=== PATIENT | female | born 1930 | race Caucasian/White ===

== ENCOUNTER → 2017-08-11 13:22 | Inpatient (IN) | payer MEDICAID, MEDICARE ==
[2015-05-14] MEDS: CALCIUM CARBONATE PO SCH (21:10)
[2015-05-14] MEDS: DABIGATRAN 150 MG PO SCH (21:10)
[2015-05-14] MEDS: ZINC GLUCONATE PO SCH (21:10)
[2015-05-14] MEDS: MAGNESIUM OXIDE PO SCH (21:10)
[2015-05-14] MEDS: UBIDECARENONE 100 MG PO SCH (21:10)
[2015-05-14] MEDS: CALCIUM PO SCH (21:11)
[2015-05-14] MEDS: OMEGA FISH OIL PO SCH (21:11)
[2015-05-14] MEDS: [UNRECOGNIZED DRUG - OTHER] PO SCH (21:11)
[2015-05-14] MEDS: MULTIVITAMINS WITH IRON PO SCH (21:11)
[2015-05-14] MEDS: FOLIC ACID PO SCH (21:11)
--- NOTE | 2015-05-14 23:37 | HP ---
CHIEF COMPLAINT: Increasing leg weakness. HISTORY OF PRESENT ILLNESS: This is an 85-year-old female, who previously lived independently at her home in [place], however, she is having increasing weakness of her legs and difficulty getting around her home over the last several years, but definitely increasing in the last 6 months. The patient does have a history of atrial fibrillation. She denies any fast heart rates, unless she drinks caffeine. She has never had a heart attack or stroke. She does have hypothyroidism, treated with Synthroid. Otherwise also does take metoprolol, but no other prescription medications. She relies on a bath aide to come in her home and help her once a week. She is having difficulty with getting dressed due to shoulder pain. ALLERGIES: Include none. MEDICATIONS: Include, metoprolol 12.5 mg daily, Coenzyme Q10 100 b.i.d., calcium, magnesium and zinc daily, vitamin D 5000 units daily, Shedd-3 1200 daily, multivitamin daily, levothyroxine 75 mcg daily and Pradaxa 150 b.i.d. PAST MEDICAL HISTORY: Includes, 1. Atrial fibrillation with possible TIA with vision changes back in 2010, admitted to [facility] for that. 2. Hypothyroidism. 3. Leg weakness. 4. Hypertension. 5. Osteoarthritis. PAST SURGICAL HISTORY: She has had cataracts and a partial hysterectomy. FAMILY HISTORY: Her mom had an MD at 62, . Dad had breast cancer at age 80, but lived to [facility]08/11. He had heart disease and a pacer as well. SOCIAL HISTORY: She is . Her had Alzheimer's, about 4 years ago. She has 4 children. She has a daughter who lives in [place], also who works at the hospital. A son in [place]. Another son in [place] and one in [place], [place]. She is a nonsmoker, nondrinker. REVIEW OF SYSTEMS: General: No weight changes. Neurologic: No numbness, no tingling. Musculoskeletal: She has knee pain especially on the left knee. Cardiac: No chest pain. No cough. No shortness of breath. Respiratory: No coughing. Abdomen: No abdominal pain, diarrhea or constipation. Otherwise all systems reviewed and found to be negative unless otherwise stated. PHYSICAL EXAMINATION: Vital Signs: Include a temperature of 98, pulse 52, blood pressure 143/70, respiratory rate 16, O2 96% on room air. General: She is in no acute distress. Heart: Irregularly irregular without murmur. Lungs: Sounds are clear to auscultation bilaterally without crackles or wheezes. Abdomen: Positive bowel sounds. Soft and nontender. Extremities: Warm and dry, no edema. Dorsalis pedis pulses 2+. Mental Status: She is alert and orientated x3. Gait was not observed. ASSESSMENT AND PLAN: Leg weakness and pain, probably related to arthritis. We will continue to monitor her thyroid. Her last TSH was suppressed. We will also check a CK, ESR, B12 level to rule out other causes of weakness and we will do that right now. She did have lab work back in March as well, and her glucose was 125 at that point, so we will check an A1c also. Otherwise, CBC again for weakness. We will continue to monitor her on Swing Bed with PT and OT involved, Senior Wealth Advisor as well. The patient does not feel she can return home and needs assistance for dressing and bathing and toileting. MKA: 05/14/2015 17:41:04 MODL: 05/14/2015 23:30:43 /[id number]
[2015-05-15] MEDS: Levothyroxine 75 MCG Tab PO SCH (06:24)
[2015-05-15] MEDS: CHOLECALCIFEROL 5000 UNIT PO SCH (08:58)
[2015-05-15] MEDS: METOPROLOL TARTRATE 12.5 MG PO SCH (08:59)
[2015-05-15] MEDS: DABIGATRAN 150 MG PO SCH ×2 (09:00→20:19)
[2015-05-15] MEDS: UBIDECARENONE 100 MG PO SCH ×2 (09:01→20:18)
[2015-05-15] MEDS: CALCIUM CARBONATE PO SCH (20:14)
[2015-05-15] MEDS: ZINC GLUCONATE PO SCH (20:14)
[2015-05-15] MEDS: MAGNESIUM OXIDE PO SCH (20:14)
[2015-05-15] MEDS: OMEGA FISH OIL PO SCH (20:15)
[2015-05-15] MEDS: CALCIUM PO SCH (20:18)
[2015-05-15] MEDS: [UNRECOGNIZED DRUG - OTHER] PO SCH (20:18)
[2015-05-15] MEDS: MULTIVITAMINS WITH IRON PO SCH (20:18)
[2015-05-15] MEDS: FOLIC ACID PO SCH (20:18)
[2015-05-16] MEDS: Levothyroxine 75 MCG Tab PO SCH (06:09)
[2015-05-16] MEDS: CHOLECALCIFEROL 5000 UNIT PO SCH (09:04)
[2015-05-16] MEDS: METOPROLOL TARTRATE 12.5 MG PO SCH (09:05)
[2015-05-16] MEDS: UBIDECARENONE 100 MG PO SCH ×2 (09:06→20:33)
[2015-05-16] MEDS: DABIGATRAN 150 MG PO SCH ×2 (09:06→20:31)
[2015-05-16] MEDS: FOLIC ACID PO SCH (20:32)
[2015-05-16] MEDS: MAGNESIUM OXIDE PO SCH (20:32)
[2015-05-16] MEDS: MULTIVITAMINS WITH IRON PO SCH (20:32)
[2015-05-16] MEDS: CALCIUM CARBONATE PO SCH (20:32)
[2015-05-16] MEDS: CALCIUM PO SCH (20:32)
[2015-05-16] MEDS: ZINC GLUCONATE PO SCH (20:32)
[2015-05-16] MEDS: [UNRECOGNIZED DRUG - OTHER] PO SCH (20:32)
[2015-05-16] MEDS: OMEGA FISH OIL PO SCH (20:33)
[2015-05-17] MEDS: Levothyroxine 75 MCG Tab PO SCH (06:05)
[2015-05-17] MEDS: UBIDECARENONE 100 MG PO SCH ×2 (08:41→20:04)
[2015-05-17] MEDS: METOPROLOL TARTRATE 12.5 MG PO SCH (08:42)
[2015-05-17] MEDS: CHOLECALCIFEROL 5000 UNIT PO SCH (08:42)
[2015-05-17] MEDS: DABIGATRAN 150 MG PO SCH ×2 (08:43→20:03)
[2015-05-17] MEDS: CALCIUM CARBONATE PO SCH (20:03)
[2015-05-17] MEDS: FOLIC ACID PO SCH (20:03)
[2015-05-17] MEDS: MAGNESIUM OXIDE PO SCH (20:03)
[2015-05-17] MEDS: [UNRECOGNIZED DRUG - OTHER] PO SCH (20:03)
[2015-05-17] MEDS: ZINC GLUCONATE PO SCH (20:03)
[2015-05-17] MEDS: CALCIUM PO SCH (20:03)
[2015-05-17] MEDS: MULTIVITAMINS WITH IRON PO SCH (20:03)
[2015-05-17] MEDS: OMEGA FISH OIL PO SCH (20:03)
[2015-05-18] MEDS: Levothyroxine 75 MCG Tab PO SCH (06:00)
[2015-05-18] MEDS: CHOLECALCIFEROL 5000 UNIT PO SCH (09:41)
[2015-05-18] MEDS: DABIGATRAN 150 MG PO SCH ×2 (09:42→19:47)
[2015-05-18] MEDS: METOPROLOL TARTRATE 12.5 MG PO SCH (09:42)
[2015-05-18] MEDS: UBIDECARENONE 100 MG PO SCH ×2 (09:43→19:49)
[2015-05-18] MEDS: ZINC GLUCONATE PO SCH (19:47)
[2015-05-18] MEDS: OMEGA FISH OIL PO SCH (19:47)
[2015-05-18] MEDS: MAGNESIUM OXIDE PO SCH (19:47)
[2015-05-18] MEDS: CALCIUM CARBONATE PO SCH (19:47)
[2015-05-18] MEDS: [UNRECOGNIZED DRUG - OTHER] PO SCH (19:48)
[2015-05-18] MEDS: CALCIUM PO SCH (19:48)
[2015-05-18] MEDS: FOLIC ACID PO SCH (19:48)
[2015-05-18] MEDS: MULTIVITAMINS WITH IRON PO SCH (19:48)
[2015-05-19] MEDS: Levothyroxine 75 MCG Tab PO SCH (06:10)
[2015-05-19] MEDS: METOPROLOL TARTRATE 12.5 MG PO SCH (10:02)
[2015-05-19] MEDS: CHOLECALCIFEROL 5000 UNIT PO SCH (10:03)
[2015-05-19] MEDS: UBIDECARENONE 100 MG PO SCH ×2 (10:04→20:50)
[2015-05-19] MEDS: DABIGATRAN 150 MG PO SCH ×2 (10:04→20:50)
[2015-05-19] MEDS: MAGNESIUM OXIDE PO SCH (20:49)
[2015-05-19] MEDS: CALCIUM CARBONATE PO SCH (20:49)
[2015-05-19] MEDS: ZINC GLUCONATE PO SCH (20:49)
[2015-05-19] MEDS: [UNRECOGNIZED DRUG - OTHER] PO SCH (20:50)
[2015-05-19] MEDS: MULTIVITAMINS WITH IRON PO SCH (20:50)
[2015-05-19] MEDS: CALCIUM PO SCH (20:50)
[2015-05-19] MEDS: FOLIC ACID PO SCH (20:50)
[2015-05-19] MEDS: OMEGA FISH OIL PO SCH (20:50)
[2015-05-20] MEDS: Levothyroxine 75 MCG Tab PO SCH (06:51)
[2015-05-20] MEDS: DABIGATRAN 150 MG PO SCH ×2 (08:19→20:21)
[2015-05-20] MEDS: CHOLECALCIFEROL 5000 UNIT PO SCH (08:20)
[2015-05-20] MEDS: UBIDECARENONE 100 MG PO SCH ×2 (08:20→20:22)
[2015-05-20] MEDS: METOPROLOL TARTRATE 12.5 MG PO SCH (08:20)
[2015-05-20] MEDS: OMEGA FISH OIL PO SCH (20:21)
[2015-05-20] MEDS: MAGNESIUM OXIDE PO SCH (20:21)
[2015-05-20] MEDS: CALCIUM CARBONATE PO SCH (20:21)
[2015-05-20] MEDS: ZINC GLUCONATE PO SCH (20:21)
[2015-05-20] MEDS: FOLIC ACID PO SCH (20:22)
[2015-05-20] MEDS: MULTIVITAMINS WITH IRON PO SCH (20:22)
[2015-05-20] MEDS: CALCIUM PO SCH (20:22)
[2015-05-20] MEDS: [UNRECOGNIZED DRUG - OTHER] PO SCH (20:22)
[2015-05-21] MEDS: Levothyroxine 75 MCG Tab PO SCH (06:29)
[2015-05-21] MEDS: CHOLECALCIFEROL 5000 UNIT PO SCH (08:51)
[2015-05-21] MEDS: METOPROLOL TARTRATE 12.5 MG PO SCH (08:51)
[2015-05-21] MEDS: UBIDECARENONE 100 MG PO SCH ×2 (08:52→20:02)
[2015-05-21] MEDS: DABIGATRAN 150 MG PO SCH ×2 (08:52→20:01)
[2015-05-21] MEDS: Acetaminophen 500 MG Tab PO PRN (14:39)
[2015-05-21] MEDS: CALCIUM PO SCH (20:01)
[2015-05-21] MEDS: [UNRECOGNIZED DRUG - OTHER] PO SCH (20:01)
[2015-05-21] MEDS: MULTIVITAMINS WITH IRON PO SCH (20:01)
[2015-05-21] MEDS: FOLIC ACID PO SCH (20:01)
[2015-05-21] MEDS: OMEGA FISH OIL PO SCH (20:01)
[2015-05-21] MEDS: MAGNESIUM OXIDE PO SCH (20:02)
[2015-05-21] MEDS: CALCIUM CARBONATE PO SCH (20:02)
[2015-05-21] MEDS: ZINC GLUCONATE PO SCH (20:02)
[2015-05-22] MEDS: Levothyroxine 75 MCG Tab PO SCH (06:12)
[2015-05-22] MEDS: UBIDECARENONE 100 MG PO SCH ×2 (07:53→19:38)
[2015-05-22] MEDS: CHOLECALCIFEROL 5000 UNIT PO SCH (07:54)
[2015-05-22] MEDS: METOPROLOL TARTRATE 12.5 MG PO SCH ×2 (07:54→08:00)
[2015-05-22] MEDS: DABIGATRAN 150 MG PO SCH ×2 (07:55→19:37)
[2015-05-22] MEDS: ZINC GLUCONATE PO SCH (19:37)
[2015-05-22] MEDS: MAGNESIUM OXIDE PO SCH (19:37)
[2015-05-22] MEDS: CALCIUM CARBONATE PO SCH (19:37)
[2015-05-22] MEDS: FOLIC ACID PO SCH (19:38)
[2015-05-22] MEDS: CALCIUM PO SCH (19:38)
[2015-05-22] MEDS: MULTIVITAMINS WITH IRON PO SCH (19:38)
[2015-05-22] MEDS: [UNRECOGNIZED DRUG - OTHER] PO SCH (19:38)
[2015-05-22] MEDS: OMEGA FISH OIL PO SCH (19:38)
[2015-05-23] MEDS: Levothyroxine 75 MCG Tab PO SCH (06:12)
[2015-05-23] MEDS: DABIGATRAN 150 MG PO SCH ×2 (07:56→20:39)
[2015-05-23] MEDS: UBIDECARENONE 100 MG PO SCH ×2 (07:57→20:39)
[2015-05-23] MEDS: CHOLECALCIFEROL 5000 UNIT PO SCH (07:57)
[2015-05-23] MEDS: METOPROLOL TARTRATE 12.5 MG PO SCH (07:57)
[2015-05-23] MEDS: CALCIUM CARBONATE PO SCH (20:38)
[2015-05-23] MEDS: MAGNESIUM OXIDE PO SCH (20:38)
[2015-05-23] MEDS: ZINC GLUCONATE PO SCH (20:38)
[2015-05-23] MEDS: [UNRECOGNIZED DRUG - OTHER] PO SCH (20:39)
[2015-05-23] MEDS: FOLIC ACID PO SCH (20:39)
[2015-05-23] MEDS: OMEGA FISH OIL PO SCH (20:39)
[2015-05-23] MEDS: CALCIUM PO SCH (20:39)
[2015-05-23] MEDS: MULTIVITAMINS WITH IRON PO SCH (20:39)
[2015-05-24] MEDS: Levothyroxine 75 MCG Tab PO SCH (05:57)
[2015-05-24] MEDS: CHOLECALCIFEROL 5000 UNIT PO SCH (08:18)
[2015-05-24] MEDS: DABIGATRAN 150 MG PO SCH ×2 (08:23→20:20)
[2015-05-24] MEDS: UBIDECARENONE 100 MG PO SCH ×2 (08:23→20:21)
[2015-05-24] MEDS: METOPROLOL TARTRATE 12.5 MG PO SCH (08:25)
[2015-05-24] MEDS: ZINC GLUCONATE PO SCH (20:20)
[2015-05-24] MEDS: OMEGA FISH OIL PO SCH (20:20)
[2015-05-24] MEDS: MAGNESIUM OXIDE PO SCH (20:20)
[2015-05-24] MEDS: CALCIUM CARBONATE PO SCH (20:20)
[2015-05-24] MEDS: CALCIUM PO SCH (20:21)
[2015-05-24] MEDS: MULTIVITAMINS WITH IRON PO SCH (20:21)
[2015-05-24] MEDS: FOLIC ACID PO SCH (20:21)
[2015-05-24] MEDS: [UNRECOGNIZED DRUG - OTHER] PO SCH (20:21)
[2015-05-25] MEDS: Levothyroxine 75 MCG Tab PO SCH (06:22)
[2015-05-25] MEDS: METOPROLOL TARTRATE 12.5 MG PO SCH (08:54)
[2015-05-25] MEDS: CHOLECALCIFEROL 5000 UNIT PO SCH (08:54)
[2015-05-25] MEDS: DABIGATRAN 150 MG PO SCH ×2 (08:55→20:48)
[2015-05-25] MEDS: UBIDECARENONE 100 MG PO SCH ×2 (08:55→20:48)
[2015-05-25] MEDS: CALCIUM PO SCH (20:47)
[2015-05-25] MEDS: CALCIUM CARBONATE PO SCH (20:47)
[2015-05-25] MEDS: OMEGA FISH OIL PO SCH (20:47)
[2015-05-25] MEDS: MULTIVITAMINS WITH IRON PO SCH (20:47)
[2015-05-25] MEDS: [UNRECOGNIZED DRUG - OTHER] PO SCH (20:47)
[2015-05-25] MEDS: ZINC GLUCONATE PO SCH (20:47)
[2015-05-25] MEDS: FOLIC ACID PO SCH (20:47)
[2015-05-25] MEDS: MAGNESIUM OXIDE PO SCH (20:47)
[2015-05-26] MEDS: Levothyroxine 75 MCG Tab PO SCH (06:39)
[2015-05-26] MEDS: CHOLECALCIFEROL 5000 UNIT PO SCH (08:59)
[2015-05-26] MEDS: METOPROLOL TARTRATE 12.5 MG PO SCH (08:59)
[2015-05-26] MEDS: DABIGATRAN 150 MG PO SCH ×2 (08:59→20:16)
[2015-05-26] MEDS: UBIDECARENONE 100 MG PO SCH ×2 (08:59→20:17)
[2015-05-26] MEDS: MULTIVITAMINS WITH IRON PO SCH (20:16)
[2015-05-26] MEDS: CALCIUM PO SCH (20:16)
[2015-05-26] MEDS: FOLIC ACID PO SCH (20:16)
[2015-05-26] MEDS: [UNRECOGNIZED DRUG - OTHER] PO SCH (20:16)
[2015-05-26] MEDS: CALCIUM CARBONATE PO SCH (20:17)
[2015-05-26] MEDS: MAGNESIUM OXIDE PO SCH (20:17)
[2015-05-26] MEDS: ZINC GLUCONATE PO SCH (20:17)
[2015-05-26] MEDS: OMEGA FISH OIL PO SCH (20:17)
[2015-05-27] MEDS: Levothyroxine 75 MCG Tab PO SCH (06:47)
[2015-05-27] MEDS: CHOLECALCIFEROL 5000 UNIT PO SCH (07:32)
[2015-05-27] MEDS: METOPROLOL TARTRATE 12.5 MG PO SCH (07:33)
[2015-05-27] MEDS: DABIGATRAN 150 MG PO SCH ×2 (07:34→19:56)
[2015-05-27] MEDS: UBIDECARENONE 100 MG PO SCH ×2 (07:34→19:56)
[2015-05-27] MEDS: MAGNESIUM OXIDE PO SCH (19:56)
[2015-05-27] MEDS: [UNRECOGNIZED DRUG - OTHER] PO SCH (19:56)
[2015-05-27] MEDS: CALCIUM PO SCH (19:56)
[2015-05-27] MEDS: CALCIUM CARBONATE PO SCH (19:56)
[2015-05-27] MEDS: MULTIVITAMINS WITH IRON PO SCH (19:56)
[2015-05-27] MEDS: FOLIC ACID PO SCH (19:56)
[2015-05-27] MEDS: OMEGA FISH OIL PO SCH (19:56)
[2015-05-27] MEDS: ZINC GLUCONATE PO SCH (19:56)
[2015-05-28] MEDS: Levothyroxine 75 MCG Tab PO SCH (05:50)
[2015-05-28] MEDS: CHOLECALCIFEROL 5000 UNIT PO SCH (08:07)
[2015-05-28] MEDS: DABIGATRAN 150 MG PO SCH ×2 (08:07→20:34)
[2015-05-28] MEDS: UBIDECARENONE 100 MG PO SCH ×2 (08:08→20:35)
[2015-05-28] MEDS: METOPROLOL TARTRATE 12.5 MG PO SCH (08:08)
[2015-05-28] MEDS: ZINC GLUCONATE PO SCH (20:33)
[2015-05-28] MEDS: CALCIUM CARBONATE PO SCH (20:33)
[2015-05-28] MEDS: MAGNESIUM OXIDE PO SCH (20:33)
[2015-05-28] MEDS: MULTIVITAMINS WITH IRON PO SCH (20:34)
[2015-05-28] MEDS: [UNRECOGNIZED DRUG - OTHER] PO SCH (20:34)
[2015-05-28] MEDS: CALCIUM PO SCH (20:34)
[2015-05-28] MEDS: FOLIC ACID PO SCH (20:34)
[2015-05-28] MEDS: OMEGA FISH OIL PO SCH (20:34)
[2015-05-29] MEDS: Levothyroxine 75 MCG Tab PO SCH (06:53)
[2015-05-29] MEDS: CHOLECALCIFEROL 5000 UNIT PO SCH (08:10)
[2015-05-29] MEDS: DABIGATRAN 150 MG PO SCH ×2 (08:10→20:08)
[2015-05-29] MEDS: UBIDECARENONE 100 MG PO SCH ×2 (08:11→20:09)
[2015-05-29] MEDS: METOPROLOL TARTRATE 12.5 MG PO SCH (08:11)
[2015-05-29] MEDS: Acetaminophen 500 MG Tab PO PRN (12:44)
[2015-05-29] MEDS: OMEGA FISH OIL PO SCH (20:08)
[2015-05-29] MEDS: MAGNESIUM OXIDE PO SCH (20:08)
[2015-05-29] MEDS: MULTIVITAMINS WITH IRON PO SCH (20:08)
[2015-05-29] MEDS: CALCIUM PO SCH (20:08)
[2015-05-29] MEDS: FOLIC ACID PO SCH (20:08)
[2015-05-29] MEDS: [UNRECOGNIZED DRUG - OTHER] PO SCH (20:08)
[2015-05-29] MEDS: ZINC GLUCONATE PO SCH (20:08)
[2015-05-29] MEDS: CALCIUM CARBONATE PO SCH (20:08)
[2015-05-30] MEDS: Levothyroxine 75 MCG Tab PO SCH (06:27)
[2015-05-30] MEDS: CHOLECALCIFEROL 5000 UNIT PO SCH (08:32)
[2015-05-30] MEDS: UBIDECARENONE 100 MG PO SCH ×2 (08:32→20:51)
[2015-05-30] MEDS: METOPROLOL TARTRATE 12.5 MG PO SCH (08:32)
[2015-05-30] MEDS: DABIGATRAN 150 MG PO SCH ×2 (08:33→20:50)
[2015-05-30] MEDS: CALCIUM CARBONATE PO SCH (20:51)
[2015-05-30] MEDS: OMEGA FISH OIL PO SCH (20:51)
[2015-05-30] MEDS: MULTIVITAMINS WITH IRON PO SCH (20:51)
[2015-05-30] MEDS: MAGNESIUM OXIDE PO SCH (20:51)
[2015-05-30] MEDS: ZINC GLUCONATE PO SCH (20:51)
[2015-05-30] MEDS: CALCIUM PO SCH (20:51)
[2015-05-30] MEDS: [UNRECOGNIZED DRUG - OTHER] PO SCH (20:51)
[2015-05-30] MEDS: FOLIC ACID PO SCH (20:51)
[2015-05-31] MEDS: Levothyroxine 75 MCG Tab PO SCH (06:13)
[2015-05-31] MEDS: CHOLECALCIFEROL 5000 UNIT PO SCH (08:27)
[2015-05-31] MEDS: UBIDECARENONE 100 MG PO SCH ×2 (08:27→20:06)
[2015-05-31] MEDS: METOPROLOL TARTRATE 12.5 MG PO SCH (08:27)
[2015-05-31] MEDS: DABIGATRAN 150 MG PO SCH ×2 (08:27→20:05)
[2015-05-31] MEDS: MAGNESIUM OXIDE PO SCH (20:05)
[2015-05-31] MEDS: ZINC GLUCONATE PO SCH (20:05)
[2015-05-31] MEDS: CALCIUM CARBONATE PO SCH (20:05)
[2015-05-31] MEDS: OMEGA FISH OIL PO SCH (20:06)
[2015-05-31] MEDS: MULTIVITAMINS WITH IRON PO SCH (20:06)
[2015-05-31] MEDS: CALCIUM PO SCH (20:06)
[2015-05-31] MEDS: FOLIC ACID PO SCH (20:06)
[2015-05-31] MEDS: [UNRECOGNIZED DRUG - OTHER] PO SCH (20:06)
[2015-06-01] MEDS: Levothyroxine 75 MCG Tab PO SCH (06:28)
[2015-06-01] MEDS: UBIDECARENONE 100 MG PO SCH ×2 (07:49→19:40)
[2015-06-01] MEDS: METOPROLOL TARTRATE 12.5 MG PO SCH (07:49)
[2015-06-01] MEDS: CHOLECALCIFEROL 5000 UNIT PO SCH (07:49)
[2015-06-01] MEDS: DABIGATRAN 150 MG PO SCH ×2 (07:50→19:39)
[2015-06-01] MEDS: MULTIVITAMINS WITH IRON PO SCH (19:39)
[2015-06-01] MEDS: [UNRECOGNIZED DRUG - OTHER] PO SCH (19:39)
[2015-06-01] MEDS: CALCIUM PO SCH (19:39)
[2015-06-01] MEDS: FOLIC ACID PO SCH (19:39)
[2015-06-01] MEDS: OMEGA FISH OIL PO SCH (19:39)
[2015-06-01] MEDS: ZINC GLUCONATE PO SCH (19:40)
[2015-06-01] MEDS: CALCIUM CARBONATE PO SCH (19:40)
[2015-06-01] MEDS: MAGNESIUM OXIDE PO SCH (19:40)
[2015-06-02] MEDS: Levothyroxine 75 MCG Tab PO SCH (06:44)
[2015-06-02] MEDS: METOPROLOL TARTRATE 12.5 MG PO SCH (08:36)
[2015-06-02] MEDS: CHOLECALCIFEROL 5000 UNIT PO SCH (08:36)
[2015-06-02] MEDS: DABIGATRAN 150 MG PO SCH ×2 (08:37→19:41)
[2015-06-02] MEDS: UBIDECARENONE 100 MG PO SCH ×2 (08:37→19:43)
[2015-06-02] MEDS: OMEGA FISH OIL PO SCH (19:41)
[2015-06-02] MEDS: [UNRECOGNIZED DRUG - OTHER] PO SCH (19:42)
[2015-06-02] MEDS: FOLIC ACID PO SCH (19:42)
[2015-06-02] MEDS: MULTIVITAMINS WITH IRON PO SCH (19:42)
[2015-06-02] MEDS: CALCIUM CARBONATE PO SCH (19:42)
[2015-06-02] MEDS: CALCIUM PO SCH (19:42)
[2015-06-02] MEDS: ZINC GLUCONATE PO SCH (19:42)
[2015-06-02] MEDS: MAGNESIUM OXIDE PO SCH (19:42)
[2015-06-03] MEDS: Levothyroxine 75 MCG Tab PO SCH (06:39)
[2015-06-03] MEDS: UBIDECARENONE 100 MG PO SCH ×2 (08:56→20:12)
[2015-06-03] MEDS: METOPROLOL TARTRATE 12.5 MG PO SCH (08:56)
[2015-06-03] MEDS: CHOLECALCIFEROL 5000 UNIT PO SCH (08:58)
[2015-06-03] MEDS: DABIGATRAN 150 MG PO SCH ×2 (08:59→20:10)
[2015-06-03] MEDS: OMEGA FISH OIL PO SCH (20:11)
[2015-06-03] MEDS: FOLIC ACID PO SCH (20:11)
[2015-06-03] MEDS: ZINC GLUCONATE PO SCH (20:11)
[2015-06-03] MEDS: MAGNESIUM OXIDE PO SCH (20:11)
[2015-06-03] MEDS: MULTIVITAMINS WITH IRON PO SCH (20:11)
[2015-06-03] MEDS: CALCIUM CARBONATE PO SCH (20:11)
[2015-06-03] MEDS: [UNRECOGNIZED DRUG - OTHER] PO SCH (20:11)
[2015-06-03] MEDS: CALCIUM PO SCH (20:11)
[2015-06-04] MEDS: Levothyroxine 75 MCG Tab PO SCH (06:37)
[2015-06-04] MEDS: CHOLECALCIFEROL 5000 UNIT PO SCH (09:34)
[2015-06-04] MEDS: METOPROLOL TARTRATE 12.5 MG PO SCH (09:34)
[2015-06-04] MEDS: DABIGATRAN 150 MG PO SCH ×2 (09:34→20:55)
[2015-06-04] MEDS: UBIDECARENONE 100 MG PO SCH ×2 (09:35→20:57)
[2015-06-04] MEDS: FOLIC ACID PO SCH (20:56)
[2015-06-04] MEDS: MAGNESIUM OXIDE PO SCH (20:56)
[2015-06-04] MEDS: ZINC GLUCONATE PO SCH (20:56)
[2015-06-04] MEDS: MULTIVITAMINS WITH IRON PO SCH (20:56)
[2015-06-04] MEDS: [UNRECOGNIZED DRUG - OTHER] PO SCH (20:56)
[2015-06-04] MEDS: OMEGA FISH OIL PO SCH (20:56)
[2015-06-04] MEDS: CALCIUM PO SCH (20:56)
[2015-06-04] MEDS: CALCIUM CARBONATE PO SCH (20:56)
[2015-06-05] MEDS: Levothyroxine 75 MCG Tab PO SCH (06:10)
[2015-06-05] MEDS: UBIDECARENONE 100 MG PO SCH ×2 (08:46→20:21)
[2015-06-05] MEDS: CHOLECALCIFEROL 5000 UNIT PO SCH (08:46)
[2015-06-05] MEDS: METOPROLOL TARTRATE 12.5 MG PO SCH (08:47)
[2015-06-05] MEDS: DABIGATRAN 150 MG PO SCH ×2 (08:49→20:20)
[2015-06-05] MEDS: FOLIC ACID PO SCH (20:20)
[2015-06-05] MEDS: [UNRECOGNIZED DRUG - OTHER] PO SCH (20:20)
[2015-06-05] MEDS: MULTIVITAMINS WITH IRON PO SCH (20:20)
[2015-06-05] MEDS: OMEGA FISH OIL PO SCH (20:20)
[2015-06-05] MEDS: CALCIUM PO SCH (20:20)
[2015-06-05] MEDS: ZINC GLUCONATE PO SCH (20:20)
[2015-06-05] MEDS: CALCIUM CARBONATE PO SCH (20:20)
[2015-06-05] MEDS: MAGNESIUM OXIDE PO SCH (20:20)
[2015-06-06] MEDS: Levothyroxine 75 MCG Tab PO SCH (06:29)
[2015-06-06] MEDS: DABIGATRAN 150 MG PO SCH ×2 (09:07→19:53)
[2015-06-06] MEDS: METOPROLOL TARTRATE 12.5 MG PO SCH (09:07)
[2015-06-06] MEDS: CHOLECALCIFEROL 5000 UNIT PO SCH (09:07)
[2015-06-06] MEDS: UBIDECARENONE 100 MG PO SCH ×2 (09:07→19:54)
[2015-06-06] MEDS: CALCIUM CARBONATE PO SCH (19:53)
[2015-06-06] MEDS: ZINC GLUCONATE PO SCH (19:53)
[2015-06-06] MEDS: MAGNESIUM OXIDE PO SCH (19:53)
[2015-06-06] MEDS: CALCIUM PO SCH (19:54)
[2015-06-06] MEDS: FOLIC ACID PO SCH (19:54)
[2015-06-06] MEDS: OMEGA FISH OIL PO SCH (19:54)
[2015-06-06] MEDS: MULTIVITAMINS WITH IRON PO SCH (19:54)
[2015-06-06] MEDS: [UNRECOGNIZED DRUG - OTHER] PO SCH (19:54)
[2015-06-07] MEDS: Levothyroxine 75 MCG Tab PO SCH (06:22)
[2015-06-07] MEDS: DABIGATRAN 150 MG PO SCH ×2 (08:49→19:41)
[2015-06-07] MEDS: CHOLECALCIFEROL 5000 UNIT PO SCH (08:50)
[2015-06-07] MEDS: METOPROLOL TARTRATE 12.5 MG PO SCH (08:50)
[2015-06-07] MEDS: UBIDECARENONE 100 MG PO SCH ×2 (08:50→19:42)
[2015-06-07] MEDS: Acetaminophen 500 MG Tab PO PRN (12:28)
[2015-06-07] MEDS: MAGNESIUM OXIDE PO SCH (19:41)
[2015-06-07] MEDS: CALCIUM CARBONATE PO SCH (19:41)
[2015-06-07] MEDS: FOLIC ACID PO SCH (19:41)
[2015-06-07] MEDS: MULTIVITAMINS WITH IRON PO SCH (19:41)
[2015-06-07] MEDS: OMEGA FISH OIL PO SCH (19:41)
[2015-06-07] MEDS: ZINC GLUCONATE PO SCH (19:41)
[2015-06-07] MEDS: [UNRECOGNIZED DRUG - OTHER] PO SCH (19:41)
[2015-06-07] MEDS: CALCIUM PO SCH (19:41)
[2015-06-08] MEDS: Levothyroxine 75 MCG Tab PO SCH (06:51)
[2015-06-08] MEDS: DABIGATRAN 150 MG PO SCH ×2 (09:23→20:04)
[2015-06-08] MEDS: METOPROLOL TARTRATE 12.5 MG PO SCH (09:23)
[2015-06-08] MEDS: UBIDECARENONE 100 MG PO SCH ×2 (09:23→20:05)
[2015-06-08] MEDS: CHOLECALCIFEROL 5000 UNIT PO SCH (09:24)
[2015-06-08] MEDS: [UNRECOGNIZED DRUG - OTHER] PO SCH (20:04)
[2015-06-08] MEDS: MULTIVITAMINS WITH IRON PO SCH (20:04)
[2015-06-08] MEDS: CALCIUM PO SCH (20:04)
[2015-06-08] MEDS: MAGNESIUM OXIDE PO SCH (20:04)
[2015-06-08] MEDS: FOLIC ACID PO SCH (20:04)
[2015-06-08] MEDS: CALCIUM CARBONATE PO SCH (20:04)
[2015-06-08] MEDS: ZINC GLUCONATE PO SCH (20:04)
[2015-06-08] MEDS: OMEGA FISH OIL PO SCH (20:05)
[2015-06-09] MEDS: Levothyroxine 75 MCG Tab PO SCH (06:48)
[2015-06-09] MEDS: DABIGATRAN 150 MG PO SCH ×2 (08:26→20:03)
[2015-06-09] MEDS: UBIDECARENONE 100 MG PO SCH ×2 (08:27→20:04)
[2015-06-09] MEDS: CHOLECALCIFEROL 5000 UNIT PO SCH (08:27)
[2015-06-09] MEDS: METOPROLOL TARTRATE 12.5 MG PO SCH (08:28)
[2015-06-09] MEDS: ZINC GLUCONATE PO SCH (20:03)
[2015-06-09] MEDS: OMEGA FISH OIL PO SCH (20:03)
[2015-06-09] MEDS: CALCIUM CARBONATE PO SCH (20:03)
[2015-06-09] MEDS: MAGNESIUM OXIDE PO SCH (20:03)
[2015-06-09] MEDS: CALCIUM PO SCH (20:04)
[2015-06-09] MEDS: [UNRECOGNIZED DRUG - OTHER] PO SCH (20:04)
[2015-06-09] MEDS: FOLIC ACID PO SCH (20:04)
[2015-06-09] MEDS: MULTIVITAMINS WITH IRON PO SCH (20:04)
[2015-06-10] MEDS: Levothyroxine 75 MCG Tab PO SCH (06:11)
[2015-06-10] MEDS: CHOLECALCIFEROL 5000 UNIT PO SCH (07:44)
[2015-06-10] MEDS: METOPROLOL TARTRATE 12.5 MG PO SCH (07:45)
[2015-06-10] MEDS: UBIDECARENONE 100 MG PO SCH ×2 (07:46→20:23)
[2015-06-10] MEDS: DABIGATRAN 150 MG PO SCH ×2 (07:46→20:22)
[2015-06-10] MEDS: MAGNESIUM OXIDE PO SCH (20:22)
[2015-06-10] MEDS: CALCIUM CARBONATE PO SCH (20:22)
[2015-06-10] MEDS: OMEGA FISH OIL PO SCH (20:22)
[2015-06-10] MEDS: ZINC GLUCONATE PO SCH (20:22)
[2015-06-10] MEDS: FOLIC ACID PO SCH (20:23)
[2015-06-10] MEDS: CALCIUM PO SCH (20:23)
[2015-06-10] MEDS: [UNRECOGNIZED DRUG - OTHER] PO SCH (20:23)
[2015-06-10] MEDS: MULTIVITAMINS WITH IRON PO SCH (20:23)
[2015-06-11] MEDS: Levothyroxine 75 MCG Tab PO SCH (06:13)
[2015-06-11] MEDS: DABIGATRAN 150 MG PO SCH ×2 (08:44→20:00)
[2015-06-11] MEDS: UBIDECARENONE 100 MG PO SCH ×2 (08:45→20:01)
[2015-06-11] MEDS: METOPROLOL TARTRATE 12.5 MG PO SCH (08:45)
[2015-06-11] MEDS: CHOLECALCIFEROL 5000 UNIT PO SCH (08:45)
--- NOTE | 2015-06-11 09:37 | PN ---
Progress Note for EMILY SNEED Date: 06/11/2015 Room #: VM.207 SUBJECTIVE: This is an 85-year-old, on swing bed due to impaired mobility. She is using assistance to help her get dressed. I reviewed her lab work with her and all looked okay. She is still having a lot of weakness in her legs and her arms, but it has been coming on for years and her sedimentation rate was normal. She has no pain, no cough, no shortness of breath. OBJECTIVE: Vital Signs: Objectively, her temperature is 98.2, pulse 91, blood pressure 151/85, respiratory rate 20, O2 is 96 on room air. General: She is in no acute distress. Heart: Irregularly irregular. Lungs: Clear to auscultation bilaterally without crackles or wheezes. Extremities: Warm and dry. No edema. Mental Status: Alert and orientated x3. ASSESSMENT: 1. Hypothyroidism, slightly overtreated. I am going to try skipping just 1 day a week on the levothyroxine. We will repeat a level at the end of July. 2. Atrial fibrillation with probable transient ischemic attack back in 2010. 3. Chronic leg weakness. 4. Hypertension. 5. Osteoarthritis. PLAN: The patient will continue swing bed cares. Will continue to assist her with her ADL's. Will continue to encourage ambulation. She has not had any falls. MKA: 06/11/2015 09:09:14 MODL: 06/11/2015 09:19:11 /[id number]
[2015-06-11] MEDS: ZINC GLUCONATE PO SCH (20:00)
[2015-06-11] MEDS: OMEGA FISH OIL PO SCH (20:00)
[2015-06-11] MEDS: CALCIUM CARBONATE PO SCH (20:00)
[2015-06-11] MEDS: MAGNESIUM OXIDE PO SCH (20:00)
[2015-06-11] MEDS: FOLIC ACID PO SCH (20:01)
[2015-06-11] MEDS: [UNRECOGNIZED DRUG - OTHER] PO SCH (20:01)
[2015-06-11] MEDS: CALCIUM PO SCH (20:01)
[2015-06-11] MEDS: MULTIVITAMINS WITH IRON PO SCH (20:01)
[2015-06-12] MEDS: Levothyroxine 75 MCG Tab PO SCH (06:30)
[2015-06-12] MEDS: CHOLECALCIFEROL 5000 UNIT PO SCH (08:41)
[2015-06-12] MEDS: METOPROLOL TARTRATE 12.5 MG PO SCH (08:42)
[2015-06-12] MEDS: UBIDECARENONE 100 MG PO SCH ×2 (08:42→21:25)
[2015-06-12] MEDS: DABIGATRAN 150 MG PO SCH ×2 (08:43→21:24)
[2015-06-12] MEDS: MAGNESIUM OXIDE PO SCH (21:25)
[2015-06-12] MEDS: CALCIUM PO SCH (21:25)
[2015-06-12] MEDS: ZINC GLUCONATE PO SCH (21:25)
[2015-06-12] MEDS: FOLIC ACID PO SCH (21:25)
[2015-06-12] MEDS: OMEGA FISH OIL PO SCH (21:25)
[2015-06-12] MEDS: MULTIVITAMINS WITH IRON PO SCH (21:25)
[2015-06-12] MEDS: CALCIUM CARBONATE PO SCH (21:25)
[2015-06-12] MEDS: [UNRECOGNIZED DRUG - OTHER] PO SCH (21:25)
[2015-06-13] MEDS: Levothyroxine 75 MCG Tab PO SCH (06:41)
[2015-06-13] MEDS: CHOLECALCIFEROL 5000 UNIT PO SCH (08:20)
[2015-06-13] MEDS: METOPROLOL TARTRATE 12.5 MG PO SCH (08:20)
[2015-06-13] MEDS: UBIDECARENONE 100 MG PO SCH ×2 (08:20→20:11)
[2015-06-13] MEDS: DABIGATRAN 150 MG PO SCH ×2 (08:22→20:11)
[2015-06-13] MEDS: CALCIUM CARBONATE PO SCH (20:11)
[2015-06-13] MEDS: MAGNESIUM OXIDE PO SCH (20:11)
[2015-06-13] MEDS: ZINC GLUCONATE PO SCH (20:11)
[2015-06-13] MEDS: OMEGA FISH OIL PO SCH (20:11)
[2015-06-13] MEDS: CALCIUM PO SCH (20:14)
[2015-06-13] MEDS: [UNRECOGNIZED DRUG - OTHER] PO SCH (20:14)
[2015-06-13] MEDS: FOLIC ACID PO SCH (20:14)
[2015-06-13] MEDS: MULTIVITAMINS WITH IRON PO SCH (20:14)
[2015-06-14] MEDS: Levothyroxine 75 MCG Tab PO SCH (06:40)
[2015-06-14] MEDS: CHOLECALCIFEROL 5000 UNIT PO SCH (09:08)
[2015-06-14] MEDS: UBIDECARENONE 100 MG PO SCH ×2 (09:09→20:54)
[2015-06-14] MEDS: METOPROLOL TARTRATE 12.5 MG PO SCH (09:09)
[2015-06-14] MEDS: DABIGATRAN 150 MG PO SCH ×2 (09:10→20:54)
[2015-06-14] MEDS: CALCIUM CARBONATE PO SCH (20:53)
[2015-06-14] MEDS: ZINC GLUCONATE PO SCH (20:53)
[2015-06-14] MEDS: MAGNESIUM OXIDE PO SCH (20:53)
[2015-06-14] MEDS: FOLIC ACID PO SCH (20:54)
[2015-06-14] MEDS: [UNRECOGNIZED DRUG - OTHER] PO SCH (20:54)
[2015-06-14] MEDS: CALCIUM PO SCH (20:54)
[2015-06-14] MEDS: MULTIVITAMINS WITH IRON PO SCH (20:54)
[2015-06-14] MEDS: OMEGA FISH OIL PO SCH (20:54)
[2015-06-15] MEDS: Levothyroxine 75 MCG Tab PO SCH (06:19)
[2015-06-15] MEDS: DABIGATRAN 150 MG PO SCH ×2 (08:46→19:55)
[2015-06-15] MEDS: CHOLECALCIFEROL 5000 UNIT PO SCH (08:46)
[2015-06-15] MEDS: METOPROLOL TARTRATE 12.5 MG PO SCH (08:46)
[2015-06-15] MEDS: UBIDECARENONE 100 MG PO SCH ×2 (08:47→19:54)
[2015-06-15] MEDS: [UNRECOGNIZED DRUG - OTHER] PO SCH (19:54)
[2015-06-15] MEDS: FOLIC ACID PO SCH (19:54)
[2015-06-15] MEDS: OMEGA FISH OIL PO SCH (19:54)
[2015-06-15] MEDS: MAGNESIUM OXIDE PO SCH (19:54)
[2015-06-15] MEDS: CALCIUM CARBONATE PO SCH (19:54)
[2015-06-15] MEDS: CALCIUM PO SCH (19:54)
[2015-06-15] MEDS: ZINC GLUCONATE PO SCH (19:54)
[2015-06-15] MEDS: MULTIVITAMINS WITH IRON PO SCH (19:54)
[2015-06-16] MEDS: Levothyroxine 75 MCG Tab PO SCH (06:40)
[2015-06-16] MEDS: DABIGATRAN 150 MG PO SCH ×2 (08:45→19:40)
[2015-06-16] MEDS: UBIDECARENONE 100 MG PO SCH ×2 (08:45→19:41)
[2015-06-16] MEDS: METOPROLOL TARTRATE 12.5 MG PO SCH (08:46)
[2015-06-16] MEDS: CHOLECALCIFEROL 5000 UNIT PO SCH (08:46)
[2015-06-16] MEDS: [UNRECOGNIZED DRUG - OTHER] PO SCH (19:40)
[2015-06-16] MEDS: CALCIUM PO SCH (19:40)
[2015-06-16] MEDS: OMEGA FISH OIL PO SCH (19:40)
[2015-06-16] MEDS: FOLIC ACID PO SCH (19:40)
[2015-06-16] MEDS: MULTIVITAMINS WITH IRON PO SCH (19:40)
[2015-06-16] MEDS: ZINC GLUCONATE PO SCH (19:41)
[2015-06-16] MEDS: MAGNESIUM OXIDE PO SCH (19:41)
[2015-06-16] MEDS: CALCIUM CARBONATE PO SCH (19:41)
[2015-06-17] MEDS: CHOLECALCIFEROL 5000 UNIT PO SCH (09:10)
[2015-06-17] MEDS: UBIDECARENONE 100 MG PO SCH ×2 (09:10→19:56)
[2015-06-17] MEDS: DABIGATRAN 150 MG PO SCH ×2 (09:10→19:56)
[2015-06-17] MEDS: METOPROLOL TARTRATE 12.5 MG PO SCH (09:10)
[2015-06-17] MEDS: ZINC GLUCONATE PO SCH (19:55)
[2015-06-17] MEDS: MAGNESIUM OXIDE PO SCH (19:55)
[2015-06-17] MEDS: CALCIUM CARBONATE PO SCH (19:55)
[2015-06-17] MEDS: OMEGA FISH OIL PO SCH (19:56)
[2015-06-17] MEDS: CALCIUM PO SCH (19:56)
[2015-06-17] MEDS: MULTIVITAMINS WITH IRON PO SCH (19:56)
[2015-06-17] MEDS: FOLIC ACID PO SCH (19:56)
[2015-06-17] MEDS: [UNRECOGNIZED DRUG - OTHER] PO SCH (19:56)
[2015-06-18] MEDS: Levothyroxine 75 MCG Tab PO SCH (06:42)
[2015-06-18] MEDS: UBIDECARENONE 100 MG PO SCH ×2 (09:13→20:40)
[2015-06-18] MEDS: CHOLECALCIFEROL 5000 UNIT PO SCH (09:14)
[2015-06-18] MEDS: DABIGATRAN 150 MG PO SCH ×2 (09:14→20:39)
[2015-06-18] MEDS: METOPROLOL TARTRATE 12.5 MG PO SCH (09:15)
[2015-06-18] MEDS: CALCIUM CARBONATE PO SCH (20:40)
[2015-06-18] MEDS: MAGNESIUM OXIDE PO SCH (20:40)
[2015-06-18] MEDS: CALCIUM PO SCH (20:40)
[2015-06-18] MEDS: [UNRECOGNIZED DRUG - OTHER] PO SCH (20:40)
[2015-06-18] MEDS: ZINC GLUCONATE PO SCH (20:40)
[2015-06-18] MEDS: MULTIVITAMINS WITH IRON PO SCH (20:40)
[2015-06-18] MEDS: OMEGA FISH OIL PO SCH (20:40)
[2015-06-18] MEDS: FOLIC ACID PO SCH (20:40)
[2015-06-19] MEDS: Levothyroxine 75 MCG Tab PO SCH (06:15)
[2015-06-19] MEDS: UBIDECARENONE 100 MG PO SCH ×2 (08:46→20:16)
[2015-06-19] MEDS: METOPROLOL TARTRATE 12.5 MG PO SCH (08:47)
[2015-06-19] MEDS: CHOLECALCIFEROL 5000 UNIT PO SCH (08:47)
[2015-06-19] MEDS: DABIGATRAN 150 MG PO SCH ×2 (08:48→20:16)
[2015-06-19] MEDS: ZINC GLUCONATE PO SCH (20:16)
[2015-06-19] MEDS: OMEGA FISH OIL PO SCH (20:16)
[2015-06-19] MEDS: CALCIUM PO SCH (20:16)
[2015-06-19] MEDS: CALCIUM CARBONATE PO SCH (20:16)
[2015-06-19] MEDS: MAGNESIUM OXIDE PO SCH (20:16)
[2015-06-19] MEDS: FOLIC ACID PO SCH (20:16)
[2015-06-19] MEDS: [UNRECOGNIZED DRUG - OTHER] PO SCH (20:16)
[2015-06-19] MEDS: MULTIVITAMINS WITH IRON PO SCH (20:16)
[2015-06-20] MEDS: Levothyroxine 75 MCG Tab PO SCH (06:06)
[2015-06-20] MEDS: CHOLECALCIFEROL 5000 UNIT PO SCH (08:33)
[2015-06-20] MEDS: DABIGATRAN 150 MG PO SCH ×2 (08:33→19:59)
[2015-06-20] MEDS: METOPROLOL TARTRATE 12.5 MG PO SCH (08:33)
[2015-06-20] MEDS: UBIDECARENONE 100 MG PO SCH ×2 (08:34→19:59)
[2015-06-20] MEDS: MULTIVITAMINS WITH IRON PO SCH (19:59)
[2015-06-20] MEDS: FOLIC ACID PO SCH (19:59)
[2015-06-20] MEDS: CALCIUM CARBONATE PO SCH (19:59)
[2015-06-20] MEDS: CALCIUM PO SCH (19:59)
[2015-06-20] MEDS: ZINC GLUCONATE PO SCH (19:59)
[2015-06-20] MEDS: OMEGA FISH OIL PO SCH (19:59)
[2015-06-20] MEDS: [UNRECOGNIZED DRUG - OTHER] PO SCH (19:59)
[2015-06-20] MEDS: MAGNESIUM OXIDE PO SCH (19:59)
[2015-06-21] MEDS: Levothyroxine 75 MCG Tab PO SCH (06:23)
[2015-06-21] MEDS: DABIGATRAN 150 MG PO SCH ×2 (09:35→19:31)
[2015-06-21] MEDS: CHOLECALCIFEROL 5000 UNIT PO SCH (09:35)
[2015-06-21] MEDS: UBIDECARENONE 100 MG PO SCH ×2 (09:36→19:32)
[2015-06-21] MEDS: METOPROLOL TARTRATE 12.5 MG PO SCH (09:36)
[2015-06-21] MEDS: CALCIUM CARBONATE PO SCH (19:31)
[2015-06-21] MEDS: ZINC GLUCONATE PO SCH (19:31)
[2015-06-21] MEDS: MAGNESIUM OXIDE PO SCH (19:31)
[2015-06-21] MEDS: FOLIC ACID PO SCH (19:32)
[2015-06-21] MEDS: MULTIVITAMINS WITH IRON PO SCH (19:32)
[2015-06-21] MEDS: CALCIUM PO SCH (19:32)
[2015-06-21] MEDS: OMEGA FISH OIL PO SCH (19:32)
[2015-06-21] MEDS: [UNRECOGNIZED DRUG - OTHER] PO SCH (19:32)
[2015-06-22] MEDS: Levothyroxine 75 MCG Tab PO SCH (06:40)
[2015-06-22] MEDS: UBIDECARENONE 100 MG PO SCH ×2 (08:48→19:40)
[2015-06-22] MEDS: METOPROLOL TARTRATE 12.5 MG PO SCH (08:49)
[2015-06-22] MEDS: CHOLECALCIFEROL 5000 UNIT PO SCH (08:49)
[2015-06-22] MEDS: DABIGATRAN 150 MG PO SCH ×2 (08:52→19:39)
[2015-06-22] MEDS: MAGNESIUM OXIDE PO SCH (19:39)
[2015-06-22] MEDS: ZINC GLUCONATE PO SCH (19:39)
[2015-06-22] MEDS: CALCIUM CARBONATE PO SCH (19:39)
[2015-06-22] MEDS: OMEGA FISH OIL PO SCH (19:39)
[2015-06-22] MEDS: FOLIC ACID PO SCH (19:40)
[2015-06-22] MEDS: CALCIUM PO SCH (19:40)
[2015-06-22] MEDS: MULTIVITAMINS WITH IRON PO SCH (19:40)
[2015-06-22] MEDS: [UNRECOGNIZED DRUG - OTHER] PO SCH (19:40)
[2015-06-23] MEDS: Levothyroxine 75 MCG Tab PO SCH (06:47)
[2015-06-23] MEDS: UBIDECARENONE 100 MG PO SCH ×2 (08:08→19:31)
[2015-06-23] MEDS: CHOLECALCIFEROL 5000 UNIT PO SCH (08:08)
[2015-06-23] MEDS: METOPROLOL TARTRATE 12.5 MG PO SCH (08:09)
[2015-06-23] MEDS: DABIGATRAN 150 MG PO SCH ×2 (08:09→19:30)
[2015-06-23] MEDS: CALCIUM CARBONATE PO SCH (19:29)
[2015-06-23] MEDS: MAGNESIUM OXIDE PO SCH (19:29)
[2015-06-23] MEDS: ZINC GLUCONATE PO SCH (19:29)
[2015-06-23] MEDS: MULTIVITAMINS WITH IRON PO SCH (19:31)
[2015-06-23] MEDS: [UNRECOGNIZED DRUG - OTHER] PO SCH (19:31)
[2015-06-23] MEDS: CALCIUM PO SCH (19:31)
[2015-06-23] MEDS: FOLIC ACID PO SCH (19:31)
[2015-06-23] MEDS: OMEGA FISH OIL PO SCH (19:31)
[2015-06-24] MEDS: METOPROLOL TARTRATE 12.5 MG PO SCH (08:20)
[2015-06-24] MEDS: CHOLECALCIFEROL 5000 UNIT PO SCH (08:21)
[2015-06-24] MEDS: UBIDECARENONE 100 MG PO SCH ×2 (08:22→21:09)
[2015-06-24] MEDS: DABIGATRAN 150 MG PO SCH ×2 (08:22→21:08)
[2015-06-24] MEDS: CALCIUM PO SCH (21:07)
[2015-06-24] MEDS: FOLIC ACID PO SCH (21:07)
[2015-06-24] MEDS: MULTIVITAMINS WITH IRON PO SCH (21:07)
[2015-06-24] MEDS: [UNRECOGNIZED DRUG - OTHER] PO SCH (21:07)
[2015-06-24] MEDS: MAGNESIUM OXIDE PO SCH (21:08)
[2015-06-24] MEDS: CALCIUM CARBONATE PO SCH (21:08)
[2015-06-24] MEDS: ZINC GLUCONATE PO SCH (21:08)
[2015-06-24] MEDS: OMEGA FISH OIL PO SCH (21:09)
[2015-06-25] MEDS: LEVOTHYROXINE 75 MCG PO SCH (06:06)
[2015-06-25] MEDS: CHOLECALCIFEROL 5000 UNIT PO SCH (09:06)
[2015-06-25] MEDS: DABIGATRAN 150 MG PO SCH ×2 (09:07→20:23)
[2015-06-25] MEDS: UBIDECARENONE 100 MG PO SCH ×2 (09:07→20:23)
[2015-06-25] MEDS: MULTIVITAMINS WITH IRON PO SCH (20:23)
[2015-06-25] MEDS: FOLIC ACID PO SCH (20:23)
[2015-06-25] MEDS: [UNRECOGNIZED DRUG - OTHER] PO SCH (20:23)
[2015-06-25] MEDS: OMEGA FISH OIL PO SCH (20:23)
[2015-06-25] MEDS: ZINC GLUCONATE PO SCH (20:23)
[2015-06-25] MEDS: CALCIUM PO SCH (20:23)
[2015-06-25] MEDS: CALCIUM CARBONATE PO SCH (20:23)
[2015-06-25] MEDS: MAGNESIUM OXIDE PO SCH (20:23)
[2015-06-26] MEDS: LEVOTHYROXINE 75 MCG PO SCH (06:25)
[2015-06-26] MEDS: UBIDECARENONE 100 MG PO SCH ×2 (07:33→20:07)
[2015-06-26] MEDS: CHOLECALCIFEROL 5000 UNIT PO SCH (07:34)
[2015-06-26] MEDS: DABIGATRAN 150 MG PO SCH ×2 (07:34→20:06)
[2015-06-26] MEDS: Acetaminophen 500 MG Tab PO PRN (11:23)
[2015-06-26] MEDS: CALCIUM CARBONATE PO SCH (20:06)
[2015-06-26] MEDS: MAGNESIUM OXIDE PO SCH (20:06)
[2015-06-26] MEDS: ZINC GLUCONATE PO SCH (20:06)
[2015-06-26] MEDS: FOLIC ACID PO SCH (20:07)
[2015-06-26] MEDS: CALCIUM PO SCH (20:07)
[2015-06-26] MEDS: [UNRECOGNIZED DRUG - OTHER] PO SCH (20:07)
[2015-06-26] MEDS: OMEGA FISH OIL PO SCH (20:07)
[2015-06-26] MEDS: MULTIVITAMINS WITH IRON PO SCH (20:07)
[2015-06-27] MEDS: LEVOTHYROXINE 75 MCG PO SCH (06:36)
[2015-06-27] MEDS: UBIDECARENONE 100 MG PO SCH ×2 (09:24→19:45)
[2015-06-27] MEDS: CHOLECALCIFEROL 5000 UNIT PO SCH (09:24)
[2015-06-27] MEDS: DABIGATRAN 150 MG PO SCH ×2 (09:24→19:43)
[2015-06-27] MEDS: CALCIUM CARBONATE PO SCH (19:43)
[2015-06-27] MEDS: ZINC GLUCONATE PO SCH (19:43)
[2015-06-27] MEDS: MAGNESIUM OXIDE PO SCH (19:43)
[2015-06-27] MEDS: OMEGA FISH OIL PO SCH (19:44)
[2015-06-27] MEDS: CALCIUM PO SCH (19:44)
[2015-06-27] MEDS: [UNRECOGNIZED DRUG - OTHER] PO SCH (19:44)
[2015-06-27] MEDS: FOLIC ACID PO SCH (19:44)
[2015-06-27] MEDS: MULTIVITAMINS WITH IRON PO SCH (19:44)
[2015-06-28] MEDS: LEVOTHYROXINE 75 MCG PO SCH (06:32)
[2015-06-28] MEDS: DABIGATRAN 150 MG PO SCH ×2 (09:32→20:35)
[2015-06-28] MEDS: CHOLECALCIFEROL 5000 UNIT PO SCH (09:32)
[2015-06-28] MEDS: UBIDECARENONE 100 MG PO SCH ×2 (09:32→20:34)
[2015-06-28] MEDS: Acetaminophen 500 MG Tab PO PRN (12:39)
[2015-06-28] MEDS: MAGNESIUM OXIDE PO SCH (20:35)
[2015-06-28] MEDS: CALCIUM PO SCH (20:35)
[2015-06-28] MEDS: OMEGA FISH OIL PO SCH (20:35)
[2015-06-28] MEDS: ZINC GLUCONATE PO SCH (20:35)
[2015-06-28] MEDS: FOLIC ACID PO SCH (20:35)
[2015-06-28] MEDS: MULTIVITAMINS WITH IRON PO SCH (20:35)
[2015-06-28] MEDS: [UNRECOGNIZED DRUG - OTHER] PO SCH (20:35)
[2015-06-28] MEDS: CALCIUM CARBONATE PO SCH (20:35)
[2015-06-29] MEDS: LEVOTHYROXINE 75 MCG PO SCH (06:37)
[2015-06-29] MEDS: DABIGATRAN 150 MG PO SCH ×2 (08:43→21:20)
[2015-06-29] MEDS: CHOLECALCIFEROL 5000 UNIT PO SCH (08:43)
[2015-06-29] MEDS: UBIDECARENONE 100 MG PO SCH ×2 (08:43→21:20)
[2015-06-29] MEDS: MULTIVITAMINS WITH IRON PO SCH (21:19)
[2015-06-29] MEDS: [UNRECOGNIZED DRUG - OTHER] PO SCH (21:19)
[2015-06-29] MEDS: FOLIC ACID PO SCH (21:19)
[2015-06-29] MEDS: CALCIUM PO SCH (21:19)
[2015-06-29] MEDS: CALCIUM CARBONATE PO SCH (21:20)
[2015-06-29] MEDS: MAGNESIUM OXIDE PO SCH (21:20)
[2015-06-29] MEDS: OMEGA FISH OIL PO SCH (21:20)
[2015-06-29] MEDS: ZINC GLUCONATE PO SCH (21:20)
[2015-06-30] MEDS: DABIGATRAN 150 MG PO SCH ×2 (09:25→19:51)
[2015-06-30] MEDS: CHOLECALCIFEROL 5000 UNIT PO SCH (09:25)
[2015-06-30] MEDS: UBIDECARENONE 100 MG PO SCH ×2 (09:26→19:51)
[2015-06-30] MEDS: MULTIVITAMINS WITH IRON PO SCH (19:51)
[2015-06-30] MEDS: ZINC GLUCONATE PO SCH (19:51)
[2015-06-30] MEDS: CALCIUM PO SCH (19:51)
[2015-06-30] MEDS: [UNRECOGNIZED DRUG - OTHER] PO SCH (19:51)
[2015-06-30] MEDS: CALCIUM CARBONATE PO SCH (19:51)
[2015-06-30] MEDS: FOLIC ACID PO SCH (19:51)
[2015-06-30] MEDS: MAGNESIUM OXIDE PO SCH (19:51)
[2015-06-30] MEDS: OMEGA FISH OIL PO SCH (19:52)
[2015-07-01] MEDS: LEVOTHYROXINE 75 MCG PO SCH (06:31)
[2015-07-01] MEDS: DABIGATRAN 150 MG PO SCH ×2 (08:51→18:29)
[2015-07-01] MEDS: UBIDECARENONE 100 MG PO SCH ×2 (08:52→18:30)
[2015-07-01] MEDS: CHOLECALCIFEROL 5000 UNIT PO SCH (08:52)
[2015-07-01] MEDS: FOLIC ACID PO SCH (18:30)
[2015-07-01] MEDS: CALCIUM CARBONATE PO SCH (18:30)
[2015-07-01] MEDS: CALCIUM PO SCH (18:30)
[2015-07-01] MEDS: MAGNESIUM OXIDE PO SCH (18:30)
[2015-07-01] MEDS: MULTIVITAMINS WITH IRON PO SCH (18:30)
[2015-07-01] MEDS: ZINC GLUCONATE PO SCH (18:30)
[2015-07-01] MEDS: [UNRECOGNIZED DRUG - OTHER] PO SCH (18:30)
[2015-07-01] MEDS: OMEGA FISH OIL PO SCH (18:30)
[2015-07-02] MEDS: LEVOTHYROXINE 75 MCG PO SCH (06:33)
[2015-07-02] MEDS: CHOLECALCIFEROL 5000 UNIT PO SCH (08:50)
[2015-07-02] MEDS: DABIGATRAN 150 MG PO SCH ×2 (08:51→21:32)
[2015-07-02] MEDS: UBIDECARENONE 100 MG PO SCH ×2 (08:51→21:33)
[2015-07-02] MEDS: [UNRECOGNIZED DRUG - OTHER] PO SCH (21:33)
[2015-07-02] MEDS: MULTIVITAMINS WITH IRON PO SCH (21:33)
[2015-07-02] MEDS: FOLIC ACID PO SCH (21:33)
[2015-07-02] MEDS: OMEGA FISH OIL PO SCH (21:33)
[2015-07-02] MEDS: CALCIUM PO SCH (21:33)
[2015-07-02] MEDS: MAGNESIUM OXIDE PO SCH (21:34)
[2015-07-02] MEDS: CALCIUM CARBONATE PO SCH (21:34)
[2015-07-02] MEDS: ZINC GLUCONATE PO SCH (21:34)
[2015-07-03] MEDS: LEVOTHYROXINE 75 MCG PO SCH (06:26)
[2015-07-03] MEDS: DABIGATRAN 150 MG PO SCH ×2 (09:17→21:52)
[2015-07-03] MEDS: UBIDECARENONE 100 MG PO SCH ×2 (09:17→21:53)
[2015-07-03] MEDS: CHOLECALCIFEROL 5000 UNIT PO SCH (09:17)
[2015-07-03] MEDS: Acetaminophen 500 MG Tab PO PRN (10:10)
[2015-07-03] MEDS: CALCIUM PO SCH (21:52)
[2015-07-03] MEDS: MULTIVITAMINS WITH IRON PO SCH (21:52)
[2015-07-03] MEDS: [UNRECOGNIZED DRUG - OTHER] PO SCH (21:52)
[2015-07-03] MEDS: FOLIC ACID PO SCH (21:52)
[2015-07-03] MEDS: OMEGA FISH OIL PO SCH (21:52)
[2015-07-03] MEDS: MAGNESIUM OXIDE PO SCH (21:53)
[2015-07-03] MEDS: CALCIUM CARBONATE PO SCH (21:53)
[2015-07-03] MEDS: ZINC GLUCONATE PO SCH (21:53)
[2015-07-04] MEDS: LEVOTHYROXINE 75 MCG PO SCH (06:38)
[2015-07-04] MEDS: DABIGATRAN 150 MG PO SCH ×2 (09:50→21:04)
[2015-07-04] MEDS: CHOLECALCIFEROL 5000 UNIT PO SCH (09:50)
[2015-07-04] MEDS: UBIDECARENONE 100 MG PO SCH ×2 (09:51→21:04)
[2015-07-04] MEDS: Acetaminophen 500 MG Tab PO PRN (17:34)
[2015-07-04] MEDS: CALCIUM CARBONATE PO SCH (21:04)
[2015-07-04] MEDS: MAGNESIUM OXIDE PO SCH (21:04)
[2015-07-04] MEDS: OMEGA FISH OIL PO SCH (21:04)
[2015-07-04] MEDS: [UNRECOGNIZED DRUG - OTHER] PO SCH (21:04)
[2015-07-04] MEDS: CALCIUM PO SCH (21:04)
[2015-07-04] MEDS: MULTIVITAMINS WITH IRON PO SCH (21:04)
[2015-07-04] MEDS: ZINC GLUCONATE PO SCH (21:04)
[2015-07-04] MEDS: FOLIC ACID PO SCH (21:04)
[2015-07-05] MEDS: LEVOTHYROXINE 75 MCG PO SCH (06:03)
[2015-07-05] MEDS: UBIDECARENONE 100 MG PO SCH ×2 (08:49→21:52)
[2015-07-05] MEDS: CHOLECALCIFEROL 5000 UNIT PO SCH (08:49)
[2015-07-05] MEDS: DABIGATRAN 150 MG PO SCH ×2 (08:49→21:51)
[2015-07-05] MEDS: Acetaminophen 500 MG Tab PO PRN (10:15)
[2015-07-05] MEDS: MAGNESIUM OXIDE PO SCH (21:51)
[2015-07-05] MEDS: ZINC GLUCONATE PO SCH (21:51)
[2015-07-05] MEDS: OMEGA FISH OIL PO SCH (21:51)
[2015-07-05] MEDS: CALCIUM CARBONATE PO SCH (21:51)
[2015-07-05] MEDS: FOLIC ACID PO SCH (21:52)
[2015-07-05] MEDS: MULTIVITAMINS WITH IRON PO SCH (21:52)
[2015-07-05] MEDS: [UNRECOGNIZED DRUG - OTHER] PO SCH (21:52)
[2015-07-05] MEDS: CALCIUM PO SCH (21:52)
[2015-07-06] MEDS: LEVOTHYROXINE 75 MCG PO SCH (05:56)
[2015-07-06] MEDS: UBIDECARENONE 100 MG PO SCH ×2 (08:32→20:18)
[2015-07-06] MEDS: DABIGATRAN 150 MG PO SCH ×2 (08:32→20:18)
[2015-07-06] MEDS: CHOLECALCIFEROL 5000 UNIT PO SCH (08:32)
[2015-07-06] MEDS: [UNRECOGNIZED DRUG - OTHER] PO SCH (20:18)
[2015-07-06] MEDS: OMEGA FISH OIL PO SCH (20:18)
[2015-07-06] MEDS: CALCIUM CARBONATE PO SCH (20:18)
[2015-07-06] MEDS: ZINC GLUCONATE PO SCH (20:18)
[2015-07-06] MEDS: MULTIVITAMINS WITH IRON PO SCH (20:18)
[2015-07-06] MEDS: CALCIUM PO SCH (20:18)
[2015-07-06] MEDS: MAGNESIUM OXIDE PO SCH (20:18)
[2015-07-06] MEDS: FOLIC ACID PO SCH (20:18)
[2015-07-07] MEDS: DABIGATRAN 150 MG PO SCH ×2 (10:13→20:27)
[2015-07-07] MEDS: UBIDECARENONE 100 MG PO SCH ×2 (10:13→20:28)
[2015-07-07] MEDS: CHOLECALCIFEROL 5000 UNIT PO SCH (10:13)
[2015-07-07] MEDS: CALCIUM CARBONATE PO SCH (20:26)
[2015-07-07] MEDS: MAGNESIUM OXIDE PO SCH (20:26)
[2015-07-07] MEDS: ZINC GLUCONATE PO SCH (20:26)
[2015-07-07] MEDS: OMEGA FISH OIL PO SCH (20:27)
[2015-07-07] MEDS: [UNRECOGNIZED DRUG - OTHER] PO SCH (20:28)
[2015-07-07] MEDS: MULTIVITAMINS WITH IRON PO SCH (20:28)
[2015-07-07] MEDS: FOLIC ACID PO SCH (20:28)
[2015-07-07] MEDS: CALCIUM PO SCH (20:28)
[2015-07-08] MEDS: LEVOTHYROXINE 75 MCG PO SCH (06:19)
[2015-07-08] MEDS: CHOLECALCIFEROL 5000 UNIT PO SCH (08:29)
[2015-07-08] MEDS: UBIDECARENONE 100 MG PO SCH ×2 (08:29→22:12)
[2015-07-08] MEDS: DABIGATRAN 150 MG PO SCH ×2 (08:29→22:12)
[2015-07-08] MEDS: MAGNESIUM OXIDE PO SCH (22:11)
[2015-07-08] MEDS: ZINC GLUCONATE PO SCH (22:11)
[2015-07-08] MEDS: CALCIUM CARBONATE PO SCH (22:11)
[2015-07-08] MEDS: OMEGA FISH OIL PO SCH (22:12)
[2015-07-08] MEDS: CALCIUM PO SCH (22:12)
[2015-07-08] MEDS: [UNRECOGNIZED DRUG - OTHER] PO SCH (22:12)
[2015-07-08] MEDS: FOLIC ACID PO SCH (22:12)
[2015-07-08] MEDS: MULTIVITAMINS WITH IRON PO SCH (22:12)
[2015-07-09] MEDS: LEVOTHYROXINE 75 MCG PO SCH (06:10)
[2015-07-09] MEDS: CHOLECALCIFEROL 5000 UNIT PO SCH (09:05)
[2015-07-09] MEDS: DABIGATRAN 150 MG PO SCH ×2 (09:05→20:07)
[2015-07-09] MEDS: UBIDECARENONE 100 MG PO SCH ×2 (09:05→20:07)
[2015-07-09] MEDS: Acetaminophen 500 MG Tab PO PRN (10:34)
[2015-07-09] MEDS: [UNRECOGNIZED DRUG - OTHER] PO SCH (20:07)
[2015-07-09] MEDS: MAGNESIUM OXIDE PO SCH (20:07)
[2015-07-09] MEDS: CALCIUM PO SCH (20:07)
[2015-07-09] MEDS: ZINC GLUCONATE PO SCH (20:07)
[2015-07-09] MEDS: FOLIC ACID PO SCH (20:07)
[2015-07-09] MEDS: MULTIVITAMINS WITH IRON PO SCH (20:07)
[2015-07-09] MEDS: CALCIUM CARBONATE PO SCH (20:07)
[2015-07-09] MEDS: OMEGA FISH OIL PO SCH (20:08)
[2015-07-10] MEDS: LEVOTHYROXINE 75 MCG PO SCH (06:05)
[2015-07-10] MEDS: UBIDECARENONE 100 MG PO SCH ×2 (08:45→21:14)
[2015-07-10] MEDS: CHOLECALCIFEROL 5000 UNIT PO SCH (08:46)
[2015-07-10] MEDS: DABIGATRAN 150 MG PO SCH ×2 (08:46→21:14)
--- NOTE | 2015-07-10 11:54 | PN ---
Progress Note for EMILY SHEETS Date: 07/10/2015 Room #: VM.207 SUBJECTIVE: An 85-year-old seen today for 30-day reassessment. The patient is on swing bed due to impaired mobility. She states yesterday she was having more problems with her knees. She does use a walker to get around. She does use assistance to get her dress on and for bathing. She has decided she will probably stay in [place] on swing bed instead of going to a [facility] in [place]. Otherwise, she is not having any chest pain or trouble breathing. OBJECTIVE: Vital Signs: Objectively, her temperature has been 97.5, pulse 72, blood pressure 129/78, respiratory rate 16, O2 is 96 on room air. General: She is in no acute distress. Heart: Irregularly irregular. Lungs: Lung sounds are clear to auscultation bilaterally without crackles or wheezes. Abdomen: Not examined. Extremities: Warm and dry. No edema. Mental Status: Alert and orientated x3. ASSESSMENT: 1. Hypothyroidism, slightly overtreated. We are going to check her TSH this month. 2. Atrial fibrillation with history of transient ischemic attack, on anticoagulation. 3. Chronic leg weakness. 4. Hypertension. 5. Osteoarthritis. PLAN: The patient will continue swing bed cares for assistance in ADLs. I will check a thyroid level this month. MKA: 07/10/2015 11:30:29 MODL: 07/10/2015 11:45:22 /[id number]
[2015-07-10] MEDS: Acetaminophen 500 MG Tab PO PRN (12:49)
[2015-07-10] MEDS: OMEGA FISH OIL PO SCH (21:14)
[2015-07-10] MEDS: [UNRECOGNIZED DRUG - OTHER] PO SCH (21:14)
[2015-07-10] MEDS: MAGNESIUM OXIDE PO SCH (21:14)
[2015-07-10] MEDS: CALCIUM PO SCH (21:14)
[2015-07-10] MEDS: FOLIC ACID PO SCH (21:14)
[2015-07-10] MEDS: CALCIUM CARBONATE PO SCH (21:14)
[2015-07-10] MEDS: MULTIVITAMINS WITH IRON PO SCH (21:14)
[2015-07-10] MEDS: ZINC GLUCONATE PO SCH (21:14)
[2015-07-11] MEDS: LEVOTHYROXINE 75 MCG PO SCH (06:06)
[2015-07-11] MEDS: CHOLECALCIFEROL 5000 UNIT PO SCH (09:26)
[2015-07-11] MEDS: DABIGATRAN 150 MG PO SCH ×2 (09:26→20:44)
[2015-07-11] MEDS: UBIDECARENONE 100 MG PO SCH ×2 (09:26→20:44)
[2015-07-11] MEDS: FOLIC ACID PO SCH (20:44)
[2015-07-11] MEDS: ZINC GLUCONATE PO SCH (20:44)
[2015-07-11] MEDS: [UNRECOGNIZED DRUG - OTHER] PO SCH (20:44)
[2015-07-11] MEDS: OMEGA FISH OIL PO SCH (20:44)
[2015-07-11] MEDS: CALCIUM PO SCH (20:44)
[2015-07-11] MEDS: MULTIVITAMINS WITH IRON PO SCH (20:44)
[2015-07-11] MEDS: MAGNESIUM OXIDE PO SCH (20:44)
[2015-07-11] MEDS: CALCIUM CARBONATE PO SCH (20:44)
[2015-07-12] MEDS: LEVOTHYROXINE 75 MCG PO SCH (06:23)
[2015-07-12] MEDS: DABIGATRAN 150 MG PO SCH ×2 (09:43→19:39)
[2015-07-12] MEDS: UBIDECARENONE 100 MG PO SCH ×2 (09:43→19:40)
[2015-07-12] MEDS: CHOLECALCIFEROL 5000 UNIT PO SCH (09:43)
[2015-07-12] MEDS: ZINC GLUCONATE PO SCH (19:39)
[2015-07-12] MEDS: MAGNESIUM OXIDE PO SCH (19:39)
[2015-07-12] MEDS: CALCIUM CARBONATE PO SCH (19:39)
[2015-07-12] MEDS: OMEGA FISH OIL PO SCH (19:39)
[2015-07-12] MEDS: MULTIVITAMINS WITH IRON PO SCH (19:40)
[2015-07-12] MEDS: [UNRECOGNIZED DRUG - OTHER] PO SCH (19:40)
[2015-07-12] MEDS: FOLIC ACID PO SCH (19:40)
[2015-07-12] MEDS: CALCIUM PO SCH (19:40)
[2015-07-13] MEDS: LEVOTHYROXINE 75 MCG PO SCH (06:40)
[2015-07-13] MEDS: UBIDECARENONE 100 MG PO SCH ×2 (08:57→20:28)
[2015-07-13] MEDS: DABIGATRAN 150 MG PO SCH ×2 (08:58→20:27)
[2015-07-13] MEDS: CHOLECALCIFEROL 5000 UNIT PO SCH (08:58)
[2015-07-13] MEDS: Acetaminophen 500 MG Tab PO PRN ×2 (09:11→13:48)
[2015-07-13] MEDS: ZINC GLUCONATE PO SCH (20:27)
[2015-07-13] MEDS: CALCIUM CARBONATE PO SCH (20:27)
[2015-07-13] MEDS: MAGNESIUM OXIDE PO SCH (20:27)
[2015-07-13] MEDS: [UNRECOGNIZED DRUG - OTHER] PO SCH (20:28)
[2015-07-13] MEDS: OMEGA FISH OIL PO SCH (20:28)
[2015-07-13] MEDS: FOLIC ACID PO SCH (20:28)
[2015-07-13] MEDS: CALCIUM PO SCH (20:28)
[2015-07-13] MEDS: MULTIVITAMINS WITH IRON PO SCH (20:28)
[2015-07-14] MEDS: UBIDECARENONE 100 MG PO SCH ×2 (08:32→19:27)
[2015-07-14] MEDS: CHOLECALCIFEROL 5000 UNIT PO SCH (08:33)
[2015-07-14] MEDS: DABIGATRAN 150 MG PO SCH ×2 (08:34→19:26)
[2015-07-14] MEDS: MAGNESIUM OXIDE PO SCH (19:26)
[2015-07-14] MEDS: ZINC GLUCONATE PO SCH (19:26)
[2015-07-14] MEDS: CALCIUM CARBONATE PO SCH (19:26)
[2015-07-14] MEDS: FOLIC ACID PO SCH (19:27)
[2015-07-14] MEDS: MULTIVITAMINS WITH IRON PO SCH (19:27)
[2015-07-14] MEDS: OMEGA FISH OIL PO SCH (19:27)
[2015-07-14] MEDS: CALCIUM PO SCH (19:27)
[2015-07-14] MEDS: [UNRECOGNIZED DRUG - OTHER] PO SCH (19:27)
[2015-07-15] MEDS: LEVOTHYROXINE 75 MCG PO SCH (06:01)
[2015-07-15] MEDS: UBIDECARENONE 100 MG PO SCH ×2 (08:52→19:56)
[2015-07-15] MEDS: CHOLECALCIFEROL 5000 UNIT PO SCH (08:52)
[2015-07-15] MEDS: DABIGATRAN 150 MG PO SCH ×2 (08:52→19:56)
[2015-07-15] MEDS: Acetaminophen 500 MG Tab PO PRN (08:53)
[2015-07-15] MEDS: CALCIUM CARBONATE PO SCH (19:55)
[2015-07-15] MEDS: ZINC GLUCONATE PO SCH (19:55)
[2015-07-15] MEDS: MAGNESIUM OXIDE PO SCH (19:55)
[2015-07-15] MEDS: MULTIVITAMINS WITH IRON PO SCH (19:56)
[2015-07-15] MEDS: [UNRECOGNIZED DRUG - OTHER] PO SCH (19:56)
[2015-07-15] MEDS: OMEGA FISH OIL PO SCH (19:56)
[2015-07-15] MEDS: FOLIC ACID PO SCH (19:56)
[2015-07-15] MEDS: CALCIUM PO SCH (19:56)
[2015-07-16] MEDS: LEVOTHYROXINE 75 MCG PO SCH (05:42)
[2015-07-16] MEDS: CHOLECALCIFEROL 5000 UNIT PO SCH (08:59)
[2015-07-16] MEDS: UBIDECARENONE 100 MG PO SCH ×2 (08:59→19:38)
[2015-07-16] MEDS: DABIGATRAN 150 MG PO SCH ×2 (09:00→19:36)
[2015-07-16] MEDS: MULTIVITAMINS WITH IRON PO SCH (19:36)
[2015-07-16] MEDS: FOLIC ACID PO SCH (19:36)
[2015-07-16] MEDS: CALCIUM PO SCH (19:36)
[2015-07-16] MEDS: [UNRECOGNIZED DRUG - OTHER] PO SCH (19:36)
[2015-07-16] MEDS: MAGNESIUM OXIDE PO SCH (19:37)
[2015-07-16] MEDS: CALCIUM CARBONATE PO SCH (19:37)
[2015-07-16] MEDS: ZINC GLUCONATE PO SCH (19:37)
[2015-07-16] MEDS: OMEGA FISH OIL PO SCH (19:37)
[2015-07-17] MEDS: LEVOTHYROXINE 75 MCG PO SCH (05:47)
[2015-07-17] MEDS: CHOLECALCIFEROL 5000 UNIT PO SCH (10:51)
[2015-07-17] MEDS: UBIDECARENONE 100 MG PO SCH ×2 (10:52→21:08)
[2015-07-17] MEDS: DABIGATRAN 150 MG PO SCH ×2 (10:52→21:07)
[2015-07-17] MEDS: Acetaminophen 500 MG Tab PO PRN (11:04)
[2015-07-17] MEDS: MULTIVITAMINS WITH IRON PO SCH (21:08)
[2015-07-17] MEDS: ZINC GLUCONATE PO SCH (21:08)
[2015-07-17] MEDS: CALCIUM CARBONATE PO SCH (21:08)
[2015-07-17] MEDS: MAGNESIUM OXIDE PO SCH (21:08)
[2015-07-17] MEDS: FOLIC ACID PO SCH (21:08)
[2015-07-17] MEDS: OMEGA FISH OIL PO SCH (21:08)
[2015-07-17] MEDS: CALCIUM PO SCH (21:08)
[2015-07-17] MEDS: [UNRECOGNIZED DRUG - OTHER] PO SCH (21:08)
[2015-07-18] MEDS: LEVOTHYROXINE 75 MCG PO SCH (06:06)
[2015-07-18] MEDS: UBIDECARENONE 100 MG PO SCH ×2 (09:23→19:18)
[2015-07-18] MEDS: DABIGATRAN 150 MG PO SCH ×2 (09:23→19:17)
[2015-07-18] MEDS: CHOLECALCIFEROL 5000 UNIT PO SCH (09:23)
[2015-07-18] MEDS: MAGNESIUM OXIDE PO SCH (19:17)
[2015-07-18] MEDS: OMEGA FISH OIL PO SCH (19:17)
[2015-07-18] MEDS: ZINC GLUCONATE PO SCH (19:17)
[2015-07-18] MEDS: CALCIUM CARBONATE PO SCH (19:17)
[2015-07-18] MEDS: CALCIUM PO SCH (19:18)
[2015-07-18] MEDS: [UNRECOGNIZED DRUG - OTHER] PO SCH (19:18)
[2015-07-18] MEDS: FOLIC ACID PO SCH (19:18)
[2015-07-18] MEDS: MULTIVITAMINS WITH IRON PO SCH (19:18)
[2015-07-19] MEDS: LEVOTHYROXINE 75 MCG PO SCH (06:27)
[2015-07-19] MEDS: DABIGATRAN 150 MG PO SCH ×2 (10:04→19:56)
[2015-07-19] MEDS: UBIDECARENONE 100 MG PO SCH ×2 (10:04→19:57)
[2015-07-19] MEDS: CHOLECALCIFEROL 5000 UNIT PO SCH (10:04)
[2015-07-19] MEDS: Acetaminophen 500 MG Tab PO PRN (12:21)
[2015-07-19] MEDS: ZINC GLUCONATE PO SCH (19:56)
[2015-07-19] MEDS: CALCIUM CARBONATE PO SCH (19:56)
[2015-07-19] MEDS: MAGNESIUM OXIDE PO SCH (19:56)
[2015-07-19] MEDS: FOLIC ACID PO SCH (19:57)
[2015-07-19] MEDS: [UNRECOGNIZED DRUG - OTHER] PO SCH (19:57)
[2015-07-19] MEDS: OMEGA FISH OIL PO SCH (19:57)
[2015-07-19] MEDS: MULTIVITAMINS WITH IRON PO SCH (19:57)
[2015-07-19] MEDS: CALCIUM PO SCH (19:57)
[2015-07-20] MEDS: LEVOTHYROXINE 75 MCG PO SCH (06:07)
[2015-07-20] MEDS: DABIGATRAN 150 MG PO SCH ×2 (10:04→20:56)
[2015-07-20] MEDS: UBIDECARENONE 100 MG PO SCH ×2 (10:05→20:57)
[2015-07-20] MEDS: CHOLECALCIFEROL 5000 UNIT PO SCH (10:05)
[2015-07-20] MEDS: MAGNESIUM OXIDE PO SCH (20:57)
[2015-07-20] MEDS: OMEGA FISH OIL PO SCH (20:57)
[2015-07-20] MEDS: [UNRECOGNIZED DRUG - OTHER] PO SCH (20:57)
[2015-07-20] MEDS: MULTIVITAMINS WITH IRON PO SCH (20:57)
[2015-07-20] MEDS: FOLIC ACID PO SCH (20:57)
[2015-07-20] MEDS: CALCIUM PO SCH (20:57)
[2015-07-20] MEDS: ZINC GLUCONATE PO SCH (20:57)
[2015-07-20] MEDS: CALCIUM CARBONATE PO SCH (20:57)
[2015-07-21] MEDS: DABIGATRAN 150 MG PO SCH ×2 (09:20→20:46)
[2015-07-21] MEDS: UBIDECARENONE 100 MG PO SCH ×2 (09:20→20:46)
[2015-07-21] MEDS: CHOLECALCIFEROL 5000 UNIT PO SCH (09:21)
[2015-07-21] MEDS: CALCIUM CARBONATE PO SCH (20:46)
[2015-07-21] MEDS: MAGNESIUM OXIDE PO SCH (20:46)
[2015-07-21] MEDS: FOLIC ACID PO SCH (20:46)
[2015-07-21] MEDS: MULTIVITAMINS WITH IRON PO SCH (20:46)
[2015-07-21] MEDS: [UNRECOGNIZED DRUG - OTHER] PO SCH (20:46)
[2015-07-21] MEDS: ZINC GLUCONATE PO SCH (20:46)
[2015-07-21] MEDS: OMEGA FISH OIL PO SCH (20:46)
[2015-07-21] MEDS: CALCIUM PO SCH (20:46)
[2015-07-22] MEDS: LEVOTHYROXINE 75 MCG PO SCH (06:00)
[2015-07-22] MEDS: CHOLECALCIFEROL 5000 UNIT PO SCH (10:30)
[2015-07-22] MEDS: UBIDECARENONE 100 MG PO SCH ×2 (10:31→21:08)
[2015-07-22] MEDS: DABIGATRAN 150 MG PO SCH ×2 (10:31→21:08)
[2015-07-22] MEDS: [UNRECOGNIZED DRUG - OTHER] PO SCH (21:08)
[2015-07-22] MEDS: ZINC GLUCONATE PO SCH (21:08)
[2015-07-22] MEDS: OMEGA FISH OIL PO SCH (21:08)
[2015-07-22] MEDS: MULTIVITAMINS WITH IRON PO SCH (21:08)
[2015-07-22] MEDS: CALCIUM PO SCH (21:08)
[2015-07-22] MEDS: FOLIC ACID PO SCH (21:08)
[2015-07-22] MEDS: MAGNESIUM OXIDE PO SCH (21:08)
[2015-07-22] MEDS: CALCIUM CARBONATE PO SCH (21:08)
[2015-07-23] MEDS: LEVOTHYROXINE 75 MCG PO SCH (05:52)
[2015-07-23] MEDS: UBIDECARENONE 100 MG PO SCH ×2 (09:17→20:21)
[2015-07-23] MEDS: DABIGATRAN 150 MG PO SCH ×2 (09:17→20:21)
[2015-07-23] MEDS: CHOLECALCIFEROL 5000 UNIT PO SCH (09:17)
[2015-07-23] MEDS: CALCIUM CARBONATE PO SCH (20:21)
[2015-07-23] MEDS: MULTIVITAMINS WITH IRON PO SCH (20:21)
[2015-07-23] MEDS: CALCIUM PO SCH (20:21)
[2015-07-23] MEDS: ZINC GLUCONATE PO SCH (20:21)
[2015-07-23] MEDS: [UNRECOGNIZED DRUG - OTHER] PO SCH (20:21)
[2015-07-23] MEDS: OMEGA FISH OIL PO SCH (20:21)
[2015-07-23] MEDS: MAGNESIUM OXIDE PO SCH (20:21)
[2015-07-23] MEDS: FOLIC ACID PO SCH (20:21)
[2015-07-24] MEDS: LEVOTHYROXINE 75 MCG PO SCH (05:43)
[2015-07-24] MEDS: CHOLECALCIFEROL 5000 UNIT PO SCH (10:32)
[2015-07-24] MEDS: UBIDECARENONE 100 MG PO SCH ×2 (10:33→20:24)
[2015-07-24] MEDS: DABIGATRAN 150 MG PO SCH ×2 (10:34→20:24)
[2015-07-24] MEDS: Acetaminophen 500 MG Tab PO PRN (13:21)
[2015-07-24] MEDS: MAGNESIUM OXIDE PO SCH (20:23)
[2015-07-24] MEDS: CALCIUM CARBONATE PO SCH (20:23)
[2015-07-24] MEDS: ZINC GLUCONATE PO SCH (20:23)
[2015-07-24] MEDS: [UNRECOGNIZED DRUG - OTHER] PO SCH (20:24)
[2015-07-24] MEDS: CALCIUM PO SCH (20:24)
[2015-07-24] MEDS: OMEGA FISH OIL PO SCH (20:24)
[2015-07-24] MEDS: FOLIC ACID PO SCH (20:24)
[2015-07-24] MEDS: MULTIVITAMINS WITH IRON PO SCH (20:24)
[2015-07-25] MEDS: LEVOTHYROXINE 75 MCG PO SCH (06:17)
[2015-07-25] MEDS: UBIDECARENONE 100 MG PO SCH ×2 (08:43→20:11)
[2015-07-25] MEDS: CHOLECALCIFEROL 5000 UNIT PO SCH (08:44)
[2015-07-25] MEDS: DABIGATRAN 150 MG PO SCH ×2 (08:44→20:10)
[2015-07-25] MEDS: MULTIVITAMINS WITH IRON PO SCH (20:10)
[2015-07-25] MEDS: [UNRECOGNIZED DRUG - OTHER] PO SCH (20:10)
[2015-07-25] MEDS: MAGNESIUM OXIDE PO SCH (20:10)
[2015-07-25] MEDS: OMEGA FISH OIL PO SCH (20:10)
[2015-07-25] MEDS: CALCIUM PO SCH (20:10)
[2015-07-25] MEDS: ZINC GLUCONATE PO SCH (20:10)
[2015-07-25] MEDS: FOLIC ACID PO SCH (20:10)
[2015-07-25] MEDS: CALCIUM CARBONATE PO SCH (20:10)
[2015-07-26] MEDS: LEVOTHYROXINE 75 MCG PO SCH (06:13)
[2015-07-26] MEDS: CHOLECALCIFEROL 5000 UNIT PO SCH (09:09)
[2015-07-26] MEDS: DABIGATRAN 150 MG PO SCH ×2 (09:10→19:59)
[2015-07-26] MEDS: UBIDECARENONE 100 MG PO SCH ×2 (09:10→20:00)
[2015-07-26] MEDS: Acetaminophen 500 MG Tab PO PRN (10:35)
[2015-07-26] MEDS: CALCIUM PO SCH (20:00)
[2015-07-26] MEDS: OMEGA FISH OIL PO SCH (20:00)
[2015-07-26] MEDS: ZINC GLUCONATE PO SCH (20:00)
[2015-07-26] MEDS: MULTIVITAMINS WITH IRON PO SCH (20:00)
[2015-07-26] MEDS: [UNRECOGNIZED DRUG - OTHER] PO SCH (20:00)
[2015-07-26] MEDS: CALCIUM CARBONATE PO SCH (20:00)
[2015-07-26] MEDS: FOLIC ACID PO SCH (20:00)
[2015-07-26] MEDS: MAGNESIUM OXIDE PO SCH (20:00)
[2015-07-27] MEDS: LEVOTHYROXINE 75 MCG PO SCH (06:00)
[2015-07-27] MEDS: UBIDECARENONE 100 MG PO SCH ×2 (11:12→22:32)
[2015-07-27] MEDS: CHOLECALCIFEROL 5000 UNIT PO SCH (11:13)
[2015-07-27] MEDS: DABIGATRAN 150 MG PO SCH ×2 (11:13→20:34)
[2015-07-27] MEDS: OMEGA FISH OIL PO SCH (20:34)
[2015-07-27] MEDS: CALCIUM CARBONATE PO SCH (20:34)
[2015-07-27] MEDS: CALCIUM PO SCH (20:34)
[2015-07-27] MEDS: MULTIVITAMINS WITH IRON PO SCH (20:34)
[2015-07-27] MEDS: MAGNESIUM OXIDE PO SCH (20:34)
[2015-07-27] MEDS: FOLIC ACID PO SCH (20:34)
[2015-07-27] MEDS: ZINC GLUCONATE PO SCH (20:34)
[2015-07-27] MEDS: [UNRECOGNIZED DRUG - OTHER] PO SCH (20:34)
[2015-07-28] MEDS: CHOLECALCIFEROL 5000 UNIT PO SCH (09:39)
[2015-07-28] MEDS: DABIGATRAN 150 MG PO SCH ×2 (09:40→21:25)
[2015-07-28] MEDS: UBIDECARENONE 100 MG PO SCH ×2 (09:41→21:28)
[2015-07-28] MEDS: MULTIVITAMINS WITH IRON PO SCH (21:26)
[2015-07-28] MEDS: FOLIC ACID PO SCH (21:26)
[2015-07-28] MEDS: [UNRECOGNIZED DRUG - OTHER] PO SCH (21:26)
[2015-07-28] MEDS: CALCIUM PO SCH (21:26)
[2015-07-28] MEDS: OMEGA FISH OIL PO SCH (21:26)
[2015-07-28] MEDS: MAGNESIUM OXIDE PO SCH (21:27)
[2015-07-28] MEDS: CALCIUM CARBONATE PO SCH (21:27)
[2015-07-28] MEDS: ZINC GLUCONATE PO SCH (21:27)
[2015-07-29] MEDS: LEVOTHYROXINE 75 MCG PO SCH (06:32)
[2015-07-29] MEDS: UBIDECARENONE 100 MG PO SCH ×2 (10:58→21:15)
[2015-07-29] MEDS: CHOLECALCIFEROL 5000 UNIT PO SCH (10:58)
[2015-07-29] MEDS: DABIGATRAN 150 MG PO SCH ×2 (10:58→21:13)
[2015-07-29] MEDS: OMEGA FISH OIL PO SCH (21:13)
[2015-07-29] MEDS: MAGNESIUM OXIDE PO SCH (21:14)
[2015-07-29] MEDS: CALCIUM CARBONATE PO SCH (21:14)
[2015-07-29] MEDS: ZINC GLUCONATE PO SCH (21:14)
[2015-07-29] MEDS: FOLIC ACID PO SCH (21:15)
[2015-07-29] MEDS: MULTIVITAMINS WITH IRON PO SCH (21:15)
[2015-07-29] MEDS: CALCIUM PO SCH (21:15)
[2015-07-29] MEDS: [UNRECOGNIZED DRUG - OTHER] PO SCH (21:15)
[2015-07-30] MEDS: LEVOTHYROXINE 75 MCG PO SCH (06:25)
[2015-07-30] MEDS: DABIGATRAN 150 MG PO SCH ×2 (09:22→21:26)
[2015-07-30] MEDS: CHOLECALCIFEROL 5000 UNIT PO SCH (09:22)
[2015-07-30] MEDS: UBIDECARENONE 100 MG PO SCH ×2 (09:23→21:24)
[2015-07-30] MEDS: MAGNESIUM OXIDE PO SCH (21:25)
[2015-07-30] MEDS: [UNRECOGNIZED DRUG - OTHER] PO SCH (21:25)
[2015-07-30] MEDS: CALCIUM CARBONATE PO SCH (21:25)
[2015-07-30] MEDS: FOLIC ACID PO SCH (21:25)
[2015-07-30] MEDS: CALCIUM PO SCH (21:25)
[2015-07-30] MEDS: MULTIVITAMINS WITH IRON PO SCH (21:25)
[2015-07-30] MEDS: OMEGA FISH OIL PO SCH (21:25)
[2015-07-30] MEDS: ZINC GLUCONATE PO SCH (21:25)
[2015-07-31] MEDS: LEVOTHYROXINE 75 MCG PO SCH (06:37)
[2015-07-31] MEDS: CHOLECALCIFEROL 5000 UNIT PO SCH (08:40)
[2015-07-31] MEDS: DABIGATRAN 150 MG PO SCH ×2 (08:41→20:22)
[2015-07-31] MEDS: UBIDECARENONE 100 MG PO SCH ×2 (08:41→20:21)
[2015-07-31] MEDS: MULTIVITAMINS WITH IRON PO SCH (20:21)
[2015-07-31] MEDS: CALCIUM PO SCH (20:21)
[2015-07-31] MEDS: FOLIC ACID PO SCH (20:21)
[2015-07-31] MEDS: [UNRECOGNIZED DRUG - OTHER] PO SCH (20:21)
[2015-07-31] MEDS: CALCIUM CARBONATE PO SCH (20:22)
[2015-07-31] MEDS: MAGNESIUM OXIDE PO SCH (20:22)
[2015-07-31] MEDS: ZINC GLUCONATE PO SCH (20:22)
[2015-07-31] MEDS: OMEGA FISH OIL PO SCH (20:22)
[2015-08-01] MEDS: LEVOTHYROXINE 75 MCG PO SCH (06:26)
[2015-08-01] MEDS: DABIGATRAN 150 MG PO SCH ×2 (08:37→22:45)
[2015-08-01] MEDS: CHOLECALCIFEROL 5000 UNIT PO SCH (08:38)
[2015-08-01] MEDS: UBIDECARENONE 100 MG PO SCH ×2 (08:38→22:46)
[2015-08-01] MEDS: OMEGA FISH OIL PO SCH (22:45)
[2015-08-01] MEDS: ZINC GLUCONATE PO SCH (22:46)
[2015-08-01] MEDS: MAGNESIUM OXIDE PO SCH (22:46)
[2015-08-01] MEDS: CALCIUM CARBONATE PO SCH (22:46)
[2015-08-01] MEDS: CALCIUM PO SCH (22:47)
[2015-08-01] MEDS: FOLIC ACID PO SCH (22:47)
[2015-08-01] MEDS: MULTIVITAMINS WITH IRON PO SCH (22:47)
[2015-08-01] MEDS: [UNRECOGNIZED DRUG - OTHER] PO SCH (22:47)
[2015-08-02] MEDS: LEVOTHYROXINE 75 MCG PO SCH (09:09)
[2015-08-02] MEDS: CHOLECALCIFEROL 5000 UNIT PO SCH (09:09)
[2015-08-02] MEDS: UBIDECARENONE 100 MG PO SCH ×2 (09:09→20:05)
[2015-08-02] MEDS: DABIGATRAN 150 MG PO SCH ×2 (09:10→20:05)
[2015-08-02] MEDS: CALCIUM PO SCH (20:06)
[2015-08-02] MEDS: [UNRECOGNIZED DRUG - OTHER] PO SCH (20:06)
[2015-08-02] MEDS: FOLIC ACID PO SCH (20:06)
[2015-08-02] MEDS: MULTIVITAMINS WITH IRON PO SCH (20:06)
[2015-08-02] MEDS: ZINC GLUCONATE PO SCH (20:07)
[2015-08-02] MEDS: CALCIUM CARBONATE PO SCH (20:07)
[2015-08-02] MEDS: OMEGA FISH OIL PO SCH (20:07)
[2015-08-02] MEDS: MAGNESIUM OXIDE PO SCH (20:07)
[2015-08-03] MEDS: LEVOTHYROXINE 75 MCG PO SCH (06:25)
[2015-08-03] MEDS: UBIDECARENONE 100 MG PO SCH ×2 (09:58→19:44)
[2015-08-03] MEDS: DABIGATRAN 150 MG PO SCH ×2 (09:58→19:44)
[2015-08-03] MEDS: CHOLECALCIFEROL 5000 UNIT PO SCH (09:58)
[2015-08-03] MEDS: Acetaminophen 500 MG Tab PO PRN (15:51)
[2015-08-03] MEDS: OMEGA FISH OIL PO SCH (19:44)
[2015-08-03] MEDS: ZINC GLUCONATE PO SCH (19:44)
[2015-08-03] MEDS: MULTIVITAMINS WITH IRON PO SCH (19:44)
[2015-08-03] MEDS: CALCIUM CARBONATE PO SCH (19:44)
[2015-08-03] MEDS: FOLIC ACID PO SCH (19:44)
[2015-08-03] MEDS: CALCIUM PO SCH (19:44)
[2015-08-03] MEDS: [UNRECOGNIZED DRUG - OTHER] PO SCH (19:44)
[2015-08-03] MEDS: MAGNESIUM OXIDE PO SCH (19:44)
[2015-08-04] MEDS: DABIGATRAN 150 MG PO SCH ×2 (08:58→20:04)
[2015-08-04] MEDS: UBIDECARENONE 100 MG PO SCH ×2 (08:59→20:05)
[2015-08-04] MEDS: CHOLECALCIFEROL 5000 UNIT PO SCH (08:59)
[2015-08-04] MEDS: FOLIC ACID PO SCH (20:05)
[2015-08-04] MEDS: MULTIVITAMINS WITH IRON PO SCH (20:05)
[2015-08-04] MEDS: [UNRECOGNIZED DRUG - OTHER] PO SCH (20:05)
[2015-08-04] MEDS: CALCIUM PO SCH (20:05)
[2015-08-04] MEDS: OMEGA FISH OIL PO SCH (20:06)
[2015-08-04] MEDS: CALCIUM CARBONATE PO SCH (20:06)
[2015-08-04] MEDS: ZINC GLUCONATE PO SCH (20:06)
[2015-08-04] MEDS: MAGNESIUM OXIDE PO SCH (20:06)
[2015-08-05] MEDS: LEVOTHYROXINE 75 MCG PO SCH (06:12)
[2015-08-05] MEDS: DABIGATRAN 150 MG PO SCH ×2 (08:31→19:24)
[2015-08-05] MEDS: UBIDECARENONE 100 MG PO SCH ×2 (08:31→19:24)
[2015-08-05] MEDS: CHOLECALCIFEROL 5000 UNIT PO SCH (08:31)
[2015-08-05] MEDS: Acetaminophen 500 MG Tab PO PRN (11:14)
[2015-08-05] MEDS: OMEGA FISH OIL PO SCH (19:24)
[2015-08-05] MEDS: MAGNESIUM OXIDE PO SCH (19:25)
[2015-08-05] MEDS: MULTIVITAMINS WITH IRON PO SCH (19:25)
[2015-08-05] MEDS: [UNRECOGNIZED DRUG - OTHER] PO SCH (19:25)
[2015-08-05] MEDS: FOLIC ACID PO SCH (19:25)
[2015-08-05] MEDS: CALCIUM PO SCH (19:25)
[2015-08-05] MEDS: ZINC GLUCONATE PO SCH (19:25)
[2015-08-05] MEDS: CALCIUM CARBONATE PO SCH (19:25)
[2015-08-06] MEDS: LEVOTHYROXINE 75 MCG PO SCH (06:25)
[2015-08-06] MEDS: DABIGATRAN 150 MG PO SCH ×2 (08:49→20:06)
[2015-08-06] MEDS: CHOLECALCIFEROL 5000 UNIT PO SCH (08:49)
[2015-08-06] MEDS: UBIDECARENONE 100 MG PO SCH ×2 (08:49→20:08)
[2015-08-06] MEDS: CALCIUM CARBONATE PO SCH (20:06)
[2015-08-06] MEDS: ZINC GLUCONATE PO SCH (20:06)
[2015-08-06] MEDS: MAGNESIUM OXIDE PO SCH (20:06)
[2015-08-06] MEDS: CALCIUM PO SCH (20:07)
[2015-08-06] MEDS: MULTIVITAMINS WITH IRON PO SCH (20:07)
[2015-08-06] MEDS: [UNRECOGNIZED DRUG - OTHER] PO SCH (20:07)
[2015-08-06] MEDS: FOLIC ACID PO SCH (20:07)
[2015-08-06] MEDS: OMEGA FISH OIL PO SCH (20:07)
[2015-08-07] MEDS: LEVOTHYROXINE 75 MCG PO SCH (05:45)
[2015-08-07] MEDS: CHOLECALCIFEROL 5000 UNIT PO SCH (09:50)
[2015-08-07] MEDS: UBIDECARENONE 100 MG PO SCH ×2 (09:50→20:04)
[2015-08-07] MEDS: DABIGATRAN 150 MG PO SCH ×2 (09:51→20:03)
[2015-08-07] MEDS: MAGNESIUM OXIDE PO SCH (20:03)
[2015-08-07] MEDS: CALCIUM CARBONATE PO SCH (20:03)
[2015-08-07] MEDS: ZINC GLUCONATE PO SCH (20:03)
[2015-08-07] MEDS: [UNRECOGNIZED DRUG - OTHER] PO SCH (20:04)
[2015-08-07] MEDS: MULTIVITAMINS WITH IRON PO SCH (20:04)
[2015-08-07] MEDS: FOLIC ACID PO SCH (20:04)
[2015-08-07] MEDS: OMEGA FISH OIL PO SCH (20:04)
[2015-08-07] MEDS: CALCIUM PO SCH (20:04)
[2015-08-08] MEDS: LEVOTHYROXINE 75 MCG PO SCH (05:43)
[2015-08-08] MEDS: UBIDECARENONE 100 MG PO SCH ×2 (09:16→19:48)
[2015-08-08] MEDS: CHOLECALCIFEROL 5000 UNIT PO SCH (09:16)
[2015-08-08] MEDS: DABIGATRAN 150 MG PO SCH ×2 (09:17→19:47)
[2015-08-08] MEDS: ZINC GLUCONATE PO SCH (19:46)
[2015-08-08] MEDS: CALCIUM CARBONATE PO SCH (19:46)
[2015-08-08] MEDS: MAGNESIUM OXIDE PO SCH (19:46)
[2015-08-08] MEDS: OMEGA FISH OIL PO SCH (19:47)
[2015-08-08] MEDS: MULTIVITAMINS WITH IRON PO SCH (19:48)
[2015-08-08] MEDS: FOLIC ACID PO SCH (19:48)
[2015-08-08] MEDS: [UNRECOGNIZED DRUG - OTHER] PO SCH (19:48)
[2015-08-08] MEDS: CALCIUM PO SCH (19:48)
[2015-08-09] MEDS: LEVOTHYROXINE 75 MCG PO SCH (06:14)
[2015-08-09] MEDS: UBIDECARENONE 100 MG PO SCH ×2 (10:00→18:52)
[2015-08-09] MEDS: CHOLECALCIFEROL 5000 UNIT PO SCH (10:01)
[2015-08-09] MEDS: DABIGATRAN 150 MG PO SCH ×2 (10:03→18:52)
[2015-08-09] MEDS: CALCIUM CARBONATE PO SCH (18:53)
[2015-08-09] MEDS: MULTIVITAMINS WITH IRON PO SCH (18:53)
[2015-08-09] MEDS: ZINC GLUCONATE PO SCH (18:53)
[2015-08-09] MEDS: [UNRECOGNIZED DRUG - OTHER] PO SCH (18:53)
[2015-08-09] MEDS: OMEGA FISH OIL PO SCH (18:53)
[2015-08-09] MEDS: MAGNESIUM OXIDE PO SCH (18:53)
[2015-08-09] MEDS: FOLIC ACID PO SCH (18:53)
[2015-08-09] MEDS: CALCIUM PO SCH (18:53)
[2015-08-10] MEDS: LEVOTHYROXINE 75 MCG PO SCH (06:59)
[2015-08-10] MEDS: DABIGATRAN 150 MG PO SCH ×2 (09:12→21:29)
[2015-08-10] MEDS: CHOLECALCIFEROL 5000 UNIT PO SCH (09:12)
[2015-08-10] MEDS: UBIDECARENONE 100 MG PO SCH ×2 (09:12→21:29)
[2015-08-10] MEDS: CALCIUM CARBONATE PO SCH (21:29)
[2015-08-10] MEDS: ZINC GLUCONATE PO SCH (21:29)
[2015-08-10] MEDS: MAGNESIUM OXIDE PO SCH (21:29)
[2015-08-10] MEDS: [UNRECOGNIZED DRUG - OTHER] PO SCH (21:30)
[2015-08-10] MEDS: MULTIVITAMINS WITH IRON PO SCH (21:30)
[2015-08-10] MEDS: FOLIC ACID PO SCH (21:30)
[2015-08-10] MEDS: CALCIUM PO SCH (21:30)
[2015-08-10] MEDS: OMEGA FISH OIL PO SCH (21:30)
[2015-08-11] MEDS: CHOLECALCIFEROL 5000 UNIT PO SCH (10:15)
[2015-08-11] MEDS: DABIGATRAN 150 MG PO SCH ×2 (10:15→21:12)
[2015-08-11] MEDS: UBIDECARENONE 100 MG PO SCH ×2 (10:16→21:11)
[2015-08-11] MEDS: Acetaminophen 500 MG Tab PO PRN (11:06)
[2015-08-11] MEDS: CALCIUM CARBONATE PO SCH (21:10)
[2015-08-11] MEDS: ZINC GLUCONATE PO SCH (21:10)
[2015-08-11] MEDS: MAGNESIUM OXIDE PO SCH (21:10)
[2015-08-11] MEDS: OMEGA FISH OIL PO SCH (21:10)
[2015-08-11] MEDS: CALCIUM PO SCH (21:11)
[2015-08-11] MEDS: [UNRECOGNIZED DRUG - OTHER] PO SCH (21:11)
[2015-08-11] MEDS: FOLIC ACID PO SCH (21:11)
[2015-08-11] MEDS: MULTIVITAMINS WITH IRON PO SCH (21:11)
[2015-08-12] MEDS: UBIDECARENONE 100 MG PO SCH ×2 (09:32→20:36)
[2015-08-12] MEDS: LEVOTHYROXINE 75 MCG PO SCH (09:32)
[2015-08-12] MEDS: DABIGATRAN 150 MG PO SCH ×2 (09:32→20:36)
[2015-08-12] MEDS: CHOLECALCIFEROL 5000 UNIT PO SCH (09:32)
[2015-08-12] MEDS: FOLIC ACID PO SCH (20:37)
[2015-08-12] MEDS: OMEGA FISH OIL PO SCH (20:37)
[2015-08-12] MEDS: CALCIUM PO SCH (20:37)
[2015-08-12] MEDS: MAGNESIUM OXIDE PO SCH (20:37)
[2015-08-12] MEDS: ZINC GLUCONATE PO SCH (20:37)
[2015-08-12] MEDS: CALCIUM CARBONATE PO SCH (20:37)
[2015-08-12] MEDS: MULTIVITAMINS WITH IRON PO SCH (20:37)
[2015-08-12] MEDS: [UNRECOGNIZED DRUG - OTHER] PO SCH (20:37)
[2015-08-13] MEDS: LEVOTHYROXINE 75 MCG PO SCH (05:50)
[2015-08-13] MEDS: DABIGATRAN 150 MG PO SCH ×2 (09:26→19:32)
[2015-08-13] MEDS: CHOLECALCIFEROL 5000 UNIT PO SCH (09:26)
[2015-08-13] MEDS: UBIDECARENONE 100 MG PO SCH ×2 (09:27→19:32)
--- NOTE | 2015-08-13 13:31 | PN ---
Progress Note for EMILY SHEETS Date: 08/13/2015 Room #: VM.207 SUBJECTIVE: This is an 85-year-old seen for followup on swing bed. She has been at our hospital since May. She is doing fine with no concerns other than some itchy spots on her hands. She has been using Neosporin. She has never had skin cancer. It looks like actinic keratosis. She has had some for years and just got a few more recently. She is having some more trouble with arthritis in her legs, getting up and walking today. OBJECTIVE: Vital Signs: Otherwise, her temperature is 97.3, pulse 60, blood pressure 114/60, respiratory rate 16, O2 97% on room air. General: She is in no acute distress. Heart: Irregularly irregular. Lungs: Sounds are clear to auscultation bilaterally without crackles or wheezes. Extremities: Warm and dry. No edema. Mental Status: She is alert and orientated x3. Skin: Shows some fine, scaly patches to both hands and consistent with actinic keratoses. LABORATORY DATA: Showed a TSH normal at 2.36 last month. ASSESSMENT: 1. Hypothyroidism, adequately treated. 2. Atrial fibrillation with previous transient ischemic attack, on anticoagulation. 3. Chronic leg weakness. 4. Hypertension. 5. Generalized osteoarthritis. 6. Actinic keratosis. PLAN: The patient will continue swing bed cares for assistance with ADLs. No lab work is due. If the actinic keratoses continue, we will bring her over to the clinic for liquid nitrogen treatment. MKA: 08/13/2015 13:07:24 MODL: 08/13/2015 13:22:30 /[id number]
[2015-08-13] MEDS: MAGNESIUM OXIDE PO SCH (19:31)
[2015-08-13] MEDS: ZINC GLUCONATE PO SCH (19:31)
[2015-08-13] MEDS: CALCIUM CARBONATE PO SCH (19:31)
[2015-08-13] MEDS: OMEGA FISH OIL PO SCH (19:32)
[2015-08-13] MEDS: CALCIUM PO SCH (19:32)
[2015-08-13] MEDS: FOLIC ACID PO SCH (19:32)
[2015-08-13] MEDS: MULTIVITAMINS WITH IRON PO SCH (19:32)
[2015-08-13] MEDS: [UNRECOGNIZED DRUG - OTHER] PO SCH (19:32)
[2015-08-14] MEDS: LEVOTHYROXINE 75 MCG PO SCH (05:56)
[2015-08-14] MEDS: CHOLECALCIFEROL 5000 UNIT PO SCH (08:41)
[2015-08-14] MEDS: UBIDECARENONE 100 MG PO SCH ×2 (08:42→19:32)
[2015-08-14] MEDS: DABIGATRAN 150 MG PO SCH ×2 (08:43→19:31)
[2015-08-14] MEDS: Acetaminophen 500 MG Tab PO PRN (10:18)
[2015-08-14] MEDS: CALCIUM CARBONATE PO SCH (19:31)
[2015-08-14] MEDS: MAGNESIUM OXIDE PO SCH (19:31)
[2015-08-14] MEDS: ZINC GLUCONATE PO SCH (19:31)
[2015-08-14] MEDS: [UNRECOGNIZED DRUG - OTHER] PO SCH (19:32)
[2015-08-14] MEDS: CALCIUM PO SCH (19:32)
[2015-08-14] MEDS: OMEGA FISH OIL PO SCH (19:32)
[2015-08-14] MEDS: FOLIC ACID PO SCH (19:32)
[2015-08-14] MEDS: MULTIVITAMINS WITH IRON PO SCH (19:32)
[2015-08-15] MEDS: LEVOTHYROXINE 75 MCG PO SCH (06:20)
[2015-08-15] MEDS: DABIGATRAN 150 MG PO SCH ×2 (09:09→21:03)
[2015-08-15] MEDS: CHOLECALCIFEROL 5000 UNIT PO SCH (09:09)
[2015-08-15] MEDS: UBIDECARENONE 100 MG PO SCH ×2 (09:09→21:03)
[2015-08-15] MEDS: CALCIUM PO SCH (21:04)
[2015-08-15] MEDS: ZINC GLUCONATE PO SCH (21:04)
[2015-08-15] MEDS: CALCIUM CARBONATE PO SCH (21:04)
[2015-08-15] MEDS: MAGNESIUM OXIDE PO SCH (21:04)
[2015-08-15] MEDS: [UNRECOGNIZED DRUG - OTHER] PO SCH (21:04)
[2015-08-15] MEDS: OMEGA FISH OIL PO SCH (21:04)
[2015-08-15] MEDS: FOLIC ACID PO SCH (21:04)
[2015-08-15] MEDS: MULTIVITAMINS WITH IRON PO SCH (21:04)
[2015-08-16] MEDS: LEVOTHYROXINE 75 MCG PO SCH (06:48)
[2015-08-16] MEDS: DABIGATRAN 150 MG PO SCH ×2 (09:10→20:33)
[2015-08-16] MEDS: UBIDECARENONE 100 MG PO SCH ×2 (09:11→20:32)
[2015-08-16] MEDS: CHOLECALCIFEROL 5000 UNIT PO SCH (09:11)
[2015-08-16] MEDS: OMEGA FISH OIL PO SCH (20:32)
[2015-08-16] MEDS: CALCIUM PO SCH (20:32)
[2015-08-16] MEDS: FOLIC ACID PO SCH (20:32)
[2015-08-16] MEDS: MULTIVITAMINS WITH IRON PO SCH (20:32)
[2015-08-16] MEDS: [UNRECOGNIZED DRUG - OTHER] PO SCH (20:32)
[2015-08-16] MEDS: MAGNESIUM OXIDE PO SCH (20:33)
[2015-08-16] MEDS: CALCIUM CARBONATE PO SCH (20:33)
[2015-08-16] MEDS: ZINC GLUCONATE PO SCH (20:33)
[2015-08-17] MEDS: LEVOTHYROXINE 75 MCG PO SCH (07:55)
[2015-08-17] MEDS: Acetaminophen 500 MG Tab PO PRN (10:12)
[2015-08-17] MEDS: CHOLECALCIFEROL 5000 UNIT PO SCH (10:13)
[2015-08-17] MEDS: UBIDECARENONE 100 MG PO SCH ×2 (10:13→19:54)
[2015-08-17] MEDS: DABIGATRAN 150 MG PO SCH ×2 (10:15→19:53)
[2015-08-17] MEDS: CALCIUM PO SCH (19:54)
[2015-08-17] MEDS: MULTIVITAMINS WITH IRON PO SCH (19:54)
[2015-08-17] MEDS: MAGNESIUM OXIDE PO SCH (19:54)
[2015-08-17] MEDS: CALCIUM CARBONATE PO SCH (19:54)
[2015-08-17] MEDS: OMEGA FISH OIL PO SCH (19:54)
[2015-08-17] MEDS: ZINC GLUCONATE PO SCH (19:54)
[2015-08-17] MEDS: FOLIC ACID PO SCH (19:54)
[2015-08-17] MEDS: [UNRECOGNIZED DRUG - OTHER] PO SCH (19:54)
[2015-08-18] MEDS: DABIGATRAN 150 MG PO SCH ×2 (09:19→19:57)
[2015-08-18] MEDS: CHOLECALCIFEROL 5000 UNIT PO SCH (09:19)
[2015-08-18] MEDS: UBIDECARENONE 100 MG PO SCH ×2 (09:19→19:58)
[2015-08-18] MEDS: CALCIUM CARBONATE PO SCH (19:57)
[2015-08-18] MEDS: MAGNESIUM OXIDE PO SCH (19:57)
[2015-08-18] MEDS: ZINC GLUCONATE PO SCH (19:57)
[2015-08-18] MEDS: MULTIVITAMINS WITH IRON PO SCH (19:58)
[2015-08-18] MEDS: FOLIC ACID PO SCH (19:58)
[2015-08-18] MEDS: [UNRECOGNIZED DRUG - OTHER] PO SCH (19:58)
[2015-08-18] MEDS: CALCIUM PO SCH (19:58)
[2015-08-18] MEDS: OMEGA FISH OIL PO SCH (19:58)
[2015-08-19] MEDS: LEVOTHYROXINE 75 MCG PO SCH (06:03)
[2015-08-19] MEDS: DABIGATRAN 150 MG PO SCH ×2 (09:07→20:13)
[2015-08-19] MEDS: UBIDECARENONE 100 MG PO SCH ×2 (09:08→20:13)
[2015-08-19] MEDS: CHOLECALCIFEROL 5000 UNIT PO SCH (09:10)
[2015-08-19] MEDS: MAGNESIUM OXIDE PO SCH (20:13)
[2015-08-19] MEDS: [UNRECOGNIZED DRUG - OTHER] PO SCH (20:13)
[2015-08-19] MEDS: CALCIUM PO SCH (20:13)
[2015-08-19] MEDS: ZINC GLUCONATE PO SCH (20:13)
[2015-08-19] MEDS: CALCIUM CARBONATE PO SCH (20:13)
[2015-08-19] MEDS: MULTIVITAMINS WITH IRON PO SCH (20:13)
[2015-08-19] MEDS: FOLIC ACID PO SCH (20:13)
[2015-08-19] MEDS: OMEGA FISH OIL PO SCH (20:14)
[2015-08-20] MEDS: LEVOTHYROXINE 75 MCG PO SCH (05:52)
[2015-08-20] MEDS: DABIGATRAN 150 MG PO SCH ×2 (08:42→21:08)
[2015-08-20] MEDS: UBIDECARENONE 100 MG PO SCH ×2 (08:43→21:07)
[2015-08-20] MEDS: CHOLECALCIFEROL 5000 UNIT PO SCH (08:43)
[2015-08-20] MEDS: [UNRECOGNIZED DRUG - OTHER] PO SCH (21:03)
[2015-08-20] MEDS: CALCIUM PO SCH (21:03)
[2015-08-20] MEDS: MULTIVITAMINS WITH IRON PO SCH (21:03)
[2015-08-20] MEDS: FOLIC ACID PO SCH (21:03)
[2015-08-20] MEDS: OMEGA FISH OIL PO SCH (21:04)
[2015-08-20] MEDS: CALCIUM CARBONATE PO SCH (21:06)
[2015-08-20] MEDS: ZINC GLUCONATE PO SCH (21:06)
[2015-08-20] MEDS: MAGNESIUM OXIDE PO SCH (21:06)
[2015-08-21] MEDS: UBIDECARENONE 100 MG PO SCH ×2 (07:24→20:36)
[2015-08-21] MEDS: LEVOTHYROXINE 75 MCG PO SCH (07:24)
[2015-08-21] MEDS: CHOLECALCIFEROL 5000 UNIT PO SCH (07:25)
[2015-08-21] MEDS: DABIGATRAN 150 MG PO SCH ×2 (07:26→20:36)
[2015-08-21] MEDS: OMEGA FISH OIL PO SCH (20:36)
[2015-08-21] MEDS: MAGNESIUM OXIDE PO SCH (20:36)
[2015-08-21] MEDS: CALCIUM CARBONATE PO SCH (20:36)
[2015-08-21] MEDS: FOLIC ACID PO SCH (20:36)
[2015-08-21] MEDS: MULTIVITAMINS WITH IRON PO SCH (20:36)
[2015-08-21] MEDS: ZINC GLUCONATE PO SCH (20:36)
[2015-08-21] MEDS: [UNRECOGNIZED DRUG - OTHER] PO SCH (20:36)
[2015-08-21] MEDS: CALCIUM PO SCH (20:36)
[2015-08-22] MEDS: LEVOTHYROXINE 75 MCG PO SCH (07:27)
[2015-08-22] MEDS: CHOLECALCIFEROL 5000 UNIT PO SCH (08:45)
[2015-08-22] MEDS: UBIDECARENONE 100 MG PO SCH ×2 (08:45→20:47)
[2015-08-22] MEDS: DABIGATRAN 150 MG PO SCH ×2 (08:45→20:48)
[2015-08-22] MEDS: MAGNESIUM OXIDE PO SCH (20:47)
[2015-08-22] MEDS: CALCIUM CARBONATE PO SCH (20:47)
[2015-08-22] MEDS: ZINC GLUCONATE PO SCH (20:47)
[2015-08-22] MEDS: OMEGA FISH OIL PO SCH (20:47)
[2015-08-22] MEDS: FOLIC ACID PO SCH (20:48)
[2015-08-22] MEDS: MULTIVITAMINS WITH IRON PO SCH (20:48)
[2015-08-22] MEDS: [UNRECOGNIZED DRUG - OTHER] PO SCH (20:48)
[2015-08-22] MEDS: CALCIUM PO SCH (20:48)
[2015-08-23] MEDS: LEVOTHYROXINE 75 MCG PO SCH (06:36)
[2015-08-23] MEDS: CHOLECALCIFEROL 5000 UNIT PO SCH (09:25)
[2015-08-23] MEDS: UBIDECARENONE 100 MG PO SCH ×2 (09:25→20:59)
[2015-08-23] MEDS: DABIGATRAN 150 MG PO SCH ×2 (09:26→20:58)
[2015-08-23] MEDS: Acetaminophen 500 MG Tab PO PRN (11:10)
[2015-08-23] MEDS: FOLIC ACID PO SCH (20:59)
[2015-08-23] MEDS: CALCIUM PO SCH (20:59)
[2015-08-23] MEDS: OMEGA FISH OIL PO SCH (20:59)
[2015-08-23] MEDS: MAGNESIUM OXIDE PO SCH (20:59)
[2015-08-23] MEDS: ZINC GLUCONATE PO SCH (20:59)
[2015-08-23] MEDS: CALCIUM CARBONATE PO SCH (20:59)
[2015-08-23] MEDS: MULTIVITAMINS WITH IRON PO SCH (20:59)
[2015-08-23] MEDS: [UNRECOGNIZED DRUG - OTHER] PO SCH (20:59)
[2015-08-24] MEDS: LEVOTHYROXINE 75 MCG PO SCH (06:26)
[2015-08-24] MEDS: CHOLECALCIFEROL 5000 UNIT PO SCH (09:01)
[2015-08-24] MEDS: DABIGATRAN 150 MG PO SCH ×2 (09:01→20:13)
[2015-08-24] MEDS: UBIDECARENONE 100 MG PO SCH ×2 (09:01→20:11)
[2015-08-24] MEDS: Acetaminophen 500 MG Tab PO PRN (11:09)
[2015-08-24] MEDS: FOLIC ACID PO SCH (20:11)
[2015-08-24] MEDS: CALCIUM PO SCH (20:11)
[2015-08-24] MEDS: [UNRECOGNIZED DRUG - OTHER] PO SCH (20:11)
[2015-08-24] MEDS: MULTIVITAMINS WITH IRON PO SCH (20:11)
[2015-08-24] MEDS: ZINC GLUCONATE PO SCH (20:11)
[2015-08-24] MEDS: OMEGA FISH OIL PO SCH (20:11)
[2015-08-24] MEDS: MAGNESIUM OXIDE PO SCH (20:11)
[2015-08-24] MEDS: CALCIUM CARBONATE PO SCH (20:11)
[2015-08-25] MEDS: DABIGATRAN 150 MG PO SCH ×2 (09:22→20:32)
[2015-08-25] MEDS: CHOLECALCIFEROL 5000 UNIT PO SCH (09:23)
[2015-08-25] MEDS: UBIDECARENONE 100 MG PO SCH ×2 (09:24→20:32)
[2015-08-25] MEDS: Acetaminophen 500 MG Tab PO PRN (09:36)
[2015-08-25] MEDS: ZINC GLUCONATE PO SCH (20:31)
[2015-08-25] MEDS: CALCIUM PO SCH (20:31)
[2015-08-25] MEDS: [UNRECOGNIZED DRUG - OTHER] PO SCH (20:31)
[2015-08-25] MEDS: FOLIC ACID PO SCH (20:31)
[2015-08-25] MEDS: CALCIUM CARBONATE PO SCH (20:31)
[2015-08-25] MEDS: OMEGA FISH OIL PO SCH (20:31)
[2015-08-25] MEDS: MAGNESIUM OXIDE PO SCH (20:31)
[2015-08-25] MEDS: MULTIVITAMINS WITH IRON PO SCH (20:31)
[2015-08-26] MEDS: LEVOTHYROXINE 75 MCG PO SCH ×2 (05:21)
[2015-08-26] MEDS: DABIGATRAN 150 MG PO SCH ×2 (07:45→21:00)
[2015-08-26] MEDS: CHOLECALCIFEROL 5000 UNIT PO SCH (07:46)
[2015-08-26] MEDS: UBIDECARENONE 100 MG PO SCH ×2 (07:46→21:00)
[2015-08-26] MEDS: Acetaminophen 500 MG Tab PO PRN (07:47)
[2015-08-26] MEDS: CALCIUM CARBONATE PO SCH (21:00)
[2015-08-26] MEDS: FOLIC ACID PO SCH (21:00)
[2015-08-26] MEDS: CALCIUM PO SCH (21:00)
[2015-08-26] MEDS: MAGNESIUM OXIDE PO SCH (21:00)
[2015-08-26] MEDS: MULTIVITAMINS WITH IRON PO SCH (21:00)
[2015-08-26] MEDS: OMEGA FISH OIL PO SCH (21:00)
[2015-08-26] MEDS: [UNRECOGNIZED DRUG - OTHER] PO SCH (21:00)
[2015-08-26] MEDS: ZINC GLUCONATE PO SCH (21:00)
[2015-08-27] MEDS: LEVOTHYROXINE 75 MCG PO SCH (06:50)
[2015-08-27] MEDS: DABIGATRAN 150 MG PO SCH ×2 (09:29→21:42)
[2015-08-27] MEDS: UBIDECARENONE 100 MG PO SCH ×2 (09:29→21:43)
[2015-08-27] MEDS: CHOLECALCIFEROL 5000 UNIT PO SCH (09:30)
[2015-08-27] MEDS: MAGNESIUM OXIDE PO SCH (21:43)
[2015-08-27] MEDS: CALCIUM CARBONATE PO SCH (21:43)
[2015-08-27] MEDS: OMEGA FISH OIL PO SCH (21:43)
[2015-08-27] MEDS: ZINC GLUCONATE PO SCH (21:43)
[2015-08-27] MEDS: CALCIUM PO SCH (21:44)
[2015-08-27] MEDS: FOLIC ACID PO SCH (21:44)
[2015-08-27] MEDS: [UNRECOGNIZED DRUG - OTHER] PO SCH (21:44)
[2015-08-27] MEDS: MULTIVITAMINS WITH IRON PO SCH (21:44)
[2015-08-28] MEDS: LEVOTHYROXINE 75 MCG PO SCH (08:47)
[2015-08-28] MEDS: CHOLECALCIFEROL 5000 UNIT PO SCH (09:36)
[2015-08-28] MEDS: UBIDECARENONE 100 MG PO SCH ×2 (09:37→21:44)
[2015-08-28] MEDS: DABIGATRAN 150 MG PO SCH ×2 (09:37→21:43)
[2015-08-28] MEDS: Acetaminophen 500 MG Tab PO PRN (09:38)
[2015-08-28] MEDS: CALCIUM PO SCH (21:44)
[2015-08-28] MEDS: [UNRECOGNIZED DRUG - OTHER] PO SCH (21:44)
[2015-08-28] MEDS: FOLIC ACID PO SCH (21:44)
[2015-08-28] MEDS: MULTIVITAMINS WITH IRON PO SCH (21:44)
[2015-08-28] MEDS: ZINC GLUCONATE PO SCH (21:45)
[2015-08-28] MEDS: MAGNESIUM OXIDE PO SCH (21:45)
[2015-08-28] MEDS: CALCIUM CARBONATE PO SCH (21:45)
[2015-08-28] MEDS: OMEGA FISH OIL PO SCH (21:45)
[2015-08-29] MEDS: UBIDECARENONE 100 MG PO SCH ×2 (09:16→21:09)
[2015-08-29] MEDS: DABIGATRAN 150 MG PO SCH ×2 (09:16→21:08)
[2015-08-29] MEDS: LEVOTHYROXINE 75 MCG PO SCH (09:16)
[2015-08-29] MEDS: CHOLECALCIFEROL 5000 UNIT PO SCH (09:16)
[2015-08-29] MEDS: MULTIVITAMINS WITH IRON PO SCH (21:08)
[2015-08-29] MEDS: CALCIUM CARBONATE PO SCH (21:08)
[2015-08-29] MEDS: FOLIC ACID PO SCH (21:08)
[2015-08-29] MEDS: MAGNESIUM OXIDE PO SCH (21:08)
[2015-08-29] MEDS: [UNRECOGNIZED DRUG - OTHER] PO SCH (21:08)
[2015-08-29] MEDS: CALCIUM PO SCH (21:08)
[2015-08-29] MEDS: ZINC GLUCONATE PO SCH (21:08)
[2015-08-29] MEDS: OMEGA FISH OIL PO SCH (21:09)
[2015-08-30] MEDS: LEVOTHYROXINE 75 MCG PO SCH ×2 (05:40→07:30)
[2015-08-30] MEDS: DABIGATRAN 150 MG PO SCH ×2 (09:56→19:30)
[2015-08-30] MEDS: CHOLECALCIFEROL 5000 UNIT PO SCH (09:57)
[2015-08-30] MEDS: UBIDECARENONE 100 MG PO SCH ×2 (09:57→19:32)
[2015-08-30] MEDS: Acetaminophen 500 MG Tab PO PRN (10:00)
[2015-08-30] MEDS: MAGNESIUM OXIDE PO SCH (19:30)
[2015-08-30] MEDS: CALCIUM CARBONATE PO SCH (19:30)
[2015-08-30] MEDS: ZINC GLUCONATE PO SCH (19:30)
[2015-08-30] MEDS: OMEGA FISH OIL PO SCH (19:31)
[2015-08-30] MEDS: CALCIUM PO SCH (19:32)
[2015-08-30] MEDS: MULTIVITAMINS WITH IRON PO SCH (19:32)
[2015-08-30] MEDS: FOLIC ACID PO SCH (19:32)
[2015-08-30] MEDS: [UNRECOGNIZED DRUG - OTHER] PO SCH (19:32)
[2015-08-31] MEDS: LEVOTHYROXINE 75 MCG PO SCH (06:04)
[2015-08-31] MEDS: CHOLECALCIFEROL 5000 UNIT PO SCH (08:11)
[2015-08-31] MEDS: UBIDECARENONE 100 MG PO SCH ×2 (08:11→20:02)
[2015-08-31] MEDS: DABIGATRAN 150 MG PO SCH ×2 (08:11→20:03)
[2015-08-31] MEDS: CALCIUM PO SCH (20:02)
[2015-08-31] MEDS: OMEGA FISH OIL PO SCH (20:02)
[2015-08-31] MEDS: ZINC GLUCONATE PO SCH (20:02)
[2015-08-31] MEDS: MAGNESIUM OXIDE PO SCH (20:02)
[2015-08-31] MEDS: CALCIUM CARBONATE PO SCH (20:02)
[2015-08-31] MEDS: FOLIC ACID PO SCH (20:02)
[2015-08-31] MEDS: [UNRECOGNIZED DRUG - OTHER] PO SCH (20:02)
[2015-08-31] MEDS: MULTIVITAMINS WITH IRON PO SCH (20:02)
[2015-09-01] MEDS: DABIGATRAN 150 MG PO SCH ×2 (09:25→20:39)
[2015-09-01] MEDS: UBIDECARENONE 100 MG PO SCH ×2 (09:25→20:38)
[2015-09-01] MEDS: CHOLECALCIFEROL 5000 UNIT PO SCH (09:26)
[2015-09-01] MEDS: Acetaminophen 500 MG Tab PO PRN (12:15)
[2015-09-01] MEDS: OMEGA FISH OIL PO SCH (20:39)
[2015-09-01] MEDS: ZINC GLUCONATE PO SCH (20:39)
[2015-09-01] MEDS: CALCIUM PO SCH (20:39)
[2015-09-01] MEDS: CALCIUM CARBONATE PO SCH (20:39)
[2015-09-01] MEDS: MAGNESIUM OXIDE PO SCH (20:39)
[2015-09-01] MEDS: MULTIVITAMINS WITH IRON PO SCH (20:39)
[2015-09-01] MEDS: FOLIC ACID PO SCH (20:39)
[2015-09-01] MEDS: [UNRECOGNIZED DRUG - OTHER] PO SCH (20:39)
[2015-09-02] MEDS: LEVOTHYROXINE 75 MCG PO SCH (07:21)
[2015-09-02] MEDS: DABIGATRAN 150 MG PO SCH ×2 (09:41→20:32)
[2015-09-02] MEDS: CHOLECALCIFEROL 5000 UNIT PO SCH (09:41)
[2015-09-02] MEDS: UBIDECARENONE 100 MG PO SCH ×2 (09:42→20:31)
[2015-09-02] MEDS: OMEGA FISH OIL PO SCH (20:30)
[2015-09-02] MEDS: MAGNESIUM OXIDE PO SCH (20:30)
[2015-09-02] MEDS: ZINC GLUCONATE PO SCH (20:30)
[2015-09-02] MEDS: CALCIUM CARBONATE PO SCH (20:30)
[2015-09-02] MEDS: CALCIUM PO SCH (20:31)
[2015-09-02] MEDS: [UNRECOGNIZED DRUG - OTHER] PO SCH (20:31)
[2015-09-02] MEDS: MULTIVITAMINS WITH IRON PO SCH (20:31)
[2015-09-02] MEDS: FOLIC ACID PO SCH (20:31)
[2015-09-03] MEDS: LEVOTHYROXINE 75 MCG PO SCH (07:03)
[2015-09-03] MEDS: CHOLECALCIFEROL 5000 UNIT PO SCH (10:20)
[2015-09-03] MEDS: DABIGATRAN 150 MG PO SCH ×2 (10:20→21:31)
[2015-09-03] MEDS: UBIDECARENONE 100 MG PO SCH ×2 (10:20→21:33)
[2015-09-03] MEDS: Acetaminophen 500 MG Tab PO PRN (12:04)
[2015-09-03] MEDS: CALCIUM PO SCH (21:32)
[2015-09-03] MEDS: MULTIVITAMINS WITH IRON PO SCH (21:32)
[2015-09-03] MEDS: ZINC GLUCONATE PO SCH (21:32)
[2015-09-03] MEDS: MAGNESIUM OXIDE PO SCH (21:32)
[2015-09-03] MEDS: CALCIUM CARBONATE PO SCH (21:32)
[2015-09-03] MEDS: FOLIC ACID PO SCH (21:32)
[2015-09-03] MEDS: OMEGA FISH OIL PO SCH (21:32)
[2015-09-03] MEDS: [UNRECOGNIZED DRUG - OTHER] PO SCH (21:32)
[2015-09-04] MEDS: LEVOTHYROXINE 75 MCG PO SCH (06:39)
[2015-09-04] MEDS: CHOLECALCIFEROL 5000 UNIT PO SCH (09:33)
[2015-09-04] MEDS: DABIGATRAN 150 MG PO SCH ×2 (09:34→20:46)
[2015-09-04] MEDS: UBIDECARENONE 100 MG PO SCH ×3 (09:36→20:47)
[2015-09-04] MEDS: Acetaminophen 500 MG Tab PO PRN (09:40)
[2015-09-04] MEDS: CALCIUM CARBONATE PO SCH (20:47)
[2015-09-04] MEDS: CALCIUM PO SCH (20:47)
[2015-09-04] MEDS: [UNRECOGNIZED DRUG - OTHER] PO SCH (20:47)
[2015-09-04] MEDS: MAGNESIUM OXIDE PO SCH (20:47)
[2015-09-04] MEDS: MULTIVITAMINS WITH IRON PO SCH (20:47)
[2015-09-04] MEDS: FOLIC ACID PO SCH (20:47)
[2015-09-04] MEDS: ZINC GLUCONATE PO SCH (20:47)
[2015-09-04] MEDS: OMEGA FISH OIL PO SCH (20:47)
[2015-09-05] MEDS: LEVOTHYROXINE 75 MCG PO SCH (06:44)
[2015-09-05] MEDS: UBIDECARENONE 100 MG PO SCH ×2 (09:45→20:48)
[2015-09-05] MEDS: DABIGATRAN 150 MG PO SCH ×2 (09:45→20:46)
[2015-09-05] MEDS: CHOLECALCIFEROL 5000 UNIT PO SCH (09:45)
[2015-09-05] MEDS: MULTIVITAMINS WITH IRON PO SCH (20:47)
[2015-09-05] MEDS: CALCIUM CARBONATE PO SCH (20:47)
[2015-09-05] MEDS: MAGNESIUM OXIDE PO SCH (20:47)
[2015-09-05] MEDS: FOLIC ACID PO SCH (20:47)
[2015-09-05] MEDS: [UNRECOGNIZED DRUG - OTHER] PO SCH (20:47)
[2015-09-05] MEDS: OMEGA FISH OIL PO SCH (20:47)
[2015-09-05] MEDS: CALCIUM PO SCH (20:47)
[2015-09-05] MEDS: ZINC GLUCONATE PO SCH (20:47)
[2015-09-06] MEDS: LEVOTHYROXINE 75 MCG PO SCH (06:59)
[2015-09-06] MEDS: Acetaminophen 500 MG Tab PO PRN (08:58)
[2015-09-06] MEDS: DABIGATRAN 150 MG PO SCH ×2 (08:58→19:54)
[2015-09-06] MEDS: UBIDECARENONE 100 MG PO SCH ×2 (09:00→19:54)
[2015-09-06] MEDS: CHOLECALCIFEROL 5000 UNIT PO SCH (09:01)
[2015-09-06] MEDS: FOLIC ACID PO SCH (19:54)
[2015-09-06] MEDS: [UNRECOGNIZED DRUG - OTHER] PO SCH (19:54)
[2015-09-06] MEDS: OMEGA FISH OIL PO SCH (19:54)
[2015-09-06] MEDS: CALCIUM PO SCH (19:54)
[2015-09-06] MEDS: MULTIVITAMINS WITH IRON PO SCH (19:54)
[2015-09-06] MEDS: MAGNESIUM OXIDE PO SCH (19:54)
[2015-09-06] MEDS: ZINC GLUCONATE PO SCH (19:54)
[2015-09-06] MEDS: CALCIUM CARBONATE PO SCH (19:54)
[2015-09-07] MEDS: LEVOTHYROXINE 75 MCG PO SCH (06:12)
[2015-09-07] MEDS: UBIDECARENONE 100 MG PO SCH ×2 (09:48→20:33)
[2015-09-07] MEDS: DABIGATRAN 150 MG PO SCH ×2 (09:48→20:33)
[2015-09-07] MEDS: CHOLECALCIFEROL 5000 UNIT PO SCH (09:49)
[2015-09-07] MEDS: OMEGA FISH OIL PO SCH (20:32)
[2015-09-07] MEDS: [UNRECOGNIZED DRUG - OTHER] PO SCH (20:32)
[2015-09-07] MEDS: FOLIC ACID PO SCH (20:32)
[2015-09-07] MEDS: MULTIVITAMINS WITH IRON PO SCH (20:32)
[2015-09-07] MEDS: CALCIUM PO SCH (20:32)
[2015-09-07] MEDS: MAGNESIUM OXIDE PO SCH (20:33)
[2015-09-07] MEDS: CALCIUM CARBONATE PO SCH (20:33)
[2015-09-07] MEDS: ZINC GLUCONATE PO SCH (20:33)
[2015-09-08] MEDS: UBIDECARENONE 100 MG PO SCH ×2 (09:22→20:23)
[2015-09-08] MEDS: CHOLECALCIFEROL 5000 UNIT PO SCH (09:22)
[2015-09-08] MEDS: DABIGATRAN 150 MG PO SCH ×2 (09:22→20:23)
[2015-09-08] MEDS: Acetaminophen 500 MG Tab PO PRN (11:35)
[2015-09-08] MEDS: MAGNESIUM OXIDE PO SCH (20:22)
[2015-09-08] MEDS: OMEGA FISH OIL PO SCH (20:22)
[2015-09-08] MEDS: CALCIUM CARBONATE PO SCH (20:22)
[2015-09-08] MEDS: ZINC GLUCONATE PO SCH (20:22)
[2015-09-08] MEDS: CALCIUM PO SCH (20:23)
[2015-09-08] MEDS: FOLIC ACID PO SCH (20:23)
[2015-09-08] MEDS: MULTIVITAMINS WITH IRON PO SCH (20:23)
[2015-09-08] MEDS: [UNRECOGNIZED DRUG - OTHER] PO SCH (20:23)
[2015-09-09] MEDS: LEVOTHYROXINE 75 MCG PO SCH (06:24)
[2015-09-09] MEDS: UBIDECARENONE 100 MG PO SCH ×2 (08:31→19:39)
[2015-09-09] MEDS: CHOLECALCIFEROL 5000 UNIT PO SCH (08:31)
[2015-09-09] MEDS: DABIGATRAN 150 MG PO SCH ×2 (08:31→19:38)
[2015-09-09] MEDS: OMEGA FISH OIL PO SCH (19:38)
[2015-09-09] MEDS: MAGNESIUM OXIDE PO SCH (19:39)
[2015-09-09] MEDS: ZINC GLUCONATE PO SCH (19:39)
[2015-09-09] MEDS: CALCIUM CARBONATE PO SCH (19:39)
[2015-09-09] MEDS: FOLIC ACID PO SCH (19:39)
[2015-09-09] MEDS: [UNRECOGNIZED DRUG - OTHER] PO SCH (19:39)
[2015-09-09] MEDS: CALCIUM PO SCH (19:39)
[2015-09-09] MEDS: MULTIVITAMINS WITH IRON PO SCH (19:39)
[2015-09-10] MEDS: LEVOTHYROXINE 75 MCG PO SCH (07:25)
[2015-09-10] MEDS: DABIGATRAN 150 MG PO SCH ×2 (09:21→19:49)
[2015-09-10] MEDS: CHOLECALCIFEROL 5000 UNIT PO SCH (09:21)
[2015-09-10] MEDS: UBIDECARENONE 100 MG PO SCH ×2 (09:21→19:50)
--- NOTE | 2015-09-10 09:30 | PN ---
Progress Note for EMILY SHEETS Date: 09/10/2015 Room #: VM.207 SUBJECTIVE: This is an 85-year-old on swing bed, non-skilled. She has been doing good. Her only concern is some vaginal irritation, more so on the outside, not when she urinates. She has been using some Barrier cream and it is helping. Otherwise, she denies any shortness of breath. No leg swelling. She continues to have arthritis in her legs and arms, which affects her mobility. Her moods are pleasant. OBJECTIVE: Vital Signs: Her temperature is 97.5, pulse 75, blood pressure 135/62, respiratory rate 16, O2 93% on room air. General: She is in no acute distress. Heart: Irregularly irregular. Lungs: Sounds clear to auscultation bilaterally without crackles or wheezes. Extremities: Warm and dry. No edema. Mental Status: Alert and oriented x3. ASSESSMENT: 1. Atrial fibrillation with previous transient ischemic attack, on Pradaxa. 2. Hypothyroidism. 3. Chronic leg weakness. 4. Osteoarthritis, controlled. 5. Essential hypertension. 6. Vaginal irritation, possibly atrophic vaginitis. PLAN: At this point, the patient will continue swing bed cares. She will continue using Barrier cream. If her skin irritation continues, we will do a vaginal exam. She may need some Premarin cream or clobetasol. Recertify again in 30 days. MKA: 09/10/2015 09:04:25 MODL: 09/10/2015 09:21:54 /[id number]
[2015-09-10] MEDS: CALCIUM CARBONATE PO SCH (19:48)
[2015-09-10] MEDS: MAGNESIUM OXIDE PO SCH (19:48)
[2015-09-10] MEDS: ZINC GLUCONATE PO SCH (19:48)
[2015-09-10] MEDS: OMEGA FISH OIL PO SCH (19:49)
[2015-09-10] MEDS: FOLIC ACID PO SCH (19:50)
[2015-09-10] MEDS: CALCIUM PO SCH (19:50)
[2015-09-10] MEDS: [UNRECOGNIZED DRUG - OTHER] PO SCH (19:50)
[2015-09-10] MEDS: MULTIVITAMINS WITH IRON PO SCH (19:50)
[2015-09-11] MEDS: CHOLECALCIFEROL 5000 UNIT PO SCH (07:59)
[2015-09-11] MEDS: LEVOTHYROXINE 75 MCG PO SCH (07:59)
[2015-09-11] MEDS: UBIDECARENONE 100 MG PO SCH ×2 (08:00→21:31)
[2015-09-11] MEDS: DABIGATRAN 150 MG PO SCH ×2 (08:00→21:31)
[2015-09-11] MEDS: Acetaminophen 500 MG Tab PO PRN (08:03)
[2015-09-11] MEDS: CALCIUM CARBONATE PO SCH (21:30)
[2015-09-11] MEDS: MAGNESIUM OXIDE PO SCH (21:30)
[2015-09-11] MEDS: ZINC GLUCONATE PO SCH (21:30)
[2015-09-11] MEDS: CALCIUM PO SCH (21:31)
[2015-09-11] MEDS: MULTIVITAMINS WITH IRON PO SCH (21:31)
[2015-09-11] MEDS: FOLIC ACID PO SCH (21:31)
[2015-09-11] MEDS: [UNRECOGNIZED DRUG - OTHER] PO SCH (21:31)
[2015-09-11] MEDS: OMEGA FISH OIL PO SCH (21:31)
[2015-09-12] MEDS: LEVOTHYROXINE 75 MCG PO SCH (07:04)
[2015-09-12] MEDS: DABIGATRAN 150 MG PO SCH ×2 (09:39→21:22)
[2015-09-12] MEDS: CHOLECALCIFEROL 5000 UNIT PO SCH (09:39)
[2015-09-12] MEDS: UBIDECARENONE 100 MG PO SCH ×2 (09:39→21:23)
[2015-09-12] MEDS: FOLIC ACID PO SCH (21:23)
[2015-09-12] MEDS: CALCIUM CARBONATE PO SCH (21:23)
[2015-09-12] MEDS: MAGNESIUM OXIDE PO SCH (21:23)
[2015-09-12] MEDS: [UNRECOGNIZED DRUG - OTHER] PO SCH (21:23)
[2015-09-12] MEDS: OMEGA FISH OIL PO SCH (21:23)
[2015-09-12] MEDS: CALCIUM PO SCH (21:23)
[2015-09-12] MEDS: MULTIVITAMINS WITH IRON PO SCH (21:23)
[2015-09-12] MEDS: ZINC GLUCONATE PO SCH (21:23)
[2015-09-13] MEDS: LEVOTHYROXINE 75 MCG PO SCH (07:06)
[2015-09-13] MEDS: CHOLECALCIFEROL 5000 UNIT PO SCH (09:19)
[2015-09-13] MEDS: UBIDECARENONE 100 MG PO SCH ×2 (09:19→20:45)
[2015-09-13] MEDS: DABIGATRAN 150 MG PO SCH ×2 (09:19→20:44)
[2015-09-13] MEDS: Acetaminophen 500 MG Tab PO PRN (12:08)
[2015-09-13] MEDS: MAGNESIUM OXIDE PO SCH (20:44)
[2015-09-13] MEDS: CALCIUM CARBONATE PO SCH (20:44)
[2015-09-13] MEDS: ZINC GLUCONATE PO SCH (20:44)
[2015-09-13] MEDS: OMEGA FISH OIL PO SCH (20:44)
[2015-09-13] MEDS: MULTIVITAMINS WITH IRON PO SCH (20:45)
[2015-09-13] MEDS: [UNRECOGNIZED DRUG - OTHER] PO SCH (20:45)
[2015-09-13] MEDS: FOLIC ACID PO SCH (20:45)
[2015-09-13] MEDS: CALCIUM PO SCH (20:45)
[2015-09-14] MEDS: LEVOTHYROXINE 75 MCG PO SCH (05:59)
[2015-09-14] MEDS: DABIGATRAN 150 MG PO SCH ×2 (09:19→20:55)
[2015-09-14] MEDS: UBIDECARENONE 100 MG PO SCH ×2 (09:20→20:56)
[2015-09-14] MEDS: CHOLECALCIFEROL 5000 UNIT PO SCH (09:21)
[2015-09-14] MEDS: CALCIUM CARBONATE PO SCH (20:55)
[2015-09-14] MEDS: MAGNESIUM OXIDE PO SCH (20:55)
[2015-09-14] MEDS: ZINC GLUCONATE PO SCH (20:55)
[2015-09-14] MEDS: [UNRECOGNIZED DRUG - OTHER] PO SCH (20:56)
[2015-09-14] MEDS: OMEGA FISH OIL PO SCH (20:56)
[2015-09-14] MEDS: FOLIC ACID PO SCH (20:56)
[2015-09-14] MEDS: CALCIUM PO SCH (20:56)
[2015-09-14] MEDS: MULTIVITAMINS WITH IRON PO SCH (20:56)
[2015-09-15] MEDS: CHOLECALCIFEROL 5000 UNIT PO SCH (09:16)
[2015-09-15] MEDS: UBIDECARENONE 100 MG PO SCH ×2 (09:17→21:46)
[2015-09-15] MEDS: DABIGATRAN 150 MG PO SCH ×2 (09:17→21:45)
[2015-09-15] MEDS: ZINC GLUCONATE PO SCH (21:45)
[2015-09-15] MEDS: MAGNESIUM OXIDE PO SCH (21:45)
[2015-09-15] MEDS: CALCIUM CARBONATE PO SCH (21:45)
[2015-09-15] MEDS: OMEGA FISH OIL PO SCH (21:46)
[2015-09-15] MEDS: FOLIC ACID PO SCH (21:46)
[2015-09-15] MEDS: [UNRECOGNIZED DRUG - OTHER] PO SCH (21:46)
[2015-09-15] MEDS: MULTIVITAMINS WITH IRON PO SCH (21:46)
[2015-09-15] MEDS: CALCIUM PO SCH (21:46)
[2015-09-16] MEDS: LEVOTHYROXINE 75 MCG PO SCH (07:09)
[2015-09-16] MEDS: CHOLECALCIFEROL 5000 UNIT PO SCH (09:29)
[2015-09-16] MEDS: DABIGATRAN 150 MG PO SCH ×2 (09:29→20:02)
[2015-09-16] MEDS: UBIDECARENONE 100 MG PO SCH ×2 (09:29→20:03)
[2015-09-16] MEDS: Acetaminophen 500 MG Tab PO PRN (11:14)
[2015-09-16] MEDS: MAGNESIUM OXIDE PO SCH (20:02)
[2015-09-16] MEDS: CALCIUM CARBONATE PO SCH (20:02)
[2015-09-16] MEDS: CALCIUM PO SCH (20:02)
[2015-09-16] MEDS: MULTIVITAMINS WITH IRON PO SCH (20:02)
[2015-09-16] MEDS: FOLIC ACID PO SCH (20:02)
[2015-09-16] MEDS: OMEGA FISH OIL PO SCH (20:02)
[2015-09-16] MEDS: [UNRECOGNIZED DRUG - OTHER] PO SCH (20:02)
[2015-09-16] MEDS: ZINC GLUCONATE PO SCH (20:02)
[2015-09-17] MEDS: LEVOTHYROXINE 75 MCG PO SCH (06:06)
[2015-09-17] MEDS: DABIGATRAN 150 MG PO SCH ×2 (09:23→21:14)
[2015-09-17] MEDS: CHOLECALCIFEROL 5000 UNIT PO SCH (09:24)
[2015-09-17] MEDS: UBIDECARENONE 100 MG PO SCH ×2 (09:24→21:16)
[2015-09-17] MEDS: MAGNESIUM OXIDE PO SCH (21:03)
[2015-09-17] MEDS: ZINC GLUCONATE PO SCH (21:03)
[2015-09-17] MEDS: CALCIUM CARBONATE PO SCH (21:03)
[2015-09-17] MEDS: OMEGA FISH OIL PO SCH (21:15)
[2015-09-17] MEDS: MULTIVITAMINS WITH IRON PO SCH (21:16)
[2015-09-17] MEDS: FOLIC ACID PO SCH (21:16)
[2015-09-17] MEDS: [UNRECOGNIZED DRUG - OTHER] PO SCH (21:16)
[2015-09-17] MEDS: CALCIUM PO SCH (21:16)
[2015-09-18] MEDS: CHOLECALCIFEROL 5000 UNIT PO SCH (10:26)
[2015-09-18] MEDS: LEVOTHYROXINE 75 MCG PO SCH (10:26)
[2015-09-18] MEDS: UBIDECARENONE 100 MG PO SCH ×2 (10:27→19:47)
[2015-09-18] MEDS: DABIGATRAN 150 MG PO SCH ×2 (10:27→19:46)
[2015-09-18] MEDS: Acetaminophen 500 MG Tab PO PRN (10:30)
[2015-09-18] MEDS: CALCIUM PO SCH (19:46)
[2015-09-18] MEDS: CALCIUM CARBONATE PO SCH (19:46)
[2015-09-18] MEDS: MAGNESIUM OXIDE PO SCH (19:46)
[2015-09-18] MEDS: MULTIVITAMINS WITH IRON PO SCH (19:46)
[2015-09-18] MEDS: FOLIC ACID PO SCH (19:46)
[2015-09-18] MEDS: ZINC GLUCONATE PO SCH (19:46)
[2015-09-18] MEDS: OMEGA FISH OIL PO SCH (19:46)
[2015-09-18] MEDS: [UNRECOGNIZED DRUG - OTHER] PO SCH (19:46)
[2015-09-19] MEDS: LEVOTHYROXINE 75 MCG PO SCH (06:24)
[2015-09-19] MEDS: UBIDECARENONE 100 MG PO SCH ×2 (09:19→20:52)
[2015-09-19] MEDS: DABIGATRAN 150 MG PO SCH ×2 (09:19→20:52)
[2015-09-19] MEDS: CHOLECALCIFEROL 5000 UNIT PO SCH (09:19)
[2015-09-19] MEDS: Acetaminophen 500 MG Tab PO PRN (09:23)
[2015-09-19] MEDS: OMEGA FISH OIL PO SCH (20:52)
[2015-09-19] MEDS: CALCIUM PO SCH (20:52)
[2015-09-19] MEDS: CALCIUM CARBONATE PO SCH (20:52)
[2015-09-19] MEDS: ZINC GLUCONATE PO SCH (20:52)
[2015-09-19] MEDS: [UNRECOGNIZED DRUG - OTHER] PO SCH (20:52)
[2015-09-19] MEDS: MAGNESIUM OXIDE PO SCH (20:52)
[2015-09-19] MEDS: MULTIVITAMINS WITH IRON PO SCH (20:52)
[2015-09-19] MEDS: FOLIC ACID PO SCH (20:52)
[2015-09-20] MEDS: LEVOTHYROXINE 75 MCG PO SCH (06:12)
[2015-09-20] MEDS: DABIGATRAN 150 MG PO SCH ×2 (10:09→20:20)
[2015-09-20] MEDS: UBIDECARENONE 100 MG PO SCH ×2 (10:09→20:21)
[2015-09-20] MEDS: Acetaminophen 500 MG Tab PO PRN (10:09)
[2015-09-20] MEDS: CHOLECALCIFEROL 5000 UNIT PO SCH (10:10)
[2015-09-20] MEDS: ZINC GLUCONATE PO SCH (20:20)
[2015-09-20] MEDS: CALCIUM CARBONATE PO SCH (20:20)
[2015-09-20] MEDS: MAGNESIUM OXIDE PO SCH (20:20)
[2015-09-20] MEDS: OMEGA FISH OIL PO SCH (20:20)
[2015-09-20] MEDS: FOLIC ACID PO SCH (20:21)
[2015-09-20] MEDS: CALCIUM PO SCH (20:21)
[2015-09-20] MEDS: [UNRECOGNIZED DRUG - OTHER] PO SCH (20:21)
[2015-09-20] MEDS: MULTIVITAMINS WITH IRON PO SCH (20:21)
[2015-09-21] MEDS: LEVOTHYROXINE 75 MCG PO SCH (06:00)
[2015-09-21] MEDS: UBIDECARENONE 100 MG PO SCH ×2 (10:13→20:48)
[2015-09-21] MEDS: CHOLECALCIFEROL 5000 UNIT PO SCH (10:14)
[2015-09-21] MEDS: DABIGATRAN 150 MG PO SCH ×2 (10:14→20:48)
[2015-09-21] MEDS: FOLIC ACID PO SCH (20:48)
[2015-09-21] MEDS: ZINC GLUCONATE PO SCH (20:48)
[2015-09-21] MEDS: CALCIUM CARBONATE PO SCH (20:48)
[2015-09-21] MEDS: CALCIUM PO SCH (20:48)
[2015-09-21] MEDS: [UNRECOGNIZED DRUG - OTHER] PO SCH (20:48)
[2015-09-21] MEDS: MULTIVITAMINS WITH IRON PO SCH (20:48)
[2015-09-21] MEDS: MAGNESIUM OXIDE PO SCH (20:48)
[2015-09-21] MEDS: OMEGA FISH OIL PO SCH (20:49)
[2015-09-22] MEDS: DABIGATRAN 150 MG PO SCH ×2 (08:59→20:26)
[2015-09-22] MEDS: CHOLECALCIFEROL 5000 UNIT PO SCH (08:59)
[2015-09-22] MEDS: UBIDECARENONE 100 MG PO SCH ×2 (08:59→20:27)
[2015-09-22] MEDS: ZINC GLUCONATE PO SCH (20:26)
[2015-09-22] MEDS: CALCIUM CARBONATE PO SCH (20:26)
[2015-09-22] MEDS: MAGNESIUM OXIDE PO SCH (20:26)
[2015-09-22] MEDS: OMEGA FISH OIL PO SCH (20:26)
[2015-09-22] MEDS: FOLIC ACID PO SCH (20:27)
[2015-09-22] MEDS: MULTIVITAMINS WITH IRON PO SCH (20:27)
[2015-09-22] MEDS: CALCIUM PO SCH (20:27)
[2015-09-22] MEDS: [UNRECOGNIZED DRUG - OTHER] PO SCH (20:27)
[2015-09-23] MEDS: LEVOTHYROXINE 75 MCG PO SCH (06:22)
[2015-09-23] MEDS: CHOLECALCIFEROL 5000 UNIT PO SCH (09:15)
[2015-09-23] MEDS: DABIGATRAN 150 MG PO SCH ×2 (09:15→21:05)
[2015-09-23] MEDS: UBIDECARENONE 100 MG PO SCH ×2 (09:15→21:04)
[2015-09-23] MEDS: MAGNESIUM OXIDE PO SCH (21:05)
[2015-09-23] MEDS: OMEGA FISH OIL PO SCH (21:05)
[2015-09-23] MEDS: CALCIUM CARBONATE PO SCH (21:05)
[2015-09-23] MEDS: ZINC GLUCONATE PO SCH (21:05)
[2015-09-23] MEDS: [UNRECOGNIZED DRUG - OTHER] PO SCH (21:06)
[2015-09-23] MEDS: FOLIC ACID PO SCH (21:06)
[2015-09-23] MEDS: MULTIVITAMINS WITH IRON PO SCH (21:06)
[2015-09-23] MEDS: CALCIUM PO SCH (21:06)
[2015-09-24] MEDS: LEVOTHYROXINE 75 MCG PO SCH (06:47)
[2015-09-24] MEDS: CHOLECALCIFEROL 5000 UNIT PO SCH (09:37)
[2015-09-24] MEDS: DABIGATRAN 150 MG PO SCH ×2 (09:37→22:02)
[2015-09-24] MEDS: UBIDECARENONE 100 MG PO SCH ×2 (09:37→22:03)
[2015-09-24] MEDS: Acetaminophen 500 MG Tab PO PRN (09:40)
[2015-09-24] MEDS: CALCIUM CARBONATE PO SCH (22:02)
[2015-09-24] MEDS: OMEGA FISH OIL PO SCH (22:02)
[2015-09-24] MEDS: MAGNESIUM OXIDE PO SCH (22:02)
[2015-09-24] MEDS: ZINC GLUCONATE PO SCH (22:02)
[2015-09-24] MEDS: FOLIC ACID PO SCH (22:03)
[2015-09-24] MEDS: [UNRECOGNIZED DRUG - OTHER] PO SCH (22:03)
[2015-09-24] MEDS: CALCIUM PO SCH (22:03)
[2015-09-24] MEDS: MULTIVITAMINS WITH IRON PO SCH (22:03)
[2015-09-25] MEDS: CHOLECALCIFEROL 5000 UNIT PO SCH (08:27)
[2015-09-25] MEDS: UBIDECARENONE 100 MG PO SCH ×2 (08:27→20:42)
[2015-09-25] MEDS: LEVOTHYROXINE 75 MCG PO SCH (08:28)
[2015-09-25] MEDS: DABIGATRAN 150 MG PO SCH ×2 (08:28→20:42)
[2015-09-25] MEDS: CALCIUM PO SCH (20:42)
[2015-09-25] MEDS: [UNRECOGNIZED DRUG - OTHER] PO SCH (20:42)
[2015-09-25] MEDS: MULTIVITAMINS WITH IRON PO SCH (20:42)
[2015-09-25] MEDS: OMEGA FISH OIL PO SCH (20:42)
[2015-09-25] MEDS: ZINC GLUCONATE PO SCH (20:42)
[2015-09-25] MEDS: FOLIC ACID PO SCH (20:42)
[2015-09-25] MEDS: MAGNESIUM OXIDE PO SCH (20:42)
[2015-09-25] MEDS: CALCIUM CARBONATE PO SCH (20:42)
[2015-09-26] MEDS: LEVOTHYROXINE 75 MCG PO SCH ×2 (05:39→06:11)
[2015-09-26] MEDS: DABIGATRAN 150 MG PO SCH ×2 (08:59→22:03)
[2015-09-26] MEDS: UBIDECARENONE 100 MG PO SCH ×2 (09:00→22:04)
[2015-09-26] MEDS: CHOLECALCIFEROL 5000 UNIT PO SCH (09:00)
[2015-09-26] MEDS: Acetaminophen 500 MG Tab PO PRN (10:15)
[2015-09-26] MEDS: MAGNESIUM OXIDE PO SCH (22:04)
[2015-09-26] MEDS: CALCIUM CARBONATE PO SCH (22:04)
[2015-09-26] MEDS: ZINC GLUCONATE PO SCH (22:04)
[2015-09-26] MEDS: OMEGA FISH OIL PO SCH (22:04)
[2015-09-26] MEDS: [UNRECOGNIZED DRUG - OTHER] PO SCH (22:04)
[2015-09-26] MEDS: FOLIC ACID PO SCH (22:04)
[2015-09-26] MEDS: CALCIUM PO SCH (22:04)
[2015-09-26] MEDS: MULTIVITAMINS WITH IRON PO SCH (22:04)
[2015-09-27] MEDS: LEVOTHYROXINE 75 MCG PO SCH ×2 (05:38→06:28)
[2015-09-27] MEDS: UBIDECARENONE 100 MG PO SCH ×2 (09:27→20:42)
[2015-09-27] MEDS: CHOLECALCIFEROL 5000 UNIT PO SCH (09:27)
[2015-09-27] MEDS: DABIGATRAN 150 MG PO SCH ×2 (09:28→20:41)
[2015-09-27] MEDS: OMEGA FISH OIL PO SCH (20:41)
[2015-09-27] MEDS: ZINC GLUCONATE PO SCH (20:41)
[2015-09-27] MEDS: MAGNESIUM OXIDE PO SCH (20:41)
[2015-09-27] MEDS: CALCIUM CARBONATE PO SCH (20:41)
[2015-09-27] MEDS: [UNRECOGNIZED DRUG - OTHER] PO SCH (20:42)
[2015-09-27] MEDS: MULTIVITAMINS WITH IRON PO SCH (20:42)
[2015-09-27] MEDS: CALCIUM PO SCH (20:42)
[2015-09-27] MEDS: FOLIC ACID PO SCH (20:42)
[2015-09-28] MEDS: LEVOTHYROXINE 75 MCG PO SCH (06:21)
[2015-09-28] MEDS: UBIDECARENONE 100 MG PO SCH ×2 (10:04→20:09)
[2015-09-28] MEDS: DABIGATRAN 150 MG PO SCH ×2 (10:04→20:09)
[2015-09-28] MEDS: CHOLECALCIFEROL 5000 UNIT PO SCH (10:05)
[2015-09-28] MEDS: ZINC GLUCONATE PO SCH (20:09)
[2015-09-28] MEDS: MAGNESIUM OXIDE PO SCH (20:09)
[2015-09-28] MEDS: CALCIUM PO SCH (20:09)
[2015-09-28] MEDS: CALCIUM CARBONATE PO SCH (20:09)
[2015-09-28] MEDS: MULTIVITAMINS WITH IRON PO SCH (20:09)
[2015-09-28] MEDS: OMEGA FISH OIL PO SCH (20:09)
[2015-09-28] MEDS: [UNRECOGNIZED DRUG - OTHER] PO SCH (20:09)
[2015-09-28] MEDS: FOLIC ACID PO SCH (20:09)
[2015-09-29] MEDS: DABIGATRAN 150 MG PO SCH ×2 (09:41→19:45)
[2015-09-29] MEDS: CHOLECALCIFEROL 5000 UNIT PO SCH (09:42)
[2015-09-29] MEDS: UBIDECARENONE 100 MG PO SCH ×2 (09:42→19:45)
[2015-09-29] MEDS: FOLIC ACID PO SCH (19:46)
[2015-09-29] MEDS: [UNRECOGNIZED DRUG - OTHER] PO SCH (19:46)
[2015-09-29] MEDS: CALCIUM PO SCH (19:46)
[2015-09-29] MEDS: OMEGA FISH OIL PO SCH (19:46)
[2015-09-29] MEDS: MAGNESIUM OXIDE PO SCH (19:46)
[2015-09-29] MEDS: CALCIUM CARBONATE PO SCH (19:46)
[2015-09-29] MEDS: ZINC GLUCONATE PO SCH (19:46)
[2015-09-29] MEDS: MULTIVITAMINS WITH IRON PO SCH (19:46)
[2015-09-30] MEDS: LEVOTHYROXINE 75 MCG PO SCH (06:15)
[2015-09-30] MEDS: DABIGATRAN 150 MG PO SCH ×2 (08:23→19:55)
[2015-09-30] MEDS: CHOLECALCIFEROL 5000 UNIT PO SCH (08:24)
[2015-09-30] MEDS: UBIDECARENONE 100 MG PO SCH ×2 (08:24→19:54)
[2015-09-30] MEDS: Acetaminophen 500 MG Tab PO PRN (08:27)
[2015-09-30] MEDS: FOLIC ACID PO SCH (19:54)
[2015-09-30] MEDS: MULTIVITAMINS WITH IRON PO SCH (19:54)
[2015-09-30] MEDS: CALCIUM CARBONATE PO SCH (19:54)
[2015-09-30] MEDS: MAGNESIUM OXIDE PO SCH (19:54)
[2015-09-30] MEDS: ZINC GLUCONATE PO SCH (19:54)
[2015-09-30] MEDS: [UNRECOGNIZED DRUG - OTHER] PO SCH (19:54)
[2015-09-30] MEDS: CALCIUM PO SCH (19:54)
[2015-09-30] MEDS: OMEGA FISH OIL PO SCH (19:55)
[2015-10-01] MEDS: LEVOTHYROXINE 75 MCG PO SCH (06:18)
[2015-10-01] MEDS: UBIDECARENONE 100 MG PO SCH ×2 (09:54→20:46)
[2015-10-01] MEDS: DABIGATRAN 150 MG PO SCH ×2 (09:55→20:45)
[2015-10-01] MEDS: CHOLECALCIFEROL 5000 UNIT PO SCH (09:55)
[2015-10-01] MEDS: Acetaminophen 500 MG Tab PO PRN (10:02)
[2015-10-01] MEDS: ZINC GLUCONATE PO SCH (20:45)
[2015-10-01] MEDS: MAGNESIUM OXIDE PO SCH (20:45)
[2015-10-01] MEDS: CALCIUM CARBONATE PO SCH (20:45)
[2015-10-01] MEDS: FOLIC ACID PO SCH (20:46)
[2015-10-01] MEDS: OMEGA FISH OIL PO SCH (20:46)
[2015-10-01] MEDS: CALCIUM PO SCH (20:46)
[2015-10-01] MEDS: MULTIVITAMINS WITH IRON PO SCH (20:46)
[2015-10-01] MEDS: [UNRECOGNIZED DRUG - OTHER] PO SCH (20:46)
[2015-10-02] MEDS: LEVOTHYROXINE 75 MCG PO SCH (06:37)
[2015-10-02] MEDS: DABIGATRAN 150 MG PO SCH ×2 (09:31→20:04)
[2015-10-02] MEDS: UBIDECARENONE 100 MG PO SCH ×2 (09:32→20:04)
[2015-10-02] MEDS: CHOLECALCIFEROL 5000 UNIT PO SCH (09:32)
[2015-10-02] MEDS: Acetaminophen 500 MG Tab PO PRN (11:00)
[2015-10-02] MEDS: CALCIUM CARBONATE PO SCH (20:03)
[2015-10-02] MEDS: MAGNESIUM OXIDE PO SCH (20:03)
[2015-10-02] MEDS: ZINC GLUCONATE PO SCH (20:03)
[2015-10-02] MEDS: OMEGA FISH OIL PO SCH (20:04)
[2015-10-02] MEDS: CALCIUM PO SCH (20:04)
[2015-10-02] MEDS: FOLIC ACID PO SCH (20:04)
[2015-10-02] MEDS: [UNRECOGNIZED DRUG - OTHER] PO SCH (20:04)
[2015-10-02] MEDS: MULTIVITAMINS WITH IRON PO SCH (20:04)
[2015-10-03] MEDS: LEVOTHYROXINE 75 MCG PO SCH (06:07)
[2015-10-03] MEDS: DABIGATRAN 150 MG PO SCH ×2 (09:05→20:24)
[2015-10-03] MEDS: CHOLECALCIFEROL 5000 UNIT PO SCH (09:05)
[2015-10-03] MEDS: UBIDECARENONE 100 MG PO SCH ×2 (09:05→20:25)
[2015-10-03] MEDS: Acetaminophen 500 MG Tab PO PRN (09:09)
[2015-10-03] MEDS: ZINC GLUCONATE PO SCH (20:24)
[2015-10-03] MEDS: CALCIUM CARBONATE PO SCH (20:24)
[2015-10-03] MEDS: MAGNESIUM OXIDE PO SCH (20:24)
[2015-10-03] MEDS: OMEGA FISH OIL PO SCH (20:24)
[2015-10-03] MEDS: MULTIVITAMINS WITH IRON PO SCH (20:25)
[2015-10-03] MEDS: CALCIUM PO SCH (20:25)
[2015-10-03] MEDS: [UNRECOGNIZED DRUG - OTHER] PO SCH (20:25)
[2015-10-03] MEDS: FOLIC ACID PO SCH (20:25)
[2015-10-04] MEDS: LEVOTHYROXINE 75 MCG PO SCH ×2 (05:42→06:28)
[2015-10-04] MEDS: Acetaminophen 500 MG Tab PO PRN (09:06)
[2015-10-04] MEDS: DABIGATRAN 150 MG PO SCH ×2 (09:07→19:27)
[2015-10-04] MEDS: UBIDECARENONE 100 MG PO SCH ×2 (09:07→19:28)
[2015-10-04] MEDS: CHOLECALCIFEROL 5000 UNIT PO SCH (09:07)
[2015-10-04] MEDS: ZINC GLUCONATE PO SCH (19:27)
[2015-10-04] MEDS: CALCIUM CARBONATE PO SCH (19:27)
[2015-10-04] MEDS: MAGNESIUM OXIDE PO SCH (19:27)
[2015-10-04] MEDS: OMEGA FISH OIL PO SCH (19:28)
[2015-10-04] MEDS: [UNRECOGNIZED DRUG - OTHER] PO SCH (19:28)
[2015-10-04] MEDS: FOLIC ACID PO SCH (19:28)
[2015-10-04] MEDS: MULTIVITAMINS WITH IRON PO SCH (19:28)
[2015-10-04] MEDS: CALCIUM PO SCH (19:28)
[2015-10-05] MEDS: LEVOTHYROXINE 75 MCG PO SCH ×2 (05:34→06:30)
[2015-10-05] MEDS: Acetaminophen 500 MG Tab PO PRN (10:16)
[2015-10-05] MEDS: DABIGATRAN 150 MG PO SCH ×2 (10:16→21:38)
[2015-10-05] MEDS: UBIDECARENONE 100 MG PO SCH ×2 (10:18→21:38)
[2015-10-05] MEDS: CHOLECALCIFEROL 5000 UNIT PO SCH (10:19)
[2015-10-05] MEDS: OMEGA FISH OIL PO SCH (21:36)
[2015-10-05] MEDS: MAGNESIUM OXIDE PO SCH (21:37)
[2015-10-05] MEDS: MULTIVITAMINS WITH IRON PO SCH (21:37)
[2015-10-05] MEDS: CALCIUM PO SCH (21:37)
[2015-10-05] MEDS: FOLIC ACID PO SCH (21:37)
[2015-10-05] MEDS: ZINC GLUCONATE PO SCH (21:37)
[2015-10-05] MEDS: CALCIUM CARBONATE PO SCH (21:37)
[2015-10-05] MEDS: [UNRECOGNIZED DRUG - OTHER] PO SCH (21:37)
[2015-10-06] MEDS: DABIGATRAN 150 MG PO SCH ×2 (10:00→20:52)
[2015-10-06] MEDS: Acetaminophen 500 MG Tab PO PRN (10:01)
[2015-10-06] MEDS: UBIDECARENONE 100 MG PO SCH ×2 (10:03→20:51)
[2015-10-06] MEDS: CHOLECALCIFEROL 5000 UNIT PO SCH (10:04)
[2015-10-06] MEDS: ZINC GLUCONATE PO SCH (20:51)
[2015-10-06] MEDS: OMEGA FISH OIL PO SCH (20:51)
[2015-10-06] MEDS: CALCIUM CARBONATE PO SCH (20:51)
[2015-10-06] MEDS: FOLIC ACID PO SCH (20:51)
[2015-10-06] MEDS: CALCIUM PO SCH (20:51)
[2015-10-06] MEDS: MAGNESIUM OXIDE PO SCH (20:51)
[2015-10-06] MEDS: MULTIVITAMINS WITH IRON PO SCH (20:51)
[2015-10-06] MEDS: [UNRECOGNIZED DRUG - OTHER] PO SCH (20:51)
[2015-10-07] MEDS: LEVOTHYROXINE 75 MCG PO SCH (07:43)
[2015-10-07] MEDS: CHOLECALCIFEROL 5000 UNIT PO SCH (07:43)
[2015-10-07] MEDS: DABIGATRAN 150 MG PO SCH ×2 (07:44→23:12)
[2015-10-07] MEDS: Acetaminophen 500 MG Tab PO PRN (07:45)
[2015-10-07] MEDS: UBIDECARENONE 100 MG PO SCH ×2 (07:45→23:12)
[2015-10-07] MEDS: [UNRECOGNIZED DRUG - OTHER] PO SCH (23:12)
[2015-10-07] MEDS: MAGNESIUM OXIDE PO SCH (23:12)
[2015-10-07] MEDS: FOLIC ACID PO SCH (23:12)
[2015-10-07] MEDS: CALCIUM CARBONATE PO SCH (23:12)
[2015-10-07] MEDS: CALCIUM PO SCH (23:12)
[2015-10-07] MEDS: OMEGA FISH OIL PO SCH (23:12)
[2015-10-07] MEDS: MULTIVITAMINS WITH IRON PO SCH (23:12)
[2015-10-07] MEDS: ZINC GLUCONATE PO SCH (23:12)
[2015-10-08] MEDS: LEVOTHYROXINE 75 MCG PO SCH (06:17)
[2015-10-08] MEDS: UBIDECARENONE 100 MG PO SCH ×3 (10:34→18:42)
[2015-10-08] MEDS: DABIGATRAN 150 MG PO SCH ×3 (10:34→18:43)
[2015-10-08] MEDS: CHOLECALCIFEROL 5000 UNIT PO SCH (10:35)
[2015-10-08] MEDS: CALCIUM CARBONATE PO SCH ×2 (18:04→18:41)
[2015-10-08] MEDS: ZINC GLUCONATE PO SCH ×2 (18:04→18:41)
[2015-10-08] MEDS: MAGNESIUM OXIDE PO SCH ×2 (18:04→18:41)
[2015-10-08] MEDS: OMEGA FISH OIL PO SCH ×2 (18:04→18:41)
[2015-10-08] MEDS: CALCIUM PO SCH (18:05)
[2015-10-08] MEDS: MULTIVITAMINS WITH IRON PO SCH (18:05)
[2015-10-08] MEDS: FOLIC ACID PO SCH (18:05)
[2015-10-08] MEDS: [UNRECOGNIZED DRUG - OTHER] PO SCH (18:05)
[2015-10-08] MEDS: [UNRECOGNIZED DRUG - OTHER] PO SCH (18:41)
[2015-10-09] MEDS: LEVOTHYROXINE 75 MCG PO SCH (06:35)
[2015-10-09] MEDS: CHOLECALCIFEROL 5000 UNIT PO SCH (08:29)
[2015-10-09] MEDS: DABIGATRAN 150 MG PO SCH ×2 (08:30→18:24)
[2015-10-09] MEDS: UBIDECARENONE 100 MG PO SCH ×2 (08:31→18:23)
[2015-10-09] MEDS: Acetaminophen 500 MG Tab PO PRN (08:31)
[2015-10-09] MEDS: MAGNESIUM OXIDE PO SCH (18:23)
[2015-10-09] MEDS: ZINC GLUCONATE PO SCH (18:23)
[2015-10-09] MEDS: [UNRECOGNIZED DRUG - OTHER] PO SCH (18:23)
[2015-10-09] MEDS: OMEGA FISH OIL PO SCH (18:23)
[2015-10-09] MEDS: CALCIUM CARBONATE PO SCH (18:23)
[2015-10-10] MEDS: LEVOTHYROXINE 75 MCG PO SCH (05:59)
[2015-10-10] MEDS: DABIGATRAN 150 MG PO SCH ×2 (09:07→18:11)
[2015-10-10] MEDS: UBIDECARENONE 100 MG PO SCH ×2 (09:08→18:11)
[2015-10-10] MEDS: CHOLECALCIFEROL 5000 UNIT PO SCH (09:08)
[2015-10-10] MEDS: Acetaminophen 500 MG Tab PO PRN (09:45)
[2015-10-10] MEDS: OMEGA FISH OIL PO SCH (18:11)
[2015-10-10] MEDS: [UNRECOGNIZED DRUG - OTHER] PO SCH (18:11)
[2015-10-10] MEDS: MAGNESIUM OXIDE PO SCH (18:12)
[2015-10-10] MEDS: CALCIUM CARBONATE PO SCH (18:12)
[2015-10-10] MEDS: ZINC GLUCONATE PO SCH (18:12)
[2015-10-11] MEDS: LEVOTHYROXINE 75 MCG PO SCH (06:20)
[2015-10-11] MEDS: UBIDECARENONE 100 MG PO SCH ×2 (09:20→18:48)
[2015-10-11] MEDS: CHOLECALCIFEROL 5000 UNIT PO SCH (09:20)
[2015-10-11] MEDS: DABIGATRAN 150 MG PO SCH ×2 (09:20→18:47)
[2015-10-11] MEDS: Acetaminophen 500 MG Tab PO PRN (09:22)
[2015-10-11] MEDS: CALCIUM CARBONATE PO SCH (18:46)
[2015-10-11] MEDS: MAGNESIUM OXIDE PO SCH (18:46)
[2015-10-11] MEDS: ZINC GLUCONATE PO SCH (18:46)
[2015-10-11] MEDS: [UNRECOGNIZED DRUG - OTHER] PO SCH (18:47)
[2015-10-11] MEDS: OMEGA FISH OIL PO SCH (18:47)
[2015-10-12] MEDS: LEVOTHYROXINE 75 MCG PO SCH (06:07)
[2015-10-12] MEDS: Acetaminophen 500 MG Tab PO PRN (09:43)
[2015-10-12] MEDS: CHOLECALCIFEROL 5000 UNIT PO SCH (09:43)
[2015-10-12] MEDS: DABIGATRAN 150 MG PO SCH ×2 (09:43→18:36)
[2015-10-12] MEDS: UBIDECARENONE 100 MG PO SCH ×2 (09:43→18:35)
[2015-10-12] MEDS: [UNRECOGNIZED DRUG - OTHER] PO SCH (18:35)
[2015-10-12] MEDS: OMEGA FISH OIL PO SCH (18:35)
[2015-10-12] MEDS: CALCIUM CARBONATE PO SCH (18:36)
[2015-10-12] MEDS: ZINC GLUCONATE PO SCH (18:36)
[2015-10-12] MEDS: MAGNESIUM OXIDE PO SCH (18:36)
--- NOTE | 2015-10-12 21:37 | PN ---
Progress Note for EMILY SHEETS Date: 10/12/2015 Room #: VM.207 SUBJECTIVE: This is an 85-year-old on swing bed, non-skilled due to arthritis in her arms and legs limiting her mobility. The patient's mood continue to be pleasant. Her only concern is some vaginal irritation that has been going on for a month. She has been using some barrier cream, which helps. She denies any urgency or burning with urination. OBJECTIVE: Vital Signs: Temperature 97.6, pulse 66, blood pressure 134/77, respiratory rate 20, O2 is 94% on room air. General: She is in no acute distress. Heart: Irregularly irregular. Lungs: Sounds are clear to auscultation bilaterally without crackles or wheezes. Abdomen: Positive bowel sounds. Soft and nontender. Extremities: Warm and dry. No edema. Mental Status: Alert and oriented x3. Vaginal: Vulvar exam does show her to have some swollen vulva with no redness or discharge. ASSESSMENT: 1. Vaginitis, probably atrophic. At this point, we are going to try some clobetasol cream twice daily for 2 weeks. 2. Atrial fibrillation with previous transient ischemic attack on Pradaxa. 3. Mild thrombocytopenia. We will repeat lab work in the next 2-3 months. 4. Chronic leg weakness. 5. Osteoarthritis, pain is controlled. 6. Essential hypertension, controlled. PLAN: At this point, the patient will continue on swing bed cares. I did okay her to have 1 beer with pizza. She is only planning to do this intermittently. Re-certify again in 30 days. MKA: 10/12/2015 21:17:10 MODL: 10/12/2015 21:31:23 /[id number]
[2015-10-13] MEDS: DABIGATRAN 150 MG PO SCH ×2 (09:27→18:15)
[2015-10-13] MEDS: CHOLECALCIFEROL 5000 UNIT PO SCH (09:27)
[2015-10-13] MEDS: UBIDECARENONE 100 MG PO SCH ×2 (09:27→18:16)
[2015-10-13] MEDS: Acetaminophen 500 MG Tab PO PRN (09:28)
[2015-10-13] MEDS: Clobetasol 0.05% Crm 30 GM Tube TOP SCH (18:15)
[2015-10-13] MEDS: MAGNESIUM OXIDE PO SCH (18:16)
[2015-10-13] MEDS: OMEGA FISH OIL PO SCH (18:16)
[2015-10-13] MEDS: ZINC GLUCONATE PO SCH (18:16)
[2015-10-13] MEDS: CALCIUM CARBONATE PO SCH (18:16)
[2015-10-13] MEDS: [UNRECOGNIZED DRUG - OTHER] PO SCH (18:16)
[2015-10-14] MEDS: LEVOTHYROXINE 75 MCG PO SCH ×2 (05:35→07:11)
[2015-10-14] MEDS: DABIGATRAN 150 MG PO SCH ×2 (09:21→18:10)
[2015-10-14] MEDS: UBIDECARENONE 100 MG PO SCH ×2 (09:22→18:11)
[2015-10-14] MEDS: CHOLECALCIFEROL 5000 UNIT PO SCH (09:22)
[2015-10-14] MEDS: Clobetasol 0.05% Crm 30 GM Tube TOP SCH ×2 (09:23→18:12)
[2015-10-14] MEDS: Acetaminophen 500 MG Tab PO PRN (09:24)
[2015-10-14] MEDS: OMEGA FISH OIL PO SCH (18:11)
[2015-10-14] MEDS: [UNRECOGNIZED DRUG - OTHER] PO SCH (18:11)
[2015-10-14] MEDS: CALCIUM CARBONATE PO SCH (18:11)
[2015-10-14] MEDS: ZINC GLUCONATE PO SCH (18:11)
[2015-10-14] MEDS: MAGNESIUM OXIDE PO SCH (18:11)
[2015-10-15] MEDS: LEVOTHYROXINE 75 MCG PO SCH (06:34)
[2015-10-15] MEDS: CHOLECALCIFEROL 5000 UNIT PO SCH (09:21)
[2015-10-15] MEDS: DABIGATRAN 150 MG PO SCH ×2 (09:21→18:06)
[2015-10-15] MEDS: UBIDECARENONE 100 MG PO SCH ×2 (09:22→18:06)
[2015-10-15] MEDS: Clobetasol 0.05% Crm 30 GM Tube TOP SCH ×2 (09:22→18:05)
[2015-10-15] MEDS: Acetaminophen 500 MG Tab PO PRN (09:25)
[2015-10-15] MEDS: MAGNESIUM OXIDE PO SCH (18:06)
[2015-10-15] MEDS: [UNRECOGNIZED DRUG - OTHER] PO SCH (18:06)
[2015-10-15] MEDS: CALCIUM CARBONATE PO SCH (18:06)
[2015-10-15] MEDS: ZINC GLUCONATE PO SCH (18:06)
[2015-10-15] MEDS: OMEGA FISH OIL PO SCH (18:06)
[2015-10-16] MEDS: LEVOTHYROXINE 75 MCG PO SCH (06:10)
[2015-10-16] MEDS: DABIGATRAN 150 MG PO SCH ×2 (09:30→18:15)
[2015-10-16] MEDS: CHOLECALCIFEROL 5000 UNIT PO SCH (09:31)
[2015-10-16] MEDS: Clobetasol 0.05% Crm 30 GM Tube TOP SCH ×2 (09:31→18:17)
[2015-10-16] MEDS: UBIDECARENONE 100 MG PO SCH ×2 (09:31→18:16)
[2015-10-16] MEDS: Acetaminophen 500 MG Tab PO PRN (09:42)
[2015-10-16] MEDS: MAGNESIUM OXIDE PO SCH (18:16)
[2015-10-16] MEDS: [UNRECOGNIZED DRUG - OTHER] PO SCH (18:16)
[2015-10-16] MEDS: ZINC GLUCONATE PO SCH (18:16)
[2015-10-16] MEDS: CALCIUM CARBONATE PO SCH (18:16)
[2015-10-16] MEDS: OMEGA FISH OIL PO SCH (18:16)
[2015-10-17] MEDS: LEVOTHYROXINE 75 MCG PO SCH (06:16)
[2015-10-17] MEDS: CHOLECALCIFEROL 5000 UNIT PO SCH (08:57)
[2015-10-17] MEDS: Acetaminophen 500 MG Tab PO PRN (08:57)
[2015-10-17] MEDS: UBIDECARENONE 100 MG PO SCH ×2 (08:57→18:10)
[2015-10-17] MEDS: Clobetasol 0.05% Crm 30 GM Tube TOP SCH ×2 (08:57→18:11)
[2015-10-17] MEDS: DABIGATRAN 150 MG PO SCH ×2 (08:57→18:10)
[2015-10-17] MEDS: [UNRECOGNIZED DRUG - OTHER] PO SCH (18:09)
[2015-10-17] MEDS: CALCIUM CARBONATE PO SCH (18:10)
[2015-10-17] MEDS: OMEGA FISH OIL PO SCH (18:10)
[2015-10-17] MEDS: ZINC GLUCONATE PO SCH (18:10)
[2015-10-17] MEDS: MAGNESIUM OXIDE PO SCH (18:10)
[2015-10-18] MEDS: LEVOTHYROXINE 75 MCG PO SCH ×2 (05:40→06:18)
[2015-10-18] MEDS: UBIDECARENONE 100 MG PO SCH ×2 (09:16→19:28)
[2015-10-18] MEDS: DABIGATRAN 150 MG PO SCH ×2 (09:16→19:27)
[2015-10-18] MEDS: CHOLECALCIFEROL 5000 UNIT PO SCH (09:17)
[2015-10-18] MEDS: Clobetasol 0.05% Crm 30 GM Tube TOP SCH ×2 (09:18→19:23)
[2015-10-18] MEDS: CALCIUM CARBONATE PO SCH (19:23)
[2015-10-18] MEDS: MAGNESIUM OXIDE PO SCH (19:23)
[2015-10-18] MEDS: ZINC GLUCONATE PO SCH (19:23)
[2015-10-18] MEDS: OMEGA FISH OIL PO SCH (19:27)
[2015-10-18] MEDS: [UNRECOGNIZED DRUG - OTHER] PO SCH (19:28)
[2015-10-19] MEDS: LEVOTHYROXINE 75 MCG PO SCH ×2 (05:56→06:15)
[2015-10-19] MEDS: CHOLECALCIFEROL 5000 UNIT PO SCH (09:20)
[2015-10-19] MEDS: DABIGATRAN 150 MG PO SCH ×2 (09:20→18:01)
[2015-10-19] MEDS: UBIDECARENONE 100 MG PO SCH ×2 (09:21→18:02)
[2015-10-19] MEDS: Clobetasol 0.05% Crm 30 GM Tube TOP SCH ×2 (09:21→22:57)
[2015-10-19] MEDS: Acetaminophen 500 MG Tab PO PRN (09:24)
[2015-10-19] MEDS: OMEGA FISH OIL PO SCH (18:02)
[2015-10-19] MEDS: [UNRECOGNIZED DRUG - OTHER] PO SCH (18:02)
[2015-10-19] MEDS: MAGNESIUM OXIDE PO SCH (18:03)
[2015-10-19] MEDS: CALCIUM CARBONATE PO SCH (18:03)
[2015-10-19] MEDS: ZINC GLUCONATE PO SCH (18:03)
[2015-10-20] MEDS: CHOLECALCIFEROL 5000 UNIT PO SCH (11:07)
[2015-10-20] MEDS: Clobetasol 0.05% Crm 30 GM Tube TOP SCH ×2 (11:08→18:47)
[2015-10-20] MEDS: DABIGATRAN 150 MG PO SCH ×2 (11:09→18:47)
[2015-10-20] MEDS: UBIDECARENONE 100 MG PO SCH ×2 (11:09→18:46)
[2015-10-20] MEDS: Acetaminophen 500 MG Tab PO PRN (11:10)
[2015-10-20] MEDS: CALCIUM CARBONATE PO SCH (18:46)
[2015-10-20] MEDS: MAGNESIUM OXIDE PO SCH (18:46)
[2015-10-20] MEDS: [UNRECOGNIZED DRUG - OTHER] PO SCH (18:46)
[2015-10-20] MEDS: ZINC GLUCONATE PO SCH (18:46)
[2015-10-20] MEDS: OMEGA FISH OIL PO SCH (18:48)
[2015-10-21] MEDS: LEVOTHYROXINE 75 MCG PO SCH (06:23)
[2015-10-21] MEDS: DABIGATRAN 150 MG PO SCH ×2 (09:21→18:01)
[2015-10-21] MEDS: Acetaminophen 500 MG Tab PO PRN (09:21)
[2015-10-21] MEDS: UBIDECARENONE 100 MG PO SCH ×2 (09:22→18:01)
[2015-10-21] MEDS: CHOLECALCIFEROL 5000 UNIT PO SCH (09:22)
[2015-10-21] MEDS: Clobetasol 0.05% Crm 30 GM Tube TOP SCH ×2 (09:22→18:01)
[2015-10-21] MEDS: CALCIUM CARBONATE PO SCH (18:01)
[2015-10-21] MEDS: OMEGA FISH OIL PO SCH (18:01)
[2015-10-21] MEDS: MAGNESIUM OXIDE PO SCH (18:01)
[2015-10-21] MEDS: ZINC GLUCONATE PO SCH (18:01)
[2015-10-21] MEDS: [UNRECOGNIZED DRUG - OTHER] PO SCH (18:01)
[2015-10-22] MEDS: LEVOTHYROXINE 75 MCG PO SCH (06:08)
[2015-10-22] MEDS: CHOLECALCIFEROL 5000 UNIT PO SCH (09:29)
[2015-10-22] MEDS: UBIDECARENONE 100 MG PO SCH ×2 (09:29→18:44)
[2015-10-22] MEDS: DABIGATRAN 150 MG PO SCH ×2 (09:29→18:43)
[2015-10-22] MEDS: Clobetasol 0.05% Crm 30 GM Tube TOP SCH ×2 (09:30→18:46)
[2015-10-22] MEDS: OMEGA FISH OIL PO SCH (18:44)
[2015-10-22] MEDS: ZINC GLUCONATE PO SCH (18:44)
[2015-10-22] MEDS: CALCIUM CARBONATE PO SCH (18:44)
[2015-10-22] MEDS: [UNRECOGNIZED DRUG - OTHER] PO SCH (18:44)
[2015-10-22] MEDS: MAGNESIUM OXIDE PO SCH (18:44)
[2015-10-23] MEDS: LEVOTHYROXINE 75 MCG PO SCH ×2 (05:53→06:26)
[2015-10-23] MEDS: UBIDECARENONE 100 MG PO SCH ×2 (09:20→19:17)
[2015-10-23] MEDS: CHOLECALCIFEROL 5000 UNIT PO SCH (09:20)
[2015-10-23] MEDS: DABIGATRAN 150 MG PO SCH ×2 (09:20→19:18)
[2015-10-23] MEDS: Clobetasol 0.05% Crm 30 GM Tube TOP SCH ×2 (09:21→22:37)
[2015-10-23] MEDS: Acetaminophen 500 MG Tab PO PRN (09:22)
[2015-10-23] MEDS: CALCIUM CARBONATE PO SCH (19:15)
[2015-10-23] MEDS: MAGNESIUM OXIDE PO SCH (19:15)
[2015-10-23] MEDS: ZINC GLUCONATE PO SCH (19:15)
[2015-10-23] MEDS: [UNRECOGNIZED DRUG - OTHER] PO SCH (19:16)
[2015-10-23] MEDS: OMEGA FISH OIL PO SCH (19:16)
[2015-10-24] MEDS: LEVOTHYROXINE 75 MCG PO SCH (06:21)
[2015-10-24] MEDS: CHOLECALCIFEROL 5000 UNIT PO SCH (10:02)
[2015-10-24] MEDS: Acetaminophen 500 MG Tab PO PRN (10:02)
[2015-10-24] MEDS: DABIGATRAN 150 MG PO SCH ×2 (10:03→18:53)
[2015-10-24] MEDS: Clobetasol 0.05% Crm 30 GM Tube TOP SCH ×2 (10:03→18:53)
[2015-10-24] MEDS: UBIDECARENONE 100 MG PO SCH ×2 (10:03→18:52)
[2015-10-24] MEDS: [UNRECOGNIZED DRUG - OTHER] PO SCH (18:53)
[2015-10-24] MEDS: OMEGA FISH OIL PO SCH (18:53)
[2015-10-24] MEDS: CALCIUM CARBONATE PO SCH (18:53)
[2015-10-24] MEDS: MAGNESIUM OXIDE PO SCH (18:53)
[2015-10-24] MEDS: ZINC GLUCONATE PO SCH (18:53)
[2015-10-25] MEDS: UBIDECARENONE 100 MG PO SCH ×2 (09:47→18:35)
[2015-10-25] MEDS: Acetaminophen 500 MG Tab PO PRN (09:47)
[2015-10-25] MEDS: CHOLECALCIFEROL 5000 UNIT PO SCH (09:48)
[2015-10-25] MEDS: LEVOTHYROXINE 75 MCG PO SCH (09:48)
[2015-10-25] MEDS: DABIGATRAN 150 MG PO SCH ×2 (09:49→18:35)
[2015-10-25] MEDS: Clobetasol 0.05% Crm 30 GM Tube TOP SCH ×2 (09:50→18:36)
[2015-10-25] MEDS: MAGNESIUM OXIDE PO SCH (18:35)
[2015-10-25] MEDS: CALCIUM CARBONATE PO SCH (18:35)
[2015-10-25] MEDS: [UNRECOGNIZED DRUG - OTHER] PO SCH (18:35)
[2015-10-25] MEDS: OMEGA FISH OIL PO SCH (18:35)
[2015-10-25] MEDS: ZINC GLUCONATE PO SCH (18:35)
[2015-10-26] MEDS: LEVOTHYROXINE 75 MCG PO SCH (06:23)
[2015-10-26] MEDS: DABIGATRAN 150 MG PO SCH ×2 (09:37→18:52)
[2015-10-26] MEDS: UBIDECARENONE 100 MG PO SCH ×2 (09:38→18:53)
[2015-10-26] MEDS: CHOLECALCIFEROL 5000 UNIT PO SCH (09:38)
[2015-10-26] MEDS: Acetaminophen 500 MG Tab PO PRN (09:39)
[2015-10-26] MEDS: Clobetasol 0.05% Crm 30 GM Tube TOP SCH ×2 (09:39→18:54)
[2015-10-26] MEDS: [UNRECOGNIZED DRUG - OTHER] PO SCH (18:52)
[2015-10-26] MEDS: CALCIUM CARBONATE PO SCH (18:53)
[2015-10-26] MEDS: ZINC GLUCONATE PO SCH (18:53)
[2015-10-26] MEDS: MAGNESIUM OXIDE PO SCH (18:53)
[2015-10-26] MEDS: OMEGA FISH OIL PO SCH (18:53)
[2015-10-27] MEDS: DABIGATRAN 150 MG PO SCH ×2 (09:22→18:43)
[2015-10-27] MEDS: CHOLECALCIFEROL 5000 UNIT PO SCH (09:22)
[2015-10-27] MEDS: UBIDECARENONE 100 MG PO SCH ×2 (09:22→18:43)
[2015-10-27] MEDS: Clobetasol 0.05% Crm 30 GM Tube TOP SCH ×2 (09:23→18:45)
[2015-10-27] MEDS: [UNRECOGNIZED DRUG - OTHER] PO SCH (18:44)
[2015-10-27] MEDS: ZINC GLUCONATE PO SCH (18:44)
[2015-10-27] MEDS: MAGNESIUM OXIDE PO SCH (18:44)
[2015-10-27] MEDS: CALCIUM CARBONATE PO SCH (18:44)
[2015-10-27] MEDS: OMEGA FISH OIL PO SCH (18:44)
[2015-10-28] MEDS: LEVOTHYROXINE 75 MCG PO SCH ×2 (05:45→06:58)
[2015-10-28] MEDS: UBIDECARENONE 100 MG PO SCH ×2 (08:45→18:32)
[2015-10-28] MEDS: DABIGATRAN 150 MG PO SCH ×2 (08:45→18:31)
[2015-10-28] MEDS: CHOLECALCIFEROL 5000 UNIT PO SCH (08:46)
[2015-10-28] MEDS: Clobetasol 0.05% Crm 30 GM Tube TOP SCH ×2 (08:47→18:33)
[2015-10-28] MEDS: OMEGA FISH OIL PO SCH (18:32)
[2015-10-28] MEDS: MAGNESIUM OXIDE PO SCH (18:32)
[2015-10-28] MEDS: ZINC GLUCONATE PO SCH (18:32)
[2015-10-28] MEDS: [UNRECOGNIZED DRUG - OTHER] PO SCH (18:32)
[2015-10-28] MEDS: CALCIUM CARBONATE PO SCH (18:32)
[2015-10-29] MEDS: LEVOTHYROXINE 75 MCG PO SCH (06:44)
[2015-10-29] MEDS: Acetaminophen 500 MG Tab PO PRN (09:22)
[2015-10-29] MEDS: UBIDECARENONE 100 MG PO SCH ×2 (09:23→18:04)
[2015-10-29] MEDS: DABIGATRAN 150 MG PO SCH ×2 (09:23→18:03)
[2015-10-29] MEDS: CHOLECALCIFEROL 5000 UNIT PO SCH (09:23)
[2015-10-29] MEDS: Clobetasol 0.05% Crm 30 GM Tube TOP SCH (09:23)
--- NOTE | 2015-10-29 11:25 | PN ---
Progress Note for EMILY SHEETS Date: 10/29/2015 Room #: VM.207 SUBJECTIVE: This is an 85-year-old seen today for followup on vaginal irritation. She has been on clobetasol salves vaginally twice daily since the last 2 weeks. She was having more irritation last week. The nurse contacted me, but I was out of town. The patient says it is getting better since they have been putting the cream in the right place. Otherwise, she has no concerns. OBJECTIVE: Vital Signs: Her temperature is 97.2, pulse 60, blood pressure 130/72, respiratory rate 20, and O2 is 98% on room air. General: She is in no acute distress. Heart: Irregularly irregular without murmur. Lungs: Sounds are clear to auscultation bilaterally without crackles or wheezes. Abdomen: Positive bowel sounds. Soft and nontender. Extremities: Warm and dry. No edema. Mental Status: Alert and orientated x3. Genitalia: Her vaginal and vulvar exam show her to have some swollen vulva with minimal redness, but no drainage. Atrophic changes noted. Vaginal exam not performed. There is no speculum. Discussed with the patient if this does not improve, she will have to come over to the clinic for a proper pelvic exam. ASSESSMENT: 1. Atrophic vaginitis: She has completed 2 weeks of clobetasol. We will change that to p.r.n. for irritation and get her started on Premarin cream twice weekly. 2. Atrial fibrillation with previous transient ischemic attack, on Pradaxa. 3. Mild thrombocytopenia. We will repeat a CBC in the next 1 to 2 months. 4. Chronic leg weakness. 5. Osteoarthritis. Her pain is controlled. 6. Essential hypertension, controlled. PLAN: At this point, we will continue swing bed cares. I will see her for recertification in 30 days or sooner for a vaginal exam in the clinic, if indicated. We will change her clobetasol to p.r.n. and start her on Premarin cream. MKA: 10/29/2015 10:32:37 MODL: 10/29/2015 11:03:43 /[id number]
[2015-10-29] MEDS: MAGNESIUM OXIDE PO SCH (18:04)
[2015-10-29] MEDS: ZINC GLUCONATE PO SCH (18:04)
[2015-10-29] MEDS: OMEGA FISH OIL PO SCH (18:04)
[2015-10-29] MEDS: CALCIUM CARBONATE PO SCH (18:04)
[2015-10-29] MEDS: [UNRECOGNIZED DRUG - OTHER] PO SCH (18:04)
[2015-10-30] MEDS: LEVOTHYROXINE 75 MCG PO SCH (06:35)
[2015-10-30] MEDS: DABIGATRAN 150 MG PO SCH ×2 (09:57→18:10)
[2015-10-30] MEDS: CHOLECALCIFEROL 5000 UNIT PO SCH (09:57)
[2015-10-30] MEDS: UBIDECARENONE 100 MG PO SCH ×2 (09:57→18:10)
[2015-10-30] MEDS: Acetaminophen 500 MG Tab PO PRN (09:58)
[2015-10-30] MEDS: CONJUGATED ESTROGENS TOP SCH (09:58)
[2015-10-30] MEDS: [UNRECOGNIZED DRUG - OTHER] PO SCH (18:10)
[2015-10-30] MEDS: OMEGA FISH OIL PO SCH (18:10)
[2015-10-30] MEDS: ZINC GLUCONATE PO SCH (18:10)
[2015-10-30] MEDS: MAGNESIUM OXIDE PO SCH (18:10)
[2015-10-30] MEDS: CALCIUM CARBONATE PO SCH (18:10)
[2015-10-31] MEDS: LEVOTHYROXINE 75 MCG PO SCH (06:15)
[2015-10-31] MEDS: DABIGATRAN 150 MG PO SCH ×2 (08:59→18:52)
[2015-10-31] MEDS: UBIDECARENONE 100 MG PO SCH ×2 (08:59→18:52)
[2015-10-31] MEDS: Acetaminophen 500 MG Tab PO PRN (08:59)
[2015-10-31] MEDS: CHOLECALCIFEROL 5000 UNIT PO SCH (08:59)
[2015-10-31] MEDS: CALCIUM CARBONATE PO SCH (18:52)
[2015-10-31] MEDS: MAGNESIUM OXIDE PO SCH (18:52)
[2015-10-31] MEDS: [UNRECOGNIZED DRUG - OTHER] PO SCH (18:52)
[2015-10-31] MEDS: OMEGA FISH OIL PO SCH (18:52)
[2015-10-31] MEDS: ZINC GLUCONATE PO SCH (18:52)
[2015-11-01] MEDS: LEVOTHYROXINE 75 MCG PO SCH (06:07)
[2015-11-01] MEDS: UBIDECARENONE 100 MG PO SCH ×2 (09:01→18:01)
[2015-11-01] MEDS: DABIGATRAN 150 MG PO SCH ×2 (09:01→18:01)
[2015-11-01] MEDS: Acetaminophen 500 MG Tab PO PRN (09:01)
[2015-11-01] MEDS: CHOLECALCIFEROL 5000 UNIT PO SCH (09:01)
[2015-11-01] MEDS: OMEGA FISH OIL PO SCH (18:01)
[2015-11-01] MEDS: [UNRECOGNIZED DRUG - OTHER] PO SCH (18:01)
[2015-11-01] MEDS: CALCIUM CARBONATE PO SCH (18:02)
[2015-11-01] MEDS: MAGNESIUM OXIDE PO SCH (18:02)
[2015-11-01] MEDS: ZINC GLUCONATE PO SCH (18:02)
[2015-11-02] MEDS: UBIDECARENONE 100 MG PO SCH ×2 (08:53→21:42)
[2015-11-02] MEDS: CHOLECALCIFEROL 5000 UNIT PO SCH (08:53)
[2015-11-02] MEDS: LEVOTHYROXINE 75 MCG PO SCH (08:53)
[2015-11-02] MEDS: DABIGATRAN 150 MG PO SCH ×2 (08:54→21:40)
[2015-11-02] MEDS: Acetaminophen 500 MG Tab PO PRN (08:54)
[2015-11-02] MEDS: CONJUGATED ESTROGENS TOP SCH (08:54)
[2015-11-02] MEDS: ZINC GLUCONATE PO SCH (21:41)
[2015-11-02] MEDS: MAGNESIUM OXIDE PO SCH (21:41)
[2015-11-02] MEDS: CALCIUM CARBONATE PO SCH (21:41)
[2015-11-02] MEDS: OMEGA FISH OIL PO SCH (21:41)
[2015-11-02] MEDS: [UNRECOGNIZED DRUG - OTHER] PO SCH (21:42)
[2015-11-03] MEDS: DABIGATRAN 150 MG PO SCH ×2 (09:10→18:06)
[2015-11-03] MEDS: CHOLECALCIFEROL 5000 UNIT PO SCH (09:10)
[2015-11-03] MEDS: UBIDECARENONE 100 MG PO SCH ×2 (09:10→18:06)
[2015-11-03] MEDS: Acetaminophen 500 MG Tab PO PRN (09:11)
[2015-11-03] MEDS: ZINC GLUCONATE PO SCH (18:06)
[2015-11-03] MEDS: CALCIUM CARBONATE PO SCH (18:06)
[2015-11-03] MEDS: MAGNESIUM OXIDE PO SCH (18:06)
[2015-11-03] MEDS: OMEGA FISH OIL PO SCH (18:06)
[2015-11-03] MEDS: [UNRECOGNIZED DRUG - OTHER] PO SCH (18:06)
[2015-11-04] MEDS: LEVOTHYROXINE 75 MCG PO SCH (05:59)
[2015-11-04] MEDS: DABIGATRAN 150 MG PO SCH ×2 (08:55→21:03)
[2015-11-04] MEDS: CHOLECALCIFEROL 5000 UNIT PO SCH (08:56)
[2015-11-04] MEDS: UBIDECARENONE 100 MG PO SCH ×2 (08:56→21:04)
[2015-11-04] MEDS: Acetaminophen 500 MG Tab PO PRN (08:57)
[2015-11-04] MEDS: OMEGA FISH OIL PO SCH (21:03)
[2015-11-04] MEDS: MAGNESIUM OXIDE PO SCH (21:03)
[2015-11-04] MEDS: CALCIUM CARBONATE PO SCH (21:03)
[2015-11-04] MEDS: ZINC GLUCONATE PO SCH (21:03)
[2015-11-04] MEDS: [UNRECOGNIZED DRUG - OTHER] PO SCH (21:04)
[2015-11-05] MEDS: LEVOTHYROXINE 75 MCG PO SCH ×2 (05:49→06:02)
[2015-11-05] MEDS: CHOLECALCIFEROL 5000 UNIT PO SCH (09:09)
[2015-11-05] MEDS: UBIDECARENONE 100 MG PO SCH ×2 (09:09→18:03)
[2015-11-05] MEDS: DABIGATRAN 150 MG PO SCH ×2 (09:09→18:03)
[2015-11-05] MEDS: Acetaminophen 500 MG Tab PO PRN (09:10)
[2015-11-05] MEDS: CONJUGATED ESTROGENS TOP SCH (09:10)
[2015-11-05] MEDS: OMEGA FISH OIL PO SCH (18:04)
[2015-11-05] MEDS: [UNRECOGNIZED DRUG - OTHER] PO SCH (18:04)
[2015-11-05] MEDS: CALCIUM CARBONATE PO SCH (18:04)
[2015-11-05] MEDS: ZINC GLUCONATE PO SCH (18:04)
[2015-11-05] MEDS: MAGNESIUM OXIDE PO SCH (18:04)
[2015-11-06] MEDS: LEVOTHYROXINE 75 MCG PO SCH (06:54)
[2015-11-06] MEDS: UBIDECARENONE 100 MG PO SCH ×2 (10:56→19:28)
[2015-11-06] MEDS: DABIGATRAN 150 MG PO SCH ×2 (10:57→19:29)
[2015-11-06] MEDS: Acetaminophen 500 MG Tab PO PRN (11:00)
[2015-11-06] MEDS: CHOLECALCIFEROL 5000 UNIT PO SCH (11:00)
[2015-11-06] MEDS: [UNRECOGNIZED DRUG - OTHER] PO SCH (19:28)
[2015-11-06] MEDS: OMEGA FISH OIL PO SCH (19:28)
[2015-11-06] MEDS: ZINC GLUCONATE PO SCH (19:28)
[2015-11-06] MEDS: MAGNESIUM OXIDE PO SCH (19:28)
[2015-11-06] MEDS: CALCIUM CARBONATE PO SCH (19:28)
[2015-11-07] MEDS: LEVOTHYROXINE 75 MCG PO SCH ×2 (05:45→06:35)
[2015-11-07] MEDS: DABIGATRAN 150 MG PO SCH ×2 (09:44→18:02)
[2015-11-07] MEDS: CHOLECALCIFEROL 5000 UNIT PO SCH (09:44)
[2015-11-07] MEDS: Acetaminophen 500 MG Tab PO PRN (09:44)
[2015-11-07] MEDS: UBIDECARENONE 100 MG PO SCH ×2 (09:44→18:02)
[2015-11-07] MEDS: MAGNESIUM OXIDE PO SCH (18:02)
[2015-11-07] MEDS: ZINC GLUCONATE PO SCH (18:02)
[2015-11-07] MEDS: CALCIUM CARBONATE PO SCH (18:02)
[2015-11-07] MEDS: [UNRECOGNIZED DRUG - OTHER] PO SCH (18:03)
[2015-11-07] MEDS: OMEGA FISH OIL PO SCH (18:03)
[2015-11-08] MEDS: LEVOTHYROXINE 75 MCG PO SCH (06:15)
[2015-11-08] MEDS: DABIGATRAN 150 MG PO SCH ×2 (08:56→18:24)
[2015-11-08] MEDS: UBIDECARENONE 100 MG PO SCH ×2 (08:56→18:25)
[2015-11-08] MEDS: CHOLECALCIFEROL 5000 UNIT PO SCH (08:56)
[2015-11-08] MEDS: CONJUGATED ESTROGENS TOP SCH (08:57)
[2015-11-08] MEDS: Acetaminophen 500 MG Tab PO PRN (08:57)
[2015-11-08] MEDS: OMEGA FISH OIL PO SCH (18:25)
[2015-11-08] MEDS: MAGNESIUM OXIDE PO SCH (18:26)
[2015-11-08] MEDS: CALCIUM CARBONATE PO SCH (18:26)
[2015-11-08] MEDS: ZINC GLUCONATE PO SCH (18:26)
[2015-11-08] MEDS: [UNRECOGNIZED DRUG - OTHER] PO SCH (18:26)
[2015-11-09] MEDS: LEVOTHYROXINE 75 MCG PO SCH ×2 (05:40→06:27)
[2015-11-09] MEDS: UBIDECARENONE 100 MG PO SCH ×2 (09:51→18:53)
[2015-11-09] MEDS: DABIGATRAN 150 MG PO SCH ×2 (09:51→18:50)
[2015-11-09] MEDS: Acetaminophen 500 MG Tab PO PRN (09:52)
[2015-11-09] MEDS: CHOLECALCIFEROL 5000 UNIT PO SCH (09:52)
[2015-11-09] MEDS: OMEGA FISH OIL PO SCH (18:51)
[2015-11-09] MEDS: ZINC GLUCONATE PO SCH (18:51)
[2015-11-09] MEDS: CALCIUM CARBONATE PO SCH (18:51)
[2015-11-09] MEDS: MAGNESIUM OXIDE PO SCH (18:51)
[2015-11-09] MEDS: [UNRECOGNIZED DRUG - OTHER] PO SCH (18:51)
[2015-11-10] MEDS: CHOLECALCIFEROL 5000 UNIT PO SCH (09:17)
[2015-11-10] MEDS: UBIDECARENONE 100 MG PO SCH ×2 (09:17→18:17)
[2015-11-10] MEDS: DABIGATRAN 150 MG PO SCH ×2 (09:18→18:16)
[2015-11-10] MEDS: Acetaminophen 500 MG Tab PO PRN (09:19)
[2015-11-10] MEDS: OMEGA FISH OIL PO SCH (18:16)
[2015-11-10] MEDS: CALCIUM CARBONATE PO SCH (18:16)
[2015-11-10] MEDS: MAGNESIUM OXIDE PO SCH (18:16)
[2015-11-10] MEDS: ZINC GLUCONATE PO SCH (18:16)
[2015-11-10] MEDS: [UNRECOGNIZED DRUG - OTHER] PO SCH (18:17)
[2015-11-11] MEDS: LEVOTHYROXINE 75 MCG PO SCH (06:33)
[2015-11-11] MEDS: DABIGATRAN 150 MG PO SCH ×2 (09:06→18:03)
[2015-11-11] MEDS: UBIDECARENONE 100 MG PO SCH ×2 (09:07→18:04)
[2015-11-11] MEDS: CHOLECALCIFEROL 5000 UNIT PO SCH (09:08)
[2015-11-11] MEDS: Acetaminophen 500 MG Tab PO PRN (09:08)
[2015-11-11] MEDS: CONJUGATED ESTROGENS TOP SCH (18:03)
[2015-11-11] MEDS: ZINC GLUCONATE PO SCH (18:04)
[2015-11-11] MEDS: OMEGA FISH OIL PO SCH (18:04)
[2015-11-11] MEDS: [UNRECOGNIZED DRUG - OTHER] PO SCH (18:04)
[2015-11-11] MEDS: CALCIUM CARBONATE PO SCH (18:04)
[2015-11-11] MEDS: MAGNESIUM OXIDE PO SCH (18:04)
[2015-11-12] MEDS: LEVOTHYROXINE 75 MCG PO SCH (06:40)
[2015-11-12] MEDS: CHOLECALCIFEROL 5000 UNIT PO SCH (09:31)
[2015-11-12] MEDS: Acetaminophen 500 MG Tab PO PRN (09:32)
[2015-11-12] MEDS: DABIGATRAN 150 MG PO SCH ×2 (09:32→18:26)
[2015-11-12] MEDS: UBIDECARENONE 100 MG PO SCH ×2 (09:32→18:26)
[2015-11-12] MEDS: [UNRECOGNIZED DRUG - OTHER] PO SCH (18:26)
[2015-11-12] MEDS: OMEGA FISH OIL PO SCH (18:26)
[2015-11-12] MEDS: ZINC GLUCONATE PO SCH (18:26)
[2015-11-12] MEDS: CALCIUM CARBONATE PO SCH (18:26)
[2015-11-12] MEDS: MAGNESIUM OXIDE PO SCH (18:26)
[2015-11-13] MEDS: LEVOTHYROXINE 75 MCG PO SCH ×2 (05:29→06:20)
[2015-11-13] MEDS: CHOLECALCIFEROL 5000 UNIT PO SCH (09:26)
[2015-11-13] MEDS: DABIGATRAN 150 MG PO SCH ×2 (09:27→18:02)
[2015-11-13] MEDS: UBIDECARENONE 100 MG PO SCH ×2 (09:27→18:01)
[2015-11-13] MEDS: Acetaminophen 500 MG Tab PO PRN (09:28)
[2015-11-13] MEDS: ZINC GLUCONATE PO SCH (18:01)
[2015-11-13] MEDS: MAGNESIUM OXIDE PO SCH (18:01)
[2015-11-13] MEDS: OMEGA FISH OIL PO SCH (18:01)
[2015-11-13] MEDS: CALCIUM CARBONATE PO SCH (18:01)
[2015-11-13] MEDS: [UNRECOGNIZED DRUG - OTHER] PO SCH (18:02)
[2015-11-14] MEDS: LEVOTHYROXINE 75 MCG PO SCH (06:16)
[2015-11-14] MEDS: CONJUGATED ESTROGENS TOP SCH (09:29)
[2015-11-14] MEDS: DABIGATRAN 150 MG PO SCH ×2 (09:29→18:13)
[2015-11-14] MEDS: CHOLECALCIFEROL 5000 UNIT PO SCH (09:29)
[2015-11-14] MEDS: UBIDECARENONE 100 MG PO SCH ×2 (09:29→18:13)
[2015-11-14] MEDS: Acetaminophen 500 MG Tab PO PRN (09:30)
[2015-11-14] MEDS: CALCIUM CARBONATE PO SCH (18:13)
[2015-11-14] MEDS: ZINC GLUCONATE PO SCH (18:13)
[2015-11-14] MEDS: [UNRECOGNIZED DRUG - OTHER] PO SCH (18:13)
[2015-11-14] MEDS: MAGNESIUM OXIDE PO SCH (18:13)
[2015-11-14] MEDS: OMEGA FISH OIL PO SCH (18:13)
[2015-11-15] MEDS: LEVOTHYROXINE 75 MCG PO SCH (06:57)
[2015-11-15] MEDS: UBIDECARENONE 100 MG PO SCH ×2 (09:21→18:32)
[2015-11-15] MEDS: Acetaminophen 500 MG Tab PO PRN (09:21)
[2015-11-15] MEDS: CHOLECALCIFEROL 5000 UNIT PO SCH (09:21)
[2015-11-15] MEDS: DABIGATRAN 150 MG PO SCH ×2 (09:21→18:33)
[2015-11-15] MEDS: ZINC GLUCONATE PO SCH (18:33)
[2015-11-15] MEDS: [UNRECOGNIZED DRUG - OTHER] PO SCH (18:33)
[2015-11-15] MEDS: MAGNESIUM OXIDE PO SCH (18:33)
[2015-11-15] MEDS: OMEGA FISH OIL PO SCH (18:33)
[2015-11-15] MEDS: CALCIUM CARBONATE PO SCH (18:33)
[2015-11-16] MEDS: LEVOTHYROXINE 75 MCG PO SCH (06:22)
[2015-11-16] MEDS: Acetaminophen 500 MG Tab PO PRN (09:24)
[2015-11-16] MEDS: UBIDECARENONE 100 MG PO SCH ×2 (09:25→18:33)
[2015-11-16] MEDS: CHOLECALCIFEROL 5000 UNIT PO SCH (09:25)
[2015-11-16] MEDS: DABIGATRAN 150 MG PO SCH ×2 (09:25→18:33)
[2015-11-16] MEDS: ZINC GLUCONATE PO SCH (18:33)
[2015-11-16] MEDS: MAGNESIUM OXIDE PO SCH (18:33)
[2015-11-16] MEDS: [UNRECOGNIZED DRUG - OTHER] PO SCH (18:33)
[2015-11-16] MEDS: CALCIUM CARBONATE PO SCH (18:33)
[2015-11-16] MEDS: OMEGA FISH OIL PO SCH (18:33)
[2015-11-17] MEDS: DABIGATRAN 150 MG PO SCH ×2 (09:12→18:23)
[2015-11-17] MEDS: UBIDECARENONE 100 MG PO SCH ×2 (09:13→18:23)
[2015-11-17] MEDS: CHOLECALCIFEROL 5000 UNIT PO SCH (09:13)
[2015-11-17] MEDS: Acetaminophen 500 MG Tab PO PRN ×2 (09:13→17:14)
[2015-11-17] MEDS: CONJUGATED ESTROGENS TOP SCH (09:14)
[2015-11-17] MEDS: CLOBETASOL 0.05% TOP PRN (09:27)
[2015-11-17] MEDS: OMEGA FISH OIL PO SCH (18:23)
[2015-11-17] MEDS: ZINC GLUCONATE PO SCH (18:24)
[2015-11-17] MEDS: CALCIUM CARBONATE PO SCH (18:24)
[2015-11-17] MEDS: [UNRECOGNIZED DRUG - OTHER] PO SCH (18:24)
[2015-11-17] MEDS: MAGNESIUM OXIDE PO SCH (18:24)
[2015-11-18] MEDS: LEVOTHYROXINE 75 MCG PO SCH ×2 (05:56→08:54)
[2015-11-18] MEDS: CHOLECALCIFEROL 5000 UNIT PO SCH (08:54)
[2015-11-18] MEDS: Acetaminophen 500 MG Tab PO PRN (08:54)
[2015-11-18] MEDS: UBIDECARENONE 100 MG PO SCH ×2 (08:54→18:19)
[2015-11-18] MEDS: DABIGATRAN 150 MG PO SCH ×2 (08:54→18:18)
[2015-11-18] MEDS: CLOBETASOL 0.05% TOP PRN (08:55)
[2015-11-18] MEDS: MAGNESIUM OXIDE PO SCH (18:19)
[2015-11-18] MEDS: ZINC GLUCONATE PO SCH (18:19)
[2015-11-18] MEDS: CALCIUM CARBONATE PO SCH (18:19)
[2015-11-18] MEDS: OMEGA FISH OIL PO SCH (18:19)
[2015-11-18] MEDS: [UNRECOGNIZED DRUG - OTHER] PO SCH (18:19)
[2015-11-19] MEDS: LEVOTHYROXINE 75 MCG PO SCH (06:05)
[2015-11-19] MEDS: CHOLECALCIFEROL 5000 UNIT PO SCH (10:13)
[2015-11-19] MEDS: DABIGATRAN 150 MG PO SCH ×2 (10:13→19:24)
[2015-11-19] MEDS: UBIDECARENONE 100 MG PO SCH ×2 (10:14→19:23)
[2015-11-19] MEDS: Acetaminophen 500 MG Tab PO PRN (10:16)
[2015-11-19] MEDS: CLOBETASOL 0.05% TOP PRN (15:31)
--- NOTE | 2015-11-19 15:59 | PN ---
Progress Note for EMILY SHEETS Date: 11/16/2015 Room #: VM.207 SUBJECTIVE: This is an 85-year-old seen today for recertification. The patient does have some left toe pain, sort of comes and goes, feels kind of stiff. It has been going on about a month and has not been red or swollen. She has not had any history of gout. Otherwise, she denies any injury. She has no other concerns. Her vaginal irritation was much better. No longer burning, but she sort of feeling some irritation come back. OBJECTIVE: Vital Signs: Temperature is 97.8, pulse 86, blood pressure 110/69, respiratory rate 18, and O2 of 95% on room air. General: She is in no acute distress. Heart: Irregularly irregular. Lungs: Sounds are clear to auscultation bilaterally without crackles or wheezes. Extremities: Warm and dry. No edema. Left foot and toe was examined, 2+ dorsal pedis pulses. No swelling. She has a small ganglion feeling lump over the 5th MTP joint. There is no redness or warmth to suggest infection. Mental Status: She is alert and orientated x3.. ASSESSMENT: 1. Toe pain possibly related to a ganglion cyst. At this point, it is not bothering her that much. Tylenol is available p.r.n. I think we will just continue to watch things. 2. Atrophic vaginitis on Premarin cream twice weekly. I will go ahead and start using the p.r.n. clobetasol again for irritation. 3. Atrial fibrillation with previous transient ischemic attack, on Pradaxa. 4. Mild thrombocytopenia. 5. Chronic leg weakness. 6. Osteoarthritis. 7. Hypothyroidism. 8. Essential hypertension, controlled. PLAN: At this point, the patient will continue swing bed cares. We will check lab work. We will check a uric acid as well, just to ensure that there is not any potential for gout given her toe pain, recertify in 30 days. MKA: 11/16/2015 12:58:56 MODL: 11/16/2015 13:15:42 /[id number]
[2015-11-19] MEDS: ZINC GLUCONATE PO SCH (19:23)
[2015-11-19] MEDS: MAGNESIUM OXIDE PO SCH (19:23)
[2015-11-19] MEDS: CALCIUM CARBONATE PO SCH (19:23)
[2015-11-19] MEDS: [UNRECOGNIZED DRUG - OTHER] PO SCH (19:23)
[2015-11-19] MEDS: OMEGA FISH OIL PO SCH (19:24)
[2015-11-20] MEDS: LEVOTHYROXINE 75 MCG PO SCH (06:48)
[2015-11-20] MEDS: CHOLECALCIFEROL 5000 UNIT PO SCH (09:07)
[2015-11-20] MEDS: DABIGATRAN 150 MG PO SCH ×2 (09:07→18:16)
[2015-11-20] MEDS: UBIDECARENONE 100 MG PO SCH ×2 (09:07→18:16)
[2015-11-20] MEDS: Acetaminophen 500 MG Tab PO PRN (09:08)
[2015-11-20] MEDS: CONJUGATED ESTROGENS TOP SCH (09:10)
[2015-11-20] MEDS: MAGNESIUM OXIDE PO SCH (18:15)
[2015-11-20] MEDS: ZINC GLUCONATE PO SCH (18:15)
[2015-11-20] MEDS: CALCIUM CARBONATE PO SCH (18:15)
[2015-11-20] MEDS: OMEGA FISH OIL PO SCH (18:15)
[2015-11-20] MEDS: [UNRECOGNIZED DRUG - OTHER] PO SCH (18:16)
[2015-11-21] MEDS: DABIGATRAN 150 MG PO SCH ×2 (09:28→20:05)
[2015-11-21] MEDS: LEVOTHYROXINE 75 MCG PO SCH (09:28)
[2015-11-21] MEDS: UBIDECARENONE 100 MG PO SCH ×2 (09:28→20:06)
[2015-11-21] MEDS: CHOLECALCIFEROL 5000 UNIT PO SCH (09:29)
[2015-11-21] MEDS: Acetaminophen 500 MG Tab PO PRN (09:29)
[2015-11-21] MEDS: CLOBETASOL 0.05% TOP PRN (09:32)
[2015-11-21] MEDS: ZINC GLUCONATE PO SCH (20:04)
[2015-11-21] MEDS: MAGNESIUM OXIDE PO SCH (20:04)
[2015-11-21] MEDS: CALCIUM CARBONATE PO SCH (20:04)
[2015-11-21] MEDS: OMEGA FISH OIL PO SCH (20:05)
[2015-11-21] MEDS: [UNRECOGNIZED DRUG - OTHER] PO SCH (20:06)
[2015-11-22] MEDS: LEVOTHYROXINE 75 MCG PO SCH (06:36)
[2015-11-22] MEDS: CHOLECALCIFEROL 5000 UNIT PO SCH (09:42)
[2015-11-22] MEDS: DABIGATRAN 150 MG PO SCH ×2 (09:43→18:18)
[2015-11-22] MEDS: Acetaminophen 500 MG Tab PO PRN (09:44)
[2015-11-22] MEDS: UBIDECARENONE 100 MG PO SCH ×2 (09:44→18:21)
[2015-11-22] MEDS: MAGNESIUM OXIDE PO SCH (18:19)
[2015-11-22] MEDS: OMEGA FISH OIL PO SCH (18:19)
[2015-11-22] MEDS: ZINC GLUCONATE PO SCH (18:19)
[2015-11-22] MEDS: [UNRECOGNIZED DRUG - OTHER] PO SCH (18:19)
[2015-11-22] MEDS: CALCIUM CARBONATE PO SCH (18:19)
[2015-11-23] MEDS: LEVOTHYROXINE 75 MCG PO SCH (06:21)
[2015-11-23] MEDS: CHOLECALCIFEROL 5000 UNIT PO SCH (08:54)
[2015-11-23] MEDS: DABIGATRAN 150 MG PO SCH ×2 (08:54→18:07)
[2015-11-23] MEDS: CONJUGATED ESTROGENS TOP SCH (08:54)
[2015-11-23] MEDS: UBIDECARENONE 100 MG PO SCH ×2 (08:54→18:06)
[2015-11-23] MEDS: Acetaminophen 500 MG Tab PO PRN (08:55)
[2015-11-23] MEDS: OMEGA FISH OIL PO SCH (18:06)
[2015-11-23] MEDS: CALCIUM CARBONATE PO SCH (18:07)
[2015-11-23] MEDS: ZINC GLUCONATE PO SCH (18:07)
[2015-11-23] MEDS: MAGNESIUM OXIDE PO SCH (18:07)
[2015-11-23] MEDS: [UNRECOGNIZED DRUG - OTHER] PO SCH (18:07)
[2015-11-23] MEDS: CLOBETASOL 0.05% TOP PRN (18:10)
[2015-11-24] MEDS: CHOLECALCIFEROL 5000 UNIT PO SCH (09:40)
[2015-11-24] MEDS: DABIGATRAN 150 MG PO SCH ×2 (09:40→18:41)
[2015-11-24] MEDS: UBIDECARENONE 100 MG PO SCH ×2 (09:41→18:40)
[2015-11-24] MEDS: Acetaminophen 500 MG Tab PO PRN (09:41)
[2015-11-24] MEDS: OMEGA FISH OIL PO SCH (18:40)
[2015-11-24] MEDS: CALCIUM CARBONATE PO SCH (18:40)
[2015-11-24] MEDS: [UNRECOGNIZED DRUG - OTHER] PO SCH (18:40)
[2015-11-24] MEDS: MAGNESIUM OXIDE PO SCH (18:40)
[2015-11-24] MEDS: ZINC GLUCONATE PO SCH (18:40)
[2015-11-25] MEDS: LEVOTHYROXINE 75 MCG PO SCH (06:11)
[2015-11-25] MEDS: DABIGATRAN 150 MG PO SCH ×2 (09:48→18:18)
[2015-11-25] MEDS: CHOLECALCIFEROL 5000 UNIT PO SCH (09:49)
[2015-11-25] MEDS: UBIDECARENONE 100 MG PO SCH ×2 (09:49→18:18)
[2015-11-25] MEDS: Acetaminophen 500 MG Tab PO PRN (09:50)
[2015-11-25] MEDS: [UNRECOGNIZED DRUG - OTHER] PO SCH (18:18)
[2015-11-25] MEDS: MAGNESIUM OXIDE PO SCH (18:18)
[2015-11-25] MEDS: CALCIUM CARBONATE PO SCH (18:18)
[2015-11-25] MEDS: ZINC GLUCONATE PO SCH (18:18)
[2015-11-25] MEDS: OMEGA FISH OIL PO SCH (18:18)
[2015-11-26] MEDS: LEVOTHYROXINE 75 MCG PO SCH (06:53)
[2015-11-26] MEDS: CHOLECALCIFEROL 5000 UNIT PO SCH (09:21)
[2015-11-26] MEDS: DABIGATRAN 150 MG PO SCH ×2 (09:21→18:32)
[2015-11-26] MEDS: Acetaminophen 500 MG Tab PO PRN (09:22)
[2015-11-26] MEDS: UBIDECARENONE 100 MG PO SCH ×2 (09:22→18:34)
[2015-11-26] MEDS: CONJUGATED ESTROGENS TOP SCH (09:24)
[2015-11-26] MEDS: ZINC GLUCONATE PO SCH (18:33)
[2015-11-26] MEDS: OMEGA FISH OIL PO SCH (18:33)
[2015-11-26] MEDS: CALCIUM CARBONATE PO SCH (18:33)
[2015-11-26] MEDS: MAGNESIUM OXIDE PO SCH (18:33)
[2015-11-26] MEDS: [UNRECOGNIZED DRUG - OTHER] PO SCH (18:33)
[2015-11-27] MEDS: LEVOTHYROXINE 75 MCG PO SCH (06:28)
[2015-11-27] MEDS: Acetaminophen 500 MG Tab PO PRN (09:10)
[2015-11-27] MEDS: DABIGATRAN 150 MG PO SCH ×2 (09:10→18:21)
[2015-11-27] MEDS: CHOLECALCIFEROL 5000 UNIT PO SCH (09:11)
[2015-11-27] MEDS: UBIDECARENONE 100 MG PO SCH ×2 (09:12→18:19)
[2015-11-27] MEDS: CALCIUM CARBONATE PO SCH (18:18)
[2015-11-27] MEDS: ZINC GLUCONATE PO SCH (18:18)
[2015-11-27] MEDS: MAGNESIUM OXIDE PO SCH (18:18)
[2015-11-27] MEDS: OMEGA FISH OIL PO SCH (18:19)
[2015-11-27] MEDS: [UNRECOGNIZED DRUG - OTHER] PO SCH (18:19)
[2015-11-28] MEDS: LEVOTHYROXINE 75 MCG PO SCH (06:44)
[2015-11-28] MEDS: DABIGATRAN 150 MG PO SCH ×2 (08:43→18:07)
[2015-11-28] MEDS: CHOLECALCIFEROL 5000 UNIT PO SCH (08:43)
[2015-11-28] MEDS: UBIDECARENONE 100 MG PO SCH ×2 (08:44→18:06)
[2015-11-28] MEDS: CLOBETASOL 0.05% TOP PRN (08:44)
[2015-11-28] MEDS: Acetaminophen 500 MG Tab PO PRN (08:48)
[2015-11-28] MEDS: CALCIUM CARBONATE PO SCH (18:05)
[2015-11-28] MEDS: MAGNESIUM OXIDE PO SCH (18:05)
[2015-11-28] MEDS: ZINC GLUCONATE PO SCH (18:05)
[2015-11-28] MEDS: OMEGA FISH OIL PO SCH (18:06)
[2015-11-28] MEDS: [UNRECOGNIZED DRUG - OTHER] PO SCH (18:06)
[2015-11-29] MEDS: LEVOTHYROXINE 75 MCG PO SCH (06:04)
[2015-11-29] MEDS: CHOLECALCIFEROL 5000 UNIT PO SCH (09:20)
[2015-11-29] MEDS: DABIGATRAN 150 MG PO SCH ×2 (09:21→18:35)
[2015-11-29] MEDS: Acetaminophen 500 MG Tab PO PRN (09:22)
[2015-11-29] MEDS: UBIDECARENONE 100 MG PO SCH ×2 (09:26→18:34)
[2015-11-29] MEDS: CONJUGATED ESTROGENS TOP SCH (09:27)
[2015-11-29] MEDS: OMEGA FISH OIL PO SCH (18:32)
[2015-11-29] MEDS: [UNRECOGNIZED DRUG - OTHER] PO SCH (18:32)
[2015-11-29] MEDS: CALCIUM CARBONATE PO SCH (18:32)
[2015-11-29] MEDS: MAGNESIUM OXIDE PO SCH (18:32)
[2015-11-29] MEDS: ZINC GLUCONATE PO SCH (18:32)
[2015-11-30] MEDS: LEVOTHYROXINE 75 MCG PO SCH ×2 (05:55→06:01)
[2015-11-30] MEDS: CHOLECALCIFEROL 5000 UNIT PO SCH (09:19)
[2015-11-30] MEDS: DABIGATRAN 150 MG PO SCH ×2 (09:19→18:06)
[2015-11-30] MEDS: Acetaminophen 500 MG Tab PO PRN (09:20)
[2015-11-30] MEDS: UBIDECARENONE 100 MG PO SCH ×2 (09:20→18:07)
[2015-11-30] MEDS: CLOBETASOL 0.05% TOP PRN (09:22)
[2015-11-30] MEDS: MAGNESIUM OXIDE PO SCH (18:07)
[2015-11-30] MEDS: CALCIUM CARBONATE PO SCH (18:07)
[2015-11-30] MEDS: ZINC GLUCONATE PO SCH (18:07)
[2015-11-30] MEDS: [UNRECOGNIZED DRUG - OTHER] PO SCH (18:08)
[2015-11-30] MEDS: OMEGA FISH OIL PO SCH (18:08)
[2015-12-01] MEDS: DABIGATRAN 150 MG PO SCH ×2 (09:39→18:32)
[2015-12-01] MEDS: CHOLECALCIFEROL 5000 UNIT PO SCH (09:40)
[2015-12-01] MEDS: UBIDECARENONE 100 MG PO SCH ×2 (09:40→18:35)
[2015-12-01] MEDS: Acetaminophen 500 MG Tab PO PRN (09:41)
[2015-12-01] MEDS: CLOBETASOL 0.05% TOP PRN (14:30)
[2015-12-01] MEDS: CALCIUM CARBONATE PO SCH (18:32)
[2015-12-01] MEDS: OMEGA FISH OIL PO SCH (18:32)
[2015-12-01] MEDS: MAGNESIUM OXIDE PO SCH (18:32)
[2015-12-01] MEDS: [UNRECOGNIZED DRUG - OTHER] PO SCH (18:32)
[2015-12-01] MEDS: ZINC GLUCONATE PO SCH (18:32)
[2015-12-02] MEDS: LEVOTHYROXINE 75 MCG PO SCH (06:05)
[2015-12-02] MEDS: Acetaminophen 500 MG Tab PO PRN (08:49)
[2015-12-02] MEDS: CHOLECALCIFEROL 5000 UNIT PO SCH (08:50)
[2015-12-02] MEDS: CLOBETASOL 0.05% TOP PRN (08:50)
[2015-12-02] MEDS: DABIGATRAN 150 MG PO SCH ×2 (08:50→18:49)
[2015-12-02] MEDS: UBIDECARENONE 100 MG PO SCH ×2 (08:50→18:49)
[2015-12-02] MEDS: CONJUGATED ESTROGENS TOP SCH (09:43)
[2015-12-02] MEDS: CALCIUM CARBONATE PO SCH (18:49)
[2015-12-02] MEDS: OMEGA FISH OIL PO SCH (18:49)
[2015-12-02] MEDS: [UNRECOGNIZED DRUG - OTHER] PO SCH (18:49)
[2015-12-02] MEDS: ZINC GLUCONATE PO SCH (18:49)
[2015-12-02] MEDS: MAGNESIUM OXIDE PO SCH (18:49)
[2015-12-03] MEDS: LEVOTHYROXINE 75 MCG PO SCH (06:09)
[2015-12-03] MEDS: DABIGATRAN 150 MG PO SCH ×2 (10:36→19:02)
[2015-12-03] MEDS: CHOLECALCIFEROL 5000 UNIT PO SCH (10:37)
[2015-12-03] MEDS: Acetaminophen 500 MG Tab PO PRN (10:37)
[2015-12-03] MEDS: UBIDECARENONE 100 MG PO SCH ×2 (10:37→19:02)
[2015-12-03] MEDS: CLOBETASOL 0.05% TOP PRN (10:40)
[2015-12-03] MEDS: ZINC GLUCONATE PO SCH (19:02)
[2015-12-03] MEDS: CALCIUM CARBONATE PO SCH (19:02)
[2015-12-03] MEDS: MAGNESIUM OXIDE PO SCH (19:02)
[2015-12-03] MEDS: [UNRECOGNIZED DRUG - OTHER] PO SCH (19:02)
[2015-12-03] MEDS: OMEGA FISH OIL PO SCH (19:02)
[2015-12-05] MEDS: LEVOTHYROXINE 75 MCG PO SCH ×2 (02:21→06:00)
[2015-12-05] MEDS: DABIGATRAN 150 MG PO SCH ×3 (02:21→18:50)
[2015-12-05] MEDS: CHOLECALCIFEROL 5000 UNIT PO SCH ×2 (02:21→09:43)
[2015-12-05] MEDS: [UNRECOGNIZED DRUG - OTHER] PO SCH ×2 (02:22→18:50)
[2015-12-05] MEDS: OMEGA FISH OIL PO SCH ×2 (02:22→18:49)
[2015-12-05] MEDS: MAGNESIUM OXIDE PO SCH ×2 (02:22→18:50)
[2015-12-05] MEDS: CALCIUM CARBONATE PO SCH ×2 (02:22→18:50)
[2015-12-05] MEDS: UBIDECARENONE 100 MG PO SCH ×3 (02:22→18:50)
[2015-12-05] MEDS: ZINC GLUCONATE PO SCH ×2 (02:22→18:50)
[2015-12-05] MEDS: CONJUGATED ESTROGENS TOP SCH (09:44)
[2015-12-05] MEDS: Acetaminophen 500 MG Tab PO PRN (09:45)
[2015-12-06] MEDS: LEVOTHYROXINE 75 MCG PO SCH (06:30)
[2015-12-06] MEDS: CHOLECALCIFEROL 5000 UNIT PO SCH (10:01)
[2015-12-06] MEDS: UBIDECARENONE 100 MG PO SCH ×2 (10:01→18:23)
[2015-12-06] MEDS: Acetaminophen 500 MG Tab PO PRN (10:02)
[2015-12-06] MEDS: DABIGATRAN 150 MG PO SCH ×2 (10:02→18:24)
[2015-12-06] MEDS: CLOBETASOL 0.05% TOP PRN (10:05)
[2015-12-06] MEDS: MAGNESIUM OXIDE PO SCH (18:23)
[2015-12-06] MEDS: CALCIUM CARBONATE PO SCH (18:23)
[2015-12-06] MEDS: ZINC GLUCONATE PO SCH (18:23)
[2015-12-06] MEDS: [UNRECOGNIZED DRUG - OTHER] PO SCH (18:24)
[2015-12-06] MEDS: OMEGA FISH OIL PO SCH (18:24)
[2015-12-07] MEDS: LEVOTHYROXINE 75 MCG PO SCH (06:56)
[2015-12-07] MEDS: DABIGATRAN 150 MG PO SCH ×2 (08:59→18:22)
[2015-12-07] MEDS: UBIDECARENONE 100 MG PO SCH ×2 (09:00→18:22)
[2015-12-07] MEDS: CHOLECALCIFEROL 5000 UNIT PO SCH (09:00)
[2015-12-07] MEDS: Acetaminophen 500 MG Tab PO PRN (09:01)
[2015-12-07] MEDS: OMEGA FISH OIL PO SCH (18:23)
[2015-12-07] MEDS: ZINC GLUCONATE PO SCH (18:23)
[2015-12-07] MEDS: MAGNESIUM OXIDE PO SCH (18:23)
[2015-12-07] MEDS: CALCIUM CARBONATE PO SCH (18:23)
[2015-12-07] MEDS: [UNRECOGNIZED DRUG - OTHER] PO SCH (18:23)
[2015-12-08] MEDS: DABIGATRAN 150 MG PO SCH ×2 (09:30→18:20)
[2015-12-08] MEDS: UBIDECARENONE 100 MG PO SCH ×2 (09:31→18:20)
[2015-12-08] MEDS: CHOLECALCIFEROL 5000 UNIT PO SCH (09:31)
[2015-12-08] MEDS: Acetaminophen 500 MG Tab PO PRN (09:32)
[2015-12-08] MEDS: CONJUGATED ESTROGENS TOP SCH (09:33)
[2015-12-08] MEDS: ZINC GLUCONATE PO SCH (18:21)
[2015-12-08] MEDS: OMEGA FISH OIL PO SCH (18:21)
[2015-12-08] MEDS: MAGNESIUM OXIDE PO SCH (18:21)
[2015-12-08] MEDS: [UNRECOGNIZED DRUG - OTHER] PO SCH (18:21)
[2015-12-08] MEDS: CALCIUM CARBONATE PO SCH (18:21)
[2015-12-09] MEDS: LEVOTHYROXINE 75 MCG PO SCH (06:15)
[2015-12-09] MEDS: UBIDECARENONE 100 MG PO SCH ×2 (08:47→18:22)
[2015-12-09] MEDS: DABIGATRAN 150 MG PO SCH ×2 (08:47→18:20)
[2015-12-09] MEDS: Acetaminophen 500 MG Tab PO PRN (08:48)
[2015-12-09] MEDS: CHOLECALCIFEROL 5000 UNIT PO SCH (08:48)
[2015-12-09] MEDS: OMEGA FISH OIL PO SCH (18:21)
[2015-12-09] MEDS: MAGNESIUM OXIDE PO SCH (18:21)
[2015-12-09] MEDS: [UNRECOGNIZED DRUG - OTHER] PO SCH (18:21)
[2015-12-09] MEDS: CALCIUM CARBONATE PO SCH (18:21)
[2015-12-09] MEDS: ZINC GLUCONATE PO SCH (18:21)
[2015-12-10] MEDS: LEVOTHYROXINE 75 MCG PO SCH (06:20)
[2015-12-10] MEDS: CHOLECALCIFEROL 5000 UNIT PO SCH (08:41)
[2015-12-10] MEDS: DABIGATRAN 150 MG PO SCH ×2 (08:41→18:32)
[2015-12-10] MEDS: UBIDECARENONE 100 MG PO SCH ×2 (08:42→18:31)
[2015-12-10] MEDS: Acetaminophen 500 MG Tab PO PRN ×2 (08:43→21:23)
[2015-12-10] MEDS: ZINC GLUCONATE PO SCH (18:29)
[2015-12-10] MEDS: MAGNESIUM OXIDE PO SCH (18:29)
[2015-12-10] MEDS: CALCIUM CARBONATE PO SCH (18:29)
[2015-12-10] MEDS: OMEGA FISH OIL PO SCH (18:30)
[2015-12-10] MEDS: [UNRECOGNIZED DRUG - OTHER] PO SCH (18:31)
[2015-12-10] MEDS: CLOBETASOL 0.05% TOP PRN (21:24)
[2015-12-11] MEDS: LEVOTHYROXINE 75 MCG PO SCH (06:42)
[2015-12-11] MEDS: CHOLECALCIFEROL 5000 UNIT PO SCH (09:24)
[2015-12-11] MEDS: DABIGATRAN 150 MG PO SCH ×2 (09:24→18:21)
[2015-12-11] MEDS: UBIDECARENONE 100 MG PO SCH ×2 (09:24→18:21)
[2015-12-11] MEDS: CONJUGATED ESTROGENS TOP SCH (09:24)
[2015-12-11] MEDS: Acetaminophen 500 MG Tab PO PRN (09:25)
[2015-12-11] MEDS: [UNRECOGNIZED DRUG - OTHER] PO SCH (18:21)
[2015-12-11] MEDS: MAGNESIUM OXIDE PO SCH (18:22)
[2015-12-11] MEDS: OMEGA FISH OIL PO SCH (18:22)
[2015-12-11] MEDS: ZINC GLUCONATE PO SCH (18:22)
[2015-12-11] MEDS: CALCIUM CARBONATE PO SCH (18:22)
[2015-12-12] MEDS: LEVOTHYROXINE 75 MCG PO SCH (06:41)
[2015-12-12] MEDS: DABIGATRAN 150 MG PO SCH ×2 (09:44→18:03)
[2015-12-12] MEDS: CHOLECALCIFEROL 5000 UNIT PO SCH (09:44)
[2015-12-12] MEDS: UBIDECARENONE 100 MG PO SCH ×2 (09:45→18:04)
[2015-12-12] MEDS: Acetaminophen 500 MG Tab PO PRN ×2 (09:45→21:26)
[2015-12-12] MEDS: [UNRECOGNIZED DRUG - OTHER] PO SCH (18:03)
[2015-12-12] MEDS: OMEGA FISH OIL PO SCH (18:04)
[2015-12-12] MEDS: ZINC GLUCONATE PO SCH (18:06)
[2015-12-12] MEDS: CALCIUM CARBONATE PO SCH (18:06)
[2015-12-12] MEDS: MAGNESIUM OXIDE PO SCH (18:06)
[2015-12-13] MEDS: LEVOTHYROXINE 75 MCG PO SCH (06:46)
[2015-12-13] MEDS: DABIGATRAN 150 MG PO SCH ×2 (09:45→19:17)
[2015-12-13] MEDS: CHOLECALCIFEROL 5000 UNIT PO SCH (09:45)
[2015-12-13] MEDS: UBIDECARENONE 100 MG PO SCH ×2 (09:46→19:16)
[2015-12-13] MEDS: Acetaminophen 500 MG Tab PO PRN (09:47)
[2015-12-13] MEDS: MAGNESIUM OXIDE PO SCH (19:15)
[2015-12-13] MEDS: [UNRECOGNIZED DRUG - OTHER] PO SCH (19:15)
[2015-12-13] MEDS: ZINC GLUCONATE PO SCH (19:15)
[2015-12-13] MEDS: CALCIUM CARBONATE PO SCH (19:15)
[2015-12-13] MEDS: OMEGA FISH OIL PO SCH (19:16)
[2015-12-14] MEDS: LEVOTHYROXINE 75 MCG PO SCH (06:14)
[2015-12-14] MEDS: CHOLECALCIFEROL 5000 UNIT PO SCH (09:18)
[2015-12-14] MEDS: UBIDECARENONE 100 MG PO SCH ×2 (09:19→18:00)
[2015-12-14] MEDS: DABIGATRAN 150 MG PO SCH ×2 (09:19→18:00)
[2015-12-14] MEDS: CONJUGATED ESTROGENS TOP SCH (09:20)
[2015-12-14] MEDS: Acetaminophen 500 MG Tab PO PRN (09:20)
[2015-12-14] MEDS: CALCIUM CARBONATE PO SCH (18:01)
[2015-12-14] MEDS: [UNRECOGNIZED DRUG - OTHER] PO SCH (18:01)
[2015-12-14] MEDS: ZINC GLUCONATE PO SCH (18:01)
[2015-12-14] MEDS: OMEGA FISH OIL PO SCH (18:01)
[2015-12-14] MEDS: MAGNESIUM OXIDE PO SCH (18:01)
[2015-12-15] MEDS: UBIDECARENONE 100 MG PO SCH ×2 (08:56→22:14)
[2015-12-15] MEDS: CHOLECALCIFEROL 5000 UNIT PO SCH (08:56)
[2015-12-15] MEDS: DABIGATRAN 150 MG PO SCH ×2 (08:56→22:13)
[2015-12-15] MEDS: Acetaminophen 500 MG Tab PO PRN (08:57)
[2015-12-15] MEDS: CLOBETASOL 0.05% TOP PRN (09:04)
[2015-12-15] MEDS: ZINC GLUCONATE PO SCH (22:12)
[2015-12-15] MEDS: CALCIUM CARBONATE PO SCH (22:12)
[2015-12-15] MEDS: MAGNESIUM OXIDE PO SCH (22:12)
[2015-12-15] MEDS: OMEGA FISH OIL PO SCH (22:13)
[2015-12-15] MEDS: [UNRECOGNIZED DRUG - OTHER] PO SCH (22:14)
[2015-12-16] MEDS: LEVOTHYROXINE 75 MCG PO SCH (06:12)
[2015-12-16] MEDS: DABIGATRAN 150 MG PO SCH ×2 (10:22→18:52)
[2015-12-16] MEDS: CHOLECALCIFEROL 5000 UNIT PO SCH (10:24)
[2015-12-16] MEDS: UBIDECARENONE 100 MG PO SCH ×2 (10:25→18:51)
[2015-12-16] MEDS: Acetaminophen 500 MG Tab PO PRN (10:26)
[2015-12-16] MEDS: CALCIUM CARBONATE PO SCH (18:52)
[2015-12-16] MEDS: MAGNESIUM OXIDE PO SCH (18:52)
[2015-12-16] MEDS: OMEGA FISH OIL PO SCH (18:52)
[2015-12-16] MEDS: [UNRECOGNIZED DRUG - OTHER] PO SCH (18:52)
[2015-12-16] MEDS: ZINC GLUCONATE PO SCH (18:52)
[2015-12-17] MEDS: LEVOTHYROXINE 75 MCG PO SCH (06:10)
[2015-12-17] MEDS: CHOLECALCIFEROL 5000 UNIT PO SCH (08:51)
[2015-12-17] MEDS: DABIGATRAN 150 MG PO SCH ×2 (08:51→18:17)
[2015-12-17] MEDS: Acetaminophen 500 MG Tab PO PRN (08:52)
[2015-12-17] MEDS: UBIDECARENONE 100 MG PO SCH ×2 (08:52→18:17)
[2015-12-17] MEDS: CONJUGATED ESTROGENS TOP SCH (08:55)
[2015-12-17] MEDS: [UNRECOGNIZED DRUG - OTHER] TOP SCH (08:55)
[2015-12-17] MEDS: MAGNESIUM OXIDE PO SCH (18:17)
[2015-12-17] MEDS: ZINC GLUCONATE PO SCH (18:17)
[2015-12-17] MEDS: CALCIUM CARBONATE PO SCH (18:17)
[2015-12-17] MEDS: OMEGA FISH OIL PO SCH (18:18)
[2015-12-17] MEDS: [UNRECOGNIZED DRUG - OTHER] PO SCH (18:18)
[2015-12-18] MEDS: LEVOTHYROXINE 75 MCG PO SCH (06:20)
[2015-12-18] MEDS: DABIGATRAN 150 MG PO SCH ×2 (08:59→18:17)
[2015-12-18] MEDS: Acetaminophen 500 MG Tab PO PRN (08:59)
[2015-12-18] MEDS: CHOLECALCIFEROL 5000 UNIT PO SCH (09:00)
[2015-12-18] MEDS: UBIDECARENONE 100 MG PO SCH ×2 (09:00→18:18)
[2015-12-18] MEDS: [UNRECOGNIZED DRUG - OTHER] PO SCH (18:17)
[2015-12-18] MEDS: OMEGA FISH OIL PO SCH (18:18)
[2015-12-18] MEDS: CALCIUM CARBONATE PO SCH (18:18)
[2015-12-18] MEDS: ZINC GLUCONATE PO SCH (18:18)
[2015-12-18] MEDS: MAGNESIUM OXIDE PO SCH (18:18)
[2015-12-19] MEDS: LEVOTHYROXINE 75 MCG PO SCH (06:17)
[2015-12-19] MEDS: DABIGATRAN 150 MG PO SCH ×2 (09:17→18:16)
[2015-12-19] MEDS: UBIDECARENONE 100 MG PO SCH ×2 (09:17→18:18)
[2015-12-19] MEDS: CHOLECALCIFEROL 5000 UNIT PO SCH (09:18)
[2015-12-19] MEDS: Acetaminophen 500 MG Tab PO PRN (09:19)
[2015-12-19] MEDS: OMEGA FISH OIL PO SCH (18:17)
[2015-12-19] MEDS: CALCIUM CARBONATE PO SCH (18:17)
[2015-12-19] MEDS: ZINC GLUCONATE PO SCH (18:17)
[2015-12-19] MEDS: MAGNESIUM OXIDE PO SCH (18:17)
[2015-12-19] MEDS: [UNRECOGNIZED DRUG - OTHER] PO SCH (18:17)
[2015-12-20] MEDS: LEVOTHYROXINE 75 MCG PO SCH (06:39)
[2015-12-20] MEDS: CHOLECALCIFEROL 5000 UNIT PO SCH (09:02)
[2015-12-20] MEDS: DABIGATRAN 150 MG PO SCH ×2 (09:02→18:47)
[2015-12-20] MEDS: UBIDECARENONE 100 MG PO SCH ×2 (09:02→18:48)
[2015-12-20] MEDS: Acetaminophen 500 MG Tab PO PRN (09:03)
[2015-12-20] MEDS: CONJUGATED ESTROGENS TOP SCH (09:06)
[2015-12-20] MEDS: [UNRECOGNIZED DRUG - OTHER] TOP SCH (09:06)
--- NOTE | 2015-12-20 09:57 | PN ---
Progress Note for EMILY SHEETS Date: 12/20/2015 Room #: VM.207 This is an 85-year-old on swing bed for non-skilled care. She has been here since last May. She has done well but she has had some vaginal irritation since August. At first, she used some barrier cream and then tried some clobetasol which initially helped and now has been on maintenance Premarin twice weekly. The burning is getting worse again. She has now been using clobetasol again. She gets some relief from it but then it comes back. Otherwise, she has no other concerns other than it is getting harder to walk with her arthritis. She is breathing well with no cough or chest pain. OBJECTIVE: Vital Signs: Her temperature is 97.7, pulse 59, blood pressure 131/59, respiratory rate 18, and O2 of 95% on room air. General: She is in no acute distress. Heart: Regular rate and rhythm today. Respiratory: Lung sounds are clear to auscultation without crackles or wheezes. Abdomen: Positive bowel sounds. Soft and nontender. Extremities: Warm and dry. No edema. Mental Status: She is alert and orientated x3. DEVOPS CONSULTANT: Externally does show her to have some new ulcers noted to both vulva. There is redness in the area. There is no discharge. She also reports some irritation spreading back towards her buttocks. I did not see any ulcers in that area. ASSESSMENT: 1. Atrophic vaginitis, failing Premarin cream and clobetasol. At this point, I am concerned that she might be actually having something different like a lichen sclerosus. I am going to refer her to Gynecology for further evaluation. 2. Atrial fibrillation with previous transient ischemic attack, doing well on Pradaxa. 3. History of mild thrombocytopenia; chronic leg weakness; osteoarthritis; hypothyroidism; and essential hypertension, controlled. PLAN: At this point, the patient will continue with swing bed cares. She had lab work last month in November that was all acceptable. No lab work due. She will see Gynecology for the vaginal and vulvar concerns; until then, she is going to continue on with the Premarin cream and clobetasol. MKA: 12/20/2015 08:37:25 MODL: 12/20/2015 08:51:55 /[id number]
[2015-12-20] MEDS: OMEGA FISH OIL PO SCH (18:42)
[2015-12-20] MEDS: [UNRECOGNIZED DRUG - OTHER] PO SCH (18:43)
[2015-12-20] MEDS: ZINC GLUCONATE PO SCH (18:46)
[2015-12-20] MEDS: CALCIUM CARBONATE PO SCH (18:46)
[2015-12-20] MEDS: MAGNESIUM OXIDE PO SCH (18:46)
[2015-12-21] MEDS: LEVOTHYROXINE 75 MCG PO SCH (06:04)
[2015-12-21] MEDS: UBIDECARENONE 100 MG PO SCH ×2 (09:31→18:46)
[2015-12-21] MEDS: CHOLECALCIFEROL 5000 UNIT PO SCH (09:31)
[2015-12-21] MEDS: Acetaminophen 500 MG Tab PO PRN (09:32)
[2015-12-21] MEDS: DABIGATRAN 150 MG PO SCH ×2 (09:32→18:46)
[2015-12-21] MEDS: CALCIUM CARBONATE PO SCH (18:45)
[2015-12-21] MEDS: MAGNESIUM OXIDE PO SCH (18:45)
[2015-12-21] MEDS: ZINC GLUCONATE PO SCH (18:45)
[2015-12-21] MEDS: [UNRECOGNIZED DRUG - OTHER] PO SCH (18:45)
[2015-12-21] MEDS: OMEGA FISH OIL PO SCH (18:46)
[2015-12-22] MEDS: CHOLECALCIFEROL 5000 UNIT PO SCH (09:53)
[2015-12-22] MEDS: UBIDECARENONE 100 MG PO SCH ×2 (09:54→18:31)
[2015-12-22] MEDS: DABIGATRAN 150 MG PO SCH ×2 (09:55→18:31)
[2015-12-22] MEDS: Acetaminophen 500 MG Tab PO PRN (09:57)
[2015-12-22] MEDS: CALCIUM CARBONATE PO SCH (18:31)
[2015-12-22] MEDS: ZINC GLUCONATE PO SCH (18:31)
[2015-12-22] MEDS: MAGNESIUM OXIDE PO SCH (18:31)
[2015-12-22] MEDS: [UNRECOGNIZED DRUG - OTHER] PO SCH (18:31)
[2015-12-22] MEDS: OMEGA FISH OIL PO SCH (18:31)
[2015-12-23] MEDS: LEVOTHYROXINE 75 MCG PO SCH (06:33)
[2015-12-23] MEDS: CHOLECALCIFEROL 5000 UNIT PO SCH (09:20)
[2015-12-23] MEDS: UBIDECARENONE 100 MG PO SCH ×2 (09:21→18:32)
[2015-12-23] MEDS: DABIGATRAN 150 MG PO SCH ×2 (09:21→18:31)
[2015-12-23] MEDS: Acetaminophen 500 MG Tab PO PRN (09:23)
[2015-12-23] MEDS: [UNRECOGNIZED DRUG - OTHER] TOP SCH (09:23)
[2015-12-23] MEDS: CONJUGATED ESTROGENS TOP SCH (09:23)
[2015-12-23] MEDS: CALCIUM CARBONATE PO SCH (18:31)
[2015-12-23] MEDS: ZINC GLUCONATE PO SCH (18:31)
[2015-12-23] MEDS: MAGNESIUM OXIDE PO SCH (18:31)
[2015-12-23] MEDS: [UNRECOGNIZED DRUG - OTHER] PO SCH (18:32)
[2015-12-23] MEDS: OMEGA FISH OIL PO SCH (18:32)
[2015-12-24] MEDS: LEVOTHYROXINE 75 MCG PO SCH (06:04)
[2015-12-24] MEDS: UBIDECARENONE 100 MG PO SCH ×2 (09:23→18:20)
[2015-12-24] MEDS: CHOLECALCIFEROL 5000 UNIT PO SCH (09:23)
[2015-12-24] MEDS: DABIGATRAN 150 MG PO SCH ×2 (09:23→18:20)
[2015-12-24] MEDS: Acetaminophen 500 MG Tab PO PRN (09:24)
[2015-12-24] MEDS: CALCIUM CARBONATE PO SCH (18:21)
[2015-12-24] MEDS: ZINC GLUCONATE PO SCH (18:21)
[2015-12-24] MEDS: OMEGA FISH OIL PO SCH (18:21)
[2015-12-24] MEDS: [UNRECOGNIZED DRUG - OTHER] PO SCH (18:21)
[2015-12-24] MEDS: MAGNESIUM OXIDE PO SCH (18:21)
[2015-12-25] MEDS: LEVOTHYROXINE 75 MCG PO SCH (06:21)
[2015-12-25] MEDS: Acetaminophen 500 MG Tab PO PRN (09:10)
[2015-12-25] MEDS: DABIGATRAN 150 MG PO SCH ×2 (09:10→19:22)
[2015-12-25] MEDS: CHOLECALCIFEROL 5000 UNIT PO SCH (09:11)
[2015-12-25] MEDS: UBIDECARENONE 100 MG PO SCH ×2 (09:11→19:23)
[2015-12-25] MEDS: OMEGA FISH OIL PO SCH (19:22)
[2015-12-25] MEDS: CALCIUM CARBONATE PO SCH (19:23)
[2015-12-25] MEDS: ZINC GLUCONATE PO SCH (19:23)
[2015-12-25] MEDS: [UNRECOGNIZED DRUG - OTHER] PO SCH (19:23)
[2015-12-25] MEDS: MAGNESIUM OXIDE PO SCH (19:23)
[2015-12-26] MEDS: LEVOTHYROXINE 75 MCG PO SCH (06:08)
[2015-12-26] MEDS: UBIDECARENONE 100 MG PO SCH ×2 (09:56→19:22)
[2015-12-26] MEDS: DABIGATRAN 150 MG PO SCH ×2 (09:57→19:23)
[2015-12-26] MEDS: [UNRECOGNIZED DRUG - OTHER] TOP SCH (09:57)
[2015-12-26] MEDS: CONJUGATED ESTROGENS TOP SCH (09:57)
[2015-12-26] MEDS: CHOLECALCIFEROL 5000 UNIT PO SCH (09:57)
[2015-12-26] MEDS: Acetaminophen 500 MG Tab PO PRN (09:59)
[2015-12-26] MEDS: OMEGA FISH OIL PO SCH (19:22)
[2015-12-26] MEDS: ZINC GLUCONATE PO SCH (19:23)
[2015-12-26] MEDS: MAGNESIUM OXIDE PO SCH (19:23)
[2015-12-26] MEDS: [UNRECOGNIZED DRUG - OTHER] PO SCH (19:23)
[2015-12-26] MEDS: CALCIUM CARBONATE PO SCH (19:23)
[2015-12-27] MEDS: LEVOTHYROXINE 75 MCG PO SCH (06:01)
[2015-12-27] MEDS: DABIGATRAN 150 MG PO SCH ×2 (10:07→18:46)
[2015-12-27] MEDS: Acetaminophen 500 MG Tab PO PRN (10:08)
[2015-12-27] MEDS: UBIDECARENONE 100 MG PO SCH ×2 (10:08→18:47)
[2015-12-27] MEDS: CHOLECALCIFEROL 5000 UNIT PO SCH (10:08)
[2015-12-27] MEDS: CLOBETASOL 0.05% TOP PRN (10:10)
[2015-12-27] MEDS: MAGNESIUM OXIDE PO SCH (18:47)
[2015-12-27] MEDS: OMEGA FISH OIL PO SCH (18:47)
[2015-12-27] MEDS: ZINC GLUCONATE PO SCH (18:47)
[2015-12-27] MEDS: [UNRECOGNIZED DRUG - OTHER] PO SCH (18:47)
[2015-12-27] MEDS: CALCIUM CARBONATE PO SCH (18:47)
[2015-12-28] MEDS: LEVOTHYROXINE 75 MCG PO SCH (06:05)
[2015-12-28] MEDS: Acetaminophen 500 MG Tab PO PRN (09:24)
[2015-12-28] MEDS: DABIGATRAN 150 MG PO SCH ×2 (09:25→18:50)
[2015-12-28] MEDS: CHOLECALCIFEROL 5000 UNIT PO SCH (09:25)
[2015-12-28] MEDS: UBIDECARENONE 100 MG PO SCH ×2 (09:25→18:50)
[2015-12-28] MEDS: [UNRECOGNIZED DRUG - OTHER] PO SCH (18:48)
[2015-12-28] MEDS: MAGNESIUM OXIDE PO SCH (18:49)
[2015-12-28] MEDS: OMEGA FISH OIL PO SCH (18:49)
[2015-12-28] MEDS: ZINC GLUCONATE PO SCH (18:49)
[2015-12-28] MEDS: CALCIUM CARBONATE PO SCH (18:49)
[2015-12-29] MEDS: UBIDECARENONE 100 MG PO SCH ×2 (09:37→18:06)
[2015-12-29] MEDS: Acetaminophen 500 MG Tab PO PRN ×2 (09:38→18:04)
[2015-12-29] MEDS: DABIGATRAN 150 MG PO SCH ×2 (09:39→18:08)
[2015-12-29] MEDS: [UNRECOGNIZED DRUG - OTHER] TOP SCH (09:40)
[2015-12-29] MEDS: CONJUGATED ESTROGENS TOP SCH (09:40)
[2015-12-29] MEDS: CHOLECALCIFEROL 5000 UNIT PO SCH (09:40)
[2015-12-29] MEDS: CLOBETASOL 0.05% TOP PRN (09:42)
[2015-12-29] MEDS: CALCIUM CARBONATE PO SCH (18:07)
[2015-12-29] MEDS: [UNRECOGNIZED DRUG - OTHER] PO SCH (18:07)
[2015-12-29] MEDS: OMEGA FISH OIL PO SCH (18:07)
[2015-12-29] MEDS: ZINC GLUCONATE PO SCH (18:07)
[2015-12-29] MEDS: MAGNESIUM OXIDE PO SCH (18:07)
[2015-12-30] MEDS: LEVOTHYROXINE 75 MCG PO SCH (06:16)
[2015-12-30] MEDS: Acetaminophen 500 MG Tab PO PRN (09:05)
[2015-12-30] MEDS: UBIDECARENONE 100 MG PO SCH ×2 (09:07→18:22)
[2015-12-30] MEDS: DABIGATRAN 150 MG PO SCH ×2 (09:07→18:27)
[2015-12-30] MEDS: CHOLECALCIFEROL 5000 UNIT PO SCH (09:07)
[2015-12-30] MEDS: CLOBETASOL 0.05% TOP PRN (09:09)
[2015-12-30] MEDS: CALCIUM CARBONATE PO SCH (18:22)
[2015-12-30] MEDS: MAGNESIUM OXIDE PO SCH (18:22)
[2015-12-30] MEDS: [UNRECOGNIZED DRUG - OTHER] PO SCH (18:22)
[2015-12-30] MEDS: ZINC GLUCONATE PO SCH (18:22)
[2015-12-30] MEDS: OMEGA FISH OIL PO SCH (18:23)
[2015-12-31] MEDS: LEVOTHYROXINE 75 MCG PO SCH (06:39)
[2015-12-31] MEDS: Acetaminophen 500 MG Tab PO PRN (09:58)
[2015-12-31] MEDS: CHOLECALCIFEROL 5000 UNIT PO SCH (09:58)
[2015-12-31] MEDS: DABIGATRAN 150 MG PO SCH ×2 (09:58→18:26)
[2015-12-31] MEDS: UBIDECARENONE 100 MG PO SCH ×2 (09:58→18:26)
[2015-12-31] MEDS: CALCIUM CARBONATE PO SCH (18:26)
[2015-12-31] MEDS: MAGNESIUM OXIDE PO SCH (18:26)
[2015-12-31] MEDS: ZINC GLUCONATE PO SCH (18:26)
[2015-12-31] MEDS: [UNRECOGNIZED DRUG - OTHER] PO SCH (18:26)
[2015-12-31] MEDS: OMEGA FISH OIL PO SCH (18:26)
[2016-01-01] MEDS: LEVOTHYROXINE 75 MCG PO SCH (06:31)
[2016-01-01] MEDS: CHOLECALCIFEROL 5000 UNIT PO SCH (09:37)
[2016-01-01] MEDS: Acetaminophen 500 MG Tab PO PRN (09:37)
[2016-01-01] MEDS: DABIGATRAN 150 MG PO SCH ×2 (09:37→18:00)
[2016-01-01] MEDS: UBIDECARENONE 100 MG PO SCH ×2 (09:38→18:00)
[2016-01-01] MEDS: CONJUGATED ESTROGENS TOP SCH (09:39)
[2016-01-01] MEDS: [UNRECOGNIZED DRUG - OTHER] TOP SCH (09:39)
[2016-01-01] MEDS: [UNRECOGNIZED DRUG - OTHER] PO SCH (18:02)
[2016-01-01] MEDS: ZINC GLUCONATE PO SCH (18:02)
[2016-01-01] MEDS: MAGNESIUM OXIDE PO SCH (18:02)
[2016-01-01] MEDS: CALCIUM CARBONATE PO SCH (18:02)
[2016-01-01] MEDS: OMEGA FISH OIL PO SCH (18:03)
[2016-01-02] MEDS: LEVOTHYROXINE 75 MCG PO SCH (06:30)
[2016-01-02] MEDS: UBIDECARENONE 100 MG PO SCH ×2 (09:23→18:08)
[2016-01-02] MEDS: CHOLECALCIFEROL 5000 UNIT PO SCH (09:24)
[2016-01-02] MEDS: Acetaminophen 500 MG Tab PO PRN (09:25)
[2016-01-02] MEDS: DABIGATRAN 150 MG PO SCH ×2 (09:25→18:08)
[2016-01-02] MEDS: [UNRECOGNIZED DRUG - OTHER] PO SCH (18:08)
[2016-01-02] MEDS: MAGNESIUM OXIDE PO SCH (18:08)
[2016-01-02] MEDS: OMEGA FISH OIL PO SCH (18:08)
[2016-01-02] MEDS: ZINC GLUCONATE PO SCH (18:08)
[2016-01-02] MEDS: CALCIUM CARBONATE PO SCH (18:08)
[2016-01-03] MEDS: LEVOTHYROXINE 75 MCG PO SCH (06:02)
[2016-01-03] MEDS: CHOLECALCIFEROL 5000 UNIT PO SCH (10:36)
[2016-01-03] MEDS: DABIGATRAN 150 MG PO SCH ×2 (10:36→18:44)
[2016-01-03] MEDS: UBIDECARENONE 100 MG PO SCH ×2 (10:37→18:46)
[2016-01-03] MEDS: CLOBETASOL 0.05% TOP PRN (10:38)
[2016-01-03] MEDS: Acetaminophen 500 MG Tab PO PRN (10:40)
[2016-01-03] MEDS: ZINC GLUCONATE PO SCH (18:45)
[2016-01-03] MEDS: MAGNESIUM OXIDE PO SCH (18:45)
[2016-01-03] MEDS: OMEGA FISH OIL PO SCH (18:45)
[2016-01-03] MEDS: CALCIUM CARBONATE PO SCH (18:45)
[2016-01-03] MEDS: [UNRECOGNIZED DRUG - OTHER] PO SCH (18:45)
[2016-01-04] MEDS: LEVOTHYROXINE 75 MCG PO SCH (06:14)
[2016-01-04] MEDS: DABIGATRAN 150 MG PO SCH ×2 (09:40→18:06)
[2016-01-04] MEDS: UBIDECARENONE 100 MG PO SCH ×2 (09:40→18:08)
[2016-01-04] MEDS: CHOLECALCIFEROL 5000 UNIT PO SCH (09:40)
[2016-01-04] MEDS: Acetaminophen 500 MG Tab PO PRN (09:41)
[2016-01-04] MEDS: [UNRECOGNIZED DRUG - OTHER] TOP SCH (09:43)
[2016-01-04] MEDS: CONJUGATED ESTROGENS TOP SCH (09:43)
[2016-01-04] MEDS: ZINC GLUCONATE PO SCH (18:07)
[2016-01-04] MEDS: MAGNESIUM OXIDE PO SCH (18:07)
[2016-01-04] MEDS: [UNRECOGNIZED DRUG - OTHER] PO SCH (18:07)
[2016-01-04] MEDS: CALCIUM CARBONATE PO SCH (18:07)
[2016-01-04] MEDS: OMEGA FISH OIL PO SCH (18:08)
[2016-01-05] MEDS: Acetaminophen 500 MG Tab PO PRN (09:23)
[2016-01-05] MEDS: DABIGATRAN 150 MG PO SCH ×2 (09:26→18:02)
[2016-01-05] MEDS: CHOLECALCIFEROL 5000 UNIT PO SCH (09:26)
[2016-01-05] MEDS: UBIDECARENONE 100 MG PO SCH ×2 (09:27→18:03)
[2016-01-05] MEDS: OMEGA FISH OIL PO SCH (18:03)
[2016-01-05] MEDS: MAGNESIUM OXIDE PO SCH (18:03)
[2016-01-05] MEDS: [UNRECOGNIZED DRUG - OTHER] PO SCH (18:03)
[2016-01-05] MEDS: ZINC GLUCONATE PO SCH (18:03)
[2016-01-05] MEDS: CALCIUM CARBONATE PO SCH (18:03)
[2016-01-06] MEDS: LEVOTHYROXINE 75 MCG PO SCH (06:41)
[2016-01-06] MEDS: CHOLECALCIFEROL 5000 UNIT PO SCH (09:26)
[2016-01-06] MEDS: UBIDECARENONE 100 MG PO SCH ×2 (09:27→18:23)
[2016-01-06] MEDS: DABIGATRAN 150 MG PO SCH ×2 (09:27→18:23)
[2016-01-06] MEDS: Acetaminophen 500 MG Tab PO PRN (09:28)
[2016-01-06] MEDS: ZINC GLUCONATE PO SCH (18:22)
[2016-01-06] MEDS: CALCIUM CARBONATE PO SCH (18:22)
[2016-01-06] MEDS: [UNRECOGNIZED DRUG - OTHER] PO SCH (18:22)
[2016-01-06] MEDS: MAGNESIUM OXIDE PO SCH (18:22)
[2016-01-06] MEDS: OMEGA FISH OIL PO SCH (18:22)
[2016-01-07] MEDS: LEVOTHYROXINE 75 MCG PO SCH (06:31)
[2016-01-07] MEDS: CHOLECALCIFEROL 5000 UNIT PO SCH (09:52)
[2016-01-07] MEDS: UBIDECARENONE 100 MG PO SCH ×2 (09:52→18:19)
[2016-01-07] MEDS: DABIGATRAN 150 MG PO SCH ×2 (09:52→18:18)
[2016-01-07] MEDS: CONJUGATED ESTROGENS TOP SCH (09:53)
[2016-01-07] MEDS: [UNRECOGNIZED DRUG - OTHER] TOP SCH (09:53)
[2016-01-07] MEDS: Acetaminophen 500 MG Tab PO PRN (09:54)
[2016-01-07] MEDS: CALCIUM CARBONATE PO SCH (18:19)
[2016-01-07] MEDS: MAGNESIUM OXIDE PO SCH (18:19)
[2016-01-07] MEDS: ZINC GLUCONATE PO SCH (18:19)
[2016-01-07] MEDS: OMEGA FISH OIL PO SCH (18:19)
[2016-01-07] MEDS: [UNRECOGNIZED DRUG - OTHER] PO SCH (18:21)
[2016-01-08] MEDS: LEVOTHYROXINE 75 MCG PO SCH (06:57)
[2016-01-08] MEDS: Acetaminophen 500 MG Tab PO PRN (09:56)
[2016-01-08] MEDS: DABIGATRAN 150 MG PO SCH ×2 (09:57→17:58)
[2016-01-08] MEDS: CHOLECALCIFEROL 5000 UNIT PO SCH (09:57)
[2016-01-08] MEDS: UBIDECARENONE 100 MG PO SCH ×2 (09:57→17:59)
[2016-01-08] MEDS: MAGNESIUM OXIDE PO SCH (17:59)
[2016-01-08] MEDS: [UNRECOGNIZED DRUG - OTHER] PO SCH (17:59)
[2016-01-08] MEDS: ZINC GLUCONATE PO SCH (17:59)
[2016-01-08] MEDS: CALCIUM CARBONATE PO SCH (17:59)
[2016-01-08] MEDS: OMEGA FISH OIL PO SCH (17:59)
[2016-01-09] MEDS: LEVOTHYROXINE 75 MCG PO SCH (06:04)
[2016-01-09] MEDS: Acetaminophen 500 MG Tab PO PRN (09:52)
[2016-01-09] MEDS: DABIGATRAN 150 MG PO SCH ×2 (09:52→18:16)
[2016-01-09] MEDS: CHOLECALCIFEROL 5000 UNIT PO SCH (09:53)
[2016-01-09] MEDS: UBIDECARENONE 100 MG PO SCH ×2 (09:53→18:17)
[2016-01-09] MEDS: [UNRECOGNIZED DRUG - OTHER] PO SCH (18:18)
[2016-01-09] MEDS: CALCIUM CARBONATE PO SCH (18:18)
[2016-01-09] MEDS: ZINC GLUCONATE PO SCH (18:18)
[2016-01-09] MEDS: OMEGA FISH OIL PO SCH (18:18)
[2016-01-09] MEDS: MAGNESIUM OXIDE PO SCH (18:18)
[2016-01-10] MEDS: LEVOTHYROXINE 75 MCG PO SCH (06:17)
[2016-01-10] MEDS: DABIGATRAN 150 MG PO SCH ×2 (09:08→20:04)
[2016-01-10] MEDS: UBIDECARENONE 100 MG PO SCH ×2 (09:08→20:06)
[2016-01-10] MEDS: Acetaminophen 500 MG Tab PO PRN (09:09)
[2016-01-10] MEDS: CHOLECALCIFEROL 5000 UNIT PO SCH (09:09)
[2016-01-10] MEDS: CONJUGATED ESTROGENS TOP SCH (09:12)
[2016-01-10] MEDS: [UNRECOGNIZED DRUG - OTHER] TOP SCH (09:12)
[2016-01-10] MEDS: OMEGA FISH OIL PO SCH (20:05)
[2016-01-10] MEDS: CALCIUM CARBONATE PO SCH (20:06)
[2016-01-10] MEDS: [UNRECOGNIZED DRUG - OTHER] PO SCH (20:06)
[2016-01-10] MEDS: ZINC GLUCONATE PO SCH (20:06)
[2016-01-10] MEDS: MAGNESIUM OXIDE PO SCH (20:06)
[2016-01-11] MEDS: LEVOTHYROXINE 75 MCG PO SCH (06:45)
[2016-01-11] MEDS: CHOLECALCIFEROL 5000 UNIT PO SCH (09:25)
[2016-01-11] MEDS: DABIGATRAN 150 MG PO SCH ×2 (09:25→18:01)
[2016-01-11] MEDS: UBIDECARENONE 100 MG PO SCH ×2 (09:26→18:01)
[2016-01-11] MEDS: Acetaminophen 500 MG Tab PO PRN (09:29)
--- NOTE | 2016-01-11 09:57 | PN ---
Progress Note for EMILY SHEETS Date: 01/11/2016 Room #: VM.207 SUBJECTIVE: This is an 85-year-old on swing bed for non-skilled care since last May. Her vaginal irritation has been better, but a little bit worse again today. She has been using barrier creams, clobetasol, Premarin every 3 days. She otherwise is having some red blotchy rashes that come and go. They do not bother her that much. It has been going on for a while. It is not getting any worse. She has no chest pain, no cough, no shortness of breath. OBJECTIVE: VITAL SIGNS: Temperature is 98, pulse 95, blood pressure 123/73, respiratory rate 18, and O2 of 95% on room air. General: She is in no acute distress. Heart: Irregularly irregular. Lungs: Sounds are clear to auscultation bilaterally without any crackles or wheezes. Extremities: Warm and dry. No edema. Neurologic: Mental status, alert and orientated x3. CELL BIOLOGIST: Externally, she has no ulcers. She has some mild redness and atrophy. She has no vulvar edema. ASSESSMENT: 1. Atrophic vaginitis. She has a consult with gynecology coming up on the . She is still using barrier cream, Premarin, and clobetasol. 2. Atrial fibrillation with previous transient ischemic attack, on Pradaxa. 3. Mild thrombocytopenia; chronic leg weakness; severe osteoarthritis, especially in the knees; hypothyroidism; and essential hypertension, controlled. PLAN: At this point, the patient will continue swing bed cares. I am going to try doing baths for her in the tub twice weekly instead of once weekly. No lab work is due. Follow up with gynecology. Recertify in 1 month. MKA: 01/11/2016 09:21:18 MODL: 01/11/2016 09:53:15 /[id number]
[2016-01-11] MEDS: [UNRECOGNIZED DRUG - OTHER] PO SCH (18:02)
[2016-01-11] MEDS: OMEGA FISH OIL PO SCH (18:02)
[2016-01-11] MEDS: ZINC GLUCONATE PO SCH (18:03)
[2016-01-11] MEDS: CALCIUM CARBONATE PO SCH (18:03)
[2016-01-11] MEDS: MAGNESIUM OXIDE PO SCH (18:03)
[2016-01-12] MEDS: DABIGATRAN 150 MG PO SCH ×2 (09:29→18:19)
[2016-01-12] MEDS: UBIDECARENONE 100 MG PO SCH ×2 (09:30→18:20)
[2016-01-12] MEDS: CHOLECALCIFEROL 5000 UNIT PO SCH (09:30)
[2016-01-12] MEDS: Acetaminophen 500 MG Tab PO PRN ×2 (09:31→14:17)
[2016-01-12] MEDS: [UNRECOGNIZED DRUG - OTHER] PO SCH (18:19)
[2016-01-12] MEDS: CALCIUM CARBONATE PO SCH (18:20)
[2016-01-12] MEDS: ZINC GLUCONATE PO SCH (18:20)
[2016-01-12] MEDS: OMEGA FISH OIL PO SCH (18:20)
[2016-01-12] MEDS: MAGNESIUM OXIDE PO SCH (18:20)
[2016-01-13] MEDS: LEVOTHYROXINE 75 MCG PO SCH (06:23)
[2016-01-13] MEDS: Acetaminophen 500 MG Tab PO PRN (08:57)
[2016-01-13] MEDS: DABIGATRAN 150 MG PO SCH ×2 (08:57→18:16)
[2016-01-13] MEDS: UBIDECARENONE 100 MG PO SCH ×2 (08:58→18:16)
[2016-01-13] MEDS: CHOLECALCIFEROL 5000 UNIT PO SCH (08:58)
[2016-01-13] MEDS: CLOBETASOL 0.05% TOP PRN (08:59)
[2016-01-13] MEDS: CONJUGATED ESTROGENS TOP SCH (08:59)
[2016-01-13] MEDS: [UNRECOGNIZED DRUG - OTHER] TOP SCH (08:59)
[2016-01-13] MEDS: MAGNESIUM OXIDE PO SCH (18:16)
[2016-01-13] MEDS: ZINC GLUCONATE PO SCH (18:16)
[2016-01-13] MEDS: CALCIUM CARBONATE PO SCH (18:16)
[2016-01-13] MEDS: [UNRECOGNIZED DRUG - OTHER] PO SCH (18:17)
[2016-01-13] MEDS: OMEGA FISH OIL PO SCH (18:17)
[2016-01-14] MEDS: LEVOTHYROXINE 75 MCG PO SCH (06:17)
[2016-01-14] MEDS: DABIGATRAN 150 MG PO SCH ×2 (10:56→18:28)
[2016-01-14] MEDS: CHOLECALCIFEROL 5000 UNIT PO SCH (10:56)
[2016-01-14] MEDS: UBIDECARENONE 100 MG PO SCH ×2 (10:56→18:28)
[2016-01-14] MEDS: Acetaminophen 500 MG Tab PO PRN (10:59)
[2016-01-14] MEDS: CALCIUM CARBONATE PO SCH (18:28)
[2016-01-14] MEDS: OMEGA FISH OIL PO SCH (18:28)
[2016-01-14] MEDS: ZINC GLUCONATE PO SCH (18:28)
[2016-01-14] MEDS: MAGNESIUM OXIDE PO SCH (18:28)
[2016-01-14] MEDS: [UNRECOGNIZED DRUG - OTHER] PO SCH (18:29)
[2016-01-15] MEDS: LEVOTHYROXINE 75 MCG PO SCH (06:49)
[2016-01-15] MEDS: DABIGATRAN 150 MG PO SCH ×2 (10:15→18:59)
[2016-01-15] MEDS: UBIDECARENONE 100 MG PO SCH ×2 (10:16→18:59)
[2016-01-15] MEDS: CHOLECALCIFEROL 5000 UNIT PO SCH (10:16)
[2016-01-15] MEDS: Acetaminophen 500 MG Tab PO PRN (10:19)
[2016-01-15] MEDS: OMEGA FISH OIL PO SCH (18:59)
[2016-01-15] MEDS: ZINC GLUCONATE PO SCH (18:59)
[2016-01-15] MEDS: MAGNESIUM OXIDE PO SCH (18:59)
[2016-01-15] MEDS: [UNRECOGNIZED DRUG - OTHER] PO SCH (18:59)
[2016-01-15] MEDS: CALCIUM CARBONATE PO SCH (18:59)
[2016-01-16] MEDS: LEVOTHYROXINE 75 MCG PO SCH (06:26)
[2016-01-16] MEDS: CHOLECALCIFEROL 5000 UNIT PO SCH (10:44)
[2016-01-16] MEDS: DABIGATRAN 150 MG PO SCH ×2 (10:44→19:01)
[2016-01-16] MEDS: [UNRECOGNIZED DRUG - OTHER] TOP SCH (10:44)
[2016-01-16] MEDS: CONJUGATED ESTROGENS TOP SCH (10:44)
[2016-01-16] MEDS: UBIDECARENONE 100 MG PO SCH ×2 (10:44→19:01)
[2016-01-16] MEDS: Acetaminophen 500 MG Tab PO PRN ×2 (10:49→17:56)
[2016-01-16] MEDS: [UNRECOGNIZED DRUG - OTHER] PO SCH (19:01)
[2016-01-16] MEDS: OMEGA FISH OIL PO SCH (19:02)
[2016-01-16] MEDS: MAGNESIUM OXIDE PO SCH (19:02)
[2016-01-16] MEDS: CALCIUM CARBONATE PO SCH (19:02)
[2016-01-16] MEDS: ZINC GLUCONATE PO SCH (19:02)
[2016-01-17] MEDS: LEVOTHYROXINE 75 MCG PO SCH (06:09)
[2016-01-17] MEDS: DABIGATRAN 150 MG PO SCH ×2 (08:00→18:22)
[2016-01-17] MEDS: CHOLECALCIFEROL 5000 UNIT PO SCH (09:12)
[2016-01-17] MEDS: UBIDECARENONE 100 MG PO SCH ×2 (09:13→18:24)
[2016-01-17] MEDS: Acetaminophen 500 MG Tab PO PRN (09:15)
[2016-01-17] MEDS: MAGNESIUM OXIDE PO SCH (18:23)
[2016-01-17] MEDS: CALCIUM CARBONATE PO SCH (18:23)
[2016-01-17] MEDS: OMEGA FISH OIL PO SCH (18:23)
[2016-01-17] MEDS: ZINC GLUCONATE PO SCH (18:23)
[2016-01-17] MEDS: [UNRECOGNIZED DRUG - OTHER] PO SCH (18:23)
[2016-01-18] MEDS: LEVOTHYROXINE 75 MCG PO SCH (06:23)
[2016-01-18] MEDS: Acetaminophen 500 MG Tab PO PRN (09:35)
[2016-01-18] MEDS: DABIGATRAN 150 MG PO SCH ×3 (09:35→18:34)
[2016-01-18] MEDS: CHOLECALCIFEROL 5000 UNIT PO SCH ×2 (09:36→10:09)
[2016-01-18] MEDS: UBIDECARENONE 100 MG PO SCH ×3 (09:36→18:36)
[2016-01-18] MEDS: CONJUGATED ESTROGENS TOP SCH (10:08)
[2016-01-18] MEDS: [UNRECOGNIZED DRUG - OTHER] TOP SCH (10:08)
[2016-01-18] MEDS: ZINC GLUCONATE PO SCH (18:35)
[2016-01-18] MEDS: MAGNESIUM OXIDE PO SCH (18:35)
[2016-01-18] MEDS: [UNRECOGNIZED DRUG - OTHER] PO SCH (18:35)
[2016-01-18] MEDS: CALCIUM CARBONATE PO SCH (18:35)
[2016-01-18] MEDS: OMEGA FISH OIL PO SCH (18:35)
[2016-01-19] MEDS: Acetaminophen 500 MG Tab PO PRN (09:35)
[2016-01-19] MEDS: DABIGATRAN 150 MG PO SCH ×2 (09:36→18:05)
[2016-01-19] MEDS: CHOLECALCIFEROL 5000 UNIT PO SCH (09:36)
[2016-01-19] MEDS: UBIDECARENONE 100 MG PO SCH ×2 (09:37→18:05)
[2016-01-19] MEDS: CONJUGATED ESTROGENS TOP SCH (09:43)
[2016-01-19] MEDS: [UNRECOGNIZED DRUG - OTHER] TOP SCH (09:43)
[2016-01-19] MEDS: ZINC GLUCONATE PO SCH (18:06)
[2016-01-19] MEDS: CALCIUM CARBONATE PO SCH (18:06)
[2016-01-19] MEDS: MAGNESIUM OXIDE PO SCH (18:06)
[2016-01-19] MEDS: [UNRECOGNIZED DRUG - OTHER] PO SCH (18:06)
[2016-01-19] MEDS: OMEGA FISH OIL PO SCH (18:06)
[2016-01-20] MEDS: LEVOTHYROXINE 75 MCG PO SCH (06:19)
[2016-01-20] MEDS: Acetaminophen 500 MG Tab PO PRN ×2 (09:27→15:10)
[2016-01-20] MEDS: DABIGATRAN 150 MG PO SCH ×2 (09:28→18:22)
[2016-01-20] MEDS: CHOLECALCIFEROL 5000 UNIT PO SCH (09:28)
[2016-01-20] MEDS: UBIDECARENONE 100 MG PO SCH ×2 (09:29→18:23)
[2016-01-20] MEDS: ZINC GLUCONATE PO SCH (18:23)
[2016-01-20] MEDS: CALCIUM CARBONATE PO SCH (18:23)
[2016-01-20] MEDS: [UNRECOGNIZED DRUG - OTHER] PO SCH (18:23)
[2016-01-20] MEDS: MAGNESIUM OXIDE PO SCH (18:23)
[2016-01-20] MEDS: OMEGA FISH OIL PO SCH (18:24)
[2016-01-21] MEDS: LEVOTHYROXINE 75 MCG PO SCH (06:14)
[2016-01-21] MEDS: CHOLECALCIFEROL 5000 UNIT PO SCH (09:31)
[2016-01-21] MEDS: DABIGATRAN 150 MG PO SCH ×2 (09:31→18:28)
[2016-01-21] MEDS: UBIDECARENONE 100 MG PO SCH ×2 (09:31→18:29)
[2016-01-21] MEDS: CONJUGATED ESTROGENS TOP SCH (09:32)
[2016-01-21] MEDS: Acetaminophen 500 MG Tab PO PRN ×2 (09:32→21:00)
[2016-01-21] MEDS: [UNRECOGNIZED DRUG - OTHER] TOP SCH (09:32)
[2016-01-21] MEDS: MAGNESIUM OXIDE PO SCH (18:28)
[2016-01-21] MEDS: ZINC GLUCONATE PO SCH (18:28)
[2016-01-21] MEDS: CALCIUM CARBONATE PO SCH (18:28)
[2016-01-21] MEDS: [UNRECOGNIZED DRUG - OTHER] PO SCH (18:29)
[2016-01-21] MEDS: OMEGA FISH OIL PO SCH (18:29)
[2016-01-22] MEDS: LEVOTHYROXINE 75 MCG PO SCH (06:44)
[2016-01-22] MEDS: DABIGATRAN 150 MG PO SCH ×2 (09:43→18:05)
[2016-01-22] MEDS: CHOLECALCIFEROL 5000 UNIT PO SCH (09:44)
[2016-01-22] MEDS: UBIDECARENONE 100 MG PO SCH ×2 (09:44→18:06)
[2016-01-22] MEDS: Acetaminophen 500 MG Tab PO PRN (09:45)
[2016-01-22] MEDS: Acetaminophen 650 MG Tab.ER PO PRN (14:23)
[2016-01-22] MEDS: OMEGA FISH OIL PO SCH (18:06)
[2016-01-22] MEDS: [UNRECOGNIZED DRUG - OTHER] PO SCH (18:07)
[2016-01-22] MEDS: MAGNESIUM OXIDE PO SCH (18:07)
[2016-01-22] MEDS: CALCIUM CARBONATE PO SCH (18:07)
[2016-01-22] MEDS: ZINC GLUCONATE PO SCH (18:07)
[2016-01-23] MEDS: LEVOTHYROXINE 75 MCG PO SCH (06:01)
[2016-01-23] MEDS: DABIGATRAN 150 MG PO SCH ×2 (10:10→21:56)
[2016-01-23] MEDS: UBIDECARENONE 100 MG PO SCH ×2 (10:11→21:57)
[2016-01-23] MEDS: CHOLECALCIFEROL 5000 UNIT PO SCH (10:11)
[2016-01-23] MEDS: Acetaminophen 650 MG Tab.ER PO PRN (10:11)
[2016-01-23] MEDS: MAGNESIUM OXIDE PO SCH (21:55)
[2016-01-23] MEDS: CALCIUM CARBONATE PO SCH (21:55)
[2016-01-23] MEDS: ZINC GLUCONATE PO SCH (21:55)
[2016-01-23] MEDS: OMEGA FISH OIL PO SCH (21:56)
[2016-01-23] MEDS: [UNRECOGNIZED DRUG - OTHER] PO SCH (21:57)
[2016-01-24] MEDS: LEVOTHYROXINE 75 MCG PO SCH (06:27)
[2016-01-24] MEDS: UBIDECARENONE 100 MG PO SCH ×2 (10:08→18:12)
[2016-01-24] MEDS: CHOLECALCIFEROL 5000 UNIT PO SCH (10:08)
[2016-01-24] MEDS: DABIGATRAN 150 MG PO SCH ×2 (10:08→18:12)
[2016-01-24] MEDS: [UNRECOGNIZED DRUG - OTHER] TOP SCH (10:09)
[2016-01-24] MEDS: CLOBETASOL 0.05% TOP PRN (10:09)
[2016-01-24] MEDS: CONJUGATED ESTROGENS TOP SCH (10:09)
[2016-01-24] MEDS: Menthol/Methyl Salicylate 85 GM Tube TOP PRN (10:10)
[2016-01-24] MEDS: Acetaminophen 650 MG Tab.ER PO PRN (10:10)
[2016-01-24] MEDS: ZINC GLUCONATE PO SCH (18:12)
[2016-01-24] MEDS: CALCIUM CARBONATE PO SCH (18:12)
[2016-01-24] MEDS: MAGNESIUM OXIDE PO SCH (18:12)
[2016-01-24] MEDS: OMEGA FISH OIL PO SCH (18:13)
[2016-01-24] MEDS: [UNRECOGNIZED DRUG - OTHER] PO SCH (18:13)
[2016-01-25] MEDS: LEVOTHYROXINE 75 MCG PO SCH (06:39)
[2016-01-25] MEDS: Acetaminophen 650 MG Tab.ER PO PRN (09:24)
[2016-01-25] MEDS: UBIDECARENONE 100 MG PO SCH ×2 (09:24→18:07)
[2016-01-25] MEDS: DABIGATRAN 150 MG PO SCH ×2 (09:24→18:07)
[2016-01-25] MEDS: CHOLECALCIFEROL 5000 UNIT PO SCH (09:24)
[2016-01-25] MEDS: OMEGA FISH OIL PO SCH (18:07)
[2016-01-25] MEDS: [UNRECOGNIZED DRUG - OTHER] PO SCH (18:07)
[2016-01-25] MEDS: CALCIUM CARBONATE PO SCH (18:08)
[2016-01-25] MEDS: MAGNESIUM OXIDE PO SCH (18:08)
[2016-01-25] MEDS: ZINC GLUCONATE PO SCH (18:08)
[2016-01-26] MEDS: UBIDECARENONE 100 MG PO SCH ×2 (09:34→18:22)
[2016-01-26] MEDS: DABIGATRAN 150 MG PO SCH ×2 (09:34→18:22)
[2016-01-26] MEDS: CHOLECALCIFEROL 5000 UNIT PO SCH (09:34)
[2016-01-26] MEDS: Acetaminophen 650 MG Tab.ER PO PRN (09:35)
[2016-01-26] MEDS: MAGNESIUM OXIDE PO SCH (18:23)
[2016-01-26] MEDS: [UNRECOGNIZED DRUG - OTHER] PO SCH (18:23)
[2016-01-26] MEDS: OMEGA FISH OIL PO SCH (18:23)
[2016-01-26] MEDS: CALCIUM CARBONATE PO SCH (18:23)
[2016-01-26] MEDS: ZINC GLUCONATE PO SCH (18:23)
[2016-01-27] MEDS: LEVOTHYROXINE 75 MCG PO SCH (06:29)
[2016-01-27] MEDS: DABIGATRAN 150 MG PO SCH ×3 (08:56→18:20)
[2016-01-27] MEDS: CHOLECALCIFEROL 5000 UNIT PO SCH ×2 (08:57→09:00)
[2016-01-27] MEDS: Acetaminophen 650 MG Tab.ER PO PRN (08:57)
[2016-01-27] MEDS: UBIDECARENONE 100 MG PO SCH ×2 (08:59→18:20)
[2016-01-27] MEDS: [UNRECOGNIZED DRUG - OTHER] TOP SCH (09:00)
[2016-01-27] MEDS: CONJUGATED ESTROGENS TOP SCH (09:00)
[2016-01-27] MEDS: CALCIUM CARBONATE PO SCH (18:20)
[2016-01-27] MEDS: MAGNESIUM OXIDE PO SCH (18:20)
[2016-01-27] MEDS: OMEGA FISH OIL PO SCH (18:20)
[2016-01-27] MEDS: [UNRECOGNIZED DRUG - OTHER] PO SCH (18:20)
[2016-01-27] MEDS: ZINC GLUCONATE PO SCH (18:20)
[2016-01-28] MEDS: LEVOTHYROXINE 75 MCG PO SCH (06:33)
[2016-01-28] MEDS: UBIDECARENONE 100 MG PO SCH ×3 (09:47→18:11)
[2016-01-28] MEDS: CHOLECALCIFEROL 5000 UNIT PO SCH (09:47)
[2016-01-28] MEDS: DABIGATRAN 150 MG PO SCH ×3 (09:47→18:11)
[2016-01-28] MEDS: Acetaminophen 650 MG Tab.ER PO PRN (09:48)
[2016-01-28] MEDS: ZINC GLUCONATE PO SCH ×2 (17:54→18:11)
[2016-01-28] MEDS: MAGNESIUM OXIDE PO SCH ×2 (17:54→18:11)
[2016-01-28] MEDS: CALCIUM CARBONATE PO SCH ×2 (17:54→18:11)
[2016-01-28] MEDS: [UNRECOGNIZED DRUG - OTHER] PO SCH ×2 (17:54→18:11)
[2016-01-28] MEDS: OMEGA FISH OIL PO SCH ×2 (17:54→18:11)
[2016-01-29] MEDS: LEVOTHYROXINE 75 MCG PO SCH (06:41)
[2016-01-29] MEDS: UBIDECARENONE 100 MG PO SCH ×2 (09:49→18:08)
[2016-01-29] MEDS: DABIGATRAN 150 MG PO SCH ×2 (09:49→18:06)
[2016-01-29] MEDS: CHOLECALCIFEROL 5000 UNIT PO SCH (09:50)
[2016-01-29] MEDS: Acetaminophen 650 MG Tab.ER PO PRN (09:50)
[2016-01-29] MEDS: ZINC GLUCONATE PO SCH (18:07)
[2016-01-29] MEDS: CALCIUM CARBONATE PO SCH (18:07)
[2016-01-29] MEDS: MAGNESIUM OXIDE PO SCH (18:07)
[2016-01-29] MEDS: [UNRECOGNIZED DRUG - OTHER] PO SCH (18:08)
[2016-01-29] MEDS: OMEGA FISH OIL PO SCH (18:08)
[2016-01-29] MEDS: Betamethasone Dipropionate/Clotrimazole 0.05-1% Crm 15 GM Tube TOP SCH (22:39)
[2016-01-30] MEDS: LEVOTHYROXINE 75 MCG PO SCH ×2 (05:44→06:20)
[2016-01-30] MEDS: DABIGATRAN 150 MG PO SCH ×2 (10:03→20:51)
[2016-01-30] MEDS: UBIDECARENONE 100 MG PO SCH ×2 (10:04→20:53)
[2016-01-30] MEDS: CHOLECALCIFEROL 5000 UNIT PO SCH (10:04)
[2016-01-30] MEDS: Acetaminophen 650 MG Tab.ER PO PRN ×2 (10:05→15:11)
[2016-01-30] MEDS: CONJUGATED ESTROGENS TOP SCH (10:05)
[2016-01-30] MEDS: [UNRECOGNIZED DRUG - OTHER] TOP SCH (10:05)
[2016-01-30] MEDS: ZINC GLUCONATE PO SCH (20:49)
[2016-01-30] MEDS: MAGNESIUM OXIDE PO SCH (20:49)
[2016-01-30] MEDS: CALCIUM CARBONATE PO SCH (20:49)
[2016-01-30] MEDS: [UNRECOGNIZED DRUG - OTHER] PO SCH (20:50)
[2016-01-30] MEDS: OMEGA FISH OIL PO SCH (20:50)
[2016-01-30] MEDS: Betamethasone Dipropionate/Clotrimazole 0.05-1% Crm 15 GM Tube TOP SCH (20:54)
[2016-01-31] MEDS: LEVOTHYROXINE 75 MCG PO SCH (06:10)
[2016-01-31] MEDS: DABIGATRAN 150 MG PO SCH ×2 (09:49→18:30)
[2016-01-31] MEDS: Acetaminophen 650 MG Tab.ER PO PRN (09:49)
[2016-01-31] MEDS: CHOLECALCIFEROL 5000 UNIT PO SCH (09:50)
[2016-01-31] MEDS: UBIDECARENONE 100 MG PO SCH ×2 (09:51→18:30)
[2016-01-31] MEDS: [UNRECOGNIZED DRUG - OTHER] TOP SCH (10:00)
[2016-01-31] MEDS: CONJUGATED ESTROGENS TOP SCH (10:00)
[2016-01-31] MEDS: CLOBETASOL 0.05% TOP PRN (10:01)
[2016-01-31] MEDS: OMEGA FISH OIL PO SCH (18:30)
[2016-01-31] MEDS: ZINC GLUCONATE PO SCH (18:31)
[2016-01-31] MEDS: MAGNESIUM OXIDE PO SCH (18:31)
[2016-01-31] MEDS: CALCIUM CARBONATE PO SCH (18:31)
[2016-01-31] MEDS: [UNRECOGNIZED DRUG - OTHER] PO SCH (18:31)
[2016-01-31] MEDS: Betamethasone Dipropionate/Clotrimazole 0.05-1% Crm 15 GM Tube TOP SCH (23:18)
[2016-02-01] MEDS: LEVOTHYROXINE 75 MCG PO SCH ×2 (05:54→10:00)
[2016-02-01] MEDS: CHOLECALCIFEROL 5000 UNIT PO SCH (09:56)
[2016-02-01] MEDS: DABIGATRAN 150 MG PO SCH ×2 (09:56→18:02)
[2016-02-01] MEDS: UBIDECARENONE 100 MG PO SCH ×2 (09:56→18:03)
[2016-02-01] MEDS: Acetaminophen 650 MG Tab.ER PO PRN (09:57)
[2016-02-01] MEDS: CLOBETASOL 0.05% TOP PRN (09:58)
[2016-02-01] MEDS: OMEGA FISH OIL PO SCH (18:03)
[2016-02-01] MEDS: CALCIUM CARBONATE PO SCH (18:03)
[2016-02-01] MEDS: MAGNESIUM OXIDE PO SCH (18:03)
[2016-02-01] MEDS: [UNRECOGNIZED DRUG - OTHER] PO SCH (18:03)
[2016-02-01] MEDS: ZINC GLUCONATE PO SCH (18:03)
[2016-02-01] MEDS: Betamethasone Dipropionate/Clotrimazole 0.05-1% Crm 15 GM Tube TOP SCH ×2 (18:04→19:01)
[2016-02-02] MEDS: DABIGATRAN 150 MG PO SCH ×3 (09:20→18:02)
[2016-02-02] MEDS: Acetaminophen 650 MG Tab.ER PO PRN (09:21)
[2016-02-02] MEDS: UBIDECARENONE 100 MG PO SCH ×3 (09:22→18:02)
[2016-02-02] MEDS: CHOLECALCIFEROL 5000 UNIT PO SCH (09:22)
[2016-02-02] MEDS: CONJUGATED ESTROGENS TOP SCH (09:23)
[2016-02-02] MEDS: [UNRECOGNIZED DRUG - OTHER] TOP SCH (09:23)
[2016-02-02] MEDS: CLOBETASOL 0.05% TOP PRN (09:23)
[2016-02-02] MEDS: Menthol/Methyl Salicylate 85 GM Tube TOP PRN (09:23)
[2016-02-02] MEDS: MAGNESIUM OXIDE PO SCH ×2 (17:53→18:02)
[2016-02-02] MEDS: [UNRECOGNIZED DRUG - OTHER] PO SCH ×2 (17:53→18:02)
[2016-02-02] MEDS: ZINC GLUCONATE PO SCH ×2 (17:53→18:02)
[2016-02-02] MEDS: CALCIUM CARBONATE PO SCH ×2 (17:53→18:02)
[2016-02-02] MEDS: OMEGA FISH OIL PO SCH ×2 (17:53→18:02)
[2016-02-02] MEDS: Betamethasone Dipropionate/Clotrimazole 0.05-1% Crm 15 GM Tube TOP SCH (23:14)
[2016-02-03] MEDS: LEVOTHYROXINE 75 MCG PO SCH (06:11)
[2016-02-03] MEDS: Acetaminophen 650 MG Tab.ER PO PRN (10:22)
[2016-02-03] MEDS: UBIDECARENONE 100 MG PO SCH ×2 (10:23→18:16)
[2016-02-03] MEDS: DABIGATRAN 150 MG PO SCH ×2 (10:24→18:15)
[2016-02-03] MEDS: CHOLECALCIFEROL 5000 UNIT PO SCH (10:24)
[2016-02-03] MEDS: ZINC GLUCONATE PO SCH (18:15)
[2016-02-03] MEDS: CALCIUM CARBONATE PO SCH (18:15)
[2016-02-03] MEDS: MAGNESIUM OXIDE PO SCH (18:15)
[2016-02-03] MEDS: OMEGA FISH OIL PO SCH (18:15)
[2016-02-03] MEDS: [UNRECOGNIZED DRUG - OTHER] PO SCH (18:16)
[2016-02-03] MEDS: Betamethasone Dipropionate/Clotrimazole 0.05-1% Crm 15 GM Tube TOP SCH (22:45)
[2016-02-04] MEDS: LEVOTHYROXINE 75 MCG PO SCH (06:06)
[2016-02-04] MEDS: CHOLECALCIFEROL 5000 UNIT PO SCH (09:39)
[2016-02-04] MEDS: DABIGATRAN 150 MG PO SCH ×2 (09:40→18:11)
[2016-02-04] MEDS: UBIDECARENONE 100 MG PO SCH ×2 (09:40→18:12)
[2016-02-04] MEDS: Acetaminophen 650 MG Tab.ER PO PRN (09:40)
[2016-02-04] MEDS: OMEGA FISH OIL PO SCH (18:12)
[2016-02-04] MEDS: [UNRECOGNIZED DRUG - OTHER] PO SCH (18:12)
[2016-02-04] MEDS: MAGNESIUM OXIDE PO SCH (18:12)
[2016-02-04] MEDS: ZINC GLUCONATE PO SCH (18:12)
[2016-02-04] MEDS: CALCIUM CARBONATE PO SCH (18:12)
[2016-02-04] MEDS: Betamethasone Dipropionate/Clotrimazole 0.05-1% Crm 15 GM Tube TOP SCH (23:11)
[2016-02-05] MEDS: LEVOTHYROXINE 75 MCG PO SCH (06:33)
[2016-02-05] MEDS: UBIDECARENONE 100 MG PO SCH ×3 (08:57→18:54)
[2016-02-05] MEDS: CHOLECALCIFEROL 5000 UNIT PO SCH ×2 (08:57→08:59)
[2016-02-05] MEDS: DABIGATRAN 150 MG PO SCH ×3 (08:57→18:54)
[2016-02-05] MEDS: CONJUGATED ESTROGENS TOP SCH ×2 (08:58→08:59)
[2016-02-05] MEDS: [UNRECOGNIZED DRUG - OTHER] TOP SCH ×2 (08:58→08:59)
[2016-02-05] MEDS: Acetaminophen 650 MG Tab.ER PO PRN ×2 (08:58→17:00)
[2016-02-05] MEDS: ZINC GLUCONATE PO SCH (18:54)
[2016-02-05] MEDS: CALCIUM CARBONATE PO SCH (18:54)
[2016-02-05] MEDS: MAGNESIUM OXIDE PO SCH (18:54)
[2016-02-05] MEDS: [UNRECOGNIZED DRUG - OTHER] PO SCH (18:55)
[2016-02-05] MEDS: OMEGA FISH OIL PO SCH (18:55)
[2016-02-05] MEDS: Betamethasone Dipropionate/Clotrimazole 0.05-1% Crm 15 GM Tube TOP SCH (22:58)
[2016-02-06] MEDS: LEVOTHYROXINE 75 MCG PO SCH (06:16)
[2016-02-06] MEDS: Acetaminophen 650 MG Tab.ER PO PRN (10:26)
[2016-02-06] MEDS: UBIDECARENONE 100 MG PO SCH ×2 (10:27→21:31)
[2016-02-06] MEDS: CHOLECALCIFEROL 5000 UNIT PO SCH (10:27)
[2016-02-06] MEDS: DABIGATRAN 150 MG PO SCH ×2 (10:27→21:30)
[2016-02-06] MEDS: ZINC GLUCONATE PO SCH (21:29)
[2016-02-06] MEDS: CALCIUM CARBONATE PO SCH (21:29)
[2016-02-06] MEDS: MAGNESIUM OXIDE PO SCH (21:29)
[2016-02-06] MEDS: OMEGA FISH OIL PO SCH (21:30)
[2016-02-06] MEDS: [UNRECOGNIZED DRUG - OTHER] PO SCH (21:31)
[2016-02-06] MEDS: Betamethasone Dipropionate/Clotrimazole 0.05-1% Crm 15 GM Tube TOP SCH (23:20)
[2016-02-07] MEDS: LEVOTHYROXINE 75 MCG PO SCH (06:10)
[2016-02-07] MEDS: Acetaminophen 650 MG Tab.ER PO PRN (10:08)
[2016-02-07] MEDS: DABIGATRAN 150 MG PO SCH ×2 (10:08→20:38)
[2016-02-07] MEDS: UBIDECARENONE 100 MG PO SCH ×2 (10:09→20:39)
[2016-02-07] MEDS: CHOLECALCIFEROL 5000 UNIT PO SCH (10:09)
[2016-02-07] MEDS: CALCIUM CARBONATE PO SCH (20:38)
[2016-02-07] MEDS: MAGNESIUM OXIDE PO SCH (20:38)
[2016-02-07] MEDS: ZINC GLUCONATE PO SCH (20:38)
[2016-02-07] MEDS: [UNRECOGNIZED DRUG - OTHER] PO SCH (20:39)
[2016-02-07] MEDS: OMEGA FISH OIL PO SCH (20:39)
[2016-02-07] MEDS: Betamethasone Dipropionate/Clotrimazole 0.05-1% Crm 15 GM Tube TOP SCH (20:40)
[2016-02-08] MEDS: LEVOTHYROXINE 75 MCG PO SCH (06:29)
[2016-02-08] MEDS: DABIGATRAN 150 MG PO SCH ×2 (09:47→18:03)
[2016-02-08] MEDS: CHOLECALCIFEROL 5000 UNIT PO SCH (09:48)
[2016-02-08] MEDS: UBIDECARENONE 100 MG PO SCH ×2 (09:48→18:04)
[2016-02-08] MEDS: Acetaminophen 650 MG Tab.ER PO PRN (09:48)
[2016-02-08] MEDS: CONJUGATED ESTROGENS TOP SCH (09:51)
[2016-02-08] MEDS: [UNRECOGNIZED DRUG - OTHER] TOP SCH (09:51)
[2016-02-08] MEDS: MAGNESIUM OXIDE PO SCH (18:04)
[2016-02-08] MEDS: [UNRECOGNIZED DRUG - OTHER] PO SCH (18:04)
[2016-02-08] MEDS: CALCIUM CARBONATE PO SCH (18:04)
[2016-02-08] MEDS: ZINC GLUCONATE PO SCH (18:04)
[2016-02-08] MEDS: OMEGA FISH OIL PO SCH (18:04)
[2016-02-08] MEDS: Betamethasone Dipropionate/Clotrimazole 0.05-1% Crm 15 GM Tube TOP SCH (23:13)
[2016-02-09] MEDS: CHOLECALCIFEROL 5000 UNIT PO SCH (09:36)
[2016-02-09] MEDS: UBIDECARENONE 100 MG PO SCH ×2 (09:37→18:41)
[2016-02-09] MEDS: Acetaminophen 650 MG Tab.ER PO PRN (09:38)
[2016-02-09] MEDS: DABIGATRAN 150 MG PO SCH ×2 (09:38→18:41)
[2016-02-09] MEDS: Menthol/Methyl Salicylate 85 GM Tube TOP PRN (12:22)
[2016-02-09] MEDS: OMEGA FISH OIL PO SCH (18:39)
[2016-02-09] MEDS: MAGNESIUM OXIDE PO SCH (18:40)
[2016-02-09] MEDS: ZINC GLUCONATE PO SCH (18:40)
[2016-02-09] MEDS: CALCIUM CARBONATE PO SCH (18:40)
[2016-02-09] MEDS: [UNRECOGNIZED DRUG - OTHER] PO SCH (18:40)
[2016-02-09] MEDS: Betamethasone Dipropionate/Clotrimazole 0.05-1% Crm 15 GM Tube TOP SCH (22:57)
[2016-02-10] MEDS: LEVOTHYROXINE 75 MCG PO SCH (06:32)
[2016-02-10] MEDS: CHOLECALCIFEROL 5000 UNIT PO SCH (09:44)
[2016-02-10] MEDS: UBIDECARENONE 100 MG PO SCH ×2 (09:44→18:18)
[2016-02-10] MEDS: DABIGATRAN 150 MG PO SCH ×2 (09:47→18:22)
[2016-02-10] MEDS: Menthol/Methyl Salicylate 85 GM Tube TOP PRN (09:48)
[2016-02-10] MEDS: Acetaminophen 650 MG Tab.ER PO PRN (09:57)
[2016-02-10] MEDS: [UNRECOGNIZED DRUG - OTHER] PO SCH (18:19)
[2016-02-10] MEDS: OMEGA FISH OIL PO SCH (18:20)
[2016-02-10] MEDS: CALCIUM CARBONATE PO SCH (18:21)
[2016-02-10] MEDS: ZINC GLUCONATE PO SCH (18:21)
[2016-02-10] MEDS: MAGNESIUM OXIDE PO SCH (18:21)
[2016-02-10] MEDS: Betamethasone Dipropionate/Clotrimazole 0.05-1% Crm 15 GM Tube TOP SCH (22:50)
[2016-02-11] MEDS: LEVOTHYROXINE 75 MCG PO SCH (06:00)
[2016-02-11] MEDS: CHOLECALCIFEROL 5000 UNIT PO SCH (09:39)
[2016-02-11] MEDS: UBIDECARENONE 100 MG PO SCH ×2 (09:40→18:39)
[2016-02-11] MEDS: DABIGATRAN 150 MG PO SCH ×2 (09:41→18:41)
[2016-02-11] MEDS: Acetaminophen 650 MG Tab.ER PO PRN (09:41)
[2016-02-11] MEDS: CONJUGATED ESTROGENS TOP SCH (09:44)
[2016-02-11] MEDS: [UNRECOGNIZED DRUG - OTHER] TOP SCH (09:44)
[2016-02-11] MEDS: MAGNESIUM OXIDE PO SCH (18:40)
[2016-02-11] MEDS: ZINC GLUCONATE PO SCH (18:40)
[2016-02-11] MEDS: OMEGA FISH OIL PO SCH (18:40)
[2016-02-11] MEDS: [UNRECOGNIZED DRUG - OTHER] PO SCH (18:40)
[2016-02-11] MEDS: CALCIUM CARBONATE PO SCH (18:40)
[2016-02-11] MEDS: Betamethasone Dipropionate/Clotrimazole 0.05-1% Crm 15 GM Tube TOP SCH (23:16)
[2016-02-12] MEDS: LEVOTHYROXINE 75 MCG PO SCH (06:15)
[2016-02-12] MEDS: CHOLECALCIFEROL 5000 UNIT PO SCH (10:58)
[2016-02-12] MEDS: UBIDECARENONE 100 MG PO SCH ×2 (10:58→18:31)
[2016-02-12] MEDS: DABIGATRAN 150 MG PO SCH ×2 (10:58→18:30)
[2016-02-12] MEDS: Acetaminophen 650 MG Tab.ER PO PRN (11:00)
[2016-02-12] MEDS: [UNRECOGNIZED DRUG - OTHER] PO SCH (18:31)
[2016-02-12] MEDS: CALCIUM CARBONATE PO SCH (18:31)
[2016-02-12] MEDS: ZINC GLUCONATE PO SCH (18:31)
[2016-02-12] MEDS: OMEGA FISH OIL PO SCH (18:31)
[2016-02-12] MEDS: MAGNESIUM OXIDE PO SCH (18:31)
--- NOTE | 2016-02-12 21:47 | PN ---
Progress Note for EMILY SHEETS Date: 02/12/2016 Room #: VM.207 SUBJECTIVE: This is an 86-year-old seen for her monthly follow up. Her main concern is vaginal irritation. She states it is pretty good today, but got worse over the weekend. She was to see TRAVELIFT OPERATOR last month. Her UA and wet prep were both negative. They switched her clobetasol to Lotrisone. Their concern was that she has some stress urinary incontinence, which she admits at times especially if somebody is trying to move her. She will be incontinent. She does not always need to wear a pad and she is mostly dry, but does occasionally leak. Otherwise, she is feeling fine. No chest pain. No cough. No shortness of breath. OBJECTIVE: Vital signs: Temperature is 97.9, pulse 68, blood pressure 112/59, respiratory rate 20, O2 94% on room air. General: She is in no acute distress. Heart: Irregularly irregular. Lungs: Sounds are clear to auscultation bilaterally without crackles or wheezes. Extremities: Warm and dry. No edema. Mental status: Alert and orientated x3. ASSESSMENT AND PLAN: 1. Atrophic vaginitis and vaginal irritation with stress urinary incontinence leading to chronic dermatitis and vulvitis. At this point, the patient will continue her Premarin cream twice weekly and Lotrisone. She will be seeing PT for pelvic floor strengthening later this month. 2. Atrial fibrillation with previous transient ischemic attack, on Pradaxa. 3. Mild thrombocytopenia. 4. Chronic leg weakness. 5. Severe osteoarthritis especially in the knees. 6. Hypothyroidism. 7. Essential hypertension, controlled. PLAN: At this point, the patient will continue swing bed cares. No lab work to do. We will recertify her in 1 month. We will continue with pads and trying to keep her dry and pelvic floor PT with Lotrisone and Premarin. MKA: 02/12/2016 21:15:42 MODL: 02/12/2016 21:30:35 /[id number]
[2016-02-13] MEDS: LEVOTHYROXINE 75 MCG PO SCH (06:01)
[2016-02-13] MEDS: UBIDECARENONE 100 MG PO SCH ×2 (09:26→18:08)
[2016-02-13] MEDS: CHOLECALCIFEROL 5000 UNIT PO SCH (09:26)
[2016-02-13] MEDS: DABIGATRAN 150 MG PO SCH ×2 (09:27→18:10)
[2016-02-13] MEDS: Acetaminophen 650 MG Tab.ER PO PRN (09:28)
[2016-02-13] MEDS: [UNRECOGNIZED DRUG - OTHER] PO SCH (18:08)
[2016-02-13] MEDS: OMEGA FISH OIL PO SCH (18:09)
[2016-02-13] MEDS: ZINC GLUCONATE PO SCH (18:10)
[2016-02-13] MEDS: MAGNESIUM OXIDE PO SCH (18:10)
[2016-02-13] MEDS: CALCIUM CARBONATE PO SCH (18:10)
[2016-02-13] MEDS: Betamethasone Dipropionate/Clotrimazole 0.05-1% Crm 15 GM Tube TOP SCH (22:22)
[2016-02-14] MEDS: LEVOTHYROXINE 75 MCG PO SCH (06:43)
[2016-02-14] MEDS: DABIGATRAN 150 MG PO SCH ×2 (09:54→18:25)
[2016-02-14] MEDS: Acetaminophen 650 MG Tab.ER PO PRN (09:55)
[2016-02-14] MEDS: CHOLECALCIFEROL 5000 UNIT PO SCH (09:56)
[2016-02-14] MEDS: UBIDECARENONE 100 MG PO SCH ×2 (09:56→18:24)
[2016-02-14] MEDS: Menthol/Methyl Salicylate 85 GM Tube TOP PRN (09:57)
[2016-02-14] MEDS: [UNRECOGNIZED DRUG - OTHER] TOP SCH (09:57)
[2016-02-14] MEDS: CONJUGATED ESTROGENS TOP SCH (09:57)
[2016-02-14] MEDS: [UNRECOGNIZED DRUG - OTHER] PO SCH (18:24)
[2016-02-14] MEDS: ZINC GLUCONATE PO SCH (18:24)
[2016-02-14] MEDS: OMEGA FISH OIL PO SCH (18:24)
[2016-02-14] MEDS: CALCIUM CARBONATE PO SCH (18:24)
[2016-02-14] MEDS: MAGNESIUM OXIDE PO SCH (18:24)
[2016-02-15] MEDS: LEVOTHYROXINE 75 MCG PO SCH (09:57)
[2016-02-15] MEDS: Acetaminophen 650 MG Tab.ER PO PRN (09:57)
[2016-02-15] MEDS: UBIDECARENONE 100 MG PO SCH ×2 (09:58→18:23)
[2016-02-15] MEDS: CHOLECALCIFEROL 5000 UNIT PO SCH (09:58)
[2016-02-15] MEDS: DABIGATRAN 150 MG PO SCH ×2 (09:58→18:22)
[2016-02-15] MEDS: MAGNESIUM OXIDE PO SCH (18:23)
[2016-02-15] MEDS: [UNRECOGNIZED DRUG - OTHER] PO SCH (18:23)
[2016-02-15] MEDS: ZINC GLUCONATE PO SCH (18:23)
[2016-02-15] MEDS: CALCIUM CARBONATE PO SCH (18:23)
[2016-02-15] MEDS: OMEGA FISH OIL PO SCH (18:24)
[2016-02-15] MEDS: Betamethasone Dipropionate/Clotrimazole 0.05-1% Crm 15 GM Tube TOP SCH (23:11)
[2016-02-16] MEDS: DABIGATRAN 150 MG PO SCH ×2 (09:25→18:25)
[2016-02-16] MEDS: UBIDECARENONE 100 MG PO SCH ×2 (09:26→18:27)
[2016-02-16] MEDS: CHOLECALCIFEROL 5000 UNIT PO SCH (09:26)
[2016-02-16] MEDS: Acetaminophen 650 MG Tab.ER PO PRN (09:27)
[2016-02-16] MEDS: MAGNESIUM OXIDE PO SCH (18:27)
[2016-02-16] MEDS: [UNRECOGNIZED DRUG - OTHER] PO SCH (18:27)
[2016-02-16] MEDS: ZINC GLUCONATE PO SCH (18:27)
[2016-02-16] MEDS: CALCIUM CARBONATE PO SCH (18:27)
[2016-02-16] MEDS: OMEGA FISH OIL PO SCH (18:27)
[2016-02-17] MEDS: LEVOTHYROXINE 75 MCG PO SCH (06:42)
[2016-02-17] MEDS: CHOLECALCIFEROL 5000 UNIT PO SCH (09:22)
[2016-02-17] MEDS: UBIDECARENONE 100 MG PO SCH ×2 (09:23→18:12)
[2016-02-17] MEDS: DABIGATRAN 150 MG PO SCH ×2 (09:25→18:13)
[2016-02-17] MEDS: CONJUGATED ESTROGENS TOP SCH (09:27)
[2016-02-17] MEDS: [UNRECOGNIZED DRUG - OTHER] TOP SCH (09:27)
[2016-02-17] MEDS: Acetaminophen 650 MG Tab.ER PO PRN (09:29)
[2016-02-17] MEDS: OMEGA FISH OIL PO SCH (18:12)
[2016-02-17] MEDS: [UNRECOGNIZED DRUG - OTHER] PO SCH (18:12)
[2016-02-17] MEDS: ZINC GLUCONATE PO SCH (18:13)
[2016-02-17] MEDS: CALCIUM CARBONATE PO SCH (18:13)
[2016-02-17] MEDS: MAGNESIUM OXIDE PO SCH (18:13)
[2016-02-18] MEDS: LEVOTHYROXINE 75 MCG PO SCH (06:07)
[2016-02-18] MEDS: CHOLECALCIFEROL 5000 UNIT PO SCH (09:15)
[2016-02-18] MEDS: UBIDECARENONE 100 MG PO SCH ×2 (09:16→18:08)
[2016-02-18] MEDS: Acetaminophen 650 MG Tab.ER PO PRN (09:16)
[2016-02-18] MEDS: DABIGATRAN 150 MG PO SCH ×2 (09:16→18:06)
[2016-02-18] MEDS: ZINC GLUCONATE PO SCH (18:06)
[2016-02-18] MEDS: MAGNESIUM OXIDE PO SCH (18:06)
[2016-02-18] MEDS: CALCIUM CARBONATE PO SCH (18:06)
[2016-02-18] MEDS: [UNRECOGNIZED DRUG - OTHER] PO SCH (18:07)
[2016-02-18] MEDS: OMEGA FISH OIL PO SCH (18:07)
[2016-02-18] MEDS: Betamethasone Dipropionate/Clotrimazole 0.05-1% Crm 15 GM Tube TOP SCH (22:42)
[2016-02-19] MEDS: LEVOTHYROXINE 75 MCG PO SCH (12:17)
[2016-02-19] MEDS: CHOLECALCIFEROL 5000 UNIT PO SCH (12:17)
[2016-02-19] MEDS: DABIGATRAN 150 MG PO SCH ×2 (12:17→18:38)
[2016-02-19] MEDS: UBIDECARENONE 100 MG PO SCH ×2 (12:17→18:38)
[2016-02-19] MEDS: OMEGA FISH OIL PO SCH (18:38)
[2016-02-19] MEDS: MAGNESIUM OXIDE PO SCH (18:38)
[2016-02-19] MEDS: CALCIUM CARBONATE PO SCH (18:38)
[2016-02-19] MEDS: ZINC GLUCONATE PO SCH (18:38)
[2016-02-19] MEDS: [UNRECOGNIZED DRUG - OTHER] PO SCH (18:38)
[2016-02-20] MEDS: LEVOTHYROXINE 75 MCG PO SCH (06:13)
[2016-02-20] MEDS: Acetaminophen 650 MG Tab.ER PO PRN ×2 (09:43→14:48)
[2016-02-20] MEDS: DABIGATRAN 150 MG PO SCH ×2 (09:43→18:15)
[2016-02-20] MEDS: CHOLECALCIFEROL 5000 UNIT PO SCH (09:45)
[2016-02-20] MEDS: UBIDECARENONE 100 MG PO SCH ×2 (09:45→18:15)
[2016-02-20] MEDS: CONJUGATED ESTROGENS TOP SCH (09:46)
[2016-02-20] MEDS: [UNRECOGNIZED DRUG - OTHER] TOP SCH (09:46)
[2016-02-20] MEDS: ZINC GLUCONATE PO SCH (18:16)
[2016-02-20] MEDS: CALCIUM CARBONATE PO SCH (18:16)
[2016-02-20] MEDS: OMEGA FISH OIL PO SCH (18:16)
[2016-02-20] MEDS: [UNRECOGNIZED DRUG - OTHER] PO SCH (18:16)
[2016-02-20] MEDS: MAGNESIUM OXIDE PO SCH (18:16)
[2016-02-20] MEDS: Betamethasone Dipropionate/Clotrimazole 0.05-1% Crm 15 GM Tube TOP SCH (23:35)
[2016-02-21] MEDS: LEVOTHYROXINE 75 MCG PO SCH ×2 (05:37→06:10)
[2016-02-21] MEDS: Acetaminophen 650 MG Tab.ER PO PRN ×2 (09:25→17:19)
[2016-02-21] MEDS: DABIGATRAN 150 MG PO SCH ×3 (09:25→18:02)
[2016-02-21] MEDS: UBIDECARENONE 100 MG PO SCH ×3 (09:26→18:02)
[2016-02-21] MEDS: CHOLECALCIFEROL 5000 UNIT PO SCH (09:26)
[2016-02-21] MEDS: OMEGA FISH OIL PO SCH ×2 (17:21→18:02)
[2016-02-21] MEDS: [UNRECOGNIZED DRUG - OTHER] PO SCH ×2 (17:21→18:02)
[2016-02-21] MEDS: MAGNESIUM OXIDE PO SCH ×2 (17:22→18:02)
[2016-02-21] MEDS: ZINC GLUCONATE PO SCH ×2 (17:22→18:02)
[2016-02-21] MEDS: CALCIUM CARBONATE PO SCH ×2 (17:22→18:02)
[2016-02-22] MEDS: LEVOTHYROXINE 75 MCG PO SCH (06:20)
[2016-02-22] MEDS: DABIGATRAN 150 MG PO SCH ×2 (09:40→18:31)
[2016-02-22] MEDS: UBIDECARENONE 100 MG PO SCH ×2 (09:40→18:31)
[2016-02-22] MEDS: CHOLECALCIFEROL 5000 UNIT PO SCH (09:40)
[2016-02-22] MEDS: Acetaminophen 650 MG Tab.ER PO PRN (09:41)
[2016-02-22] MEDS: [UNRECOGNIZED DRUG - OTHER] PO SCH (18:31)
[2016-02-22] MEDS: ZINC GLUCONATE PO SCH (18:31)
[2016-02-22] MEDS: MAGNESIUM OXIDE PO SCH (18:31)
[2016-02-22] MEDS: CALCIUM CARBONATE PO SCH (18:31)
[2016-02-22] MEDS: OMEGA FISH OIL PO SCH (18:31)
[2016-02-22] MEDS: Betamethasone Dipropionate/Clotrimazole 0.05-1% Crm 15 GM Tube TOP SCH (19:53)
[2016-02-23] MEDS: Acetaminophen 650 MG Tab.ER PO PRN (08:33)
[2016-02-23] MEDS: CHOLECALCIFEROL 5000 UNIT PO SCH ×2 (08:33→09:13)
[2016-02-23] MEDS: DABIGATRAN 150 MG PO SCH ×3 (08:33→19:49)
[2016-02-23] MEDS: LEVOTHYROXINE 75 MCG PO SCH (08:34)
[2016-02-23] MEDS: [UNRECOGNIZED DRUG - OTHER] TOP SCH ×2 (08:35→09:13)
[2016-02-23] MEDS: CONJUGATED ESTROGENS TOP SCH ×2 (08:35→09:13)
[2016-02-23] MEDS: UBIDECARENONE 100 MG PO SCH ×3 (08:51→19:49)
[2016-02-23] MEDS: MAGNESIUM OXIDE PO SCH (19:48)
[2016-02-23] MEDS: ZINC GLUCONATE PO SCH (19:48)
[2016-02-23] MEDS: CALCIUM CARBONATE PO SCH (19:48)
[2016-02-23] MEDS: OMEGA FISH OIL PO SCH (19:49)
[2016-02-23] MEDS: [UNRECOGNIZED DRUG - OTHER] PO SCH (19:49)
[2016-02-24] MEDS: LEVOTHYROXINE 75 MCG PO SCH (06:27)
[2016-02-24] MEDS: UBIDECARENONE 100 MG PO SCH ×2 (10:30→18:11)
[2016-02-24] MEDS: DABIGATRAN 150 MG PO SCH ×2 (10:30→18:11)
[2016-02-24] MEDS: Acetaminophen 650 MG Tab.ER PO PRN (10:30)
[2016-02-24] MEDS: CHOLECALCIFEROL 5000 UNIT PO SCH (10:30)
[2016-02-24] MEDS: MAGNESIUM OXIDE PO SCH (18:11)
[2016-02-24] MEDS: OMEGA FISH OIL PO SCH (18:11)
[2016-02-24] MEDS: CALCIUM CARBONATE PO SCH (18:11)
[2016-02-24] MEDS: [UNRECOGNIZED DRUG - OTHER] PO SCH (18:11)
[2016-02-24] MEDS: ZINC GLUCONATE PO SCH (18:11)
[2016-02-25] MEDS: CLOBETASOL 0.05% TOP PRN (00:41)
[2016-02-25] MEDS: LEVOTHYROXINE 75 MCG PO SCH (06:02)
[2016-02-25] MEDS: CHOLECALCIFEROL 5000 UNIT PO SCH (09:32)
[2016-02-25] MEDS: DABIGATRAN 150 MG PO SCH ×2 (09:32→18:10)
[2016-02-25] MEDS: UBIDECARENONE 100 MG PO SCH ×2 (09:32→18:10)
[2016-02-25] MEDS: Acetaminophen 650 MG Tab.ER PO PRN (09:32)
[2016-02-25] MEDS: CALCIUM CARBONATE PO SCH (18:10)
[2016-02-25] MEDS: [UNRECOGNIZED DRUG - OTHER] PO SCH (18:10)
[2016-02-25] MEDS: OMEGA FISH OIL PO SCH (18:10)
[2016-02-25] MEDS: MAGNESIUM OXIDE PO SCH (18:10)
[2016-02-25] MEDS: ZINC GLUCONATE PO SCH (18:10)
[2016-02-25] MEDS: Betamethasone Dipropionate/Clotrimazole 0.05-1% Crm 15 GM Tube TOP SCH (22:44)
[2016-02-26] MEDS: LEVOTHYROXINE 75 MCG PO SCH (06:14)
[2016-02-26] MEDS: CHOLECALCIFEROL 5000 UNIT PO SCH (10:16)
[2016-02-26] MEDS: UBIDECARENONE 100 MG PO SCH ×2 (10:16→18:36)
[2016-02-26] MEDS: Acetaminophen 650 MG Tab.ER PO PRN (10:16)
[2016-02-26] MEDS: DABIGATRAN 150 MG PO SCH ×2 (10:16→18:36)
[2016-02-26] MEDS: [UNRECOGNIZED DRUG - OTHER] TOP SCH (11:07)
[2016-02-26] MEDS: CONJUGATED ESTROGENS TOP SCH (11:07)
[2016-02-26] MEDS: [UNRECOGNIZED DRUG - OTHER] PO SCH (18:36)
[2016-02-26] MEDS: MAGNESIUM OXIDE PO SCH (18:36)
[2016-02-26] MEDS: ZINC GLUCONATE PO SCH (18:36)
[2016-02-26] MEDS: CALCIUM CARBONATE PO SCH (18:36)
[2016-02-26] MEDS: OMEGA FISH OIL PO SCH (18:36)
[2016-02-27] MEDS: LEVOTHYROXINE 75 MCG PO SCH (06:05)
[2016-02-27] MEDS: DABIGATRAN 150 MG PO SCH ×2 (09:38→18:15)
[2016-02-27] MEDS: Acetaminophen 650 MG Tab.ER PO PRN (09:38)
[2016-02-27] MEDS: UBIDECARENONE 100 MG PO SCH ×2 (09:39→18:15)
[2016-02-27] MEDS: CHOLECALCIFEROL 5000 UNIT PO SCH (09:39)
[2016-02-27] MEDS: [UNRECOGNIZED DRUG - OTHER] TOP SCH (09:43)
[2016-02-27] MEDS: CONJUGATED ESTROGENS TOP SCH (09:43)
[2016-02-27] MEDS: [UNRECOGNIZED DRUG - OTHER] PO SCH (18:16)
[2016-02-27] MEDS: CALCIUM CARBONATE PO SCH (18:16)
[2016-02-27] MEDS: ZINC GLUCONATE PO SCH (18:16)
[2016-02-27] MEDS: OMEGA FISH OIL PO SCH (18:16)
[2016-02-27] MEDS: MAGNESIUM OXIDE PO SCH (18:16)
[2016-02-27] MEDS: Betamethasone Dipropionate/Clotrimazole 0.05-1% Crm 15 GM Tube TOP SCH (22:56)
[2016-02-28] MEDS: LEVOTHYROXINE 75 MCG PO SCH (06:05)
[2016-02-28] MEDS: Acetaminophen 650 MG Tab.ER PO PRN (09:53)
[2016-02-28] MEDS: DABIGATRAN 150 MG PO SCH ×2 (09:55→19:33)
[2016-02-28] MEDS: CHOLECALCIFEROL 5000 UNIT PO SCH (09:56)
[2016-02-28] MEDS: UBIDECARENONE 100 MG PO SCH ×2 (09:56→19:32)
[2016-02-28] MEDS: [UNRECOGNIZED DRUG - OTHER] PO SCH (19:32)
[2016-02-28] MEDS: MAGNESIUM OXIDE PO SCH (19:32)
[2016-02-28] MEDS: ZINC GLUCONATE PO SCH (19:32)
[2016-02-28] MEDS: OMEGA FISH OIL PO SCH (19:32)
[2016-02-28] MEDS: CALCIUM CARBONATE PO SCH (19:32)
[2016-02-29] MEDS: LEVOTHYROXINE 75 MCG PO SCH (06:49)
[2016-02-29] MEDS: DABIGATRAN 150 MG PO SCH ×2 (10:36→18:17)
[2016-02-29] MEDS: CHOLECALCIFEROL 5000 UNIT PO SCH (10:37)
[2016-02-29] MEDS: UBIDECARENONE 100 MG PO SCH ×2 (10:37→18:16)
[2016-02-29] MEDS: Acetaminophen 650 MG Tab.ER PO PRN (10:38)
[2016-02-29] MEDS: [UNRECOGNIZED DRUG - OTHER] PO SCH (18:15)
[2016-02-29] MEDS: OMEGA FISH OIL PO SCH (18:15)
[2016-02-29] MEDS: ZINC GLUCONATE PO SCH (18:17)
[2016-02-29] MEDS: MAGNESIUM OXIDE PO SCH (18:17)
[2016-02-29] MEDS: CALCIUM CARBONATE PO SCH (18:17)
[2016-02-29] MEDS: [UNRECOGNIZED DRUG - OTHER] TOP SCH (23:03)
[2016-02-29] MEDS: CONJUGATED ESTROGENS TOP SCH (23:03)
[2016-02-29] MEDS: Betamethasone Dipropionate/Clotrimazole 0.05-1% Crm 15 GM Tube TOP SCH (23:05)
[2016-03-01] MEDS: UBIDECARENONE 100 MG PO SCH ×2 (10:53→18:55)
[2016-03-01] MEDS: Acetaminophen 650 MG Tab.ER PO PRN (10:53)
[2016-03-01] MEDS: CHOLECALCIFEROL 5000 UNIT PO SCH (10:53)
[2016-03-01] MEDS: DABIGATRAN 150 MG PO SCH ×2 (10:53→18:57)
[2016-03-01] MEDS: MAGNESIUM OXIDE PO SCH (18:55)
[2016-03-01] MEDS: ZINC GLUCONATE PO SCH (18:55)
[2016-03-01] MEDS: CALCIUM CARBONATE PO SCH (18:55)
[2016-03-01] MEDS: [UNRECOGNIZED DRUG - OTHER] PO SCH (18:56)
[2016-03-01] MEDS: OMEGA FISH OIL PO SCH (18:56)
[2016-03-02] MEDS: LEVOTHYROXINE 75 MCG PO SCH (07:32)
[2016-03-02] MEDS: Acetaminophen 650 MG Tab.ER PO PRN (07:33)
[2016-03-02] MEDS: DABIGATRAN 150 MG PO SCH ×2 (09:20→18:13)
[2016-03-02] MEDS: UBIDECARENONE 100 MG PO SCH ×2 (09:21→18:11)
[2016-03-02] MEDS: CHOLECALCIFEROL 5000 UNIT PO SCH (09:21)
[2016-03-02] MEDS: [UNRECOGNIZED DRUG - OTHER] PO SCH (18:11)
[2016-03-02] MEDS: MAGNESIUM OXIDE PO SCH (18:12)
[2016-03-02] MEDS: ZINC GLUCONATE PO SCH (18:12)
[2016-03-02] MEDS: CALCIUM CARBONATE PO SCH (18:12)
[2016-03-02] MEDS: OMEGA FISH OIL PO SCH (18:12)
[2016-03-03] MEDS: LEVOTHYROXINE 75 MCG PO SCH (06:41)
[2016-03-03] MEDS: CHOLECALCIFEROL 5000 UNIT PO SCH (09:17)
[2016-03-03] MEDS: DABIGATRAN 150 MG PO SCH ×2 (09:17→18:35)
[2016-03-03] MEDS: UBIDECARENONE 100 MG PO SCH ×2 (09:18→18:35)
[2016-03-03] MEDS: Acetaminophen 650 MG Tab.ER PO PRN (09:18)
[2016-03-03] MEDS: [UNRECOGNIZED DRUG - OTHER] TOP SCH (09:19)
[2016-03-03] MEDS: CONJUGATED ESTROGENS TOP SCH (09:19)
[2016-03-03] MEDS: [UNRECOGNIZED DRUG - OTHER] PO SCH (18:35)
[2016-03-03] MEDS: CALCIUM CARBONATE PO SCH (18:35)
[2016-03-03] MEDS: MAGNESIUM OXIDE PO SCH (18:35)
[2016-03-03] MEDS: ZINC GLUCONATE PO SCH (18:35)
[2016-03-03] MEDS: OMEGA FISH OIL PO SCH (18:35)
[2016-03-03] MEDS: Betamethasone Dipropionate/Clotrimazole 0.05-1% Crm 15 GM Tube TOP SCH (22:40)
[2016-03-04] MEDS: Betamethasone Dipropionate/Clotrimazole 0.05-1% Crm 15 GM Tube TOP SCH ×2 (00:26)
[2016-03-04] MEDS: LEVOTHYROXINE 75 MCG PO SCH (06:09)
[2016-03-04] MEDS: CHOLECALCIFEROL 5000 UNIT PO SCH (10:34)
[2016-03-04] MEDS: UBIDECARENONE 100 MG PO SCH ×2 (10:35→18:50)
[2016-03-04] MEDS: Acetaminophen 650 MG Tab.ER PO PRN (10:35)
[2016-03-04] MEDS: DABIGATRAN 150 MG PO SCH ×2 (10:37→18:50)
[2016-03-04] MEDS: ZINC GLUCONATE PO SCH (18:50)
[2016-03-04] MEDS: MAGNESIUM OXIDE PO SCH (18:50)
[2016-03-04] MEDS: [UNRECOGNIZED DRUG - OTHER] PO SCH (18:50)
[2016-03-04] MEDS: OMEGA FISH OIL PO SCH (18:50)
[2016-03-04] MEDS: CALCIUM CARBONATE PO SCH (18:50)
[2016-03-05] MEDS: LEVOTHYROXINE 75 MCG PO SCH (06:33)
[2016-03-05] MEDS: CHOLECALCIFEROL 5000 UNIT PO SCH (09:29)
[2016-03-05] MEDS: UBIDECARENONE 100 MG PO SCH ×2 (09:29→18:31)
[2016-03-05] MEDS: DABIGATRAN 150 MG PO SCH ×2 (09:29→18:31)
[2016-03-05] MEDS: Acetaminophen 650 MG Tab.ER PO PRN (09:30)
[2016-03-05] MEDS: ZINC GLUCONATE PO SCH (18:31)
[2016-03-05] MEDS: [UNRECOGNIZED DRUG - OTHER] PO SCH (18:31)
[2016-03-05] MEDS: CALCIUM CARBONATE PO SCH (18:31)
[2016-03-05] MEDS: MAGNESIUM OXIDE PO SCH (18:31)
[2016-03-05] MEDS: OMEGA FISH OIL PO SCH (18:31)
[2016-03-05] MEDS: Betamethasone Dipropionate/Clotrimazole 0.05-1% Crm 15 GM Tube TOP SCH (22:00)
[2016-03-06] MEDS: LEVOTHYROXINE 75 MCG PO SCH (06:50)
[2016-03-06] MEDS: DABIGATRAN 150 MG PO SCH ×2 (10:31→18:56)
[2016-03-06] MEDS: Acetaminophen 650 MG Tab.ER PO PRN (10:31)
[2016-03-06] MEDS: [UNRECOGNIZED DRUG - OTHER] TOP SCH (10:32)
[2016-03-06] MEDS: UBIDECARENONE 100 MG PO SCH ×2 (10:32→18:56)
[2016-03-06] MEDS: CHOLECALCIFEROL 5000 UNIT PO SCH (10:32)
[2016-03-06] MEDS: CONJUGATED ESTROGENS TOP SCH (10:32)
[2016-03-06] MEDS: OMEGA FISH OIL PO SCH (18:56)
[2016-03-06] MEDS: ZINC GLUCONATE PO SCH (18:56)
[2016-03-06] MEDS: CALCIUM CARBONATE PO SCH (18:56)
[2016-03-06] MEDS: MAGNESIUM OXIDE PO SCH (18:56)
[2016-03-06] MEDS: [UNRECOGNIZED DRUG - OTHER] PO SCH (18:57)
[2016-03-07] MEDS: LEVOTHYROXINE 75 MCG PO SCH (06:31)
[2016-03-07] MEDS: DABIGATRAN 150 MG PO SCH ×2 (09:13→18:18)
[2016-03-07] MEDS: CHOLECALCIFEROL 5000 UNIT PO SCH (09:13)
[2016-03-07] MEDS: UBIDECARENONE 100 MG PO SCH ×2 (09:14→18:19)
[2016-03-07] MEDS: Acetaminophen 650 MG Tab.ER PO PRN (09:14)
[2016-03-07] MEDS: CALCIUM CARBONATE PO SCH (18:19)
[2016-03-07] MEDS: [UNRECOGNIZED DRUG - OTHER] PO SCH (18:19)
[2016-03-07] MEDS: ZINC GLUCONATE PO SCH (18:19)
[2016-03-07] MEDS: MAGNESIUM OXIDE PO SCH (18:19)
[2016-03-07] MEDS: OMEGA FISH OIL PO SCH (18:19)
[2016-03-07] MEDS: Betamethasone Dipropionate/Clotrimazole 0.05-1% Crm 15 GM Tube TOP SCH (23:31)
[2016-03-08] MEDS: CHOLECALCIFEROL 5000 UNIT PO SCH (09:43)
[2016-03-08] MEDS: UBIDECARENONE 100 MG PO SCH ×2 (09:45→18:12)
[2016-03-08] MEDS: DABIGATRAN 150 MG PO SCH ×3 (09:45→18:15)
[2016-03-08] MEDS: Acetaminophen 650 MG Tab.ER PO PRN (09:47)
[2016-03-08] MEDS: CALCIUM CARBONATE PO SCH (18:11)
[2016-03-08] MEDS: MAGNESIUM OXIDE PO SCH (18:11)
[2016-03-08] MEDS: ZINC GLUCONATE PO SCH (18:11)
[2016-03-08] MEDS: OMEGA FISH OIL PO SCH (18:12)
[2016-03-08] MEDS: [UNRECOGNIZED DRUG - OTHER] PO SCH (18:12)
[2016-03-09] MEDS: LEVOTHYROXINE 75 MCG PO SCH (06:18)
[2016-03-09] MEDS: CHOLECALCIFEROL 5000 UNIT PO SCH (09:43)
[2016-03-09] MEDS: DABIGATRAN 150 MG PO SCH ×2 (09:43→17:59)
[2016-03-09] MEDS: UBIDECARENONE 100 MG PO SCH ×2 (09:44→20:16)
[2016-03-09] MEDS: Acetaminophen 650 MG Tab.ER PO PRN (09:45)
[2016-03-09] MEDS: CALCIUM CARBONATE PO SCH (17:59)
[2016-03-09] MEDS: OMEGA FISH OIL PO SCH (17:59)
[2016-03-09] MEDS: ZINC GLUCONATE PO SCH (17:59)
[2016-03-09] MEDS: MAGNESIUM OXIDE PO SCH (17:59)
[2016-03-09] MEDS: [UNRECOGNIZED DRUG - OTHER] PO SCH (17:59)
[2016-03-10] MEDS: LEVOTHYROXINE 75 MCG PO SCH (06:06)
[2016-03-10] MEDS: DABIGATRAN 150 MG PO SCH ×2 (09:33→18:33)
[2016-03-10] MEDS: UBIDECARENONE 100 MG PO SCH ×2 (09:33→18:33)
[2016-03-10] MEDS: CHOLECALCIFEROL 5000 UNIT PO SCH (09:33)
[2016-03-10] MEDS: Acetaminophen 650 MG Tab.ER PO PRN (09:34)
[2016-03-10] MEDS: CONJUGATED ESTROGENS TOP SCH ×2 (09:35→10:40)
[2016-03-10] MEDS: [UNRECOGNIZED DRUG - OTHER] TOP SCH ×2 (09:35→10:40)
[2016-03-10] MEDS: OMEGA FISH OIL PO SCH (18:33)
[2016-03-10] MEDS: MAGNESIUM OXIDE PO SCH (18:34)
[2016-03-10] MEDS: CALCIUM CARBONATE PO SCH (18:34)
[2016-03-10] MEDS: ZINC GLUCONATE PO SCH (18:34)
[2016-03-10] MEDS: [UNRECOGNIZED DRUG - OTHER] PO SCH (18:34)
[2016-03-10] MEDS: Betamethasone Dipropionate/Clotrimazole 0.05-1% Crm 15 GM Tube TOP SCH (23:26)
[2016-03-11] MEDS: LEVOTHYROXINE 75 MCG PO SCH (06:19)
[2016-03-11] MEDS: CHOLECALCIFEROL 5000 UNIT PO SCH (09:46)
[2016-03-11] MEDS: DABIGATRAN 150 MG PO SCH ×2 (09:47→18:01)
[2016-03-11] MEDS: UBIDECARENONE 100 MG PO SCH ×2 (09:47→18:04)
[2016-03-11] MEDS: Acetaminophen 650 MG Tab.ER PO PRN (09:49)
[2016-03-11] MEDS: Carbamide Peroxide 6.5% Otic Soln 15 ML Bottle EARLF PRN (17:28)
[2016-03-11] MEDS: CALCIUM CARBONATE PO SCH (18:01)
[2016-03-11] MEDS: MAGNESIUM OXIDE PO SCH (18:01)
[2016-03-11] MEDS: ZINC GLUCONATE PO SCH (18:01)
[2016-03-11] MEDS: OMEGA FISH OIL PO SCH (18:02)
[2016-03-11] MEDS: [UNRECOGNIZED DRUG - OTHER] PO SCH (18:03)
[2016-03-12] MEDS: LEVOTHYROXINE 75 MCG PO SCH (06:19)
[2016-03-12] MEDS: CHOLECALCIFEROL 5000 UNIT PO SCH (09:12)
[2016-03-12] MEDS: UBIDECARENONE 100 MG PO SCH ×2 (09:13→18:03)
[2016-03-12] MEDS: DABIGATRAN 150 MG PO SCH ×2 (09:13→18:01)
[2016-03-12] MEDS: Acetaminophen 650 MG Tab.ER PO PRN ×2 (09:14→18:03)
[2016-03-12] MEDS: Carbamide Peroxide 6.5% Otic Soln 15 ML Bottle EARLF PRN (15:30)
[2016-03-12] MEDS: MAGNESIUM OXIDE PO SCH (18:01)
[2016-03-12] MEDS: ZINC GLUCONATE PO SCH (18:01)
[2016-03-12] MEDS: CALCIUM CARBONATE PO SCH (18:01)
[2016-03-12] MEDS: OMEGA FISH OIL PO SCH (18:02)
[2016-03-12] MEDS: [UNRECOGNIZED DRUG - OTHER] PO SCH (18:02)
[2016-03-12] MEDS: [UNRECOGNIZED DRUG - OTHER] TOP SCH (18:08)
[2016-03-12] MEDS: CONJUGATED ESTROGENS TOP SCH (18:08)
[2016-03-12] MEDS: Betamethasone Dipropionate/Clotrimazole 0.05-1% Crm 15 GM Tube TOP SCH (23:16)
[2016-03-13] MEDS: LEVOTHYROXINE 75 MCG PO SCH (06:08)
[2016-03-13] MEDS: Acetaminophen 650 MG Tab.ER PO PRN (09:49)
[2016-03-13] MEDS: DABIGATRAN 150 MG PO SCH ×2 (09:50→18:12)
[2016-03-13] MEDS: UBIDECARENONE 100 MG PO SCH ×2 (09:51→18:13)
[2016-03-13] MEDS: CHOLECALCIFEROL 5000 UNIT PO SCH (09:52)
[2016-03-13] MEDS: [UNRECOGNIZED DRUG - OTHER] PO SCH (18:13)
[2016-03-13] MEDS: CALCIUM CARBONATE PO SCH (18:13)
[2016-03-13] MEDS: ZINC GLUCONATE PO SCH (18:13)
[2016-03-13] MEDS: OMEGA FISH OIL PO SCH (18:13)
[2016-03-13] MEDS: MAGNESIUM OXIDE PO SCH (18:13)
[2016-03-13] MEDS: Carbamide Peroxide 6.5% Otic Soln 15 ML Bottle EARLF PRN (18:14)
[2016-03-14] MEDS: LEVOTHYROXINE 75 MCG PO SCH (06:48)
[2016-03-14] MEDS: Acetaminophen 650 MG Tab.ER PO PRN (09:56)
[2016-03-14] MEDS: DABIGATRAN 150 MG PO SCH ×2 (09:56→18:37)
[2016-03-14] MEDS: CHOLECALCIFEROL 5000 UNIT PO SCH (09:57)
[2016-03-14] MEDS: UBIDECARENONE 100 MG PO SCH ×2 (09:57→18:37)
[2016-03-14] MEDS: ZINC GLUCONATE PO SCH (18:37)
[2016-03-14] MEDS: CALCIUM CARBONATE PO SCH (18:37)
[2016-03-14] MEDS: MAGNESIUM OXIDE PO SCH (18:37)
[2016-03-14] MEDS: OMEGA FISH OIL PO SCH (18:37)
[2016-03-14] MEDS: [UNRECOGNIZED DRUG - OTHER] PO SCH (18:37)
[2016-03-14] MEDS: Betamethasone Dipropionate/Clotrimazole 0.05-1% Crm 15 GM Tube TOP SCH (23:11)
[2016-03-15] MEDS: DABIGATRAN 150 MG PO SCH ×2 (10:07→18:12)
[2016-03-15] MEDS: Acetaminophen 650 MG Tab.ER PO PRN (10:07)
[2016-03-15] MEDS: CONJUGATED ESTROGENS TOP SCH (10:08)
[2016-03-15] MEDS: [UNRECOGNIZED DRUG - OTHER] TOP SCH (10:08)
[2016-03-15] MEDS: UBIDECARENONE 100 MG PO SCH ×2 (10:09→18:11)
[2016-03-15] MEDS: CHOLECALCIFEROL 5000 UNIT PO SCH (10:09)
[2016-03-15] MEDS: ZINC GLUCONATE PO SCH (18:12)
[2016-03-15] MEDS: MAGNESIUM OXIDE PO SCH (18:12)
[2016-03-15] MEDS: CALCIUM CARBONATE PO SCH (18:12)
[2016-03-15] MEDS: [UNRECOGNIZED DRUG - OTHER] PO SCH (18:12)
[2016-03-15] MEDS: OMEGA FISH OIL PO SCH (18:12)
[2016-03-15] MEDS: Betamethasone Dipropionate/Clotrimazole 0.05-1% Crm 15 GM Tube TOP SCH (23:16)
[2016-03-16] MEDS: LEVOTHYROXINE 75 MCG PO SCH (06:38)
[2016-03-16] MEDS: Acetaminophen 650 MG Tab.ER PO PRN (09:07)
[2016-03-16] MEDS: DABIGATRAN 150 MG PO SCH ×2 (09:07→18:05)
[2016-03-16] MEDS: CHOLECALCIFEROL 5000 UNIT PO SCH (09:08)
[2016-03-16] MEDS: UBIDECARENONE 100 MG PO SCH ×2 (09:08→18:07)
[2016-03-16] MEDS: CALCIUM CARBONATE PO SCH (18:05)
[2016-03-16] MEDS: OMEGA FISH OIL PO SCH (18:05)
[2016-03-16] MEDS: MAGNESIUM OXIDE PO SCH (18:05)
[2016-03-16] MEDS: [UNRECOGNIZED DRUG - OTHER] PO SCH (18:05)
[2016-03-16] MEDS: ZINC GLUCONATE PO SCH (18:05)
[2016-03-17] MEDS: LEVOTHYROXINE 75 MCG PO SCH (06:53)
[2016-03-17] MEDS: CHOLECALCIFEROL 5000 UNIT PO SCH (09:21)
[2016-03-17] MEDS: DABIGATRAN 150 MG PO SCH ×2 (09:21→18:18)
[2016-03-17] MEDS: UBIDECARENONE 100 MG PO SCH ×2 (09:21→18:18)
[2016-03-17] MEDS: Acetaminophen 650 MG Tab.ER PO PRN (09:22)
[2016-03-17] MEDS: OMEGA FISH OIL PO SCH (18:18)
[2016-03-17] MEDS: [UNRECOGNIZED DRUG - OTHER] PO SCH (18:18)
[2016-03-17] MEDS: CALCIUM CARBONATE PO SCH (18:18)
[2016-03-17] MEDS: ZINC GLUCONATE PO SCH (18:18)
[2016-03-17] MEDS: MAGNESIUM OXIDE PO SCH (18:18)
[2016-03-17] MEDS: Betamethasone Dipropionate/Clotrimazole 0.05-1% Crm 15 GM Tube TOP SCH (23:27)
[2016-03-18] MEDS: LEVOTHYROXINE 75 MCG PO SCH ×2 (05:56→06:00)
--- NOTE | 2016-03-18 08:36 | PN ---
Progress Note for EMILY SHEETS Date: 03/14/2016 Room #: VM.207 SUBJECTIVE: This in an 86-year-old, on long-term swing bed. She has had some trouble hearing. She has waxed. She has been getting some ear drops. She otherwise says her bottom is better and no longer house. She has no other concerns or complaints. OBJECTIVE: Vital Signs: Temperature is 97.5, pulse 66, blood pressure 115/71, respiratory rate 16, O2 92% on room air. General: She is in no acute distress. Her heart is regular. Lungs: Sounds are clear to auscultation bilaterally without crackles or wheezes. Extremities: Warm and dry. No edema. HEENT: Shows bilateral cerumen impaction. ASSESSMENT: 1. Hearing loss due to cerumen impaction. I will try irrigation this morning, if that does not work, she can come over to the clinic at her convenience. 2. Atrophic vaginitis and vaginal irritation, doing better. She has had some PT for stress urinary incontinence. 3. Atrial fibrillation with previous transient ischemic attack on Pradaxa. 4. Mild thrombocytopenia, chronic leg weakness, severe osteoarthritis, hypothyroidism, and essential hypertension, controlled. PLAN: We will recertify in 1 month. No lab work is due. Ear irrigation to help her hearing. MKA: 03/14/2016 08:52:11 MODL: 03/14/2016 09:16:12 /[id number]
[2016-03-18] MEDS: CHOLECALCIFEROL 5000 UNIT PO SCH (09:26)
[2016-03-18] MEDS: DABIGATRAN 150 MG PO SCH ×2 (09:26→18:11)
[2016-03-18] MEDS: UBIDECARENONE 100 MG PO SCH ×2 (09:26→18:11)
[2016-03-18] MEDS: Acetaminophen 650 MG Tab.ER PO PRN (09:27)
[2016-03-18] MEDS: CONJUGATED ESTROGENS TOP SCH (09:28)
[2016-03-18] MEDS: [UNRECOGNIZED DRUG - OTHER] TOP SCH (09:28)
[2016-03-18] MEDS: ZINC GLUCONATE PO SCH (18:11)
[2016-03-18] MEDS: OMEGA FISH OIL PO SCH (18:11)
[2016-03-18] MEDS: MAGNESIUM OXIDE PO SCH (18:11)
[2016-03-18] MEDS: CALCIUM CARBONATE PO SCH (18:11)
[2016-03-18] MEDS: [UNRECOGNIZED DRUG - OTHER] PO SCH (18:11)
[2016-03-19] MEDS: LEVOTHYROXINE 75 MCG PO SCH (05:59)
[2016-03-19] MEDS: DABIGATRAN 150 MG PO SCH ×2 (09:20→18:14)
[2016-03-19] MEDS: Acetaminophen 650 MG Tab.ER PO PRN (09:21)
[2016-03-19] MEDS: CHOLECALCIFEROL 5000 UNIT PO SCH (09:21)
[2016-03-19] MEDS: UBIDECARENONE 100 MG PO SCH ×2 (09:21→18:14)
[2016-03-19] MEDS: ZINC GLUCONATE PO SCH (18:14)
[2016-03-19] MEDS: OMEGA FISH OIL PO SCH (18:14)
[2016-03-19] MEDS: CALCIUM CARBONATE PO SCH (18:14)
[2016-03-19] MEDS: MAGNESIUM OXIDE PO SCH (18:14)
[2016-03-19] MEDS: [UNRECOGNIZED DRUG - OTHER] PO SCH (18:14)
[2016-03-19] MEDS: Betamethasone Dipropionate/Clotrimazole 0.05-1% Crm 15 GM Tube TOP SCH (23:25)
[2016-03-20] MEDS: LEVOTHYROXINE 75 MCG PO SCH (06:38)
[2016-03-20] MEDS: DABIGATRAN 150 MG PO SCH ×2 (09:42→18:22)
[2016-03-20] MEDS: CHOLECALCIFEROL 5000 UNIT PO SCH (09:42)
[2016-03-20] MEDS: UBIDECARENONE 100 MG PO SCH ×2 (09:42→18:23)
[2016-03-20] MEDS: Acetaminophen 650 MG Tab.ER PO PRN (09:42)
[2016-03-20] MEDS: OMEGA FISH OIL PO SCH (18:23)
[2016-03-20] MEDS: CALCIUM CARBONATE PO SCH (18:24)
[2016-03-20] MEDS: MAGNESIUM OXIDE PO SCH (18:24)
[2016-03-20] MEDS: ZINC GLUCONATE PO SCH (18:24)
[2016-03-20] MEDS: [UNRECOGNIZED DRUG - OTHER] PO SCH (18:24)
[2016-03-21] MEDS: LEVOTHYROXINE 75 MCG PO SCH (06:08)
[2016-03-21] MEDS: DABIGATRAN 150 MG PO SCH ×2 (09:27→19:00)
[2016-03-21] MEDS: UBIDECARENONE 100 MG PO SCH ×2 (09:27→19:00)
[2016-03-21] MEDS: CHOLECALCIFEROL 5000 UNIT PO SCH (09:27)
[2016-03-21] MEDS: Acetaminophen 650 MG Tab.ER PO PRN (09:28)
[2016-03-21] MEDS: [UNRECOGNIZED DRUG - OTHER] TOP SCH (09:28)
[2016-03-21] MEDS: CONJUGATED ESTROGENS TOP SCH (09:28)
[2016-03-21] MEDS: ZINC GLUCONATE PO SCH (19:00)
[2016-03-21] MEDS: [UNRECOGNIZED DRUG - OTHER] PO SCH (19:00)
[2016-03-21] MEDS: CALCIUM CARBONATE PO SCH (19:00)
[2016-03-21] MEDS: OMEGA FISH OIL PO SCH (19:00)
[2016-03-21] MEDS: MAGNESIUM OXIDE PO SCH (19:00)
[2016-03-21] MEDS: Betamethasone Dipropionate/Clotrimazole 0.05-1% Crm 15 GM Tube TOP SCH (23:37)
[2016-03-22] MEDS: Acetaminophen 650 MG Tab.ER PO PRN (09:39)
[2016-03-22] MEDS: DABIGATRAN 150 MG PO SCH ×2 (09:39→18:24)
[2016-03-22] MEDS: CHOLECALCIFEROL 5000 UNIT PO SCH (09:40)
[2016-03-22] MEDS: UBIDECARENONE 100 MG PO SCH ×2 (09:40→18:24)
[2016-03-22] MEDS: [UNRECOGNIZED DRUG - OTHER] PO SCH (18:25)
[2016-03-22] MEDS: OMEGA FISH OIL PO SCH (18:25)
[2016-03-22] MEDS: MAGNESIUM OXIDE PO SCH (18:52)
[2016-03-22] MEDS: CALCIUM CARBONATE PO SCH (18:52)
[2016-03-22] MEDS: ZINC GLUCONATE PO SCH (18:52)
[2016-03-23] MEDS: LEVOTHYROXINE 75 MCG PO SCH (06:53)
[2016-03-23] MEDS: Acetaminophen 650 MG Tab.ER PO PRN (10:11)
[2016-03-23] MEDS: DABIGATRAN 150 MG PO SCH ×2 (10:12→18:38)
[2016-03-23] MEDS: UBIDECARENONE 100 MG PO SCH ×2 (10:13→18:10)
[2016-03-23] MEDS: CHOLECALCIFEROL 5000 UNIT PO SCH (10:13)
[2016-03-23] MEDS: CALCIUM CARBONATE PO SCH (18:10)
[2016-03-23] MEDS: MAGNESIUM OXIDE PO SCH (18:10)
[2016-03-23] MEDS: ZINC GLUCONATE PO SCH (18:10)
[2016-03-23] MEDS: OMEGA FISH OIL PO SCH (18:10)
[2016-03-23] MEDS: [UNRECOGNIZED DRUG - OTHER] PO SCH (18:10)
[2016-03-24] MEDS: LEVOTHYROXINE 75 MCG PO SCH (06:42)
[2016-03-24] MEDS: [UNRECOGNIZED DRUG - OTHER] TOP SCH (10:46)
[2016-03-24] MEDS: CONJUGATED ESTROGENS TOP SCH (10:46)
[2016-03-24] MEDS: UBIDECARENONE 100 MG PO SCH ×2 (10:51→18:48)
[2016-03-24] MEDS: Acetaminophen 650 MG Tab.ER PO PRN (10:51)
[2016-03-24] MEDS: DABIGATRAN 150 MG PO SCH ×2 (10:51→18:47)
[2016-03-24] MEDS: CHOLECALCIFEROL 5000 UNIT PO SCH (10:51)
[2016-03-24] MEDS: OMEGA FISH OIL PO SCH (18:50)
[2016-03-24] MEDS: [UNRECOGNIZED DRUG - OTHER] PO SCH (18:50)
[2016-03-24] MEDS: MAGNESIUM OXIDE PO SCH (18:51)
[2016-03-24] MEDS: ZINC GLUCONATE PO SCH (18:51)
[2016-03-24] MEDS: CALCIUM CARBONATE PO SCH (18:51)
[2016-03-25] MEDS: Betamethasone Dipropionate/Clotrimazole 0.05-1% Crm 15 GM Tube TOP SCH (05:19)
[2016-03-25] MEDS: LEVOTHYROXINE 75 MCG PO SCH (06:14)
[2016-03-25] MEDS: DABIGATRAN 150 MG PO SCH ×2 (09:48→20:49)
[2016-03-25] MEDS: UBIDECARENONE 100 MG PO SCH ×2 (09:49→20:50)
[2016-03-25] MEDS: CHOLECALCIFEROL 5000 UNIT PO SCH (09:49)
[2016-03-25] MEDS: Acetaminophen 650 MG Tab.ER PO PRN (09:49)
[2016-03-25] MEDS: ZINC GLUCONATE PO SCH (20:48)
[2016-03-25] MEDS: CALCIUM CARBONATE PO SCH (20:48)
[2016-03-25] MEDS: [UNRECOGNIZED DRUG - OTHER] PO SCH (20:48)
[2016-03-25] MEDS: OMEGA FISH OIL PO SCH (20:48)
[2016-03-25] MEDS: MAGNESIUM OXIDE PO SCH (20:48)
[2016-03-26] MEDS: LEVOTHYROXINE 75 MCG PO SCH (09:38)
[2016-03-26] MEDS: Acetaminophen 650 MG Tab.ER PO PRN (09:39)
[2016-03-26] MEDS: UBIDECARENONE 100 MG PO SCH ×2 (09:39→18:29)
[2016-03-26] MEDS: DABIGATRAN 150 MG PO SCH ×2 (09:39→18:29)
[2016-03-26] MEDS: CHOLECALCIFEROL 5000 UNIT PO SCH (09:39)
[2016-03-26] MEDS: MAGNESIUM OXIDE PO SCH (18:29)
[2016-03-26] MEDS: OMEGA FISH OIL PO SCH (18:29)
[2016-03-26] MEDS: ZINC GLUCONATE PO SCH (18:29)
[2016-03-26] MEDS: CALCIUM CARBONATE PO SCH (18:29)
[2016-03-26] MEDS: [UNRECOGNIZED DRUG - OTHER] PO SCH (18:29)
[2016-03-26] MEDS: Betamethasone Dipropionate/Clotrimazole 0.05-1% Crm 15 GM Tube TOP SCH (23:08)
[2016-03-27] MEDS: LEVOTHYROXINE 75 MCG PO SCH (06:15)
[2016-03-27] MEDS: DABIGATRAN 150 MG PO SCH ×2 (09:25→18:17)
[2016-03-27] MEDS: CHOLECALCIFEROL 5000 UNIT PO SCH (09:26)
[2016-03-27] MEDS: UBIDECARENONE 100 MG PO SCH ×2 (09:26→18:17)
[2016-03-27] MEDS: Acetaminophen 650 MG Tab.ER PO PRN (09:27)
[2016-03-27] MEDS: [UNRECOGNIZED DRUG - OTHER] TOP SCH (09:27)
[2016-03-27] MEDS: CONJUGATED ESTROGENS TOP SCH (09:27)
[2016-03-27] MEDS: ZINC GLUCONATE PO SCH (18:18)
[2016-03-27] MEDS: OMEGA FISH OIL PO SCH (18:18)
[2016-03-27] MEDS: CALCIUM CARBONATE PO SCH (18:18)
[2016-03-27] MEDS: MAGNESIUM OXIDE PO SCH (18:18)
[2016-03-27] MEDS: [UNRECOGNIZED DRUG - OTHER] PO SCH (18:18)
[2016-03-28] MEDS: LEVOTHYROXINE 75 MCG PO SCH (06:12)
[2016-03-28] MEDS: CHOLECALCIFEROL 5000 UNIT PO SCH (09:04)
[2016-03-28] MEDS: UBIDECARENONE 100 MG PO SCH ×2 (09:05→18:03)
[2016-03-28] MEDS: DABIGATRAN 150 MG PO SCH ×2 (09:05→18:03)
[2016-03-28] MEDS: Acetaminophen 650 MG Tab.ER PO PRN ×2 (09:06→18:04)
[2016-03-28] MEDS: OMEGA FISH OIL PO SCH (18:02)
[2016-03-28] MEDS: [UNRECOGNIZED DRUG - OTHER] PO SCH (18:02)
[2016-03-28] MEDS: ZINC GLUCONATE PO SCH (18:02)
[2016-03-28] MEDS: MAGNESIUM OXIDE PO SCH (18:02)
[2016-03-28] MEDS: CALCIUM CARBONATE PO SCH (18:02)
[2016-03-29] MEDS: DABIGATRAN 150 MG PO SCH ×2 (09:36→18:36)
[2016-03-29] MEDS: CHOLECALCIFEROL 5000 UNIT PO SCH (09:36)
[2016-03-29] MEDS: UBIDECARENONE 100 MG PO SCH ×2 (09:37→18:35)
[2016-03-29] MEDS: Acetaminophen 650 MG Tab.ER PO PRN (09:38)
[2016-03-29] MEDS: Betamethasone Dipropionate/Clotrimazole 0.05-1% Crm 15 GM Tube TOP SCH (09:42)
[2016-03-29] MEDS: OMEGA FISH OIL PO SCH (18:35)
[2016-03-29] MEDS: MAGNESIUM OXIDE PO SCH (18:35)
[2016-03-29] MEDS: ZINC GLUCONATE PO SCH (18:35)
[2016-03-29] MEDS: CALCIUM CARBONATE PO SCH (18:35)
[2016-03-29] MEDS: [UNRECOGNIZED DRUG - OTHER] PO SCH (18:36)
[2016-03-30] MEDS: LEVOTHYROXINE 75 MCG PO SCH (06:07)
[2016-03-30] MEDS: [UNRECOGNIZED DRUG - OTHER] TOP SCH (10:02)
[2016-03-30] MEDS: CONJUGATED ESTROGENS TOP SCH (10:02)
[2016-03-30] MEDS: CHOLECALCIFEROL 5000 UNIT PO SCH (10:12)
[2016-03-30] MEDS: DABIGATRAN 150 MG PO SCH ×2 (10:12→18:26)
[2016-03-30] MEDS: UBIDECARENONE 100 MG PO SCH ×2 (10:13→18:25)
[2016-03-30] MEDS: Acetaminophen 650 MG Tab.ER PO PRN (10:14)
[2016-03-30] MEDS: OMEGA FISH OIL PO SCH (18:25)
[2016-03-30] MEDS: ZINC GLUCONATE PO SCH (18:26)
[2016-03-30] MEDS: CALCIUM CARBONATE PO SCH (18:26)
[2016-03-30] MEDS: MAGNESIUM OXIDE PO SCH (18:26)
[2016-03-30] MEDS: [UNRECOGNIZED DRUG - OTHER] PO SCH (18:26)
[2016-03-31] MEDS: LEVOTHYROXINE 75 MCG PO SCH (06:09)
[2016-03-31] MEDS: UBIDECARENONE 100 MG PO SCH ×2 (09:06→18:32)
[2016-03-31] MEDS: DABIGATRAN 150 MG PO SCH ×2 (09:06→18:32)
[2016-03-31] MEDS: CHOLECALCIFEROL 5000 UNIT PO SCH (09:06)
[2016-03-31] MEDS: Acetaminophen 650 MG Tab.ER PO PRN (09:07)
[2016-03-31] MEDS: MAGNESIUM OXIDE PO SCH (18:33)
[2016-03-31] MEDS: CALCIUM CARBONATE PO SCH (18:33)
[2016-03-31] MEDS: OMEGA FISH OIL PO SCH (18:33)
[2016-03-31] MEDS: [UNRECOGNIZED DRUG - OTHER] PO SCH (18:33)
[2016-03-31] MEDS: ZINC GLUCONATE PO SCH (18:33)
[2016-03-31] MEDS: CLOBETASOL 0.05% TOP PRN (22:51)
[2016-04-01] MEDS: Betamethasone Dipropionate/Clotrimazole 0.05-1% Crm 15 GM Tube TOP SCH (06:43)
[2016-04-01] MEDS: LEVOTHYROXINE 75 MCG PO SCH (06:44)
[2016-04-01] MEDS: UBIDECARENONE 100 MG PO SCH ×2 (10:44→18:00)
[2016-04-01] MEDS: CHOLECALCIFEROL 5000 UNIT PO SCH (10:46)
[2016-04-01] MEDS: DABIGATRAN 150 MG PO SCH ×2 (10:47→18:00)
[2016-04-01] MEDS: Acetaminophen 650 MG Tab.ER PO PRN (10:47)
[2016-04-01] MEDS: [UNRECOGNIZED DRUG - OTHER] PO SCH (18:00)
[2016-04-01] MEDS: MAGNESIUM OXIDE PO SCH (18:00)
[2016-04-01] MEDS: ZINC GLUCONATE PO SCH (18:00)
[2016-04-01] MEDS: OMEGA FISH OIL PO SCH (18:00)
[2016-04-01] MEDS: CALCIUM CARBONATE PO SCH (18:00)
[2016-04-02] MEDS: LEVOTHYROXINE 75 MCG PO SCH (06:38)
[2016-04-02] MEDS: DABIGATRAN 150 MG PO SCH ×2 (09:11→18:11)
[2016-04-02] MEDS: Acetaminophen 650 MG Tab.ER PO PRN (09:12)
[2016-04-02] MEDS: UBIDECARENONE 100 MG PO SCH ×2 (09:12→18:11)
[2016-04-02] MEDS: CHOLECALCIFEROL 5000 UNIT PO SCH (09:12)
[2016-04-02] MEDS: CONJUGATED ESTROGENS TOP SCH (09:13)
[2016-04-02] MEDS: [UNRECOGNIZED DRUG - OTHER] TOP SCH (09:13)
[2016-04-02] MEDS: OMEGA FISH OIL PO SCH (18:11)
[2016-04-02] MEDS: MAGNESIUM OXIDE PO SCH (18:11)
[2016-04-02] MEDS: [UNRECOGNIZED DRUG - OTHER] PO SCH (18:11)
[2016-04-02] MEDS: ZINC GLUCONATE PO SCH (18:11)
[2016-04-02] MEDS: CALCIUM CARBONATE PO SCH (18:11)
[2016-04-02] MEDS: Betamethasone Dipropionate/Clotrimazole 0.05-1% Crm 15 GM Tube TOP SCH (22:46)
[2016-04-03] MEDS: LEVOTHYROXINE 75 MCG PO SCH (05:59)
[2016-04-03] MEDS: UBIDECARENONE 100 MG PO SCH ×2 (09:04→18:15)
[2016-04-03] MEDS: CHOLECALCIFEROL 5000 UNIT PO SCH (09:04)
[2016-04-03] MEDS: DABIGATRAN 150 MG PO SCH ×2 (09:04→18:15)
[2016-04-03] MEDS: Acetaminophen 650 MG Tab.ER PO PRN ×2 (09:05→16:29)
[2016-04-03] MEDS: OMEGA FISH OIL PO SCH (18:15)
[2016-04-03] MEDS: ZINC GLUCONATE PO SCH (18:16)
[2016-04-03] MEDS: MAGNESIUM OXIDE PO SCH (18:16)
[2016-04-03] MEDS: [UNRECOGNIZED DRUG - OTHER] PO SCH (18:16)
[2016-04-03] MEDS: CALCIUM CARBONATE PO SCH (18:16)
[2016-04-04] MEDS: LEVOTHYROXINE 75 MCG PO SCH (06:05)
[2016-04-04] MEDS: CHOLECALCIFEROL 5000 UNIT PO SCH (09:25)
[2016-04-04] MEDS: UBIDECARENONE 100 MG PO SCH ×2 (09:26→18:20)
[2016-04-04] MEDS: Acetaminophen 650 MG Tab.ER PO PRN (09:26)
[2016-04-04] MEDS: DABIGATRAN 150 MG PO SCH ×2 (09:26→18:20)
[2016-04-04] MEDS: ZINC GLUCONATE PO SCH (18:19)
[2016-04-04] MEDS: CALCIUM CARBONATE PO SCH (18:19)
[2016-04-04] MEDS: MAGNESIUM OXIDE PO SCH (18:19)
[2016-04-04] MEDS: OMEGA FISH OIL PO SCH (18:20)
[2016-04-04] MEDS: [UNRECOGNIZED DRUG - OTHER] PO SCH (18:20)
[2016-04-04] MEDS: Betamethasone Dipropionate/Clotrimazole 0.05-1% Crm 15 GM Tube TOP SCH (20:48)
[2016-04-05] MEDS: Betamethasone Dipropionate/Clotrimazole 0.05-1% Crm 15 GM Tube TOP SCH (00:35)
[2016-04-05] MEDS: DABIGATRAN 150 MG PO SCH ×2 (09:24→18:24)
[2016-04-05] MEDS: [UNRECOGNIZED DRUG - OTHER] TOP SCH (09:24)
[2016-04-05] MEDS: CONJUGATED ESTROGENS TOP SCH (09:24)
[2016-04-05] MEDS: UBIDECARENONE 100 MG PO SCH ×2 (09:25→18:24)
[2016-04-05] MEDS: Acetaminophen 650 MG Tab.ER PO PRN (09:25)
[2016-04-05] MEDS: CHOLECALCIFEROL 5000 UNIT PO SCH (09:25)
[2016-04-05] MEDS: ZINC GLUCONATE PO SCH (18:24)
[2016-04-05] MEDS: [UNRECOGNIZED DRUG - OTHER] PO SCH (18:24)
[2016-04-05] MEDS: CALCIUM CARBONATE PO SCH (18:24)
[2016-04-05] MEDS: OMEGA FISH OIL PO SCH (18:24)
[2016-04-05] MEDS: MAGNESIUM OXIDE PO SCH (18:24)
[2016-04-06] MEDS: LEVOTHYROXINE 75 MCG PO SCH (06:04)
[2016-04-06] MEDS: DABIGATRAN 150 MG PO SCH ×2 (10:07→19:18)
[2016-04-06] MEDS: Acetaminophen 650 MG Tab.ER PO PRN (10:08)
[2016-04-06] MEDS: UBIDECARENONE 100 MG PO SCH ×2 (10:08→19:19)
[2016-04-06] MEDS: CHOLECALCIFEROL 5000 UNIT PO SCH (10:08)
[2016-04-06] MEDS: CALCIUM CARBONATE PO SCH (19:17)
[2016-04-06] MEDS: MAGNESIUM OXIDE PO SCH (19:17)
[2016-04-06] MEDS: ZINC GLUCONATE PO SCH (19:17)
[2016-04-06] MEDS: [UNRECOGNIZED DRUG - OTHER] PO SCH (19:18)
[2016-04-06] MEDS: OMEGA FISH OIL PO SCH (19:18)
[2016-04-07] MEDS: LEVOTHYROXINE 75 MCG PO SCH (06:16)
[2016-04-07] MEDS: CHOLECALCIFEROL 5000 UNIT PO SCH (09:52)
[2016-04-07] MEDS: UBIDECARENONE 100 MG PO SCH ×2 (09:52→18:15)
[2016-04-07] MEDS: DABIGATRAN 150 MG PO SCH ×2 (09:52→18:15)
[2016-04-07] MEDS: Acetaminophen 650 MG Tab.ER PO PRN ×2 (09:53→18:17)
[2016-04-07] MEDS: OMEGA FISH OIL PO SCH (18:15)
[2016-04-07] MEDS: ZINC GLUCONATE PO SCH (18:15)
[2016-04-07] MEDS: CALCIUM CARBONATE PO SCH (18:15)
[2016-04-07] MEDS: [UNRECOGNIZED DRUG - OTHER] PO SCH (18:15)
[2016-04-07] MEDS: MAGNESIUM OXIDE PO SCH (18:15)
[2016-04-07] MEDS: Betamethasone Dipropionate/Clotrimazole 0.05-1% Crm 15 GM Tube TOP SCH (23:03)
[2016-04-08] MEDS: LEVOTHYROXINE 75 MCG PO SCH (06:14)
[2016-04-08] MEDS: UBIDECARENONE 100 MG PO SCH ×2 (09:28→18:07)
[2016-04-08] MEDS: CHOLECALCIFEROL 5000 UNIT PO SCH (09:30)
[2016-04-08] MEDS: DABIGATRAN 150 MG PO SCH ×2 (09:31→18:08)
[2016-04-08] MEDS: CONJUGATED ESTROGENS TOP SCH (09:33)
[2016-04-08] MEDS: [UNRECOGNIZED DRUG - OTHER] TOP SCH (09:33)
[2016-04-08] MEDS: Acetaminophen 650 MG Tab.ER PO PRN (11:03)
[2016-04-08] MEDS: [UNRECOGNIZED DRUG - OTHER] PO SCH (18:06)
[2016-04-08] MEDS: CALCIUM CARBONATE PO SCH (18:07)
[2016-04-08] MEDS: ZINC GLUCONATE PO SCH (18:07)
[2016-04-08] MEDS: MAGNESIUM OXIDE PO SCH (18:07)
[2016-04-08] MEDS: OMEGA FISH OIL PO SCH (18:07)
[2016-04-09] MEDS: LEVOTHYROXINE 75 MCG PO SCH ×2 (05:55→06:00)
[2016-04-09] MEDS: Acetaminophen 650 MG Tab.ER PO PRN (09:50)
[2016-04-09] MEDS: DABIGATRAN 150 MG PO SCH ×2 (09:51→20:01)
[2016-04-09] MEDS: CHOLECALCIFEROL 5000 UNIT PO SCH (09:52)
[2016-04-09] MEDS: UBIDECARENONE 100 MG PO SCH ×2 (09:53→20:00)
[2016-04-09] MEDS: ZINC GLUCONATE PO SCH (19:59)
[2016-04-09] MEDS: OMEGA FISH OIL PO SCH (19:59)
[2016-04-09] MEDS: [UNRECOGNIZED DRUG - OTHER] PO SCH (19:59)
[2016-04-09] MEDS: CALCIUM CARBONATE PO SCH (19:59)
[2016-04-09] MEDS: MAGNESIUM OXIDE PO SCH (19:59)
[2016-04-09] MEDS: Betamethasone Dipropionate/Clotrimazole 0.05-1% Crm 15 GM Tube TOP SCH (23:09)
[2016-04-10] MEDS: LEVOTHYROXINE 75 MCG PO SCH (06:39)
[2016-04-10] MEDS: CHOLECALCIFEROL 5000 UNIT PO SCH (09:39)
[2016-04-10] MEDS: UBIDECARENONE 100 MG PO SCH ×2 (09:39→18:23)
[2016-04-10] MEDS: DABIGATRAN 150 MG PO SCH ×2 (09:40→18:22)
[2016-04-10] MEDS: Acetaminophen 650 MG Tab.ER PO PRN ×2 (09:41→18:23)
[2016-04-10] MEDS: CALCIUM CARBONATE PO SCH (18:23)
[2016-04-10] MEDS: [UNRECOGNIZED DRUG - OTHER] PO SCH (18:23)
[2016-04-10] MEDS: ZINC GLUCONATE PO SCH (18:23)
[2016-04-10] MEDS: OMEGA FISH OIL PO SCH (18:23)
[2016-04-10] MEDS: MAGNESIUM OXIDE PO SCH (18:23)
[2016-04-11] MEDS: LEVOTHYROXINE 75 MCG PO SCH (08:26)
[2016-04-11] MEDS: DABIGATRAN 150 MG PO SCH ×2 (09:39→18:17)
[2016-04-11] MEDS: UBIDECARENONE 100 MG PO SCH ×2 (09:40→18:17)
[2016-04-11] MEDS: CHOLECALCIFEROL 5000 UNIT PO SCH (09:40)
[2016-04-11] MEDS: Acetaminophen 650 MG Tab.ER PO PRN (09:40)
[2016-04-11] MEDS: CONJUGATED ESTROGENS TOP SCH (09:41)
[2016-04-11] MEDS: [UNRECOGNIZED DRUG - OTHER] TOP SCH (09:41)
[2016-04-11] MEDS: OMEGA FISH OIL PO SCH (18:18)
[2016-04-11] MEDS: [UNRECOGNIZED DRUG - OTHER] PO SCH (18:18)
[2016-04-11] MEDS: ZINC GLUCONATE PO SCH (18:18)
[2016-04-11] MEDS: CALCIUM CARBONATE PO SCH (18:18)
[2016-04-11] MEDS: MAGNESIUM OXIDE PO SCH (18:18)
[2016-04-11] MEDS: Betamethasone Dipropionate/Clotrimazole 0.05-1% Crm 15 GM Tube TOP SCH (22:59)
[2016-04-12] MEDS: UBIDECARENONE 100 MG PO SCH ×2 (09:43→18:14)
[2016-04-12] MEDS: CHOLECALCIFEROL 5000 UNIT PO SCH (09:43)
[2016-04-12] MEDS: DABIGATRAN 150 MG PO SCH ×2 (09:44→18:15)
[2016-04-12] MEDS: Acetaminophen 650 MG Tab.ER PO PRN (09:46)
[2016-04-12] MEDS: OMEGA FISH OIL PO SCH (18:13)
[2016-04-12] MEDS: [UNRECOGNIZED DRUG - OTHER] PO SCH (18:13)
[2016-04-12] MEDS: ZINC GLUCONATE PO SCH (18:14)
[2016-04-12] MEDS: MAGNESIUM OXIDE PO SCH (18:14)
[2016-04-12] MEDS: CALCIUM CARBONATE PO SCH (18:14)
[2016-04-13] MEDS: LEVOTHYROXINE 75 MCG PO SCH (06:47)
[2016-04-13] MEDS: DABIGATRAN 150 MG PO SCH ×2 (09:53→18:14)
[2016-04-13] MEDS: UBIDECARENONE 100 MG PO SCH ×2 (09:53→18:14)
[2016-04-13] MEDS: CHOLECALCIFEROL 5000 UNIT PO SCH (09:53)
[2016-04-13] MEDS: Acetaminophen 650 MG Tab.ER PO PRN (09:54)
[2016-04-13] MEDS: CALCIUM CARBONATE PO SCH (18:13)
[2016-04-13] MEDS: MAGNESIUM OXIDE PO SCH (18:13)
[2016-04-13] MEDS: OMEGA FISH OIL PO SCH (18:13)
[2016-04-13] MEDS: ZINC GLUCONATE PO SCH (18:13)
[2016-04-13] MEDS: [UNRECOGNIZED DRUG - OTHER] PO SCH (18:14)
[2016-04-14] MEDS: LEVOTHYROXINE 75 MCG PO SCH (06:12)
[2016-04-14] MEDS: CHOLECALCIFEROL 5000 UNIT PO SCH (09:12)
[2016-04-14] MEDS: [UNRECOGNIZED DRUG - OTHER] TOP SCH (09:12)
[2016-04-14] MEDS: Acetaminophen 650 MG Tab.ER PO PRN (09:12)
[2016-04-14] MEDS: CONJUGATED ESTROGENS TOP SCH (09:12)
[2016-04-14] MEDS: UBIDECARENONE 100 MG PO SCH ×2 (09:12→18:05)
[2016-04-14] MEDS: DABIGATRAN 150 MG PO SCH ×2 (09:12→18:04)
[2016-04-14] MEDS: [UNRECOGNIZED DRUG - OTHER] PO SCH (18:05)
[2016-04-14] MEDS: CALCIUM CARBONATE PO SCH (18:05)
[2016-04-14] MEDS: ZINC GLUCONATE PO SCH (18:05)
[2016-04-14] MEDS: MAGNESIUM OXIDE PO SCH (18:05)
[2016-04-14] MEDS: OMEGA FISH OIL PO SCH (18:05)
[2016-04-15] MEDS: Betamethasone Dipropionate/Clotrimazole 0.05-1% Crm 15 GM Tube TOP SCH (00:08)
[2016-04-15] MEDS: LEVOTHYROXINE 75 MCG PO SCH (06:26)
[2016-04-15] MEDS: UBIDECARENONE 100 MG PO SCH ×2 (09:35→18:10)
[2016-04-15] MEDS: CHOLECALCIFEROL 5000 UNIT PO SCH (09:35)
[2016-04-15] MEDS: Acetaminophen 650 MG Tab.ER PO PRN ×2 (09:36→18:12)
[2016-04-15] MEDS: DABIGATRAN 150 MG PO SCH ×2 (09:36→18:11)
[2016-04-15] MEDS: [UNRECOGNIZED DRUG - OTHER] PO SCH (18:09)
[2016-04-15] MEDS: OMEGA FISH OIL PO SCH (18:09)
[2016-04-15] MEDS: MAGNESIUM OXIDE PO SCH (18:09)
[2016-04-15] MEDS: ZINC GLUCONATE PO SCH (18:09)
[2016-04-15] MEDS: CALCIUM CARBONATE PO SCH (18:09)
[2016-04-16] MEDS: LEVOTHYROXINE 75 MCG PO SCH (06:17)
[2016-04-16] MEDS: DABIGATRAN 150 MG PO SCH ×2 (09:01→20:00)
[2016-04-16] MEDS: Acetaminophen 650 MG Tab.ER PO PRN (09:01)
[2016-04-16] MEDS: UBIDECARENONE 100 MG PO SCH ×2 (09:01→19:58)
[2016-04-16] MEDS: CHOLECALCIFEROL 5000 UNIT PO SCH (09:01)
[2016-04-16] MEDS: [UNRECOGNIZED DRUG - OTHER] PO SCH (19:59)
[2016-04-16] MEDS: OMEGA FISH OIL PO SCH (19:59)
[2016-04-16] MEDS: ZINC GLUCONATE PO SCH (19:59)
[2016-04-16] MEDS: CALCIUM CARBONATE PO SCH (19:59)
[2016-04-16] MEDS: MAGNESIUM OXIDE PO SCH (19:59)
[2016-04-16] MEDS: Betamethasone Dipropionate/Clotrimazole 0.05-1% Crm 15 GM Tube TOP SCH (20:01)
[2016-04-17] MEDS: Betamethasone Dipropionate/Clotrimazole 0.05-1% Crm 15 GM Tube TOP SCH (00:09)
[2016-04-17] MEDS: LEVOTHYROXINE 75 MCG PO SCH (06:09)
[2016-04-17] MEDS: UBIDECARENONE 100 MG PO SCH ×2 (10:46→18:02)
[2016-04-17] MEDS: DABIGATRAN 150 MG PO SCH ×2 (10:47→18:03)
[2016-04-17] MEDS: CHOLECALCIFEROL 5000 UNIT PO SCH (10:47)
[2016-04-17] MEDS: Acetaminophen 650 MG Tab.ER PO PRN (10:48)
[2016-04-17] MEDS: [UNRECOGNIZED DRUG - OTHER] TOP SCH (10:50)
[2016-04-17] MEDS: CONJUGATED ESTROGENS TOP SCH (10:50)
[2016-04-17] MEDS: CALCIUM CARBONATE PO SCH (18:02)
[2016-04-17] MEDS: OMEGA FISH OIL PO SCH (18:02)
[2016-04-17] MEDS: MAGNESIUM OXIDE PO SCH (18:02)
[2016-04-17] MEDS: ZINC GLUCONATE PO SCH (18:02)
[2016-04-17] MEDS: [UNRECOGNIZED DRUG - OTHER] PO SCH (18:02)
[2016-04-18] MEDS: LEVOTHYROXINE 75 MCG PO SCH (05:59)
[2016-04-18] MEDS: Acetaminophen 650 MG Tab.ER PO PRN (09:22)
[2016-04-18] MEDS: UBIDECARENONE 100 MG PO SCH ×2 (09:22→18:14)
[2016-04-18] MEDS: CHOLECALCIFEROL 5000 UNIT PO SCH (09:22)
[2016-04-18] MEDS: DABIGATRAN 150 MG PO SCH ×2 (09:22→18:13)
[2016-04-18] MEDS: MAGNESIUM OXIDE PO SCH (18:14)
[2016-04-18] MEDS: ZINC GLUCONATE PO SCH (18:14)
[2016-04-18] MEDS: CALCIUM CARBONATE PO SCH (18:14)
[2016-04-18] MEDS: OMEGA FISH OIL PO SCH (18:14)
[2016-04-18] MEDS: [UNRECOGNIZED DRUG - OTHER] PO SCH (18:15)
[2016-04-18] MEDS: Betamethasone Dipropionate/Clotrimazole 0.05-1% Crm 15 GM Tube TOP SCH (23:10)
[2016-04-19] MEDS: DABIGATRAN 150 MG PO SCH ×2 (09:26→18:12)
[2016-04-19] MEDS: Acetaminophen 650 MG Tab.ER PO PRN (09:27)
[2016-04-19] MEDS: UBIDECARENONE 100 MG PO SCH ×2 (09:27→18:12)
[2016-04-19] MEDS: CHOLECALCIFEROL 5000 UNIT PO SCH (09:27)
[2016-04-19] MEDS: ZINC GLUCONATE PO SCH (18:12)
[2016-04-19] MEDS: OMEGA FISH OIL PO SCH (18:12)
[2016-04-19] MEDS: CALCIUM CARBONATE PO SCH (18:12)
[2016-04-19] MEDS: [UNRECOGNIZED DRUG - OTHER] PO SCH (18:12)
[2016-04-19] MEDS: MAGNESIUM OXIDE PO SCH (18:12)
[2016-04-19] MEDS: Betamethasone Dipropionate/Clotrimazole 0.05-1% Crm 15 GM Tube TOP SCH (22:45)
[2016-04-20] MEDS: LEVOTHYROXINE 75 MCG PO SCH (06:11)
[2016-04-20] MEDS: CONJUGATED ESTROGENS TOP SCH (10:29)
[2016-04-20] MEDS: [UNRECOGNIZED DRUG - OTHER] TOP SCH (10:29)
[2016-04-20] MEDS: Acetaminophen 650 MG Tab.ER PO PRN (10:38)
[2016-04-20] MEDS: CHOLECALCIFEROL 5000 UNIT PO SCH (10:39)
[2016-04-20] MEDS: DABIGATRAN 150 MG PO SCH ×2 (10:39→17:59)
[2016-04-20] MEDS: UBIDECARENONE 100 MG PO SCH ×2 (10:39→17:59)
[2016-04-20] MEDS: [UNRECOGNIZED DRUG - OTHER] PO SCH (17:59)
[2016-04-20] MEDS: ZINC GLUCONATE PO SCH (18:00)
[2016-04-20] MEDS: OMEGA FISH OIL PO SCH (18:00)
[2016-04-20] MEDS: CALCIUM CARBONATE PO SCH (18:00)
[2016-04-20] MEDS: MAGNESIUM OXIDE PO SCH (18:00)
[2016-04-21] MEDS: LEVOTHYROXINE 75 MCG PO SCH (06:19)
[2016-04-21] MEDS: DABIGATRAN 150 MG PO SCH ×2 (10:35→18:03)
[2016-04-21] MEDS: CHOLECALCIFEROL 5000 UNIT PO SCH (10:35)
[2016-04-21] MEDS: UBIDECARENONE 100 MG PO SCH ×2 (10:35→18:04)
[2016-04-21] MEDS: Acetaminophen 650 MG Tab.ER PO PRN (10:36)
[2016-04-21] MEDS: MAGNESIUM OXIDE PO SCH (18:03)
[2016-04-21] MEDS: [UNRECOGNIZED DRUG - OTHER] PO SCH (18:03)
[2016-04-21] MEDS: ZINC GLUCONATE PO SCH (18:03)
[2016-04-21] MEDS: CALCIUM CARBONATE PO SCH (18:03)
[2016-04-21] MEDS: OMEGA FISH OIL PO SCH (18:04)
[2016-04-21] MEDS: Betamethasone Dipropionate/Clotrimazole 0.05-1% Crm 15 GM Tube TOP SCH (23:02)
[2016-04-22] MEDS: LEVOTHYROXINE 75 MCG PO SCH (06:14)
[2016-04-22] MEDS: CHOLECALCIFEROL 5000 UNIT PO SCH (11:08)
[2016-04-22] MEDS: DABIGATRAN 150 MG PO SCH ×2 (11:09→18:24)
[2016-04-22] MEDS: UBIDECARENONE 100 MG PO SCH ×2 (11:10→18:25)
[2016-04-22] MEDS: Acetaminophen 650 MG Tab.ER PO PRN (11:11)
[2016-04-22] MEDS: OMEGA FISH OIL PO SCH (18:25)
[2016-04-22] MEDS: ZINC GLUCONATE PO SCH (18:25)
[2016-04-22] MEDS: [UNRECOGNIZED DRUG - OTHER] PO SCH (18:25)
[2016-04-22] MEDS: MAGNESIUM OXIDE PO SCH (18:25)
[2016-04-22] MEDS: CALCIUM CARBONATE PO SCH (18:25)
[2016-04-23] MEDS: LEVOTHYROXINE 75 MCG PO SCH (06:22)
[2016-04-23] MEDS: Acetaminophen 650 MG Tab.ER PO PRN (10:14)
[2016-04-23] MEDS: DABIGATRAN 150 MG PO SCH ×2 (10:14→18:39)
[2016-04-23] MEDS: CHOLECALCIFEROL 5000 UNIT PO SCH (10:14)
[2016-04-23] MEDS: UBIDECARENONE 100 MG PO SCH ×2 (10:14→18:40)
[2016-04-23] MEDS: CONJUGATED ESTROGENS TOP SCH (10:15)
[2016-04-23] MEDS: [UNRECOGNIZED DRUG - OTHER] TOP SCH (10:15)
[2016-04-23] MEDS: MAGNESIUM OXIDE PO SCH (18:39)
[2016-04-23] MEDS: OMEGA FISH OIL PO SCH (18:39)
[2016-04-23] MEDS: ZINC GLUCONATE PO SCH (18:39)
[2016-04-23] MEDS: CALCIUM CARBONATE PO SCH (18:39)
[2016-04-23] MEDS: [UNRECOGNIZED DRUG - OTHER] PO SCH (18:40)
[2016-04-23] MEDS: Betamethasone Dipropionate/Clotrimazole 0.05-1% Crm 15 GM Tube TOP SCH (21:35)
[2016-04-24] MEDS: LEVOTHYROXINE 75 MCG PO SCH (06:30)
[2016-04-24] MEDS: Acetaminophen 650 MG Tab.ER PO PRN (09:52)
[2016-04-24] MEDS: UBIDECARENONE 100 MG PO SCH ×2 (09:52→18:04)
[2016-04-24] MEDS: CHOLECALCIFEROL 5000 UNIT PO SCH (09:52)
[2016-04-24] MEDS: DABIGATRAN 150 MG PO SCH ×2 (09:52→18:03)
[2016-04-24] MEDS: MAGNESIUM OXIDE PO SCH (18:03)
[2016-04-24] MEDS: OMEGA FISH OIL PO SCH (18:03)
[2016-04-24] MEDS: [UNRECOGNIZED DRUG - OTHER] PO SCH (18:03)
[2016-04-24] MEDS: CALCIUM CARBONATE PO SCH (18:03)
[2016-04-24] MEDS: ZINC GLUCONATE PO SCH (18:03)
[2016-04-25] MEDS: LEVOTHYROXINE 75 MCG PO SCH (06:13)
[2016-04-25] MEDS: DABIGATRAN 150 MG PO SCH ×2 (09:19→18:07)
[2016-04-25] MEDS: UBIDECARENONE 100 MG PO SCH ×2 (09:19→18:07)
[2016-04-25] MEDS: CHOLECALCIFEROL 5000 UNIT PO SCH (09:19)
[2016-04-25] MEDS: Acetaminophen 650 MG Tab.ER PO PRN (09:20)
[2016-04-25] MEDS: CALCIUM CARBONATE PO SCH (18:06)
[2016-04-25] MEDS: MAGNESIUM OXIDE PO SCH (18:06)
[2016-04-25] MEDS: ZINC GLUCONATE PO SCH (18:06)
[2016-04-25] MEDS: [UNRECOGNIZED DRUG - OTHER] PO SCH (18:07)
[2016-04-25] MEDS: OMEGA FISH OIL PO SCH (18:07)
[2016-04-25] MEDS: Betamethasone Dipropionate/Clotrimazole 0.05-1% Crm 15 GM Tube TOP SCH (23:23)
[2016-04-26] MEDS: DABIGATRAN 150 MG PO SCH ×2 (10:10→18:13)
[2016-04-26] MEDS: UBIDECARENONE 100 MG PO SCH ×2 (10:10→18:13)
[2016-04-26] MEDS: CHOLECALCIFEROL 5000 UNIT PO SCH (10:10)
[2016-04-26] MEDS: Acetaminophen 650 MG Tab.ER PO PRN (10:11)
[2016-04-26] MEDS: [UNRECOGNIZED DRUG - OTHER] TOP SCH (10:13)
[2016-04-26] MEDS: CONJUGATED ESTROGENS TOP SCH (10:13)
[2016-04-26] MEDS: [UNRECOGNIZED DRUG - OTHER] PO SCH (18:12)
[2016-04-26] MEDS: MAGNESIUM OXIDE PO SCH (18:13)
[2016-04-26] MEDS: CALCIUM CARBONATE PO SCH (18:13)
[2016-04-26] MEDS: ZINC GLUCONATE PO SCH (18:13)
[2016-04-26] MEDS: OMEGA FISH OIL PO SCH (18:13)
[2016-04-27] MEDS: LEVOTHYROXINE 75 MCG PO SCH (06:49)
[2016-04-27] MEDS: UBIDECARENONE 100 MG PO SCH ×3 (08:44→18:31)
[2016-04-27] MEDS: CHOLECALCIFEROL 5000 UNIT PO SCH ×2 (08:45→10:22)
[2016-04-27] MEDS: DABIGATRAN 150 MG PO SCH ×3 (08:45→18:31)
[2016-04-27] MEDS: Acetaminophen 650 MG Tab.ER PO PRN (08:46)
[2016-04-27] MEDS: [UNRECOGNIZED DRUG - OTHER] PO SCH (18:30)
[2016-04-27] MEDS: CALCIUM CARBONATE PO SCH (18:30)
[2016-04-27] MEDS: MAGNESIUM OXIDE PO SCH (18:30)
[2016-04-27] MEDS: OMEGA FISH OIL PO SCH (18:30)
[2016-04-27] MEDS: ZINC GLUCONATE PO SCH (18:30)
[2016-04-28] MEDS: DABIGATRAN 150 MG PO SCH ×2 (09:17→20:16)
[2016-04-28] MEDS: UBIDECARENONE 100 MG PO SCH ×2 (09:17→20:18)
[2016-04-28] MEDS: CHOLECALCIFEROL 5000 UNIT PO SCH (09:17)
[2016-04-28] MEDS: LEVOTHYROXINE 75 MCG PO SCH (09:17)
[2016-04-28] MEDS: Acetaminophen 650 MG Tab.ER PO PRN (09:18)
[2016-04-28] MEDS: CALCIUM CARBONATE PO SCH (20:16)
[2016-04-28] MEDS: MAGNESIUM OXIDE PO SCH (20:16)
[2016-04-28] MEDS: ZINC GLUCONATE PO SCH (20:16)
[2016-04-28] MEDS: OMEGA FISH OIL PO SCH (20:17)
[2016-04-28] MEDS: [UNRECOGNIZED DRUG - OTHER] PO SCH (20:18)
[2016-04-28] MEDS: Betamethasone Dipropionate/Clotrimazole 0.05-1% Crm 15 GM Tube TOP SCH (23:02)
[2016-04-29] MEDS: LEVOTHYROXINE 75 MCG PO SCH (06:32)
[2016-04-29] MEDS: UBIDECARENONE 100 MG PO SCH ×2 (09:16→18:25)
[2016-04-29] MEDS: DABIGATRAN 150 MG PO SCH ×2 (09:16→18:23)
[2016-04-29] MEDS: CHOLECALCIFEROL 5000 UNIT PO SCH (09:17)
[2016-04-29] MEDS: Acetaminophen 650 MG Tab.ER PO PRN (09:18)
[2016-04-29] MEDS: [UNRECOGNIZED DRUG - OTHER] TOP SCH (09:19)
[2016-04-29] MEDS: CONJUGATED ESTROGENS TOP SCH (09:19)
[2016-04-29] MEDS: CALCIUM CARBONATE PO SCH (18:24)
[2016-04-29] MEDS: MAGNESIUM OXIDE PO SCH (18:24)
[2016-04-29] MEDS: ZINC GLUCONATE PO SCH (18:24)
[2016-04-29] MEDS: OMEGA FISH OIL PO SCH (18:24)
[2016-04-29] MEDS: [UNRECOGNIZED DRUG - OTHER] PO SCH (18:24)
[2016-04-30] MEDS: LEVOTHYROXINE 75 MCG PO SCH (06:23)
[2016-04-30] MEDS: DABIGATRAN 150 MG PO SCH ×2 (09:42→18:20)
[2016-04-30] MEDS: UBIDECARENONE 100 MG PO SCH ×2 (09:43→18:21)
[2016-04-30] MEDS: CHOLECALCIFEROL 5000 UNIT PO SCH (09:43)
[2016-04-30] MEDS: Acetaminophen 650 MG Tab.ER PO PRN (09:44)
[2016-04-30] MEDS: OMEGA FISH OIL PO SCH (18:21)
[2016-04-30] MEDS: ZINC GLUCONATE PO SCH (18:21)
[2016-04-30] MEDS: CALCIUM CARBONATE PO SCH (18:21)
[2016-04-30] MEDS: MAGNESIUM OXIDE PO SCH (18:21)
[2016-04-30] MEDS: [UNRECOGNIZED DRUG - OTHER] PO SCH (18:21)
[2016-05-01] MEDS: Betamethasone Dipropionate/Clotrimazole 0.05-1% Crm 15 GM Tube TOP SCH (01:30)
[2016-05-01] MEDS: LEVOTHYROXINE 75 MCG PO SCH (06:50)
[2016-05-01] MEDS: CHOLECALCIFEROL 5000 UNIT PO SCH (10:35)
[2016-05-01] MEDS: UBIDECARENONE 100 MG PO SCH ×2 (10:36→18:10)
[2016-05-01] MEDS: DABIGATRAN 150 MG PO SCH ×2 (10:36→18:10)
[2016-05-01] MEDS: Acetaminophen 650 MG Tab.ER PO PRN (10:37)
[2016-05-01] MEDS: ZINC GLUCONATE PO SCH (18:10)
[2016-05-01] MEDS: CALCIUM CARBONATE PO SCH (18:10)
[2016-05-01] MEDS: MAGNESIUM OXIDE PO SCH (18:10)
[2016-05-01] MEDS: OMEGA FISH OIL PO SCH (18:10)
[2016-05-01] MEDS: [UNRECOGNIZED DRUG - OTHER] PO SCH (18:10)
[2016-05-02] MEDS: LEVOTHYROXINE 75 MCG PO SCH (06:16)
[2016-05-02] MEDS: [UNRECOGNIZED DRUG - OTHER] TOP SCH (09:48)
[2016-05-02] MEDS: CONJUGATED ESTROGENS TOP SCH (09:48)
[2016-05-02] MEDS: CLOBETASOL 0.05% TOP PRN (09:49)
[2016-05-02] MEDS: Acetaminophen 650 MG Tab.ER PO PRN (09:49)
[2016-05-02] MEDS: DABIGATRAN 150 MG PO SCH ×2 (09:50→18:02)
[2016-05-02] MEDS: CHOLECALCIFEROL 5000 UNIT PO SCH (09:50)
[2016-05-02] MEDS: UBIDECARENONE 100 MG PO SCH ×2 (09:50→18:03)
[2016-05-02] MEDS: OMEGA FISH OIL PO SCH (18:02)
[2016-05-02] MEDS: ZINC GLUCONATE PO SCH (18:03)
[2016-05-02] MEDS: MAGNESIUM OXIDE PO SCH (18:03)
[2016-05-02] MEDS: CALCIUM CARBONATE PO SCH (18:03)
[2016-05-02] MEDS: [UNRECOGNIZED DRUG - OTHER] PO SCH (18:03)
[2016-05-02] MEDS: Betamethasone Dipropionate/Clotrimazole 0.05-1% Crm 15 GM Tube TOP SCH (22:26)
[2016-05-03] MEDS: CLOBETASOL 0.05% TOP PRN (08:05)
[2016-05-03] MEDS: DABIGATRAN 150 MG PO SCH ×3 (08:08→20:23)
[2016-05-03] MEDS: Acetaminophen 650 MG Tab.ER PO PRN (08:09)
[2016-05-03] MEDS: CHOLECALCIFEROL 5000 UNIT PO SCH ×2 (08:09→09:35)
[2016-05-03] MEDS: UBIDECARENONE 100 MG PO SCH ×3 (08:09→20:23)
[2016-05-03] MEDS: [UNRECOGNIZED DRUG - OTHER] PO SCH (20:23)
[2016-05-03] MEDS: MAGNESIUM OXIDE PO SCH (20:23)
[2016-05-03] MEDS: CALCIUM CARBONATE PO SCH (20:23)
[2016-05-03] MEDS: OMEGA FISH OIL PO SCH (20:23)
[2016-05-03] MEDS: ZINC GLUCONATE PO SCH (20:23)
[2016-05-04] MEDS: LEVOTHYROXINE 75 MCG PO SCH (06:24)
[2016-05-04] MEDS: DABIGATRAN 150 MG PO SCH ×2 (09:47→18:08)
[2016-05-04] MEDS: CHOLECALCIFEROL 5000 UNIT PO SCH (09:48)
[2016-05-04] MEDS: UBIDECARENONE 100 MG PO SCH ×2 (09:49→18:09)
[2016-05-04] MEDS: Acetaminophen 650 MG Tab.ER PO PRN (09:49)
[2016-05-04] MEDS: CLOBETASOL 0.05% TOP PRN (10:04)
[2016-05-04] MEDS: ZINC GLUCONATE PO SCH (18:09)
[2016-05-04] MEDS: [UNRECOGNIZED DRUG - OTHER] PO SCH (18:09)
[2016-05-04] MEDS: CALCIUM CARBONATE PO SCH (18:09)
[2016-05-04] MEDS: OMEGA FISH OIL PO SCH (18:09)
[2016-05-04] MEDS: MAGNESIUM OXIDE PO SCH (18:09)
[2016-05-05] MEDS: LEVOTHYROXINE 75 MCG PO SCH (06:10)
[2016-05-05] MEDS: DABIGATRAN 150 MG PO SCH ×2 (09:09→18:37)
[2016-05-05] MEDS: CHOLECALCIFEROL 5000 UNIT PO SCH (09:10)
[2016-05-05] MEDS: UBIDECARENONE 100 MG PO SCH ×2 (09:11→18:38)
[2016-05-05] MEDS: CONJUGATED ESTROGENS TOP SCH (09:12)
[2016-05-05] MEDS: Acetaminophen 650 MG Tab.ER PO PRN (09:12)
[2016-05-05] MEDS: [UNRECOGNIZED DRUG - OTHER] TOP SCH (09:12)
[2016-05-05] MEDS: ZINC GLUCONATE PO SCH (18:38)
[2016-05-05] MEDS: CALCIUM CARBONATE PO SCH (18:38)
[2016-05-05] MEDS: [UNRECOGNIZED DRUG - OTHER] PO SCH (18:38)
[2016-05-05] MEDS: MAGNESIUM OXIDE PO SCH (18:38)
[2016-05-05] MEDS: OMEGA FISH OIL PO SCH (18:39)
[2016-05-05] MEDS: Betamethasone Dipropionate/Clotrimazole 0.05-1% Crm 15 GM Tube TOP SCH (22:48)
[2016-05-06] MEDS: LEVOTHYROXINE 75 MCG PO SCH (06:12)
[2016-05-06] MEDS: CHOLECALCIFEROL 5000 UNIT PO SCH (09:42)
[2016-05-06] MEDS: DABIGATRAN 150 MG PO SCH ×2 (09:42→18:06)
[2016-05-06] MEDS: UBIDECARENONE 100 MG PO SCH ×2 (09:43→18:06)
[2016-05-06] MEDS: ZINC GLUCONATE PO SCH (18:07)
[2016-05-06] MEDS: MAGNESIUM OXIDE PO SCH (18:07)
[2016-05-06] MEDS: CALCIUM CARBONATE PO SCH (18:07)
[2016-05-06] MEDS: [UNRECOGNIZED DRUG - OTHER] PO SCH (18:07)
[2016-05-06] MEDS: OMEGA FISH OIL PO SCH (18:07)
[2016-05-07] MEDS: LEVOTHYROXINE 75 MCG PO SCH (06:21)
[2016-05-07] MEDS: DABIGATRAN 150 MG PO SCH ×2 (10:43→20:44)
[2016-05-07] MEDS: CHOLECALCIFEROL 5000 UNIT PO SCH (10:44)
[2016-05-07] MEDS: UBIDECARENONE 100 MG PO SCH ×2 (10:45→20:44)
[2016-05-07] MEDS: Acetaminophen 650 MG Tab.ER PO PRN (10:45)
[2016-05-07] MEDS: CALCIUM CARBONATE PO SCH (20:43)
[2016-05-07] MEDS: [UNRECOGNIZED DRUG - OTHER] PO SCH (20:43)
[2016-05-07] MEDS: MAGNESIUM OXIDE PO SCH (20:43)
[2016-05-07] MEDS: ZINC GLUCONATE PO SCH (20:43)
[2016-05-07] MEDS: OMEGA FISH OIL PO SCH (20:44)
[2016-05-08] MEDS: Betamethasone Dipropionate/Clotrimazole 0.05-1% Crm 15 GM Tube TOP SCH (03:48)
[2016-05-08] MEDS: LEVOTHYROXINE 75 MCG PO SCH (06:19)
[2016-05-08] MEDS: CHOLECALCIFEROL 5000 UNIT PO SCH (09:29)
[2016-05-08] MEDS: DABIGATRAN 150 MG PO SCH ×2 (09:29→18:06)
[2016-05-08] MEDS: UBIDECARENONE 100 MG PO SCH ×2 (09:29→18:07)
[2016-05-08] MEDS: CONJUGATED ESTROGENS TOP SCH (09:30)
[2016-05-08] MEDS: Acetaminophen 650 MG Tab.ER PO PRN (09:30)
[2016-05-08] MEDS: [UNRECOGNIZED DRUG - OTHER] TOP SCH (09:30)
[2016-05-08] MEDS: OMEGA FISH OIL PO SCH (18:04)
[2016-05-08] MEDS: CALCIUM CARBONATE PO SCH (18:05)
[2016-05-08] MEDS: ZINC GLUCONATE PO SCH (18:05)
[2016-05-08] MEDS: [UNRECOGNIZED DRUG - OTHER] PO SCH (18:05)
[2016-05-08] MEDS: MAGNESIUM OXIDE PO SCH (18:05)
[2016-05-09] MEDS: LEVOTHYROXINE 75 MCG PO SCH (06:26)
[2016-05-09] MEDS: CHOLECALCIFEROL 5000 UNIT PO SCH (09:25)
[2016-05-09] MEDS: DABIGATRAN 150 MG PO SCH ×3 (09:25→18:03)
[2016-05-09] MEDS: UBIDECARENONE 100 MG PO SCH ×3 (09:25→18:04)
[2016-05-09] MEDS: Acetaminophen 650 MG Tab.ER PO PRN (09:26)
--- NOTE | 2016-05-09 13:14 | PN ---
Progress Note for EMILY SHEETS Date: 04/13/2016 Room #: VM.207 This is a progress note for the patient, who I did see for swing bed rounds on 04/13/2016, but apparently no dictation has been typed up or done. SUBJECTIVE: The patient is an 86-year-old on long-term swing bed due to arthralgias requiring assistance with daily activities like getting dressed. She has no concerns of pain. Her bottom is feeling better. OBJECTIVELY: Vital Signs: Her vitals on that date were, temperature 97.6, pulse 62, blood pressure 119/62, respiratory rate 20, and O2 of 92% on room air. General: She was in no acute distress. Heart: Irregularly irregular. Lungs: Sounds were clear to auscultation bilaterally without crackles or wheezes. Extremities: Warm and dry with no edema. ASSESSMENT: 1. Atrial fibrillation with previous transient ischemic attack, on Pradaxa. 2. Mild thrombocytopenia. 3. Severe osteoarthritis. 4. Hypothyroidism. 5. Essential hypertension, controlled. 6. Atrophic vaginitis, doing well. PLAN: At this point, we will recertify her in 1 month to continue with swing bed cares. I have lab work ordered for [facility]. MKA: 05/09/2016 12:49:35 MODL: 05/09/2016 13:04:14 /[id number]
[2016-05-09] MEDS: ZINC GLUCONATE PO SCH ×2 (17:32→18:03)
[2016-05-09] MEDS: CALCIUM CARBONATE PO SCH ×2 (17:32→18:03)
[2016-05-09] MEDS: MAGNESIUM OXIDE PO SCH ×2 (17:32→18:03)
[2016-05-09] MEDS: [UNRECOGNIZED DRUG - OTHER] PO SCH ×2 (17:34→18:04)
[2016-05-09] MEDS: OMEGA FISH OIL PO SCH ×2 (17:34→18:04)
[2016-05-09] MEDS: Betamethasone Dipropionate/Clotrimazole 0.05-1% Crm 15 GM Tube TOP SCH (23:15)
[2016-05-10] MEDS: Acetaminophen 650 MG Tab.ER PO PRN (09:34)
[2016-05-10] MEDS: DABIGATRAN 150 MG PO SCH ×2 (09:34→18:12)
[2016-05-10] MEDS: UBIDECARENONE 100 MG PO SCH ×2 (09:35→18:13)
[2016-05-10] MEDS: CHOLECALCIFEROL 5000 UNIT PO SCH (09:35)
[2016-05-10] MEDS: [UNRECOGNIZED DRUG - OTHER] PO SCH (18:12)
[2016-05-10] MEDS: ZINC GLUCONATE PO SCH (18:13)
[2016-05-10] MEDS: OMEGA FISH OIL PO SCH (18:13)
[2016-05-10] MEDS: CALCIUM CARBONATE PO SCH (18:13)
[2016-05-10] MEDS: MAGNESIUM OXIDE PO SCH (18:13)
[2016-05-11] MEDS: LEVOTHYROXINE 75 MCG PO SCH (06:10)
[2016-05-11] MEDS: UBIDECARENONE 100 MG PO SCH ×2 (09:27→18:05)
[2016-05-11] MEDS: CHOLECALCIFEROL 5000 UNIT PO SCH (09:27)
[2016-05-11] MEDS: DABIGATRAN 150 MG PO SCH ×2 (09:28→18:04)
[2016-05-11] MEDS: Acetaminophen 650 MG Tab.ER PO PRN (09:28)
[2016-05-11] MEDS: [UNRECOGNIZED DRUG - OTHER] TOP SCH (09:29)
[2016-05-11] MEDS: CONJUGATED ESTROGENS TOP SCH (09:29)
[2016-05-11] MEDS: CALCIUM CARBONATE PO SCH (18:05)
[2016-05-11] MEDS: ZINC GLUCONATE PO SCH (18:05)
[2016-05-11] MEDS: OMEGA FISH OIL PO SCH (18:05)
[2016-05-11] MEDS: MAGNESIUM OXIDE PO SCH (18:05)
[2016-05-11] MEDS: [UNRECOGNIZED DRUG - OTHER] PO SCH (18:05)
[2016-05-12] MEDS: LEVOTHYROXINE 75 MCG PO SCH (06:06)
[2016-05-12] MEDS: DABIGATRAN 150 MG PO SCH ×2 (10:44→18:40)
[2016-05-12] MEDS: UBIDECARENONE 100 MG PO SCH ×2 (10:45→18:40)
[2016-05-12] MEDS: CHOLECALCIFEROL 5000 UNIT PO SCH (10:45)
[2016-05-12] MEDS: Acetaminophen 650 MG Tab.ER PO PRN (10:45)
--- NOTE | 2016-05-12 11:37 | PN ---
Progress Note for EMILY SHEETS Date: 05/11/2016 Room #: VM.207 SUBJECTIVE: This is a swing bed progress note on an 86-year-old on long-term swing bed due to impaired mobility due to osteoarthritis. The patient's moods have been quite good. She is watching golf today. She has no further bladder or vaginal concerns. She has not had any chest pain or trouble breathing. OBJECTIVE: Vital Signs: Her temperature is 97.9, pulse 74, blood pressure 127/53, respiratory rate 20, and O2 of 95% on room air. General: She is in no acute distress. Heart: Irregularly irregular. Respiratory: Lungs sounds are clear to auscultation bilaterally without crackles or wheezes. Extremities: Warm and dry. No edema. ASSESSMENT: 1. Atrial fibrillation with previous transient ischemic attack, on Pradaxa. 2. Mild thrombocytopenia. 3. Severe osteoarthritis. 4. Hypothyroidism. 5. Essential hypertension. 6. History of atrophic vaginitis, doing well. PLAN: At this point, the patient will continue with non-skilled swing bed cares, long-term swing bed. She is doing quite well. We have lab work plan for [facility]. MKA: 05/11/2016 16:09:14 MODL: 05/11/2016 16:30:59 /[id number]
[2016-05-12] MEDS: [UNRECOGNIZED DRUG - OTHER] PO SCH (18:40)
[2016-05-12] MEDS: ZINC GLUCONATE PO SCH (18:40)
[2016-05-12] MEDS: CALCIUM CARBONATE PO SCH (18:40)
[2016-05-12] MEDS: MAGNESIUM OXIDE PO SCH (18:40)
[2016-05-12] MEDS: OMEGA FISH OIL PO SCH (18:40)
[2016-05-12] MEDS: Betamethasone Dipropionate/Clotrimazole 0.05-1% Crm 15 GM Tube TOP SCH (23:49)
[2016-05-13] MEDS: LEVOTHYROXINE 75 MCG PO SCH (06:02)
[2016-05-13] MEDS: Acetaminophen 650 MG Tab.ER PO PRN (10:58)
[2016-05-13] MEDS: UBIDECARENONE 100 MG PO SCH ×2 (10:59→18:40)
[2016-05-13] MEDS: CHOLECALCIFEROL 5000 UNIT PO SCH (10:59)
[2016-05-13] MEDS: DABIGATRAN 150 MG PO SCH ×2 (10:59→18:39)
[2016-05-13] MEDS: [UNRECOGNIZED DRUG - OTHER] PO SCH (18:40)
[2016-05-13] MEDS: CALCIUM CARBONATE PO SCH (18:40)
[2016-05-13] MEDS: ZINC GLUCONATE PO SCH (18:40)
[2016-05-13] MEDS: MAGNESIUM OXIDE PO SCH (18:40)
[2016-05-13] MEDS: OMEGA FISH OIL PO SCH (18:40)
[2016-05-13] MEDS: CLOBETASOL 0.05% TOP PRN (22:18)
[2016-05-14] MEDS: LEVOTHYROXINE 75 MCG PO SCH (06:16)
[2016-05-14] MEDS: Acetaminophen 650 MG Tab.ER PO PRN (09:40)
[2016-05-14] MEDS: [UNRECOGNIZED DRUG - OTHER] TOP SCH (09:41)
[2016-05-14] MEDS: CONJUGATED ESTROGENS TOP SCH (09:41)
[2016-05-14] MEDS: UBIDECARENONE 100 MG PO SCH ×2 (09:41→18:25)
[2016-05-14] MEDS: DABIGATRAN 150 MG PO SCH ×2 (09:41→18:26)
[2016-05-14] MEDS: CHOLECALCIFEROL 5000 UNIT PO SCH (09:41)
[2016-05-14] MEDS: OMEGA FISH OIL PO SCH (18:25)
[2016-05-14] MEDS: [UNRECOGNIZED DRUG - OTHER] PO SCH (18:25)
[2016-05-14] MEDS: CALCIUM CARBONATE PO SCH (18:27)
[2016-05-14] MEDS: ZINC GLUCONATE PO SCH (18:27)
[2016-05-14] MEDS: MAGNESIUM OXIDE PO SCH (18:27)
[2016-05-14] MEDS: Betamethasone Dipropionate/Clotrimazole 0.05-1% Crm 15 GM Tube TOP SCH (23:20)
[2016-05-15] MEDS: LEVOTHYROXINE 75 MCG PO SCH (06:31)
[2016-05-15] MEDS: Acetaminophen 650 MG Tab.ER PO PRN (09:38)
[2016-05-15] MEDS: UBIDECARENONE 100 MG PO SCH ×2 (09:39→17:59)
[2016-05-15] MEDS: CHOLECALCIFEROL 5000 UNIT PO SCH (09:39)
[2016-05-15] MEDS: DABIGATRAN 150 MG PO SCH ×2 (09:39→17:59)
[2016-05-15] MEDS: ZINC GLUCONATE PO SCH (17:59)
[2016-05-15] MEDS: [UNRECOGNIZED DRUG - OTHER] PO SCH (17:59)
[2016-05-15] MEDS: OMEGA FISH OIL PO SCH (17:59)
[2016-05-15] MEDS: CALCIUM CARBONATE PO SCH (17:59)
[2016-05-15] MEDS: MAGNESIUM OXIDE PO SCH (17:59)
[2016-05-16] MEDS: LEVOTHYROXINE 75 MCG PO SCH (06:09)
[2016-05-16] MEDS: CHOLECALCIFEROL 5000 UNIT PO SCH (09:53)
[2016-05-16] MEDS: UBIDECARENONE 100 MG PO SCH ×2 (09:54→21:01)
[2016-05-16] MEDS: DABIGATRAN 150 MG PO SCH ×2 (09:57→21:01)
[2016-05-16] MEDS: Acetaminophen 650 MG Tab.ER PO PRN (09:58)
[2016-05-16] MEDS: Betamethasone Dipropionate/Clotrimazole 0.05-1% Crm 15 GM Tube TOP SCH (21:00)
[2016-05-16] MEDS: [UNRECOGNIZED DRUG - OTHER] PO SCH (21:01)
[2016-05-16] MEDS: ZINC GLUCONATE PO SCH (21:01)
[2016-05-16] MEDS: CALCIUM CARBONATE PO SCH (21:01)
[2016-05-16] MEDS: MAGNESIUM OXIDE PO SCH (21:01)
[2016-05-16] MEDS: OMEGA FISH OIL PO SCH (21:01)
[2016-05-17] MEDS: CONJUGATED ESTROGENS TOP SCH (10:01)
[2016-05-17] MEDS: [UNRECOGNIZED DRUG - OTHER] TOP SCH (10:01)
[2016-05-17] MEDS: CHOLECALCIFEROL 5000 UNIT PO SCH (10:06)
[2016-05-17] MEDS: DABIGATRAN 150 MG PO SCH ×2 (10:06→18:05)
[2016-05-17] MEDS: UBIDECARENONE 100 MG PO SCH ×2 (10:08→18:06)
[2016-05-17] MEDS: Acetaminophen 650 MG Tab.ER PO PRN (10:11)
[2016-05-17] MEDS: MAGNESIUM OXIDE PO SCH (18:05)
[2016-05-17] MEDS: ZINC GLUCONATE PO SCH (18:05)
[2016-05-17] MEDS: CALCIUM CARBONATE PO SCH (18:05)
[2016-05-17] MEDS: OMEGA FISH OIL PO SCH (18:06)
[2016-05-17] MEDS: [UNRECOGNIZED DRUG - OTHER] PO SCH (18:06)
[2016-05-18] MEDS: LEVOTHYROXINE 75 MCG PO SCH (06:26)
[2016-05-18] MEDS: CHOLECALCIFEROL 5000 UNIT PO SCH (10:04)
[2016-05-18] MEDS: UBIDECARENONE 100 MG PO SCH ×2 (10:05→19:32)
[2016-05-18] MEDS: Acetaminophen 650 MG Tab.ER PO PRN (10:06)
[2016-05-18] MEDS: DABIGATRAN 150 MG PO SCH ×2 (10:06→19:31)
[2016-05-18] MEDS: MAGNESIUM OXIDE PO SCH (19:31)
[2016-05-18] MEDS: CALCIUM CARBONATE PO SCH (19:31)
[2016-05-18] MEDS: ZINC GLUCONATE PO SCH (19:31)
[2016-05-18] MEDS: [UNRECOGNIZED DRUG - OTHER] PO SCH (19:32)
[2016-05-18] MEDS: OMEGA FISH OIL PO SCH (19:32)
[2016-05-19] MEDS: LEVOTHYROXINE 75 MCG PO SCH (06:24)
[2016-05-19] MEDS: UBIDECARENONE 100 MG PO SCH ×2 (09:36→18:16)
[2016-05-19] MEDS: DABIGATRAN 150 MG PO SCH ×2 (09:36→18:16)
[2016-05-19] MEDS: CHOLECALCIFEROL 5000 UNIT PO SCH (09:36)
[2016-05-19] MEDS: Acetaminophen 650 MG Tab.ER PO PRN (09:37)
[2016-05-19] MEDS: OMEGA FISH OIL PO SCH (18:16)
[2016-05-19] MEDS: CALCIUM CARBONATE PO SCH (18:16)
[2016-05-19] MEDS: ZINC GLUCONATE PO SCH (18:16)
[2016-05-19] MEDS: [UNRECOGNIZED DRUG - OTHER] PO SCH (18:16)
[2016-05-19] MEDS: MAGNESIUM OXIDE PO SCH (18:16)
[2016-05-19] MEDS: Betamethasone Dipropionate/Clotrimazole 0.05-1% Crm 15 GM Tube TOP SCH (23:10)
[2016-05-20] MEDS: LEVOTHYROXINE 75 MCG PO SCH (06:15)
[2016-05-20] MEDS: CHOLECALCIFEROL 5000 UNIT PO SCH (10:46)
[2016-05-20] MEDS: UBIDECARENONE 100 MG PO SCH ×2 (10:47→20:17)
[2016-05-20] MEDS: DABIGATRAN 150 MG PO SCH ×2 (10:48→20:15)
[2016-05-20] MEDS: Acetaminophen 650 MG Tab.ER PO PRN (10:49)
[2016-05-20] MEDS: CONJUGATED ESTROGENS TOP SCH (19:11)
[2016-05-20] MEDS: [UNRECOGNIZED DRUG - OTHER] TOP SCH (19:11)
[2016-05-20] MEDS: CALCIUM CARBONATE PO SCH (20:16)
[2016-05-20] MEDS: [UNRECOGNIZED DRUG - OTHER] PO SCH (20:16)
[2016-05-20] MEDS: OMEGA FISH OIL PO SCH (20:16)
[2016-05-20] MEDS: MAGNESIUM OXIDE PO SCH (20:16)
[2016-05-20] MEDS: ZINC GLUCONATE PO SCH (20:16)
[2016-05-21] MEDS: LEVOTHYROXINE 75 MCG PO SCH (06:21)
[2016-05-21] MEDS: DABIGATRAN 150 MG PO SCH ×2 (10:00→18:12)
[2016-05-21] MEDS: Acetaminophen 650 MG Tab.ER PO PRN (10:00)
[2016-05-21] MEDS: UBIDECARENONE 100 MG PO SCH ×2 (10:01→18:12)
[2016-05-21] MEDS: CHOLECALCIFEROL 5000 UNIT PO SCH (10:01)
[2016-05-21] MEDS: OMEGA FISH OIL PO SCH (18:12)
[2016-05-21] MEDS: MAGNESIUM OXIDE PO SCH (18:12)
[2016-05-21] MEDS: CALCIUM CARBONATE PO SCH (18:12)
[2016-05-21] MEDS: ZINC GLUCONATE PO SCH (18:12)
[2016-05-21] MEDS: [UNRECOGNIZED DRUG - OTHER] PO SCH (18:12)
[2016-05-21] MEDS: Betamethasone Dipropionate/Clotrimazole 0.05-1% Crm 15 GM Tube TOP SCH (23:08)
[2016-05-22] MEDS: LEVOTHYROXINE 75 MCG PO SCH (06:39)
[2016-05-22] MEDS: DABIGATRAN 150 MG PO SCH ×2 (09:42→18:27)
[2016-05-22] MEDS: UBIDECARENONE 100 MG PO SCH ×2 (09:43→18:27)
[2016-05-22] MEDS: Acetaminophen 650 MG Tab.ER PO PRN (09:43)
[2016-05-22] MEDS: CHOLECALCIFEROL 5000 UNIT PO SCH (09:43)
[2016-05-22] MEDS: OMEGA FISH OIL PO SCH (18:26)
[2016-05-22] MEDS: [UNRECOGNIZED DRUG - OTHER] PO SCH (18:27)
[2016-05-22] MEDS: ZINC GLUCONATE PO SCH (18:27)
[2016-05-22] MEDS: MAGNESIUM OXIDE PO SCH (18:27)
[2016-05-22] MEDS: CALCIUM CARBONATE PO SCH (18:27)
[2016-05-23] MEDS: LEVOTHYROXINE 75 MCG PO SCH (06:05)
[2016-05-23] MEDS: CONJUGATED ESTROGENS TOP SCH (09:44)
[2016-05-23] MEDS: [UNRECOGNIZED DRUG - OTHER] TOP SCH (09:44)
[2016-05-23] MEDS: CHOLECALCIFEROL 5000 UNIT PO SCH (09:45)
[2016-05-23] MEDS: UBIDECARENONE 100 MG PO SCH ×2 (09:45→21:12)
[2016-05-23] MEDS: Acetaminophen 650 MG Tab.ER PO PRN (09:46)
[2016-05-23] MEDS: DABIGATRAN 150 MG PO SCH ×2 (09:46→21:13)
[2016-05-23] MEDS: MAGNESIUM OXIDE PO SCH (21:10)
[2016-05-23] MEDS: ZINC GLUCONATE PO SCH (21:10)
[2016-05-23] MEDS: CALCIUM CARBONATE PO SCH (21:10)
[2016-05-23] MEDS: [UNRECOGNIZED DRUG - OTHER] PO SCH (21:10)
[2016-05-23] MEDS: OMEGA FISH OIL PO SCH (21:11)
[2016-05-24] MEDS: Betamethasone Dipropionate/Clotrimazole 0.05-1% Crm 15 GM Tube TOP SCH (01:05)
[2016-05-24] MEDS: DABIGATRAN 150 MG PO SCH ×2 (09:51→17:59)
[2016-05-24] MEDS: CHOLECALCIFEROL 5000 UNIT PO SCH (09:51)
[2016-05-24] MEDS: UBIDECARENONE 100 MG PO SCH ×2 (09:52→17:59)
[2016-05-24] MEDS: Acetaminophen 650 MG Tab.ER PO PRN (09:53)
[2016-05-24] MEDS: [UNRECOGNIZED DRUG - OTHER] PO SCH (17:59)
[2016-05-24] MEDS: CALCIUM CARBONATE PO SCH (17:59)
[2016-05-24] MEDS: MAGNESIUM OXIDE PO SCH (17:59)
[2016-05-24] MEDS: ZINC GLUCONATE PO SCH (17:59)
[2016-05-24] MEDS: OMEGA FISH OIL PO SCH (17:59)
[2016-05-25] MEDS: LEVOTHYROXINE 75 MCG PO SCH (06:52)
[2016-05-25] MEDS: CHOLECALCIFEROL 5000 UNIT PO SCH (09:00)
[2016-05-25] MEDS: UBIDECARENONE 100 MG PO SCH ×2 (09:00→17:59)
[2016-05-25] MEDS: DABIGATRAN 150 MG PO SCH ×2 (09:00→17:59)
[2016-05-25] MEDS: Acetaminophen 650 MG Tab.ER PO PRN (09:01)
[2016-05-25] MEDS: [UNRECOGNIZED DRUG - OTHER] PO SCH (17:59)
[2016-05-25] MEDS: OMEGA FISH OIL PO SCH (17:59)
[2016-05-25] MEDS: CALCIUM CARBONATE PO SCH (17:59)
[2016-05-25] MEDS: MAGNESIUM OXIDE PO SCH (17:59)
[2016-05-25] MEDS: ZINC GLUCONATE PO SCH (17:59)
[2016-05-26] MEDS: LEVOTHYROXINE 75 MCG PO SCH (06:01)
[2016-05-26] MEDS: CHOLECALCIFEROL 5000 UNIT PO SCH (09:48)
[2016-05-26] MEDS: DABIGATRAN 150 MG PO SCH ×2 (09:48→18:19)
[2016-05-26] MEDS: UBIDECARENONE 100 MG PO SCH ×2 (09:48→18:18)
[2016-05-26] MEDS: Acetaminophen 650 MG Tab.ER PO PRN (09:49)
[2016-05-26] MEDS: [UNRECOGNIZED DRUG - OTHER] TOP SCH (09:49)
[2016-05-26] MEDS: CONJUGATED ESTROGENS TOP SCH (09:49)
[2016-05-26] MEDS: OMEGA FISH OIL PO SCH (18:18)
[2016-05-26] MEDS: MAGNESIUM OXIDE PO SCH (18:18)
[2016-05-26] MEDS: ZINC GLUCONATE PO SCH (18:18)
[2016-05-26] MEDS: CALCIUM CARBONATE PO SCH (18:18)
[2016-05-26] MEDS: [UNRECOGNIZED DRUG - OTHER] PO SCH (18:18)
[2016-05-27] MEDS: LEVOTHYROXINE 75 MCG PO SCH (06:13)
[2016-05-27] MEDS: Betamethasone Dipropionate/Clotrimazole 0.05-1% Crm 15 GM Tube TOP SCH (06:13)
[2016-05-27] MEDS: DABIGATRAN 150 MG PO SCH ×2 (10:14→18:02)
[2016-05-27] MEDS: CHOLECALCIFEROL 5000 UNIT PO SCH (10:14)
[2016-05-27] MEDS: UBIDECARENONE 100 MG PO SCH ×2 (10:15→18:03)
[2016-05-27] MEDS: Acetaminophen 650 MG Tab.ER PO PRN (10:16)
[2016-05-27] MEDS: CALCIUM CARBONATE PO SCH (18:02)
[2016-05-27] MEDS: MAGNESIUM OXIDE PO SCH (18:02)
[2016-05-27] MEDS: ZINC GLUCONATE PO SCH (18:02)
[2016-05-27] MEDS: [UNRECOGNIZED DRUG - OTHER] PO SCH (18:03)
[2016-05-27] MEDS: OMEGA FISH OIL PO SCH (18:03)
[2016-05-28] MEDS: LEVOTHYROXINE 75 MCG PO SCH (05:59)
[2016-05-28] MEDS: UBIDECARENONE 100 MG PO SCH ×2 (09:26→18:26)
[2016-05-28] MEDS: DABIGATRAN 150 MG PO SCH ×2 (09:27→18:26)
[2016-05-28] MEDS: CHOLECALCIFEROL 5000 UNIT PO SCH (09:27)
[2016-05-28] MEDS: Acetaminophen 650 MG Tab.ER PO PRN (09:27)
[2016-05-28] MEDS: [UNRECOGNIZED DRUG - OTHER] PO SCH (18:26)
[2016-05-28] MEDS: MAGNESIUM OXIDE PO SCH (18:26)
[2016-05-28] MEDS: ZINC GLUCONATE PO SCH (18:26)
[2016-05-28] MEDS: CALCIUM CARBONATE PO SCH (18:26)
[2016-05-28] MEDS: OMEGA FISH OIL PO SCH (18:26)
[2016-05-28] MEDS: Betamethasone Dipropionate/Clotrimazole 0.05-1% Crm 15 GM Tube TOP SCH (22:48)
[2016-05-29] MEDS: LEVOTHYROXINE 75 MCG PO SCH (06:08)
[2016-05-29] MEDS: CHOLECALCIFEROL 5000 UNIT PO SCH (09:31)
[2016-05-29] MEDS: UBIDECARENONE 100 MG PO SCH ×2 (09:31→19:48)
[2016-05-29] MEDS: DABIGATRAN 150 MG PO SCH ×2 (09:32→19:49)
[2016-05-29] MEDS: CONJUGATED ESTROGENS TOP SCH (09:34)
[2016-05-29] MEDS: [UNRECOGNIZED DRUG - OTHER] TOP SCH (09:34)
[2016-05-29] MEDS: Acetaminophen 650 MG Tab.ER PO PRN (09:36)
[2016-05-29] MEDS: CALCIUM CARBONATE PO SCH (19:48)
[2016-05-29] MEDS: [UNRECOGNIZED DRUG - OTHER] PO SCH (19:48)
[2016-05-29] MEDS: ZINC GLUCONATE PO SCH (19:48)
[2016-05-29] MEDS: MAGNESIUM OXIDE PO SCH (19:48)
[2016-05-29] MEDS: OMEGA FISH OIL PO SCH (19:48)
[2016-05-30] MEDS: LEVOTHYROXINE 75 MCG PO SCH (06:06)
[2016-05-30] MEDS: CHOLECALCIFEROL 5000 UNIT PO SCH (10:33)
[2016-05-30] MEDS: UBIDECARENONE 100 MG PO SCH ×2 (10:33→18:02)
[2016-05-30] MEDS: DABIGATRAN 150 MG PO SCH ×2 (10:34→18:00)
[2016-05-30] MEDS: Acetaminophen 650 MG Tab.ER PO PRN (10:34)
[2016-05-30] MEDS: CALCIUM CARBONATE PO SCH (18:01)
[2016-05-30] MEDS: ZINC GLUCONATE PO SCH (18:01)
[2016-05-30] MEDS: OMEGA FISH OIL PO SCH (18:01)
[2016-05-30] MEDS: MAGNESIUM OXIDE PO SCH (18:01)
[2016-05-30] MEDS: [UNRECOGNIZED DRUG - OTHER] PO SCH (18:02)
[2016-05-30] MEDS: Betamethasone Dipropionate/Clotrimazole 0.05-1% Crm 15 GM Tube TOP SCH (22:17)
[2016-05-31] MEDS: DABIGATRAN 150 MG PO SCH ×2 (09:24→18:17)
[2016-05-31] MEDS: CHOLECALCIFEROL 5000 UNIT PO SCH (09:24)
[2016-05-31] MEDS: UBIDECARENONE 100 MG PO SCH ×2 (09:24→18:17)
[2016-05-31] MEDS: Acetaminophen 650 MG Tab.ER PO PRN ×2 (09:25→17:12)
[2016-05-31] MEDS: ZINC GLUCONATE PO SCH (18:17)
[2016-05-31] MEDS: OMEGA FISH OIL PO SCH (18:17)
[2016-05-31] MEDS: MAGNESIUM OXIDE PO SCH (18:17)
[2016-05-31] MEDS: [UNRECOGNIZED DRUG - OTHER] PO SCH (18:17)
[2016-05-31] MEDS: CALCIUM CARBONATE PO SCH (18:17)
[2016-06-01] MEDS: DABIGATRAN 150 MG PO SCH ×2 (09:58→18:00)
[2016-06-01] MEDS: CONJUGATED ESTROGENS TOP SCH (09:58)
[2016-06-01] MEDS: [UNRECOGNIZED DRUG - OTHER] TOP SCH (09:58)
[2016-06-01] MEDS: UBIDECARENONE 100 MG PO SCH ×2 (09:58→18:00)
[2016-06-01] MEDS: CHOLECALCIFEROL 5000 UNIT PO SCH (09:58)
[2016-06-01] MEDS: Acetaminophen 650 MG Tab.ER PO PRN ×2 (09:58→18:00)
[2016-06-01] MEDS: LEVOTHYROXINE 75 MCG PO SCH (10:30)
[2016-06-01] MEDS: OMEGA FISH OIL PO SCH (18:00)
[2016-06-01] MEDS: [UNRECOGNIZED DRUG - OTHER] PO SCH (18:00)
[2016-06-01] MEDS: ZINC GLUCONATE PO SCH (18:00)
[2016-06-01] MEDS: CALCIUM CARBONATE PO SCH (18:00)
[2016-06-01] MEDS: MAGNESIUM OXIDE PO SCH (18:00)
[2016-06-02] MEDS: LEVOTHYROXINE 75 MCG PO SCH (06:05)
[2016-06-02] MEDS: UBIDECARENONE 100 MG PO SCH ×2 (10:59→18:19)
[2016-06-02] MEDS: CHOLECALCIFEROL 5000 UNIT PO SCH (10:59)
[2016-06-02] MEDS: Acetaminophen 650 MG Tab.ER PO PRN (11:00)
[2016-06-02] MEDS: DABIGATRAN 150 MG PO SCH ×2 (11:00→18:18)
[2016-06-02] MEDS: [UNRECOGNIZED DRUG - OTHER] PO SCH (18:17)
[2016-06-02] MEDS: OMEGA FISH OIL PO SCH (18:17)
[2016-06-02] MEDS: CALCIUM CARBONATE PO SCH (18:18)
[2016-06-02] MEDS: MAGNESIUM OXIDE PO SCH (18:18)
[2016-06-02] MEDS: ZINC GLUCONATE PO SCH (18:18)
[2016-06-02] MEDS: Betamethasone Dipropionate/Clotrimazole 0.05-1% Crm 15 GM Tube TOP SCH (23:26)
[2016-06-03] MEDS: LEVOTHYROXINE 75 MCG PO SCH (06:12)
[2016-06-03] MEDS: UBIDECARENONE 100 MG PO SCH ×2 (09:56→18:21)
[2016-06-03] MEDS: CHOLECALCIFEROL 5000 UNIT PO SCH (09:56)
[2016-06-03] MEDS: Acetaminophen 650 MG Tab.ER PO PRN (09:56)
[2016-06-03] MEDS: DABIGATRAN 150 MG PO SCH ×2 (09:56→18:21)
[2016-06-03] MEDS: ZINC GLUCONATE PO SCH (18:21)
[2016-06-03] MEDS: [UNRECOGNIZED DRUG - OTHER] PO SCH (18:21)
[2016-06-03] MEDS: OMEGA FISH OIL PO SCH (18:21)
[2016-06-03] MEDS: CALCIUM CARBONATE PO SCH (18:21)
[2016-06-03] MEDS: MAGNESIUM OXIDE PO SCH (18:21)
[2016-06-04] MEDS: LEVOTHYROXINE 75 MCG PO SCH (06:10)
[2016-06-04] MEDS: UBIDECARENONE 100 MG PO SCH ×2 (09:53→18:03)
[2016-06-04] MEDS: CHOLECALCIFEROL 5000 UNIT PO SCH (09:53)
[2016-06-04] MEDS: DABIGATRAN 150 MG PO SCH ×2 (09:53→18:03)
[2016-06-04] MEDS: CONJUGATED ESTROGENS TOP SCH (09:55)
[2016-06-04] MEDS: [UNRECOGNIZED DRUG - OTHER] TOP SCH (09:55)
[2016-06-04] MEDS: CALCIUM CARBONATE PO SCH (18:02)
[2016-06-04] MEDS: OMEGA FISH OIL PO SCH (18:02)
[2016-06-04] MEDS: MAGNESIUM OXIDE PO SCH (18:02)
[2016-06-04] MEDS: ZINC GLUCONATE PO SCH (18:02)
[2016-06-04] MEDS: [UNRECOGNIZED DRUG - OTHER] PO SCH (18:02)
[2016-06-05] MEDS: Betamethasone Dipropionate/Clotrimazole 0.05-1% Crm 15 GM Tube TOP SCH (06:19)
[2016-06-05] MEDS: LEVOTHYROXINE 75 MCG PO SCH (06:38)
[2016-06-05] MEDS: CHOLECALCIFEROL 5000 UNIT PO SCH (09:15)
[2016-06-05] MEDS: DABIGATRAN 150 MG PO SCH ×2 (09:15→18:04)
[2016-06-05] MEDS: UBIDECARENONE 100 MG PO SCH ×2 (09:15→18:05)
[2016-06-05] MEDS: Acetaminophen 650 MG Tab.ER PO PRN (09:15)
[2016-06-05] MEDS: ZINC GLUCONATE PO SCH (18:04)
[2016-06-05] MEDS: MAGNESIUM OXIDE PO SCH (18:04)
[2016-06-05] MEDS: CALCIUM CARBONATE PO SCH (18:04)
[2016-06-05] MEDS: [UNRECOGNIZED DRUG - OTHER] PO SCH (18:05)
[2016-06-05] MEDS: OMEGA FISH OIL PO SCH (18:05)
[2016-06-06] MEDS: LEVOTHYROXINE 75 MCG PO SCH (06:08)
[2016-06-06] MEDS: DABIGATRAN 150 MG PO SCH ×2 (11:01→18:38)
[2016-06-06] MEDS: UBIDECARENONE 100 MG PO SCH ×2 (11:02→18:38)
[2016-06-06] MEDS: CHOLECALCIFEROL 5000 UNIT PO SCH (11:02)
[2016-06-06] MEDS: Acetaminophen 650 MG Tab.ER PO PRN (11:02)
[2016-06-06] MEDS: CALCIUM CARBONATE PO SCH (18:37)
[2016-06-06] MEDS: ZINC GLUCONATE PO SCH (18:37)
[2016-06-06] MEDS: OMEGA FISH OIL PO SCH (18:37)
[2016-06-06] MEDS: MAGNESIUM OXIDE PO SCH (18:37)
[2016-06-06] MEDS: [UNRECOGNIZED DRUG - OTHER] PO SCH (18:38)
[2016-06-07] MEDS: Betamethasone Dipropionate/Clotrimazole 0.05-1% Crm 15 GM Tube TOP SCH (05:53)
[2016-06-07] MEDS: [UNRECOGNIZED DRUG - OTHER] TOP SCH (09:33)
[2016-06-07] MEDS: Acetaminophen 650 MG Tab.ER PO PRN (09:33)
[2016-06-07] MEDS: CONJUGATED ESTROGENS TOP SCH (09:33)
[2016-06-07] MEDS: CHOLECALCIFEROL 5000 UNIT PO SCH (09:34)
[2016-06-07] MEDS: DABIGATRAN 150 MG PO SCH ×2 (09:34→18:09)
[2016-06-07] MEDS: UBIDECARENONE 100 MG PO SCH ×2 (09:35→18:09)
[2016-06-07] MEDS: ZINC GLUCONATE PO SCH (18:08)
[2016-06-07] MEDS: MAGNESIUM OXIDE PO SCH (18:08)
[2016-06-07] MEDS: [UNRECOGNIZED DRUG - OTHER] PO SCH (18:08)
[2016-06-07] MEDS: CALCIUM CARBONATE PO SCH (18:08)
[2016-06-07] MEDS: OMEGA FISH OIL PO SCH (18:09)
[2016-06-08] MEDS: LEVOTHYROXINE 75 MCG PO SCH (06:00)
[2016-06-08] MEDS: CHOLECALCIFEROL 5000 UNIT PO SCH (10:14)
[2016-06-08] MEDS: DABIGATRAN 150 MG PO SCH ×2 (10:15→18:21)
[2016-06-08] MEDS: UBIDECARENONE 100 MG PO SCH ×2 (10:15→18:22)
[2016-06-08] MEDS: Acetaminophen 650 MG Tab.ER PO PRN (10:16)
[2016-06-08] MEDS: ZINC GLUCONATE PO SCH (18:21)
[2016-06-08] MEDS: MAGNESIUM OXIDE PO SCH (18:21)
[2016-06-08] MEDS: CALCIUM CARBONATE PO SCH (18:21)
[2016-06-08] MEDS: OMEGA FISH OIL PO SCH (18:22)
[2016-06-08] MEDS: [UNRECOGNIZED DRUG - OTHER] PO SCH (18:22)
[2016-06-09] MEDS: LEVOTHYROXINE 75 MCG PO SCH (06:16)
[2016-06-09 07:05] LABS: CHLORIDE,CL 105 mmol/L (98-107); SODIUM,NA 141 mmol/L (136-145)
[2016-06-09] MEDS: CLOBETASOL 0.05% TOP PRN (10:45)
[2016-06-09] MEDS: DABIGATRAN 150 MG PO SCH ×2 (10:47→19:19)
[2016-06-09] MEDS: UBIDECARENONE 100 MG PO SCH ×2 (10:48→19:20)
[2016-06-09] MEDS: CHOLECALCIFEROL 5000 UNIT PO SCH (10:48)
[2016-06-09] MEDS: Acetaminophen 650 MG Tab.ER PO PRN (10:50)
[2016-06-09] MEDS: CALCIUM CARBONATE PO SCH (19:20)
[2016-06-09] MEDS: MAGNESIUM OXIDE PO SCH (19:20)
[2016-06-09] MEDS: [UNRECOGNIZED DRUG - OTHER] PO SCH (19:20)
[2016-06-09] MEDS: ZINC GLUCONATE PO SCH (19:20)
[2016-06-09] MEDS: OMEGA FISH OIL PO SCH (19:20)
[2016-06-09] MEDS: Betamethasone Dipropionate/Clotrimazole 0.05-1% Crm 15 GM Tube TOP SCH (23:34)
[2016-06-10] MEDS: LEVOTHYROXINE 75 MCG PO SCH (06:00)
[2016-06-10] MEDS: UBIDECARENONE 100 MG PO SCH ×2 (09:40→18:00)
[2016-06-10] MEDS: CHOLECALCIFEROL 5000 UNIT PO SCH (09:40)
[2016-06-10] MEDS: DABIGATRAN 150 MG PO SCH ×2 (09:41→18:00)
[2016-06-10] MEDS: Acetaminophen 650 MG Tab.ER PO PRN (09:41)
[2016-06-10] MEDS: [UNRECOGNIZED DRUG - OTHER] TOP SCH (09:42)
[2016-06-10] MEDS: CONJUGATED ESTROGENS TOP SCH (09:42)
[2016-06-10] MEDS: MAGNESIUM OXIDE PO SCH (17:59)
[2016-06-10] MEDS: CALCIUM CARBONATE PO SCH (17:59)
[2016-06-10] MEDS: [UNRECOGNIZED DRUG - OTHER] PO SCH (17:59)
[2016-06-10] MEDS: OMEGA FISH OIL PO SCH (17:59)
[2016-06-10] MEDS: ZINC GLUCONATE PO SCH (17:59)
[2016-06-11] MEDS: LEVOTHYROXINE 75 MCG PO SCH ×2 (04:25→06:12)
[2016-06-11] MEDS: UBIDECARENONE 100 MG PO SCH ×2 (10:22→18:17)
[2016-06-11] MEDS: CHOLECALCIFEROL 5000 UNIT PO SCH (10:22)
[2016-06-11] MEDS: Acetaminophen 650 MG Tab.ER PO PRN ×2 (10:23→20:19)
[2016-06-11] MEDS: DABIGATRAN 150 MG PO SCH ×2 (10:23→18:17)
[2016-06-11] MEDS: OMEGA FISH OIL PO SCH (18:16)
[2016-06-11] MEDS: [UNRECOGNIZED DRUG - OTHER] PO SCH (18:16)
[2016-06-11] MEDS: CALCIUM CARBONATE PO SCH (18:16)
[2016-06-11] MEDS: ZINC GLUCONATE PO SCH (18:16)
[2016-06-11] MEDS: MAGNESIUM OXIDE PO SCH (18:16)
[2016-06-11] MEDS: Betamethasone Dipropionate/Clotrimazole 0.05-1% Crm 15 GM Tube TOP SCH (22:44)
[2016-06-12] MEDS: LEVOTHYROXINE 75 MCG PO SCH (06:01)
[2016-06-12] MEDS: Acetaminophen 650 MG Tab.ER PO PRN (10:38)
[2016-06-12] MEDS: DABIGATRAN 150 MG PO SCH ×2 (10:38→20:33)
[2016-06-12] MEDS: CHOLECALCIFEROL 5000 UNIT PO SCH (10:39)
[2016-06-12] MEDS: UBIDECARENONE 100 MG PO SCH ×2 (10:39→20:29)
[2016-06-12] MEDS: [UNRECOGNIZED DRUG - OTHER] PO SCH (20:30)
[2016-06-12] MEDS: ZINC GLUCONATE PO SCH (20:32)
[2016-06-12] MEDS: MAGNESIUM OXIDE PO SCH (20:32)
[2016-06-12] MEDS: OMEGA FISH OIL PO SCH (20:32)
[2016-06-12] MEDS: CALCIUM CARBONATE PO SCH (20:32)
[2016-06-13] MEDS: LEVOTHYROXINE 75 MCG PO SCH (06:17)
[2016-06-13] MEDS: UBIDECARENONE 100 MG PO SCH ×2 (10:12→18:05)
[2016-06-13] MEDS: CHOLECALCIFEROL 5000 UNIT PO SCH (10:12)
[2016-06-13] MEDS: CONJUGATED ESTROGENS TOP SCH (10:13)
[2016-06-13] MEDS: [UNRECOGNIZED DRUG - OTHER] TOP SCH (10:13)
[2016-06-13] MEDS: DABIGATRAN 150 MG PO SCH ×2 (10:13→18:04)
[2016-06-13] MEDS: ZINC GLUCONATE PO SCH (18:06)
[2016-06-13] MEDS: OMEGA FISH OIL PO SCH (18:06)
[2016-06-13] MEDS: CALCIUM CARBONATE PO SCH (18:06)
[2016-06-13] MEDS: MAGNESIUM OXIDE PO SCH (18:06)
[2016-06-13] MEDS: [UNRECOGNIZED DRUG - OTHER] PO SCH (18:06)
[2016-06-13] MEDS: Betamethasone Dipropionate/Clotrimazole 0.05-1% Crm 15 GM Tube TOP SCH (23:12)
[2016-06-14] MEDS: UBIDECARENONE 100 MG PO SCH ×2 (09:54→18:21)
[2016-06-14] MEDS: CHOLECALCIFEROL 5000 UNIT PO SCH (09:55)
[2016-06-14] MEDS: DABIGATRAN 150 MG PO SCH ×2 (09:55→18:21)
[2016-06-14] MEDS: ZINC GLUCONATE PO SCH (18:20)
[2016-06-14] MEDS: [UNRECOGNIZED DRUG - OTHER] PO SCH (18:20)
[2016-06-14] MEDS: MAGNESIUM OXIDE PO SCH (18:20)
[2016-06-14] MEDS: CALCIUM CARBONATE PO SCH (18:20)
[2016-06-14] MEDS: OMEGA FISH OIL PO SCH (18:20)
[2016-06-15] MEDS: LEVOTHYROXINE 75 MCG PO SCH (06:12)
[2016-06-15] MEDS: DABIGATRAN 150 MG PO SCH ×2 (09:49→18:18)
[2016-06-15] MEDS: CHOLECALCIFEROL 5000 UNIT PO SCH (09:49)
[2016-06-15] MEDS: UBIDECARENONE 100 MG PO SCH ×2 (09:50→18:19)
[2016-06-15] MEDS: OMEGA FISH OIL PO SCH (18:19)
[2016-06-15] MEDS: [UNRECOGNIZED DRUG - OTHER] PO SCH (18:19)
[2016-06-15] MEDS: CALCIUM CARBONATE PO SCH (18:20)
[2016-06-15] MEDS: MAGNESIUM OXIDE PO SCH (18:20)
[2016-06-15] MEDS: ZINC GLUCONATE PO SCH (18:20)
[2016-06-16] MEDS: LEVOTHYROXINE 75 MCG PO SCH (08:30)
[2016-06-16] MEDS: UBIDECARENONE 100 MG PO SCH ×2 (10:12→18:17)
[2016-06-16] MEDS: CHOLECALCIFEROL 5000 UNIT PO SCH (10:12)
[2016-06-16] MEDS: Acetaminophen 650 MG Tab.ER PO PRN (10:13)
[2016-06-16] MEDS: CONJUGATED ESTROGENS TOP SCH (10:13)
[2016-06-16] MEDS: DABIGATRAN 150 MG PO SCH ×2 (10:13→18:17)
[2016-06-16] MEDS: [UNRECOGNIZED DRUG - OTHER] TOP SCH (10:13)
[2016-06-16] MEDS: CALCIUM CARBONATE PO SCH (18:17)
[2016-06-16] MEDS: [UNRECOGNIZED DRUG - OTHER] PO SCH (18:17)
[2016-06-16] MEDS: ZINC GLUCONATE PO SCH (18:17)
[2016-06-16] MEDS: MAGNESIUM OXIDE PO SCH (18:17)
[2016-06-16] MEDS: OMEGA FISH OIL PO SCH (18:17)
[2016-06-16] MEDS: Betamethasone Dipropionate/Clotrimazole 0.05-1% Crm 15 GM Tube TOP SCH (22:29)
[2016-06-17] MEDS: Betamethasone Dipropionate/Clotrimazole 0.05-1% Crm 15 GM Tube TOP SCH ×2 (02:22→23:02)
[2016-06-17] MEDS: LEVOTHYROXINE 75 MCG PO SCH (06:11)
[2016-06-17] MEDS: UBIDECARENONE 100 MG PO SCH ×2 (09:29→18:04)
[2016-06-17] MEDS: DABIGATRAN 150 MG PO SCH ×2 (09:29→18:04)
[2016-06-17] MEDS: CHOLECALCIFEROL 5000 UNIT PO SCH (09:29)
[2016-06-17] MEDS: Acetaminophen 650 MG Tab.ER PO PRN (09:30)
[2016-06-17] MEDS: CLOBETASOL 0.05% TOP PRN ×2 (09:33→23:06)
[2016-06-17] MEDS: Menthol/Methyl Salicylate 85 GM Tube TOP SCH ×2 (13:13→23:03)
[2016-06-17] MEDS: [UNRECOGNIZED DRUG - OTHER] PO SCH (18:04)
[2016-06-17] MEDS: OMEGA FISH OIL PO SCH (18:05)
[2016-06-17] MEDS: MAGNESIUM OXIDE PO SCH (18:05)
[2016-06-17] MEDS: ZINC GLUCONATE PO SCH (18:05)
[2016-06-17] MEDS: CALCIUM CARBONATE PO SCH (18:05)
[2016-06-18] MEDS: LEVOTHYROXINE 75 MCG PO SCH (06:00)
--- NOTE | 2016-06-18 10:01 | PN ---
Progress Note for EMILY SHEETS Date: 06/17/2016 Room #: SUBJECTIVE: This is an 86-year-old on swing bed for over a year now due to painful osteoarthritis requiring assistance with ADLs. The patient has been having more left knee pain for the past few days. She states she has always had it, but now, it is affecting her ambulation. She has been using Tylenol without significant relief. She has not been using her Icy Hot. She is on Pradaxa for atrial fibrillation. She has not been taking NSAIDs. Otherwise, all her lab work from 06/09 was reviewed and looked okay. OBJECTIVE: Vital Signs: Her weight is 78.9 kg, temp 97.9, pulse 75, blood pressure 128/71, respiratory rate 20, O2 93% on room air. General: She is in no acute distress. Heart: Irregularly irregular. Lungs: Sounds are clear to auscultation bilaterally without crackles or wheezes. Extremities: Warm and dry. No edema. Mental status: Alert and orientated x3. Left knee examined. Range of motion, she has limited extension of the knee, she is not able to get into full extension, about 10 degrees short. She does have limited flexion also, she is not able to get to 90. She has no swelling but her tenderness is in the inferior medial aspect over the pes anserine tendon. She does have some valgus deformity. Gait was assessed just by her getting up out of the chair, she required assistance and did transfer while holding on to her wheelchair and her chair. ASSESSMENT: 1. Left knee pain, probably due to painful osteoarthritis. We discussed x- rays and injections. She has never had an injection before but has been through therapy, she is willing to try that again. Maybe some ultrasound would help with pain, we will also increase her Tylenol to 1 g at a time up to 4 times daily and use her Icy Hot, she declines any stronger pain pills. 2. Atrial fibrillation with previous transient ischemic attack, on Pradaxa. 3. Hypothyroidism. 4. Essential hypertension. 5. Atrophic vaginitis. 6. Mild thrombocytopenia, platelets 126 on 06/09. She has no bleeding problems. PLAN: At this point, the patient will continue swing bed cares. We will have physical therapy help with her left knee pain and ambulation. Consider knee brace if appropriate or further therapies. Consider x-rays of the knee and injection. Increase her Tylenol. MKA: 06/17/2016 12:32:53 MODL: 06/17/2016 12:58:59 /[id number]
[2016-06-18] MEDS: CLOBETASOL 0.05% TOP PRN (10:34)
[2016-06-18] MEDS: CHOLECALCIFEROL 5000 UNIT PO SCH (10:36)
[2016-06-18] MEDS: UBIDECARENONE 100 MG PO SCH ×2 (10:36→18:08)
[2016-06-18] MEDS: DABIGATRAN 150 MG PO SCH ×2 (10:37→18:10)
[2016-06-18] MEDS: Menthol/Methyl Salicylate 85 GM Tube TOP SCH (10:38)
[2016-06-18] MEDS: Acetaminophen 500 MG Tab PO PRN (10:42)
[2016-06-18] MEDS: ZINC GLUCONATE PO SCH (18:08)
[2016-06-18] MEDS: CALCIUM CARBONATE PO SCH (18:08)
[2016-06-18] MEDS: MAGNESIUM OXIDE PO SCH (18:08)
[2016-06-18] MEDS: OMEGA FISH OIL PO SCH (18:09)
[2016-06-18] MEDS: [UNRECOGNIZED DRUG - OTHER] PO SCH (18:09)
[2016-06-19] MEDS: Menthol/Methyl Salicylate 85 GM Tube TOP SCH ×3 (00:30→23:13)
[2016-06-19] MEDS: Betamethasone Dipropionate/Clotrimazole 0.05-1% Crm 15 GM Tube TOP SCH (00:31)
[2016-06-19] MEDS: CLOBETASOL 0.05% TOP PRN (04:04)
[2016-06-19] MEDS: LEVOTHYROXINE 75 MCG PO SCH (06:18)
[2016-06-19] MEDS: DABIGATRAN 150 MG PO SCH ×2 (10:01→18:04)
[2016-06-19] MEDS: UBIDECARENONE 100 MG PO SCH ×2 (10:02→18:05)
[2016-06-19] MEDS: CHOLECALCIFEROL 5000 UNIT PO SCH (10:02)
[2016-06-19] MEDS: Clobetasol 0.05% Crm 30 GM Tube TOP SCH (10:27)
[2016-06-19] MEDS: CONJUGATED ESTROGENS TOP SCH (10:28)
[2016-06-19] MEDS: [UNRECOGNIZED DRUG - OTHER] TOP SCH (10:28)
[2016-06-19] MEDS: Acetaminophen 500 MG Tab PO PRN (10:29)
[2016-06-19] MEDS: [UNRECOGNIZED DRUG - OTHER] PO SCH (18:05)
[2016-06-19] MEDS: MAGNESIUM OXIDE PO SCH (18:05)
[2016-06-19] MEDS: CALCIUM CARBONATE PO SCH (18:05)
[2016-06-19] MEDS: ZINC GLUCONATE PO SCH (18:05)
[2016-06-19] MEDS: OMEGA FISH OIL PO SCH (18:05)
[2016-06-20] MEDS: LEVOTHYROXINE 75 MCG PO SCH (06:24)
--- NOTE | 2016-06-20 08:38 | PN ---
Progress Note for EMILY SHEETS Date: 04/12/2016 Room #: SUBJECTIVE: This is an 86-year-old on long-term swing bed. She is having less irritation vaginally, still a little discomfort, but no pain. She otherwise continues to have arthritis, aches in her knees, but she is able to get around her room with her walker. She also has left shoulder pain, which is long standing and she said they decided long ago not to do any surgery on that. OBJECTIVE: Vital Signs: Her temperature is 97.1, pulse 71, blood pressure 121/53, respiratory rate 18, and O2 of 94 on room air. General: She is in no acute distress. Heart: Regularly irregular. Lungs: Sounds were clear to auscultation bilaterally without crackles or wheezes. Extremities: Warm and dry. No edema. She has some deformity to both knees, probably due to arthritis. Mental Status: She is alert and oriented x3. ASSESSMENT: 1. Atrophic vaginitis and vaginal irritation, doing better. We will continue the same creams. 2. Atrial fibrillation with previous TIAs on Pradaxa. 3. Severe osteoarthritis limiting her ability to live independently. 4. Hypothyroidism, essential hypertension, and mild thrombocytopenia. PLAN: At this point, the patient is recertified for another month. She will have lab work on 06/09 for followup. We will keep her medications the same. We will keep her working with bladder therapies and pelvic for exercises as able. MKA: 04/12/2016 09:46:59 MODL: 04/12/2016 10:13:19 /[id number]
[2016-06-20] MEDS: Clobetasol 0.05% Crm 30 GM Tube TOP SCH (10:30)
[2016-06-20] MEDS: DABIGATRAN 150 MG PO SCH ×2 (10:48→18:04)
[2016-06-20] MEDS: CHOLECALCIFEROL 5000 UNIT PO SCH (10:49)
[2016-06-20] MEDS: UBIDECARENONE 100 MG PO SCH ×3 (10:49→18:03)
[2016-06-20] MEDS: Menthol/Methyl Salicylate 85 GM Tube TOP SCH ×2 (10:51→23:21)
[2016-06-20] MEDS: Acetaminophen 500 MG Tab PO PRN ×2 (10:52→17:34)
[2016-06-20] MEDS: [UNRECOGNIZED DRUG - OTHER] PO SCH ×2 (17:35→18:03)
[2016-06-20] MEDS: ZINC GLUCONATE PO SCH ×2 (17:35→18:02)
[2016-06-20] MEDS: CALCIUM CARBONATE PO SCH ×2 (17:35→18:02)
[2016-06-20] MEDS: OMEGA FISH OIL PO SCH ×2 (17:35→18:03)
[2016-06-20] MEDS: MAGNESIUM OXIDE PO SCH ×2 (17:35→18:02)
[2016-06-20] MEDS: Betamethasone Dipropionate/Clotrimazole 0.05-1% Crm 15 GM Tube TOP SCH (23:21)
[2016-06-21] MEDS: UBIDECARENONE 100 MG PO SCH ×2 (10:08→18:19)
[2016-06-21] MEDS: CHOLECALCIFEROL 5000 UNIT PO SCH (10:09)
[2016-06-21] MEDS: DABIGATRAN 150 MG PO SCH ×2 (10:09→18:19)
[2016-06-21] MEDS: Menthol/Methyl Salicylate 85 GM Tube TOP SCH ×2 (10:10→20:50)
[2016-06-21] MEDS: Acetaminophen 500 MG Tab PO PRN ×2 (10:10→17:09)
[2016-06-21] MEDS: Clobetasol 0.05% Crm 30 GM Tube TOP SCH (10:11)
[2016-06-21] MEDS: ZINC GLUCONATE PO SCH (18:19)
[2016-06-21] MEDS: [UNRECOGNIZED DRUG - OTHER] PO SCH (18:19)
[2016-06-21] MEDS: OMEGA FISH OIL PO SCH (18:19)
[2016-06-21] MEDS: MAGNESIUM OXIDE PO SCH (18:19)
[2016-06-21] MEDS: CALCIUM CARBONATE PO SCH (18:19)
[2016-06-22] MEDS: LEVOTHYROXINE 75 MCG PO SCH (06:39)
[2016-06-22] MEDS: CONJUGATED ESTROGENS TOP SCH (10:43)
[2016-06-22] MEDS: [UNRECOGNIZED DRUG - OTHER] TOP SCH (10:43)
[2016-06-22] MEDS: Clobetasol 0.05% Crm 30 GM Tube TOP SCH (10:44)
[2016-06-22] MEDS: CHOLECALCIFEROL 5000 UNIT PO SCH (10:47)
[2016-06-22] MEDS: DABIGATRAN 150 MG PO SCH ×2 (10:47→18:15)
[2016-06-22] MEDS: UBIDECARENONE 100 MG PO SCH ×2 (10:48→18:16)
[2016-06-22] MEDS: Menthol/Methyl Salicylate 85 GM Tube TOP SCH ×2 (10:48→23:07)
[2016-06-22] MEDS: Acetaminophen 500 MG Tab PO PRN ×2 (10:50→16:13)
[2016-06-22] MEDS: [UNRECOGNIZED DRUG - OTHER] PO SCH (18:16)
[2016-06-22] MEDS: MAGNESIUM OXIDE PO SCH (18:16)
[2016-06-22] MEDS: CALCIUM CARBONATE PO SCH (18:16)
[2016-06-22] MEDS: OMEGA FISH OIL PO SCH (18:16)
[2016-06-22] MEDS: ZINC GLUCONATE PO SCH (18:16)
[2016-06-23] MEDS: LEVOTHYROXINE 75 MCG PO SCH (06:16)
[2016-06-23] MEDS: CHOLECALCIFEROL 5000 UNIT PO SCH (10:17)
[2016-06-23] MEDS: Clobetasol 0.05% Crm 30 GM Tube TOP SCH (10:18)
[2016-06-23] MEDS: Menthol/Methyl Salicylate 85 GM Tube TOP SCH (10:20)
[2016-06-23] MEDS: DABIGATRAN 150 MG PO SCH ×2 (10:21→18:19)
[2016-06-23] MEDS: UBIDECARENONE 100 MG PO SCH ×2 (10:21→18:20)
[2016-06-23] MEDS: Acetaminophen 500 MG Tab PO PRN ×2 (10:24→17:09)
[2016-06-23] MEDS: MAGNESIUM OXIDE PO SCH (18:19)
[2016-06-23] MEDS: CALCIUM CARBONATE PO SCH (18:19)
[2016-06-23] MEDS: ZINC GLUCONATE PO SCH (18:19)
[2016-06-23] MEDS: [UNRECOGNIZED DRUG - OTHER] PO SCH (18:20)
[2016-06-23] MEDS: OMEGA FISH OIL PO SCH (18:20)
[2016-06-24] MEDS: Menthol/Methyl Salicylate 85 GM Tube TOP SCH ×3 (00:09→20:02)
[2016-06-24] MEDS: Betamethasone Dipropionate/Clotrimazole 0.05-1% Crm 15 GM Tube TOP SCH (00:09)
[2016-06-24] MEDS: LEVOTHYROXINE 75 MCG PO SCH (06:11)
[2016-06-24] MEDS: Clobetasol 0.05% Crm 30 GM Tube TOP SCH ×2 (06:17→09:43)
[2016-06-24] MEDS: Acetaminophen 500 MG Tab PO PRN ×2 (09:36→20:03)
[2016-06-24] MEDS: CHOLECALCIFEROL 5000 UNIT PO SCH (09:40)
[2016-06-24] MEDS: DABIGATRAN 150 MG PO SCH ×2 (09:40→20:00)
[2016-06-24] MEDS: UBIDECARENONE 100 MG PO SCH ×2 (09:41→20:01)
[2016-06-24] MEDS: MAGNESIUM OXIDE PO SCH (20:00)
[2016-06-24] MEDS: OMEGA FISH OIL PO SCH (20:00)
[2016-06-24] MEDS: ZINC GLUCONATE PO SCH (20:00)
[2016-06-24] MEDS: CALCIUM CARBONATE PO SCH (20:00)
[2016-06-24] MEDS: [UNRECOGNIZED DRUG - OTHER] PO SCH (20:01)
[2016-06-25] MEDS: LEVOTHYROXINE 75 MCG PO SCH (06:32)
[2016-06-25] MEDS: DABIGATRAN 150 MG PO SCH ×2 (09:26→18:02)
[2016-06-25] MEDS: UBIDECARENONE 100 MG PO SCH ×2 (09:27→18:02)
[2016-06-25] MEDS: CHOLECALCIFEROL 5000 UNIT PO SCH (09:27)
[2016-06-25] MEDS: Menthol/Methyl Salicylate 85 GM Tube TOP SCH ×2 (09:27→23:06)
[2016-06-25] MEDS: CONJUGATED ESTROGENS TOP SCH (09:28)
[2016-06-25] MEDS: [UNRECOGNIZED DRUG - OTHER] TOP SCH (09:28)
[2016-06-25] MEDS: Clobetasol 0.05% Crm 30 GM Tube TOP SCH (09:28)
[2016-06-25] MEDS: Acetaminophen 500 MG Tab PO PRN (09:29)
[2016-06-25] MEDS: OMEGA FISH OIL PO SCH (18:02)
[2016-06-25] MEDS: CALCIUM CARBONATE PO SCH (18:02)
[2016-06-25] MEDS: MAGNESIUM OXIDE PO SCH (18:02)
[2016-06-25] MEDS: [UNRECOGNIZED DRUG - OTHER] PO SCH (18:02)
[2016-06-25] MEDS: ZINC GLUCONATE PO SCH (18:02)
[2016-06-25] MEDS: Betamethasone Dipropionate/Clotrimazole 0.05-1% Crm 15 GM Tube TOP SCH (23:06)
[2016-06-26] MEDS: LEVOTHYROXINE 75 MCG PO SCH (06:26)
[2016-06-26] MEDS: Acetaminophen 500 MG Tab PO PRN ×2 (09:10→16:23)
[2016-06-26] MEDS: UBIDECARENONE 100 MG PO SCH ×2 (09:10→18:07)
[2016-06-26] MEDS: DABIGATRAN 150 MG PO SCH ×2 (09:10→18:08)
[2016-06-26] MEDS: CHOLECALCIFEROL 5000 UNIT PO SCH (09:10)
[2016-06-26] MEDS: Clobetasol 0.05% Crm 30 GM Tube TOP SCH (09:11)
[2016-06-26] MEDS: Menthol/Methyl Salicylate 85 GM Tube TOP SCH ×2 (09:11→20:16)
[2016-06-26] MEDS: [UNRECOGNIZED DRUG - OTHER] PO SCH (18:07)
[2016-06-26] MEDS: MAGNESIUM OXIDE PO SCH (18:07)
[2016-06-26] MEDS: ZINC GLUCONATE PO SCH (18:07)
[2016-06-26] MEDS: CALCIUM CARBONATE PO SCH (18:07)
[2016-06-26] MEDS: OMEGA FISH OIL PO SCH (18:07)
[2016-06-27] MEDS: LEVOTHYROXINE 75 MCG PO SCH (06:03)
[2016-06-27] MEDS: CHOLECALCIFEROL 5000 UNIT PO SCH (10:28)
[2016-06-27] MEDS: DABIGATRAN 150 MG PO SCH ×2 (10:28→18:57)
[2016-06-27] MEDS: UBIDECARENONE 100 MG PO SCH ×2 (10:28→18:58)
[2016-06-27] MEDS: Clobetasol 0.05% Crm 30 GM Tube TOP SCH (10:29)
[2016-06-27] MEDS: Acetaminophen 500 MG Tab PO PRN (10:30)
[2016-06-27] MEDS: Menthol/Methyl Salicylate 85 GM Tube TOP SCH ×4 (10:30→23:13)
[2016-06-27] MEDS: CALCIUM CARBONATE PO SCH (18:58)
[2016-06-27] MEDS: OMEGA FISH OIL PO SCH (18:58)
[2016-06-27] MEDS: ZINC GLUCONATE PO SCH (18:58)
[2016-06-27] MEDS: [UNRECOGNIZED DRUG - OTHER] PO SCH (18:58)
[2016-06-27] MEDS: MAGNESIUM OXIDE PO SCH (18:58)
[2016-06-27] MEDS: Betamethasone Dipropionate/Clotrimazole 0.05-1% Crm 15 GM Tube TOP SCH (23:12)
[2016-06-28] MEDS: UBIDECARENONE 100 MG PO SCH ×2 (10:21→18:43)
[2016-06-28] MEDS: DABIGATRAN 150 MG PO SCH ×2 (10:22→18:43)
[2016-06-28] MEDS: Clobetasol 0.05% Crm 30 GM Tube TOP SCH (10:22)
[2016-06-28] MEDS: Menthol/Methyl Salicylate 85 GM Tube TOP SCH (10:22)
[2016-06-28] MEDS: CHOLECALCIFEROL 5000 UNIT PO SCH (10:22)
[2016-06-28] MEDS: CONJUGATED ESTROGENS TOP SCH (10:23)
[2016-06-28] MEDS: [UNRECOGNIZED DRUG - OTHER] TOP SCH (10:23)
[2016-06-28] MEDS: Acetaminophen 500 MG Tab PO PRN (10:23)
[2016-06-28] MEDS: ZINC GLUCONATE PO SCH (18:43)
[2016-06-28] MEDS: CALCIUM CARBONATE PO SCH (18:43)
[2016-06-28] MEDS: MAGNESIUM OXIDE PO SCH (18:43)
[2016-06-28] MEDS: OMEGA FISH OIL PO SCH (18:43)
[2016-06-28] MEDS: [UNRECOGNIZED DRUG - OTHER] PO SCH (18:43)
[2016-06-29] MEDS: Menthol/Methyl Salicylate 85 GM Tube TOP SCH ×2 (00:30→09:04)
[2016-06-29] MEDS: LEVOTHYROXINE 75 MCG PO SCH (06:52)
[2016-06-29] MEDS: Clobetasol 0.05% Crm 30 GM Tube TOP SCH (09:01)
[2016-06-29] MEDS: CHOLECALCIFEROL 5000 UNIT PO SCH (09:02)
[2016-06-29] MEDS: UBIDECARENONE 100 MG PO SCH ×2 (09:02→18:37)
[2016-06-29] MEDS: DABIGATRAN 150 MG PO SCH ×2 (09:03→18:37)
[2016-06-29] MEDS: Acetaminophen 500 MG Tab PO PRN (09:03)
[2016-06-29] MEDS: ZINC GLUCONATE PO SCH (18:37)
[2016-06-29] MEDS: [UNRECOGNIZED DRUG - OTHER] PO SCH (18:37)
[2016-06-29] MEDS: MAGNESIUM OXIDE PO SCH (18:37)
[2016-06-29] MEDS: CALCIUM CARBONATE PO SCH (18:37)
[2016-06-29] MEDS: OMEGA FISH OIL PO SCH (18:37)
[2016-06-30] MEDS: Menthol/Methyl Salicylate 85 GM Tube TOP SCH ×3 (02:09→20:59)
[2016-06-30] MEDS: LEVOTHYROXINE 75 MCG PO SCH (07:01)
[2016-06-30] MEDS: DABIGATRAN 150 MG PO SCH ×2 (10:18→18:03)
[2016-06-30] MEDS: UBIDECARENONE 100 MG PO SCH ×2 (10:19→18:03)
[2016-06-30] MEDS: Acetaminophen 500 MG Tab PO PRN (10:20)
[2016-06-30] MEDS: CHOLECALCIFEROL 5000 UNIT PO SCH (10:20)
[2016-06-30] MEDS: Clobetasol 0.05% Crm 30 GM Tube TOP SCH (10:22)
[2016-06-30] MEDS: [UNRECOGNIZED DRUG - OTHER] PO SCH (18:03)
[2016-06-30] MEDS: MAGNESIUM OXIDE PO SCH (18:03)
[2016-06-30] MEDS: ZINC GLUCONATE PO SCH (18:03)
[2016-06-30] MEDS: CALCIUM CARBONATE PO SCH (18:03)
[2016-06-30] MEDS: OMEGA FISH OIL PO SCH (18:04)
[2016-06-30] MEDS: Betamethasone Dipropionate/Clotrimazole 0.05-1% Crm 15 GM Tube TOP SCH (20:59)
[2016-07-01] MEDS: LEVOTHYROXINE 75 MCG PO SCH (06:39)
[2016-07-01] MEDS: Acetaminophen 500 MG Tab PO PRN (10:32)
[2016-07-01] MEDS: DABIGATRAN 150 MG PO SCH ×2 (10:32→18:12)
[2016-07-01] MEDS: CONJUGATED ESTROGENS TOP SCH (10:33)
[2016-07-01] MEDS: UBIDECARENONE 100 MG PO SCH ×2 (10:33→18:12)
[2016-07-01] MEDS: [UNRECOGNIZED DRUG - OTHER] TOP SCH (10:33)
[2016-07-01] MEDS: CHOLECALCIFEROL 5000 UNIT PO SCH (10:33)
[2016-07-01] MEDS: Clobetasol 0.05% Crm 30 GM Tube TOP SCH (10:33)
[2016-07-01] MEDS: Menthol/Methyl Salicylate 85 GM Tube TOP SCH (10:34)
[2016-07-01] MEDS: MAGNESIUM OXIDE PO SCH (18:12)
[2016-07-01] MEDS: CALCIUM CARBONATE PO SCH (18:12)
[2016-07-01] MEDS: ZINC GLUCONATE PO SCH (18:12)
[2016-07-01] MEDS: OMEGA FISH OIL PO SCH (18:13)
[2016-07-01] MEDS: [UNRECOGNIZED DRUG - OTHER] PO SCH (18:13)
[2016-07-02] MEDS: Menthol/Methyl Salicylate 85 GM Tube TOP SCH ×3 (02:56→22:43)
[2016-07-02] MEDS: LEVOTHYROXINE 75 MCG PO SCH (06:34)
[2016-07-02] MEDS: UBIDECARENONE 100 MG PO SCH ×2 (09:47→18:30)
[2016-07-02] MEDS: CHOLECALCIFEROL 5000 UNIT PO SCH (09:47)
[2016-07-02] MEDS: DABIGATRAN 150 MG PO SCH ×2 (09:47→18:31)
[2016-07-02] MEDS: Clobetasol 0.05% Crm 30 GM Tube TOP SCH (09:48)
[2016-07-02] MEDS: Acetaminophen 500 MG Tab PO PRN (09:49)
[2016-07-02] MEDS: [UNRECOGNIZED DRUG - OTHER] PO SCH (18:30)
[2016-07-02] MEDS: ZINC GLUCONATE PO SCH (18:31)
[2016-07-02] MEDS: CALCIUM CARBONATE PO SCH (18:31)
[2016-07-02] MEDS: MAGNESIUM OXIDE PO SCH (18:31)
[2016-07-02] MEDS: OMEGA FISH OIL PO SCH (18:31)
[2016-07-02] MEDS: Betamethasone Dipropionate/Clotrimazole 0.05-1% Crm 15 GM Tube TOP SCH (22:43)
[2016-07-03] MEDS: LEVOTHYROXINE 75 MCG PO SCH (06:08)
[2016-07-03] MEDS: Clobetasol 0.05% Crm 30 GM Tube TOP SCH (09:41)
[2016-07-03] MEDS: CHOLECALCIFEROL 5000 UNIT PO SCH (09:42)
[2016-07-03] MEDS: Acetaminophen 500 MG Tab PO PRN (09:43)
[2016-07-03] MEDS: UBIDECARENONE 100 MG PO SCH ×2 (09:43→18:31)
[2016-07-03] MEDS: DABIGATRAN 150 MG PO SCH ×2 (09:43→18:31)
[2016-07-03] MEDS: Menthol/Methyl Salicylate 85 GM Tube TOP SCH (10:06)
[2016-07-03] MEDS: [UNRECOGNIZED DRUG - OTHER] PO SCH (18:30)
[2016-07-03] MEDS: MAGNESIUM OXIDE PO SCH (18:31)
[2016-07-03] MEDS: CALCIUM CARBONATE PO SCH (18:31)
[2016-07-03] MEDS: ZINC GLUCONATE PO SCH (18:31)
[2016-07-03] MEDS: OMEGA FISH OIL PO SCH (18:31)
[2016-07-04] MEDS: Menthol/Methyl Salicylate 85 GM Tube TOP SCH ×3 (03:44→23:12)
[2016-07-04] MEDS: LEVOTHYROXINE 75 MCG PO SCH (06:30)
[2016-07-04] MEDS: CONJUGATED ESTROGENS TOP SCH (10:31)
[2016-07-04] MEDS: [UNRECOGNIZED DRUG - OTHER] TOP SCH (10:31)
[2016-07-04] MEDS: DABIGATRAN 150 MG PO SCH ×2 (10:35→18:37)
[2016-07-04] MEDS: CHOLECALCIFEROL 5000 UNIT PO SCH (10:35)
[2016-07-04] MEDS: Clobetasol 0.05% Crm 30 GM Tube TOP SCH (10:35)
[2016-07-04] MEDS: UBIDECARENONE 100 MG PO SCH ×2 (10:35→18:37)
[2016-07-04] MEDS: Acetaminophen 500 MG Tab PO PRN (10:36)
[2016-07-04] MEDS: [UNRECOGNIZED DRUG - OTHER] PO SCH (18:37)
[2016-07-04] MEDS: MAGNESIUM OXIDE PO SCH (18:37)
[2016-07-04] MEDS: CALCIUM CARBONATE PO SCH (18:37)
[2016-07-04] MEDS: OMEGA FISH OIL PO SCH (18:37)
[2016-07-04] MEDS: ZINC GLUCONATE PO SCH (18:37)
[2016-07-04] MEDS: Betamethasone Dipropionate/Clotrimazole 0.05-1% Crm 15 GM Tube TOP SCH (23:12)
[2016-07-05] MEDS: DABIGATRAN 150 MG PO SCH ×2 (10:01→19:36)
[2016-07-05] MEDS: CHOLECALCIFEROL 5000 UNIT PO SCH (10:02)
[2016-07-05] MEDS: UBIDECARENONE 100 MG PO SCH ×2 (10:02→19:36)
[2016-07-05] MEDS: Clobetasol 0.05% Crm 30 GM Tube TOP SCH (10:03)
[2016-07-05] MEDS: Menthol/Methyl Salicylate 85 GM Tube TOP SCH ×3 (10:03→21:09)
[2016-07-05] MEDS: Acetaminophen 500 MG Tab PO PRN ×2 (10:03→16:54)
[2016-07-05] MEDS: MAGNESIUM OXIDE PO SCH (19:36)
[2016-07-05] MEDS: ZINC GLUCONATE PO SCH (19:36)
[2016-07-05] MEDS: CALCIUM CARBONATE PO SCH (19:36)
[2016-07-05] MEDS: OMEGA FISH OIL PO SCH (19:36)
[2016-07-05] MEDS: [UNRECOGNIZED DRUG - OTHER] PO SCH (19:37)
[2016-07-06] MEDS: LEVOTHYROXINE 75 MCG PO SCH (06:51)
[2016-07-06] MEDS: DABIGATRAN 150 MG PO SCH ×2 (09:29→18:24)
[2016-07-06] MEDS: CHOLECALCIFEROL 5000 UNIT PO SCH (09:30)
[2016-07-06] MEDS: UBIDECARENONE 100 MG PO SCH ×2 (09:30→18:25)
[2016-07-06] MEDS: Clobetasol 0.05% Crm 30 GM Tube TOP SCH (09:31)
[2016-07-06] MEDS: Menthol/Methyl Salicylate 85 GM Tube TOP SCH ×2 (09:32→23:00)
[2016-07-06] MEDS: OMEGA FISH OIL PO SCH (18:00)
[2016-07-06] MEDS: ZINC GLUCONATE PO SCH (18:23)
[2016-07-06] MEDS: MAGNESIUM OXIDE PO SCH (18:23)
[2016-07-06] MEDS: CALCIUM CARBONATE PO SCH (18:23)
[2016-07-06] MEDS: [UNRECOGNIZED DRUG - OTHER] PO SCH (18:24)
[2016-07-07] MEDS: LEVOTHYROXINE 75 MCG PO SCH (06:10)
[2016-07-07] MEDS: CONJUGATED ESTROGENS TOP SCH (10:25)
[2016-07-07] MEDS: [UNRECOGNIZED DRUG - OTHER] TOP SCH (10:25)
[2016-07-07] MEDS: Clobetasol 0.05% Crm 30 GM Tube TOP SCH (10:27)
[2016-07-07] MEDS: Acetaminophen 500 MG Tab PO PRN (10:31)
[2016-07-07] MEDS: Menthol/Methyl Salicylate 85 GM Tube TOP SCH ×2 (10:32→22:56)
[2016-07-07] MEDS: CHOLECALCIFEROL 5000 UNIT PO SCH (10:32)
[2016-07-07] MEDS: UBIDECARENONE 100 MG PO SCH ×2 (10:32→18:19)
[2016-07-07] MEDS: DABIGATRAN 150 MG PO SCH ×2 (10:32→18:20)
[2016-07-07] MEDS: [UNRECOGNIZED DRUG - OTHER] PO SCH (18:19)
[2016-07-07] MEDS: OMEGA FISH OIL PO SCH (18:19)
[2016-07-07] MEDS: MAGNESIUM OXIDE PO SCH (18:20)
[2016-07-07] MEDS: ZINC GLUCONATE PO SCH (18:20)
[2016-07-07] MEDS: CALCIUM CARBONATE PO SCH (18:20)
[2016-07-07] MEDS: Betamethasone Dipropionate/Clotrimazole 0.05-1% Crm 15 GM Tube TOP SCH (22:57)
[2016-07-08] MEDS: LEVOTHYROXINE 75 MCG PO SCH (06:10)
[2016-07-08] MEDS: UBIDECARENONE 100 MG PO SCH ×2 (09:43→18:12)
[2016-07-08] MEDS: DABIGATRAN 150 MG PO SCH ×2 (09:43→18:11)
[2016-07-08] MEDS: CHOLECALCIFEROL 5000 UNIT PO SCH (09:44)
[2016-07-08] MEDS: Clobetasol 0.05% Crm 30 GM Tube TOP SCH (09:44)
[2016-07-08] MEDS: Menthol/Methyl Salicylate 85 GM Tube TOP SCH ×2 (09:45→21:56)
[2016-07-08] MEDS: Acetaminophen 500 MG Tab PO PRN (09:46)
[2016-07-08] MEDS: ZINC GLUCONATE PO SCH (18:11)
[2016-07-08] MEDS: CALCIUM CARBONATE PO SCH (18:11)
[2016-07-08] MEDS: OMEGA FISH OIL PO SCH (18:11)
[2016-07-08] MEDS: MAGNESIUM OXIDE PO SCH (18:11)
[2016-07-08] MEDS: [UNRECOGNIZED DRUG - OTHER] PO SCH (18:12)
[2016-07-09] MEDS: LEVOTHYROXINE 75 MCG PO SCH (06:24)
[2016-07-09] MEDS: CHOLECALCIFEROL 5000 UNIT PO SCH (10:33)
[2016-07-09] MEDS: DABIGATRAN 150 MG PO SCH ×2 (10:34→18:03)
[2016-07-09] MEDS: Acetaminophen 500 MG Tab PO PRN (10:34)
[2016-07-09] MEDS: UBIDECARENONE 100 MG PO SCH ×2 (10:34→18:04)
[2016-07-09] MEDS: Clobetasol 0.05% Crm 30 GM Tube TOP SCH (10:35)
[2016-07-09] MEDS: OMEGA FISH OIL PO SCH (18:04)
[2016-07-09] MEDS: MAGNESIUM OXIDE PO SCH (18:04)
[2016-07-09] MEDS: ZINC GLUCONATE PO SCH (18:04)
[2016-07-09] MEDS: [UNRECOGNIZED DRUG - OTHER] PO SCH (18:04)
[2016-07-09] MEDS: CALCIUM CARBONATE PO SCH (18:04)
[2016-07-09] MEDS: Betamethasone Dipropionate/Clotrimazole 0.05-1% Crm 15 GM Tube TOP SCH (23:04)
[2016-07-10] MEDS: LEVOTHYROXINE 75 MCG PO SCH (06:10)
[2016-07-10] MEDS: DABIGATRAN 150 MG PO SCH ×2 (10:27→21:32)
[2016-07-10] MEDS: Acetaminophen 500 MG Tab PO PRN (10:27)
[2016-07-10] MEDS: UBIDECARENONE 100 MG PO SCH ×2 (10:28→21:29)
[2016-07-10] MEDS: CHOLECALCIFEROL 5000 UNIT PO SCH (10:28)
[2016-07-10] MEDS: Clobetasol 0.05% Crm 30 GM Tube TOP SCH (10:29)
[2016-07-10] MEDS: CONJUGATED ESTROGENS TOP SCH (10:30)
[2016-07-10] MEDS: [UNRECOGNIZED DRUG - OTHER] TOP SCH (10:30)
[2016-07-10] MEDS: MAGNESIUM OXIDE PO SCH (21:29)
[2016-07-10] MEDS: ZINC GLUCONATE PO SCH (21:29)
[2016-07-10] MEDS: CALCIUM CARBONATE PO SCH (21:29)
[2016-07-10] MEDS: OMEGA FISH OIL PO SCH (21:30)
[2016-07-10] MEDS: [UNRECOGNIZED DRUG - OTHER] PO SCH (21:31)
[2016-07-11] MEDS: LEVOTHYROXINE 75 MCG PO SCH (07:47)
[2016-07-11] MEDS: UBIDECARENONE 100 MG PO SCH ×2 (09:44→18:04)
[2016-07-11] MEDS: CHOLECALCIFEROL 5000 UNIT PO SCH (09:44)
[2016-07-11] MEDS: DABIGATRAN 150 MG PO SCH ×2 (09:44→18:05)
[2016-07-11] MEDS: Clobetasol 0.05% Crm 30 GM Tube TOP SCH (09:45)
[2016-07-11] MEDS: Acetaminophen 500 MG Tab PO PRN ×2 (09:45→18:09)
[2016-07-11] MEDS: OMEGA FISH OIL PO SCH (18:04)
[2016-07-11] MEDS: CALCIUM CARBONATE PO SCH (18:04)
[2016-07-11] MEDS: ZINC GLUCONATE PO SCH (18:04)
[2016-07-11] MEDS: [UNRECOGNIZED DRUG - OTHER] PO SCH (18:04)
[2016-07-11] MEDS: MAGNESIUM OXIDE PO SCH (18:04)
[2016-07-11] MEDS: Betamethasone Dipropionate/Clotrimazole 0.05-1% Crm 15 GM Tube TOP SCH (21:56)
[2016-07-12] MEDS: DABIGATRAN 150 MG PO SCH ×2 (09:29→18:09)
[2016-07-12] MEDS: UBIDECARENONE 100 MG PO SCH ×2 (09:35→18:09)
[2016-07-12] MEDS: CHOLECALCIFEROL 5000 UNIT PO SCH (09:35)
[2016-07-12] MEDS: Clobetasol 0.05% Crm 30 GM Tube TOP SCH (09:35)
[2016-07-12] MEDS: Acetaminophen 500 MG Tab PO PRN (09:36)
[2016-07-12] MEDS: Menthol/Methyl Salicylate 85 GM Tube TOP PRN (09:36)
--- NOTE | 2016-07-12 10:11 | PCM.PN ---
- General Info Date of Service: 07/12/16 Admission Dx/Problem (Free Text): History: I was asked to see patient this morning because she has had a change in her condition. Normally she has been able to walk to the bathroom by herself, has been quite stable over the year or so that she has lived here. Today she is mildly hypertensive, still alert and oriented but C/O feeling lightheaded when she goes to the bathroom. No actual syncope. She denies any cough, congestion , chest pain or other pain and no dyspnea. She denies any spinning sensation. She has been on Pradaxa since discovery of her chronic atrial fibrillation a few years back, this discovery precipitated by weakness and lightheadedness. - Patient Data Vitals - most recent: Last Vital Signs Temp 36.2 C 07/12/16 09:47 Pulse 71 07/12/16 09:47 Resp 16 07/12/16 09:47 BP 149/78 H 07/12/16 09:47 Pulse Ox 96 07/12/16 09:47 Weight - most recent: 78.471 kg Med Orders - Current: Current Medications Acetaminophen (Tylenol Extra Strength) 1,000 mg PO Q6H PRN PRN Reason: Pain Last Admin: 07/12/16 09:36 Dose: 1,000 mg Carbamide Perox/Anhydrous Glycerin (Debrox 6.5% Otic Soln) 0 ml EARLF DAILY PRN PRN Reason: Other Last Admin: 03/13/16 18:14 Dose: 15 ml Clobetasol Propionate (Clobetasol 0.05%) 0 gm TOP DAILY@1000 [facility] Last Admin: 07/12/16 09:35 Dose: 1 applicful Methyl Salicylate (Icy Hot Cream) 0 gm TOP BID@1000,2200 PRN PRN Reason: Pain Last Admin: 07/12/16 09:36 Dose: 1 applic Multivitamins/Minerals (Thera M Plus) 1 tab PO BEDTIME@1900 [facility] Last Admin: 07/11/16 18:04 Dose: 1 tab Ubidecarenone [Co Q- 10] 100 Mg*Own Supply* 100 mg PO BID@1000,1900 [facility] Last Admin: 07/12/16 09:35 Dose: 100 mg Discontinued Medications Acetaminophen (Tylenol Extra Strength) 500 mg PO Q4H PRN PRN Reason: pain Last Admin: 01/22/16 09:45 Dose: 500 mg Acetaminophen (Tylenol Arthritis Pain) 650 mg PO Q8H PRN PRN Reason: Pain Last Admin: 06/17/16 09:30 Dose: 650 mg Betamethasone/Clotrimazole (Lotrisone) 0 gm TOP BEDTIME [facility] Stop: 02/11/16 22:00 Last Admin: 02/11/16 23:16 Dose: 1 applic Betamethasone/Clotrimazole (Lotrisone) 0 gm TOP MoWeFr [facility] Last Admin: 03/04/16 00:26 Dose: Not Given Betamethasone/Clotrimazole (Lotrisone) 0 gm TOP MoWeFr@2200 [facility] Last Admin: 04/15/16 00:08 Dose: Not Given Clobetasol Propionate (Clobetasol 0.05%) 0 gm TOP BID [facility] Stop: 10/26/15 21:12 Last Admin: 10/13/15 13:26 Dose: 1 applic Clobetasol Propionate (Clobetasol 0.05%) 0 gm TOP BID@0800,1900 [facility] Last Admin: 10/29/15 09:23 Dose: 1 applic Clobetasol Propionate (Clobetasol 0.05%) 1 gm TOP BID@0800,1900 PRN PRN Reason: Itching Last Admin: 01/13/16 08:59 Dose: 1 applic Clobetasol Propionate (Clobetasol 0.05%) 1 gm TOP BID@1000,1900 PRN PRN Reason: Itching Last Admin: 06/19/16 04:04 Dose: 1 applic Clobetasol Propionate (Clobetasol 0.05%) 1 gm TOP DAILY@1000 [facility] Last Admin: 07/02/16 09:48 Dose: 1 applic Dabigatran (Pradaxa) 0 mg PO BID [facility] Last Admin: 05/16/15 09:06 Dose: 150 mg Influenza Virus Vaccine (Fluvirin 2014-) 45 mcg IM .ONCE ONE Stop: 05/15/15 15:28 Last Admin: 05/15/15 16:14 Dose: 45 mcg Influenza Virus Vaccine (Fluzone High Dose 2015-) 180 mcg IM .ONCE ONE Stop: 05/12/16 10:01 Last Admin: 05/12/16 15:00 Dose: 180 mcg Levothyroxine Sodium (Levothyroxine) 75 mcg PO ACBREAKFAST [facility] Last Admin: 06/11/15 06:13 Dose: 75 mcg Levothyroxine Sodium (Levothyroxine) 75 mcg PO MOTUWETHFRSA@07 [facility] Last Admin: 06/23/15 06:47 Dose: 75 mcg Levothyroxine Sodium (Levothyroxine) 75 mcg PO SuMoTuWeThFr@07 [facility] Stop: 06/24/15 09:15 Levothyroxine Sodium (Levothyroxine) 75 mcg PO SuMoTuWeThFr@07 [facility] Last Admin: 01/18/16 06:23 Dose: 75 mcg Levothyroxine Sodium (Levothyroxine) 75 mcg PO SuMoTuWeThFr@09 [facility] Levothyroxine Sodium (Levothyroxine) 75 mcg PO SuMoTuWeThFr@10 [facility] Last Admin: 01/18/16 10:11 Dose: Not Given Levothyroxine Sodium (Levothyroxine) 75 mcg PO SuMoTuWeThFr@0700 [facility] Last Admin: 02/07/16 06:10 Dose: 75 mcg Methyl Salicylate (Icy Hot Cream) 1 gm TOP ASDIRECTED PRN PRN Reason: Pain Last Admin: 02/14/16 09:57 Dose: 1 applic Methyl Salicylate (Icy Hot Cream) 0 gm TOP BID [facility] Last Admin: 06/18/16 10:38 Dose: 1 applic Methyl Salicylate (Icy Hot Cream) 0 gm TOP BID@1000,2000 [facility] Last Admin: 06/27/16 20:34 Dose: Not Given Methyl Salicylate (Icy Hot Cream) 0 gm TOP BID@1000,2200 [facility] Last Admin: 07/08/16 21:56 Dose: Not Given Metoprolol Tartrate (Lopressor) 12.5 mg PO DAILY [facility] Last Admin: 06/24/15 08:20 Dose: 12.5 mg Miscellaneous Medication (Calcium Carb/Mag Ox/Zinc Gluc [Wwfjbpx-Wgjookums-Einf] ) 1 each PO BEDTIME [facility] Last Admin: 10/08/15 18:04 Dose: 1 each Miscellaneous Medication (Cholecalciferol (Vitamin D3) [Vitamin D3]) 5,000 unit PO DAILY [facility] Last Admin: 01/18/16 09:36 Dose: 5,000 unit Miscellaneous Medication (Metoprolol Tartrate [Metoprolol Tartrate]) 12.5 mg PO DAILY [facility] Last Admin: 05/17/15 08:42 Dose: 12.5 mg Miscellaneous Medication ([place]-3/Dha/Epa/Fish Oil [[place]-3 Fish Oil 1,200 Mg Sfgl]) 1,200 mg PO BEDTIME [facility] Last Admin: 10/08/15 18:04 Dose: 1,200 mg Miscellaneous Medication (Ubidecarenone [Co Q-10]) 100 mg PO BID [facility] Last Admin: 10/08/15 18:05 Dose: 100 mg Miscellaneous Medication (Nf Drug) 1 each PO BID [facility] Last Admin: 08/07/15 09:51 Dose: 1 each Miscellaneous Medication (Nf Drug) 0 each PO BID [facility] Last Admin: 10/08/15 18:05 Dose: 1 each Miscellaneous Medication (Ubidecarenone [Co Q-10]) 100 mg PO BID@0800,1900 [facility] Last Admin: 01/18/16 09:36 Dose: 100 mg Miscellaneous Medication (Nf Drug) 0 each PO BID@0800,1900 [facility] Last Admin: 01/18/16 09:35 Dose: 1 each Miscellaneous Medication (Nf Drug) 1 each TOP Q3D [facility] Last Admin: 12/14/15 09:20 Dose: 1 each Miscellaneous Medication (Nf Drug) 0 each TOP Q3D [facility] Last Admin: 01/16/16 10:44 Dose: 1 each Multivitamins/Minerals (Thera M Plus) 1 tab PO BEDTIME [facility] Last Admin: 10/08/15 18:05 Dose: 1 tab - Exam Physical Findings Comments:: Exam: -Alert and oriented, converses about community affairs eagerly and is cheerful -BP just over 160 -Heart irregular, cannot tell if it is atrial fib or not because there are some spells of quite regular rhythm, then goes irregular again. No murmur -No facial droop or weakness in arms or legs -No carotid bruit -No ankle edema - Problem List Review Problem List Initiated/Reviewed/Updated: Yes - Assessment Assessment:: Impression: -Spell of lightheadedness and mild hypertension -Unremarkable -Mentally she seems fine and not distressed by this - Plan Plan:: Plan: Observe, get help on going to bathroom until we are sure she is OK again
[2016-07-12] MEDS: ZINC GLUCONATE PO SCH (18:09)
[2016-07-12] MEDS: CALCIUM CARBONATE PO SCH (18:09)
[2016-07-12] MEDS: MAGNESIUM OXIDE PO SCH (18:09)
[2016-07-12] MEDS: [UNRECOGNIZED DRUG - OTHER] PO SCH (18:09)
[2016-07-12] MEDS: OMEGA FISH OIL PO SCH (18:10)
[2016-07-13] MEDS: LEVOTHYROXINE 75 MCG PO SCH (06:31)
[2016-07-13] MEDS: DABIGATRAN 150 MG PO SCH ×2 (09:09→18:23)
[2016-07-13] MEDS: UBIDECARENONE 100 MG PO SCH ×2 (09:10→18:24)
[2016-07-13] MEDS: CHOLECALCIFEROL 5000 UNIT PO SCH (09:10)
[2016-07-13] MEDS: Acetaminophen 500 MG Tab PO PRN (09:10)
[2016-07-13] MEDS: Clobetasol 0.05% Crm 30 GM Tube TOP SCH (09:11)
[2016-07-13] MEDS: CONJUGATED ESTROGENS TOP SCH (09:11)
[2016-07-13] MEDS: [UNRECOGNIZED DRUG - OTHER] TOP SCH (09:11)
[2016-07-13] MEDS: [UNRECOGNIZED DRUG - OTHER] PO SCH (18:23)
[2016-07-13] MEDS: MAGNESIUM OXIDE PO SCH (18:24)
[2016-07-13] MEDS: CALCIUM CARBONATE PO SCH (18:24)
[2016-07-13] MEDS: OMEGA FISH OIL PO SCH (18:24)
[2016-07-13] MEDS: ZINC GLUCONATE PO SCH (18:24)
[2016-07-14] MEDS: LEVOTHYROXINE 75 MCG PO SCH (06:06)
--- NOTE | 2016-07-14 09:15 | PN ---
Progress Note for EMILY SHEETS Date: 07/13/2016 Room #: SUBJECTIVE: This is an 86-year-old, who began feeling unwell the evening of 07/11. Normally, she can help take herself to the bathroom, but she just did not feel sure of herself, needed some more help. She felt wore out. She felt dizzy, but not like the room spinning, but more like weak like she could go down. She does have a bad left leg, right below the knee area in her muscles and tendon. She also has pretty significant osteoarthritis. The patient has a longstanding history of atrial fibrillation. She has been on Pradaxa. She does not take any rate controlling agents. Otherwise, she had lab work checked the end of May, all looked quite well. She felt well the next day in the afternoon, but was still feeling a little weak in the morning, so was assessed by Dr. Dennison. She had more frequent vital sign monitoring, blood pressures were running actually a little bit higher. Again this morning, the nurses did mention to me on rounds, I recommended more frequent vitals and telemetry monitoring with an EKG. EKG did show atrial fibrillation with slow ventricular response. Telemetry had shown up to 3.5 second pauses, but again she was not having any symptoms during this time, and was feeling better. She had rates down into the mid 30s; for the majority, she had sinus adeline in the 50s. OBJECTIVE: Vital Signs: Temperature 97.3, pulse 46, blood pressure 132/51, respiratory rate 18, O2 of 95% on room air. General: She is in no acute distress. Heart: Irregularly irregular with murmur noted. Lungs: Sounds were clear to auscultation bilaterally without crackles or wheezes. Extremities: Warm and dry. No edema. Mental Status: She is alert and orientated x3. ASSESSMENT: 1. Atrial fibrillation with bradycardia and up to 3.5-second pauses. She is feeling well now. I discussed with her we will continue telemetry monitoring, if she is not feeling well, she should notify the nurses. We did discuss even the potential for pacemaker and she stated if it needed to be done then she would be agreeable to that. For now, she is also on Pradaxa, we will continue with the same. 2. Hypothyroidism, treated. Recent TSH around 1.5. No reason for dose change. 3. Central hypertension, controlled. 4. Atrophic vaginitis. 5. Osteoarthritis with left knee pain. 6. Mild thrombocytopenia. PLAN: At this point, we will see how she does. If her symptoms become more persistent, then I will repeat lab work. We will monitor her with telemetry for now. MKA: 07/13/2016 21:04:16 MODL: 07/13/2016 23:32:38 /[id number]
[2016-07-14] MEDS: CHOLECALCIFEROL 5000 UNIT PO SCH (10:16)
[2016-07-14] MEDS: Acetaminophen 500 MG Tab PO PRN (10:17)
[2016-07-14] MEDS: UBIDECARENONE 100 MG PO SCH ×2 (10:17→18:10)
[2016-07-14] MEDS: DABIGATRAN 150 MG PO SCH ×2 (10:18→18:11)
[2016-07-14] MEDS: Clobetasol 0.05% Crm 30 GM Tube TOP SCH (10:19)
[2016-07-14] MEDS: CALCIUM CARBONATE PO SCH (18:10)
[2016-07-14] MEDS: OMEGA FISH OIL PO SCH (18:10)
[2016-07-14] MEDS: ZINC GLUCONATE PO SCH (18:10)
[2016-07-14] MEDS: [UNRECOGNIZED DRUG - OTHER] PO SCH (18:10)
[2016-07-14] MEDS: MAGNESIUM OXIDE PO SCH (18:10)
[2016-07-14] MEDS: Betamethasone Dipropionate/Clotrimazole 0.05-1% Crm 15 GM Tube TOP SCH (22:51)
[2016-07-15] MEDS: LEVOTHYROXINE 75 MCG PO SCH (06:03)
[2016-07-15] MEDS: Clobetasol 0.05% Crm 30 GM Tube TOP SCH (10:17)
[2016-07-15] MEDS: UBIDECARENONE 100 MG PO SCH ×2 (10:19→18:11)
[2016-07-15] MEDS: CHOLECALCIFEROL 5000 UNIT PO SCH (10:19)
[2016-07-15] MEDS: DABIGATRAN 150 MG PO SCH ×2 (10:20→18:11)
[2016-07-15] MEDS: Acetaminophen 500 MG Tab PO PRN (10:26)
--- NOTE | 2016-07-15 17:27 | PCM.SN ---
- Free Text/Narrative Note: Patient had no further events of feeling week. She had no pauses longer than 3 seconds. She continued to be in a. fib. Telemetry d/c today.
[2016-07-15] MEDS: MAGNESIUM OXIDE PO SCH (18:11)
[2016-07-15] MEDS: ZINC GLUCONATE PO SCH (18:11)
[2016-07-15] MEDS: CALCIUM CARBONATE PO SCH (18:11)
[2016-07-15] MEDS: OMEGA FISH OIL PO SCH (18:11)
[2016-07-15] MEDS: [UNRECOGNIZED DRUG - OTHER] PO SCH (18:11)
[2016-07-16] MEDS: LEVOTHYROXINE 75 MCG PO SCH ×2 (05:52→11:26)
[2016-07-16] MEDS: DABIGATRAN 150 MG PO SCH ×2 (10:36→18:25)
[2016-07-16] MEDS: UBIDECARENONE 100 MG PO SCH ×2 (10:37→18:25)
[2016-07-16] MEDS: CHOLECALCIFEROL 5000 UNIT PO SCH (10:37)
[2016-07-16] MEDS: CONJUGATED ESTROGENS TOP SCH (10:38)
[2016-07-16] MEDS: [UNRECOGNIZED DRUG - OTHER] TOP SCH (10:38)
[2016-07-16] MEDS: Clobetasol 0.05% Crm 30 GM Tube TOP SCH (10:39)
[2016-07-16] MEDS: Acetaminophen 500 MG Tab PO PRN (10:40)
[2016-07-16] MEDS: OMEGA FISH OIL PO SCH (18:25)
[2016-07-16] MEDS: ZINC GLUCONATE PO SCH (18:25)
[2016-07-16] MEDS: [UNRECOGNIZED DRUG - OTHER] PO SCH (18:25)
[2016-07-16] MEDS: CALCIUM CARBONATE PO SCH (18:25)
[2016-07-16] MEDS: MAGNESIUM OXIDE PO SCH (18:25)
[2016-07-16] MEDS: Betamethasone Dipropionate/Clotrimazole 0.05-1% Crm 15 GM Tube TOP SCH (23:10)
[2016-07-17] MEDS: LEVOTHYROXINE 75 MCG PO SCH (06:29)
[2016-07-17] MEDS: UBIDECARENONE 100 MG PO SCH ×2 (10:16→18:47)
[2016-07-17] MEDS: CHOLECALCIFEROL 5000 UNIT PO SCH (10:16)
[2016-07-17] MEDS: DABIGATRAN 150 MG PO SCH ×2 (10:16→18:47)
[2016-07-17] MEDS: Clobetasol 0.05% Crm 30 GM Tube TOP SCH (10:17)
[2016-07-17] MEDS: Acetaminophen 500 MG Tab PO PRN (10:17)
[2016-07-17] MEDS: OMEGA FISH OIL PO SCH (18:46)
[2016-07-17] MEDS: ZINC GLUCONATE PO SCH (18:47)
[2016-07-17] MEDS: MAGNESIUM OXIDE PO SCH (18:47)
[2016-07-17] MEDS: CALCIUM CARBONATE PO SCH (18:47)
[2016-07-17] MEDS: [UNRECOGNIZED DRUG - OTHER] PO SCH (18:48)
[2016-07-18] MEDS: LEVOTHYROXINE 75 MCG PO SCH (06:33)
[2016-07-18] MEDS: CHOLECALCIFEROL 5000 UNIT PO SCH (09:39)
[2016-07-18] MEDS: UBIDECARENONE 100 MG PO SCH ×2 (09:39→18:22)
[2016-07-18] MEDS: Acetaminophen 500 MG Tab PO PRN (09:39)
[2016-07-18] MEDS: DABIGATRAN 150 MG PO SCH ×2 (09:40→18:22)
[2016-07-18] MEDS: Clobetasol 0.05% Crm 30 GM Tube TOP SCH (09:42)
[2016-07-18] MEDS: [UNRECOGNIZED DRUG - OTHER] PO SCH (18:22)
[2016-07-18] MEDS: ZINC GLUCONATE PO SCH (18:23)
[2016-07-18] MEDS: CALCIUM CARBONATE PO SCH (18:23)
[2016-07-18] MEDS: MAGNESIUM OXIDE PO SCH (18:23)
[2016-07-18] MEDS: OMEGA FISH OIL PO SCH (18:23)
[2016-07-18] MEDS: Betamethasone Dipropionate/Clotrimazole 0.05-1% Crm 15 GM Tube TOP SCH (22:24)
[2016-07-19] MEDS: CHOLECALCIFEROL 5000 UNIT PO SCH (10:11)
[2016-07-19] MEDS: UBIDECARENONE 100 MG PO SCH ×2 (10:11→18:20)
[2016-07-19] MEDS: DABIGATRAN 150 MG PO SCH ×2 (10:11→18:20)
[2016-07-19] MEDS: [UNRECOGNIZED DRUG - OTHER] TOP SCH (10:12)
[2016-07-19] MEDS: CONJUGATED ESTROGENS TOP SCH (10:12)
[2016-07-19] MEDS: Acetaminophen 500 MG Tab PO PRN (10:12)
[2016-07-19] MEDS: Clobetasol 0.05% Crm 30 GM Tube TOP SCH (10:13)
[2016-07-19] MEDS: OMEGA FISH OIL PO SCH (18:19)
[2016-07-19] MEDS: [UNRECOGNIZED DRUG - OTHER] PO SCH (18:19)
[2016-07-19] MEDS: MAGNESIUM OXIDE PO SCH (18:20)
[2016-07-19] MEDS: ZINC GLUCONATE PO SCH (18:20)
[2016-07-19] MEDS: CALCIUM CARBONATE PO SCH (18:20)
[2016-07-20] MEDS: LEVOTHYROXINE 75 MCG PO SCH (06:23)
[2016-07-20] MEDS: DABIGATRAN 150 MG PO SCH ×2 (09:23→18:51)
[2016-07-20] MEDS: Clobetasol 0.05% Crm 30 GM Tube TOP SCH (09:24)
[2016-07-20] MEDS: Acetaminophen 500 MG Tab PO PRN (09:24)
[2016-07-20] MEDS: UBIDECARENONE 100 MG PO SCH ×2 (09:24→18:51)
[2016-07-20] MEDS: CHOLECALCIFEROL 5000 UNIT PO SCH (09:24)
[2016-07-20] MEDS: CALCIUM CARBONATE PO SCH (18:51)
[2016-07-20] MEDS: ZINC GLUCONATE PO SCH (18:51)
[2016-07-20] MEDS: [UNRECOGNIZED DRUG - OTHER] PO SCH (18:51)
[2016-07-20] MEDS: MAGNESIUM OXIDE PO SCH (18:51)
[2016-07-20] MEDS: OMEGA FISH OIL PO SCH (18:52)
[2016-07-21] MEDS: LEVOTHYROXINE 75 MCG PO SCH (06:13)
[2016-07-21] MEDS: UBIDECARENONE 100 MG PO SCH ×2 (09:46→18:04)
[2016-07-21] MEDS: CHOLECALCIFEROL 5000 UNIT PO SCH (09:46)
[2016-07-21] MEDS: Clobetasol 0.05% Crm 30 GM Tube TOP SCH (09:47)
[2016-07-21] MEDS: Acetaminophen 500 MG Tab PO PRN (09:47)
[2016-07-21] MEDS: DABIGATRAN 150 MG PO SCH ×2 (09:47→18:04)
[2016-07-21] MEDS: [UNRECOGNIZED DRUG - OTHER] PO SCH (18:04)
[2016-07-21] MEDS: OMEGA FISH OIL PO SCH (18:04)
[2016-07-21] MEDS: ZINC GLUCONATE PO SCH (18:05)
[2016-07-21] MEDS: MAGNESIUM OXIDE PO SCH (18:05)
[2016-07-21] MEDS: CALCIUM CARBONATE PO SCH (18:05)
[2016-07-21] MEDS: Betamethasone Dipropionate/Clotrimazole 0.05-1% Crm 15 GM Tube TOP SCH (23:10)
[2016-07-22] MEDS: LEVOTHYROXINE 75 MCG PO SCH (06:25)
[2016-07-22] MEDS: DABIGATRAN 150 MG PO SCH ×2 (09:21→18:24)
[2016-07-22] MEDS: Acetaminophen 500 MG Tab PO PRN ×2 (09:21→16:56)
[2016-07-22] MEDS: CONJUGATED ESTROGENS TOP SCH (09:22)
[2016-07-22] MEDS: UBIDECARENONE 100 MG PO SCH ×2 (09:22→18:24)
[2016-07-22] MEDS: CHOLECALCIFEROL 5000 UNIT PO SCH (09:22)
[2016-07-22] MEDS: [UNRECOGNIZED DRUG - OTHER] TOP SCH (09:22)
[2016-07-22] MEDS: Clobetasol 0.05% Crm 30 GM Tube TOP SCH (09:22)
[2016-07-22] MEDS: CALCIUM CARBONATE PO SCH (18:24)
[2016-07-22] MEDS: [UNRECOGNIZED DRUG - OTHER] PO SCH (18:24)
[2016-07-22] MEDS: MAGNESIUM OXIDE PO SCH (18:24)
[2016-07-22] MEDS: ZINC GLUCONATE PO SCH (18:24)
[2016-07-22] MEDS: OMEGA FISH OIL PO SCH (18:24)
[2016-07-23] MEDS: LEVOTHYROXINE 75 MCG PO SCH (06:33)
[2016-07-23] MEDS: CHOLECALCIFEROL 5000 UNIT PO SCH (09:48)
[2016-07-23] MEDS: DABIGATRAN 150 MG PO SCH ×2 (09:48→18:15)
[2016-07-23] MEDS: UBIDECARENONE 100 MG PO SCH ×2 (09:48→18:14)
[2016-07-23] MEDS: Clobetasol 0.05% Crm 30 GM Tube TOP SCH (09:49)
[2016-07-23] MEDS: Acetaminophen 500 MG Tab PO PRN ×2 (09:49→14:56)
[2016-07-23] MEDS: ZINC GLUCONATE PO SCH (18:14)
[2016-07-23] MEDS: OMEGA FISH OIL PO SCH (18:14)
[2016-07-23] MEDS: [UNRECOGNIZED DRUG - OTHER] PO SCH (18:14)
[2016-07-23] MEDS: CALCIUM CARBONATE PO SCH (18:14)
[2016-07-23] MEDS: MAGNESIUM OXIDE PO SCH (18:14)
[2016-07-23] MEDS: Betamethasone Dipropionate/Clotrimazole 0.05-1% Crm 15 GM Tube TOP SCH (23:17)
[2016-07-24] MEDS: LEVOTHYROXINE 75 MCG PO SCH (06:34)
[2016-07-24] MEDS: DABIGATRAN 150 MG PO SCH ×2 (09:28→18:10)
[2016-07-24] MEDS: CHOLECALCIFEROL 5000 UNIT PO SCH (09:28)
[2016-07-24] MEDS: UBIDECARENONE 100 MG PO SCH ×2 (09:29→18:11)
[2016-07-24] MEDS: Acetaminophen 500 MG Tab PO PRN (09:29)
[2016-07-24] MEDS: Clobetasol 0.05% Crm 30 GM Tube TOP SCH (09:29)
[2016-07-24] MEDS: MAGNESIUM OXIDE PO SCH (18:11)
[2016-07-24] MEDS: ZINC GLUCONATE PO SCH (18:11)
[2016-07-24] MEDS: OMEGA FISH OIL PO SCH (18:11)
[2016-07-24] MEDS: [UNRECOGNIZED DRUG - OTHER] PO SCH (18:11)
[2016-07-24] MEDS: CALCIUM CARBONATE PO SCH (18:11)
[2016-07-25] MEDS: LEVOTHYROXINE 75 MCG PO SCH (06:27)
[2016-07-25] MEDS: UBIDECARENONE 100 MG PO SCH ×2 (09:32→19:34)
[2016-07-25] MEDS: Acetaminophen 500 MG Tab PO PRN (09:32)
[2016-07-25] MEDS: DABIGATRAN 150 MG PO SCH ×2 (09:32→19:34)
[2016-07-25] MEDS: CHOLECALCIFEROL 5000 UNIT PO SCH (09:32)
[2016-07-25] MEDS: Clobetasol 0.05% Crm 30 GM Tube TOP SCH (09:36)
[2016-07-25] MEDS: CONJUGATED ESTROGENS TOP SCH (09:37)
[2016-07-25] MEDS: [UNRECOGNIZED DRUG - OTHER] TOP SCH (09:37)
[2016-07-25] MEDS: OMEGA FISH OIL PO SCH (19:34)
[2016-07-25] MEDS: MAGNESIUM OXIDE PO SCH (19:34)
[2016-07-25] MEDS: CALCIUM CARBONATE PO SCH (19:34)
[2016-07-25] MEDS: ZINC GLUCONATE PO SCH (19:34)
[2016-07-25] MEDS: [UNRECOGNIZED DRUG - OTHER] PO SCH (19:35)
[2016-07-25] MEDS: Betamethasone Dipropionate/Clotrimazole 0.05-1% Crm 15 GM Tube TOP SCH (23:17)
[2016-07-26] MEDS: DABIGATRAN 150 MG PO SCH ×2 (09:42→18:20)
[2016-07-26] MEDS: Acetaminophen 500 MG Tab PO PRN ×2 (09:43→14:05)
[2016-07-26] MEDS: UBIDECARENONE 100 MG PO SCH ×2 (09:43→18:20)
[2016-07-26] MEDS: CHOLECALCIFEROL 5000 UNIT PO SCH (09:43)
[2016-07-26] MEDS: Clobetasol 0.05% Crm 30 GM Tube TOP SCH (09:44)
[2016-07-26] MEDS: ZINC GLUCONATE PO SCH (18:20)
[2016-07-26] MEDS: CALCIUM CARBONATE PO SCH (18:20)
[2016-07-26] MEDS: OMEGA FISH OIL PO SCH (18:20)
[2016-07-26] MEDS: MAGNESIUM OXIDE PO SCH (18:20)
[2016-07-26] MEDS: [UNRECOGNIZED DRUG - OTHER] PO SCH (18:20)
[2016-07-27] MEDS: LEVOTHYROXINE 75 MCG PO SCH ×2 (05:51→06:34)
[2016-07-27] MEDS: Clobetasol 0.05% Crm 30 GM Tube TOP SCH (10:34)
[2016-07-27] MEDS: Acetaminophen 500 MG Tab PO PRN ×2 (10:34→17:24)
[2016-07-27] MEDS: CHOLECALCIFEROL 5000 UNIT PO SCH (10:36)
[2016-07-27] MEDS: UBIDECARENONE 100 MG PO SCH ×2 (10:36→18:00)
[2016-07-27] MEDS: DABIGATRAN 150 MG PO SCH ×2 (10:36→18:00)
[2016-07-27] MEDS: OMEGA FISH OIL PO SCH (18:00)
[2016-07-27] MEDS: CALCIUM CARBONATE PO SCH (18:01)
[2016-07-27] MEDS: [UNRECOGNIZED DRUG - OTHER] PO SCH (18:01)
[2016-07-27] MEDS: MAGNESIUM OXIDE PO SCH (18:01)
[2016-07-27] MEDS: ZINC GLUCONATE PO SCH (18:01)
[2016-07-28] MEDS: LEVOTHYROXINE 75 MCG PO SCH (06:55)
[2016-07-28] MEDS: UBIDECARENONE 100 MG PO SCH ×2 (09:24→18:24)
[2016-07-28] MEDS: Acetaminophen 500 MG Tab PO PRN (09:25)
[2016-07-28] MEDS: DABIGATRAN 150 MG PO SCH ×2 (09:25→18:23)
[2016-07-28] MEDS: Clobetasol 0.05% Crm 30 GM Tube TOP SCH (09:26)
[2016-07-28] MEDS: CONJUGATED ESTROGENS TOP SCH (09:26)
[2016-07-28] MEDS: [UNRECOGNIZED DRUG - OTHER] TOP SCH (09:26)
[2016-07-28] MEDS: CHOLECALCIFEROL 5000 UNIT PO SCH (09:26)
[2016-07-28] MEDS: ZINC GLUCONATE PO SCH (18:24)
[2016-07-28] MEDS: OMEGA FISH OIL PO SCH (18:24)
[2016-07-28] MEDS: [UNRECOGNIZED DRUG - OTHER] PO SCH (18:24)
[2016-07-28] MEDS: CALCIUM CARBONATE PO SCH (18:24)
[2016-07-28] MEDS: MAGNESIUM OXIDE PO SCH (18:24)
[2016-07-28] MEDS: Betamethasone Dipropionate/Clotrimazole 0.05-1% Crm 15 GM Tube TOP SCH (23:31)
[2016-07-29] MEDS: LEVOTHYROXINE 75 MCG PO SCH (07:51)
[2016-07-29] MEDS: Acetaminophen 500 MG Tab PO PRN ×2 (10:00→17:38)
[2016-07-29] MEDS: CHOLECALCIFEROL 5000 UNIT PO SCH (10:00)
[2016-07-29] MEDS: UBIDECARENONE 100 MG PO SCH ×2 (10:00→18:05)
[2016-07-29] MEDS: DABIGATRAN 150 MG PO SCH ×2 (10:00→18:04)
[2016-07-29] MEDS: Clobetasol 0.05% Crm 30 GM Tube TOP SCH (10:01)
[2016-07-29] MEDS: [UNRECOGNIZED DRUG - OTHER] PO SCH ×2 (17:38→18:04)
[2016-07-29] MEDS: CALCIUM CARBONATE PO SCH ×2 (17:39→18:04)
[2016-07-29] MEDS: MAGNESIUM OXIDE PO SCH ×2 (17:39→18:04)
[2016-07-29] MEDS: ZINC GLUCONATE PO SCH ×2 (17:39→18:04)
[2016-07-29] MEDS: OMEGA FISH OIL PO SCH (18:05)
[2016-07-30] MEDS: LEVOTHYROXINE 75 MCG PO SCH (06:15)
[2016-07-30] MEDS: DABIGATRAN 150 MG PO SCH ×3 (08:59→18:06)
[2016-07-30] MEDS: CHOLECALCIFEROL 5000 UNIT PO SCH (08:59)
[2016-07-30] MEDS: Clobetasol 0.05% Crm 30 GM Tube TOP SCH (09:00)
[2016-07-30] MEDS: UBIDECARENONE 100 MG PO SCH ×3 (09:00→18:06)
[2016-07-30] MEDS: Acetaminophen 500 MG Tab PO PRN ×2 (09:01→17:13)
[2016-07-30] MEDS: MAGNESIUM OXIDE PO SCH ×2 (17:11→18:06)
[2016-07-30] MEDS: ZINC GLUCONATE PO SCH ×2 (17:11→18:06)
[2016-07-30] MEDS: CALCIUM CARBONATE PO SCH ×2 (17:11→18:06)
[2016-07-30] MEDS: OMEGA FISH OIL PO SCH ×2 (17:11→18:06)
[2016-07-30] MEDS: [UNRECOGNIZED DRUG - OTHER] PO SCH ×2 (17:12→18:06)
[2016-07-30] MEDS: Betamethasone Dipropionate/Clotrimazole 0.05-1% Crm 15 GM Tube TOP SCH (21:54)
[2016-07-31] MEDS: LEVOTHYROXINE 75 MCG PO SCH (06:00)
[2016-07-31] MEDS: Clobetasol 0.05% Crm 30 GM Tube TOP SCH (10:31)
[2016-07-31] MEDS: CONJUGATED ESTROGENS TOP SCH (10:34)
[2016-07-31] MEDS: [UNRECOGNIZED DRUG - OTHER] TOP SCH (10:34)
[2016-07-31] MEDS: UBIDECARENONE 100 MG PO SCH ×2 (10:35→18:10)
[2016-07-31] MEDS: DABIGATRAN 150 MG PO SCH ×2 (10:35→18:10)
[2016-07-31] MEDS: CHOLECALCIFEROL 5000 UNIT PO SCH (10:35)
[2016-07-31] MEDS: Acetaminophen 500 MG Tab PO PRN (10:36)
[2016-07-31] MEDS: CALCIUM CARBONATE PO SCH (18:10)
[2016-07-31] MEDS: OMEGA FISH OIL PO SCH (18:10)
[2016-07-31] MEDS: ZINC GLUCONATE PO SCH (18:10)
[2016-07-31] MEDS: MAGNESIUM OXIDE PO SCH (18:10)
[2016-07-31] MEDS: [UNRECOGNIZED DRUG - OTHER] PO SCH (18:10)
[2016-08-01] MEDS: LEVOTHYROXINE 75 MCG PO SCH (06:40)
[2016-08-01] MEDS: Acetaminophen 500 MG Tab PO PRN (09:57)
[2016-08-01] MEDS: CHOLECALCIFEROL 5000 UNIT PO SCH (09:58)
[2016-08-01] MEDS: UBIDECARENONE 100 MG PO SCH ×2 (09:59→18:02)
[2016-08-01] MEDS: Clobetasol 0.05% Crm 30 GM Tube TOP SCH (10:00)
[2016-08-01] MEDS: DABIGATRAN 150 MG PO SCH ×2 (10:01→18:04)
[2016-08-01] MEDS: [UNRECOGNIZED DRUG - OTHER] PO SCH (18:02)
[2016-08-01] MEDS: Dextran 70/Hypromellose/PF Ophth Soln 0.9 ML UD EYEBOTH SCH ×2 (18:02→20:03)
[2016-08-01] MEDS: MAGNESIUM OXIDE PO SCH (18:03)
[2016-08-01] MEDS: ZINC GLUCONATE PO SCH (18:03)
[2016-08-01] MEDS: OMEGA FISH OIL PO SCH (18:03)
[2016-08-01] MEDS: CALCIUM CARBONATE PO SCH (18:03)
--- NOTE | 2016-08-01 21:44 | PCM.SN ---
- Free Text/Narrative Note: She had some eye irritation this AM, both eyes, it is better now. Kind of itchy and maybe a little crusty. Vision is ok. She sent a picture to her son he ordered some erythromycin drops but I don't feel its an infection so I am going to have her use regular eye drops and if her eye gets red or painful we can start the erythromycin drops. This was discussed with Shantel and the nurse.
[2016-08-01] MEDS: Betamethasone Dipropionate/Clotrimazole 0.05-1% Crm 15 GM Tube TOP SCH (23:18)
[2016-08-02] MEDS: Clobetasol 0.05% Crm 30 GM Tube TOP SCH (10:02)
[2016-08-02] MEDS: CHOLECALCIFEROL 5000 UNIT PO SCH (10:04)
[2016-08-02] MEDS: UBIDECARENONE 100 MG PO SCH ×2 (10:05→18:03)
[2016-08-02] MEDS: DABIGATRAN 150 MG PO SCH ×2 (10:06→18:05)
[2016-08-02] MEDS: Acetaminophen 500 MG Tab PO PRN (10:07)
[2016-08-02] MEDS: Dextran 70/Hypromellose/PF Ophth Soln 0.9 ML UD EYEBOTH SCH ×2 (10:17→19:21)
[2016-08-02] MEDS: CALCIUM CARBONATE PO SCH (18:04)
[2016-08-02] MEDS: ZINC GLUCONATE PO SCH (18:04)
[2016-08-02] MEDS: [UNRECOGNIZED DRUG - OTHER] PO SCH (18:04)
[2016-08-02] MEDS: MAGNESIUM OXIDE PO SCH (18:04)
[2016-08-02] MEDS: OMEGA FISH OIL PO SCH (18:05)
[2016-08-03] MEDS: LEVOTHYROXINE 75 MCG PO SCH (06:05)
[2016-08-03] MEDS: Dextran 70/Hypromellose/PF Ophth Soln 0.9 ML UD EYEBOTH SCH ×2 (10:06→19:26)
[2016-08-03] MEDS: DABIGATRAN 150 MG PO SCH ×2 (10:07→18:39)
[2016-08-03] MEDS: CHOLECALCIFEROL 5000 UNIT PO SCH (10:08)
[2016-08-03] MEDS: UBIDECARENONE 100 MG PO SCH ×2 (10:09→18:40)
[2016-08-03] MEDS: Acetaminophen 500 MG Tab PO PRN (10:10)
[2016-08-03] MEDS: Clobetasol 0.05% Crm 30 GM Tube TOP SCH (10:15)
[2016-08-03] MEDS: [UNRECOGNIZED DRUG - OTHER] TOP SCH (10:16)
[2016-08-03] MEDS: CONJUGATED ESTROGENS TOP SCH (10:16)
[2016-08-03] MEDS: OMEGA FISH OIL PO SCH (18:40)
[2016-08-03] MEDS: [UNRECOGNIZED DRUG - OTHER] PO SCH (18:41)
[2016-08-03] MEDS: MAGNESIUM OXIDE PO SCH (18:41)
[2016-08-03] MEDS: ZINC GLUCONATE PO SCH (18:41)
[2016-08-03] MEDS: CALCIUM CARBONATE PO SCH (18:41)
[2016-08-04] MEDS: LEVOTHYROXINE 75 MCG PO SCH (06:26)
[2016-08-04] MEDS: DABIGATRAN 150 MG PO SCH ×2 (09:53→17:59)
[2016-08-04] MEDS: Clobetasol 0.05% Crm 30 GM Tube TOP SCH (09:53)
[2016-08-04] MEDS: UBIDECARENONE 100 MG PO SCH ×2 (09:54→17:59)
[2016-08-04] MEDS: CHOLECALCIFEROL 5000 UNIT PO SCH (09:54)
[2016-08-04] MEDS: Acetaminophen 500 MG Tab PO PRN (09:55)
[2016-08-04] MEDS: Dextran 70/Hypromellose/PF Ophth Soln 0.9 ML UD EYEBOTH SCH ×2 (09:55→18:03)
[2016-08-04] MEDS: OMEGA FISH OIL PO SCH (17:59)
[2016-08-04] MEDS: ZINC GLUCONATE PO SCH (18:00)
[2016-08-04] MEDS: CALCIUM CARBONATE PO SCH (18:00)
[2016-08-04] MEDS: MAGNESIUM OXIDE PO SCH (18:00)
[2016-08-04] MEDS: [UNRECOGNIZED DRUG - OTHER] PO SCH (18:00)
[2016-08-04] MEDS: Betamethasone Dipropionate/Clotrimazole 0.05-1% Crm 15 GM Tube TOP SCH (23:12)
[2016-08-04] MEDS: Menthol/Methyl Salicylate 85 GM Tube TOP PRN (23:13)
[2016-08-05] MEDS: LEVOTHYROXINE 75 MCG PO SCH ×2 (06:20→10:36)
[2016-08-05] MEDS: CHOLECALCIFEROL 5000 UNIT PO SCH (10:27)
[2016-08-05] MEDS: DABIGATRAN 150 MG PO SCH ×2 (10:27→18:22)
[2016-08-05] MEDS: UBIDECARENONE 100 MG PO SCH ×2 (10:28→18:24)
[2016-08-05] MEDS: Clobetasol 0.05% Crm 30 GM Tube TOP SCH (10:32)
[2016-08-05] MEDS: Acetaminophen 500 MG Tab PO PRN (10:33)
[2016-08-05] MEDS: Dextran 70/Hypromellose/PF Ophth Soln 0.9 ML UD EYEBOTH SCH ×2 (10:33→18:25)
[2016-08-05] MEDS: OMEGA FISH OIL PO SCH (18:21)
[2016-08-05] MEDS: CALCIUM CARBONATE PO SCH (18:21)
[2016-08-05] MEDS: ZINC GLUCONATE PO SCH (18:21)
[2016-08-05] MEDS: MAGNESIUM OXIDE PO SCH (18:21)
[2016-08-05] MEDS: [UNRECOGNIZED DRUG - OTHER] PO SCH (18:22)
[2016-08-06] MEDS: LEVOTHYROXINE 75 MCG PO SCH (06:27)
[2016-08-06] MEDS: DABIGATRAN 150 MG PO SCH ×2 (09:29→18:02)
[2016-08-06] MEDS: Acetaminophen 500 MG Tab PO PRN (09:30)
[2016-08-06] MEDS: UBIDECARENONE 100 MG PO SCH ×2 (09:30→18:03)
[2016-08-06] MEDS: CHOLECALCIFEROL 5000 UNIT PO SCH (09:30)
[2016-08-06] MEDS: [UNRECOGNIZED DRUG - OTHER] TOP SCH (09:31)
[2016-08-06] MEDS: CONJUGATED ESTROGENS TOP SCH (09:31)
[2016-08-06] MEDS: Dextran 70/Hypromellose/PF Ophth Soln 0.9 ML UD EYEBOTH SCH ×2 (09:31→18:04)
[2016-08-06] MEDS: Clobetasol 0.05% Crm 30 GM Tube TOP SCH (09:31)
[2016-08-06] MEDS: OMEGA FISH OIL PO SCH (18:02)
[2016-08-06] MEDS: [UNRECOGNIZED DRUG - OTHER] PO SCH (18:03)
[2016-08-06] MEDS: ZINC GLUCONATE PO SCH (18:03)
[2016-08-06] MEDS: MAGNESIUM OXIDE PO SCH (18:03)
[2016-08-06] MEDS: CALCIUM CARBONATE PO SCH (18:03)
[2016-08-06] MEDS: Betamethasone Dipropionate/Clotrimazole 0.05-1% Crm 15 GM Tube TOP SCH (23:27)
[2016-08-07] MEDS: LEVOTHYROXINE 75 MCG PO SCH (06:42)
[2016-08-07] MEDS: DABIGATRAN 150 MG PO SCH ×2 (09:32→17:59)
[2016-08-07] MEDS: UBIDECARENONE 100 MG PO SCH ×2 (09:32→17:59)
[2016-08-07] MEDS: CHOLECALCIFEROL 5000 UNIT PO SCH (09:32)
[2016-08-07] MEDS: Acetaminophen 500 MG Tab PO PRN (09:33)
[2016-08-07] MEDS: Dextran 70/Hypromellose/PF Ophth Soln 0.9 ML UD EYEBOTH SCH ×2 (09:34→18:00)
[2016-08-07] MEDS: Clobetasol 0.05% Crm 30 GM Tube TOP SCH (09:34)
[2016-08-07] MEDS: OMEGA FISH OIL PO SCH (17:59)
[2016-08-07] MEDS: CALCIUM CARBONATE PO SCH (18:00)
[2016-08-07] MEDS: MAGNESIUM OXIDE PO SCH (18:00)
[2016-08-07] MEDS: [UNRECOGNIZED DRUG - OTHER] PO SCH (18:00)
[2016-08-07] MEDS: ZINC GLUCONATE PO SCH (18:00)
[2016-08-08] MEDS: LEVOTHYROXINE 75 MCG PO SCH ×2 (05:28→06:02)
[2016-08-08] MEDS: DABIGATRAN 150 MG PO SCH ×2 (09:36→18:13)
[2016-08-08] MEDS: CHOLECALCIFEROL 5000 UNIT PO SCH (09:37)
[2016-08-08] MEDS: Clobetasol 0.05% Crm 30 GM Tube TOP SCH (09:38)
[2016-08-08] MEDS: Acetaminophen 500 MG Tab PO PRN (09:39)
[2016-08-08] MEDS: UBIDECARENONE 100 MG PO SCH ×2 (09:40→18:11)
[2016-08-08] MEDS: Dextran 70/Hypromellose/PF Ophth Soln 0.9 ML UD EYEBOTH SCH ×2 (09:41→18:32)
[2016-08-08] MEDS: [UNRECOGNIZED DRUG - OTHER] PO SCH (18:12)
[2016-08-08] MEDS: OMEGA FISH OIL PO SCH (18:12)
[2016-08-08] MEDS: MAGNESIUM OXIDE PO SCH (18:13)
[2016-08-08] MEDS: CALCIUM CARBONATE PO SCH (18:13)
[2016-08-08] MEDS: ZINC GLUCONATE PO SCH (18:13)
[2016-08-08] MEDS: Betamethasone Dipropionate/Clotrimazole 0.05-1% Crm 15 GM Tube TOP SCH (23:02)
[2016-08-09] MEDS: CHOLECALCIFEROL 5000 UNIT PO SCH (09:50)
[2016-08-09] MEDS: Acetaminophen 500 MG Tab PO PRN ×2 (09:51→16:35)
[2016-08-09] MEDS: DABIGATRAN 150 MG PO SCH ×2 (09:51→18:57)
[2016-08-09] MEDS: UBIDECARENONE 100 MG PO SCH ×2 (09:51→18:59)
[2016-08-09] MEDS: [UNRECOGNIZED DRUG - OTHER] TOP SCH (09:52)
[2016-08-09] MEDS: Clobetasol 0.05% Crm 30 GM Tube TOP SCH (09:52)
[2016-08-09] MEDS: CONJUGATED ESTROGENS TOP SCH (09:52)
[2016-08-09] MEDS: Dextran 70/Hypromellose/PF Ophth Soln 0.9 ML UD EYEBOTH SCH ×2 (10:15→19:00)
[2016-08-09] MEDS: OMEGA FISH OIL PO SCH (18:59)
[2016-08-09] MEDS: [UNRECOGNIZED DRUG - OTHER] PO SCH (18:59)
[2016-08-09] MEDS: MAGNESIUM OXIDE PO SCH (18:59)
[2016-08-09] MEDS: ZINC GLUCONATE PO SCH (18:59)
[2016-08-09] MEDS: CALCIUM CARBONATE PO SCH (18:59)
[2016-08-10] MEDS: LEVOTHYROXINE 75 MCG PO SCH (06:05)
[2016-08-10] MEDS: Dextran 70/Hypromellose/PF Ophth Soln 0.9 ML UD EYEBOTH SCH ×2 (10:14→18:26)
[2016-08-10] MEDS: UBIDECARENONE 100 MG PO SCH ×2 (10:14→18:25)
[2016-08-10] MEDS: DABIGATRAN 150 MG PO SCH ×2 (10:14→18:24)
[2016-08-10] MEDS: Clobetasol 0.05% Crm 30 GM Tube TOP SCH (10:15)
[2016-08-10] MEDS: CHOLECALCIFEROL 5000 UNIT PO SCH (10:15)
[2016-08-10] MEDS: Acetaminophen 500 MG Tab PO PRN (10:16)
[2016-08-10] MEDS: [UNRECOGNIZED DRUG - OTHER] PO SCH (18:25)
[2016-08-10] MEDS: ZINC GLUCONATE PO SCH (18:25)
[2016-08-10] MEDS: MAGNESIUM OXIDE PO SCH (18:25)
[2016-08-10] MEDS: CALCIUM CARBONATE PO SCH (18:25)
[2016-08-10] MEDS: OMEGA FISH OIL PO SCH (18:26)
[2016-08-11] MEDS: LEVOTHYROXINE 75 MCG PO SCH (06:32)
[2016-08-11] MEDS: DABIGATRAN 150 MG PO SCH ×2 (10:13→18:19)
[2016-08-11] MEDS: CHOLECALCIFEROL 5000 UNIT PO SCH (10:14)
[2016-08-11] MEDS: UBIDECARENONE 100 MG PO SCH ×2 (10:14→18:18)
[2016-08-11] MEDS: Acetaminophen 500 MG Tab PO PRN ×2 (10:15→18:20)
[2016-08-11] MEDS: Clobetasol 0.05% Crm 30 GM Tube TOP SCH (10:16)
[2016-08-11] MEDS: Dextran 70/Hypromellose/PF Ophth Soln 0.9 ML UD EYEBOTH SCH ×2 (10:17→18:19)
[2016-08-11] MEDS: MAGNESIUM OXIDE PO SCH (18:18)
[2016-08-11] MEDS: [UNRECOGNIZED DRUG - OTHER] PO SCH (18:18)
[2016-08-11] MEDS: ZINC GLUCONATE PO SCH (18:18)
[2016-08-11] MEDS: CALCIUM CARBONATE PO SCH (18:18)
[2016-08-11] MEDS: OMEGA FISH OIL PO SCH (18:19)
[2016-08-11] MEDS: Betamethasone Dipropionate/Clotrimazole 0.05-1% Crm 15 GM Tube TOP SCH (23:03)
[2016-08-12] MEDS: LEVOTHYROXINE 75 MCG PO SCH (06:11)
[2016-08-12] MEDS: UBIDECARENONE 100 MG PO SCH ×2 (09:21→18:24)
[2016-08-12] MEDS: CHOLECALCIFEROL 5000 UNIT PO SCH (09:21)
[2016-08-12] MEDS: Clobetasol 0.05% Crm 30 GM Tube TOP SCH (09:22)
[2016-08-12] MEDS: Dextran 70/Hypromellose/PF Ophth Soln 0.9 ML UD EYEBOTH SCH ×2 (09:22→18:25)
[2016-08-12] MEDS: Acetaminophen 500 MG Tab PO PRN (09:22)
[2016-08-12] MEDS: [UNRECOGNIZED DRUG - OTHER] TOP SCH (09:23)
[2016-08-12] MEDS: CONJUGATED ESTROGENS TOP SCH (09:23)
[2016-08-12] MEDS: DABIGATRAN 150 MG PO SCH ×2 (12:13→18:25)
[2016-08-12] MEDS: MAGNESIUM OXIDE PO SCH (18:24)
[2016-08-12] MEDS: ZINC GLUCONATE PO SCH (18:24)
[2016-08-12] MEDS: CALCIUM CARBONATE PO SCH (18:24)
[2016-08-12] MEDS: OMEGA FISH OIL PO SCH (18:25)
[2016-08-12] MEDS: [UNRECOGNIZED DRUG - OTHER] PO SCH (18:25)
[2016-08-13] MEDS: LEVOTHYROXINE 75 MCG PO SCH (08:52)
[2016-08-13] MEDS: CHOLECALCIFEROL 5000 UNIT PO SCH (10:12)
[2016-08-13] MEDS: DABIGATRAN 150 MG PO SCH ×2 (10:13→18:29)
[2016-08-13] MEDS: UBIDECARENONE 100 MG PO SCH ×2 (10:13→18:30)
[2016-08-13] MEDS: Clobetasol 0.05% Crm 30 GM Tube TOP SCH (10:14)
[2016-08-13] MEDS: Dextran 70/Hypromellose/PF Ophth Soln 0.9 ML UD EYEBOTH SCH ×2 (10:14→18:31)
[2016-08-13] MEDS: Acetaminophen 500 MG Tab PO PRN (10:15)
[2016-08-13] MEDS: MAGNESIUM OXIDE PO SCH (18:30)
[2016-08-13] MEDS: [UNRECOGNIZED DRUG - OTHER] PO SCH (18:30)
[2016-08-13] MEDS: ZINC GLUCONATE PO SCH (18:30)
[2016-08-13] MEDS: CALCIUM CARBONATE PO SCH (18:30)
[2016-08-13] MEDS: OMEGA FISH OIL PO SCH (18:30)
[2016-08-13] MEDS: Betamethasone Dipropionate/Clotrimazole 0.05-1% Crm 15 GM Tube TOP SCH (22:51)
[2016-08-14] MEDS: LEVOTHYROXINE 75 MCG PO SCH (06:00)
[2016-08-14] MEDS: CHOLECALCIFEROL 5000 UNIT PO SCH (09:30)
[2016-08-14] MEDS: Clobetasol 0.05% Crm 30 GM Tube TOP SCH (09:31)
[2016-08-14] MEDS: UBIDECARENONE 100 MG PO SCH ×2 (09:32→18:24)
[2016-08-14] MEDS: DABIGATRAN 150 MG PO SCH ×2 (09:32→18:26)
[2016-08-14] MEDS: Dextran 70/Hypromellose/PF Ophth Soln 0.9 ML UD EYEBOTH SCH ×2 (09:33→18:27)
[2016-08-14] MEDS: Acetaminophen 500 MG Tab PO PRN (09:36)
[2016-08-14] MEDS: OMEGA FISH OIL PO SCH (18:25)
[2016-08-14] MEDS: MAGNESIUM OXIDE PO SCH (18:25)
[2016-08-14] MEDS: ZINC GLUCONATE PO SCH (18:25)
[2016-08-14] MEDS: CALCIUM CARBONATE PO SCH (18:25)
[2016-08-14] MEDS: [UNRECOGNIZED DRUG - OTHER] PO SCH (18:26)
[2016-08-15] MEDS: LEVOTHYROXINE 75 MCG PO SCH (06:17)
[2016-08-15] MEDS: UBIDECARENONE 100 MG PO SCH ×2 (10:20→17:59)
[2016-08-15] MEDS: CHOLECALCIFEROL 5000 UNIT PO SCH (10:21)
[2016-08-15] MEDS: DABIGATRAN 150 MG PO SCH ×2 (10:21→17:59)
[2016-08-15] MEDS: CONJUGATED ESTROGENS TOP SCH (10:22)
[2016-08-15] MEDS: [UNRECOGNIZED DRUG - OTHER] TOP SCH (10:22)
[2016-08-15] MEDS: Clobetasol 0.05% Crm 30 GM Tube TOP SCH (10:23)
[2016-08-15] MEDS: Dextran 70/Hypromellose/PF Ophth Soln 0.9 ML UD EYEBOTH SCH ×2 (10:30→17:59)
[2016-08-15] MEDS: Acetaminophen 500 MG Tab PO PRN (10:33)
[2016-08-15] MEDS: OMEGA FISH OIL PO SCH (17:59)
[2016-08-15] MEDS: MAGNESIUM OXIDE PO SCH (17:59)
[2016-08-15] MEDS: [UNRECOGNIZED DRUG - OTHER] PO SCH (17:59)
[2016-08-15] MEDS: ZINC GLUCONATE PO SCH (17:59)
[2016-08-15] MEDS: CALCIUM CARBONATE PO SCH (17:59)
[2016-08-15] MEDS: Betamethasone Dipropionate/Clotrimazole 0.05-1% Crm 15 GM Tube TOP SCH (22:57)
[2016-08-15] MEDS: Menthol/Methyl Salicylate 85 GM Tube TOP PRN (22:57)
[2016-08-16] MEDS: UBIDECARENONE 100 MG PO SCH ×2 (09:45→18:04)
[2016-08-16] MEDS: DABIGATRAN 150 MG PO SCH ×2 (09:45→18:04)
[2016-08-16] MEDS: Clobetasol 0.05% Crm 30 GM Tube TOP SCH (09:46)
[2016-08-16] MEDS: Dextran 70/Hypromellose/PF Ophth Soln 0.9 ML UD EYEBOTH SCH ×2 (09:46→18:04)
[2016-08-16] MEDS: CHOLECALCIFEROL 5000 UNIT PO SCH (09:46)
[2016-08-16] MEDS: Acetaminophen 500 MG Tab PO PRN (09:47)
[2016-08-16] MEDS: OMEGA FISH OIL PO SCH (18:04)
[2016-08-16] MEDS: MAGNESIUM OXIDE PO SCH (18:04)
[2016-08-16] MEDS: CALCIUM CARBONATE PO SCH (18:04)
[2016-08-16] MEDS: ZINC GLUCONATE PO SCH (18:04)
[2016-08-16] MEDS: [UNRECOGNIZED DRUG - OTHER] PO SCH (18:04)
[2016-08-17] MEDS: LEVOTHYROXINE 75 MCG PO SCH (06:38)
[2016-08-17] MEDS: UBIDECARENONE 100 MG PO SCH ×2 (09:36→18:42)
[2016-08-17] MEDS: DABIGATRAN 150 MG PO SCH ×2 (09:36→18:41)
[2016-08-17] MEDS: CHOLECALCIFEROL 5000 UNIT PO SCH (09:36)
[2016-08-17] MEDS: Acetaminophen 500 MG Tab PO PRN (09:37)
[2016-08-17] MEDS: Clobetasol 0.05% Crm 30 GM Tube TOP SCH (09:38)
[2016-08-17] MEDS: Dextran 70/Hypromellose/PF Ophth Soln 0.9 ML UD EYEBOTH SCH ×2 (09:47→18:58)
[2016-08-17] MEDS: OMEGA FISH OIL PO SCH (18:41)
[2016-08-17] MEDS: [UNRECOGNIZED DRUG - OTHER] PO SCH (18:41)
[2016-08-17] MEDS: ZINC GLUCONATE PO SCH (18:42)
[2016-08-17] MEDS: MAGNESIUM OXIDE PO SCH (18:42)
[2016-08-17] MEDS: CALCIUM CARBONATE PO SCH (18:42)
[2016-08-18] MEDS: LEVOTHYROXINE 75 MCG PO SCH (06:46)
[2016-08-18] MEDS: UBIDECARENONE 100 MG PO SCH ×2 (10:42→18:22)
[2016-08-18] MEDS: CHOLECALCIFEROL 5000 UNIT PO SCH (10:42)
[2016-08-18] MEDS: Clobetasol 0.05% Crm 30 GM Tube TOP SCH (10:43)
[2016-08-18] MEDS: DABIGATRAN 150 MG PO SCH ×2 (10:43→18:24)
[2016-08-18] MEDS: CONJUGATED ESTROGENS TOP SCH (10:44)
[2016-08-18] MEDS: [UNRECOGNIZED DRUG - OTHER] TOP SCH (10:44)
[2016-08-18] MEDS: Acetaminophen 500 MG Tab PO PRN (10:45)
[2016-08-18] MEDS: Dextran 70/Hypromellose/PF Ophth Soln 0.9 ML UD EYEBOTH SCH ×2 (10:45→18:24)
[2016-08-18] MEDS: MAGNESIUM OXIDE PO SCH (18:23)
[2016-08-18] MEDS: ZINC GLUCONATE PO SCH (18:23)
[2016-08-18] MEDS: OMEGA FISH OIL PO SCH (18:23)
[2016-08-18] MEDS: CALCIUM CARBONATE PO SCH (18:23)
[2016-08-18] MEDS: [UNRECOGNIZED DRUG - OTHER] PO SCH (18:23)
[2016-08-18] MEDS: Betamethasone Dipropionate/Clotrimazole 0.05-1% Crm 15 GM Tube TOP SCH (23:34)
[2016-08-19] MEDS: LEVOTHYROXINE 75 MCG PO SCH ×2 (05:51→10:06)
[2016-08-19] MEDS: UBIDECARENONE 100 MG PO SCH ×2 (10:04→18:02)
[2016-08-19] MEDS: Dextran 70/Hypromellose/PF Ophth Soln 0.9 ML UD EYEBOTH SCH ×2 (10:04→17:59)
[2016-08-19] MEDS: Clobetasol 0.05% Crm 30 GM Tube TOP SCH (10:05)
[2016-08-19] MEDS: CHOLECALCIFEROL 5000 UNIT PO SCH (10:05)
[2016-08-19] MEDS: DABIGATRAN 150 MG PO SCH ×2 (10:05→17:59)
[2016-08-19] MEDS: Acetaminophen 500 MG Tab PO PRN (10:07)
[2016-08-19] MEDS: OMEGA FISH OIL PO SCH (17:59)
[2016-08-19] MEDS: ZINC GLUCONATE PO SCH (17:59)
[2016-08-19] MEDS: CALCIUM CARBONATE PO SCH (17:59)
[2016-08-19] MEDS: MAGNESIUM OXIDE PO SCH (17:59)
[2016-08-19] MEDS: [UNRECOGNIZED DRUG - OTHER] PO SCH (17:59)
[2016-08-20] MEDS: LEVOTHYROXINE 75 MCG PO SCH (06:02)
[2016-08-20] MEDS: DABIGATRAN 150 MG PO SCH ×2 (09:53→18:37)
[2016-08-20] MEDS: UBIDECARENONE 100 MG PO SCH ×2 (09:54→18:37)
[2016-08-20] MEDS: Dextran 70/Hypromellose/PF Ophth Soln 0.9 ML UD EYEBOTH SCH ×2 (09:54→18:38)
[2016-08-20] MEDS: Acetaminophen 500 MG Tab PO PRN (09:54)
[2016-08-20] MEDS: CHOLECALCIFEROL 5000 UNIT PO SCH (09:54)
[2016-08-20] MEDS: Clobetasol 0.05% Crm 30 GM Tube TOP SCH (09:55)
--- NOTE | 2016-08-20 14:05 | PN ---
Progress Note for EMILY SHEETS Date: 08/20/2016 Room #: SUBJECTIVE: An 86-year-old on long-term swing bed for severe osteoarthritis, which affects mobility and her ability to perform her own ADLs. She states she has been doing good. The creams we are using on her bottom have helped. There is no irritation now. She had some episodes of weakness last month, but those totally resolved. She admits today that it could be emotional as they lost a family friend. Otherwise, her breathing has been good. She is not having any pain. Her eye irritation that she had, also cleared up with just over-the- counter drops. No antibiotic drops were needed. OBJECTIVE: Vital Signs: Her temperature is 98.7, her weight is 79.4 kg, pulse 75, blood pressure 138/59, respiratory rate 20, O2 of 96% on room air. General: She is in no acute distress. Heart: Regularly irregular with murmur. Lung: Sounds are clear to auscultation bilaterally without crackles or wheezes. Extremities: Warm and dry. No edema. Mental Status: Alert and orientated x3. ASSESSMENT: 1. Atrial fibrillation. She did have some bradycardia last month, now heart rates have been fine. She is feeling fine. No further monitoring is needed. She will continue her Pradaxa for stroke prevention. 2. Hypothyroidism, treated. 3. Essential hypertension, controlled. 4. Atrophic vaginitis. She has already been seen by [facility]. She is on appropriate treatments. 5. Osteoarthritis. 6. Mild thrombocytopenia. PLAN: At this point, we will continue swing bed cares. She is not due for any lab work. We will evaluate her again next month. MKA: 08/20/2016 13:14:00 MODL: 08/20/2016 13:37:46 /[id number]
[2016-08-20] MEDS: CALCIUM CARBONATE PO SCH (18:36)
[2016-08-20] MEDS: ZINC GLUCONATE PO SCH (18:36)
[2016-08-20] MEDS: MAGNESIUM OXIDE PO SCH (18:36)
[2016-08-20] MEDS: [UNRECOGNIZED DRUG - OTHER] PO SCH (18:38)
[2016-08-20] MEDS: OMEGA FISH OIL PO SCH (18:38)
[2016-08-20] MEDS: Betamethasone Dipropionate/Clotrimazole 0.05-1% Crm 15 GM Tube TOP SCH (22:40)
[2016-08-21] MEDS: LEVOTHYROXINE 75 MCG PO SCH (06:10)
[2016-08-21] MEDS: [UNRECOGNIZED DRUG - OTHER] TOP SCH (10:57)
[2016-08-21] MEDS: CONJUGATED ESTROGENS TOP SCH (10:57)
[2016-08-21] MEDS: Clobetasol 0.05% Crm 30 GM Tube TOP SCH (10:57)
[2016-08-21] MEDS: CHOLECALCIFEROL 5000 UNIT PO SCH (11:04)
[2016-08-21] MEDS: DABIGATRAN 150 MG PO SCH ×2 (11:04→18:44)
[2016-08-21] MEDS: UBIDECARENONE 100 MG PO SCH ×2 (11:04→18:46)
[2016-08-21] MEDS: Dextran 70/Hypromellose/PF Ophth Soln 0.9 ML UD EYEBOTH SCH ×2 (11:05→18:45)
[2016-08-21] MEDS: Acetaminophen 500 MG Tab PO PRN ×2 (11:06→18:49)
[2016-08-21] MEDS: CALCIUM CARBONATE PO SCH (18:43)
[2016-08-21] MEDS: ZINC GLUCONATE PO SCH (18:43)
[2016-08-21] MEDS: MAGNESIUM OXIDE PO SCH (18:43)
[2016-08-21] MEDS: OMEGA FISH OIL PO SCH (18:44)
[2016-08-21] MEDS: [UNRECOGNIZED DRUG - OTHER] PO SCH (18:45)
[2016-08-22] MEDS: LEVOTHYROXINE 75 MCG PO SCH (06:40)
[2016-08-22] MEDS: CHOLECALCIFEROL 5000 UNIT PO SCH (09:28)
[2016-08-22] MEDS: UBIDECARENONE 100 MG PO SCH ×2 (09:28→18:48)
[2016-08-22] MEDS: DABIGATRAN 150 MG PO SCH ×2 (09:29→18:48)
[2016-08-22] MEDS: Acetaminophen 500 MG Tab PO PRN (09:29)
[2016-08-22] MEDS: Clobetasol 0.05% Crm 30 GM Tube TOP SCH (09:30)
[2016-08-22] MEDS: Dextran 70/Hypromellose/PF Ophth Soln 0.9 ML UD EYEBOTH SCH ×2 (09:30→18:47)
[2016-08-22] MEDS: MAGNESIUM OXIDE PO SCH (18:47)
[2016-08-22] MEDS: ZINC GLUCONATE PO SCH (18:47)
[2016-08-22] MEDS: CALCIUM CARBONATE PO SCH (18:47)
[2016-08-22] MEDS: [UNRECOGNIZED DRUG - OTHER] PO SCH (18:47)
[2016-08-22] MEDS: OMEGA FISH OIL PO SCH (18:48)
[2016-08-22] MEDS: Betamethasone Dipropionate/Clotrimazole 0.05-1% Crm 15 GM Tube TOP SCH (23:02)
[2016-08-23] MEDS: Dextran 70/Hypromellose/PF Ophth Soln 0.9 ML UD EYEBOTH SCH ×2 (09:51→18:26)
[2016-08-23] MEDS: DABIGATRAN 150 MG PO SCH ×2 (09:51→18:25)
[2016-08-23] MEDS: Clobetasol 0.05% Crm 30 GM Tube TOP SCH (09:52)
[2016-08-23] MEDS: Acetaminophen 500 MG Tab PO PRN (09:52)
[2016-08-23] MEDS: UBIDECARENONE 100 MG PO SCH ×2 (09:52→18:26)
[2016-08-23] MEDS: CHOLECALCIFEROL 5000 UNIT PO SCH (09:52)
[2016-08-23] MEDS: CALCIUM CARBONATE PO SCH (18:26)
[2016-08-23] MEDS: OMEGA FISH OIL PO SCH (18:26)
[2016-08-23] MEDS: [UNRECOGNIZED DRUG - OTHER] PO SCH (18:26)
[2016-08-23] MEDS: ZINC GLUCONATE PO SCH (18:26)
[2016-08-23] MEDS: MAGNESIUM OXIDE PO SCH (18:26)
[2016-08-24] MEDS: LEVOTHYROXINE 75 MCG PO SCH (06:35)
[2016-08-24] MEDS: Dextran 70/Hypromellose/PF Ophth Soln 0.9 ML UD EYEBOTH SCH ×2 (09:30→18:06)
[2016-08-24] MEDS: DABIGATRAN 150 MG PO SCH ×2 (09:30→18:05)
[2016-08-24] MEDS: UBIDECARENONE 100 MG PO SCH ×2 (09:30→18:06)
[2016-08-24] MEDS: CHOLECALCIFEROL 5000 UNIT PO SCH (09:34)
[2016-08-24] MEDS: Acetaminophen 500 MG Tab PO PRN (09:35)
[2016-08-24] MEDS: CONJUGATED ESTROGENS TOP SCH (09:36)
[2016-08-24] MEDS: [UNRECOGNIZED DRUG - OTHER] TOP SCH (09:36)
[2016-08-24] MEDS: Clobetasol 0.05% Crm 30 GM Tube TOP SCH (09:36)
[2016-08-24] MEDS: MAGNESIUM OXIDE PO SCH (18:05)
[2016-08-24] MEDS: ZINC GLUCONATE PO SCH (18:05)
[2016-08-24] MEDS: CALCIUM CARBONATE PO SCH (18:05)
[2016-08-24] MEDS: OMEGA FISH OIL PO SCH (18:06)
[2016-08-24] MEDS: [UNRECOGNIZED DRUG - OTHER] PO SCH (18:06)
[2016-08-25] MEDS: LEVOTHYROXINE 75 MCG PO SCH (06:53)
[2016-08-25] MEDS: CHOLECALCIFEROL 5000 UNIT PO SCH (09:49)
[2016-08-25] MEDS: UBIDECARENONE 100 MG PO SCH ×2 (09:50→18:23)
[2016-08-25] MEDS: Acetaminophen 500 MG Tab PO PRN ×2 (09:51→18:22)
[2016-08-25] MEDS: Dextran 70/Hypromellose/PF Ophth Soln 0.9 ML UD EYEBOTH SCH ×2 (09:51→18:23)
[2016-08-25] MEDS: DABIGATRAN 150 MG PO SCH ×2 (09:54→18:21)
[2016-08-25] MEDS: Clobetasol 0.05% Crm 30 GM Tube TOP SCH (09:56)
[2016-08-25] MEDS: MAGNESIUM OXIDE PO SCH (18:21)
[2016-08-25] MEDS: CALCIUM CARBONATE PO SCH (18:21)
[2016-08-25] MEDS: ZINC GLUCONATE PO SCH (18:21)
[2016-08-25] MEDS: [UNRECOGNIZED DRUG - OTHER] PO SCH (18:22)
[2016-08-25] MEDS: OMEGA FISH OIL PO SCH (18:22)
[2016-08-25] MEDS: Betamethasone Dipropionate/Clotrimazole 0.05-1% Crm 15 GM Tube TOP SCH (23:04)
[2016-08-25] MEDS: Menthol/Methyl Salicylate 85 GM Tube TOP PRN (23:05)
[2016-08-26] MEDS: LEVOTHYROXINE 75 MCG PO SCH ×2 (05:20→06:32)
[2016-08-26] MEDS: UBIDECARENONE 100 MG PO SCH ×2 (10:03→18:17)
[2016-08-26] MEDS: DABIGATRAN 150 MG PO SCH ×2 (10:04→18:16)
[2016-08-26] MEDS: CHOLECALCIFEROL 5000 UNIT PO SCH (10:05)
[2016-08-26] MEDS: Clobetasol 0.05% Crm 30 GM Tube TOP SCH (10:06)
[2016-08-26] MEDS: Dextran 70/Hypromellose/PF Ophth Soln 0.9 ML UD EYEBOTH SCH ×2 (10:06→18:18)
[2016-08-26] MEDS: Acetaminophen 500 MG Tab PO PRN (10:09)
[2016-08-26] MEDS: ZINC GLUCONATE PO SCH (18:17)
[2016-08-26] MEDS: CALCIUM CARBONATE PO SCH (18:17)
[2016-08-26] MEDS: OMEGA FISH OIL PO SCH (18:17)
[2016-08-26] MEDS: MAGNESIUM OXIDE PO SCH (18:17)
[2016-08-26] MEDS: [UNRECOGNIZED DRUG - OTHER] PO SCH (18:18)
[2016-08-27] MEDS: LEVOTHYROXINE 75 MCG PO SCH ×2 (05:26→06:26)
[2016-08-27] MEDS: UBIDECARENONE 100 MG PO SCH ×2 (10:33→18:15)
[2016-08-27] MEDS: CHOLECALCIFEROL 5000 UNIT PO SCH (10:33)
[2016-08-27] MEDS: Acetaminophen 500 MG Tab PO PRN (10:34)
[2016-08-27] MEDS: Dextran 70/Hypromellose/PF Ophth Soln 0.9 ML UD EYEBOTH SCH ×2 (10:34→18:15)
[2016-08-27] MEDS: Clobetasol 0.05% Crm 30 GM Tube TOP SCH (10:34)
[2016-08-27] MEDS: DABIGATRAN 150 MG PO SCH ×2 (10:34→18:14)
[2016-08-27] MEDS: CONJUGATED ESTROGENS TOP SCH (10:35)
[2016-08-27] MEDS: [UNRECOGNIZED DRUG - OTHER] TOP SCH (10:35)
[2016-08-27] MEDS: ZINC GLUCONATE PO SCH (18:14)
[2016-08-27] MEDS: MAGNESIUM OXIDE PO SCH (18:14)
[2016-08-27] MEDS: CALCIUM CARBONATE PO SCH (18:14)
[2016-08-27] MEDS: [UNRECOGNIZED DRUG - OTHER] PO SCH (18:15)
[2016-08-27] MEDS: OMEGA FISH OIL PO SCH (18:15)
[2016-08-27] MEDS: Betamethasone Dipropionate/Clotrimazole 0.05-1% Crm 15 GM Tube TOP SCH (23:14)
[2016-08-28] MEDS: LEVOTHYROXINE 75 MCG PO SCH (06:07)
[2016-08-28] MEDS: DABIGATRAN 150 MG PO SCH ×2 (10:23→18:00)
[2016-08-28] MEDS: UBIDECARENONE 100 MG PO SCH ×2 (10:23→18:00)
[2016-08-28] MEDS: CHOLECALCIFEROL 5000 UNIT PO SCH (10:23)
[2016-08-28] MEDS: Acetaminophen 500 MG Tab PO PRN (10:24)
[2016-08-28] MEDS: Dextran 70/Hypromellose/PF Ophth Soln 0.9 ML UD EYEBOTH SCH ×2 (10:24→18:01)
[2016-08-28] MEDS: Clobetasol 0.05% Crm 30 GM Tube TOP SCH (10:25)
[2016-08-28] MEDS: MAGNESIUM OXIDE PO SCH (18:00)
[2016-08-28] MEDS: ZINC GLUCONATE PO SCH (18:00)
[2016-08-28] MEDS: CALCIUM CARBONATE PO SCH (18:00)
[2016-08-28] MEDS: [UNRECOGNIZED DRUG - OTHER] PO SCH (18:00)
[2016-08-28] MEDS: OMEGA FISH OIL PO SCH (18:00)
[2016-08-29] MEDS: LEVOTHYROXINE 75 MCG PO SCH (06:26)
[2016-08-29] MEDS: CHOLECALCIFEROL 5000 UNIT PO SCH (10:02)
[2016-08-29] MEDS: Clobetasol 0.05% Crm 30 GM Tube TOP SCH (10:03)
[2016-08-29] MEDS: DABIGATRAN 150 MG PO SCH ×2 (10:04→18:18)
[2016-08-29] MEDS: Dextran 70/Hypromellose/PF Ophth Soln 0.9 ML UD EYEBOTH SCH ×2 (10:05→18:20)
[2016-08-29] MEDS: UBIDECARENONE 100 MG PO SCH ×2 (10:06→18:21)
[2016-08-29] MEDS: Acetaminophen 500 MG Tab PO PRN ×2 (10:07→17:11)
[2016-08-29] MEDS: ZINC GLUCONATE PO SCH (18:17)
[2016-08-29] MEDS: CALCIUM CARBONATE PO SCH (18:17)
[2016-08-29] MEDS: MAGNESIUM OXIDE PO SCH (18:17)
[2016-08-29] MEDS: OMEGA FISH OIL PO SCH (18:19)
[2016-08-29] MEDS: [UNRECOGNIZED DRUG - OTHER] PO SCH (18:20)
[2016-08-29] MEDS: Betamethasone Dipropionate/Clotrimazole 0.05-1% Crm 15 GM Tube TOP SCH (23:12)
[2016-08-30] MEDS: CHOLECALCIFEROL 5000 UNIT PO SCH (09:58)
[2016-08-30] MEDS: Clobetasol 0.05% Crm 30 GM Tube TOP SCH (10:00)
[2016-08-30] MEDS: DABIGATRAN 150 MG PO SCH ×2 (10:01→18:52)
[2016-08-30] MEDS: UBIDECARENONE 100 MG PO SCH ×2 (10:02→18:53)
[2016-08-30] MEDS: CONJUGATED ESTROGENS TOP SCH (10:03)
[2016-08-30] MEDS: [UNRECOGNIZED DRUG - OTHER] TOP SCH (10:03)
[2016-08-30] MEDS: Dextran 70/Hypromellose/PF Ophth Soln 0.9 ML UD EYEBOTH SCH ×2 (10:05→18:53)
[2016-08-30] MEDS: Acetaminophen 500 MG Tab PO PRN (10:08)
[2016-08-30] MEDS: ZINC GLUCONATE PO SCH (18:52)
[2016-08-30] MEDS: MAGNESIUM OXIDE PO SCH (18:52)
[2016-08-30] MEDS: [UNRECOGNIZED DRUG - OTHER] PO SCH (18:52)
[2016-08-30] MEDS: CALCIUM CARBONATE PO SCH (18:52)
[2016-08-30] MEDS: OMEGA FISH OIL PO SCH (18:52)
[2016-08-31] MEDS: LEVOTHYROXINE 75 MCG PO SCH (07:03)
[2016-08-31] MEDS: CHOLECALCIFEROL 5000 UNIT PO SCH (10:12)
[2016-08-31] MEDS: Clobetasol 0.05% Crm 30 GM Tube TOP SCH (10:13)
[2016-08-31] MEDS: DABIGATRAN 150 MG PO SCH ×2 (10:14→18:55)
[2016-08-31] MEDS: Dextran 70/Hypromellose/PF Ophth Soln 0.9 ML UD EYEBOTH SCH ×2 (10:14→18:58)
[2016-08-31] MEDS: UBIDECARENONE 100 MG PO SCH ×2 (10:15→18:58)
[2016-08-31] MEDS: Acetaminophen 500 MG Tab PO PRN ×2 (10:16→14:42)
[2016-08-31] MEDS: ZINC GLUCONATE PO SCH (18:55)
[2016-08-31] MEDS: CALCIUM CARBONATE PO SCH (18:55)
[2016-08-31] MEDS: MAGNESIUM OXIDE PO SCH (18:55)
[2016-08-31] MEDS: OMEGA FISH OIL PO SCH (18:57)
[2016-08-31] MEDS: [UNRECOGNIZED DRUG - OTHER] PO SCH (18:58)
[2016-09-01] MEDS: LEVOTHYROXINE 75 MCG PO SCH (06:01)
[2016-09-01] MEDS: DABIGATRAN 150 MG PO SCH ×2 (10:00→18:11)
[2016-09-01] MEDS: Acetaminophen 500 MG Tab PO PRN (10:01)
[2016-09-01] MEDS: Dextran 70/Hypromellose/PF Ophth Soln 0.9 ML UD EYEBOTH SCH ×2 (10:02→18:13)
[2016-09-01] MEDS: UBIDECARENONE 100 MG PO SCH ×2 (10:02→18:12)
[2016-09-01] MEDS: CHOLECALCIFEROL 5000 UNIT PO SCH (10:03)
[2016-09-01] MEDS: Clobetasol 0.05% Crm 30 GM Tube TOP SCH (10:03)
[2016-09-01] MEDS: [UNRECOGNIZED DRUG - OTHER] PO SCH (18:12)
[2016-09-01] MEDS: CALCIUM CARBONATE PO SCH (18:13)
[2016-09-01] MEDS: MAGNESIUM OXIDE PO SCH (18:13)
[2016-09-01] MEDS: ZINC GLUCONATE PO SCH (18:13)
[2016-09-01] MEDS: OMEGA FISH OIL PO SCH (18:13)
[2016-09-01] MEDS: Betamethasone Dipropionate/Clotrimazole 0.05-1% Crm 15 GM Tube TOP SCH (23:09)
[2016-09-02] MEDS: LEVOTHYROXINE 75 MCG PO SCH (06:01)
[2016-09-02] MEDS: UBIDECARENONE 100 MG PO SCH ×2 (09:44→18:31)
[2016-09-02] MEDS: CHOLECALCIFEROL 5000 UNIT PO SCH (09:45)
[2016-09-02] MEDS: DABIGATRAN 150 MG PO SCH ×2 (09:45→18:30)
[2016-09-02] MEDS: Dextran 70/Hypromellose/PF Ophth Soln 0.9 ML UD EYEBOTH SCH ×2 (09:47→18:31)
[2016-09-02] MEDS: Clobetasol 0.05% Crm 30 GM Tube TOP SCH (09:47)
[2016-09-02] MEDS: [UNRECOGNIZED DRUG - OTHER] TOP SCH (09:49)
[2016-09-02] MEDS: CONJUGATED ESTROGENS TOP SCH (09:49)
[2016-09-02] MEDS: Acetaminophen 500 MG Tab PO PRN (09:52)
[2016-09-02] MEDS: CALCIUM CARBONATE PO SCH (18:30)
[2016-09-02] MEDS: MAGNESIUM OXIDE PO SCH (18:30)
[2016-09-02] MEDS: ZINC GLUCONATE PO SCH (18:30)
[2016-09-02] MEDS: [UNRECOGNIZED DRUG - OTHER] PO SCH (18:31)
[2016-09-02] MEDS: OMEGA FISH OIL PO SCH (18:31)
[2016-09-03] MEDS: LEVOTHYROXINE 75 MCG PO SCH ×2 (05:52→06:28)
[2016-09-03] MEDS: Acetaminophen 500 MG Tab PO PRN ×2 (09:53→17:08)
[2016-09-03] MEDS: UBIDECARENONE 100 MG PO SCH ×2 (09:53→18:03)
[2016-09-03] MEDS: CHOLECALCIFEROL 5000 UNIT PO SCH (09:53)
[2016-09-03] MEDS: Clobetasol 0.05% Crm 30 GM Tube TOP SCH (09:54)
[2016-09-03] MEDS: Dextran 70/Hypromellose/PF Ophth Soln 0.9 ML UD EYEBOTH SCH ×2 (09:54→18:04)
[2016-09-03] MEDS: DABIGATRAN 150 MG PO SCH ×2 (09:54→18:03)
[2016-09-03] MEDS: OMEGA FISH OIL PO SCH (18:02)
[2016-09-03] MEDS: ZINC GLUCONATE PO SCH (18:03)
[2016-09-03] MEDS: [UNRECOGNIZED DRUG - OTHER] PO SCH (18:03)
[2016-09-03] MEDS: MAGNESIUM OXIDE PO SCH (18:03)
[2016-09-03] MEDS: CALCIUM CARBONATE PO SCH (18:03)
[2016-09-04] MEDS: Betamethasone Dipropionate/Clotrimazole 0.05-1% Crm 15 GM Tube TOP SCH (01:18)
[2016-09-04] MEDS: LEVOTHYROXINE 75 MCG PO SCH (06:21)
[2016-09-04] MEDS: Clobetasol 0.05% Crm 30 GM Tube TOP SCH (09:46)
[2016-09-04] MEDS: CHOLECALCIFEROL 5000 UNIT PO SCH (09:47)
[2016-09-04] MEDS: Dextran 70/Hypromellose/PF Ophth Soln 0.9 ML UD EYEBOTH SCH ×2 (09:48→18:41)
[2016-09-04] MEDS: DABIGATRAN 150 MG PO SCH ×2 (09:48→18:40)
[2016-09-04] MEDS: UBIDECARENONE 100 MG PO SCH ×2 (09:49→18:42)
[2016-09-04] MEDS: Acetaminophen 500 MG Tab PO PRN ×2 (09:50→18:43)
[2016-09-04] MEDS: ZINC GLUCONATE PO SCH (18:39)
[2016-09-04] MEDS: MAGNESIUM OXIDE PO SCH (18:39)
[2016-09-04] MEDS: CALCIUM CARBONATE PO SCH (18:39)
[2016-09-04] MEDS: OMEGA FISH OIL PO SCH (18:40)
[2016-09-04] MEDS: [UNRECOGNIZED DRUG - OTHER] PO SCH (18:41)
[2016-09-05] MEDS: LEVOTHYROXINE 75 MCG PO SCH (06:14)
[2016-09-05] MEDS: [UNRECOGNIZED DRUG - OTHER] TOP SCH (10:18)
[2016-09-05] MEDS: CONJUGATED ESTROGENS TOP SCH (10:18)
[2016-09-05] MEDS: Clobetasol 0.05% Crm 30 GM Tube TOP SCH (10:18)
[2016-09-05] MEDS: Acetaminophen 500 MG Tab PO PRN (10:27)
[2016-09-05] MEDS: DABIGATRAN 150 MG PO SCH ×2 (10:28→18:02)
[2016-09-05] MEDS: CHOLECALCIFEROL 5000 UNIT PO SCH (10:28)
[2016-09-05] MEDS: UBIDECARENONE 100 MG PO SCH ×2 (10:29→18:03)
[2016-09-05] MEDS: Dextran 70/Hypromellose/PF Ophth Soln 0.9 ML UD EYEBOTH SCH ×2 (10:30→18:04)
[2016-09-05] MEDS: MAGNESIUM OXIDE PO SCH (18:02)
[2016-09-05] MEDS: [UNRECOGNIZED DRUG - OTHER] PO SCH (18:02)
[2016-09-05] MEDS: CALCIUM CARBONATE PO SCH (18:02)
[2016-09-05] MEDS: ZINC GLUCONATE PO SCH (18:02)
[2016-09-05] MEDS: OMEGA FISH OIL PO SCH (18:04)
[2016-09-05] MEDS: Betamethasone Dipropionate/Clotrimazole 0.05-1% Crm 15 GM Tube TOP SCH (22:42)
[2016-09-06] MEDS: DABIGATRAN 150 MG PO SCH ×2 (10:04→18:20)
[2016-09-06] MEDS: CHOLECALCIFEROL 5000 UNIT PO SCH (10:04)
[2016-09-06] MEDS: Acetaminophen 500 MG Tab PO PRN (10:05)
[2016-09-06] MEDS: Dextran 70/Hypromellose/PF Ophth Soln 0.9 ML UD EYEBOTH SCH ×2 (10:07→18:21)
[2016-09-06] MEDS: UBIDECARENONE 100 MG PO SCH ×2 (10:07→18:18)
[2016-09-06] MEDS: Clobetasol 0.05% Crm 30 GM Tube TOP SCH (10:08)
[2016-09-06] MEDS: CALCIUM CARBONATE PO SCH (18:19)
[2016-09-06] MEDS: OMEGA FISH OIL PO SCH (18:19)
[2016-09-06] MEDS: ZINC GLUCONATE PO SCH (18:19)
[2016-09-06] MEDS: [UNRECOGNIZED DRUG - OTHER] PO SCH (18:19)
[2016-09-06] MEDS: MAGNESIUM OXIDE PO SCH (18:19)
[2016-09-07] MEDS: LEVOTHYROXINE 75 MCG PO SCH (06:21)
[2016-09-07] MEDS: CHOLECALCIFEROL 5000 UNIT PO SCH (10:18)
[2016-09-07] MEDS: UBIDECARENONE 100 MG PO SCH ×2 (10:19→18:33)
[2016-09-07] MEDS: Dextran 70/Hypromellose/PF Ophth Soln 0.9 ML UD EYEBOTH SCH ×2 (10:20→18:33)
[2016-09-07] MEDS: DABIGATRAN 150 MG PO SCH ×2 (10:21→18:32)
[2016-09-07] MEDS: Clobetasol 0.05% Crm 30 GM Tube TOP SCH (10:21)
[2016-09-07] MEDS: Acetaminophen 500 MG Tab PO PRN ×2 (10:22→19:58)
[2016-09-07] MEDS: CALCIUM CARBONATE PO SCH (18:31)
[2016-09-07] MEDS: ZINC GLUCONATE PO SCH (18:31)
[2016-09-07] MEDS: MAGNESIUM OXIDE PO SCH (18:31)
[2016-09-07] MEDS: OMEGA FISH OIL PO SCH (18:33)
[2016-09-07] MEDS: [UNRECOGNIZED DRUG - OTHER] PO SCH (18:33)
[2016-09-08] MEDS: LEVOTHYROXINE 75 MCG PO SCH (06:01)
[2016-09-08] MEDS: CHOLECALCIFEROL 5000 UNIT PO SCH (09:30)
[2016-09-08] MEDS: Acetaminophen 500 MG Tab PO PRN (09:30)
[2016-09-08] MEDS: DABIGATRAN 150 MG PO SCH ×2 (09:30→18:11)
[2016-09-08] MEDS: Dextran 70/Hypromellose/PF Ophth Soln 0.9 ML UD EYEBOTH SCH ×2 (09:30→18:11)
[2016-09-08] MEDS: Clobetasol 0.05% Crm 30 GM Tube TOP SCH (09:31)
[2016-09-08] MEDS: UBIDECARENONE 100 MG PO SCH ×2 (09:31→18:12)
[2016-09-08] MEDS: CONJUGATED ESTROGENS TOP SCH (09:32)
[2016-09-08] MEDS: [UNRECOGNIZED DRUG - OTHER] TOP SCH (09:32)
[2016-09-08] MEDS: OMEGA FISH OIL PO SCH (18:11)
[2016-09-08] MEDS: [UNRECOGNIZED DRUG - OTHER] PO SCH (18:11)
[2016-09-08] MEDS: CALCIUM CARBONATE PO SCH (18:12)
[2016-09-08] MEDS: ZINC GLUCONATE PO SCH (18:12)
[2016-09-08] MEDS: MAGNESIUM OXIDE PO SCH (18:12)
[2016-09-09] MEDS: Betamethasone Dipropionate/Clotrimazole 0.05-1% Crm 15 GM Tube TOP SCH (06:21)
[2016-09-09] MEDS: LEVOTHYROXINE 75 MCG PO SCH (06:22)
[2016-09-09] MEDS: Clobetasol 0.05% Crm 30 GM Tube TOP SCH (09:39)
[2016-09-09] MEDS: Acetaminophen 500 MG Tab PO PRN (09:39)
[2016-09-09] MEDS: Dextran 70/Hypromellose/PF Ophth Soln 0.9 ML UD EYEBOTH SCH ×2 (09:39→18:14)
[2016-09-09] MEDS: DABIGATRAN 150 MG PO SCH ×2 (09:39→18:14)
[2016-09-09] MEDS: UBIDECARENONE 100 MG PO SCH ×2 (09:40→18:15)
[2016-09-09] MEDS: CHOLECALCIFEROL 5000 UNIT PO SCH (09:40)
[2016-09-09] MEDS: ZINC GLUCONATE PO SCH (18:15)
[2016-09-09] MEDS: MAGNESIUM OXIDE PO SCH (18:15)
[2016-09-09] MEDS: CALCIUM CARBONATE PO SCH (18:15)
[2016-09-09] MEDS: OMEGA FISH OIL PO SCH (18:15)
[2016-09-09] MEDS: [UNRECOGNIZED DRUG - OTHER] PO SCH (18:15)
[2016-09-10] MEDS: LEVOTHYROXINE 75 MCG PO SCH (06:19)
[2016-09-10] MEDS: CHOLECALCIFEROL 5000 UNIT PO SCH (09:41)
[2016-09-10] MEDS: Clobetasol 0.05% Crm 30 GM Tube TOP SCH (09:42)
[2016-09-10] MEDS: DABIGATRAN 150 MG PO SCH ×2 (09:43→18:52)
[2016-09-10] MEDS: UBIDECARENONE 100 MG PO SCH ×2 (09:44→18:53)
[2016-09-10] MEDS: Acetaminophen 500 MG Tab PO PRN ×2 (09:45→18:54)
[2016-09-10] MEDS: Dextran 70/Hypromellose/PF Ophth Soln 0.9 ML UD EYEBOTH SCH ×2 (09:55→18:53)
[2016-09-10] MEDS: MAGNESIUM OXIDE PO SCH (18:51)
[2016-09-10] MEDS: CALCIUM CARBONATE PO SCH (18:51)
[2016-09-10] MEDS: ZINC GLUCONATE PO SCH (18:51)
[2016-09-10] MEDS: OMEGA FISH OIL PO SCH (18:52)
[2016-09-10] MEDS: [UNRECOGNIZED DRUG - OTHER] PO SCH (18:53)
[2016-09-11] MEDS: Betamethasone Dipropionate/Clotrimazole 0.05-1% Crm 15 GM Tube TOP SCH (06:04)
[2016-09-11] MEDS: LEVOTHYROXINE 75 MCG PO SCH (06:04)
[2016-09-11] MEDS: Clobetasol 0.05% Crm 30 GM Tube TOP SCH ×2 (09:40→10:26)
[2016-09-11] MEDS: CHOLECALCIFEROL 5000 UNIT PO SCH (09:40)
[2016-09-11] MEDS: DABIGATRAN 150 MG PO SCH ×2 (09:41→18:23)
[2016-09-11] MEDS: UBIDECARENONE 100 MG PO SCH ×2 (09:43→18:26)
[2016-09-11] MEDS: Dextran 70/Hypromellose/PF Ophth Soln 0.9 ML UD EYEBOTH SCH ×2 (09:43→18:25)
[2016-09-11] MEDS: Acetaminophen 500 MG Tab PO PRN ×2 (09:44→18:27)
[2016-09-11] MEDS: [UNRECOGNIZED DRUG - OTHER] TOP SCH (10:27)
[2016-09-11] MEDS: CONJUGATED ESTROGENS TOP SCH (10:27)
[2016-09-11] MEDS: Menthol/Zinc Oxide Ointment 3.5 GM Tube TOP SCH ×2 (10:27→23:14)
[2016-09-11] MEDS: ZINC GLUCONATE PO SCH (18:22)
[2016-09-11] MEDS: CALCIUM CARBONATE PO SCH (18:22)
[2016-09-11] MEDS: MAGNESIUM OXIDE PO SCH (18:22)
[2016-09-11] MEDS: OMEGA FISH OIL PO SCH (18:24)
[2016-09-11] MEDS: [UNRECOGNIZED DRUG - OTHER] PO SCH (18:26)
[2016-09-12] MEDS: LEVOTHYROXINE 75 MCG PO SCH (06:04)
[2016-09-12] MEDS: Acetaminophen 500 MG Tab PO PRN (09:14)
[2016-09-12] MEDS: CHOLECALCIFEROL 5000 UNIT PO SCH (09:15)
[2016-09-12] MEDS: UBIDECARENONE 100 MG PO SCH ×2 (09:15→18:39)
[2016-09-12] MEDS: DABIGATRAN 150 MG PO SCH ×2 (09:15→18:38)
[2016-09-12] MEDS: Menthol/Zinc Oxide Ointment 3.5 GM Tube TOP SCH ×2 (09:16→22:54)
[2016-09-12] MEDS: Dextran 70/Hypromellose/PF Ophth Soln 0.9 ML UD EYEBOTH SCH ×2 (09:16→18:39)
[2016-09-12] MEDS: OMEGA FISH OIL PO SCH (18:39)
[2016-09-12] MEDS: MAGNESIUM OXIDE PO SCH (18:39)
[2016-09-12] MEDS: CALCIUM CARBONATE PO SCH (18:39)
[2016-09-12] MEDS: [UNRECOGNIZED DRUG - OTHER] PO SCH (18:39)
[2016-09-12] MEDS: ZINC GLUCONATE PO SCH (18:39)
[2016-09-13] MEDS: UBIDECARENONE 100 MG PO SCH ×2 (09:13→19:03)
[2016-09-13] MEDS: Dextran 70/Hypromellose/PF Ophth Soln 0.9 ML UD EYEBOTH SCH ×2 (09:13→19:04)
[2016-09-13] MEDS: DABIGATRAN 150 MG PO SCH ×2 (09:13→19:03)
[2016-09-13] MEDS: Menthol/Zinc Oxide Ointment 3.5 GM Tube TOP SCH ×3 (09:14→23:23)
[2016-09-13] MEDS: Acetaminophen 500 MG Tab PO PRN (09:14)
[2016-09-13] MEDS: CHOLECALCIFEROL 5000 UNIT PO SCH (09:14)
[2016-09-13] MEDS: OMEGA FISH OIL PO SCH (19:02)
[2016-09-13] MEDS: [UNRECOGNIZED DRUG - OTHER] PO SCH (19:02)
[2016-09-13] MEDS: MAGNESIUM OXIDE PO SCH (19:03)
[2016-09-13] MEDS: CALCIUM CARBONATE PO SCH (19:03)
[2016-09-13] MEDS: ZINC GLUCONATE PO SCH (19:03)
[2016-09-14] MEDS: LEVOTHYROXINE 75 MCG PO SCH (06:24)
[2016-09-14] MEDS: Dextran 70/Hypromellose/PF Ophth Soln 0.9 ML UD EYEBOTH SCH ×3 (09:33→18:10)
[2016-09-14] MEDS: DABIGATRAN 150 MG PO SCH ×2 (09:33→18:09)
[2016-09-14] MEDS: CHOLECALCIFEROL 5000 UNIT PO SCH (09:33)
[2016-09-14] MEDS: UBIDECARENONE 100 MG PO SCH ×2 (09:33→18:09)
[2016-09-14] MEDS: Acetaminophen 500 MG Tab PO PRN (09:34)
[2016-09-14] MEDS: Menthol/Zinc Oxide Ointment 3.5 GM Tube TOP SCH ×2 (09:34→23:00)
[2016-09-14] MEDS: CALCIUM CARBONATE PO SCH (18:09)
[2016-09-14] MEDS: [UNRECOGNIZED DRUG - OTHER] PO SCH (18:09)
[2016-09-14] MEDS: ZINC GLUCONATE PO SCH (18:09)
[2016-09-14] MEDS: MAGNESIUM OXIDE PO SCH (18:09)
[2016-09-14] MEDS: OMEGA FISH OIL PO SCH (18:10)
[2016-09-15] MEDS: LEVOTHYROXINE 75 MCG PO SCH (06:50)
[2016-09-15] MEDS: DABIGATRAN 150 MG PO SCH ×2 (09:47→18:06)
[2016-09-15] MEDS: CHOLECALCIFEROL 5000 UNIT PO SCH (09:48)
[2016-09-15] MEDS: Acetaminophen 500 MG Tab PO PRN ×2 (09:48→22:57)
[2016-09-15] MEDS: UBIDECARENONE 100 MG PO SCH ×2 (09:48→18:05)
[2016-09-15] MEDS: Dextran 70/Hypromellose/PF Ophth Soln 0.9 ML UD EYEBOTH SCH ×3 (09:49→18:07)
[2016-09-15] MEDS: Menthol/Zinc Oxide Ointment 3.5 GM Tube TOP SCH ×2 (09:51→22:54)
[2016-09-15] MEDS: MAGNESIUM OXIDE PO SCH (18:06)
[2016-09-15] MEDS: CALCIUM CARBONATE PO SCH (18:06)
[2016-09-15] MEDS: [UNRECOGNIZED DRUG - OTHER] PO SCH (18:06)
[2016-09-15] MEDS: ZINC GLUCONATE PO SCH (18:06)
[2016-09-15] MEDS: OMEGA FISH OIL PO SCH (18:06)
[2016-09-16] MEDS: LEVOTHYROXINE 75 MCG PO SCH (06:24)
[2016-09-16] MEDS: Menthol/Zinc Oxide Ointment 3.5 GM Tube TOP SCH ×2 (10:24→22:36)
[2016-09-16] MEDS: DABIGATRAN 150 MG PO SCH ×2 (10:24→18:31)
[2016-09-16] MEDS: CHOLECALCIFEROL 5000 UNIT PO SCH (10:25)
[2016-09-16] MEDS: UBIDECARENONE 100 MG PO SCH ×2 (10:25→18:32)
[2016-09-16] MEDS: Dextran 70/Hypromellose/PF Ophth Soln 0.9 ML UD EYEBOTH SCH ×2 (10:26→18:33)
[2016-09-16] MEDS: Acetaminophen 500 MG Tab PO PRN (10:45)
[2016-09-16] MEDS: ZINC GLUCONATE PO SCH (18:31)
[2016-09-16] MEDS: [UNRECOGNIZED DRUG - OTHER] PO SCH (18:31)
[2016-09-16] MEDS: MAGNESIUM OXIDE PO SCH (18:31)
[2016-09-16] MEDS: OMEGA FISH OIL PO SCH (18:31)
[2016-09-16] MEDS: CALCIUM CARBONATE PO SCH (18:31)
[2016-09-17] MEDS: LEVOTHYROXINE 75 MCG PO SCH (06:27)
[2016-09-17] MEDS: DABIGATRAN 150 MG PO SCH ×2 (09:56→18:56)
[2016-09-17] MEDS: CHOLECALCIFEROL 5000 UNIT PO SCH (09:56)
[2016-09-17] MEDS: Dextran 70/Hypromellose/PF Ophth Soln 0.9 ML UD EYEBOTH SCH (09:57)
[2016-09-17] MEDS: Menthol/Zinc Oxide Ointment 3.5 GM Tube TOP SCH ×2 (09:57→22:22)
[2016-09-17] MEDS: UBIDECARENONE 100 MG PO SCH ×2 (09:57→18:56)
[2016-09-17] MEDS: Acetaminophen 500 MG Tab PO PRN (09:58)
[2016-09-17] MEDS: ZINC GLUCONATE PO SCH (18:56)
[2016-09-17] MEDS: CALCIUM CARBONATE PO SCH (18:56)
[2016-09-17] MEDS: OMEGA FISH OIL PO SCH (18:56)
[2016-09-17] MEDS: MAGNESIUM OXIDE PO SCH (18:56)
[2016-09-17] MEDS: [UNRECOGNIZED DRUG - OTHER] PO SCH (18:57)
[2016-09-18] MEDS: LEVOTHYROXINE 75 MCG PO SCH (06:21)
[2016-09-18] MEDS: UBIDECARENONE 100 MG PO SCH ×2 (09:40→18:01)
[2016-09-18] MEDS: CHOLECALCIFEROL 5000 UNIT PO SCH (09:41)
[2016-09-18] MEDS: Menthol/Zinc Oxide Ointment 3.5 GM Tube TOP SCH ×2 (09:41→23:22)
[2016-09-18] MEDS: DABIGATRAN 150 MG PO SCH ×2 (09:41→18:00)
[2016-09-18] MEDS: Acetaminophen 500 MG Tab PO PRN (09:43)
[2016-09-18] MEDS: CALCIUM CARBONATE PO SCH (18:01)
[2016-09-18] MEDS: [UNRECOGNIZED DRUG - OTHER] PO SCH (18:01)
[2016-09-18] MEDS: OMEGA FISH OIL PO SCH (18:01)
[2016-09-18] MEDS: MAGNESIUM OXIDE PO SCH (18:01)
[2016-09-18] MEDS: ZINC GLUCONATE PO SCH (18:01)
[2016-09-19] MEDS: LEVOTHYROXINE 75 MCG PO SCH (06:08)
[2016-09-19] MEDS: Menthol/Zinc Oxide Ointment 3.5 GM Tube TOP SCH (10:22)
[2016-09-19] MEDS: UBIDECARENONE 100 MG PO SCH ×2 (10:24→18:12)
[2016-09-19] MEDS: DABIGATRAN 150 MG PO SCH ×2 (10:24→18:10)
[2016-09-19] MEDS: Acetaminophen 500 MG Tab PO PRN (10:25)
[2016-09-19] MEDS: CHOLECALCIFEROL 5000 UNIT PO SCH (10:25)
[2016-09-19] MEDS: CALCIUM CARBONATE PO SCH (18:10)
[2016-09-19] MEDS: ZINC GLUCONATE PO SCH (18:10)
[2016-09-19] MEDS: OMEGA FISH OIL PO SCH (18:10)
[2016-09-19] MEDS: MAGNESIUM OXIDE PO SCH (18:10)
[2016-09-19] MEDS: [UNRECOGNIZED DRUG - OTHER] PO SCH (18:11)
[2016-09-20] MEDS: Menthol/Zinc Oxide Ointment 3.5 GM Tube TOP SCH ×3 (05:46→23:10)
[2016-09-20] MEDS: DABIGATRAN 150 MG PO SCH ×2 (09:40→18:08)
[2016-09-20] MEDS: CHOLECALCIFEROL 5000 UNIT PO SCH (09:41)
[2016-09-20] MEDS: UBIDECARENONE 100 MG PO SCH ×2 (09:42→18:08)
[2016-09-20] MEDS: Acetaminophen 500 MG Tab PO PRN (09:43)
[2016-09-20] MEDS: CALCIUM CARBONATE PO SCH (18:08)
[2016-09-20] MEDS: MAGNESIUM OXIDE PO SCH (18:08)
[2016-09-20] MEDS: ZINC GLUCONATE PO SCH (18:08)
[2016-09-20] MEDS: OMEGA FISH OIL PO SCH (18:09)
[2016-09-20] MEDS: [UNRECOGNIZED DRUG - OTHER] PO SCH (18:09)
[2016-09-21] MEDS: LEVOTHYROXINE 75 MCG PO SCH ×2 (04:36→06:24)
[2016-09-21] MEDS: Menthol/Zinc Oxide Ointment 3.5 GM Tube TOP SCH ×2 (09:47→23:09)
[2016-09-21] MEDS: DABIGATRAN 150 MG PO SCH ×2 (09:48→18:15)
[2016-09-21] MEDS: CHOLECALCIFEROL 5000 UNIT PO SCH (09:48)
[2016-09-21] MEDS: UBIDECARENONE 100 MG PO SCH ×2 (09:49→18:16)
[2016-09-21] MEDS: Acetaminophen 500 MG Tab PO PRN (09:50)
[2016-09-21] MEDS: OMEGA FISH OIL PO SCH (18:15)
[2016-09-21] MEDS: MAGNESIUM OXIDE PO SCH (18:16)
[2016-09-21] MEDS: ZINC GLUCONATE PO SCH (18:16)
[2016-09-21] MEDS: [UNRECOGNIZED DRUG - OTHER] PO SCH (18:16)
[2016-09-21] MEDS: CALCIUM CARBONATE PO SCH (18:16)
[2016-09-22] MEDS: LEVOTHYROXINE 75 MCG PO SCH (06:16)
[2016-09-22] MEDS: DABIGATRAN 150 MG PO SCH ×2 (09:45→18:03)
[2016-09-22] MEDS: Menthol/Zinc Oxide Ointment 3.5 GM Tube TOP SCH (09:46)
[2016-09-22] MEDS: CHOLECALCIFEROL 5000 UNIT PO SCH (09:46)
[2016-09-22] MEDS: UBIDECARENONE 100 MG PO SCH ×2 (09:46→18:05)
[2016-09-22] MEDS: Acetaminophen 500 MG Tab PO PRN (09:47)
[2016-09-22] MEDS: MAGNESIUM OXIDE PO SCH (18:03)
[2016-09-22] MEDS: ZINC GLUCONATE PO SCH (18:03)
[2016-09-22] MEDS: CALCIUM CARBONATE PO SCH (18:03)
[2016-09-22] MEDS: OMEGA FISH OIL PO SCH (18:04)
[2016-09-22] MEDS: [UNRECOGNIZED DRUG - OTHER] PO SCH (18:05)
[2016-09-23] MEDS: Menthol/Zinc Oxide Ointment 3.5 GM Tube TOP SCH ×3 (02:00→22:58)
[2016-09-23] MEDS: LEVOTHYROXINE 75 MCG PO SCH (06:22)
[2016-09-23] MEDS: CHOLECALCIFEROL 5000 UNIT PO SCH (09:31)
[2016-09-23] MEDS: UBIDECARENONE 100 MG PO SCH ×2 (09:32→18:10)
[2016-09-23] MEDS: DABIGATRAN 150 MG PO SCH ×2 (09:32→18:09)
[2016-09-23] MEDS: DEXTRAN EYEBOTH PRN (09:33)
[2016-09-23] MEDS: Acetaminophen 500 MG Tab PO PRN (09:33)
[2016-09-23] MEDS: HYPROMELLOSE EYEBOTH PRN (09:33)
[2016-09-23] MEDS: MAGNESIUM OXIDE PO SCH (18:08)
[2016-09-23] MEDS: ZINC GLUCONATE PO SCH (18:08)
[2016-09-23] MEDS: CALCIUM CARBONATE PO SCH (18:08)
[2016-09-23] MEDS: [UNRECOGNIZED DRUG - OTHER] PO SCH (18:10)
[2016-09-23] MEDS: OMEGA FISH OIL PO SCH (18:10)
[2016-09-24] MEDS: LEVOTHYROXINE 75 MCG PO SCH ×2 (05:56→08:05)
[2016-09-24] MEDS: DABIGATRAN 150 MG PO SCH ×2 (09:16→18:10)
[2016-09-24] MEDS: CHOLECALCIFEROL 5000 UNIT PO SCH (09:16)
[2016-09-24] MEDS: UBIDECARENONE 100 MG PO SCH ×2 (09:16→18:11)
[2016-09-24] MEDS: Acetaminophen 500 MG Tab PO PRN (09:17)
[2016-09-24] MEDS: Menthol/Zinc Oxide Ointment 3.5 GM Tube TOP SCH ×2 (09:18→23:42)
[2016-09-24] MEDS: MAGNESIUM OXIDE PO SCH (18:10)
[2016-09-24] MEDS: OMEGA FISH OIL PO SCH (18:10)
[2016-09-24] MEDS: CALCIUM CARBONATE PO SCH (18:10)
[2016-09-24] MEDS: ZINC GLUCONATE PO SCH (18:10)
[2016-09-24] MEDS: [UNRECOGNIZED DRUG - OTHER] PO SCH (18:11)
[2016-09-25] MEDS: LEVOTHYROXINE 75 MCG PO SCH (06:04)
[2016-09-25] MEDS: DABIGATRAN 150 MG PO SCH ×2 (10:09→18:36)
[2016-09-25] MEDS: Menthol/Zinc Oxide Ointment 3.5 GM Tube TOP SCH (10:09)
[2016-09-25] MEDS: UBIDECARENONE 100 MG PO SCH ×2 (10:10→18:38)
[2016-09-25] MEDS: CHOLECALCIFEROL 5000 UNIT PO SCH (10:10)
[2016-09-25] MEDS: MAGNESIUM OXIDE PO SCH (18:38)
[2016-09-25] MEDS: CALCIUM CARBONATE PO SCH (18:38)
[2016-09-25] MEDS: [UNRECOGNIZED DRUG - OTHER] PO SCH (18:38)
[2016-09-25] MEDS: OMEGA FISH OIL PO SCH (18:38)
[2016-09-25] MEDS: ZINC GLUCONATE PO SCH (18:38)
[2016-09-25] MEDS: CLOBETASOL 0.05% TOP SCH (18:42)
--- NOTE | 2016-09-25 22:11 | PCM.SN ---
- Free Text/Narrative Note: The nurse notified me that Shantel had more redness and sores in the vaginal area. I examined her and she does have red sores in the vagina and vulvar area. I recommend clobetasol BID x 2 weeks and a visit with SECURITIES ADVISER again. She is now using cotton panties and was getting barrier cream. She denies incontinence.
[2016-09-26] MEDS: LEVOTHYROXINE 75 MCG PO SCH (06:35)
[2016-09-26] MEDS: DABIGATRAN 150 MG PO SCH ×2 (09:22→18:00)
[2016-09-26] MEDS: HYPROMELLOSE EYEBOTH PRN (09:23)
[2016-09-26] MEDS: DEXTRAN EYEBOTH PRN (09:23)
[2016-09-26] MEDS: CHOLECALCIFEROL 5000 UNIT PO SCH (09:23)
[2016-09-26] MEDS: UBIDECARENONE 100 MG PO SCH ×2 (09:23→18:01)
[2016-09-26] MEDS: Acetaminophen 500 MG Tab PO PRN (09:24)
[2016-09-26] MEDS: CLOBETASOL 0.05% TOP SCH ×3 (12:16→23:10)
--- NOTE | 2016-09-26 12:19 | PN ---
Progress Note for EMILY SNEED Date: 09/24/2016 Room #: SUBJECTIVE: An 86-year-old seen today who is on long-term swing bed for severe osteoarthritis which affects her mobility and ability to do ADLs. She has been feeling great. She has had no further episodes of weakness. Her only concern is irritation she has on her bottom, it has been about 2 weeks since it has gotten worse. She has been on numerous creams in the past. She has been to OB/GYN PHYSICIAN. Currently, she is just using Calmoseptine and she just switched over to a cotton underwear. She denies any problems with incontinence. She feels like the pain is more on the outside. No discharge noted. No fever, no chills. OBJECTIVE: Vital Signs: She has a temperature of 97.4, pulse 60, blood pressure was 148/71, respiratory rate 18, and O2 of 93% on room air. Her weight is 79 kg. General: She is in no acute distress. Heart: Irregularly irregular with murmur. Respiratory: Lungs sounds are clear to auscultation without crackles or wheezes. Abdomen: Positive bowel sounds. Soft and nontender. Extremities: Warm and dry. No edema. Mental Status: Alert and orientated x3. ASSESSMENT: 1. Atrial fibrillation, rate controlled. She is on Pradaxa. We will continue with the same. 2. Hypothyroidism, treated. 3. Essential hypertension, controlled. 4. Atrophic vaginitis, symptomatic intermittently. 5. Osteoarthritis. 6. Mild thrombocytopenia. PLAN: At this point, we will continue swing bed cares. She will probably need lab work again in the next 2-3 months. She, otherwise, we will continue with local barrier cream cares to the vaginal vulvar area. If things are not improving over the next couple weeks, I will either take a look or have her see OB/GYN PHYSICIAN again. We can consider restarting clobetasol as well. MKA: 09/25/2016 08:35:31 MODL: 09/25/2016 08:50:37 /[id number]
[2016-09-26] MEDS: Betamethasone Dipropionate/Clotrimazole 0.05-1% Crm 15 GM Tube TOP SCH ×2 (12:23→23:10)
[2016-09-26] MEDS: OMEGA FISH OIL PO SCH (18:00)
[2016-09-26] MEDS: CALCIUM CARBONATE PO SCH (18:01)
[2016-09-26] MEDS: MAGNESIUM OXIDE PO SCH (18:01)
[2016-09-26] MEDS: ZINC GLUCONATE PO SCH (18:01)
[2016-09-26] MEDS: [UNRECOGNIZED DRUG - OTHER] PO SCH (18:01)
[2016-09-27] MEDS: Betamethasone Dipropionate/Clotrimazole 0.05-1% Crm 15 GM Tube TOP SCH ×2 (08:59→23:09)
[2016-09-27] MEDS: CLOBETASOL 0.05% TOP SCH ×2 (08:59→23:09)
[2016-09-27] MEDS: Acetaminophen 500 MG Tab PO PRN (09:00)
[2016-09-27] MEDS: HYPROMELLOSE EYEBOTH PRN (09:01)
[2016-09-27] MEDS: UBIDECARENONE 100 MG PO SCH ×2 (09:01→18:00)
[2016-09-27] MEDS: DABIGATRAN 150 MG PO SCH ×2 (09:01→18:00)
[2016-09-27] MEDS: DEXTRAN EYEBOTH PRN (09:01)
[2016-09-27] MEDS: CHOLECALCIFEROL 5000 UNIT PO SCH (09:02)
[2016-09-27] MEDS: [UNRECOGNIZED DRUG - OTHER] PO SCH (18:00)
[2016-09-27] MEDS: MAGNESIUM OXIDE PO SCH (18:00)
[2016-09-27] MEDS: ZINC GLUCONATE PO SCH (18:00)
[2016-09-27] MEDS: CALCIUM CARBONATE PO SCH (18:00)
[2016-09-27] MEDS: OMEGA FISH OIL PO SCH (18:01)
[2016-09-28] MEDS: LEVOTHYROXINE 75 MCG PO SCH (06:31)
[2016-09-28] MEDS: CLOBETASOL 0.05% TOP SCH ×2 (09:13→22:30)
[2016-09-28] MEDS: Betamethasone Dipropionate/Clotrimazole 0.05-1% Crm 15 GM Tube TOP SCH ×2 (09:14→22:29)
[2016-09-28] MEDS: DEXTRAN EYEBOTH PRN (09:19)
[2016-09-28] MEDS: HYPROMELLOSE EYEBOTH PRN (09:19)
[2016-09-28] MEDS: Acetaminophen 500 MG Tab PO PRN (09:19)
[2016-09-28] MEDS: UBIDECARENONE 100 MG PO SCH ×2 (09:20→18:30)
[2016-09-28] MEDS: DABIGATRAN 150 MG PO SCH ×2 (09:20→18:30)
[2016-09-28] MEDS: CHOLECALCIFEROL 5000 UNIT PO SCH (09:20)
[2016-09-28] MEDS: [UNRECOGNIZED DRUG - OTHER] PO SCH (18:31)
[2016-09-28] MEDS: MAGNESIUM OXIDE PO SCH (18:31)
[2016-09-28] MEDS: OMEGA FISH OIL PO SCH (18:31)
[2016-09-28] MEDS: ZINC GLUCONATE PO SCH (18:31)
[2016-09-28] MEDS: CALCIUM CARBONATE PO SCH (18:31)
[2016-09-29] MEDS: LEVOTHYROXINE 75 MCG PO SCH (06:05)
[2016-09-29] MEDS: Betamethasone Dipropionate/Clotrimazole 0.05-1% Crm 15 GM Tube TOP SCH ×2 (09:17→22:30)
[2016-09-29] MEDS: CLOBETASOL 0.05% TOP SCH ×2 (09:17→22:30)
[2016-09-29] MEDS: CHOLECALCIFEROL 5000 UNIT PO SCH (09:23)
[2016-09-29] MEDS: DABIGATRAN 150 MG PO SCH ×2 (09:23→18:40)
[2016-09-29] MEDS: Acetaminophen 500 MG Tab PO PRN (09:24)
[2016-09-29] MEDS: UBIDECARENONE 100 MG PO SCH ×2 (09:27→18:40)
[2016-09-29] MEDS: OMEGA FISH OIL PO SCH (18:40)
[2016-09-29] MEDS: ZINC GLUCONATE PO SCH (18:41)
[2016-09-29] MEDS: MAGNESIUM OXIDE PO SCH (18:41)
[2016-09-29] MEDS: [UNRECOGNIZED DRUG - OTHER] PO SCH (18:41)
[2016-09-29] MEDS: CALCIUM CARBONATE PO SCH (18:41)
[2016-09-30] MEDS: LEVOTHYROXINE 75 MCG PO SCH (06:56)
[2016-09-30] MEDS: UBIDECARENONE 100 MG PO SCH ×2 (09:05→18:02)
[2016-09-30] MEDS: DABIGATRAN 150 MG PO SCH ×2 (09:06→18:01)
[2016-09-30] MEDS: CHOLECALCIFEROL 5000 UNIT PO SCH (09:06)
[2016-09-30] MEDS: CLOBETASOL 0.05% TOP SCH ×2 (09:07→23:15)
[2016-09-30] MEDS: Betamethasone Dipropionate/Clotrimazole 0.05-1% Crm 15 GM Tube TOP SCH ×2 (09:07→23:15)
[2016-09-30] MEDS: Acetaminophen 500 MG Tab PO PRN (09:12)
[2016-09-30] MEDS: OMEGA FISH OIL PO SCH (18:01)
[2016-09-30] MEDS: CALCIUM CARBONATE PO SCH (18:01)
[2016-09-30] MEDS: MAGNESIUM OXIDE PO SCH (18:01)
[2016-09-30] MEDS: [UNRECOGNIZED DRUG - OTHER] PO SCH (18:01)
[2016-09-30] MEDS: ZINC GLUCONATE PO SCH (18:01)
[2016-10-01] MEDS: LEVOTHYROXINE 75 MCG PO SCH (06:05)
[2016-10-01] MEDS: Betamethasone Dipropionate/Clotrimazole 0.05-1% Crm 15 GM Tube TOP SCH ×2 (10:00→23:21)
[2016-10-01] MEDS: CLOBETASOL 0.05% TOP SCH ×2 (10:01→23:21)
[2016-10-01] MEDS: DABIGATRAN 150 MG PO SCH ×2 (10:01→18:51)
[2016-10-01] MEDS: CHOLECALCIFEROL 5000 UNIT PO SCH (10:03)
[2016-10-01] MEDS: UBIDECARENONE 100 MG PO SCH ×2 (10:03→18:52)
[2016-10-01] MEDS: HYPROMELLOSE EYEBOTH PRN (10:04)
[2016-10-01] MEDS: DEXTRAN EYEBOTH PRN (10:04)
[2016-10-01] MEDS: MAGNESIUM OXIDE PO SCH (18:50)
[2016-10-01] MEDS: ZINC GLUCONATE PO SCH (18:50)
[2016-10-01] MEDS: CALCIUM CARBONATE PO SCH (18:50)
[2016-10-01] MEDS: OMEGA FISH OIL PO SCH (18:51)
[2016-10-01] MEDS: [UNRECOGNIZED DRUG - OTHER] PO SCH (18:52)
[2016-10-02] MEDS: LEVOTHYROXINE 75 MCG PO SCH (06:03)
[2016-10-02] MEDS: CHOLECALCIFEROL 5000 UNIT PO SCH (09:43)
[2016-10-02] MEDS: CLOBETASOL 0.05% TOP SCH ×2 (09:44→23:13)
[2016-10-02] MEDS: DEXTRAN EYEBOTH PRN (09:45)
[2016-10-02] MEDS: HYPROMELLOSE EYEBOTH PRN (09:45)
[2016-10-02] MEDS: Betamethasone Dipropionate/Clotrimazole 0.05-1% Crm 15 GM Tube TOP SCH ×2 (09:45→23:14)
[2016-10-02] MEDS: DABIGATRAN 150 MG PO SCH ×2 (09:46→18:18)
[2016-10-02] MEDS: UBIDECARENONE 100 MG PO SCH ×2 (09:47→18:20)
[2016-10-02] MEDS: CALCIUM CARBONATE PO SCH (18:18)
[2016-10-02] MEDS: ZINC GLUCONATE PO SCH (18:18)
[2016-10-02] MEDS: MAGNESIUM OXIDE PO SCH (18:18)
[2016-10-02] MEDS: [UNRECOGNIZED DRUG - OTHER] PO SCH (18:19)
[2016-10-02] MEDS: OMEGA FISH OIL PO SCH (18:19)
[2016-10-02] MEDS: Acetaminophen 500 MG Tab PO PRN (18:29)
[2016-10-03] MEDS: LEVOTHYROXINE 75 MCG PO SCH ×2 (05:50→06:15)
[2016-10-03] MEDS: DABIGATRAN 150 MG PO SCH ×2 (09:12→18:17)
[2016-10-03] MEDS: UBIDECARENONE 100 MG PO SCH ×2 (09:13→18:17)
[2016-10-03] MEDS: CHOLECALCIFEROL 5000 UNIT PO SCH (09:13)
[2016-10-03] MEDS: Acetaminophen 500 MG Tab PO PRN (09:14)
[2016-10-03] MEDS: [UNRECOGNIZED DRUG - OTHER] PO SCH (18:17)
[2016-10-03] MEDS: ZINC GLUCONATE PO SCH (18:18)
[2016-10-03] MEDS: MAGNESIUM OXIDE PO SCH (18:18)
[2016-10-03] MEDS: OMEGA FISH OIL PO SCH (18:18)
[2016-10-03] MEDS: CALCIUM CARBONATE PO SCH (18:18)
[2016-10-03] MEDS: Clobetasol 0.05% Crm 30 GM Tube TOP SCH ×2 (18:59→22:58)
[2016-10-03] MEDS: Betamethasone Dipropionate/Clotrimazole 0.05-1% Crm 15 GM Tube TOP SCH (22:58)
[2016-10-04] MEDS: Acetaminophen 500 MG Tab PO PRN (09:12)
[2016-10-04] MEDS: UBIDECARENONE 100 MG PO SCH ×2 (09:13→18:04)
[2016-10-04] MEDS: CHOLECALCIFEROL 5000 UNIT PO SCH (09:13)
[2016-10-04] MEDS: DABIGATRAN 150 MG PO SCH ×2 (09:13→18:03)
[2016-10-04] MEDS: Clobetasol 0.05% Crm 30 GM Tube TOP SCH ×2 (09:14→23:05)
[2016-10-04] MEDS: Betamethasone Dipropionate/Clotrimazole 0.05-1% Crm 15 GM Tube TOP SCH ×2 (09:14→23:05)
[2016-10-04] MEDS: MAGNESIUM OXIDE PO SCH (18:03)
[2016-10-04] MEDS: CALCIUM CARBONATE PO SCH (18:03)
[2016-10-04] MEDS: [UNRECOGNIZED DRUG - OTHER] PO SCH (18:03)
[2016-10-04] MEDS: ZINC GLUCONATE PO SCH (18:03)
[2016-10-04] MEDS: OMEGA FISH OIL PO SCH (18:04)
[2016-10-05] MEDS: LEVOTHYROXINE 75 MCG PO SCH (06:51)
[2016-10-05] MEDS: Acetaminophen 500 MG Tab PO PRN (09:35)
[2016-10-05] MEDS: DABIGATRAN 150 MG PO SCH ×2 (09:37→18:16)
[2016-10-05] MEDS: UBIDECARENONE 100 MG PO SCH ×2 (09:37→18:16)
[2016-10-05] MEDS: Clobetasol 0.05% Crm 30 GM Tube TOP SCH ×2 (09:38→23:09)
[2016-10-05] MEDS: CHOLECALCIFEROL 5000 UNIT PO SCH (09:38)
[2016-10-05] MEDS: Betamethasone Dipropionate/Clotrimazole 0.05-1% Crm 15 GM Tube TOP SCH ×2 (09:39→23:09)
[2016-10-05] MEDS: [UNRECOGNIZED DRUG - OTHER] PO SCH (18:16)
[2016-10-05] MEDS: OMEGA FISH OIL PO SCH (18:16)
[2016-10-05] MEDS: CALCIUM CARBONATE PO SCH (18:17)
[2016-10-05] MEDS: ZINC GLUCONATE PO SCH (18:17)
[2016-10-05] MEDS: MAGNESIUM OXIDE PO SCH (18:17)
[2016-10-06] MEDS: CHOLECALCIFEROL 5000 UNIT PO SCH ×2 (05:54→09:09)
[2016-10-06] MEDS: LEVOTHYROXINE 75 MCG PO SCH ×2 (05:55→14:04)
[2016-10-06] MEDS: DABIGATRAN 150 MG PO SCH ×3 (05:58→18:07)
[2016-10-06] MEDS: UBIDECARENONE 100 MG PO SCH ×3 (05:59→18:08)
[2016-10-06] MEDS: Acetaminophen 500 MG Tab PO PRN (06:03)
[2016-10-06] MEDS: Clobetasol 0.05% Crm 30 GM Tube TOP SCH (09:09)
[2016-10-06] MEDS: Betamethasone Dipropionate/Clotrimazole 0.05-1% Crm 15 GM Tube TOP SCH (09:10)
[2016-10-06] MEDS: LIDOCAINE 2% TOP PRN ×2 (14:04→22:56)
[2016-10-06] MEDS: [UNRECOGNIZED DRUG - OTHER] TOP PRN ×2 (14:04→22:56)
[2016-10-06] MEDS: CALCIUM CARBONATE PO SCH (18:06)
[2016-10-06] MEDS: MAGNESIUM OXIDE PO SCH (18:06)
[2016-10-06] MEDS: ZINC GLUCONATE PO SCH (18:06)
[2016-10-06] MEDS: OMEGA FISH OIL PO SCH (18:07)
[2016-10-06] MEDS: HYPROMELLOSE EYEBOTH PRN (18:08)
[2016-10-06] MEDS: DEXTRAN EYEBOTH PRN (18:08)
[2016-10-06] MEDS: [UNRECOGNIZED DRUG - OTHER] PO SCH (18:08)
[2016-10-07] MEDS: [UNRECOGNIZED DRUG - OTHER] TOP PRN ×4 (01:22→22:49)
[2016-10-07] MEDS: LIDOCAINE 2% TOP PRN ×4 (01:22→22:49)
[2016-10-07] MEDS: LEVOTHYROXINE 75 MCG PO SCH ×2 (05:54→07:00)
[2016-10-07] MEDS: CHOLECALCIFEROL 5000 UNIT PO SCH (08:59)
[2016-10-07] MEDS: Acetaminophen 500 MG Tab PO PRN (08:59)
[2016-10-07] MEDS: UBIDECARENONE 100 MG PO SCH ×2 (09:00→18:05)
[2016-10-07] MEDS: DABIGATRAN 150 MG PO SCH ×2 (09:00→18:05)
[2016-10-07] MEDS: ZINC GLUCONATE PO SCH (18:06)
[2016-10-07] MEDS: OMEGA FISH OIL PO SCH (18:06)
[2016-10-07] MEDS: MAGNESIUM OXIDE PO SCH (18:06)
[2016-10-07] MEDS: CALCIUM CARBONATE PO SCH (18:06)
[2016-10-07] MEDS: [UNRECOGNIZED DRUG - OTHER] PO SCH (18:06)
[2016-10-08] MEDS: LEVOTHYROXINE 75 MCG PO SCH (06:01)
[2016-10-08] MEDS: LIDOCAINE 2% TOP PRN ×4 (08:59→23:14)
[2016-10-08] MEDS: [UNRECOGNIZED DRUG - OTHER] TOP PRN ×4 (08:59→23:14)
[2016-10-08] MEDS: DABIGATRAN 150 MG PO SCH ×2 (09:03→18:03)
[2016-10-08] MEDS: UBIDECARENONE 100 MG PO SCH ×2 (09:03→18:03)
[2016-10-08] MEDS: CHOLECALCIFEROL 5000 UNIT PO SCH (09:04)
[2016-10-08] MEDS: Acetaminophen 500 MG Tab PO PRN (09:04)
[2016-10-08] MEDS: [UNRECOGNIZED DRUG - OTHER] PO SCH (18:03)
[2016-10-08] MEDS: MAGNESIUM OXIDE PO SCH (18:03)
[2016-10-08] MEDS: ZINC GLUCONATE PO SCH (18:03)
[2016-10-08] MEDS: CALCIUM CARBONATE PO SCH (18:03)
[2016-10-08] MEDS: OMEGA FISH OIL PO SCH (18:03)
[2016-10-09] MEDS: LEVOTHYROXINE 75 MCG PO SCH (06:13)
[2016-10-09] MEDS: DABIGATRAN 150 MG PO SCH ×2 (09:37→18:41)
[2016-10-09] MEDS: CHOLECALCIFEROL 5000 UNIT PO SCH (09:37)
[2016-10-09] MEDS: UBIDECARENONE 100 MG PO SCH ×2 (09:38→18:39)
[2016-10-09] MEDS: Acetaminophen 500 MG Tab PO PRN (09:39)
[2016-10-09] MEDS: LIDOCAINE 2% TOP PRN ×4 (09:40→22:50)
[2016-10-09] MEDS: [UNRECOGNIZED DRUG - OTHER] TOP PRN ×4 (09:40→22:50)
[2016-10-09] MEDS: OMEGA FISH OIL PO SCH (18:40)
[2016-10-09] MEDS: CALCIUM CARBONATE PO SCH (18:40)
[2016-10-09] MEDS: ZINC GLUCONATE PO SCH (18:40)
[2016-10-09] MEDS: MAGNESIUM OXIDE PO SCH (18:40)
[2016-10-09] MEDS: [UNRECOGNIZED DRUG - OTHER] PO SCH (18:40)
[2016-10-10] MEDS: LEVOTHYROXINE 75 MCG PO SCH (06:43)
[2016-10-10] MEDS: CHOLECALCIFEROL 5000 UNIT PO SCH (09:06)
[2016-10-10] MEDS: UBIDECARENONE 100 MG PO SCH ×2 (09:07→18:35)
[2016-10-10] MEDS: DABIGATRAN 150 MG PO SCH ×2 (09:07→18:35)
[2016-10-10] MEDS: Acetaminophen 500 MG Tab PO PRN (09:07)
[2016-10-10] MEDS: LIDOCAINE 2% TOP PRN ×3 (09:09→23:00)
[2016-10-10] MEDS: [UNRECOGNIZED DRUG - OTHER] TOP PRN ×3 (09:09→23:00)
[2016-10-10] MEDS: ZINC GLUCONATE PO SCH (18:34)
[2016-10-10] MEDS: MAGNESIUM OXIDE PO SCH (18:34)
[2016-10-10] MEDS: CALCIUM CARBONATE PO SCH (18:34)
[2016-10-10] MEDS: [UNRECOGNIZED DRUG - OTHER] PO SCH (18:34)
[2016-10-10] MEDS: OMEGA FISH OIL PO SCH (18:34)
[2016-10-11] MEDS: DABIGATRAN 150 MG PO SCH ×2 (10:06→18:04)
[2016-10-11] MEDS: CHOLECALCIFEROL 5000 UNIT PO SCH (10:06)
[2016-10-11] MEDS: Acetaminophen 500 MG Tab PO PRN ×2 (10:07→17:21)
[2016-10-11] MEDS: UBIDECARENONE 100 MG PO SCH ×2 (10:07→18:03)
[2016-10-11] MEDS: [UNRECOGNIZED DRUG - OTHER] TOP PRN ×4 (10:08→23:25)
[2016-10-11] MEDS: DEXTRAN EYEBOTH PRN (10:08)
[2016-10-11] MEDS: LIDOCAINE 2% TOP PRN ×4 (10:08→23:25)
[2016-10-11] MEDS: HYPROMELLOSE EYEBOTH PRN (10:08)
[2016-10-11] MEDS: OMEGA FISH OIL PO SCH (18:04)
[2016-10-11] MEDS: MAGNESIUM OXIDE PO SCH (18:04)
[2016-10-11] MEDS: ZINC GLUCONATE PO SCH (18:04)
[2016-10-11] MEDS: CALCIUM CARBONATE PO SCH (18:04)
[2016-10-11] MEDS: [UNRECOGNIZED DRUG - OTHER] PO SCH (18:04)
[2016-10-12] MEDS: LEVOTHYROXINE 75 MCG PO SCH (06:10)
[2016-10-12] MEDS: DABIGATRAN 150 MG PO SCH ×2 (09:31→18:01)
[2016-10-12] MEDS: UBIDECARENONE 100 MG PO SCH ×2 (09:31→18:01)
[2016-10-12] MEDS: CHOLECALCIFEROL 5000 UNIT PO SCH (09:31)
[2016-10-12] MEDS: Acetaminophen 500 MG Tab PO PRN (09:31)
[2016-10-12] MEDS: LIDOCAINE 2% TOP PRN ×3 (09:32→22:56)
[2016-10-12] MEDS: [UNRECOGNIZED DRUG - OTHER] TOP PRN ×3 (09:32→22:56)
[2016-10-12] MEDS: ZINC GLUCONATE PO SCH (18:01)
[2016-10-12] MEDS: [UNRECOGNIZED DRUG - OTHER] PO SCH (18:01)
[2016-10-12] MEDS: OMEGA FISH OIL PO SCH (18:01)
[2016-10-12] MEDS: MAGNESIUM OXIDE PO SCH (18:01)
[2016-10-12] MEDS: CALCIUM CARBONATE PO SCH (18:01)
[2016-10-13] MEDS: LEVOTHYROXINE 75 MCG PO SCH (06:08)
[2016-10-13] MEDS: UBIDECARENONE 100 MG PO SCH ×2 (10:19→18:14)
[2016-10-13] MEDS: DABIGATRAN 150 MG PO SCH ×2 (10:19→18:14)
[2016-10-13] MEDS: Acetaminophen 500 MG Tab PO PRN (10:20)
[2016-10-13] MEDS: CHOLECALCIFEROL 5000 UNIT PO SCH (10:20)
[2016-10-13] MEDS: [UNRECOGNIZED DRUG - OTHER] TOP PRN ×4 (10:21→23:24)
[2016-10-13] MEDS: LIDOCAINE 2% TOP PRN ×4 (10:21→23:24)
[2016-10-13] MEDS: OMEGA FISH OIL PO SCH (18:14)
[2016-10-13] MEDS: [UNRECOGNIZED DRUG - OTHER] PO SCH (18:14)
[2016-10-13] MEDS: CALCIUM CARBONATE PO SCH (18:15)
[2016-10-13] MEDS: MAGNESIUM OXIDE PO SCH (18:15)
[2016-10-13] MEDS: ZINC GLUCONATE PO SCH (18:15)
[2016-10-14] MEDS: LEVOTHYROXINE 75 MCG PO SCH (06:35)
[2016-10-14] MEDS: [UNRECOGNIZED DRUG - OTHER] TOP PRN ×3 (09:15→22:32)
[2016-10-14] MEDS: LIDOCAINE 2% TOP PRN ×3 (09:15→22:32)
[2016-10-14] MEDS: Acetaminophen 500 MG Tab PO PRN (09:15)
[2016-10-14] MEDS: DABIGATRAN 150 MG PO SCH ×2 (09:15→18:39)
[2016-10-14] MEDS: CHOLECALCIFEROL 5000 UNIT PO SCH (09:16)
[2016-10-14] MEDS: UBIDECARENONE 100 MG PO SCH ×2 (09:16→18:40)
[2016-10-14] MEDS: OMEGA FISH OIL PO SCH (18:39)
[2016-10-14] MEDS: ZINC GLUCONATE PO SCH (18:40)
[2016-10-14] MEDS: MAGNESIUM OXIDE PO SCH (18:40)
[2016-10-14] MEDS: [UNRECOGNIZED DRUG - OTHER] PO SCH (18:40)
[2016-10-14] MEDS: CALCIUM CARBONATE PO SCH (18:40)
[2016-10-15] MEDS: LEVOTHYROXINE 75 MCG PO SCH (06:40)
[2016-10-15] MEDS: UBIDECARENONE 100 MG PO SCH ×2 (09:22→18:12)
[2016-10-15] MEDS: CHOLECALCIFEROL 5000 UNIT PO SCH (09:23)
[2016-10-15] MEDS: DABIGATRAN 150 MG PO SCH ×2 (09:23→18:11)
[2016-10-15] MEDS: Acetaminophen 500 MG Tab PO PRN (09:24)
[2016-10-15] MEDS: LIDOCAINE 2% TOP PRN ×3 (09:25→23:19)
[2016-10-15] MEDS: [UNRECOGNIZED DRUG - OTHER] TOP PRN ×3 (09:25→23:19)
[2016-10-15] MEDS: OMEGA FISH OIL PO SCH (18:11)
[2016-10-15] MEDS: MAGNESIUM OXIDE PO SCH (18:12)
[2016-10-15] MEDS: CALCIUM CARBONATE PO SCH (18:12)
[2016-10-15] MEDS: ZINC GLUCONATE PO SCH (18:12)
[2016-10-15] MEDS: [UNRECOGNIZED DRUG - OTHER] PO SCH (18:12)
[2016-10-16] MEDS: LEVOTHYROXINE 75 MCG PO SCH (06:13)
[2016-10-16] MEDS: DABIGATRAN 150 MG PO SCH ×2 (09:26→18:14)
[2016-10-16] MEDS: [UNRECOGNIZED DRUG - OTHER] TOP PRN ×3 (09:27→23:14)
[2016-10-16] MEDS: UBIDECARENONE 100 MG PO SCH ×2 (09:27→18:15)
[2016-10-16] MEDS: LIDOCAINE 2% TOP PRN ×3 (09:27→23:14)
[2016-10-16] MEDS: CHOLECALCIFEROL 2000 UNIT PO SCH (09:27)
[2016-10-16] MEDS: MAGNESIUM OXIDE PO SCH (18:15)
[2016-10-16] MEDS: CALCIUM CARBONATE PO SCH (18:15)
[2016-10-16] MEDS: ZINC GLUCONATE PO SCH (18:15)
[2016-10-16] MEDS: OMEGA FISH OIL PO SCH (18:15)
[2016-10-16] MEDS: [UNRECOGNIZED DRUG - OTHER] PO SCH (18:15)
[2016-10-17] MEDS: LEVOTHYROXINE 75 MCG PO SCH (06:14)
[2016-10-17] MEDS: CHOLECALCIFEROL 2000 UNIT PO SCH (09:59)
[2016-10-17] MEDS: UBIDECARENONE 100 MG PO SCH ×2 (09:59→18:18)
[2016-10-17] MEDS: DABIGATRAN 150 MG PO SCH ×2 (09:59→18:18)
[2016-10-17] MEDS: [UNRECOGNIZED DRUG - OTHER] TOP PRN ×3 (10:00→22:55)
[2016-10-17] MEDS: Acetaminophen 500 MG Tab PO PRN (10:00)
[2016-10-17] MEDS: LIDOCAINE 2% TOP PRN ×3 (10:00→22:55)
[2016-10-17] MEDS: OMEGA FISH OIL PO SCH (18:17)
[2016-10-17] MEDS: ZINC GLUCONATE PO SCH (18:17)
[2016-10-17] MEDS: CALCIUM CARBONATE PO SCH (18:17)
[2016-10-17] MEDS: [UNRECOGNIZED DRUG - OTHER] PO SCH (18:17)
[2016-10-17] MEDS: MAGNESIUM OXIDE PO SCH (18:17)
[2016-10-18] MEDS: UBIDECARENONE 100 MG PO SCH ×2 (09:50→18:20)
[2016-10-18] MEDS: CHOLECALCIFEROL 2000 UNIT PO SCH (09:50)
[2016-10-18] MEDS: LIDOCAINE 2% TOP PRN ×3 (09:51→23:24)
[2016-10-18] MEDS: [UNRECOGNIZED DRUG - OTHER] TOP PRN ×3 (09:51→23:24)
[2016-10-18] MEDS: DABIGATRAN 150 MG PO SCH ×2 (09:52→18:19)
[2016-10-18] MEDS: Acetaminophen 500 MG Tab PO PRN (09:52)
[2016-10-18] MEDS: CALCIUM CARBONATE PO SCH (18:19)
[2016-10-18] MEDS: ZINC GLUCONATE PO SCH (18:19)
[2016-10-18] MEDS: MAGNESIUM OXIDE PO SCH (18:19)
[2016-10-18] MEDS: [UNRECOGNIZED DRUG - OTHER] PO SCH (18:20)
[2016-10-18] MEDS: OMEGA FISH OIL PO SCH (18:20)
[2016-10-18] MEDS: DEXTRAN EYEBOTH PRN (18:21)
[2016-10-18] MEDS: HYPROMELLOSE EYEBOTH PRN (18:21)
[2016-10-19] MEDS: LEVOTHYROXINE 75 MCG PO SCH (06:04)
[2016-10-19] MEDS: Acetaminophen 500 MG Tab PO PRN (10:37)
[2016-10-19] MEDS: LIDOCAINE 2% TOP PRN ×2 (10:37→23:10)
[2016-10-19] MEDS: [UNRECOGNIZED DRUG - OTHER] TOP PRN ×2 (10:37→23:10)
[2016-10-19] MEDS: CHOLECALCIFEROL 2000 UNIT PO SCH (10:38)
[2016-10-19] MEDS: UBIDECARENONE 100 MG PO SCH ×2 (10:38→18:12)
[2016-10-19] MEDS: DABIGATRAN 150 MG PO SCH ×2 (10:39→18:12)
[2016-10-19] MEDS: [UNRECOGNIZED DRUG - OTHER] PO SCH (18:12)
[2016-10-19] MEDS: OMEGA FISH OIL PO SCH (18:13)
[2016-10-19] MEDS: ZINC GLUCONATE PO SCH (18:13)
[2016-10-19] MEDS: MAGNESIUM OXIDE PO SCH (18:13)
[2016-10-19] MEDS: CALCIUM CARBONATE PO SCH (18:13)
[2016-10-20] MEDS: LEVOTHYROXINE 75 MCG PO SCH ×2 (05:27→06:02)
[2016-10-20] MEDS: CHOLECALCIFEROL 2000 UNIT PO SCH (10:26)
[2016-10-20] MEDS: Acetaminophen 500 MG Tab PO PRN (10:26)
[2016-10-20] MEDS: UBIDECARENONE 100 MG PO SCH ×2 (10:27→18:10)
[2016-10-20] MEDS: DABIGATRAN 150 MG PO SCH ×2 (10:27→18:10)
[2016-10-20] MEDS: [UNRECOGNIZED DRUG - OTHER] TOP PRN ×3 (10:28→23:30)
[2016-10-20] MEDS: LIDOCAINE 2% TOP PRN ×3 (10:28→23:30)
[2016-10-20] MEDS: CALCIUM CARBONATE PO SCH (18:10)
[2016-10-20] MEDS: MAGNESIUM OXIDE PO SCH (18:10)
[2016-10-20] MEDS: ZINC GLUCONATE PO SCH (18:10)
[2016-10-20] MEDS: OMEGA FISH OIL PO SCH (18:11)
[2016-10-20] MEDS: [UNRECOGNIZED DRUG - OTHER] PO SCH (18:11)
[2016-10-21] MEDS: LEVOTHYROXINE 75 MCG PO SCH (06:33)
[2016-10-21] MEDS: UBIDECARENONE 100 MG PO SCH ×2 (10:25→18:06)
[2016-10-21] MEDS: CHOLECALCIFEROL 2000 UNIT PO SCH (10:25)
[2016-10-21] MEDS: DABIGATRAN 150 MG PO SCH ×2 (10:26→18:06)
[2016-10-21] MEDS: [UNRECOGNIZED DRUG - OTHER] TOP PRN (10:26)
[2016-10-21] MEDS: Acetaminophen 500 MG Tab PO PRN (10:26)
[2016-10-21] MEDS: LIDOCAINE 2% TOP PRN (10:26)
[2016-10-21] MEDS: MAGNESIUM OXIDE PO SCH (18:07)
[2016-10-21] MEDS: OMEGA FISH OIL PO SCH (18:07)
[2016-10-21] MEDS: [UNRECOGNIZED DRUG - OTHER] PO SCH (18:07)
[2016-10-21] MEDS: CALCIUM CARBONATE PO SCH (18:07)
[2016-10-21] MEDS: ZINC GLUCONATE PO SCH (18:07)
[2016-10-22] MEDS: LEVOTHYROXINE 75 MCG PO SCH (06:21)
[2016-10-22] MEDS: CHOLECALCIFEROL 2000 UNIT PO SCH (10:17)
[2016-10-22] MEDS: UBIDECARENONE 100 MG PO SCH ×2 (10:17→18:08)
[2016-10-22] MEDS: Acetaminophen 500 MG Tab PO PRN (10:17)
[2016-10-22] MEDS: DABIGATRAN 150 MG PO SCH ×2 (10:18→18:07)
[2016-10-22] MEDS: ZINC GLUCONATE PO SCH (18:08)
[2016-10-22] MEDS: CALCIUM CARBONATE PO SCH (18:08)
[2016-10-22] MEDS: MAGNESIUM OXIDE PO SCH (18:08)
[2016-10-22] MEDS: OMEGA FISH OIL PO SCH (18:09)
[2016-10-22] MEDS: [UNRECOGNIZED DRUG - OTHER] PO SCH (18:09)
[2016-10-22] MEDS: [UNRECOGNIZED DRUG - OTHER] TOP PRN (22:56)
[2016-10-22] MEDS: LIDOCAINE 2% TOP PRN (22:56)
[2016-10-23] MEDS: LEVOTHYROXINE 75 MCG PO SCH (06:34)
[2016-10-23] MEDS: UBIDECARENONE 100 MG PO SCH ×2 (09:33→17:59)
[2016-10-23] MEDS: CHOLECALCIFEROL 2000 UNIT PO SCH (09:34)
[2016-10-23] MEDS: DABIGATRAN 150 MG PO SCH ×2 (09:35→17:59)
[2016-10-23] MEDS: Acetaminophen 500 MG Tab PO PRN (09:40)
[2016-10-23] MEDS: ZINC GLUCONATE PO SCH (17:59)
[2016-10-23] MEDS: [UNRECOGNIZED DRUG - OTHER] PO SCH (17:59)
[2016-10-23] MEDS: OMEGA FISH OIL PO SCH (17:59)
[2016-10-23] MEDS: CALCIUM CARBONATE PO SCH (17:59)
[2016-10-23] MEDS: MAGNESIUM OXIDE PO SCH (17:59)
[2016-10-24] MEDS: LEVOTHYROXINE 75 MCG PO SCH (06:32)
[2016-10-24] MEDS: DABIGATRAN 150 MG PO SCH ×2 (09:41→18:06)
[2016-10-24] MEDS: Acetaminophen 500 MG Tab PO PRN (09:42)
[2016-10-24] MEDS: UBIDECARENONE 100 MG PO SCH ×2 (09:42→18:06)
[2016-10-24] MEDS: CHOLECALCIFEROL 2000 UNIT PO SCH (09:42)
[2016-10-24] MEDS: Menthol/Zinc Oxide Ointment 3.5 GM Tube TOP PRN (09:44)
[2016-10-24] MEDS: LIDOCAINE 2% TOP PRN ×2 (13:09→23:50)
[2016-10-24] MEDS: [UNRECOGNIZED DRUG - OTHER] TOP PRN ×2 (13:09→23:50)
[2016-10-24] MEDS: [UNRECOGNIZED DRUG - OTHER] PO SCH (18:06)
[2016-10-24] MEDS: ZINC GLUCONATE PO SCH (18:07)
[2016-10-24] MEDS: MAGNESIUM OXIDE PO SCH (18:07)
[2016-10-24] MEDS: CALCIUM CARBONATE PO SCH (18:07)
[2016-10-24] MEDS: OMEGA FISH OIL PO SCH (18:07)
[2016-10-25] MEDS: Acetaminophen 500 MG Tab PO PRN (10:42)
[2016-10-25] MEDS: DABIGATRAN 150 MG PO SCH ×2 (10:43→18:31)
[2016-10-25] MEDS: UBIDECARENONE 100 MG PO SCH ×2 (10:43→18:32)
[2016-10-25] MEDS: CHOLECALCIFEROL 2000 UNIT PO SCH (10:43)
[2016-10-25] MEDS: [UNRECOGNIZED DRUG - OTHER] TOP PRN (10:44)
[2016-10-25] MEDS: LIDOCAINE 2% TOP PRN (10:44)
[2016-10-25] MEDS: ZINC GLUCONATE PO SCH (18:31)
[2016-10-25] MEDS: MAGNESIUM OXIDE PO SCH (18:31)
[2016-10-25] MEDS: [UNRECOGNIZED DRUG - OTHER] PO SCH (18:31)
[2016-10-25] MEDS: CALCIUM CARBONATE PO SCH (18:31)
[2016-10-25] MEDS: OMEGA FISH OIL PO SCH (18:32)
[2016-10-26] MEDS: LEVOTHYROXINE 75 MCG PO SCH (09:13)
[2016-10-26] MEDS: DABIGATRAN 150 MG PO SCH ×2 (10:13→18:48)
[2016-10-26] MEDS: UBIDECARENONE 100 MG PO SCH ×2 (10:14→18:49)
[2016-10-26] MEDS: CHOLECALCIFEROL 2000 UNIT PO SCH (10:14)
[2016-10-26] MEDS: Acetaminophen 500 MG Tab PO PRN (10:14)
[2016-10-26] MEDS: LIDOCAINE 2% TOP PRN (10:15)
[2016-10-26] MEDS: [UNRECOGNIZED DRUG - OTHER] TOP PRN (10:15)
[2016-10-26] MEDS: OMEGA FISH OIL PO SCH (18:48)
[2016-10-26] MEDS: ZINC GLUCONATE PO SCH (18:49)
[2016-10-26] MEDS: [UNRECOGNIZED DRUG - OTHER] PO SCH (18:49)
[2016-10-26] MEDS: MAGNESIUM OXIDE PO SCH (18:49)
[2016-10-26] MEDS: CALCIUM CARBONATE PO SCH (18:49)
[2016-10-27] MEDS: LEVOTHYROXINE 75 MCG PO SCH (06:08)
[2016-10-27] MEDS: Acetaminophen 500 MG Tab PO PRN (10:46)
[2016-10-27] MEDS: DABIGATRAN 150 MG PO SCH ×2 (10:46→18:07)
[2016-10-27] MEDS: UBIDECARENONE 100 MG PO SCH ×2 (10:47→18:08)
[2016-10-27] MEDS: CHOLECALCIFEROL 2000 UNIT PO SCH (10:47)
[2016-10-27] MEDS: [UNRECOGNIZED DRUG - OTHER] PO SCH (18:07)
[2016-10-27] MEDS: OMEGA FISH OIL PO SCH (18:08)
[2016-10-27] MEDS: ZINC GLUCONATE PO SCH (18:08)
[2016-10-27] MEDS: MAGNESIUM OXIDE PO SCH (18:08)
[2016-10-27] MEDS: CALCIUM CARBONATE PO SCH (18:08)
[2016-10-28] MEDS: Acetaminophen 500 MG Tab PO PRN ×2 (02:15→09:44)
[2016-10-28] MEDS: LEVOTHYROXINE 75 MCG PO SCH (06:03)
--- NOTE | 2016-10-28 08:23 | PN ---
Progress Note for EMILY SHEETS Date: 10/27/2016 Room #: SUBJECTIVE: An 86-year-old, seen today for monthly rounds. I had seen her and visited with her earlier this month after she had seen the storeroom clerk and had a biopsy for a vulvar irritation. The biopsy came back okay. There was no cancer. The burning and fiery pain is improved, but it is still burning, no itching. Her daughter does her laundry, they tried scent free detergent. She is using different underwear and still she has the burning and irritation. Otherwise, she has no chest pain. No trouble breathing. She is still using a Calmoseptine as needed. She had finished a 2-week course of Lotrisone. OBJECTIVE: Vital Signs: Temperature is 97.6, pulse 60, blood pressure 133/65, respiratory rate 18, and O2 of 95% on room air. General: She is in no acute distress. Heart: Irregularly irregular with a murmur. Lung sounds are clear to auscultation bilaterally without crackles or wheezes. Extremities: Warm and dry. No edema. Mental Status: Alert and orientated x3. ASSESSMENT AND PLAN: 1. Atrial fibrillation, rate controlled on Pradaxa. Continue the same. 2. Hypothyroidism, treated. 3. Essential hypertension, controlled. 4. Osteoarthritis which affects her ability to do ADLs and mobility. 5. Mild thrombocytopenia. 6. Chronic vulvar vaginal irritation, it is mostly vulvar burning currently. PLAN: At this point, she is already seeing Gynecology and had biopsy. She has been on several different creams right now, barrier cream seems to be working the best. No lab work is due. We will recertify her again next month. MKA: 10/27/2016 12:39:45 MODL: 10/27/2016 13:19:30 /[id number]
[2016-10-28] MEDS: CHOLECALCIFEROL 2000 UNIT PO SCH (09:45)
[2016-10-28] MEDS: DABIGATRAN 150 MG PO SCH ×2 (09:45→18:19)
[2016-10-28] MEDS: UBIDECARENONE 100 MG PO SCH ×2 (09:46→18:18)
[2016-10-28] MEDS: LIDOCAINE 2% TOP PRN ×2 (09:46→22:34)
[2016-10-28] MEDS: [UNRECOGNIZED DRUG - OTHER] TOP PRN ×2 (09:46→22:34)
[2016-10-28] MEDS: MAGNESIUM OXIDE PO SCH (18:17)
[2016-10-28] MEDS: OMEGA FISH OIL PO SCH (18:17)
[2016-10-28] MEDS: CALCIUM CARBONATE PO SCH (18:17)
[2016-10-28] MEDS: ZINC GLUCONATE PO SCH (18:17)
[2016-10-28] MEDS: [UNRECOGNIZED DRUG - OTHER] PO SCH (18:18)
[2016-10-29] MEDS: LEVOTHYROXINE 75 MCG PO SCH (06:13)
[2016-10-29] MEDS: CHOLECALCIFEROL 2000 UNIT PO SCH (09:43)
[2016-10-29] MEDS: DABIGATRAN 150 MG PO SCH ×2 (09:43→18:22)
[2016-10-29] MEDS: UBIDECARENONE 100 MG PO SCH ×2 (09:44→18:21)
[2016-10-29] MEDS: LIDOCAINE 2% TOP PRN (09:44)
[2016-10-29] MEDS: [UNRECOGNIZED DRUG - OTHER] TOP PRN (09:44)
[2016-10-29] MEDS: Acetaminophen 500 MG Tab PO PRN (09:47)
[2016-10-29] MEDS: [UNRECOGNIZED DRUG - OTHER] PO SCH (18:21)
[2016-10-29] MEDS: CALCIUM CARBONATE PO SCH (18:22)
[2016-10-29] MEDS: MAGNESIUM OXIDE PO SCH (18:22)
[2016-10-29] MEDS: OMEGA FISH OIL PO SCH (18:22)
[2016-10-29] MEDS: ZINC GLUCONATE PO SCH (18:22)
[2016-10-30] MEDS: LEVOTHYROXINE 75 MCG PO SCH (06:22)
[2016-10-30] MEDS: [UNRECOGNIZED DRUG - OTHER] TOP PRN ×2 (10:06→23:03)
[2016-10-30] MEDS: LIDOCAINE 2% TOP PRN ×2 (10:06→23:03)
[2016-10-30] MEDS: UBIDECARENONE 100 MG PO SCH ×2 (10:06→18:36)
[2016-10-30] MEDS: CHOLECALCIFEROL 2000 UNIT PO SCH (10:07)
[2016-10-30] MEDS: DABIGATRAN 150 MG PO SCH ×2 (10:07→18:36)
[2016-10-30] MEDS: Acetaminophen 500 MG Tab PO PRN (10:08)
[2016-10-30] MEDS: ZINC GLUCONATE PO SCH (18:36)
[2016-10-30] MEDS: [UNRECOGNIZED DRUG - OTHER] PO SCH (18:36)
[2016-10-30] MEDS: CALCIUM CARBONATE PO SCH (18:36)
[2016-10-30] MEDS: OMEGA FISH OIL PO SCH (18:36)
[2016-10-30] MEDS: MAGNESIUM OXIDE PO SCH (18:36)
[2016-10-31] MEDS: LEVOTHYROXINE 75 MCG PO SCH (06:03)
[2016-10-31] MEDS: DABIGATRAN 150 MG PO SCH ×2 (09:29→19:42)
[2016-10-31] MEDS: Acetaminophen 500 MG Tab PO PRN (09:30)
[2016-10-31] MEDS: UBIDECARENONE 100 MG PO SCH ×2 (09:30→19:43)
[2016-10-31] MEDS: CHOLECALCIFEROL 2000 UNIT PO SCH (09:30)
[2016-10-31] MEDS: [UNRECOGNIZED DRUG - OTHER] TOP PRN ×2 (09:31→16:55)
[2016-10-31] MEDS: LIDOCAINE 2% TOP PRN ×2 (09:31→16:55)
[2016-10-31] MEDS: HYPROMELLOSE EYEBOTH PRN (09:40)
[2016-10-31] MEDS: DEXTRAN EYEBOTH PRN (09:40)
[2016-10-31] MEDS: MAGNESIUM OXIDE PO SCH (19:42)
[2016-10-31] MEDS: ZINC GLUCONATE PO SCH (19:42)
[2016-10-31] MEDS: CALCIUM CARBONATE PO SCH (19:42)
[2016-10-31] MEDS: OMEGA FISH OIL PO SCH (19:43)
[2016-10-31] MEDS: [UNRECOGNIZED DRUG - OTHER] PO SCH (19:43)
[2016-11-01] MEDS: DABIGATRAN 150 MG PO SCH ×2 (09:39→17:59)
[2016-11-01] MEDS: CHOLECALCIFEROL 2000 UNIT PO SCH (09:39)
[2016-11-01] MEDS: [UNRECOGNIZED DRUG - OTHER] TOP PRN (09:39)
[2016-11-01] MEDS: LIDOCAINE 2% TOP PRN (09:39)
[2016-11-01] MEDS: Acetaminophen 500 MG Tab PO PRN (09:40)
[2016-11-01] MEDS: UBIDECARENONE 100 MG PO SCH ×2 (09:40→18:00)
[2016-11-01] MEDS: OMEGA FISH OIL PO SCH (17:59)
[2016-11-01] MEDS: MAGNESIUM OXIDE PO SCH (18:00)
[2016-11-01] MEDS: CALCIUM CARBONATE PO SCH (18:00)
[2016-11-01] MEDS: [UNRECOGNIZED DRUG - OTHER] PO SCH (18:00)
[2016-11-01] MEDS: ZINC GLUCONATE PO SCH (18:00)
[2016-11-02] MEDS: UBIDECARENONE 100 MG PO SCH ×2 (09:37→18:04)
[2016-11-02] MEDS: Acetaminophen 500 MG Tab PO PRN (09:37)
[2016-11-02] MEDS: DABIGATRAN 150 MG PO SCH ×2 (09:37→18:04)
[2016-11-02] MEDS: LEVOTHYROXINE 75 MCG PO SCH (09:37)
[2016-11-02] MEDS: CHOLECALCIFEROL 2000 UNIT PO SCH (09:37)
[2016-11-02] MEDS: [UNRECOGNIZED DRUG - OTHER] TOP PRN ×2 (09:40→23:00)
[2016-11-02] MEDS: LIDOCAINE 2% TOP PRN ×2 (09:40→23:00)
[2016-11-02] MEDS: DEXTRAN EYEBOTH PRN (09:50)
[2016-11-02] MEDS: HYPROMELLOSE EYEBOTH PRN (09:50)
[2016-11-02] MEDS: ZINC GLUCONATE PO SCH (18:05)
[2016-11-02] MEDS: [UNRECOGNIZED DRUG - OTHER] PO SCH (18:05)
[2016-11-02] MEDS: CALCIUM CARBONATE PO SCH (18:05)
[2016-11-02] MEDS: MAGNESIUM OXIDE PO SCH (18:05)
[2016-11-02] MEDS: OMEGA FISH OIL PO SCH (18:05)
[2016-11-03] MEDS: LEVOTHYROXINE 75 MCG PO SCH (06:29)
[2016-11-03] MEDS: UBIDECARENONE 100 MG PO SCH ×2 (09:38→18:03)
[2016-11-03] MEDS: DABIGATRAN 150 MG PO SCH ×2 (09:38→18:02)
[2016-11-03] MEDS: CHOLECALCIFEROL 2000 UNIT PO SCH (09:38)
[2016-11-03] MEDS: LIDOCAINE 2% TOP PRN ×2 (09:39→23:15)
[2016-11-03] MEDS: [UNRECOGNIZED DRUG - OTHER] TOP PRN ×2 (09:39→23:15)
[2016-11-03] MEDS: Acetaminophen 500 MG Tab PO PRN (09:39)
[2016-11-03] MEDS: MAGNESIUM OXIDE PO SCH (18:03)
[2016-11-03] MEDS: CALCIUM CARBONATE PO SCH (18:03)
[2016-11-03] MEDS: ZINC GLUCONATE PO SCH (18:03)
[2016-11-03] MEDS: OMEGA FISH OIL PO SCH (18:03)
[2016-11-03] MEDS: [UNRECOGNIZED DRUG - OTHER] PO SCH (18:04)
[2016-11-04] MEDS: LEVOTHYROXINE 75 MCG PO SCH (06:12)
[2016-11-04] MEDS: DABIGATRAN 150 MG PO SCH ×2 (09:40→18:33)
[2016-11-04] MEDS: Acetaminophen 500 MG Tab PO PRN (09:40)
[2016-11-04] MEDS: LIDOCAINE 2% TOP PRN (09:41)
[2016-11-04] MEDS: CHOLECALCIFEROL 2000 UNIT PO SCH (09:41)
[2016-11-04] MEDS: [UNRECOGNIZED DRUG - OTHER] TOP PRN (09:41)
[2016-11-04] MEDS: UBIDECARENONE 100 MG PO SCH ×2 (09:41→18:33)
[2016-11-04] MEDS: OMEGA FISH OIL PO SCH (18:33)
[2016-11-04] MEDS: MAGNESIUM OXIDE PO SCH (18:34)
[2016-11-04] MEDS: [UNRECOGNIZED DRUG - OTHER] PO SCH (18:34)
[2016-11-04] MEDS: ZINC GLUCONATE PO SCH (18:34)
[2016-11-04] MEDS: CALCIUM CARBONATE PO SCH (18:34)
[2016-11-05] MEDS: LEVOTHYROXINE 75 MCG PO SCH (06:08)
[2016-11-05] MEDS: DABIGATRAN 150 MG PO SCH ×2 (09:06→18:33)
[2016-11-05] MEDS: LIDOCAINE 2% TOP PRN (09:06)
[2016-11-05] MEDS: [UNRECOGNIZED DRUG - OTHER] TOP PRN (09:06)
[2016-11-05] MEDS: UBIDECARENONE 100 MG PO SCH ×2 (09:06→18:34)
[2016-11-05] MEDS: CHOLECALCIFEROL 2000 UNIT PO SCH (09:06)
[2016-11-05] MEDS: Acetaminophen 500 MG Tab PO PRN (09:06)
[2016-11-05] MEDS: OMEGA FISH OIL PO SCH (18:34)
[2016-11-05] MEDS: ZINC GLUCONATE PO SCH (18:34)
[2016-11-05] MEDS: CALCIUM CARBONATE PO SCH (18:34)
[2016-11-05] MEDS: [UNRECOGNIZED DRUG - OTHER] PO SCH (18:34)
[2016-11-05] MEDS: MAGNESIUM OXIDE PO SCH (18:34)
[2016-11-06] MEDS: LEVOTHYROXINE 75 MCG PO SCH (09:32)
[2016-11-06] MEDS: UBIDECARENONE 100 MG PO SCH ×2 (09:32→18:02)
[2016-11-06] MEDS: LIDOCAINE 2% TOP PRN (09:33)
[2016-11-06] MEDS: CHOLECALCIFEROL 2000 UNIT PO SCH (09:33)
[2016-11-06] MEDS: DABIGATRAN 150 MG PO SCH ×2 (09:33→18:05)
[2016-11-06] MEDS: [UNRECOGNIZED DRUG - OTHER] TOP PRN (09:33)
[2016-11-06] MEDS: Acetaminophen 500 MG Tab PO PRN (09:34)
[2016-11-06] MEDS: MAGNESIUM OXIDE PO SCH (18:00)
[2016-11-06] MEDS: CALCIUM CARBONATE PO SCH (18:00)
[2016-11-06] MEDS: ZINC GLUCONATE PO SCH (18:00)
[2016-11-06] MEDS: OMEGA FISH OIL PO SCH (18:03)
[2016-11-06] MEDS: [UNRECOGNIZED DRUG - OTHER] PO SCH (18:07)
[2016-11-07] MEDS: LEVOTHYROXINE 75 MCG PO SCH (06:33)
[2016-11-07] MEDS: LIDOCAINE 2% TOP PRN ×2 (09:33→22:52)
[2016-11-07] MEDS: [UNRECOGNIZED DRUG - OTHER] TOP PRN ×2 (09:33→22:52)
[2016-11-07] MEDS: DEXTRAN EYEBOTH PRN (09:44)
[2016-11-07] MEDS: CHOLECALCIFEROL 2000 UNIT PO SCH (09:44)
[2016-11-07] MEDS: HYPROMELLOSE EYEBOTH PRN (09:44)
[2016-11-07] MEDS: Acetaminophen 500 MG Tab PO PRN (09:45)
[2016-11-07] MEDS: UBIDECARENONE 100 MG PO SCH ×2 (09:45→18:01)
[2016-11-07] MEDS: DABIGATRAN 150 MG PO SCH ×2 (09:46→18:00)
[2016-11-07] MEDS: CALCIUM CARBONATE PO SCH (18:00)
[2016-11-07] MEDS: ZINC GLUCONATE PO SCH (18:00)
[2016-11-07] MEDS: OMEGA FISH OIL PO SCH (18:00)
[2016-11-07] MEDS: MAGNESIUM OXIDE PO SCH (18:00)
[2016-11-07] MEDS: [UNRECOGNIZED DRUG - OTHER] PO SCH (18:01)
[2016-11-08] MEDS: LIDOCAINE 2% TOP PRN ×2 (09:48→23:06)
[2016-11-08] MEDS: [UNRECOGNIZED DRUG - OTHER] TOP PRN ×2 (09:48→23:06)
[2016-11-08] MEDS: CHOLECALCIFEROL 2000 UNIT PO SCH (09:54)
[2016-11-08] MEDS: UBIDECARENONE 100 MG PO SCH ×2 (09:55→18:10)
[2016-11-08] MEDS: DABIGATRAN 150 MG PO SCH ×2 (09:55→18:10)
[2016-11-08] MEDS: OMEGA FISH OIL PO SCH (18:09)
[2016-11-08] MEDS: CALCIUM CARBONATE PO SCH (18:10)
[2016-11-08] MEDS: [UNRECOGNIZED DRUG - OTHER] PO SCH (18:10)
[2016-11-08] MEDS: MAGNESIUM OXIDE PO SCH (18:10)
[2016-11-08] MEDS: ZINC GLUCONATE PO SCH (18:10)
[2016-11-09] MEDS: LEVOTHYROXINE 75 MCG PO SCH (06:44)
[2016-11-09] MEDS: CHOLECALCIFEROL 2000 UNIT PO SCH (10:04)
[2016-11-09] MEDS: LIDOCAINE 2% TOP PRN ×2 (10:04→23:02)
[2016-11-09] MEDS: UBIDECARENONE 100 MG PO SCH ×2 (10:04→18:18)
[2016-11-09] MEDS: [UNRECOGNIZED DRUG - OTHER] TOP PRN ×2 (10:04→23:02)
[2016-11-09] MEDS: DABIGATRAN 150 MG PO SCH ×2 (10:05→18:18)
[2016-11-09] MEDS: Acetaminophen 500 MG Tab PO PRN (10:05)
[2016-11-09] MEDS: OMEGA FISH OIL PO SCH (18:17)
[2016-11-09] MEDS: ZINC GLUCONATE PO SCH (18:18)
[2016-11-09] MEDS: CALCIUM CARBONATE PO SCH (18:18)
[2016-11-09] MEDS: MAGNESIUM OXIDE PO SCH (18:18)
[2016-11-09] MEDS: [UNRECOGNIZED DRUG - OTHER] PO SCH (18:18)
[2016-11-10] MEDS: LEVOTHYROXINE 75 MCG PO SCH (05:55)
[2016-11-10] MEDS: LIDOCAINE 2% TOP PRN ×2 (10:35→23:28)
[2016-11-10] MEDS: [UNRECOGNIZED DRUG - OTHER] TOP PRN ×2 (10:35→23:28)
[2016-11-10] MEDS: UBIDECARENONE 100 MG PO SCH ×2 (10:36→17:59)
[2016-11-10] MEDS: CHOLECALCIFEROL 2000 UNIT PO SCH (10:36)
[2016-11-10] MEDS: DABIGATRAN 150 MG PO SCH ×2 (10:36→17:59)
[2016-11-10] MEDS: Acetaminophen 500 MG Tab PO PRN (10:37)
[2016-11-10] MEDS: DEXTRAN EYEBOTH PRN (12:16)
[2016-11-10] MEDS: HYPROMELLOSE EYEBOTH PRN (12:16)
[2016-11-10] MEDS: OMEGA FISH OIL PO SCH (17:59)
[2016-11-10] MEDS: ZINC GLUCONATE PO SCH (17:59)
[2016-11-10] MEDS: [UNRECOGNIZED DRUG - OTHER] PO SCH (17:59)
[2016-11-10] MEDS: MAGNESIUM OXIDE PO SCH (17:59)
[2016-11-10] MEDS: CALCIUM CARBONATE PO SCH (17:59)
[2016-11-11] MEDS: LEVOTHYROXINE 75 MCG PO SCH (06:12)
[2016-11-11] MEDS: [UNRECOGNIZED DRUG - OTHER] TOP PRN ×2 (09:37→22:40)
[2016-11-11] MEDS: LIDOCAINE 2% TOP PRN ×2 (09:37→22:40)
[2016-11-11] MEDS: CHOLECALCIFEROL 2000 UNIT PO SCH (09:38)
[2016-11-11] MEDS: DABIGATRAN 150 MG PO SCH ×2 (09:38→18:08)
[2016-11-11] MEDS: UBIDECARENONE 100 MG PO SCH ×2 (09:38→18:08)
[2016-11-11] MEDS: Acetaminophen 500 MG Tab PO PRN (09:39)
[2016-11-11] MEDS: [UNRECOGNIZED DRUG - OTHER] PO SCH (18:08)
[2016-11-11] MEDS: OMEGA FISH OIL PO SCH (18:08)
[2016-11-11] MEDS: ZINC GLUCONATE PO SCH (18:09)
[2016-11-11] MEDS: MAGNESIUM OXIDE PO SCH (18:09)
[2016-11-11] MEDS: CALCIUM CARBONATE PO SCH (18:09)
[2016-11-12] MEDS: LEVOTHYROXINE 75 MCG PO SCH (06:44)
[2016-11-12] MEDS: [UNRECOGNIZED DRUG - OTHER] TOP PRN ×2 (10:01→22:56)
[2016-11-12] MEDS: LIDOCAINE 2% TOP PRN ×2 (10:01→22:56)
[2016-11-12] MEDS: CHOLECALCIFEROL 2000 UNIT PO SCH (10:01)
[2016-11-12] MEDS: UBIDECARENONE 100 MG PO SCH ×2 (10:01→18:35)
[2016-11-12] MEDS: DABIGATRAN 150 MG PO SCH (10:01)
[2016-11-12] MEDS: Acetaminophen 500 MG Tab PO PRN (10:02)
[2016-11-12] MEDS: [UNRECOGNIZED DRUG - OTHER] PO SCH (18:35)
[2016-11-12] MEDS: OMEGA FISH OIL PO SCH (18:35)
[2016-11-12] MEDS: CALCIUM CARBONATE PO SCH (18:36)
[2016-11-12] MEDS: MAGNESIUM OXIDE PO SCH (18:36)
[2016-11-12] MEDS: ZINC GLUCONATE PO SCH (18:36)
[2016-11-13] MEDS: LEVOTHYROXINE 75 MCG PO SCH (06:38)
[2016-11-13] MEDS: CHOLECALCIFEROL 2000 UNIT PO SCH (09:39)
[2016-11-13] MEDS: UBIDECARENONE 100 MG PO SCH ×2 (09:40→18:02)
[2016-11-13] MEDS: [UNRECOGNIZED DRUG - OTHER] TOP PRN ×2 (09:41→22:30)
[2016-11-13] MEDS: LIDOCAINE 2% TOP PRN ×2 (09:41→22:30)
--- NOTE | 2016-11-13 12:43 | PCM.SN ---
- Free Text/Narrative Note: Discussed with nursing that patient has some bright red blood around her normal stools yesterday and the day before. She had 2 both days and 1 so far today, no pain with BM yesterday. She had some pain today with the BM, concern would be a fissure or hemorroid. I did put her pradaxa on hold for 48 hrs total yesterday and will do a rectal exam today or tomorrow. By report she has never had a colonoscopy. Discussed with nursing that pradaxa has nothing to do with her rates but is only for stroke prevention. I will check lab work today and make sure there is no worsening anemia. Hemoccult was actually negative but it was wanda blood on the stool but not a large amount dripping into the toilet.
[2016-11-13] MEDS: OMEGA FISH OIL PO SCH (18:02)
[2016-11-13] MEDS: MAGNESIUM OXIDE PO SCH (18:03)
[2016-11-13] MEDS: ZINC GLUCONATE PO SCH (18:03)
[2016-11-13] MEDS: CALCIUM CARBONATE PO SCH (18:03)
[2016-11-13] MEDS: [UNRECOGNIZED DRUG - OTHER] PO SCH (18:03)
[2016-11-14] MEDS: LEVOTHYROXINE 75 MCG PO SCH (06:21)
[2016-11-14] MEDS: LIDOCAINE 2% TOP PRN ×2 (10:00→23:08)
[2016-11-14] MEDS: [UNRECOGNIZED DRUG - OTHER] TOP PRN ×2 (10:00→23:08)
[2016-11-14] MEDS: UBIDECARENONE 100 MG PO SCH ×2 (10:01→18:24)
[2016-11-14] MEDS: CHOLECALCIFEROL 2000 UNIT PO SCH (10:01)
[2016-11-14] MEDS: HYPROMELLOSE EYEBOTH PRN (10:03)
[2016-11-14] MEDS: DEXTRAN EYEBOTH PRN (10:03)
[2016-11-14] MEDS: Acetaminophen 500 MG Tab PO PRN (10:03)
[2016-11-14] MEDS: CALCIUM CARBONATE PO SCH (18:23)
[2016-11-14] MEDS: OMEGA FISH OIL PO SCH (18:23)
[2016-11-14] MEDS: [UNRECOGNIZED DRUG - OTHER] PO SCH (18:23)
[2016-11-14] MEDS: ZINC GLUCONATE PO SCH (18:23)
[2016-11-14] MEDS: MAGNESIUM OXIDE PO SCH (18:23)
[2016-11-15] MEDS: CHOLECALCIFEROL 2000 UNIT PO SCH (09:46)
[2016-11-15] MEDS: UBIDECARENONE 100 MG PO SCH ×2 (09:47→18:05)
[2016-11-15] MEDS: PROCTOSOL HC 2.5% SCH ×2 (09:47→23:09)
[2016-11-15] MEDS: [UNRECOGNIZED DRUG - OTHER] TOP PRN ×2 (09:48→23:07)
[2016-11-15] MEDS: Acetaminophen 500 MG Tab PO PRN (09:48)
[2016-11-15] MEDS: LIDOCAINE 2% TOP PRN ×2 (09:48→23:07)
[2016-11-15] MEDS: [UNRECOGNIZED DRUG - OTHER] PO SCH (18:05)
[2016-11-15] MEDS: MAGNESIUM OXIDE PO SCH (18:05)
[2016-11-15] MEDS: OMEGA FISH OIL PO SCH (18:05)
[2016-11-15] MEDS: CALCIUM CARBONATE PO SCH (18:05)
[2016-11-15] MEDS: ZINC GLUCONATE PO SCH (18:05)
[2016-11-16] MEDS: LEVOTHYROXINE 75 MCG PO SCH (06:18)
[2016-11-16] MEDS: CHOLECALCIFEROL 2000 UNIT PO SCH (09:42)
[2016-11-16] MEDS: Acetaminophen 500 MG Tab PO PRN (09:42)
[2016-11-16] MEDS: Menthol/Zinc Oxide Ointment 3.5 GM Tube TOP PRN (09:43)
[2016-11-16] MEDS: UBIDECARENONE 100 MG PO SCH ×2 (09:43→18:03)
[2016-11-16] MEDS: PROCTOSOL HC 2.5% SCH ×2 (09:43→23:06)
[2016-11-16] MEDS: [UNRECOGNIZED DRUG - OTHER] TOP PRN ×2 (09:43→23:05)
[2016-11-16] MEDS: LIDOCAINE 2% TOP PRN ×2 (09:43→23:05)
[2016-11-16] MEDS: [UNRECOGNIZED DRUG - OTHER] PO SCH (18:03)
[2016-11-16] MEDS: OMEGA FISH OIL PO SCH (18:03)
[2016-11-16] MEDS: MAGNESIUM OXIDE PO SCH (18:04)
[2016-11-16] MEDS: ZINC GLUCONATE PO SCH (18:04)
[2016-11-16] MEDS: CALCIUM CARBONATE PO SCH (18:04)
[2016-11-16] MEDS: DEXTRAN EYEBOTH PRN (18:05)
[2016-11-16] MEDS: HYPROMELLOSE EYEBOTH PRN (18:05)
--- NOTE | 2016-11-16 21:00 | PCM.SN ---
- Free Text/Narrative Note: Still some local bleeding around stools, will check CBC tomorrow and restart Pradaxa if stable.
[2016-11-17] MEDS: LEVOTHYROXINE 75 MCG PO SCH (06:01)
--- NOTE | 2016-11-17 08:42 | PN ---
Progress Note for Shantel Sheets Date: 11/13/2016 Room #: SUBJECTIVE: This is an 86-year-old, on long-term swing bed due to impaired mobility from arthritis. About 3 days ago, she started having bright red blood around her stools. They had been loose or hard. She was having no pain with bowel movements. It happened about twice per day. There was no major loss of blood. She was not short of breath or having any other symptoms. She has been on Pradaxa long-term for atrial fibrillation. She otherwise has not had other bleeding problems. No abdominal pain. Last night, she did have some pain down in her rectal area, sort of like a burning. She has had quite a lot of issues with vaginal irritation and rashes. She has been following with [employer]LECT[employer] EQUIPMENT [employer] for that and has been using various clobetasol and Lotrisone type creams. 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 She has never had a colonoscopy. OBJECTIVE: Vital Signs: Her temperature today 97.8, pulse 80, blood pressure 137/70, respiratory rate 20, O2 of 94% on room air. General: She is in no acute distress. Heart: Irregularly irregular with murmur. Lungs: Sounds are clear to auscultation bilaterally without crackles or wheezes. Abdomen: Positive bowel sounds. Soft and nontender. Extremities: Warm and dry. No edema. Her gait is slow. She uses a walker. RECTAL: She has rectal exam. There is some soft stool in the vault. No masses. No external hemorrhoids. Just slight area of irritation anteriorly but more probably going along with the lichen type changes that are in her pepper area that are observed. She did have blood around the stool, it is red to almost burgundy but did not appear to be dripping or draining out in any aspect. ASSESSMENT AND PLAN: 1. Painless rectal bleeding. Blood is minimal and only with stools. At this point, I discussed with her we will continue to hold Pradaxa to see if the bleeding quits. 2. Mild rectal irritation. Do not see a hemorrhoid but we can try some hydrocortisone suppository to see if that helps. 3. Essential hypertension, controlled. 4. Osteoarthritis which impairs mobility. 5. Mild thrombocytopenia which we did check. Lab work today and platelets are normal at 136. 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 PLAN: At this point, the patient will be off Pradaxa, discussed with her there is some slight increased risk of stroke but right now, with the bleeding that is just the thing we need to do. If further bleeding, we will repeat her CBC, however, her hemoglobin was quite stable at 12.7. Otherwise, we will get her in to see a surgeon, looks like it might be a couple weeks. They can do anoscopy. I could always do an anoscopy as well but I would like to have her see a surgeon in case there are some internal hemorrhoids or something that requires banding or even a flexible sigmoidoscopy for further evaluation. The patient seems comfortable with this plan. MKA: 11/13/2016 16:50:21 MODL: 11/13/2016 17:13:49 /[id number]
[2016-11-17] MEDS: CHOLECALCIFEROL 2000 UNIT PO SCH (09:39)
[2016-11-17] MEDS: UBIDECARENONE 100 MG PO SCH ×2 (09:39→18:09)
[2016-11-17] MEDS: [UNRECOGNIZED DRUG - OTHER] TOP PRN ×2 (09:40→22:55)
[2016-11-17] MEDS: LIDOCAINE 2% TOP PRN ×2 (09:40→22:55)
[2016-11-17] MEDS: PROCTOSOL HC 2.5% SCH ×2 (09:40→22:54)
[2016-11-17] MEDS: DABIGATRAN 150 MG PO SCH ×2 (09:40→18:10)
[2016-11-17] MEDS: Acetaminophen 500 MG Tab PO PRN (09:41)
[2016-11-17] MEDS: OMEGA FISH OIL PO SCH (18:09)
[2016-11-17] MEDS: [UNRECOGNIZED DRUG - OTHER] PO SCH (18:10)
[2016-11-17] MEDS: CALCIUM CARBONATE PO SCH (18:10)
[2016-11-17] MEDS: MAGNESIUM OXIDE PO SCH (18:10)
[2016-11-17] MEDS: ZINC GLUCONATE PO SCH (18:10)
[2016-11-18] MEDS: LEVOTHYROXINE 75 MCG PO SCH (06:12)
[2016-11-18] MEDS: UBIDECARENONE 100 MG PO SCH ×2 (10:11→18:30)
[2016-11-18] MEDS: CHOLECALCIFEROL 2000 UNIT PO SCH (10:11)
[2016-11-18] MEDS: PROCTOSOL HC 2.5% SCH ×2 (10:12→22:00)
[2016-11-18] MEDS: [UNRECOGNIZED DRUG - OTHER] TOP PRN ×2 (10:13→22:00)
[2016-11-18] MEDS: Acetaminophen 500 MG Tab PO PRN (10:13)
[2016-11-18] MEDS: LIDOCAINE 2% TOP PRN ×2 (10:13→22:00)
--- NOTE | 2016-11-18 12:41 | PCM.SN ---
- Free Text/Narrative Note: Rectal bleeding with BM's continue. Discussed with patient after I observed the small amount of stool and blood in the toilet. We will stop Pradaxa for now. Surgeon will evaluate with anoscopy next week. hgb check on again.
[2016-11-18] MEDS: CALCIUM CARBONATE PO SCH (18:31)
[2016-11-18] MEDS: ZINC GLUCONATE PO SCH (18:31)
[2016-11-18] MEDS: MAGNESIUM OXIDE PO SCH (18:31)
[2016-11-18] MEDS: OMEGA FISH OIL PO SCH (18:32)
[2016-11-18] MEDS: [UNRECOGNIZED DRUG - OTHER] PO SCH (18:32)
[2016-11-19] MEDS: LEVOTHYROXINE 75 MCG PO SCH ×2 (05:58→06:00)
[2016-11-19] MEDS: UBIDECARENONE 100 MG PO SCH ×2 (09:36→18:50)
[2016-11-19] MEDS: CHOLECALCIFEROL 2000 UNIT PO SCH (09:36)
[2016-11-19] MEDS: PROCTOSOL HC 2.5% SCH ×2 (09:37→23:14)
[2016-11-19] MEDS: LIDOCAINE 2% TOP PRN (09:37)
[2016-11-19] MEDS: [UNRECOGNIZED DRUG - OTHER] TOP PRN (09:37)
[2016-11-19] MEDS: Acetaminophen 500 MG Tab PO PRN (09:38)
[2016-11-19] MEDS: ZINC GLUCONATE PO SCH (18:49)
[2016-11-19] MEDS: CALCIUM CARBONATE PO SCH (18:49)
[2016-11-19] MEDS: OMEGA FISH OIL PO SCH (18:49)
[2016-11-19] MEDS: MAGNESIUM OXIDE PO SCH (18:49)
[2016-11-19] MEDS: [UNRECOGNIZED DRUG - OTHER] PO SCH (18:50)
[2016-11-20] MEDS: LEVOTHYROXINE 75 MCG PO SCH (06:20)
[2016-11-20] MEDS: CHOLECALCIFEROL 2000 UNIT PO SCH (09:34)
[2016-11-20] MEDS: UBIDECARENONE 100 MG PO SCH ×2 (09:35→19:11)
[2016-11-20] MEDS: Acetaminophen 500 MG Tab PO PRN (09:36)
[2016-11-20] MEDS: LIDOCAINE 2% TOP PRN (09:39)
[2016-11-20] MEDS: PROCTOSOL HC 2.5% SCH ×2 (09:39→23:16)
[2016-11-20] MEDS: [UNRECOGNIZED DRUG - OTHER] TOP PRN (09:39)
[2016-11-20] MEDS: OMEGA FISH OIL PO SCH (19:10)
[2016-11-20] MEDS: [UNRECOGNIZED DRUG - OTHER] PO SCH (19:11)
[2016-11-20] MEDS: MAGNESIUM OXIDE PO SCH (19:11)
[2016-11-20] MEDS: ZINC GLUCONATE PO SCH (19:11)
[2016-11-20] MEDS: CALCIUM CARBONATE PO SCH (19:11)
[2016-11-21] MEDS: LEVOTHYROXINE 75 MCG PO SCH (06:41)
[2016-11-21] MEDS: UBIDECARENONE 100 MG PO SCH ×2 (09:43→17:59)
[2016-11-21] MEDS: CHOLECALCIFEROL 2000 UNIT PO SCH (09:43)
[2016-11-21] MEDS: PROCTOSOL HC 2.5% SCH ×2 (09:44→23:21)
[2016-11-21] MEDS: Acetaminophen 500 MG Tab PO PRN (09:45)
[2016-11-21] MEDS: [UNRECOGNIZED DRUG - OTHER] TOP PRN ×2 (09:46→23:22)
[2016-11-21] MEDS: LIDOCAINE 2% TOP PRN ×2 (09:46→23:22)
[2016-11-21] MEDS: MAGNESIUM OXIDE PO SCH (18:00)
[2016-11-21] MEDS: CALCIUM CARBONATE PO SCH (18:00)
[2016-11-21] MEDS: [UNRECOGNIZED DRUG - OTHER] PO SCH (18:00)
[2016-11-21] MEDS: ZINC GLUCONATE PO SCH (18:00)
[2016-11-21] MEDS: OMEGA FISH OIL PO SCH (18:00)
[2016-11-21] MEDS: DEXTRAN EYEBOTH PRN (18:01)
[2016-11-21] MEDS: HYPROMELLOSE EYEBOTH PRN (18:01)
[2016-11-22] MEDS: Acetaminophen 500 MG Tab PO PRN (09:39)
[2016-11-22] MEDS: CHOLECALCIFEROL 2000 UNIT PO SCH (09:39)
[2016-11-22] MEDS: [UNRECOGNIZED DRUG - OTHER] TOP PRN ×2 (09:40→23:10)
[2016-11-22] MEDS: PROCTOSOL HC 2.5% SCH ×2 (09:40→23:22)
[2016-11-22] MEDS: UBIDECARENONE 100 MG PO SCH ×2 (09:40→18:16)
[2016-11-22] MEDS: LIDOCAINE 2% TOP PRN ×2 (09:40→23:10)
[2016-11-22] MEDS: OMEGA FISH OIL PO SCH (18:15)
[2016-11-22] MEDS: [UNRECOGNIZED DRUG - OTHER] PO SCH (18:15)
[2016-11-22] MEDS: MAGNESIUM OXIDE PO SCH (18:16)
[2016-11-22] MEDS: CALCIUM CARBONATE PO SCH (18:16)
[2016-11-22] MEDS: ZINC GLUCONATE PO SCH (18:16)
[2016-11-23] MEDS: LEVOTHYROXINE 75 MCG PO SCH (06:06)
[2016-11-23] MEDS: Acetaminophen 500 MG Tab PO PRN (08:37)
[2016-11-23] MEDS: UBIDECARENONE 100 MG PO SCH ×3 (08:39→18:16)
[2016-11-23] MEDS: CHOLECALCIFEROL 2000 UNIT PO SCH ×2 (08:39→09:19)
[2016-11-23] MEDS: [UNRECOGNIZED DRUG - OTHER] TOP PRN ×2 (08:40→23:01)
[2016-11-23] MEDS: PROCTOSOL HC 2.5% SCH ×3 (08:40→23:01)
[2016-11-23] MEDS: LIDOCAINE 2% TOP PRN ×2 (08:40→23:01)
[2016-11-23] MEDS: MAGNESIUM OXIDE PO SCH (18:15)
[2016-11-23] MEDS: CALCIUM CARBONATE PO SCH (18:15)
[2016-11-23] MEDS: OMEGA FISH OIL PO SCH (18:15)
[2016-11-23] MEDS: [UNRECOGNIZED DRUG - OTHER] PO SCH (18:15)
[2016-11-23] MEDS: ZINC GLUCONATE PO SCH (18:15)
[2016-11-24] MEDS: LEVOTHYROXINE 75 MCG PO SCH (06:02)
[2016-11-24] MEDS: CHOLECALCIFEROL 2000 UNIT PO SCH (10:53)
[2016-11-24] MEDS: UBIDECARENONE 100 MG PO SCH ×2 (10:54→18:42)
[2016-11-24] MEDS: Acetaminophen 500 MG Tab PO PRN (10:54)
[2016-11-24] MEDS: LIDOCAINE 2% TOP PRN ×2 (10:56→23:45)
[2016-11-24] MEDS: PROCTOSOL HC 2.5% SCH ×2 (10:56→23:44)
[2016-11-24] MEDS: [UNRECOGNIZED DRUG - OTHER] TOP PRN ×2 (10:56→23:45)
[2016-11-24] MEDS: ZINC GLUCONATE PO SCH (18:42)
[2016-11-24] MEDS: CALCIUM CARBONATE PO SCH (18:42)
[2016-11-24] MEDS: MAGNESIUM OXIDE PO SCH (18:42)
[2016-11-24] MEDS: [UNRECOGNIZED DRUG - OTHER] PO SCH (18:42)
[2016-11-24] MEDS: OMEGA FISH OIL PO SCH (18:42)
[2016-11-25] MEDS: LEVOTHYROXINE 75 MCG PO SCH (06:14)
[2016-11-25] MEDS: PROCTOSOL HC 2.5% SCH ×2 (09:54→22:34)
[2016-11-25] MEDS: CHOLECALCIFEROL 2000 UNIT PO SCH (10:00)
[2016-11-25] MEDS: UBIDECARENONE 100 MG PO SCH ×2 (10:00→20:29)
[2016-11-25] MEDS: LIDOCAINE 2% TOP PRN ×2 (10:01→22:35)
[2016-11-25] MEDS: [UNRECOGNIZED DRUG - OTHER] TOP PRN ×2 (10:01→22:35)
[2016-11-25] MEDS: Acetaminophen 500 MG Tab PO PRN (10:07)
[2016-11-25] MEDS: CALCIUM CARBONATE PO SCH (20:29)
[2016-11-25] MEDS: ZINC GLUCONATE PO SCH (20:29)
[2016-11-25] MEDS: MAGNESIUM OXIDE PO SCH (20:29)
[2016-11-25] MEDS: [UNRECOGNIZED DRUG - OTHER] PO SCH (20:29)
[2016-11-25] MEDS: OMEGA FISH OIL PO SCH (20:30)
[2016-11-25] MEDS: DEXTRAN EYEBOTH PRN (20:33)
[2016-11-25] MEDS: HYPROMELLOSE EYEBOTH PRN (20:33)
[2016-11-26] MEDS: LEVOTHYROXINE 75 MCG PO SCH (06:31)
[2016-11-26] MEDS: [UNRECOGNIZED DRUG - OTHER] TOP PRN ×2 (10:10→23:02)
[2016-11-26] MEDS: PROCTOSOL HC 2.5% SCH ×2 (10:10→23:01)
[2016-11-26] MEDS: LIDOCAINE 2% TOP PRN ×2 (10:10→23:02)
[2016-11-26] MEDS: CHOLECALCIFEROL 2000 UNIT PO SCH (10:11)
[2016-11-26] MEDS: Acetaminophen 500 MG Tab PO PRN (10:11)
[2016-11-26] MEDS: UBIDECARENONE 100 MG PO SCH ×2 (10:11→18:03)
[2016-11-26] MEDS: OMEGA FISH OIL PO SCH (18:02)
[2016-11-26] MEDS: MAGNESIUM OXIDE PO SCH (18:03)
[2016-11-26] MEDS: ZINC GLUCONATE PO SCH (18:03)
[2016-11-26] MEDS: CALCIUM CARBONATE PO SCH (18:03)
[2016-11-26] MEDS: [UNRECOGNIZED DRUG - OTHER] PO SCH (18:03)
[2016-11-27] MEDS: LEVOTHYROXINE 75 MCG PO SCH (06:14)
[2016-11-27] MEDS: Acetaminophen 500 MG Tab PO PRN (09:42)
[2016-11-27] MEDS: UBIDECARENONE 100 MG PO SCH ×2 (09:42→18:35)
[2016-11-27] MEDS: CHOLECALCIFEROL 2000 UNIT PO SCH (09:42)
[2016-11-27] MEDS: PROCTOSOL HC 2.5% SCH ×2 (09:45→23:15)
[2016-11-27] MEDS: LIDOCAINE 2% TOP PRN (09:45)
[2016-11-27] MEDS: [UNRECOGNIZED DRUG - OTHER] TOP PRN (09:45)
[2016-11-27] MEDS: MAGNESIUM OXIDE PO SCH (18:34)
[2016-11-27] MEDS: [UNRECOGNIZED DRUG - OTHER] PO SCH (18:34)
[2016-11-27] MEDS: OMEGA FISH OIL PO SCH (18:34)
[2016-11-27] MEDS: CALCIUM CARBONATE PO SCH (18:34)
[2016-11-27] MEDS: ZINC GLUCONATE PO SCH (18:34)
[2016-11-28] MEDS: LEVOTHYROXINE 75 MCG PO SCH (05:59)
[2016-11-28] MEDS: UBIDECARENONE 100 MG PO SCH ×2 (10:11→18:04)
[2016-11-28] MEDS: CHOLECALCIFEROL 2000 UNIT PO SCH (10:12)
[2016-11-28] MEDS: PROCTOSOL HC 2.5% SCH ×2 (10:12→23:10)
[2016-11-28] MEDS: Acetaminophen 500 MG Tab PO PRN (10:13)
[2016-11-28] MEDS: LIDOCAINE 2% TOP PRN ×2 (10:14→23:10)
[2016-11-28] MEDS: [UNRECOGNIZED DRUG - OTHER] TOP PRN ×2 (10:14→23:10)
[2016-11-28] MEDS: OMEGA FISH OIL PO SCH (18:04)
[2016-11-28] MEDS: ZINC GLUCONATE PO SCH (18:05)
[2016-11-28] MEDS: CALCIUM CARBONATE PO SCH (18:05)
[2016-11-28] MEDS: MAGNESIUM OXIDE PO SCH (18:05)
[2016-11-28] MEDS: [UNRECOGNIZED DRUG - OTHER] PO SCH (18:06)
[2016-11-29] MEDS: UBIDECARENONE 100 MG PO SCH ×2 (10:13→18:16)
[2016-11-29] MEDS: CHOLECALCIFEROL 2000 UNIT PO SCH (10:13)
[2016-11-29] MEDS: Acetaminophen 500 MG Tab PO PRN ×2 (10:14→18:15)
[2016-11-29] MEDS: PROCTOSOL HC 2.5% SCH (10:17)
[2016-11-29] MEDS: [UNRECOGNIZED DRUG - OTHER] TOP PRN ×2 (10:17→23:06)
[2016-11-29] MEDS: LIDOCAINE 2% TOP PRN ×2 (10:17→23:06)
[2016-11-29] MEDS: MAGNESIUM OXIDE PO SCH (18:14)
[2016-11-29] MEDS: OMEGA FISH OIL PO SCH (18:14)
[2016-11-29] MEDS: ZINC GLUCONATE PO SCH (18:14)
[2016-11-29] MEDS: CALCIUM CARBONATE PO SCH (18:14)
[2016-11-29] MEDS: [UNRECOGNIZED DRUG - OTHER] PO SCH (18:15)
[2016-11-30] MEDS: LEVOTHYROXINE 75 MCG PO SCH (06:15)
[2016-11-30] MEDS: CHOLECALCIFEROL 2000 UNIT PO SCH (09:58)
[2016-11-30] MEDS: Acetaminophen 500 MG Tab PO PRN (09:59)
[2016-11-30] MEDS: UBIDECARENONE 100 MG PO SCH ×2 (09:59→18:14)
[2016-11-30] MEDS: LIDOCAINE 2% TOP PRN ×2 (10:00→22:45)
[2016-11-30] MEDS: [UNRECOGNIZED DRUG - OTHER] TOP PRN ×2 (10:00→22:45)
[2016-11-30] MEDS: ZINC GLUCONATE PO SCH (18:14)
[2016-11-30] MEDS: OMEGA FISH OIL PO SCH (18:14)
[2016-11-30] MEDS: MAGNESIUM OXIDE PO SCH (18:14)
[2016-11-30] MEDS: CALCIUM CARBONATE PO SCH (18:14)
[2016-11-30] MEDS: [UNRECOGNIZED DRUG - OTHER] PO SCH (18:14)
[2016-12-01] MEDS: LEVOTHYROXINE 75 MCG PO SCH (06:28)
[2016-12-01] MEDS: LIDOCAINE 2% TOP PRN ×2 (10:28→23:33)
[2016-12-01] MEDS: UBIDECARENONE 100 MG PO SCH ×2 (10:28→18:21)
[2016-12-01] MEDS: [UNRECOGNIZED DRUG - OTHER] TOP PRN ×2 (10:28→23:33)
[2016-12-01] MEDS: Acetaminophen 500 MG Tab PO PRN (10:29)
[2016-12-01] MEDS: CHOLECALCIFEROL 2000 UNIT PO SCH (10:29)
[2016-12-01] MEDS: ZINC GLUCONATE PO SCH (18:20)
[2016-12-01] MEDS: MAGNESIUM OXIDE PO SCH (18:20)
[2016-12-01] MEDS: CALCIUM CARBONATE PO SCH (18:20)
[2016-12-01] MEDS: OMEGA FISH OIL PO SCH (18:21)
[2016-12-01] MEDS: [UNRECOGNIZED DRUG - OTHER] PO SCH (18:21)
[2016-12-02] MEDS: LEVOTHYROXINE 75 MCG PO SCH (06:07)
[2016-12-02] MEDS: Acetaminophen 500 MG Tab PO PRN (09:57)
[2016-12-02] MEDS: CHOLECALCIFEROL 2000 UNIT PO SCH (09:57)
[2016-12-02] MEDS: UBIDECARENONE 100 MG PO SCH ×2 (09:58→18:23)
[2016-12-02] MEDS: LIDOCAINE 2% TOP PRN ×2 (10:00→23:08)
[2016-12-02] MEDS: [UNRECOGNIZED DRUG - OTHER] TOP PRN ×2 (10:00→23:08)
[2016-12-02] MEDS: MAGNESIUM OXIDE PO SCH (18:22)
[2016-12-02] MEDS: ZINC GLUCONATE PO SCH (18:22)
[2016-12-02] MEDS: CALCIUM CARBONATE PO SCH (18:22)
[2016-12-02] MEDS: OMEGA FISH OIL PO SCH (18:23)
[2016-12-02] MEDS: [UNRECOGNIZED DRUG - OTHER] PO SCH (18:23)
[2016-12-03] MEDS: LEVOTHYROXINE 75 MCG PO SCH (06:04)
[2016-12-03] MEDS: UBIDECARENONE 100 MG PO SCH ×2 (09:40→18:39)
[2016-12-03] MEDS: LIDOCAINE 2% TOP PRN ×2 (09:41→23:29)
[2016-12-03] MEDS: CHOLECALCIFEROL 2000 UNIT PO SCH (09:41)
[2016-12-03] MEDS: Acetaminophen 500 MG Tab PO PRN (09:41)
[2016-12-03] MEDS: [UNRECOGNIZED DRUG - OTHER] TOP PRN ×2 (09:41→23:29)
[2016-12-03] MEDS: ZINC GLUCONATE PO SCH (18:39)
[2016-12-03] MEDS: MAGNESIUM OXIDE PO SCH (18:39)
[2016-12-03] MEDS: CALCIUM CARBONATE PO SCH (18:39)
[2016-12-03] MEDS: [UNRECOGNIZED DRUG - OTHER] PO SCH (18:39)
[2016-12-03] MEDS: OMEGA FISH OIL PO SCH (18:39)
[2016-12-04] MEDS: LEVOTHYROXINE 75 MCG PO SCH (06:21)
[2016-12-04] MEDS: Acetaminophen 500 MG Tab PO SCH (10:30)
[2016-12-04] MEDS: CHOLECALCIFEROL 2000 UNIT PO SCH (10:30)
[2016-12-04] MEDS: UBIDECARENONE 100 MG PO SCH ×2 (10:30→19:52)
[2016-12-04] MEDS: Acetaminophen 500 MG Tab PO PRN (10:30)
[2016-12-04] MEDS: OMEGA FISH OIL PO SCH (19:51)
[2016-12-04] MEDS: [UNRECOGNIZED DRUG - OTHER] PO SCH (19:51)
[2016-12-04] MEDS: ZINC GLUCONATE PO SCH (19:52)
[2016-12-04] MEDS: MAGNESIUM OXIDE PO SCH (19:52)
[2016-12-04] MEDS: CALCIUM CARBONATE PO SCH (19:52)
[2016-12-04] MEDS: LIDOCAINE 2% TOP PRN (23:30)
[2016-12-04] MEDS: [UNRECOGNIZED DRUG - OTHER] TOP PRN (23:30)
[2016-12-05] MEDS: LEVOTHYROXINE 75 MCG PO SCH (06:19)
[2016-12-05] MEDS: CHOLECALCIFEROL 2000 UNIT PO SCH (10:10)
[2016-12-05] MEDS: UBIDECARENONE 100 MG PO SCH ×2 (10:12→18:40)
[2016-12-05] MEDS: Acetaminophen 500 MG Tab PO SCH (10:13)
[2016-12-05] MEDS: LIDOCAINE 2% TOP PRN ×2 (10:14→23:30)
[2016-12-05] MEDS: [UNRECOGNIZED DRUG - OTHER] TOP PRN ×2 (10:14→23:30)
[2016-12-05] MEDS: MAGNESIUM OXIDE PO SCH (18:39)
[2016-12-05] MEDS: CALCIUM CARBONATE PO SCH (18:39)
[2016-12-05] MEDS: ZINC GLUCONATE PO SCH (18:39)
[2016-12-05] MEDS: [UNRECOGNIZED DRUG - OTHER] PO SCH (18:40)
[2016-12-05] MEDS: OMEGA FISH OIL PO SCH (18:40)
[2016-12-05] MEDS: DEXTRAN EYEBOTH PRN (18:42)
[2016-12-05] MEDS: HYPROMELLOSE EYEBOTH PRN (18:42)
[2016-12-06] MEDS: CHOLECALCIFEROL 2000 UNIT PO SCH (10:57)
[2016-12-06] MEDS: UBIDECARENONE 100 MG PO SCH ×2 (10:58→18:19)
[2016-12-06] MEDS: Acetaminophen 500 MG Tab PO SCH (10:58)
[2016-12-06] MEDS: LIDOCAINE 2% TOP PRN ×2 (11:01→23:15)
[2016-12-06] MEDS: [UNRECOGNIZED DRUG - OTHER] TOP PRN ×2 (11:01→23:15)
[2016-12-06] MEDS: ZINC GLUCONATE PO SCH (18:19)
[2016-12-06] MEDS: [UNRECOGNIZED DRUG - OTHER] PO SCH (18:19)
[2016-12-06] MEDS: OMEGA FISH OIL PO SCH (18:19)
[2016-12-06] MEDS: CALCIUM CARBONATE PO SCH (18:19)
[2016-12-06] MEDS: MAGNESIUM OXIDE PO SCH (18:19)
[2016-12-07] MEDS: LEVOTHYROXINE 75 MCG PO SCH (06:25)
[2016-12-07] MEDS: UBIDECARENONE 100 MG PO SCH ×2 (10:05→19:20)
[2016-12-07] MEDS: Acetaminophen 500 MG Tab PO SCH (10:06)
[2016-12-07] MEDS: LIDOCAINE 2% TOP PRN (10:10)
[2016-12-07] MEDS: [UNRECOGNIZED DRUG - OTHER] TOP PRN (10:10)
[2016-12-07] MEDS: ZINC GLUCONATE PO SCH (19:20)
[2016-12-07] MEDS: [UNRECOGNIZED DRUG - OTHER] PO SCH (19:20)
[2016-12-07] MEDS: OMEGA FISH OIL PO SCH (19:20)
[2016-12-07] MEDS: MAGNESIUM OXIDE PO SCH (19:20)
[2016-12-07] MEDS: CALCIUM CARBONATE PO SCH (19:20)
[2016-12-07] MEDS: CHOLECALCIFEROL 2000 UNIT PO SCH (22:09)
[2016-12-08] MEDS: LEVOTHYROXINE 75 MCG PO SCH (06:27)
[2016-12-08] MEDS: UBIDECARENONE 100 MG PO SCH ×2 (10:48→19:21)
[2016-12-08] MEDS: Acetaminophen 500 MG Tab PO SCH (10:49)
[2016-12-08] MEDS: CHOLECALCIFEROL 2000 UNIT PO SCH (10:49)
[2016-12-08] MEDS: [UNRECOGNIZED DRUG - OTHER] PO SCH (19:21)
[2016-12-08] MEDS: CALCIUM CARBONATE PO SCH (19:21)
[2016-12-08] MEDS: ZINC GLUCONATE PO SCH (19:21)
[2016-12-08] MEDS: MAGNESIUM OXIDE PO SCH (19:21)
[2016-12-08] MEDS: OMEGA FISH OIL PO SCH (19:22)
[2016-12-08] MEDS: DABIGATRAN 150 MG PO SCH (19:24)
[2016-12-09] MEDS: DABIGATRAN 150 MG PO SCH (06:27)
[2016-12-09] MEDS: LEVOTHYROXINE 75 MCG PO SCH (06:27)
[2016-12-09] MEDS: CHOLECALCIFEROL 2000 UNIT PO SCH (09:43)
[2016-12-09] MEDS: UBIDECARENONE 100 MG PO SCH ×2 (09:43→18:41)
[2016-12-09] MEDS: Acetaminophen 500 MG Tab PO PRN (09:44)
[2016-12-09] MEDS: Acetaminophen 500 MG Tab PO SCH (09:48)
[2016-12-09] MEDS: PRADAXA 150 MG PO SCH ×2 (10:14→18:40)
[2016-12-09] MEDS: DEXTRAN EYEBOTH PRN (18:40)
[2016-12-09] MEDS: CALCIUM CARBONATE PO SCH (18:40)
[2016-12-09] MEDS: HYPROMELLOSE EYEBOTH PRN (18:40)
[2016-12-09] MEDS: ZINC GLUCONATE PO SCH (18:40)
[2016-12-09] MEDS: MAGNESIUM OXIDE PO SCH (18:40)
[2016-12-09] MEDS: [UNRECOGNIZED DRUG - OTHER] PO SCH (18:40)
[2016-12-09] MEDS: OMEGA FISH OIL PO SCH (18:41)
[2016-12-10] MEDS: LEVOTHYROXINE 75 MCG PO SCH (06:35)
--- NOTE | 2016-12-10 09:50 | PN ---
Progress Note for Shantel Sheets Date: 12/08/2016 Room #: SUBJECTIVE: This is an 86-year-old, who lives on long-term swing bed due to painful osteoarthritis which limits her ability to do her ADLs. She was having some rectal bleeding with bowel movements. Her Pradaxa was stopped. She went to see General surgery around 11/28 and there were some resolving internal hemorrhoidal bleeding at that time. She has not had any further problems since, every once in a while she gets some irritation down there, but it is more vaginal area and she does have a known history of chronic dermatitis and vulvitis. Otherwise, she has not had any chest pain, no shortness of breath. No stroke-like symptoms. OBJECTIVE: Vital Signs: Her weight is 78.9 kg. Temperature 97.4, pulse 83, blood pressure 126/71, respiratory rate 16, and O2 of 95% on room air. General: She is in no acute distress. Heart: Irregularly irregular with murmur. Lungs: Sounds are clear to auscultation bilaterally without crackles or wheezes. Abdomen: Positive bowel sounds. Soft and nontender. Extremities: Warm and dry. No edema. Mental Status: She is alert and orientated x3. ASSESSMENT AND PLAN: 1. Resolved internal hemorrhoidal bleeding. She has seen the surgeon. She has had anoscopy. She declines for colonoscopy at this point. 2. Chronic vulvar and vaginal irritation. She has followed up with Gynecology for that. She has even had biopsy. We will continue her creams. 3. Essential hypertension, controlled. 4. Atrial fibrillation, chronic. She is on Pradaxa in the past, now that her bleeding has resolved, we will go ahead and restart that. 5. Osteoarthritis, which impairs mobility. 6. Mild anemia and thrombocytopenia by history. We will repeat a CBC in 1 month. Last hemoglobin went up slightly to 11.9. 7. Hypothyroidism. PLAN: At this point, the patient will be restarted on Pradaxa. We will continue swing bed cares. We will repeat lab work in 1 month. MKA: 12/08/2016 17:01:04 MODL: 12/08/2016 18:25:02 /[id number]
[2016-12-10] MEDS: CHOLECALCIFEROL 2000 UNIT PO SCH (10:00)
[2016-12-10] MEDS: UBIDECARENONE 100 MG PO SCH ×2 (10:00→18:14)
[2016-12-10] MEDS: PRADAXA 150 MG PO SCH ×2 (10:01→18:14)
[2016-12-10] MEDS: Acetaminophen 500 MG Tab PO SCH (10:02)
[2016-12-10] MEDS: ZINC GLUCONATE PO SCH (18:14)
[2016-12-10] MEDS: OMEGA FISH OIL PO SCH (18:14)
[2016-12-10] MEDS: CALCIUM CARBONATE PO SCH (18:14)
[2016-12-10] MEDS: [UNRECOGNIZED DRUG - OTHER] PO SCH (18:14)
[2016-12-10] MEDS: MAGNESIUM OXIDE PO SCH (18:14)
[2016-12-11] MEDS: LEVOTHYROXINE PO SCH (06:28)
[2016-12-11] MEDS: Acetaminophen 500 MG Tab PO SCH (09:55)
[2016-12-11] MEDS: CHOLECALCIFEROL 2000 UNIT PO SCH (09:56)
[2016-12-11] MEDS: UBIDECARENONE 100 MG PO SCH ×2 (09:56→18:00)
[2016-12-11] MEDS: PRADAXA 150 MG PO SCH ×2 (09:56→18:15)
[2016-12-11] MEDS: HYPROMELLOSE EYEBOTH PRN ×2 (09:58→17:59)
[2016-12-11] MEDS: DEXTRAN EYEBOTH PRN ×2 (09:58→17:59)
[2016-12-11] MEDS: OMEGA FISH OIL PO SCH (17:59)
[2016-12-11] MEDS: CALCIUM CARBONATE PO SCH (18:00)
[2016-12-11] MEDS: MAGNESIUM OXIDE PO SCH (18:00)
[2016-12-11] MEDS: ZINC GLUCONATE PO SCH (18:00)
[2016-12-11] MEDS: [UNRECOGNIZED DRUG - OTHER] PO SCH (18:00)
[2016-12-12] MEDS: LEVOTHYROXINE PO SCH (06:41)
[2016-12-12] MEDS: PRADAXA 150 MG PO SCH ×2 (10:13→19:51)
[2016-12-12] MEDS: CHOLECALCIFEROL 2000 UNIT PO SCH (10:13)
[2016-12-12] MEDS: UBIDECARENONE 100 MG PO SCH ×2 (10:13→19:52)
[2016-12-12] MEDS: Acetaminophen 500 MG Tab PO SCH (10:14)
[2016-12-12] MEDS: ZINC GLUCONATE PO SCH (19:51)
[2016-12-12] MEDS: MAGNESIUM OXIDE PO SCH (19:51)
[2016-12-12] MEDS: OMEGA FISH OIL PO SCH (19:51)
[2016-12-12] MEDS: [UNRECOGNIZED DRUG - OTHER] PO SCH (19:51)
[2016-12-12] MEDS: CALCIUM CARBONATE PO SCH (19:51)
[2016-12-13] MEDS: CHOLECALCIFEROL 2000 UNIT PO SCH (11:12)
[2016-12-13] MEDS: UBIDECARENONE 100 MG PO SCH ×2 (11:12→18:28)
[2016-12-13] MEDS: PRADAXA 150 MG PO SCH ×2 (11:13→18:29)
[2016-12-13] MEDS: Acetaminophen 500 MG Tab PO SCH (11:13)
[2016-12-13] MEDS: [UNRECOGNIZED DRUG - OTHER] PO SCH (18:28)
[2016-12-13] MEDS: ZINC GLUCONATE PO SCH (18:28)
[2016-12-13] MEDS: MAGNESIUM OXIDE PO SCH (18:28)
[2016-12-13] MEDS: OMEGA FISH OIL PO SCH (18:28)
[2016-12-13] MEDS: CALCIUM CARBONATE PO SCH (18:28)
[2016-12-14] MEDS: LEVOTHYROXINE PO SCH (06:16)
[2016-12-14] MEDS: UBIDECARENONE 100 MG PO SCH ×2 (08:59→18:33)
[2016-12-14] MEDS: CHOLECALCIFEROL 2000 UNIT PO SCH (08:59)
[2016-12-14] MEDS: Acetaminophen 500 MG Tab PO SCH (09:00)
[2016-12-14] MEDS: PRADAXA 150 MG PO SCH ×2 (09:00→18:33)
[2016-12-14] MEDS: CALCIUM CARBONATE PO SCH (18:34)
[2016-12-14] MEDS: ZINC GLUCONATE PO SCH (18:34)
[2016-12-14] MEDS: MAGNESIUM OXIDE PO SCH (18:34)
[2016-12-14] MEDS: [UNRECOGNIZED DRUG - OTHER] PO SCH (18:34)
[2016-12-14] MEDS: OMEGA FISH OIL PO SCH (18:34)
[2016-12-15] MEDS: LEVOTHYROXINE PO SCH (06:04)
[2016-12-15] MEDS: PRADAXA 150 MG PO SCH ×2 (09:30→18:13)
[2016-12-15] MEDS: UBIDECARENONE 100 MG PO SCH ×2 (09:30→18:13)
[2016-12-15] MEDS: CHOLECALCIFEROL 2000 UNIT PO SCH (09:31)
[2016-12-15] MEDS: Acetaminophen 500 MG Tab PO SCH (09:32)
[2016-12-15] MEDS: MAGNESIUM OXIDE PO SCH (18:13)
[2016-12-15] MEDS: ZINC GLUCONATE PO SCH (18:13)
[2016-12-15] MEDS: [UNRECOGNIZED DRUG - OTHER] PO SCH (18:13)
[2016-12-15] MEDS: CALCIUM CARBONATE PO SCH (18:13)
[2016-12-15] MEDS: OMEGA FISH OIL PO SCH (18:14)
[2016-12-15] MEDS: HYPROMELLOSE EYEBOTH PRN (18:15)
[2016-12-15] MEDS: DEXTRAN EYEBOTH PRN (18:15)
[2016-12-16] MEDS: LEVOTHYROXINE PO SCH (06:06)
[2016-12-16] MEDS: PRADAXA 150 MG PO SCH ×2 (09:16→18:06)
[2016-12-16] MEDS: UBIDECARENONE 100 MG PO SCH ×2 (09:17→18:06)
[2016-12-16] MEDS: CHOLECALCIFEROL 2000 UNIT PO SCH (09:17)
[2016-12-16] MEDS: Acetaminophen 500 MG Tab PO SCH (09:18)
[2016-12-16] MEDS: [UNRECOGNIZED DRUG - OTHER] PO SCH (18:06)
[2016-12-16] MEDS: MAGNESIUM OXIDE PO SCH (18:06)
[2016-12-16] MEDS: OMEGA FISH OIL PO SCH (18:06)
[2016-12-16] MEDS: CALCIUM CARBONATE PO SCH (18:06)
[2016-12-16] MEDS: ZINC GLUCONATE PO SCH (18:06)
[2016-12-17] MEDS: LEVOTHYROXINE PO SCH (06:30)
[2016-12-17] MEDS: CHOLECALCIFEROL 2000 UNIT PO SCH (09:05)
[2016-12-17] MEDS: UBIDECARENONE 100 MG PO SCH ×2 (09:05→18:23)
[2016-12-17] MEDS: Acetaminophen 500 MG Tab PO SCH (09:05)
[2016-12-17] MEDS: PRADAXA 150 MG PO SCH ×2 (09:06→18:23)
[2016-12-17] MEDS: CALCIUM CARBONATE PO SCH (18:23)
[2016-12-17] MEDS: ZINC GLUCONATE PO SCH (18:23)
[2016-12-17] MEDS: MAGNESIUM OXIDE PO SCH (18:23)
[2016-12-17] MEDS: OMEGA FISH OIL PO SCH (18:24)
[2016-12-17] MEDS: [UNRECOGNIZED DRUG - OTHER] PO SCH (18:24)
[2016-12-18] MEDS: LEVOTHYROXINE PO SCH (06:15)
[2016-12-18] MEDS: CHOLECALCIFEROL 2000 UNIT PO SCH (10:57)
[2016-12-18] MEDS: PRADAXA 150 MG PO SCH ×2 (10:57→18:35)
[2016-12-18] MEDS: UBIDECARENONE 100 MG PO SCH ×2 (10:58→18:35)
[2016-12-18] MEDS: Acetaminophen 500 MG Tab PO SCH (10:58)
[2016-12-18] MEDS: CALCIUM CARBONATE PO SCH (18:35)
[2016-12-18] MEDS: MAGNESIUM OXIDE PO SCH (18:35)
[2016-12-18] MEDS: ZINC GLUCONATE PO SCH (18:35)
[2016-12-18] MEDS: [UNRECOGNIZED DRUG - OTHER] PO SCH (18:35)
[2016-12-18] MEDS: OMEGA FISH OIL PO SCH (18:35)
[2016-12-19] MEDS: LEVOTHYROXINE PO SCH (06:16)
[2016-12-19] MEDS: CHOLECALCIFEROL 2000 UNIT PO SCH (09:41)
[2016-12-19] MEDS: PRADAXA 150 MG PO SCH ×2 (09:41→21:30)
[2016-12-19] MEDS: UBIDECARENONE 100 MG PO SCH ×2 (09:41→21:32)
[2016-12-19] MEDS: Acetaminophen 500 MG Tab PO SCH (09:42)
[2016-12-19] MEDS: DEXTRAN EYEBOTH PRN (09:43)
[2016-12-19] MEDS: HYPROMELLOSE EYEBOTH PRN (09:43)
[2016-12-19] MEDS: MAGNESIUM OXIDE PO SCH (21:31)
[2016-12-19] MEDS: [UNRECOGNIZED DRUG - OTHER] PO SCH (21:31)
[2016-12-19] MEDS: CALCIUM CARBONATE PO SCH (21:31)
[2016-12-19] MEDS: OMEGA FISH OIL PO SCH (21:31)
[2016-12-19] MEDS: ZINC GLUCONATE PO SCH (21:31)
[2016-12-20] MEDS: UBIDECARENONE 100 MG PO SCH ×2 (09:49→21:07)
[2016-12-20] MEDS: Acetaminophen 500 MG Tab PO SCH (09:49)
[2016-12-20] MEDS: CHOLECALCIFEROL 2000 UNIT PO SCH (09:49)
[2016-12-20] MEDS: DEXTRAN EYEBOTH PRN (09:50)
[2016-12-20] MEDS: HYPROMELLOSE EYEBOTH PRN (09:50)
[2016-12-20] MEDS: PRADAXA 150 MG PO SCH ×2 (09:50→21:05)
[2016-12-20] MEDS: CALCIUM CARBONATE PO SCH (21:03)
[2016-12-20] MEDS: ZINC GLUCONATE PO SCH (21:03)
[2016-12-20] MEDS: MAGNESIUM OXIDE PO SCH (21:03)
[2016-12-20] MEDS: [UNRECOGNIZED DRUG - OTHER] PO SCH (21:05)
[2016-12-20] MEDS: OMEGA FISH OIL PO SCH (21:09)
[2016-12-21] MEDS: LEVOTHYROXINE PO SCH (06:17)
[2016-12-21] MEDS: PRADAXA 150 MG PO SCH ×2 (09:05→18:02)
[2016-12-21] MEDS: CHOLECALCIFEROL 2000 UNIT PO SCH (09:05)
[2016-12-21] MEDS: UBIDECARENONE 100 MG PO SCH ×2 (09:05→18:01)
[2016-12-21] MEDS: Acetaminophen 500 MG Tab PO SCH (09:06)
[2016-12-21] MEDS: ZINC GLUCONATE PO SCH (18:02)
[2016-12-21] MEDS: MAGNESIUM OXIDE PO SCH (18:02)
[2016-12-21] MEDS: CALCIUM CARBONATE PO SCH (18:02)
[2016-12-21] MEDS: [UNRECOGNIZED DRUG - OTHER] PO SCH (18:02)
[2016-12-21] MEDS: OMEGA FISH OIL PO SCH (18:02)
[2016-12-22] MEDS: LEVOTHYROXINE PO SCH (06:27)
[2016-12-22] MEDS: PRADAXA 150 MG PO SCH ×2 (09:49→18:48)
[2016-12-22] MEDS: Acetaminophen 500 MG Tab PO SCH (09:50)
[2016-12-22] MEDS: CHOLECALCIFEROL 2000 UNIT PO SCH (09:52)
[2016-12-22] MEDS: UBIDECARENONE 100 MG PO SCH ×2 (09:52→18:47)
[2016-12-22] MEDS: OMEGA FISH OIL PO SCH (18:47)
[2016-12-22] MEDS: ZINC GLUCONATE PO SCH (18:47)
[2016-12-22] MEDS: CALCIUM CARBONATE PO SCH (18:47)
[2016-12-22] MEDS: [UNRECOGNIZED DRUG - OTHER] PO SCH (18:47)
[2016-12-22] MEDS: MAGNESIUM OXIDE PO SCH (18:47)
[2016-12-23] MEDS: LEVOTHYROXINE PO SCH (06:03)
[2016-12-23] MEDS: Acetaminophen 500 MG Tab PO SCH (10:29)
[2016-12-23] MEDS: CHOLECALCIFEROL 2000 UNIT PO SCH (10:30)
[2016-12-23] MEDS: UBIDECARENONE 100 MG PO SCH ×2 (10:31→18:00)
[2016-12-23] MEDS: PRADAXA 150 MG PO SCH ×2 (10:31→18:00)
[2016-12-23] MEDS: CALCIUM CARBONATE PO SCH (18:00)
[2016-12-23] MEDS: [UNRECOGNIZED DRUG - OTHER] PO SCH (18:00)
[2016-12-23] MEDS: OMEGA FISH OIL PO SCH (18:00)
[2016-12-23] MEDS: ZINC GLUCONATE PO SCH (18:00)
[2016-12-23] MEDS: MAGNESIUM OXIDE PO SCH (18:00)
[2016-12-24] MEDS: LEVOTHYROXINE PO SCH (10:35)
[2016-12-24] MEDS: UBIDECARENONE 100 MG PO SCH ×2 (10:36→18:48)
[2016-12-24] MEDS: CHOLECALCIFEROL 2000 UNIT PO SCH (10:36)
[2016-12-24] MEDS: PRADAXA 150 MG PO SCH ×2 (10:37→18:47)
[2016-12-24] MEDS: Acetaminophen 500 MG Tab PO SCH (10:38)
[2016-12-24] MEDS: DEXTRAN EYEBOTH PRN (10:42)
[2016-12-24] MEDS: HYPROMELLOSE EYEBOTH PRN (10:42)
[2016-12-24] MEDS: MAGNESIUM OXIDE PO SCH (18:47)
[2016-12-24] MEDS: CALCIUM CARBONATE PO SCH (18:47)
[2016-12-24] MEDS: ZINC GLUCONATE PO SCH (18:47)
[2016-12-24] MEDS: OMEGA FISH OIL PO SCH (18:47)
[2016-12-24] MEDS: [UNRECOGNIZED DRUG - OTHER] PO SCH (18:48)
[2016-12-25] MEDS: LEVOTHYROXINE PO SCH (06:07)
[2016-12-25] MEDS: UBIDECARENONE 100 MG PO SCH ×2 (10:01→18:32)
[2016-12-25] MEDS: PRADAXA 150 MG PO SCH ×2 (10:01→18:32)
[2016-12-25] MEDS: CHOLECALCIFEROL 2000 UNIT PO SCH (10:01)
[2016-12-25] MEDS: Acetaminophen 500 MG Tab PO SCH (10:03)
[2016-12-25] MEDS: MAGNESIUM OXIDE PO SCH (18:32)
[2016-12-25] MEDS: CALCIUM CARBONATE PO SCH (18:32)
[2016-12-25] MEDS: ZINC GLUCONATE PO SCH (18:32)
[2016-12-25] MEDS: [UNRECOGNIZED DRUG - OTHER] PO SCH (18:32)
[2016-12-25] MEDS: OMEGA FISH OIL PO SCH (18:33)
[2016-12-26] MEDS: LEVOTHYROXINE PO SCH (06:48)
[2016-12-26] MEDS: Acetaminophen 500 MG Tab PO SCH (10:58)
[2016-12-26] MEDS: CHOLECALCIFEROL 2000 UNIT PO SCH (10:58)
[2016-12-26] MEDS: PRADAXA 150 MG PO SCH ×2 (10:58→18:10)
[2016-12-26] MEDS: UBIDECARENONE 100 MG PO SCH ×2 (10:58→18:09)
[2016-12-26] MEDS: OMEGA FISH OIL PO SCH (18:10)
[2016-12-26] MEDS: ZINC GLUCONATE PO SCH (18:10)
[2016-12-26] MEDS: CALCIUM CARBONATE PO SCH (18:10)
[2016-12-26] MEDS: [UNRECOGNIZED DRUG - OTHER] PO SCH (18:10)
[2016-12-26] MEDS: MAGNESIUM OXIDE PO SCH (18:10)
[2016-12-27] MEDS: UBIDECARENONE 100 MG PO SCH ×2 (10:23→18:55)
[2016-12-27] MEDS: PRADAXA 150 MG PO SCH ×2 (10:23→18:54)
[2016-12-27] MEDS: Acetaminophen 500 MG Tab PO SCH (10:24)
[2016-12-27] MEDS: CHOLECALCIFEROL 2000 UNIT PO SCH (10:24)
[2016-12-27] MEDS: ZINC GLUCONATE PO SCH (18:55)
[2016-12-27] MEDS: [UNRECOGNIZED DRUG - OTHER] PO SCH (18:55)
[2016-12-27] MEDS: MAGNESIUM OXIDE PO SCH (18:55)
[2016-12-27] MEDS: CALCIUM CARBONATE PO SCH (18:55)
[2016-12-27] MEDS: OMEGA FISH OIL PO SCH (18:55)
[2016-12-28] MEDS: LEVOTHYROXINE PO SCH (06:55)
[2016-12-28] MEDS: PRADAXA 150 MG PO SCH ×2 (10:27→19:36)
[2016-12-28] MEDS: CHOLECALCIFEROL 2000 UNIT PO SCH (10:27)
[2016-12-28] MEDS: UBIDECARENONE 100 MG PO SCH ×2 (10:28→19:36)
[2016-12-28] MEDS: Acetaminophen 500 MG Tab PO SCH (10:29)
[2016-12-28] MEDS: DEXTRAN EYEBOTH PRN (10:33)
[2016-12-28] MEDS: HYPROMELLOSE EYEBOTH PRN (10:33)
[2016-12-28] MEDS: CALCIUM CARBONATE PO SCH (19:36)
[2016-12-28] MEDS: OMEGA FISH OIL PO SCH (19:36)
[2016-12-28] MEDS: MAGNESIUM OXIDE PO SCH (19:36)
[2016-12-28] MEDS: ZINC GLUCONATE PO SCH (19:36)
[2016-12-28] MEDS: [UNRECOGNIZED DRUG - OTHER] PO SCH (19:36)
[2016-12-29] MEDS: LEVOTHYROXINE PO SCH (06:30)
[2016-12-29] MEDS: PRADAXA 150 MG PO SCH ×2 (09:50→18:08)
[2016-12-29] MEDS: CHOLECALCIFEROL 2000 UNIT PO SCH (09:51)
[2016-12-29] MEDS: UBIDECARENONE 100 MG PO SCH ×2 (09:52→18:09)
[2016-12-29] MEDS: Acetaminophen 500 MG Tab PO SCH (09:53)
[2016-12-29] MEDS: MAGNESIUM OXIDE PO SCH (18:09)
[2016-12-29] MEDS: CALCIUM CARBONATE PO SCH (18:09)
[2016-12-29] MEDS: ZINC GLUCONATE PO SCH (18:09)
[2016-12-29] MEDS: OMEGA FISH OIL PO SCH (18:10)
[2016-12-29] MEDS: [UNRECOGNIZED DRUG - OTHER] PO SCH (18:10)
[2016-12-30] MEDS: LEVOTHYROXINE PO SCH (06:05)
[2016-12-30] MEDS: CHOLECALCIFEROL 2000 UNIT PO SCH (10:37)
[2016-12-30] MEDS: PRADAXA 150 MG PO SCH ×2 (10:38→18:25)
[2016-12-30] MEDS: Acetaminophen 500 MG Tab PO SCH (10:39)
[2016-12-30] MEDS: UBIDECARENONE 100 MG PO SCH (10:40)
[2016-12-30] MEDS: HYPROMELLOSE EYEBOTH PRN (10:41)
[2016-12-30] MEDS: DEXTRAN EYEBOTH PRN (10:41)
[2016-12-30] MEDS: ZINC GLUCONATE PO SCH (18:25)
[2016-12-30] MEDS: CALCIUM CARBONATE PO SCH (18:25)
[2016-12-30] MEDS: UBIDECARENONE 200 MG PO SCH (18:25)
[2016-12-30] MEDS: MAGNESIUM OXIDE PO SCH (18:25)
[2016-12-30] MEDS: OMEGA FISH OIL PO SCH (18:25)
[2016-12-30] MEDS: [UNRECOGNIZED DRUG - OTHER] PO SCH (18:26)
[2016-12-31] MEDS: LEVOTHYROXINE PO SCH (06:06)
[2016-12-31] MEDS: CHOLECALCIFEROL 2000 UNIT PO SCH (10:33)
[2016-12-31] MEDS: PRADAXA 150 MG PO SCH ×2 (10:34→18:44)
[2016-12-31] MEDS: Acetaminophen 500 MG Tab PO SCH (10:34)
[2016-12-31] MEDS: UBIDECARENONE 200 MG PO SCH ×2 (10:37→18:45)
[2016-12-31] MEDS: ZINC GLUCONATE PO SCH (18:45)
[2016-12-31] MEDS: OMEGA FISH OIL PO SCH (18:45)
[2016-12-31] MEDS: [UNRECOGNIZED DRUG - OTHER] PO SCH (18:45)
[2016-12-31] MEDS: CALCIUM CARBONATE PO SCH (18:45)
[2016-12-31] MEDS: MAGNESIUM OXIDE PO SCH (18:45)
[2017-01-01] MEDS: LEVOTHYROXINE PO SCH (06:13)
[2017-01-01] MEDS: CHOLECALCIFEROL 2000 UNIT PO SCH (09:10)
[2017-01-01] MEDS: PRADAXA 150 MG PO SCH ×2 (09:10→19:50)
[2017-01-01] MEDS: Acetaminophen 500 MG Tab PO SCH (09:11)
[2017-01-01] MEDS: UBIDECARENONE 200 MG PO SCH (09:17)
[2017-01-01] MEDS: HYPROMELLOSE EYEBOTH PRN (09:18)
[2017-01-01] MEDS: DEXTRAN EYEBOTH PRN (09:18)
[2017-01-01] MEDS: CALCIUM CARBONATE PO SCH (19:50)
[2017-01-01] MEDS: [UNRECOGNIZED DRUG - OTHER] PO SCH (19:50)
[2017-01-01] MEDS: ZINC GLUCONATE PO SCH (19:50)
[2017-01-01] MEDS: OMEGA FISH OIL PO SCH (19:50)
[2017-01-01] MEDS: MAGNESIUM OXIDE PO SCH (19:50)
[2017-01-02] MEDS: LEVOTHYROXINE PO SCH (07:03)
[2017-01-02] MEDS: PRADAXA 150 MG PO SCH ×2 (10:56→19:27)
[2017-01-02] MEDS: UBIDECARENONE 200 MG PO SCH (10:56)
[2017-01-02] MEDS: CHOLECALCIFEROL 2000 UNIT PO SCH (10:56)
[2017-01-02] MEDS: Acetaminophen 500 MG Tab PO SCH (10:57)
[2017-01-02] MEDS: ZINC GLUCONATE PO SCH (19:28)
[2017-01-02] MEDS: [UNRECOGNIZED DRUG - OTHER] PO SCH (19:28)
[2017-01-02] MEDS: OMEGA FISH OIL PO SCH (19:28)
[2017-01-02] MEDS: CALCIUM CARBONATE PO SCH (19:28)
[2017-01-02] MEDS: MAGNESIUM OXIDE PO SCH (19:28)
[2017-01-03] MEDS: Acetaminophen 500 MG Tab PO SCH (09:51)
[2017-01-03] MEDS: UBIDECARENONE 200 MG PO SCH (09:52)
[2017-01-03] MEDS: PRADAXA 150 MG PO SCH ×2 (09:52→18:30)
[2017-01-03] MEDS: CHOLECALCIFEROL 2000 UNIT PO SCH (09:52)
[2017-01-03] MEDS: CALCIUM CARBONATE PO SCH (18:29)
[2017-01-03] MEDS: ZINC GLUCONATE PO SCH (18:29)
[2017-01-03] MEDS: MAGNESIUM OXIDE PO SCH (18:29)
[2017-01-03] MEDS: OMEGA FISH OIL PO SCH (18:30)
[2017-01-03] MEDS: [UNRECOGNIZED DRUG - OTHER] PO SCH (18:30)
[2017-01-04] MEDS: LEVOTHYROXINE PO SCH (07:00)
[2017-01-04] MEDS: Acetaminophen 500 MG Tab PO SCH (10:49)
[2017-01-04] MEDS: CHOLECALCIFEROL 2000 UNIT PO SCH (10:50)
[2017-01-04] MEDS: PRADAXA 150 MG PO SCH ×2 (10:50→18:32)
[2017-01-04] MEDS: UBIDECARENONE 200 MG PO SCH (10:50)
[2017-01-04] MEDS: [UNRECOGNIZED DRUG - OTHER] PO SCH (18:31)
[2017-01-04] MEDS: OMEGA FISH OIL PO SCH (18:31)
[2017-01-04] MEDS: MAGNESIUM OXIDE PO SCH (18:31)
[2017-01-04] MEDS: ZINC GLUCONATE PO SCH (18:31)
[2017-01-04] MEDS: CALCIUM CARBONATE PO SCH (18:31)
[2017-01-05] MEDS: LEVOTHYROXINE PO SCH (06:35)
[2017-01-05] MEDS: UBIDECARENONE 200 MG PO SCH (10:25)
[2017-01-05] MEDS: CHOLECALCIFEROL 2000 UNIT PO SCH (10:26)
[2017-01-05] MEDS: PRADAXA 150 MG PO SCH ×2 (10:26→18:15)
[2017-01-05] MEDS: Acetaminophen 500 MG Tab PO SCH (10:26)
[2017-01-05] MEDS: OMEGA FISH OIL PO SCH (18:14)
[2017-01-05] MEDS: CALCIUM CARBONATE PO SCH (18:15)
[2017-01-05] MEDS: MAGNESIUM OXIDE PO SCH (18:15)
[2017-01-05] MEDS: [UNRECOGNIZED DRUG - OTHER] PO SCH (18:15)
[2017-01-05] MEDS: ZINC GLUCONATE PO SCH (18:15)
[2017-01-06] MEDS: LEVOTHYROXINE PO SCH (06:17)
[2017-01-06] MEDS: PRADAXA 150 MG PO SCH ×2 (09:37→18:10)
[2017-01-06] MEDS: CHOLECALCIFEROL 2000 UNIT PO SCH (09:37)
[2017-01-06] MEDS: UBIDECARENONE 200 MG PO SCH (09:39)
[2017-01-06] MEDS: Acetaminophen 500 MG Tab PO SCH (09:40)
[2017-01-06] MEDS: MAGNESIUM OXIDE PO SCH (18:09)
[2017-01-06] MEDS: [UNRECOGNIZED DRUG - OTHER] PO SCH (18:09)
[2017-01-06] MEDS: CALCIUM CARBONATE PO SCH (18:09)
[2017-01-06] MEDS: ZINC GLUCONATE PO SCH (18:09)
[2017-01-06] MEDS: OMEGA FISH OIL PO SCH (18:09)
[2017-01-07] MEDS: LEVOTHYROXINE PO SCH (06:05)
[2017-01-07] MEDS: CHOLECALCIFEROL 2000 UNIT PO SCH (09:29)
[2017-01-07] MEDS: PRADAXA 150 MG PO SCH ×2 (09:30→18:27)
[2017-01-07] MEDS: Acetaminophen 500 MG Tab PO SCH (09:31)
[2017-01-07] MEDS: UBIDECARENONE 200 MG PO SCH (11:48)
[2017-01-07] MEDS: OMEGA FISH OIL PO SCH (18:25)
[2017-01-07] MEDS: [UNRECOGNIZED DRUG - OTHER] PO SCH (18:26)
[2017-01-07] MEDS: CALCIUM CARBONATE PO SCH (18:26)
[2017-01-07] MEDS: MAGNESIUM OXIDE PO SCH (18:26)
[2017-01-07] MEDS: ZINC GLUCONATE PO SCH (18:26)
[2017-01-08] MEDS: LEVOTHYROXINE PO SCH (06:06)
[2017-01-08] MEDS: CHOLECALCIFEROL 2000 UNIT PO SCH (09:20)
[2017-01-08] MEDS: PRADAXA 150 MG PO SCH ×2 (09:20→18:39)
[2017-01-08] MEDS: UBIDECARENONE 200 MG PO SCH (09:21)
[2017-01-08] MEDS: Acetaminophen 500 MG Tab PO SCH (09:21)
[2017-01-08] MEDS: OMEGA FISH OIL PO SCH (18:29)
[2017-01-08] MEDS: CALCIUM CARBONATE PO SCH (18:30)
[2017-01-08] MEDS: ZINC GLUCONATE PO SCH (18:30)
[2017-01-08] MEDS: MAGNESIUM OXIDE PO SCH (18:30)
[2017-01-08] MEDS: [UNRECOGNIZED DRUG - OTHER] PO SCH (18:30)
[2017-01-09] MEDS: LEVOTHYROXINE PO SCH (06:10)
--- NOTE | 2017-01-09 08:31 | PN ---
Progress Note for EMILY SHEETS Date: 01/08/2017 Room #: SUBJECTIVE: This is an 86-year-old on long-term swing bed due to impaired mobility from osteoarthritis. The patient is having increasing difficulty getting out of a chair. She is requiring continued assistance by staff. She does have a lift chair that she would like to brought in. She cannot walk very far and she has quite a bit of left knee pain. She states when she gets up, then she knows if her knee is going to be stable or not. Otherwise, she has not had any other issues recently. We repeated her lab work this week and her hemoglobin improved back up to 13.1, that was checked after she had some rectal bleeding. She was off Pradaxa for a while, but is now back on and doing well. OBJECTIVE: Vital Signs: Her temperature is 97.9, pulse 64, blood pressure 132/63, respiratory rate 16, and O2 of 92% on room air. General: She is in no acute distress. Lungs: Sounds are clear to auscultation bilaterally without crackles or wheezes. Heart: Does have a murmur noted. Extremities: Warm and dry. No edema. Mental Status: She is alert and oriented x3. ASSESSMENT AND PLAN: 1. 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 We will get her up and working with therapies. Did mention that she can come over to the clinic for a knee injection if pain were to be an issue. She thinks she will just monitor and wait at this time. 2. Chronic vulvar and vaginal irritation. Seems to be stable on her current regimen. 3. Essential hypertension, controlled. 4. Atrial fibrillation, paroxysmal, seems to be in a sinus rhythm. She is on Pradaxa for stroke prevention. 5. Mild anemia, resolved, on recent CBC. No lab work due. 6. Hypothyroidism. PLAN: At this point, the patient will continue swing bed cares. She should not require any blood work until the fall around May. We will keep medications the same. We will have her seen by therapies. DEREKA: 01/08/2017 12:36:59 MODL: 01/08/2017 12:49:35 /[id number]
[2017-01-09] MEDS: CHOLECALCIFEROL 2000 UNIT PO SCH (10:22)
[2017-01-09] MEDS: UBIDECARENONE 200 MG PO SCH (10:23)
[2017-01-09] MEDS: PRADAXA 150 MG PO SCH ×2 (10:23→18:02)
[2017-01-09] MEDS: Acetaminophen 500 MG Tab PO SCH (10:25)
[2017-01-09] MEDS: HYPROMELLOSE EYEBOTH PRN (10:28)
[2017-01-09] MEDS: DEXTRAN EYEBOTH PRN (10:28)
[2017-01-09] MEDS: [UNRECOGNIZED DRUG - OTHER] PO SCH (18:00)
[2017-01-09] MEDS: MAGNESIUM OXIDE PO SCH (18:00)
[2017-01-09] MEDS: ZINC GLUCONATE PO SCH (18:00)
[2017-01-09] MEDS: CALCIUM CARBONATE PO SCH (18:00)
[2017-01-09] MEDS: OMEGA FISH OIL PO SCH (18:00)
[2017-01-10] MEDS: CHOLECALCIFEROL 2000 UNIT PO SCH (10:14)
[2017-01-10] MEDS: UBIDECARENONE 200 MG PO SCH (10:14)
[2017-01-10] MEDS: PRADAXA 150 MG PO SCH ×2 (10:16→18:05)
[2017-01-10] MEDS: Acetaminophen 500 MG Tab PO SCH (10:18)
[2017-01-10] MEDS: ZINC GLUCONATE PO SCH (18:05)
[2017-01-10] MEDS: MAGNESIUM OXIDE PO SCH (18:05)
[2017-01-10] MEDS: CALCIUM CARBONATE PO SCH (18:05)
[2017-01-10] MEDS: OMEGA FISH OIL PO SCH (18:05)
[2017-01-10] MEDS: [UNRECOGNIZED DRUG - OTHER] PO SCH (18:05)
[2017-01-11] MEDS: LEVOTHYROXINE PO SCH (06:40)
[2017-01-11] MEDS: CHOLECALCIFEROL 2000 UNIT PO SCH (10:15)
[2017-01-11] MEDS: PRADAXA 150 MG PO SCH ×2 (10:15→18:13)
[2017-01-11] MEDS: UBIDECARENONE 200 MG PO SCH (10:15)
[2017-01-11] MEDS: Acetaminophen 500 MG Tab PO SCH (10:16)
[2017-01-11] MEDS: OMEGA FISH OIL PO SCH (18:12)
[2017-01-11] MEDS: [UNRECOGNIZED DRUG - OTHER] PO SCH (18:12)
[2017-01-11] MEDS: CALCIUM CARBONATE PO SCH (18:13)
[2017-01-11] MEDS: MAGNESIUM OXIDE PO SCH (18:13)
[2017-01-11] MEDS: ZINC GLUCONATE PO SCH (18:13)
[2017-01-12] MEDS: LEVOTHYROXINE PO SCH (06:21)
[2017-01-12] MEDS: CHOLECALCIFEROL 2000 UNIT PO SCH (10:37)
[2017-01-12] MEDS: UBIDECARENONE 200 MG PO SCH (10:37)
[2017-01-12] MEDS: Acetaminophen 500 MG Tab PO SCH (10:38)
[2017-01-12] MEDS: PRADAXA 150 MG PO SCH ×2 (10:39→18:31)
[2017-01-12] MEDS: DEXTRAN EYEBOTH PRN (10:41)
[2017-01-12] MEDS: HYPROMELLOSE EYEBOTH PRN (10:41)
[2017-01-12] MEDS: [UNRECOGNIZED DRUG - OTHER] PO SCH (18:29)
[2017-01-12] MEDS: MAGNESIUM OXIDE PO SCH (18:29)
[2017-01-12] MEDS: CALCIUM CARBONATE PO SCH (18:29)
[2017-01-12] MEDS: OMEGA FISH OIL PO SCH (18:29)
[2017-01-12] MEDS: ZINC GLUCONATE PO SCH (18:29)
[2017-01-13] MEDS: LEVOTHYROXINE PO SCH (06:00)
[2017-01-13] MEDS: CHOLECALCIFEROL 2000 UNIT PO SCH (10:08)
[2017-01-13] MEDS: UBIDECARENONE 200 MG PO SCH (10:09)
[2017-01-13] MEDS: PRADAXA 150 MG PO SCH ×2 (10:10→18:29)
[2017-01-13] MEDS: Acetaminophen 500 MG Tab PO SCH (10:10)
[2017-01-13] MEDS: OMEGA FISH OIL PO SCH (18:28)
[2017-01-13] MEDS: [UNRECOGNIZED DRUG - OTHER] PO SCH (18:28)
[2017-01-13] MEDS: ZINC GLUCONATE PO SCH (18:28)
[2017-01-13] MEDS: MAGNESIUM OXIDE PO SCH (18:28)
[2017-01-13] MEDS: CALCIUM CARBONATE PO SCH (18:28)
[2017-01-14] MEDS: LEVOTHYROXINE PO SCH (06:03)
[2017-01-14] MEDS: UBIDECARENONE 200 MG PO SCH (10:27)
[2017-01-14] MEDS: CHOLECALCIFEROL 2000 UNIT PO SCH (10:27)
[2017-01-14] MEDS: Acetaminophen 500 MG Tab PO SCH (10:27)
[2017-01-14] MEDS: PRADAXA 150 MG PO SCH ×2 (10:28→18:17)
[2017-01-14] MEDS: [UNRECOGNIZED DRUG - OTHER] PO SCH (18:17)
[2017-01-14] MEDS: OMEGA FISH OIL PO SCH (18:17)
[2017-01-14] MEDS: CALCIUM CARBONATE PO SCH (18:18)
[2017-01-14] MEDS: MAGNESIUM OXIDE PO SCH (18:18)
[2017-01-14] MEDS: ZINC GLUCONATE PO SCH (18:18)
[2017-01-15] MEDS: LEVOTHYROXINE PO SCH (06:11)
[2017-01-15] MEDS: UBIDECARENONE 200 MG PO SCH (09:49)
[2017-01-15] MEDS: PRADAXA 150 MG PO SCH ×2 (09:49→19:47)
[2017-01-15] MEDS: CHOLECALCIFEROL 2000 UNIT PO SCH (09:50)
[2017-01-15] MEDS: Acetaminophen 500 MG Tab PO SCH (09:51)
[2017-01-15] MEDS: MAGNESIUM OXIDE PO SCH (19:46)
[2017-01-15] MEDS: CALCIUM CARBONATE PO SCH (19:46)
[2017-01-15] MEDS: ZINC GLUCONATE PO SCH (19:46)
[2017-01-15] MEDS: OMEGA FISH OIL PO SCH (19:47)
[2017-01-15] MEDS: [UNRECOGNIZED DRUG - OTHER] PO SCH (19:48)
[2017-01-16] MEDS: LEVOTHYROXINE PO SCH (06:07)
[2017-01-16] MEDS: CHOLECALCIFEROL 2000 UNIT PO SCH (10:22)
[2017-01-16] MEDS: PRADAXA 150 MG PO SCH ×2 (10:22→18:01)
[2017-01-16] MEDS: UBIDECARENONE 200 MG PO SCH (10:23)
[2017-01-16] MEDS: Acetaminophen 500 MG Tab PO SCH (10:24)
[2017-01-16] MEDS: HYPROMELLOSE EYEBOTH PRN (10:41)
[2017-01-16] MEDS: DEXTRAN EYEBOTH PRN (10:41)
[2017-01-16] MEDS: [UNRECOGNIZED DRUG - OTHER] PO SCH (18:01)
[2017-01-16] MEDS: MAGNESIUM OXIDE PO SCH (18:01)
[2017-01-16] MEDS: OMEGA FISH OIL PO SCH (18:01)
[2017-01-16] MEDS: CALCIUM CARBONATE PO SCH (18:01)
[2017-01-16] MEDS: ZINC GLUCONATE PO SCH (18:01)
[2017-01-17] MEDS: PRADAXA 150 MG PO SCH ×2 (09:30→18:23)
[2017-01-17] MEDS: UBIDECARENONE 200 MG PO SCH (09:30)
[2017-01-17] MEDS: CHOLECALCIFEROL 2000 UNIT PO SCH (09:30)
[2017-01-17] MEDS: Acetaminophen 500 MG Tab PO SCH (09:31)
[2017-01-17] MEDS: OMEGA FISH OIL PO SCH (18:23)
[2017-01-17] MEDS: CALCIUM CARBONATE PO SCH (18:24)
[2017-01-17] MEDS: MAGNESIUM OXIDE PO SCH (18:24)
[2017-01-17] MEDS: ZINC GLUCONATE PO SCH (18:24)
[2017-01-17] MEDS: [UNRECOGNIZED DRUG - OTHER] PO SCH (18:24)
[2017-01-18] MEDS: LEVOTHYROXINE PO SCH (06:05)
[2017-01-18] MEDS: CHOLECALCIFEROL 2000 UNIT PO SCH (09:43)
[2017-01-18] MEDS: PRADAXA 150 MG PO SCH ×2 (09:43→18:16)
[2017-01-18] MEDS: UBIDECARENONE 200 MG PO SCH (09:43)
[2017-01-18] MEDS: Acetaminophen 500 MG Tab PO SCH (09:44)
[2017-01-18] MEDS: ZINC GLUCONATE PO SCH (18:16)
[2017-01-18] MEDS: MAGNESIUM OXIDE PO SCH (18:16)
[2017-01-18] MEDS: CALCIUM CARBONATE PO SCH (18:16)
[2017-01-18] MEDS: OMEGA FISH OIL PO SCH (18:17)
[2017-01-18] MEDS: [UNRECOGNIZED DRUG - OTHER] PO SCH (18:17)
[2017-01-19] MEDS: LEVOTHYROXINE PO SCH (07:38)
[2017-01-19] MEDS: CHOLECALCIFEROL 2000 UNIT PO SCH (10:33)
[2017-01-19] MEDS: UBIDECARENONE 200 MG PO SCH (10:33)
[2017-01-19] MEDS: PRADAXA 150 MG PO SCH ×2 (10:34→18:23)
[2017-01-19] MEDS: Acetaminophen 500 MG Tab PO SCH (10:34)
[2017-01-19] MEDS: OMEGA FISH OIL PO SCH (18:23)
[2017-01-19] MEDS: CALCIUM CARBONATE PO SCH (18:23)
[2017-01-19] MEDS: [UNRECOGNIZED DRUG - OTHER] PO SCH (18:23)
[2017-01-19] MEDS: MAGNESIUM OXIDE PO SCH (18:23)
[2017-01-19] MEDS: ZINC GLUCONATE PO SCH (18:23)
[2017-01-20] MEDS: LEVOTHYROXINE PO SCH (05:59)
[2017-01-20] MEDS: CHOLECALCIFEROL 2000 UNIT PO SCH (09:58)
[2017-01-20] MEDS: UBIDECARENONE 200 MG PO SCH (09:59)
[2017-01-20] MEDS: PRADAXA 150 MG PO SCH ×2 (09:59→18:06)
[2017-01-20] MEDS: Acetaminophen 500 MG Tab PO SCH (10:00)
[2017-01-20] MEDS: [UNRECOGNIZED DRUG - OTHER] PO SCH (18:05)
[2017-01-20] MEDS: CALCIUM CARBONATE PO SCH (18:05)
[2017-01-20] MEDS: MAGNESIUM OXIDE PO SCH (18:05)
[2017-01-20] MEDS: OMEGA FISH OIL PO SCH (18:05)
[2017-01-20] MEDS: ZINC GLUCONATE PO SCH (18:05)
[2017-01-21] MEDS: LEVOTHYROXINE PO SCH (06:10)
[2017-01-21] MEDS: Acetaminophen 500 MG Tab PO SCH (10:47)
[2017-01-21] MEDS: PRADAXA 150 MG PO SCH ×2 (10:48→18:30)
[2017-01-21] MEDS: CHOLECALCIFEROL 2000 UNIT PO SCH (10:48)
[2017-01-21] MEDS: UBIDECARENONE 200 MG PO SCH (10:48)
[2017-01-21] MEDS: [UNRECOGNIZED DRUG - OTHER] PO SCH (18:29)
[2017-01-21] MEDS: ZINC GLUCONATE PO SCH (18:29)
[2017-01-21] MEDS: OMEGA FISH OIL PO SCH (18:29)
[2017-01-21] MEDS: CALCIUM CARBONATE PO SCH (18:29)
[2017-01-21] MEDS: MAGNESIUM OXIDE PO SCH (18:29)
[2017-01-22] MEDS: LEVOTHYROXINE PO SCH (06:09)
[2017-01-22] MEDS: Acetaminophen 500 MG Tab PO SCH (10:36)
[2017-01-22] MEDS: UBIDECARENONE 200 MG PO SCH (10:37)
[2017-01-22] MEDS: CHOLECALCIFEROL 2000 UNIT PO SCH (10:37)
[2017-01-22] MEDS: PRADAXA 150 MG PO SCH ×2 (10:38→18:24)
[2017-01-22] MEDS: [UNRECOGNIZED DRUG - OTHER] PO SCH (18:24)
[2017-01-22] MEDS: MAGNESIUM OXIDE PO SCH (18:25)
[2017-01-22] MEDS: OMEGA FISH OIL PO SCH (18:25)
[2017-01-22] MEDS: ZINC GLUCONATE PO SCH (18:25)
[2017-01-22] MEDS: CALCIUM CARBONATE PO SCH (18:25)
[2017-01-23] MEDS: LEVOTHYROXINE PO SCH (06:09)
[2017-01-23] MEDS: PRADAXA 150 MG PO SCH ×2 (09:55→18:08)
[2017-01-23] MEDS: UBIDECARENONE 200 MG PO SCH (09:56)
[2017-01-23] MEDS: CHOLECALCIFEROL 2000 UNIT PO SCH (09:56)
[2017-01-23] MEDS: Acetaminophen 500 MG Tab PO SCH (09:57)
[2017-01-23] MEDS: OMEGA FISH OIL PO SCH (18:08)
[2017-01-23] MEDS: MAGNESIUM OXIDE PO SCH (18:09)
[2017-01-23] MEDS: ZINC GLUCONATE PO SCH (18:09)
[2017-01-23] MEDS: [UNRECOGNIZED DRUG - OTHER] PO SCH (18:09)
[2017-01-23] MEDS: CALCIUM CARBONATE PO SCH (18:09)
[2017-01-24] MEDS: PRADAXA 150 MG PO SCH ×2 (09:39→18:47)
[2017-01-24] MEDS: Acetaminophen 500 MG Tab PO SCH (09:40)
[2017-01-24] MEDS: UBIDECARENONE 200 MG PO SCH (09:41)
[2017-01-24] MEDS: CHOLECALCIFEROL 2000 UNIT PO SCH (09:43)
[2017-01-24] MEDS: [UNRECOGNIZED DRUG - OTHER] PO SCH (18:45)
[2017-01-24] MEDS: OMEGA FISH OIL PO SCH (18:46)
[2017-01-24] MEDS: MAGNESIUM OXIDE PO SCH (18:46)
[2017-01-24] MEDS: ZINC GLUCONATE PO SCH (18:46)
[2017-01-24] MEDS: CALCIUM CARBONATE PO SCH (18:46)
[2017-01-25] MEDS: LEVOTHYROXINE PO SCH (06:02)
[2017-01-25] MEDS: Acetaminophen 500 MG Tab PO SCH (09:25)
[2017-01-25] MEDS: PRADAXA 150 MG PO SCH ×2 (09:25→18:17)
[2017-01-25] MEDS: UBIDECARENONE 200 MG PO SCH (09:26)
[2017-01-25] MEDS: CHOLECALCIFEROL 2000 UNIT PO SCH (09:27)
[2017-01-25] MEDS: OMEGA FISH OIL PO SCH (18:18)
[2017-01-25] MEDS: [UNRECOGNIZED DRUG - OTHER] PO SCH (18:18)
[2017-01-25] MEDS: MAGNESIUM OXIDE PO SCH (18:19)
[2017-01-25] MEDS: ZINC GLUCONATE PO SCH (18:19)
[2017-01-25] MEDS: CALCIUM CARBONATE PO SCH (18:19)
[2017-01-26] MEDS: LEVOTHYROXINE PO SCH (06:22)
[2017-01-26] MEDS: Acetaminophen 500 MG Tab PO SCH (10:18)
[2017-01-26] MEDS: PRADAXA 150 MG PO SCH ×2 (10:18→18:20)
[2017-01-26] MEDS: CHOLECALCIFEROL 2000 UNIT PO SCH (10:19)
[2017-01-26] MEDS: UBIDECARENONE 200 MG PO SCH (10:19)
[2017-01-26] MEDS: ZINC GLUCONATE PO SCH (18:19)
[2017-01-26] MEDS: MAGNESIUM OXIDE PO SCH (18:19)
[2017-01-26] MEDS: CALCIUM CARBONATE PO SCH (18:19)
[2017-01-26] MEDS: [UNRECOGNIZED DRUG - OTHER] PO SCH (18:20)
[2017-01-26] MEDS: OMEGA FISH OIL PO SCH (18:20)
[2017-01-27] MEDS: LEVOTHYROXINE PO SCH (06:40)
[2017-01-27] MEDS: UBIDECARENONE 200 MG PO SCH (10:39)
[2017-01-27] MEDS: CHOLECALCIFEROL 2000 UNIT PO SCH (10:39)
[2017-01-27] MEDS: PRADAXA 150 MG PO SCH ×2 (10:40→18:52)
[2017-01-27] MEDS: Acetaminophen 500 MG Tab PO SCH (10:40)
[2017-01-27] MEDS: HYPROMELLOSE EYEBOTH PRN (10:41)
[2017-01-27] MEDS: DEXTRAN EYEBOTH PRN (10:41)
[2017-01-27] MEDS: [UNRECOGNIZED DRUG - OTHER] PO SCH (18:52)
[2017-01-27] MEDS: OMEGA FISH OIL PO SCH (18:52)
[2017-01-27] MEDS: ZINC GLUCONATE PO SCH (18:53)
[2017-01-27] MEDS: MAGNESIUM OXIDE PO SCH (18:53)
[2017-01-27] MEDS: CALCIUM CARBONATE PO SCH (18:53)
[2017-01-28] MEDS: LEVOTHYROXINE PO SCH (06:17)
[2017-01-28] MEDS: UBIDECARENONE 200 MG PO SCH (10:27)
[2017-01-28] MEDS: Acetaminophen 500 MG Tab PO SCH (10:27)
[2017-01-28] MEDS: PRADAXA 150 MG PO SCH ×2 (10:28→18:15)
[2017-01-28] MEDS: CHOLECALCIFEROL 2000 UNIT PO SCH (10:28)
[2017-01-28] MEDS: OMEGA FISH OIL PO SCH (18:14)
[2017-01-28] MEDS: CALCIUM CARBONATE PO SCH (18:14)
[2017-01-28] MEDS: [UNRECOGNIZED DRUG - OTHER] PO SCH (18:14)
[2017-01-28] MEDS: MAGNESIUM OXIDE PO SCH (18:14)
[2017-01-28] MEDS: ZINC GLUCONATE PO SCH (18:14)
[2017-01-29] MEDS: LEVOTHYROXINE PO SCH (06:16)
[2017-01-29] MEDS: PRADAXA 150 MG PO SCH ×2 (10:59→18:08)
[2017-01-29] MEDS: Acetaminophen 500 MG Tab PO SCH (10:59)
[2017-01-29] MEDS: UBIDECARENONE 200 MG PO SCH (11:00)
[2017-01-29] MEDS: CHOLECALCIFEROL 2000 UNIT PO SCH (11:00)
[2017-01-29] MEDS: OMEGA FISH OIL PO SCH (18:08)
[2017-01-29] MEDS: CALCIUM CARBONATE PO SCH (18:08)
[2017-01-29] MEDS: ZINC GLUCONATE PO SCH (18:08)
[2017-01-29] MEDS: MAGNESIUM OXIDE PO SCH (18:08)
[2017-01-29] MEDS: [UNRECOGNIZED DRUG - OTHER] PO SCH (18:08)
[2017-01-30] MEDS: LEVOTHYROXINE PO SCH (06:08)
[2017-01-30] MEDS: PRADAXA 150 MG PO SCH ×2 (09:58→18:16)
[2017-01-30] MEDS: UBIDECARENONE 200 MG PO SCH (09:59)
[2017-01-30] MEDS: Acetaminophen 500 MG Tab PO SCH (09:59)
[2017-01-30] MEDS: CHOLECALCIFEROL 2000 UNIT PO SCH (09:59)
[2017-01-30] MEDS: OMEGA FISH OIL PO SCH (18:16)
[2017-01-30] MEDS: CALCIUM CARBONATE PO SCH (18:17)
[2017-01-30] MEDS: [UNRECOGNIZED DRUG - OTHER] PO SCH (18:17)
[2017-01-30] MEDS: MAGNESIUM OXIDE PO SCH (18:17)
[2017-01-30] MEDS: ZINC GLUCONATE PO SCH (18:17)
[2017-01-31] MEDS: PRADAXA 150 MG PO SCH ×2 (09:56→18:44)
[2017-01-31] MEDS: CHOLECALCIFEROL 2000 UNIT PO SCH (09:57)
[2017-01-31] MEDS: UBIDECARENONE 200 MG PO SCH (09:57)
[2017-01-31] MEDS: Acetaminophen 500 MG Tab PO SCH (09:58)
[2017-01-31] MEDS: [UNRECOGNIZED DRUG - OTHER] TOP PRN (10:07)
[2017-01-31] MEDS: LIDOCAINE 2% TOP PRN (10:07)
[2017-01-31] MEDS: [UNRECOGNIZED DRUG - OTHER] PO SCH (18:44)
[2017-01-31] MEDS: ZINC GLUCONATE PO SCH (18:45)
[2017-01-31] MEDS: MAGNESIUM OXIDE PO SCH (18:45)
[2017-01-31] MEDS: OMEGA FISH OIL PO SCH (18:45)
[2017-01-31] MEDS: CALCIUM CARBONATE PO SCH (18:45)
[2017-02-01] MEDS: LEVOTHYROXINE PO SCH (06:45)
[2017-02-01] MEDS: PRADAXA 150 MG PO SCH ×2 (09:19→18:20)
[2017-02-01] MEDS: Acetaminophen 500 MG Tab PO SCH (09:19)
[2017-02-01] MEDS: UBIDECARENONE 200 MG PO SCH (09:19)
[2017-02-01] MEDS: CHOLECALCIFEROL 2000 UNIT PO SCH (09:19)
[2017-02-01] MEDS: CALCIUM CARBONATE PO SCH (18:20)
[2017-02-01] MEDS: [UNRECOGNIZED DRUG - OTHER] PO SCH (18:20)
[2017-02-01] MEDS: OMEGA FISH OIL PO SCH (18:20)
[2017-02-01] MEDS: ZINC GLUCONATE PO SCH (18:20)
[2017-02-01] MEDS: MAGNESIUM OXIDE PO SCH (18:20)
[2017-02-02] MEDS: LEVOTHYROXINE PO SCH (07:03)
[2017-02-02] MEDS: CHOLECALCIFEROL 2000 UNIT PO SCH (10:02)
[2017-02-02] MEDS: UBIDECARENONE 200 MG PO SCH (10:02)
[2017-02-02] MEDS: PRADAXA 150 MG PO SCH ×2 (10:03→17:59)
[2017-02-02] MEDS: Acetaminophen 500 MG Tab PO SCH (10:03)
[2017-02-02] MEDS: LIDOCAINE 2% TOP PRN (10:04)
[2017-02-02] MEDS: [UNRECOGNIZED DRUG - OTHER] TOP PRN (10:04)
[2017-02-02] MEDS: MAGNESIUM OXIDE PO SCH (17:59)
[2017-02-02] MEDS: [UNRECOGNIZED DRUG - OTHER] PO SCH (17:59)
[2017-02-02] MEDS: CALCIUM CARBONATE PO SCH (17:59)
[2017-02-02] MEDS: OMEGA FISH OIL PO SCH (17:59)
[2017-02-02] MEDS: ZINC GLUCONATE PO SCH (17:59)
[2017-02-03] MEDS: LEVOTHYROXINE PO SCH (06:37)
[2017-02-03] MEDS: PRADAXA 150 MG PO SCH ×2 (09:44→18:29)
[2017-02-03] MEDS: CHOLECALCIFEROL 2000 UNIT PO SCH (09:45)
[2017-02-03] MEDS: UBIDECARENONE 200 MG PO SCH (09:45)
[2017-02-03] MEDS: Acetaminophen 500 MG Tab PO SCH (09:46)
[2017-02-03] MEDS: ZINC GLUCONATE PO SCH (18:30)
[2017-02-03] MEDS: CALCIUM CARBONATE PO SCH (18:30)
[2017-02-03] MEDS: OMEGA FISH OIL PO SCH (18:30)
[2017-02-03] MEDS: MAGNESIUM OXIDE PO SCH (18:30)
[2017-02-03] MEDS: [UNRECOGNIZED DRUG - OTHER] PO SCH (18:30)
[2017-02-04] MEDS: LEVOTHYROXINE PO SCH (06:18)
--- NOTE | 2017-02-04 08:16 | PN ---
Progress Note for EMILY SHEETS Date: 02/03/2017 Room #: SUBJECTIVE: This is an 87-year-old seen today on swing bed. The patient continues to have difficulty with getting up out of a chair. We had ordered PT, but in the end the patient decided that she did not want to pursue it and physical therapy did not feel that it would help much. She does have arthritis that is limiting her mobility. She has leg and knee pain, but does not take any pain pills for it. Otherwise, she has been feeling well. OBJECTIVE: Vital Signs: Her temperature is 97.3, pulse 78, blood pressure 136/78, respiratory rate 20, O2 of 96% on room air. General: She is in no acute distress. Heart: Regular rate and rhythm with murmur today. Respiratory: Lungs sounds are clear to auscultation bilaterally without crackles or wheezes. Extremities: Warm and dry. No edema. The knees show some valgus deformity, but no significant crepitus appreciated. ASSESSMENT AND PLAN: 1. Impaired mobility due to osteoarthritis, severe in her knees. At this point, we will just continue to monitor and help her with cares that is why she is on swing bed for help with ADLs. 2. Chronic vulvar and vaginal irritation stable. 3. Essential hypertension, controlled. 4. Paroxysmal atrial fibrillation. She is on Pradaxa for stroke prevention. 5. History of mild anemia. She has had no further rectal bleeding. 6. Hypothyroidism, on treatment. The plan at this point, the patient will continue on swing bed cares. Her last CBC on 12/12/2016 was normal. No lab work due until May unless she develops other problems. MKA: 02/03/2017 12:57:44 MODL: 02/03/2017 13:32:59 /[id number]
[2017-02-04] MEDS: PRADAXA 150 MG PO SCH ×2 (09:52→18:08)
[2017-02-04] MEDS: Acetaminophen 500 MG Tab PO SCH (09:52)
[2017-02-04] MEDS: UBIDECARENONE 200 MG PO SCH (09:53)
[2017-02-04] MEDS: CHOLECALCIFEROL 2000 UNIT PO SCH (09:53)
[2017-02-04] MEDS: OMEGA FISH OIL PO SCH (18:09)
[2017-02-04] MEDS: MAGNESIUM OXIDE PO SCH (18:09)
[2017-02-04] MEDS: ZINC GLUCONATE PO SCH (18:09)
[2017-02-04] MEDS: CALCIUM CARBONATE PO SCH (18:09)
[2017-02-04] MEDS: [UNRECOGNIZED DRUG - OTHER] PO SCH (18:10)
[2017-02-05] MEDS: LEVOTHYROXINE PO SCH (06:00)
[2017-02-05] MEDS: PRADAXA 150 MG PO SCH ×2 (10:27→18:00)
[2017-02-05] MEDS: Acetaminophen 500 MG Tab PO SCH (10:28)
[2017-02-05] MEDS: CHOLECALCIFEROL 2000 UNIT PO SCH (10:28)
[2017-02-05] MEDS: UBIDECARENONE 200 MG PO SCH (10:28)
[2017-02-05] MEDS: LIDOCAINE 2% TOP PRN (10:30)
[2017-02-05] MEDS: [UNRECOGNIZED DRUG - OTHER] TOP PRN (10:30)
[2017-02-05] MEDS: CALCIUM CARBONATE PO SCH (18:00)
[2017-02-05] MEDS: ZINC GLUCONATE PO SCH (18:00)
[2017-02-05] MEDS: [UNRECOGNIZED DRUG - OTHER] PO SCH (18:00)
[2017-02-05] MEDS: MAGNESIUM OXIDE PO SCH (18:00)
[2017-02-05] MEDS: OMEGA FISH OIL PO SCH (18:00)
[2017-02-06] MEDS: LEVOTHYROXINE PO SCH (06:43)
[2017-02-06] MEDS: PRADAXA 150 MG PO SCH ×2 (09:58→18:24)
[2017-02-06] MEDS: CHOLECALCIFEROL 2000 UNIT PO SCH (09:59)
[2017-02-06] MEDS: UBIDECARENONE 200 MG PO SCH (10:00)
[2017-02-06] MEDS: Acetaminophen 500 MG Tab PO SCH (10:00)
[2017-02-06] MEDS: CALCIUM CARBONATE PO SCH (18:25)
[2017-02-06] MEDS: ZINC GLUCONATE PO SCH (18:25)
[2017-02-06] MEDS: MAGNESIUM OXIDE PO SCH (18:25)
[2017-02-06] MEDS: [UNRECOGNIZED DRUG - OTHER] PO SCH (18:25)
[2017-02-06] MEDS: OMEGA FISH OIL PO SCH (18:25)
[2017-02-07] MEDS: Acetaminophen 500 MG Tab PO SCH ×2 (10:00→10:39)
[2017-02-07] MEDS: [UNRECOGNIZED DRUG - OTHER] TOP PRN (10:37)
[2017-02-07] MEDS: UBIDECARENONE 200 MG PO SCH (10:37)
[2017-02-07] MEDS: LIDOCAINE 2% TOP PRN (10:37)
[2017-02-07] MEDS: PRADAXA 150 MG PO SCH ×2 (10:38→18:47)
[2017-02-07] MEDS: CHOLECALCIFEROL 2000 UNIT PO SCH (10:38)
[2017-02-07] MEDS: ZINC GLUCONATE PO SCH (18:46)
[2017-02-07] MEDS: CALCIUM CARBONATE PO SCH (18:46)
[2017-02-07] MEDS: MAGNESIUM OXIDE PO SCH (18:46)
[2017-02-07] MEDS: OMEGA FISH OIL PO SCH (18:47)
[2017-02-07] MEDS: [UNRECOGNIZED DRUG - OTHER] PO SCH (18:47)
[2017-02-08] MEDS: LEVOTHYROXINE PO SCH (06:01)
[2017-02-08] MEDS: PRADAXA 150 MG PO SCH ×2 (10:19→18:58)
[2017-02-08] MEDS: UBIDECARENONE 200 MG PO SCH (10:19)
[2017-02-08] MEDS: CHOLECALCIFEROL 2000 UNIT PO SCH (10:19)
[2017-02-08] MEDS: Acetaminophen 500 MG Tab PO SCH (10:20)
[2017-02-08] MEDS: LIDOCAINE 2% TOP PRN (10:22)
[2017-02-08] MEDS: [UNRECOGNIZED DRUG - OTHER] TOP PRN (10:22)
[2017-02-08] MEDS: [UNRECOGNIZED DRUG - OTHER] PO SCH (18:58)
[2017-02-08] MEDS: CALCIUM CARBONATE PO SCH (18:58)
[2017-02-08] MEDS: MAGNESIUM OXIDE PO SCH (18:58)
[2017-02-08] MEDS: OMEGA FISH OIL PO SCH (18:58)
[2017-02-08] MEDS: ZINC GLUCONATE PO SCH (18:58)
[2017-02-09] MEDS: LEVOTHYROXINE PO SCH (06:01)
[2017-02-09] MEDS: UBIDECARENONE 200 MG PO SCH (09:43)
[2017-02-09] MEDS: PRADAXA 150 MG PO SCH ×2 (09:43→18:23)
[2017-02-09] MEDS: CHOLECALCIFEROL 2000 UNIT PO SCH (09:43)
[2017-02-09] MEDS: Acetaminophen 500 MG Tab PO SCH (09:44)
[2017-02-09] MEDS: [UNRECOGNIZED DRUG - OTHER] PO SCH (18:23)
[2017-02-09] MEDS: CALCIUM CARBONATE PO SCH (18:23)
[2017-02-09] MEDS: ZINC GLUCONATE PO SCH (18:23)
[2017-02-09] MEDS: OMEGA FISH OIL PO SCH (18:23)
[2017-02-09] MEDS: MAGNESIUM OXIDE PO SCH (18:23)
[2017-02-10] MEDS: LEVOTHYROXINE PO SCH (06:12)
[2017-02-10] MEDS: [UNRECOGNIZED DRUG - OTHER] TOP PRN (10:01)
[2017-02-10] MEDS: LIDOCAINE 2% TOP PRN (10:01)
[2017-02-10] MEDS: PRADAXA 150 MG PO SCH ×2 (10:02→18:01)
[2017-02-10] MEDS: UBIDECARENONE 200 MG PO SCH (10:03)
[2017-02-10] MEDS: CHOLECALCIFEROL 2000 UNIT PO SCH (10:03)
[2017-02-10] MEDS: Acetaminophen 500 MG Tab PO SCH (10:04)
[2017-02-10] MEDS: CALCIUM CARBONATE PO SCH (18:01)
[2017-02-10] MEDS: ZINC GLUCONATE PO SCH (18:01)
[2017-02-10] MEDS: MAGNESIUM OXIDE PO SCH (18:01)
[2017-02-10] MEDS: [UNRECOGNIZED DRUG - OTHER] PO SCH (18:02)
[2017-02-10] MEDS: OMEGA FISH OIL PO SCH (18:02)
[2017-02-11] MEDS: LEVOTHYROXINE PO SCH (06:06)
[2017-02-11] MEDS: PRADAXA 150 MG PO SCH ×2 (09:32→18:00)
[2017-02-11] MEDS: UBIDECARENONE 200 MG PO SCH (09:32)
[2017-02-11] MEDS: Acetaminophen 500 MG Tab PO SCH (09:33)
[2017-02-11] MEDS: CHOLECALCIFEROL 2000 UNIT PO SCH (09:33)
[2017-02-11] MEDS: DEXTRAN EYEBOTH PRN (09:36)
[2017-02-11] MEDS: [UNRECOGNIZED DRUG - OTHER] TOP PRN (09:36)
[2017-02-11] MEDS: LIDOCAINE 2% TOP PRN (09:36)
[2017-02-11] MEDS: HYPROMELLOSE EYEBOTH PRN (09:36)
[2017-02-11] MEDS: CALCIUM CARBONATE PO SCH (18:00)
[2017-02-11] MEDS: ZINC GLUCONATE PO SCH (18:00)
[2017-02-11] MEDS: [UNRECOGNIZED DRUG - OTHER] PO SCH (18:00)
[2017-02-11] MEDS: OMEGA FISH OIL PO SCH (18:00)
[2017-02-11] MEDS: MAGNESIUM OXIDE PO SCH (18:00)
[2017-02-12] MEDS: LEVOTHYROXINE PO SCH (06:00)
[2017-02-12] MEDS: Acetaminophen 500 MG Tab PO SCH (10:32)
[2017-02-12] MEDS: PRADAXA 150 MG PO SCH ×2 (10:33→18:13)
[2017-02-12] MEDS: CHOLECALCIFEROL 2000 UNIT PO SCH (10:34)
[2017-02-12] MEDS: UBIDECARENONE 200 MG PO SCH (10:34)
[2017-02-12] MEDS: LIDOCAINE 2% TOP PRN (10:35)
[2017-02-12] MEDS: [UNRECOGNIZED DRUG - OTHER] TOP PRN (10:35)
[2017-02-12] MEDS: OMEGA FISH OIL PO SCH (18:13)
[2017-02-12] MEDS: MAGNESIUM OXIDE PO SCH (18:13)
[2017-02-12] MEDS: ZINC GLUCONATE PO SCH (18:13)
[2017-02-12] MEDS: CALCIUM CARBONATE PO SCH (18:13)
[2017-02-12] MEDS: [UNRECOGNIZED DRUG - OTHER] PO SCH (18:13)
[2017-02-13] MEDS: LEVOTHYROXINE PO SCH (06:17)
[2017-02-13] MEDS: CHOLECALCIFEROL 2000 UNIT PO SCH (09:56)
[2017-02-13] MEDS: UBIDECARENONE 200 MG PO SCH (09:56)
[2017-02-13] MEDS: PRADAXA 150 MG PO SCH ×2 (09:56→18:27)
[2017-02-13] MEDS: Acetaminophen 500 MG Tab PO SCH (09:57)
[2017-02-13] MEDS: CALCIUM CARBONATE PO SCH (18:27)
[2017-02-13] MEDS: MAGNESIUM OXIDE PO SCH (18:27)
[2017-02-13] MEDS: ZINC GLUCONATE PO SCH (18:27)
[2017-02-13] MEDS: OMEGA FISH OIL PO SCH (18:27)
[2017-02-13] MEDS: [UNRECOGNIZED DRUG - OTHER] PO SCH (18:27)
[2017-02-14] MEDS: Acetaminophen 500 MG Tab PO SCH (10:27)
[2017-02-14] MEDS: PRADAXA 150 MG PO SCH ×2 (10:27→20:56)
[2017-02-14] MEDS: UBIDECARENONE 200 MG PO SCH (10:28)
[2017-02-14] MEDS: CHOLECALCIFEROL 2000 UNIT PO SCH (10:28)
[2017-02-14] MEDS: DEXTRAN EYEBOTH PRN (10:29)
[2017-02-14] MEDS: [UNRECOGNIZED DRUG - OTHER] TOP PRN (10:29)
[2017-02-14] MEDS: HYPROMELLOSE EYEBOTH PRN (10:29)
[2017-02-14] MEDS: LIDOCAINE 2% TOP PRN (10:29)
[2017-02-14] MEDS: MAGNESIUM OXIDE PO SCH (20:56)
[2017-02-14] MEDS: CALCIUM CARBONATE PO SCH (20:56)
[2017-02-14] MEDS: ZINC GLUCONATE PO SCH (20:56)
[2017-02-14] MEDS: [UNRECOGNIZED DRUG - OTHER] PO SCH (20:56)
[2017-02-14] MEDS: OMEGA FISH OIL PO SCH (20:57)
[2017-02-15] MEDS: LEVOTHYROXINE PO SCH (06:11)
[2017-02-15] MEDS: UBIDECARENONE 200 MG PO SCH (10:37)
[2017-02-15] MEDS: CHOLECALCIFEROL 2000 UNIT PO SCH (10:37)
[2017-02-15] MEDS: Acetaminophen 500 MG Tab PO SCH (10:37)
[2017-02-15] MEDS: PRADAXA 150 MG PO SCH ×2 (10:38→18:35)
[2017-02-15] MEDS: ZINC GLUCONATE PO SCH (18:33)
[2017-02-15] MEDS: MAGNESIUM OXIDE PO SCH (18:33)
[2017-02-15] MEDS: [UNRECOGNIZED DRUG - OTHER] PO SCH (18:33)
[2017-02-15] MEDS: CALCIUM CARBONATE PO SCH (18:33)
[2017-02-15] MEDS: OMEGA FISH OIL PO SCH (18:33)
[2017-02-15] MEDS: [UNRECOGNIZED DRUG - OTHER] TOP PRN (18:35)
[2017-02-15] MEDS: LIDOCAINE 2% TOP PRN (18:35)
[2017-02-16] MEDS: LEVOTHYROXINE PO SCH (06:13)
[2017-02-16] MEDS: PRADAXA 150 MG PO SCH ×2 (09:32→18:05)
[2017-02-16] MEDS: Acetaminophen 500 MG Tab PO SCH (09:33)
[2017-02-16] MEDS: UBIDECARENONE 200 MG PO SCH (09:33)
[2017-02-16] MEDS: CHOLECALCIFEROL 2000 UNIT PO SCH (09:33)
[2017-02-16] MEDS: LIDOCAINE 2% TOP PRN (09:35)
[2017-02-16] MEDS: [UNRECOGNIZED DRUG - OTHER] TOP PRN (09:35)
[2017-02-16] MEDS: OMEGA FISH OIL PO SCH (18:04)
[2017-02-16] MEDS: CALCIUM CARBONATE PO SCH (18:04)
[2017-02-16] MEDS: ZINC GLUCONATE PO SCH (18:04)
[2017-02-16] MEDS: [UNRECOGNIZED DRUG - OTHER] PO SCH (18:04)
[2017-02-16] MEDS: MAGNESIUM OXIDE PO SCH (18:04)
[2017-02-17] MEDS: LEVOTHYROXINE PO SCH (06:41)
[2017-02-17] MEDS: UBIDECARENONE 200 MG PO SCH (09:39)
[2017-02-17] MEDS: PRADAXA 150 MG PO SCH ×2 (09:40→18:09)
[2017-02-17] MEDS: CHOLECALCIFEROL 2000 UNIT PO SCH (09:40)
[2017-02-17] MEDS: Acetaminophen 500 MG Tab PO SCH (09:40)
[2017-02-17] MEDS: OMEGA FISH OIL PO SCH (18:09)
[2017-02-17] MEDS: [UNRECOGNIZED DRUG - OTHER] PO SCH (18:09)
[2017-02-17] MEDS: ZINC GLUCONATE PO SCH (18:10)
[2017-02-17] MEDS: CALCIUM CARBONATE PO SCH (18:10)
[2017-02-17] MEDS: MAGNESIUM OXIDE PO SCH (18:10)
[2017-02-18] MEDS: LEVOTHYROXINE PO SCH (06:23)
[2017-02-18] MEDS: CHOLECALCIFEROL 2000 UNIT PO SCH (09:28)
[2017-02-18] MEDS: UBIDECARENONE 200 MG PO SCH (09:28)
[2017-02-18] MEDS: PRADAXA 150 MG PO SCH ×2 (09:29→19:31)
[2017-02-18] MEDS: Acetaminophen 500 MG Tab PO SCH (09:30)
[2017-02-18] MEDS: OMEGA FISH OIL PO SCH (19:30)
[2017-02-18] MEDS: ZINC GLUCONATE PO SCH (19:31)
[2017-02-18] MEDS: MAGNESIUM OXIDE PO SCH (19:31)
[2017-02-18] MEDS: [UNRECOGNIZED DRUG - OTHER] PO SCH (19:31)
[2017-02-18] MEDS: CALCIUM CARBONATE PO SCH (19:31)
[2017-02-19] MEDS: LEVOTHYROXINE PO SCH (06:33)
[2017-02-19] MEDS: PRADAXA 150 MG PO SCH ×2 (10:16→18:15)
[2017-02-19] MEDS: CHOLECALCIFEROL 2000 UNIT PO SCH (10:17)
[2017-02-19] MEDS: UBIDECARENONE 200 MG PO SCH (10:17)
[2017-02-19] MEDS: Acetaminophen 500 MG Tab PO SCH (10:17)
[2017-02-19] MEDS: [UNRECOGNIZED DRUG - OTHER] TOP PRN (10:18)
[2017-02-19] MEDS: LIDOCAINE 2% TOP PRN (10:18)
[2017-02-19] MEDS: CALCIUM CARBONATE PO SCH (18:16)
[2017-02-19] MEDS: OMEGA FISH OIL PO SCH (18:16)
[2017-02-19] MEDS: MAGNESIUM OXIDE PO SCH (18:16)
[2017-02-19] MEDS: ZINC GLUCONATE PO SCH (18:16)
[2017-02-19] MEDS: [UNRECOGNIZED DRUG - OTHER] PO SCH (18:17)
[2017-02-20] MEDS: LEVOTHYROXINE PO SCH (06:12)
[2017-02-20] MEDS: CHOLECALCIFEROL 2000 UNIT PO SCH (10:27)
[2017-02-20] MEDS: Acetaminophen 500 MG Tab PO SCH (10:28)
[2017-02-20] MEDS: PRADAXA 150 MG PO SCH ×2 (10:28→18:05)
[2017-02-20] MEDS: UBIDECARENONE 200 MG PO SCH (10:28)
[2017-02-20] MEDS: [UNRECOGNIZED DRUG - OTHER] TOP PRN (10:32)
[2017-02-20] MEDS: LIDOCAINE 2% TOP PRN (10:32)
[2017-02-20] MEDS: HYPROMELLOSE EYEBOTH PRN (10:34)
[2017-02-20] MEDS: DEXTRAN EYEBOTH PRN (10:34)
[2017-02-20] MEDS: ZINC GLUCONATE PO SCH (18:05)
[2017-02-20] MEDS: OMEGA FISH OIL PO SCH (18:05)
[2017-02-20] MEDS: CALCIUM CARBONATE PO SCH (18:05)
[2017-02-20] MEDS: [UNRECOGNIZED DRUG - OTHER] PO SCH (18:05)
[2017-02-20] MEDS: MAGNESIUM OXIDE PO SCH (18:05)
[2017-02-21] MEDS: CHOLECALCIFEROL 2000 UNIT PO SCH (09:59)
[2017-02-21] MEDS: Acetaminophen 500 MG Tab PO SCH (09:59)
[2017-02-21] MEDS: PRADAXA 150 MG PO SCH ×2 (09:59→18:39)
[2017-02-21] MEDS: UBIDECARENONE 200 MG PO SCH (10:00)
[2017-02-21] MEDS: DEXTRAN EYEBOTH PRN (10:03)
[2017-02-21] MEDS: HYPROMELLOSE EYEBOTH PRN (10:03)
[2017-02-21] MEDS: [UNRECOGNIZED DRUG - OTHER] PO SCH (18:38)
[2017-02-21] MEDS: Acetaminophen 500 MG Tab PO PRN (18:39)
[2017-02-21] MEDS: CALCIUM CARBONATE PO SCH (18:39)
[2017-02-21] MEDS: OMEGA FISH OIL PO SCH (18:39)
[2017-02-21] MEDS: ZINC GLUCONATE PO SCH (18:39)
[2017-02-21] MEDS: MAGNESIUM OXIDE PO SCH (18:39)
[2017-02-22] MEDS: LEVOTHYROXINE PO SCH (06:04)
[2017-02-22] MEDS: UBIDECARENONE 200 MG PO SCH (10:16)
[2017-02-22] MEDS: PRADAXA 150 MG PO SCH ×2 (10:17→18:06)
[2017-02-22] MEDS: CHOLECALCIFEROL 2000 UNIT PO SCH (10:17)
[2017-02-22] MEDS: Acetaminophen 500 MG Tab PO SCH (10:17)
[2017-02-22] MEDS: HYPROMELLOSE EYEBOTH PRN (10:18)
[2017-02-22] MEDS: DEXTRAN EYEBOTH PRN (10:18)
[2017-02-22] MEDS: [UNRECOGNIZED DRUG - OTHER] TOP PRN (10:18)
[2017-02-22] MEDS: LIDOCAINE 2% TOP PRN (10:18)
[2017-02-22] MEDS: MAGNESIUM OXIDE PO SCH (18:06)
[2017-02-22] MEDS: ZINC GLUCONATE PO SCH (18:06)
[2017-02-22] MEDS: [UNRECOGNIZED DRUG - OTHER] PO SCH (18:06)
[2017-02-22] MEDS: CALCIUM CARBONATE PO SCH (18:06)
[2017-02-22] MEDS: OMEGA FISH OIL PO SCH (18:06)
[2017-02-23] MEDS: LEVOTHYROXINE PO SCH (06:21)
[2017-02-23] MEDS: PRADAXA 150 MG PO SCH ×2 (09:39→18:37)
[2017-02-23] MEDS: UBIDECARENONE 200 MG PO SCH (09:40)
[2017-02-23] MEDS: CHOLECALCIFEROL 2000 UNIT PO SCH (09:40)
[2017-02-23] MEDS: Acetaminophen 500 MG Tab PO SCH (09:40)
[2017-02-23] MEDS: CALCIUM CARBONATE PO SCH (18:36)
[2017-02-23] MEDS: MAGNESIUM OXIDE PO SCH (18:36)
[2017-02-23] MEDS: [UNRECOGNIZED DRUG - OTHER] PO SCH (18:36)
[2017-02-23] MEDS: OMEGA FISH OIL PO SCH (18:36)
[2017-02-23] MEDS: ZINC GLUCONATE PO SCH (18:36)
[2017-02-24] MEDS: LEVOTHYROXINE PO SCH (06:06)
[2017-02-24] MEDS: Acetaminophen 500 MG Tab PO SCH (09:29)
[2017-02-24] MEDS: PRADAXA 150 MG PO SCH ×2 (09:29→18:28)
[2017-02-24] MEDS: UBIDECARENONE 200 MG PO SCH (09:30)
[2017-02-24] MEDS: CHOLECALCIFEROL 2000 UNIT PO SCH (09:30)
[2017-02-24] MEDS: [UNRECOGNIZED DRUG - OTHER] TOP PRN (09:33)
[2017-02-24] MEDS: LIDOCAINE 2% TOP PRN (09:33)
[2017-02-24] MEDS: MAGNESIUM OXIDE PO SCH (18:27)
[2017-02-24] MEDS: CALCIUM CARBONATE PO SCH (18:27)
[2017-02-24] MEDS: OMEGA FISH OIL PO SCH (18:27)
[2017-02-24] MEDS: [UNRECOGNIZED DRUG - OTHER] PO SCH (18:27)
[2017-02-24] MEDS: ZINC GLUCONATE PO SCH (18:27)
[2017-02-25] MEDS: LEVOTHYROXINE PO SCH (06:19)
[2017-02-25] MEDS: UBIDECARENONE 200 MG PO SCH (09:22)
[2017-02-25] MEDS: Acetaminophen 500 MG Tab PO SCH (09:22)
[2017-02-25] MEDS: CHOLECALCIFEROL 2000 UNIT PO SCH (09:22)
[2017-02-25] MEDS: PRADAXA 150 MG PO SCH ×2 (09:23→19:01)
[2017-02-25] MEDS: OMEGA FISH OIL PO SCH (19:01)
[2017-02-25] MEDS: ZINC GLUCONATE PO SCH (19:01)
[2017-02-25] MEDS: CALCIUM CARBONATE PO SCH (19:01)
[2017-02-25] MEDS: MAGNESIUM OXIDE PO SCH (19:01)
[2017-02-25] MEDS: [UNRECOGNIZED DRUG - OTHER] PO SCH (19:01)
[2017-02-26] MEDS: LEVOTHYROXINE PO SCH (06:35)
[2017-02-26] MEDS: CHOLECALCIFEROL 2000 UNIT PO SCH (10:01)
[2017-02-26] MEDS: UBIDECARENONE 200 MG PO SCH (10:01)
[2017-02-26] MEDS: PRADAXA 150 MG PO SCH ×2 (10:01→17:59)
[2017-02-26] MEDS: Acetaminophen 500 MG Tab PO SCH (10:02)
[2017-02-26] MEDS: [UNRECOGNIZED DRUG - OTHER] TOP PRN (10:04)
[2017-02-26] MEDS: LIDOCAINE 2% TOP PRN (10:04)
[2017-02-26] MEDS: CALCIUM CARBONATE PO SCH (17:59)
[2017-02-26] MEDS: OMEGA FISH OIL PO SCH (17:59)
[2017-02-26] MEDS: MAGNESIUM OXIDE PO SCH (17:59)
[2017-02-26] MEDS: ZINC GLUCONATE PO SCH (17:59)
[2017-02-26] MEDS: [UNRECOGNIZED DRUG - OTHER] PO SCH (17:59)
[2017-02-27] MEDS: LEVOTHYROXINE PO SCH (06:34)
[2017-02-27] MEDS: Acetaminophen 500 MG Tab PO SCH (09:26)
[2017-02-27] MEDS: PRADAXA 150 MG PO SCH ×2 (09:27→18:33)
[2017-02-27] MEDS: UBIDECARENONE 200 MG PO SCH (09:29)
[2017-02-27] MEDS: CHOLECALCIFEROL 2000 UNIT PO SCH (09:30)
[2017-02-27] MEDS: LIDOCAINE 2% TOP PRN (09:32)
[2017-02-27] MEDS: [UNRECOGNIZED DRUG - OTHER] TOP PRN (09:32)
[2017-02-27] MEDS: CALCIUM CARBONATE PO SCH (18:33)
[2017-02-27] MEDS: TURMERIC 500 MG PO SCH (18:33)
[2017-02-27] MEDS: MAGNESIUM OXIDE PO SCH (18:33)
[2017-02-27] MEDS: ZINC GLUCONATE PO SCH (18:33)
[2017-02-27] MEDS: OMEGA FISH OIL PO SCH (18:33)
[2017-02-27] MEDS: [UNRECOGNIZED DRUG - OTHER] PO SCH (18:34)
[2017-02-28] MEDS: CHOLECALCIFEROL 2000 UNIT PO SCH (09:49)
[2017-02-28] MEDS: UBIDECARENONE 200 MG PO SCH (09:49)
[2017-02-28] MEDS: PRADAXA 150 MG PO SCH ×2 (09:49→18:02)
[2017-02-28] MEDS: Acetaminophen 500 MG Tab PO SCH (09:49)
[2017-02-28] MEDS: [UNRECOGNIZED DRUG - OTHER] TOP PRN (09:50)
[2017-02-28] MEDS: LIDOCAINE 2% TOP PRN (09:50)
[2017-02-28] MEDS: ZINC GLUCONATE PO SCH (18:03)
[2017-02-28] MEDS: TURMERIC 500 MG PO SCH (18:03)
[2017-02-28] MEDS: CALCIUM CARBONATE PO SCH (18:03)
[2017-02-28] MEDS: [UNRECOGNIZED DRUG - OTHER] PO SCH (18:03)
[2017-02-28] MEDS: OMEGA FISH OIL PO SCH (18:03)
[2017-02-28] MEDS: MAGNESIUM OXIDE PO SCH (18:03)
[2017-03-01] MEDS: LEVOTHYROXINE PO SCH (06:02)
[2017-03-01] MEDS: PRADAXA 150 MG PO SCH ×2 (10:28→18:05)
[2017-03-01] MEDS: UBIDECARENONE 200 MG PO SCH (10:28)
[2017-03-01] MEDS: CHOLECALCIFEROL 2000 UNIT PO SCH (10:28)
[2017-03-01] MEDS: Acetaminophen 500 MG Tab PO SCH (10:29)
[2017-03-01] MEDS: MAGNESIUM OXIDE PO SCH (18:05)
[2017-03-01] MEDS: TURMERIC 500 MG PO SCH (18:05)
[2017-03-01] MEDS: OMEGA FISH OIL PO SCH (18:05)
[2017-03-01] MEDS: CALCIUM CARBONATE PO SCH (18:05)
[2017-03-01] MEDS: ZINC GLUCONATE PO SCH (18:05)
[2017-03-01] MEDS: [UNRECOGNIZED DRUG - OTHER] PO SCH (18:06)
[2017-03-02] MEDS: LEVOTHYROXINE PO SCH (06:01)
[2017-03-02] MEDS: UBIDECARENONE 200 MG PO SCH (09:48)
[2017-03-02] MEDS: CHOLECALCIFEROL 2000 UNIT PO SCH (09:48)
[2017-03-02] MEDS: Acetaminophen 500 MG Tab PO SCH (09:49)
[2017-03-02] MEDS: PRADAXA 150 MG PO SCH ×2 (09:49→18:04)
[2017-03-02] MEDS: LIDOCAINE 2% TOP PRN (09:50)
[2017-03-02] MEDS: [UNRECOGNIZED DRUG - OTHER] TOP PRN (09:50)
[2017-03-02] MEDS: TURMERIC 500 MG PO SCH (18:04)
[2017-03-02] MEDS: CALCIUM CARBONATE PO SCH (18:05)
[2017-03-02] MEDS: OMEGA FISH OIL PO SCH (18:05)
[2017-03-02] MEDS: ZINC GLUCONATE PO SCH (18:05)
[2017-03-02] MEDS: MAGNESIUM OXIDE PO SCH (18:05)
[2017-03-02] MEDS: [UNRECOGNIZED DRUG - OTHER] PO SCH (18:06)
[2017-03-03] MEDS: LEVOTHYROXINE PO SCH (06:07)
[2017-03-03] MEDS: PRADAXA 150 MG PO SCH ×2 (09:42→18:09)
[2017-03-03] MEDS: Acetaminophen 500 MG Tab PO SCH (09:42)
[2017-03-03] MEDS: UBIDECARENONE 200 MG PO SCH (09:42)
[2017-03-03] MEDS: CHOLECALCIFEROL 2000 UNIT PO SCH (09:42)
[2017-03-03] MEDS: LIDOCAINE 2% TOP PRN (09:44)
[2017-03-03] MEDS: [UNRECOGNIZED DRUG - OTHER] TOP PRN (09:44)
[2017-03-03] MEDS: ZINC GLUCONATE PO SCH (18:08)
[2017-03-03] MEDS: OMEGA FISH OIL PO SCH (18:08)
[2017-03-03] MEDS: [UNRECOGNIZED DRUG - OTHER] PO SCH (18:08)
[2017-03-03] MEDS: CALCIUM CARBONATE PO SCH (18:08)
[2017-03-03] MEDS: MAGNESIUM OXIDE PO SCH (18:08)
[2017-03-03] MEDS: TURMERIC 500 MG PO SCH (18:08)
[2017-03-04] MEDS: LEVOTHYROXINE PO SCH (06:04)
[2017-03-04] MEDS: PRADAXA 150 MG PO SCH ×2 (09:30→18:08)
[2017-03-04] MEDS: CHOLECALCIFEROL 2000 UNIT PO SCH (09:31)
[2017-03-04] MEDS: UBIDECARENONE 200 MG PO SCH (09:31)
[2017-03-04] MEDS: Acetaminophen 500 MG Tab PO SCH (09:31)
[2017-03-04] MEDS: MAGNESIUM OXIDE PO SCH (18:08)
[2017-03-04] MEDS: TURMERIC 500 MG PO SCH (18:08)
[2017-03-04] MEDS: [UNRECOGNIZED DRUG - OTHER] PO SCH (18:08)
[2017-03-04] MEDS: OMEGA FISH OIL PO SCH (18:08)
[2017-03-04] MEDS: ZINC GLUCONATE PO SCH (18:08)
[2017-03-04] MEDS: CALCIUM CARBONATE PO SCH (18:08)
[2017-03-05] MEDS: LEVOTHYROXINE PO SCH (06:22)
[2017-03-05] MEDS: Acetaminophen 500 MG Tab PO SCH (09:46)
[2017-03-05] MEDS: PRADAXA 150 MG PO SCH ×2 (09:46→18:29)
[2017-03-05] MEDS: CHOLECALCIFEROL 2000 UNIT PO SCH (09:46)
[2017-03-05] MEDS: UBIDECARENONE 200 MG PO SCH (09:46)
[2017-03-05] MEDS: TURMERIC 500 MG PO SCH (18:29)
[2017-03-05] MEDS: ZINC GLUCONATE PO SCH (18:29)
[2017-03-05] MEDS: CALCIUM CARBONATE PO SCH (18:29)
[2017-03-05] MEDS: MAGNESIUM OXIDE PO SCH (18:29)
[2017-03-05] MEDS: [UNRECOGNIZED DRUG - OTHER] PO SCH (18:30)
[2017-03-05] MEDS: OMEGA FISH OIL PO SCH (18:30)
[2017-03-06] MEDS: LEVOTHYROXINE PO SCH (06:18)
[2017-03-06] MEDS: Acetaminophen 500 MG Tab PO SCH (09:41)
[2017-03-06] MEDS: PRADAXA 150 MG PO SCH ×2 (09:41→18:40)
[2017-03-06] MEDS: UBIDECARENONE 200 MG PO SCH (09:43)
[2017-03-06] MEDS: CHOLECALCIFEROL 2000 UNIT PO SCH (09:43)
[2017-03-06] MEDS: ZINC GLUCONATE PO SCH (18:39)
[2017-03-06] MEDS: OMEGA FISH OIL PO SCH (18:39)
[2017-03-06] MEDS: CALCIUM CARBONATE PO SCH (18:39)
[2017-03-06] MEDS: TURMERIC 500 MG PO SCH (18:39)
[2017-03-06] MEDS: [UNRECOGNIZED DRUG - OTHER] PO SCH (18:39)
[2017-03-06] MEDS: MAGNESIUM OXIDE PO SCH (18:39)
[2017-03-07] MEDS: Acetaminophen 500 MG Tab PO SCH (09:27)
[2017-03-07] MEDS: CHOLECALCIFEROL 2000 UNIT PO SCH (09:28)
[2017-03-07] MEDS: PRADAXA 150 MG PO SCH ×2 (09:28→18:23)
[2017-03-07] MEDS: UBIDECARENONE 200 MG PO SCH (09:28)
[2017-03-07] MEDS: [UNRECOGNIZED DRUG - OTHER] TOP PRN (09:29)
[2017-03-07] MEDS: LIDOCAINE 2% TOP PRN (09:29)
[2017-03-07] MEDS: ZINC GLUCONATE PO SCH (18:23)
[2017-03-07] MEDS: TURMERIC 500 MG PO SCH (18:23)
[2017-03-07] MEDS: [UNRECOGNIZED DRUG - OTHER] PO SCH (18:23)
[2017-03-07] MEDS: CALCIUM CARBONATE PO SCH (18:23)
[2017-03-07] MEDS: MAGNESIUM OXIDE PO SCH (18:23)
[2017-03-07] MEDS: OMEGA FISH OIL PO SCH (18:24)
[2017-03-08] MEDS: LEVOTHYROXINE PO SCH (06:05)
[2017-03-08] MEDS: CHOLECALCIFEROL 2000 UNIT PO SCH (09:30)
[2017-03-08] MEDS: UBIDECARENONE 200 MG PO SCH (09:30)
[2017-03-08] MEDS: Acetaminophen 500 MG Tab PO SCH (09:31)
[2017-03-08] MEDS: PRADAXA 150 MG PO SCH ×2 (09:31→18:03)
[2017-03-08] MEDS: [UNRECOGNIZED DRUG - OTHER] PO SCH (18:02)
[2017-03-08] MEDS: MAGNESIUM OXIDE PO SCH (18:02)
[2017-03-08] MEDS: TURMERIC 500 MG PO SCH (18:02)
[2017-03-08] MEDS: ZINC GLUCONATE PO SCH (18:02)
[2017-03-08] MEDS: CALCIUM CARBONATE PO SCH (18:02)
[2017-03-08] MEDS: OMEGA FISH OIL PO SCH (18:02)
[2017-03-09] MEDS: LEVOTHYROXINE PO SCH (06:03)
[2017-03-09] MEDS: Acetaminophen 500 MG Tab PO SCH (09:43)
[2017-03-09] MEDS: PRADAXA 150 MG PO SCH ×2 (09:44→18:24)
[2017-03-09] MEDS: CHOLECALCIFEROL 2000 UNIT PO SCH (09:44)
[2017-03-09] MEDS: UBIDECARENONE 200 MG PO SCH (09:45)
[2017-03-09] MEDS: TURMERIC 500 MG PO SCH (18:24)
[2017-03-09] MEDS: [UNRECOGNIZED DRUG - OTHER] PO SCH (18:25)
[2017-03-09] MEDS: ZINC GLUCONATE PO SCH (18:25)
[2017-03-09] MEDS: OMEGA FISH OIL PO SCH (18:25)
[2017-03-09] MEDS: CALCIUM CARBONATE PO SCH (18:25)
[2017-03-09] MEDS: MAGNESIUM OXIDE PO SCH (18:25)
[2017-03-10] MEDS: LEVOTHYROXINE PO SCH (06:12)
[2017-03-10] MEDS: PRADAXA 150 MG PO SCH ×2 (10:15→19:49)
[2017-03-10] MEDS: UBIDECARENONE 200 MG PO SCH (10:15)
[2017-03-10] MEDS: CHOLECALCIFEROL 2000 UNIT PO SCH (10:16)
[2017-03-10] MEDS: Acetaminophen 500 MG Tab PO SCH (10:16)
[2017-03-10] MEDS: HYPROMELLOSE EYEBOTH PRN (10:17)
[2017-03-10] MEDS: DEXTRAN EYEBOTH PRN (10:17)
[2017-03-10] MEDS: OMEGA FISH OIL PO SCH (19:48)
[2017-03-10] MEDS: MAGNESIUM OXIDE PO SCH (19:48)
[2017-03-10] MEDS: ZINC GLUCONATE PO SCH (19:48)
[2017-03-10] MEDS: CALCIUM CARBONATE PO SCH (19:48)
[2017-03-10] MEDS: [UNRECOGNIZED DRUG - OTHER] PO SCH (19:50)
[2017-03-10] MEDS: TURMERIC 500 MG PO SCH (19:51)
[2017-03-11] MEDS: LEVOTHYROXINE PO SCH (06:38)
[2017-03-11] MEDS: PRADAXA 150 MG PO SCH ×2 (10:09→18:14)
[2017-03-11] MEDS: Acetaminophen 500 MG Tab PO SCH (10:09)
[2017-03-11] MEDS: UBIDECARENONE 200 MG PO SCH (10:10)
[2017-03-11] MEDS: CHOLECALCIFEROL 2000 UNIT PO SCH (10:10)
[2017-03-11] MEDS: [UNRECOGNIZED DRUG - OTHER] TOP PRN (10:11)
[2017-03-11] MEDS: LIDOCAINE 2% TOP PRN (10:11)
[2017-03-11] MEDS: TURMERIC 500 MG PO SCH (18:12)
[2017-03-11] MEDS: ZINC GLUCONATE PO SCH (18:13)
[2017-03-11] MEDS: CALCIUM CARBONATE PO SCH (18:13)
[2017-03-11] MEDS: OMEGA FISH OIL PO SCH (18:13)
[2017-03-11] MEDS: MAGNESIUM OXIDE PO SCH (18:13)
[2017-03-11] MEDS: [UNRECOGNIZED DRUG - OTHER] PO SCH (18:13)
[2017-03-12] MEDS: LEVOTHYROXINE PO SCH (06:11)
[2017-03-12] MEDS: UBIDECARENONE 200 MG PO SCH (10:18)
[2017-03-12] MEDS: PRADAXA 150 MG PO SCH ×2 (10:19→18:22)
[2017-03-12] MEDS: CHOLECALCIFEROL 2000 UNIT PO SCH (10:19)
[2017-03-12] MEDS: Acetaminophen 500 MG Tab PO SCH (10:19)
[2017-03-12] MEDS: MAGNESIUM OXIDE PO SCH (18:22)
[2017-03-12] MEDS: ZINC GLUCONATE PO SCH (18:22)
[2017-03-12] MEDS: TURMERIC 500 MG PO SCH (18:22)
[2017-03-12] MEDS: [UNRECOGNIZED DRUG - OTHER] PO SCH (18:22)
[2017-03-12] MEDS: CALCIUM CARBONATE PO SCH (18:22)
[2017-03-12] MEDS: OMEGA FISH OIL PO SCH (18:22)
[2017-03-13] MEDS: LEVOTHYROXINE PO SCH (06:21)
[2017-03-13] MEDS: UBIDECARENONE 200 MG PO SCH (10:06)
[2017-03-13] MEDS: PRADAXA 150 MG PO SCH ×2 (10:06→19:39)
[2017-03-13] MEDS: CHOLECALCIFEROL 2000 UNIT PO SCH (10:07)
[2017-03-13] MEDS: Acetaminophen 500 MG Tab PO SCH (10:07)
[2017-03-13] MEDS: LIDOCAINE 2% TOP PRN (10:08)
[2017-03-13] MEDS: [UNRECOGNIZED DRUG - OTHER] TOP PRN (10:08)
[2017-03-13] MEDS: MAGNESIUM OXIDE PO SCH (19:39)
[2017-03-13] MEDS: [UNRECOGNIZED DRUG - OTHER] PO SCH (19:39)
[2017-03-13] MEDS: ZINC GLUCONATE PO SCH (19:39)
[2017-03-13] MEDS: TURMERIC 500 MG PO SCH (19:39)
[2017-03-13] MEDS: CALCIUM CARBONATE PO SCH (19:39)
[2017-03-13] MEDS: OMEGA FISH OIL PO SCH (19:40)
[2017-03-14] MEDS: UBIDECARENONE 200 MG PO SCH (10:11)
[2017-03-14] MEDS: CHOLECALCIFEROL 2000 UNIT PO SCH (10:11)
[2017-03-14] MEDS: PRADAXA 150 MG PO SCH ×2 (10:11→18:36)
[2017-03-14] MEDS: Acetaminophen 500 MG Tab PO SCH (10:12)
[2017-03-14] MEDS: LIDOCAINE 2% TOP PRN (10:13)
[2017-03-14] MEDS: [UNRECOGNIZED DRUG - OTHER] TOP PRN (10:13)
[2017-03-14] MEDS: HYPROMELLOSE EYEBOTH PRN (10:18)
[2017-03-14] MEDS: DEXTRAN EYEBOTH PRN (10:18)
[2017-03-14] MEDS: [UNRECOGNIZED DRUG - OTHER] PO SCH (18:36)
[2017-03-14] MEDS: OMEGA FISH OIL PO SCH (18:36)
[2017-03-14] MEDS: MAGNESIUM OXIDE PO SCH (18:36)
[2017-03-14] MEDS: ZINC GLUCONATE PO SCH (18:36)
[2017-03-14] MEDS: CALCIUM CARBONATE PO SCH (18:36)
[2017-03-14] MEDS: TURMERIC 500 MG PO SCH (18:36)
[2017-03-15] MEDS: LEVOTHYROXINE PO SCH (06:06)
[2017-03-15] MEDS: CHOLECALCIFEROL 2000 UNIT PO SCH (09:57)
[2017-03-15] MEDS: UBIDECARENONE 200 MG PO SCH (09:57)
[2017-03-15] MEDS: PRADAXA 150 MG PO SCH ×2 (09:57→18:00)
[2017-03-15] MEDS: Acetaminophen 500 MG Tab PO SCH (09:58)
[2017-03-15] MEDS: [UNRECOGNIZED DRUG - OTHER] TOP PRN (09:59)
[2017-03-15] MEDS: LIDOCAINE 2% TOP PRN (09:59)
[2017-03-15] MEDS: MAGNESIUM OXIDE PO SCH (18:01)
[2017-03-15] MEDS: [UNRECOGNIZED DRUG - OTHER] PO SCH (18:01)
[2017-03-15] MEDS: CALCIUM CARBONATE PO SCH (18:01)
[2017-03-15] MEDS: ZINC GLUCONATE PO SCH (18:01)
[2017-03-15] MEDS: TURMERIC 500 MG PO SCH (18:01)
[2017-03-15] MEDS: OMEGA FISH OIL PO SCH (18:01)
[2017-03-16] MEDS: LEVOTHYROXINE PO SCH (06:01)
[2017-03-16] MEDS: UBIDECARENONE 200 MG PO SCH (09:50)
[2017-03-16] MEDS: CHOLECALCIFEROL 2000 UNIT PO SCH (09:54)
[2017-03-16] MEDS: PRADAXA 150 MG PO SCH ×2 (09:55→18:39)
[2017-03-16] MEDS: Acetaminophen 500 MG Tab PO SCH (09:56)
[2017-03-16] MEDS: LIDOCAINE 2% TOP PRN ×2 (09:59→17:15)
[2017-03-16] MEDS: [UNRECOGNIZED DRUG - OTHER] TOP PRN ×2 (09:59→17:15)
[2017-03-16] MEDS: MAGNESIUM OXIDE PO SCH (18:38)
[2017-03-16] MEDS: ZINC GLUCONATE PO SCH (18:38)
[2017-03-16] MEDS: CALCIUM CARBONATE PO SCH (18:38)
[2017-03-16] MEDS: OMEGA FISH OIL PO SCH (18:38)
[2017-03-16] MEDS: [UNRECOGNIZED DRUG - OTHER] PO SCH (18:39)
[2017-03-16] MEDS: TURMERIC 500 MG PO SCH (18:40)
[2017-03-17] MEDS: LEVOTHYROXINE PO SCH (06:21)
[2017-03-17] MEDS: PRADAXA 150 MG PO SCH ×2 (09:49→18:57)
[2017-03-17] MEDS: Acetaminophen 500 MG Tab PO SCH (09:50)
[2017-03-17] MEDS: CHOLECALCIFEROL 2000 UNIT PO SCH (09:50)
[2017-03-17] MEDS: UBIDECARENONE 200 MG PO SCH (09:53)
[2017-03-17] MEDS: LIDOCAINE 2% TOP PRN (09:54)
[2017-03-17] MEDS: [UNRECOGNIZED DRUG - OTHER] TOP PRN (09:54)
--- NOTE | 2017-03-17 11:09 | PN ---
Progress Note for EMILY SHEETS Date: 03/17/2017 Room #: SUBJECTIVE: This is an 87-year-old on long-term swing bed. The patient feels she is doing fine. Nursing had noted she had been more weepy. The patient states she was just frustrated for another resident up here who was needing to get home as he was a younger patient with some medical problems, otherwise she feels fine. She declines to take anything for depression. She still requires assistance with ADLs due to her arthritis, but she has declined to go through further physical therapy treatments. She has no pain or trouble breathing. OBJECTIVE: Vital Signs: Her temperature is 97.5, pulse is 70, weight is 81.5 kg, blood pressure 128/58, respiratory rate 16, and O2 of 92% on room air. General: She is in no acute distress. Heart: Regular rate and rhythm with murmur. Lungs: Sounds are clear to auscultation bilaterally without crackles or wheezes. Extremities: Warm and dry. No edema. Mental Status: She is alert and orientated x3.. ASSESSMENT: 1. Impaired mobility due to osteoarthritis, severe in her knees. She will continue swing bed cares to require assistance with ADLs. 2. Essential hypertension, controlled. 3. Paroxysmal atrial fibrillation, on Pradaxa for stroke prevention. 4. Mild chronic anemia. She has had no further rectal bleeding. 5. Hypothyroidism, on treatment. 6. Chronic vulvar and vaginal irritation, stable. PLAN: At this point, she will continue swing bed cares. No lab work due until May unless she develops further problems. MKA: 03/17/2017 10:07:25 MODL: 03/17/2017 10:43:01 /[id number]
[2017-03-17] MEDS: OMEGA FISH OIL PO SCH (18:58)
[2017-03-17] MEDS: TURMERIC 500 MG PO SCH (18:58)
[2017-03-17] MEDS: ZINC GLUCONATE PO SCH (18:58)
[2017-03-17] MEDS: MAGNESIUM OXIDE PO SCH (18:58)
[2017-03-17] MEDS: CALCIUM CARBONATE PO SCH (18:58)
[2017-03-17] MEDS: [UNRECOGNIZED DRUG - OTHER] PO SCH (18:59)
[2017-03-18] MEDS: LEVOTHYROXINE PO SCH (06:10)
[2017-03-18] MEDS: Acetaminophen 500 MG Tab PO SCH (10:19)
[2017-03-18] MEDS: CHOLECALCIFEROL 2000 UNIT PO SCH (10:20)
[2017-03-18] MEDS: PRADAXA 150 MG PO SCH ×2 (10:20→18:00)
[2017-03-18] MEDS: UBIDECARENONE 200 MG PO SCH (10:20)
[2017-03-18] MEDS: [UNRECOGNIZED DRUG - OTHER] PO SCH (18:00)
[2017-03-18] MEDS: ZINC GLUCONATE PO SCH (18:00)
[2017-03-18] MEDS: MAGNESIUM OXIDE PO SCH (18:00)
[2017-03-18] MEDS: CALCIUM CARBONATE PO SCH (18:00)
[2017-03-18] MEDS: TURMERIC 500 MG PO SCH (18:00)
[2017-03-18] MEDS: OMEGA FISH OIL PO SCH (18:01)
[2017-03-19] MEDS: LEVOTHYROXINE PO SCH (06:04)
[2017-03-19] MEDS: CHOLECALCIFEROL 2000 UNIT PO SCH (09:22)
[2017-03-19] MEDS: Acetaminophen 500 MG Tab PO SCH (09:22)
[2017-03-19] MEDS: PRADAXA 150 MG PO SCH ×2 (09:22→19:41)
[2017-03-19] MEDS: UBIDECARENONE 200 MG PO SCH (09:23)
[2017-03-19] MEDS: [UNRECOGNIZED DRUG - OTHER] PO SCH (19:40)
[2017-03-19] MEDS: CALCIUM CARBONATE PO SCH (19:40)
[2017-03-19] MEDS: TURMERIC 500 MG PO SCH (19:40)
[2017-03-19] MEDS: OMEGA FISH OIL PO SCH (19:40)
[2017-03-19] MEDS: ZINC GLUCONATE PO SCH (19:40)
[2017-03-19] MEDS: MAGNESIUM OXIDE PO SCH (19:40)
[2017-03-20] MEDS: LEVOTHYROXINE PO SCH (06:06)
[2017-03-20] MEDS: CHOLECALCIFEROL 2000 UNIT PO SCH (10:30)
[2017-03-20] MEDS: PRADAXA 150 MG PO SCH ×2 (10:30→18:07)
[2017-03-20] MEDS: Acetaminophen 500 MG Tab PO SCH (10:30)
[2017-03-20] MEDS: UBIDECARENONE 200 MG PO SCH (10:30)
[2017-03-20] MEDS: OMEGA FISH OIL PO SCH (18:07)
[2017-03-20] MEDS: TURMERIC 500 MG PO SCH (18:07)
[2017-03-20] MEDS: [UNRECOGNIZED DRUG - OTHER] PO SCH (18:08)
[2017-03-20] MEDS: MAGNESIUM OXIDE PO SCH (18:08)
[2017-03-20] MEDS: CALCIUM CARBONATE PO SCH (18:08)
[2017-03-20] MEDS: ZINC GLUCONATE PO SCH (18:08)
[2017-03-21] MEDS: PRADAXA 150 MG PO SCH ×2 (10:15→18:06)
[2017-03-21] MEDS: UBIDECARENONE 200 MG PO SCH (10:15)
[2017-03-21] MEDS: Acetaminophen 500 MG Tab PO SCH (10:16)
[2017-03-21] MEDS: CHOLECALCIFEROL 2000 UNIT PO SCH (10:16)
[2017-03-21] MEDS: OMEGA FISH OIL PO SCH (18:06)
[2017-03-21] MEDS: TURMERIC 500 MG PO SCH (18:06)
[2017-03-21] MEDS: MAGNESIUM OXIDE PO SCH (18:07)
[2017-03-21] MEDS: ZINC GLUCONATE PO SCH (18:07)
[2017-03-21] MEDS: CALCIUM CARBONATE PO SCH (18:07)
[2017-03-21] MEDS: [UNRECOGNIZED DRUG - OTHER] PO SCH (18:07)
[2017-03-22] MEDS: LEVOTHYROXINE PO SCH (06:08)
[2017-03-22] MEDS: Acetaminophen 500 MG Tab PO SCH (09:53)
[2017-03-22] MEDS: UBIDECARENONE 200 MG PO SCH (09:53)
[2017-03-22] MEDS: PRADAXA 150 MG PO SCH ×2 (09:53→18:59)
[2017-03-22] MEDS: CHOLECALCIFEROL 2000 UNIT PO SCH (09:54)
[2017-03-22] MEDS: MAGNESIUM OXIDE PO SCH (18:59)
[2017-03-22] MEDS: TURMERIC 500 MG PO SCH (18:59)
[2017-03-22] MEDS: CALCIUM CARBONATE PO SCH (18:59)
[2017-03-22] MEDS: OMEGA FISH OIL PO SCH (18:59)
[2017-03-22] MEDS: ZINC GLUCONATE PO SCH (18:59)
[2017-03-22] MEDS: [UNRECOGNIZED DRUG - OTHER] PO SCH (19:00)
[2017-03-23] MEDS: LEVOTHYROXINE PO SCH (06:33)
[2017-03-23] MEDS: CHOLECALCIFEROL 2000 UNIT PO SCH (09:59)
[2017-03-23] MEDS: PRADAXA 150 MG PO SCH ×2 (09:59→18:09)
[2017-03-23] MEDS: UBIDECARENONE 200 MG PO SCH (09:59)
[2017-03-23] MEDS: Acetaminophen 500 MG Tab PO SCH (10:00)
[2017-03-23] MEDS: Miconazole 2% Top Powder 45 GM Container TOP PRN (10:01)
[2017-03-23] MEDS: CALCIUM CARBONATE PO SCH (18:09)
[2017-03-23] MEDS: OMEGA FISH OIL PO SCH (18:09)
[2017-03-23] MEDS: ZINC GLUCONATE PO SCH (18:09)
[2017-03-23] MEDS: [UNRECOGNIZED DRUG - OTHER] PO SCH (18:09)
[2017-03-23] MEDS: TURMERIC 500 MG PO SCH (18:09)
[2017-03-23] MEDS: MAGNESIUM OXIDE PO SCH (18:09)
[2017-03-24] MEDS: LEVOTHYROXINE PO SCH (06:03)
[2017-03-24] MEDS: CHOLECALCIFEROL 2000 UNIT PO SCH (09:43)
[2017-03-24] MEDS: PRADAXA 150 MG PO SCH ×2 (09:43→18:08)
[2017-03-24] MEDS: UBIDECARENONE 200 MG PO SCH (09:43)
[2017-03-24] MEDS: Acetaminophen 500 MG Tab PO SCH (09:44)
[2017-03-24] MEDS: DEXTRAN EYEBOTH PRN (11:15)
[2017-03-24] MEDS: HYPROMELLOSE EYEBOTH PRN (11:15)
[2017-03-24] MEDS: TURMERIC 500 MG PO SCH (18:08)
[2017-03-24] MEDS: OMEGA FISH OIL PO SCH (18:08)
[2017-03-24] MEDS: [UNRECOGNIZED DRUG - OTHER] PO SCH (18:08)
[2017-03-24] MEDS: ZINC GLUCONATE PO SCH (18:08)
[2017-03-24] MEDS: MAGNESIUM OXIDE PO SCH (18:08)
[2017-03-24] MEDS: CALCIUM CARBONATE PO SCH (18:08)
[2017-03-25] MEDS: LEVOTHYROXINE PO SCH (06:22)
[2017-03-25] MEDS: PRADAXA 150 MG PO SCH ×2 (10:13→18:46)
[2017-03-25] MEDS: CHOLECALCIFEROL 2000 UNIT PO SCH (10:13)
[2017-03-25] MEDS: Acetaminophen 500 MG Tab PO SCH (10:14)
[2017-03-25] MEDS: UBIDECARENONE 200 MG PO SCH (10:14)
[2017-03-25] MEDS: OMEGA FISH OIL PO SCH (18:46)
[2017-03-25] MEDS: MAGNESIUM OXIDE PO SCH (18:46)
[2017-03-25] MEDS: ZINC GLUCONATE PO SCH (18:46)
[2017-03-25] MEDS: [UNRECOGNIZED DRUG - OTHER] PO SCH (18:46)
[2017-03-25] MEDS: CALCIUM CARBONATE PO SCH (18:46)
[2017-03-25] MEDS: TURMERIC 500 MG PO SCH (18:46)
[2017-03-26] MEDS: LEVOTHYROXINE PO SCH (06:16)
[2017-03-26] MEDS: PRADAXA 150 MG PO SCH ×2 (10:05→18:22)
[2017-03-26] MEDS: CHOLECALCIFEROL 2000 UNIT PO SCH (10:05)
[2017-03-26] MEDS: Acetaminophen 500 MG Tab PO SCH (10:06)
[2017-03-26] MEDS: UBIDECARENONE 200 MG PO SCH (10:06)
[2017-03-26] MEDS: CALCIUM CARBONATE PO SCH (18:22)
[2017-03-26] MEDS: TURMERIC 500 MG PO SCH (18:22)
[2017-03-26] MEDS: ZINC GLUCONATE PO SCH (18:22)
[2017-03-26] MEDS: MAGNESIUM OXIDE PO SCH (18:22)
[2017-03-26] MEDS: OMEGA FISH OIL PO SCH (18:23)
[2017-03-26] MEDS: [UNRECOGNIZED DRUG - OTHER] PO SCH (18:23)
[2017-03-27] MEDS: LEVOTHYROXINE PO SCH (06:21)
[2017-03-27] MEDS: UBIDECARENONE 200 MG PO SCH (10:03)
[2017-03-27] MEDS: PRADAXA 150 MG PO SCH ×2 (10:04→18:36)
[2017-03-27] MEDS: Acetaminophen 500 MG Tab PO SCH (10:04)
[2017-03-27] MEDS: CHOLECALCIFEROL 2000 UNIT PO SCH (10:04)
[2017-03-27] MEDS: CALCIUM CARBONATE PO SCH (18:36)
[2017-03-27] MEDS: MAGNESIUM OXIDE PO SCH (18:36)
[2017-03-27] MEDS: ZINC GLUCONATE PO SCH (18:36)
[2017-03-27] MEDS: TURMERIC 500 MG PO SCH (18:36)
[2017-03-27] MEDS: [UNRECOGNIZED DRUG - OTHER] PO SCH (18:36)
[2017-03-27] MEDS: OMEGA FISH OIL PO SCH (18:37)
[2017-03-28] MEDS: UBIDECARENONE 200 MG PO SCH (10:02)
[2017-03-28] MEDS: PRADAXA 150 MG PO SCH ×2 (10:02→18:44)
[2017-03-28] MEDS: CHOLECALCIFEROL 2000 UNIT PO SCH (10:02)
[2017-03-28] MEDS: Acetaminophen 500 MG Tab PO SCH (10:03)
[2017-03-28] MEDS: [UNRECOGNIZED DRUG - OTHER] PO SCH (18:45)
[2017-03-28] MEDS: OMEGA FISH OIL PO SCH (18:46)
[2017-03-28] MEDS: TURMERIC 500 MG PO SCH (18:46)
[2017-03-28] MEDS: CALCIUM CARBONATE PO SCH (18:46)
[2017-03-28] MEDS: MAGNESIUM OXIDE PO SCH (18:46)
[2017-03-28] MEDS: ZINC GLUCONATE PO SCH (18:46)
[2017-03-29] MEDS: LEVOTHYROXINE PO SCH (06:06)
[2017-03-29] MEDS: PRADAXA 150 MG PO SCH ×2 (10:17→18:12)
[2017-03-29] MEDS: CHOLECALCIFEROL 2000 UNIT PO SCH (10:18)
[2017-03-29] MEDS: UBIDECARENONE 200 MG PO SCH (10:18)
[2017-03-29] MEDS: Acetaminophen 500 MG Tab PO SCH (10:19)
[2017-03-29] MEDS: ZINC GLUCONATE PO SCH (18:13)
[2017-03-29] MEDS: CALCIUM CARBONATE PO SCH (18:13)
[2017-03-29] MEDS: TURMERIC 500 MG PO SCH (18:13)
[2017-03-29] MEDS: [UNRECOGNIZED DRUG - OTHER] PO SCH (18:13)
[2017-03-29] MEDS: MAGNESIUM OXIDE PO SCH (18:13)
[2017-03-29] MEDS: OMEGA FISH OIL PO SCH (18:13)
[2017-03-30] MEDS: LEVOTHYROXINE PO SCH (06:04)
[2017-03-30] MEDS: UBIDECARENONE 200 MG PO SCH (10:22)
[2017-03-30] MEDS: CHOLECALCIFEROL 2000 UNIT PO SCH (10:23)
[2017-03-30] MEDS: PRADAXA 150 MG PO SCH ×2 (10:23→18:29)
[2017-03-30] MEDS: Acetaminophen 500 MG Tab PO SCH (10:23)
[2017-03-30] MEDS: MAGNESIUM OXIDE PO SCH (18:28)
[2017-03-30] MEDS: CALCIUM CARBONATE PO SCH (18:28)
[2017-03-30] MEDS: ZINC GLUCONATE PO SCH (18:28)
[2017-03-30] MEDS: [UNRECOGNIZED DRUG - OTHER] PO SCH (18:29)
[2017-03-30] MEDS: OMEGA FISH OIL PO SCH (18:29)
[2017-03-30] MEDS: TURMERIC 500 MG PO SCH (18:29)
[2017-03-31] MEDS: LEVOTHYROXINE PO SCH (06:10)
[2017-03-31] MEDS: UBIDECARENONE 200 MG PO SCH (10:38)
[2017-03-31] MEDS: PRADAXA 150 MG PO SCH ×2 (10:38→20:40)
[2017-03-31] MEDS: CHOLECALCIFEROL 2000 UNIT PO SCH (10:39)
[2017-03-31] MEDS: Acetaminophen 500 MG Tab PO SCH (10:39)
[2017-03-31] MEDS: OMEGA FISH OIL PO SCH (20:38)
[2017-03-31] MEDS: CALCIUM CARBONATE PO SCH (20:38)
[2017-03-31] MEDS: ZINC GLUCONATE PO SCH (20:38)
[2017-03-31] MEDS: MAGNESIUM OXIDE PO SCH (20:38)
[2017-03-31] MEDS: [UNRECOGNIZED DRUG - OTHER] PO SCH (20:40)
[2017-03-31] MEDS: TURMERIC 500 MG PO SCH (20:40)
[2017-04-01] MEDS: LEVOTHYROXINE PO SCH (06:09)
[2017-04-01] MEDS: PRADAXA 150 MG PO SCH ×2 (09:41→18:12)
[2017-04-01] MEDS: Acetaminophen 500 MG Tab PO SCH (09:41)
[2017-04-01] MEDS: CHOLECALCIFEROL 2000 UNIT PO SCH (09:42)
[2017-04-01] MEDS: UBIDECARENONE 200 MG PO SCH (09:42)
[2017-04-01] MEDS: [UNRECOGNIZED DRUG - OTHER] PO SCH (18:11)
[2017-04-01] MEDS: CALCIUM CARBONATE PO SCH (18:11)
[2017-04-01] MEDS: TURMERIC 500 MG PO SCH (18:11)
[2017-04-01] MEDS: OMEGA FISH OIL PO SCH (18:11)
[2017-04-01] MEDS: MAGNESIUM OXIDE PO SCH (18:11)
[2017-04-01] MEDS: ZINC GLUCONATE PO SCH (18:11)
[2017-04-02] MEDS: LEVOTHYROXINE PO SCH (08:25)
[2017-04-02] MEDS: PRADAXA 150 MG PO SCH ×2 (10:13→18:49)
[2017-04-02] MEDS: UBIDECARENONE 200 MG PO SCH (10:14)
[2017-04-02] MEDS: Acetaminophen 500 MG Tab PO SCH (10:14)
[2017-04-02] MEDS: CHOLECALCIFEROL 2000 UNIT PO SCH (10:14)
[2017-04-02] MEDS: HYPROMELLOSE EYEBOTH PRN (10:15)
[2017-04-02] MEDS: DEXTRAN EYEBOTH PRN (10:15)
[2017-04-02] MEDS: TURMERIC 500 MG PO SCH (18:49)
[2017-04-02] MEDS: CALCIUM CARBONATE PO SCH (18:49)
[2017-04-02] MEDS: ZINC GLUCONATE PO SCH (18:49)
[2017-04-02] MEDS: MAGNESIUM OXIDE PO SCH (18:49)
[2017-04-02] MEDS: [UNRECOGNIZED DRUG - OTHER] PO SCH (18:50)
[2017-04-03] MEDS: LEVOTHYROXINE PO SCH (06:12)
[2017-04-03] MEDS: CHOLECALCIFEROL 2000 UNIT PO SCH (10:20)
[2017-04-03] MEDS: PRADAXA 150 MG PO SCH ×2 (10:20→18:03)
[2017-04-03] MEDS: UBIDECARENONE 200 MG PO SCH (10:21)
[2017-04-03] MEDS: Acetaminophen 500 MG Tab PO SCH (10:21)
[2017-04-03] MEDS: CALCIUM CARBONATE PO SCH (18:04)
[2017-04-03] MEDS: [UNRECOGNIZED DRUG - OTHER] PO SCH (18:04)
[2017-04-03] MEDS: TURMERIC 500 MG PO SCH (18:04)
[2017-04-03] MEDS: MAGNESIUM OXIDE PO SCH (18:04)
[2017-04-03] MEDS: ZINC GLUCONATE PO SCH (18:04)
[2017-04-04] MEDS: CHOLECALCIFEROL 2000 UNIT PO SCH (10:57)
[2017-04-04] MEDS: PRADAXA 150 MG PO SCH ×2 (10:58→18:35)
[2017-04-04] MEDS: Acetaminophen 500 MG Tab PO SCH (10:59)
[2017-04-04] MEDS: UBIDECARENONE 200 MG PO SCH (11:00)
[2017-04-04] MEDS: TURMERIC 500 MG PO SCH (18:35)
[2017-04-04] MEDS: CALCIUM CARBONATE PO SCH (18:36)
[2017-04-04] MEDS: [UNRECOGNIZED DRUG - OTHER] PO SCH (18:36)
[2017-04-04] MEDS: ZINC GLUCONATE PO SCH (18:36)
[2017-04-04] MEDS: MAGNESIUM OXIDE PO SCH (18:36)
[2017-04-05] MEDS: LEVOTHYROXINE PO SCH (06:13)
[2017-04-05] MEDS: CHOLECALCIFEROL 2000 UNIT PO SCH (09:48)
[2017-04-05] MEDS: PRADAXA 150 MG PO SCH ×2 (09:48→18:44)
[2017-04-05] MEDS: Acetaminophen 500 MG Tab PO SCH (09:49)
[2017-04-05] MEDS: UBIDECARENONE 200 MG PO SCH (09:50)
[2017-04-05] MEDS: ZINC GLUCONATE PO SCH (18:44)
[2017-04-05] MEDS: MAGNESIUM OXIDE PO SCH (18:44)
[2017-04-05] MEDS: CALCIUM CARBONATE PO SCH (18:44)
[2017-04-05] MEDS: [UNRECOGNIZED DRUG - OTHER] PO SCH (18:45)
[2017-04-05] MEDS: TURMERIC 500 MG PO SCH (18:45)
[2017-04-06] MEDS: LEVOTHYROXINE PO SCH (06:26)
[2017-04-06] MEDS: PRADAXA 150 MG PO SCH ×2 (09:46→18:02)
[2017-04-06] MEDS: UBIDECARENONE 200 MG PO SCH (09:47)
[2017-04-06] MEDS: CHOLECALCIFEROL 2000 UNIT PO SCH (09:47)
[2017-04-06] MEDS: Acetaminophen 500 MG Tab PO SCH (09:47)
[2017-04-06] MEDS: HYPROMELLOSE EYEBOTH PRN (18:02)
[2017-04-06] MEDS: DEXTRAN EYEBOTH PRN (18:02)
[2017-04-06] MEDS: TURMERIC 500 MG PO SCH (18:02)
[2017-04-06] MEDS: ZINC GLUCONATE PO SCH (18:03)
[2017-04-06] MEDS: [UNRECOGNIZED DRUG - OTHER] PO SCH (18:03)
[2017-04-06] MEDS: MAGNESIUM OXIDE PO SCH (18:03)
[2017-04-06] MEDS: CALCIUM CARBONATE PO SCH (18:03)
[2017-04-07] MEDS: LEVOTHYROXINE PO SCH (06:42)
[2017-04-07] MEDS: PRADAXA 150 MG PO SCH ×2 (10:36→18:24)
[2017-04-07] MEDS: CHOLECALCIFEROL 2000 UNIT PO SCH (10:36)
[2017-04-07] MEDS: UBIDECARENONE 200 MG PO SCH (10:36)
[2017-04-07] MEDS: DEXTRAN EYEBOTH PRN (10:37)
[2017-04-07] MEDS: HYPROMELLOSE EYEBOTH PRN (10:37)
[2017-04-07] MEDS: Acetaminophen 500 MG Tab PO SCH (10:37)
[2017-04-07] MEDS: TURMERIC 500 MG PO SCH (18:24)
[2017-04-07] MEDS: ZINC GLUCONATE PO SCH (18:24)
[2017-04-07] MEDS: MAGNESIUM OXIDE PO SCH (18:24)
[2017-04-07] MEDS: CALCIUM CARBONATE PO SCH (18:24)
[2017-04-07] MEDS: [UNRECOGNIZED DRUG - OTHER] PO SCH (18:24)
[2017-04-08] MEDS: LEVOTHYROXINE PO SCH (06:37)
[2017-04-08] MEDS: PRADAXA 150 MG PO SCH ×2 (10:46→18:22)
[2017-04-08] MEDS: CHOLECALCIFEROL 2000 UNIT PO SCH (10:46)
[2017-04-08] MEDS: UBIDECARENONE 200 MG PO SCH (10:46)
[2017-04-08] MEDS: Acetaminophen 500 MG Tab PO SCH (10:47)
[2017-04-08] MEDS: TURMERIC 500 MG PO SCH (18:22)
[2017-04-08] MEDS: CALCIUM CARBONATE PO SCH (18:22)
[2017-04-08] MEDS: MAGNESIUM OXIDE PO SCH (18:22)
[2017-04-08] MEDS: [UNRECOGNIZED DRUG - OTHER] PO SCH (18:22)
[2017-04-08] MEDS: ZINC GLUCONATE PO SCH (18:22)
[2017-04-09] MEDS: LEVOTHYROXINE PO SCH (06:03)
[2017-04-09] MEDS: CHOLECALCIFEROL 2000 UNIT PO SCH (10:23)
[2017-04-09] MEDS: UBIDECARENONE 200 MG PO SCH (10:23)
[2017-04-09] MEDS: Acetaminophen 500 MG Tab PO SCH (10:24)
[2017-04-09] MEDS: PRADAXA 150 MG PO SCH ×2 (10:24→18:40)
[2017-04-09] MEDS: [UNRECOGNIZED DRUG - OTHER] PO SCH (18:39)
[2017-04-09] MEDS: TURMERIC 500 MG PO SCH (18:40)
[2017-04-09] MEDS: CALCIUM CARBONATE PO SCH (18:40)
[2017-04-09] MEDS: MAGNESIUM OXIDE PO SCH (18:40)
[2017-04-09] MEDS: ZINC GLUCONATE PO SCH (18:40)
[2017-04-10] MEDS: LEVOTHYROXINE PO SCH (06:40)
[2017-04-10] MEDS: PRADAXA 150 MG PO SCH ×2 (10:40→18:03)
[2017-04-10] MEDS: CHOLECALCIFEROL 2000 UNIT PO SCH (10:40)
[2017-04-10] MEDS: Acetaminophen 500 MG Tab PO SCH (10:41)
[2017-04-10] MEDS: UBIDECARENONE 200 MG PO SCH (10:41)
[2017-04-10] MEDS: [UNRECOGNIZED DRUG - OTHER] PO SCH (18:03)
[2017-04-10] MEDS: TURMERIC 500 MG PO SCH (18:04)
[2017-04-10] MEDS: MAGNESIUM OXIDE PO SCH (18:04)
[2017-04-10] MEDS: ZINC GLUCONATE PO SCH (18:04)
[2017-04-10] MEDS: CALCIUM CARBONATE PO SCH (18:04)
[2017-04-11] MEDS: CHOLECALCIFEROL 2000 UNIT PO SCH (09:48)
[2017-04-11] MEDS: UBIDECARENONE 200 MG PO SCH (09:48)
[2017-04-11] MEDS: PRADAXA 150 MG PO SCH ×2 (09:48→18:34)
[2017-04-11] MEDS: Acetaminophen 500 MG Tab PO SCH (09:49)
[2017-04-11] MEDS: MAGNESIUM OXIDE PO SCH (18:34)
[2017-04-11] MEDS: CALCIUM CARBONATE PO SCH (18:34)
[2017-04-11] MEDS: [UNRECOGNIZED DRUG - OTHER] PO SCH (18:34)
[2017-04-11] MEDS: TURMERIC 500 MG PO SCH (18:34)
[2017-04-11] MEDS: ZINC GLUCONATE PO SCH (18:34)
[2017-04-12] MEDS: LEVOTHYROXINE PO SCH (06:17)
[2017-04-12] MEDS: PRADAXA 150 MG PO SCH ×2 (09:53→18:18)
[2017-04-12] MEDS: CHOLECALCIFEROL 2000 UNIT PO SCH (09:53)
[2017-04-12] MEDS: UBIDECARENONE 200 MG PO SCH (09:53)
[2017-04-12] MEDS: Acetaminophen 500 MG Tab PO SCH (09:54)
[2017-04-12] MEDS: ZINC GLUCONATE PO SCH (18:17)
[2017-04-12] MEDS: CALCIUM CARBONATE PO SCH (18:17)
[2017-04-12] MEDS: MAGNESIUM OXIDE PO SCH (18:17)
[2017-04-12] MEDS: [UNRECOGNIZED DRUG - OTHER] PO SCH (18:17)
[2017-04-12] MEDS: TURMERIC 500 MG PO SCH (18:17)
[2017-04-13] MEDS: LEVOTHYROXINE PO SCH (06:44)
[2017-04-13] MEDS: UBIDECARENONE 200 MG PO SCH (09:51)
[2017-04-13] MEDS: Acetaminophen 500 MG Tab PO SCH (09:52)
[2017-04-13] MEDS: CHOLECALCIFEROL 2000 UNIT PO SCH (09:52)
[2017-04-13] MEDS: PRADAXA 150 MG PO SCH ×2 (09:52→18:09)
[2017-04-13] MEDS: MAGNESIUM OXIDE PO SCH (18:10)
[2017-04-13] MEDS: TURMERIC 500 MG PO SCH (18:10)
[2017-04-13] MEDS: ZINC GLUCONATE PO SCH (18:10)
[2017-04-13] MEDS: CALCIUM CARBONATE PO SCH (18:10)
[2017-04-13] MEDS: [UNRECOGNIZED DRUG - OTHER] PO SCH (18:10)
[2017-04-14] MEDS: LEVOTHYROXINE PO SCH (06:07)
[2017-04-14] MEDS: UBIDECARENONE 200 MG PO SCH (10:17)
[2017-04-14] MEDS: CHOLECALCIFEROL 2000 UNIT PO SCH (10:17)
[2017-04-14] MEDS: PRADAXA 150 MG PO SCH ×2 (10:18→17:59)
[2017-04-14] MEDS: Acetaminophen 500 MG Tab PO SCH (10:18)
[2017-04-14] MEDS: [UNRECOGNIZED DRUG - OTHER] PO SCH (17:59)
[2017-04-14] MEDS: MAGNESIUM OXIDE PO SCH (17:59)
[2017-04-14] MEDS: ZINC GLUCONATE PO SCH (17:59)
[2017-04-14] MEDS: TURMERIC 500 MG PO SCH (17:59)
[2017-04-14] MEDS: CALCIUM CARBONATE PO SCH (17:59)
[2017-04-15] MEDS: LEVOTHYROXINE PO SCH (06:02)
[2017-04-15] MEDS: PRADAXA 150 MG PO SCH ×2 (09:57→18:14)
[2017-04-15] MEDS: UBIDECARENONE 200 MG PO SCH (09:57)
[2017-04-15] MEDS: CHOLECALCIFEROL 2000 UNIT PO SCH (09:58)
[2017-04-15] MEDS: Acetaminophen 500 MG Tab PO SCH (09:58)
[2017-04-15] MEDS: DEXTRAN EYEBOTH PRN (10:00)
[2017-04-15] MEDS: HYPROMELLOSE EYEBOTH PRN (10:00)
[2017-04-15] MEDS: CALCIUM CARBONATE PO SCH (18:13)
[2017-04-15] MEDS: MAGNESIUM OXIDE PO SCH (18:13)
[2017-04-15] MEDS: TURMERIC 500 MG PO SCH (18:13)
[2017-04-15] MEDS: ZINC GLUCONATE PO SCH (18:13)
[2017-04-15] MEDS: [UNRECOGNIZED DRUG - OTHER] PO SCH (18:13)
[2017-04-16] MEDS: LEVOTHYROXINE PO SCH (06:00)
[2017-04-16] MEDS: CHOLECALCIFEROL 2000 UNIT PO SCH (09:51)
[2017-04-16] MEDS: PRADAXA 150 MG PO SCH ×2 (09:51→18:32)
[2017-04-16] MEDS: Acetaminophen 500 MG Tab PO SCH (09:52)
[2017-04-16] MEDS: UBIDECARENONE 200 MG PO SCH (09:53)
[2017-04-16] MEDS: [UNRECOGNIZED DRUG - OTHER] PO SCH (18:31)
[2017-04-16] MEDS: TURMERIC 500 MG PO SCH (18:31)
[2017-04-16] MEDS: ZINC GLUCONATE PO SCH (18:32)
[2017-04-16] MEDS: CALCIUM CARBONATE PO SCH (18:32)
[2017-04-16] MEDS: MAGNESIUM OXIDE PO SCH (18:32)
[2017-04-17] MEDS: LEVOTHYROXINE PO SCH (06:45)
[2017-04-17] MEDS: PRADAXA 150 MG PO SCH ×2 (10:42→18:36)
[2017-04-17] MEDS: Acetaminophen 500 MG Tab PO SCH (10:43)
[2017-04-17] MEDS: CHOLECALCIFEROL 2000 UNIT PO SCH (10:44)
[2017-04-17] MEDS: UBIDECARENONE 200 MG PO SCH (10:45)
[2017-04-17] MEDS: CALCIUM CARBONATE PO SCH (18:37)
[2017-04-17] MEDS: ZINC GLUCONATE PO SCH (18:37)
[2017-04-17] MEDS: MAGNESIUM OXIDE PO SCH (18:37)
[2017-04-17] MEDS: TURMERIC 500 MG PO SCH (18:37)
[2017-04-17] MEDS: [UNRECOGNIZED DRUG - OTHER] PO SCH (18:38)
[2017-04-18] MEDS: PRADAXA 150 MG PO SCH ×2 (10:04→18:11)
[2017-04-18] MEDS: Acetaminophen 500 MG Tab PO SCH (10:04)
[2017-04-18] MEDS: UBIDECARENONE 200 MG PO SCH (10:05)
[2017-04-18] MEDS: CHOLECALCIFEROL 2000 UNIT PO SCH (10:06)
[2017-04-18] MEDS: ZINC GLUCONATE PO SCH (18:12)
[2017-04-18] MEDS: MAGNESIUM OXIDE PO SCH (18:12)
[2017-04-18] MEDS: [UNRECOGNIZED DRUG - OTHER] PO SCH (18:12)
[2017-04-18] MEDS: CALCIUM CARBONATE PO SCH (18:12)
[2017-04-18] MEDS: TURMERIC 500 MG PO SCH (18:12)
[2017-04-19] MEDS: LEVOTHYROXINE PO SCH (06:35)
[2017-04-19] MEDS: PRADAXA 150 MG PO SCH ×2 (10:32→18:56)
[2017-04-19] MEDS: CHOLECALCIFEROL 2000 UNIT PO SCH (10:33)
[2017-04-19] MEDS: Acetaminophen 500 MG Tab PO SCH (10:33)
[2017-04-19] MEDS: UBIDECARENONE 200 MG PO SCH (10:34)
[2017-04-19] MEDS: ZINC GLUCONATE PO SCH (18:55)
[2017-04-19] MEDS: MAGNESIUM OXIDE PO SCH (18:55)
[2017-04-19] MEDS: CALCIUM CARBONATE PO SCH (18:55)
[2017-04-19] MEDS: TURMERIC 500 MG PO SCH (18:56)
[2017-04-19] MEDS: [UNRECOGNIZED DRUG - OTHER] PO SCH (18:56)
[2017-04-20] MEDS: LEVOTHYROXINE PO SCH (06:05)
[2017-04-20] MEDS: PRADAXA 150 MG PO SCH ×2 (09:49→18:36)
[2017-04-20] MEDS: UBIDECARENONE 200 MG PO SCH (09:50)
[2017-04-20] MEDS: CHOLECALCIFEROL 2000 UNIT PO SCH (09:50)
[2017-04-20] MEDS: Acetaminophen 500 MG Tab PO SCH (09:50)
[2017-04-20] MEDS: TURMERIC 500 MG PO SCH (18:36)
[2017-04-20] MEDS: MAGNESIUM OXIDE PO SCH (18:37)
[2017-04-20] MEDS: CALCIUM CARBONATE PO SCH (18:37)
[2017-04-20] MEDS: ZINC GLUCONATE PO SCH (18:37)
[2017-04-20] MEDS: [UNRECOGNIZED DRUG - OTHER] PO SCH (18:37)
[2017-04-21] MEDS: LEVOTHYROXINE PO SCH (06:06)
[2017-04-21] MEDS: CHOLECALCIFEROL 2000 UNIT PO SCH (10:30)
[2017-04-21] MEDS: UBIDECARENONE 200 MG PO SCH (10:31)
[2017-04-21] MEDS: PRADAXA 150 MG PO SCH ×2 (10:31→18:06)
[2017-04-21] MEDS: Acetaminophen 500 MG Tab PO SCH (10:32)
[2017-04-21] MEDS: [UNRECOGNIZED DRUG - OTHER] PO SCH (18:06)
[2017-04-21] MEDS: TURMERIC 500 MG PO SCH (18:06)
[2017-04-21] MEDS: MAGNESIUM OXIDE PO SCH (18:06)
[2017-04-21] MEDS: ZINC GLUCONATE PO SCH (18:06)
[2017-04-21] MEDS: CALCIUM CARBONATE PO SCH (18:06)
[2017-04-21] MEDS: HYPROMELLOSE EYEBOTH PRN (18:07)
[2017-04-21] MEDS: DEXTRAN EYEBOTH PRN (18:07)
[2017-04-22] MEDS: LEVOTHYROXINE PO SCH (06:14)
[2017-04-22] MEDS: UBIDECARENONE 200 MG PO SCH (09:44)
[2017-04-22] MEDS: PRADAXA 150 MG PO SCH ×2 (09:45→18:07)
[2017-04-22] MEDS: CHOLECALCIFEROL 2000 UNIT PO SCH (09:45)
[2017-04-22] MEDS: Acetaminophen 500 MG Tab PO SCH (09:46)
[2017-04-22] MEDS: [UNRECOGNIZED DRUG - OTHER] PO SCH (18:06)
[2017-04-22] MEDS: TURMERIC 500 MG PO SCH (18:07)
[2017-04-22] MEDS: MAGNESIUM OXIDE PO SCH (18:07)
[2017-04-22] MEDS: CALCIUM CARBONATE PO SCH (18:07)
[2017-04-22] MEDS: ZINC GLUCONATE PO SCH (18:07)
[2017-04-23] MEDS: LEVOTHYROXINE PO SCH (06:10)
[2017-04-23] MEDS: Acetaminophen 500 MG Tab PO SCH (11:09)
[2017-04-23] MEDS: CHOLECALCIFEROL 2000 UNIT PO SCH (11:09)
[2017-04-23] MEDS: PRADAXA 150 MG PO SCH ×2 (11:09→18:29)
[2017-04-23] MEDS: UBIDECARENONE 200 MG PO SCH (11:09)
[2017-04-23] MEDS: MAGNESIUM OXIDE PO SCH (18:29)
[2017-04-23] MEDS: TURMERIC 500 MG PO SCH (18:29)
[2017-04-23] MEDS: CALCIUM CARBONATE PO SCH (18:29)
[2017-04-23] MEDS: [UNRECOGNIZED DRUG - OTHER] PO SCH (18:29)
[2017-04-23] MEDS: ZINC GLUCONATE PO SCH (18:29)
[2017-04-24] MEDS: LEVOTHYROXINE PO SCH (06:04)
[2017-04-24] MEDS: PRADAXA 150 MG PO SCH ×2 (09:56→17:59)
[2017-04-24] MEDS: Acetaminophen 500 MG Tab PO SCH (09:56)
[2017-04-24] MEDS: CHOLECALCIFEROL 2000 UNIT PO SCH (09:57)
[2017-04-24] MEDS: UBIDECARENONE 200 MG PO SCH (09:58)
[2017-04-24] MEDS: [UNRECOGNIZED DRUG - OTHER] PO SCH (17:59)
[2017-04-24] MEDS: CALCIUM CARBONATE PO SCH (17:59)
[2017-04-24] MEDS: TURMERIC 500 MG PO SCH (17:59)
[2017-04-24] MEDS: ZINC GLUCONATE PO SCH (17:59)
[2017-04-24] MEDS: MAGNESIUM OXIDE PO SCH (17:59)
[2017-04-25] MEDS: PRADAXA 150 MG PO SCH ×2 (09:51→18:10)
[2017-04-25] MEDS: CHOLECALCIFEROL 2000 UNIT PO SCH (09:51)
[2017-04-25] MEDS: UBIDECARENONE 200 MG PO SCH (09:51)
[2017-04-25] MEDS: LIDOCAINE 2% TOP PRN (09:52)
[2017-04-25] MEDS: [UNRECOGNIZED DRUG - OTHER] TOP PRN (09:52)
[2017-04-25] MEDS: Acetaminophen 500 MG Tab PO PRN (09:52)
[2017-04-25] MEDS: [UNRECOGNIZED DRUG - OTHER] TOP PRN (09:53)
[2017-04-25] MEDS: Acetaminophen 500 MG Tab PO SCH (10:57)
[2017-04-25] MEDS: CALCIUM CARBONATE PO SCH (18:10)
[2017-04-25] MEDS: [UNRECOGNIZED DRUG - OTHER] PO SCH (18:10)
[2017-04-25] MEDS: ZINC GLUCONATE PO SCH (18:10)
[2017-04-25] MEDS: MAGNESIUM OXIDE PO SCH (18:10)
[2017-04-25] MEDS: TURMERIC 500 MG PO SCH (18:10)
[2017-04-26] MEDS: LEVOTHYROXINE PO SCH (06:01)
[2017-04-26] MEDS: PRADAXA 150 MG PO SCH ×2 (09:56→18:00)
[2017-04-26] MEDS: CHOLECALCIFEROL 2000 UNIT PO SCH (09:57)
[2017-04-26] MEDS: Acetaminophen 500 MG Tab PO SCH (09:57)
[2017-04-26] MEDS: UBIDECARENONE 200 MG PO SCH (09:57)
[2017-04-26] MEDS: [UNRECOGNIZED DRUG - OTHER] TOP PRN ×2 (09:59→23:13)
[2017-04-26] MEDS: LIDOCAINE 2% TOP PRN ×2 (09:59→23:13)
[2017-04-26] MEDS: [UNRECOGNIZED DRUG - OTHER] TOP PRN ×2 (10:00→23:12)
[2017-04-26] MEDS: MAGNESIUM OXIDE PO SCH (18:00)
[2017-04-26] MEDS: CALCIUM CARBONATE PO SCH (18:00)
[2017-04-26] MEDS: TURMERIC 500 MG PO SCH (18:00)
[2017-04-26] MEDS: [UNRECOGNIZED DRUG - OTHER] PO SCH (18:00)
[2017-04-26] MEDS: ZINC GLUCONATE PO SCH (18:00)
[2017-04-26] MEDS: Menthol/Methyl Salicylate 85 GM Tube TOP PRN (23:11)
[2017-04-27] MEDS: LEVOTHYROXINE PO SCH (06:03)
[2017-04-27] MEDS: UBIDECARENONE 200 MG PO SCH (10:43)
[2017-04-27] MEDS: Acetaminophen 500 MG Tab PO SCH (10:43)
[2017-04-27] MEDS: PRADAXA 150 MG PO SCH ×2 (10:43→19:52)
[2017-04-27] MEDS: CHOLECALCIFEROL 2000 UNIT PO SCH (10:43)
[2017-04-27] MEDS: [UNRECOGNIZED DRUG - OTHER] TOP PRN (10:44)
[2017-04-27] MEDS: LIDOCAINE 2% TOP PRN (10:44)
[2017-04-27] MEDS: TURMERIC 500 MG PO SCH (19:52)
[2017-04-27] MEDS: [UNRECOGNIZED DRUG - OTHER] PO SCH (19:52)
[2017-04-27] MEDS: CALCIUM CARBONATE PO SCH (19:53)
[2017-04-27] MEDS: ZINC GLUCONATE PO SCH (19:53)
[2017-04-27] MEDS: MAGNESIUM OXIDE PO SCH (19:53)
[2017-04-28] MEDS: LEVOTHYROXINE PO SCH (06:03)
[2017-04-28] MEDS: PRADAXA 150 MG PO SCH ×2 (09:59→18:12)
[2017-04-28] MEDS: Acetaminophen 500 MG Tab PO SCH (10:00)
[2017-04-28] MEDS: CHOLECALCIFEROL 2000 UNIT PO SCH (10:00)
[2017-04-28] MEDS: UBIDECARENONE 200 MG PO SCH (10:00)
--- NOTE | 2017-04-28 12:26 | PCM.SN ---
- Free Text/Narrative Note: Nurse reports increased vaginal and labia irritation will restart clobetasol and resume every 3 day premarin. I will evaluate if not improving. She has had this problem off and on for quite some time and is using barrier creams. Has small amount of urine leakage. Has seen [facility] numerous times.
[2017-04-28] MEDS: CLOBETASOL 0.05% TOP SCH ×3 (15:35→23:20)
[2017-04-28] MEDS: TURMERIC 500 MG PO SCH (18:11)
[2017-04-28] MEDS: MAGNESIUM OXIDE PO SCH (18:12)
[2017-04-28] MEDS: ZINC GLUCONATE PO SCH (18:12)
[2017-04-28] MEDS: [UNRECOGNIZED DRUG - OTHER] PO SCH (18:12)
[2017-04-28] MEDS: CALCIUM CARBONATE PO SCH (18:12)
[2017-04-28] MEDS: CONJUGATED ESTROGENS TOP SCH (23:19)
[2017-04-28] MEDS: [UNRECOGNIZED DRUG - OTHER] TOP SCH (23:19)
[2017-04-29] MEDS: LEVOTHYROXINE PO SCH (06:10)
[2017-04-29] MEDS: CHOLECALCIFEROL 2000 UNIT PO SCH (09:50)
[2017-04-29] MEDS: PRADAXA 150 MG PO SCH ×2 (09:50→18:18)
[2017-04-29] MEDS: UBIDECARENONE 200 MG PO SCH (09:50)
[2017-04-29] MEDS: Acetaminophen 500 MG Tab PO SCH (09:51)
[2017-04-29] MEDS: CLOBETASOL 0.05% TOP SCH ×2 (09:52→23:22)
[2017-04-29] MEDS: LIDOCAINE 2% TOP PRN (09:57)
[2017-04-29] MEDS: [UNRECOGNIZED DRUG - OTHER] TOP PRN (09:57)
[2017-04-29] MEDS: TURMERIC 500 MG PO SCH (18:20)
[2017-04-29] MEDS: [UNRECOGNIZED DRUG - OTHER] PO SCH (18:20)
[2017-04-29] MEDS: MAGNESIUM OXIDE PO SCH (18:21)
[2017-04-29] MEDS: ZINC GLUCONATE PO SCH (18:21)
[2017-04-29] MEDS: CALCIUM CARBONATE PO SCH (18:21)
[2017-04-30] MEDS: LEVOTHYROXINE PO SCH (06:10)
[2017-04-30] MEDS: PRADAXA 150 MG PO SCH ×2 (09:42→19:58)
[2017-04-30] MEDS: Acetaminophen 500 MG Tab PO SCH (09:42)
[2017-04-30] MEDS: UBIDECARENONE 200 MG PO SCH (09:43)
[2017-04-30] MEDS: CHOLECALCIFEROL 2000 UNIT PO SCH (09:43)
[2017-04-30] MEDS: CLOBETASOL 0.05% TOP SCH ×2 (09:43→23:17)
[2017-04-30] MEDS: CALCIUM CARBONATE PO SCH (19:59)
[2017-04-30] MEDS: ZINC GLUCONATE PO SCH (19:59)
[2017-04-30] MEDS: [UNRECOGNIZED DRUG - OTHER] PO SCH (19:59)
[2017-04-30] MEDS: MAGNESIUM OXIDE PO SCH (19:59)
[2017-04-30] MEDS: TURMERIC 500 MG PO SCH (20:00)
[2017-05-01] MEDS: LEVOTHYROXINE PO SCH (06:02)
[2017-05-01] MEDS: PRADAXA 150 MG PO SCH ×2 (09:40→18:46)
[2017-05-01] MEDS: UBIDECARENONE 200 MG PO SCH (09:41)
[2017-05-01] MEDS: Acetaminophen 500 MG Tab PO SCH (09:41)
[2017-05-01] MEDS: CHOLECALCIFEROL 2000 UNIT PO SCH (09:41)
[2017-05-01] MEDS: CLOBETASOL 0.05% TOP SCH ×2 (09:42→23:04)
[2017-05-01] MEDS: CALCIUM CARBONATE PO SCH (18:47)
[2017-05-01] MEDS: MAGNESIUM OXIDE PO SCH (18:47)
[2017-05-01] MEDS: [UNRECOGNIZED DRUG - OTHER] PO SCH (18:47)
[2017-05-01] MEDS: TURMERIC 500 MG PO SCH (18:47)
[2017-05-01] MEDS: ZINC GLUCONATE PO SCH (18:47)
[2017-05-01] MEDS: [UNRECOGNIZED DRUG - OTHER] TOP SCH (22:59)
[2017-05-01] MEDS: CONJUGATED ESTROGENS TOP SCH (22:59)
[2017-05-02] MEDS: UBIDECARENONE 200 MG PO SCH (09:40)
[2017-05-02] MEDS: PRADAXA 150 MG PO SCH ×2 (09:40→19:26)
[2017-05-02] MEDS: CHOLECALCIFEROL 2000 UNIT PO SCH (09:40)
[2017-05-02] MEDS: CLOBETASOL 0.05% TOP SCH ×2 (09:41→23:30)
[2017-05-02] MEDS: Acetaminophen 500 MG Tab PO SCH (09:41)
[2017-05-02] MEDS: MAGNESIUM OXIDE PO SCH (19:26)
[2017-05-02] MEDS: [UNRECOGNIZED DRUG - OTHER] PO SCH (19:26)
[2017-05-02] MEDS: TURMERIC 500 MG PO SCH (19:26)
[2017-05-02] MEDS: ZINC GLUCONATE PO SCH (19:26)
[2017-05-02] MEDS: CALCIUM CARBONATE PO SCH (19:26)
[2017-05-03] MEDS: LEVOTHYROXINE PO SCH (06:08)
[2017-05-03] MEDS: PRADAXA 150 MG PO SCH ×2 (10:07→18:04)
[2017-05-03] MEDS: UBIDECARENONE 200 MG PO SCH (10:07)
[2017-05-03] MEDS: Acetaminophen 500 MG Tab PO SCH (10:08)
[2017-05-03] MEDS: CHOLECALCIFEROL 2000 UNIT PO SCH (10:08)
[2017-05-03] MEDS: CLOBETASOL 0.05% TOP SCH ×2 (10:09→23:13)
[2017-05-03] MEDS: TURMERIC 500 MG PO SCH (18:04)
[2017-05-03] MEDS: CALCIUM CARBONATE PO SCH (18:05)
[2017-05-03] MEDS: MAGNESIUM OXIDE PO SCH (18:05)
[2017-05-03] MEDS: ZINC GLUCONATE PO SCH (18:05)
[2017-05-03] MEDS: [UNRECOGNIZED DRUG - OTHER] PO SCH (18:05)
[2017-05-03] MEDS: DEXTRAN EYEBOTH PRN (23:14)
[2017-05-03] MEDS: HYPROMELLOSE EYEBOTH PRN (23:14)
[2017-05-04] MEDS: LEVOTHYROXINE PO SCH (06:01)
[2017-05-04] MEDS: UBIDECARENONE 200 MG PO SCH (10:48)
[2017-05-04] MEDS: CHOLECALCIFEROL 2000 UNIT PO SCH (10:49)
[2017-05-04] MEDS: PRADAXA 150 MG PO SCH ×2 (10:49→18:10)
[2017-05-04] MEDS: Acetaminophen 500 MG Tab PO SCH (10:50)
[2017-05-04] MEDS: CLOBETASOL 0.05% TOP SCH ×2 (10:50→23:32)
--- NOTE | 2017-05-04 15:13 | PN ---
Progress Note for EMILY SHEETS Date: 05/04/2017 Room #: SUBJECTIVE: This is an 87-year-old seen today for the purposes of evaluating her labia and vaginal area. 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 She had been trialed on Lotrisone and clobetasol cream. She has been using A&D ointment. Most recently she had tried Calmoseptine. Everything worked for a little while. Last week I was notified that her symptoms were worsening. Therefore, I put her on Premarin cream again as long with clobetasol twice daily, but it is not improving. It is burning, but not itching. There is no whitish discharge, but she just has moisture in her underwear, but she does not feel it is leaking urine. She is having underwear changed through the day. She is wearing white cotton underwear. She is not wearing underwear at night. Otherwise, she does spent a fair amount of time sitting due to arthritis that limits her mobility. PHYSICAL EXAMINATION: Vital signs: Show a temperature of 97.9, pulse 78, blood pressure 136/74, respiratory rate 20, O2 95 on room air. General: She is in no acute distress. : Her lower groin area is examined. Her labia majora looks okay. Labia minora just internally has a slight ulcer over the right side, also a slight ulcer more inferiorly right around the anal area. These were likely felt to be lichen changes. She does have atrophic vaginitis changes as well. ASSESSMENT AND PLAN: Recurrent issues with chronic vulvar and vaginal irritation. We will apply the clobetasol now just mildly internally twice daily for 2 weeks to see if this helps. We will continue her on twice weekly Premarin cream. We will arrange for her to see the section hand helper again, Dr. Ayala, who did her biopsy back in September. Discussed with her that at this point I do not think Dermatology is going to provide much information. It is important to continue to change underwear routinely especially when day up, consider using a pad. MKA: 05/04/2017 12:43:11 MODL: 05/04/2017 13:01:52 /[id number]
[2017-05-04] MEDS: CALCIUM CARBONATE PO SCH (18:10)
[2017-05-04] MEDS: MAGNESIUM OXIDE PO SCH (18:10)
[2017-05-04] MEDS: ZINC GLUCONATE PO SCH (18:10)
[2017-05-04] MEDS: [UNRECOGNIZED DRUG - OTHER] PO SCH (18:11)
[2017-05-04] MEDS: TURMERIC 500 MG PO SCH (18:11)
[2017-05-04] MEDS: CONJUGATED ESTROGENS TOP SCH (23:33)
[2017-05-04] MEDS: [UNRECOGNIZED DRUG - OTHER] TOP SCH (23:33)
[2017-05-05] MEDS: LEVOTHYROXINE PO SCH (06:08)
[2017-05-05] MEDS: CLOBETASOL 0.05% TOP SCH ×2 (09:39→22:56)
[2017-05-05] MEDS: CHOLECALCIFEROL 2000 UNIT PO SCH (09:40)
[2017-05-05] MEDS: PRADAXA 150 MG PO SCH ×2 (09:40→17:59)
[2017-05-05] MEDS: UBIDECARENONE 200 MG PO SCH (09:40)
[2017-05-05] MEDS: Acetaminophen 500 MG Tab PO SCH (09:41)
[2017-05-05] MEDS: HYPROMELLOSE EYEBOTH PRN (09:44)
[2017-05-05] MEDS: DEXTRAN EYEBOTH PRN (09:44)
[2017-05-05] MEDS: ZINC GLUCONATE PO SCH (18:01)
[2017-05-05] MEDS: TURMERIC 500 MG PO SCH (18:01)
[2017-05-05] MEDS: MAGNESIUM OXIDE PO SCH (18:01)
[2017-05-05] MEDS: CALCIUM CARBONATE PO SCH (18:01)
[2017-05-05] MEDS: [UNRECOGNIZED DRUG - OTHER] PO SCH (18:01)
[2017-05-06] MEDS: LEVOTHYROXINE PO SCH (06:00)
[2017-05-06] MEDS: PRADAXA 150 MG PO SCH ×2 (09:34→18:21)
[2017-05-06] MEDS: CLOBETASOL 0.05% TOP SCH ×2 (09:34→23:10)
[2017-05-06] MEDS: UBIDECARENONE 200 MG PO SCH (09:35)
[2017-05-06] MEDS: Acetaminophen 500 MG Tab PO SCH (09:35)
[2017-05-06] MEDS: CHOLECALCIFEROL 2000 UNIT PO SCH (09:35)
[2017-05-06] MEDS: CALCIUM CARBONATE PO SCH (18:21)
[2017-05-06] MEDS: MAGNESIUM OXIDE PO SCH (18:21)
[2017-05-06] MEDS: TURMERIC 500 MG PO SCH (18:21)
[2017-05-06] MEDS: ZINC GLUCONATE PO SCH (18:21)
[2017-05-06] MEDS: [UNRECOGNIZED DRUG - OTHER] PO SCH (18:21)
[2017-05-07] MEDS: LEVOTHYROXINE PO SCH (06:00)
[2017-05-07] MEDS: CLOBETASOL 0.05% TOP SCH ×2 (10:35→23:02)
[2017-05-07] MEDS: PRADAXA 150 MG PO SCH ×2 (10:35→18:49)
[2017-05-07] MEDS: CHOLECALCIFEROL 2000 UNIT PO SCH (10:35)
[2017-05-07] MEDS: Acetaminophen 500 MG Tab PO SCH (10:36)
[2017-05-07] MEDS: UBIDECARENONE 200 MG PO SCH (10:36)
[2017-05-07] MEDS: TURMERIC 500 MG PO SCH (18:48)
[2017-05-07] MEDS: ZINC GLUCONATE PO SCH (18:48)
[2017-05-07] MEDS: MAGNESIUM OXIDE PO SCH (18:48)
[2017-05-07] MEDS: CALCIUM CARBONATE PO SCH (18:48)
[2017-05-07] MEDS: [UNRECOGNIZED DRUG - OTHER] PO SCH (18:49)
[2017-05-07] MEDS: [UNRECOGNIZED DRUG - OTHER] TOP SCH (23:02)
[2017-05-07] MEDS: CONJUGATED ESTROGENS TOP SCH (23:02)
[2017-05-08] MEDS: LEVOTHYROXINE PO SCH (06:03)
[2017-05-08] MEDS: CHOLECALCIFEROL 2000 UNIT PO SCH (09:47)
[2017-05-08] MEDS: PRADAXA 150 MG PO SCH ×2 (09:47→18:35)
[2017-05-08] MEDS: UBIDECARENONE 200 MG PO SCH (09:47)
[2017-05-08] MEDS: Acetaminophen 500 MG Tab PO SCH (09:48)
[2017-05-08] MEDS: CLOBETASOL 0.05% TOP SCH ×2 (09:48→23:32)
[2017-05-08] MEDS: [UNRECOGNIZED DRUG - OTHER] PO SCH (18:35)
[2017-05-08] MEDS: CALCIUM CARBONATE PO SCH (18:36)
[2017-05-08] MEDS: ZINC GLUCONATE PO SCH (18:36)
[2017-05-08] MEDS: MAGNESIUM OXIDE PO SCH (18:36)
[2017-05-08] MEDS: TURMERIC 500 MG PO SCH (18:36)
[2017-05-09] MEDS: UBIDECARENONE 200 MG PO SCH (10:16)
[2017-05-09] MEDS: PRADAXA 150 MG PO SCH ×2 (10:17→18:45)
[2017-05-09] MEDS: CLOBETASOL 0.05% TOP SCH ×2 (10:17→23:33)
[2017-05-09] MEDS: CHOLECALCIFEROL 2000 UNIT PO SCH (10:17)
[2017-05-09] MEDS: Acetaminophen 500 MG Tab PO SCH (10:17)
[2017-05-09] MEDS: CALCIUM CARBONATE PO SCH (18:45)
[2017-05-09] MEDS: ZINC GLUCONATE PO SCH (18:45)
[2017-05-09] MEDS: MAGNESIUM OXIDE PO SCH (18:45)
[2017-05-09] MEDS: TURMERIC 500 MG PO SCH (18:45)
[2017-05-09] MEDS: [UNRECOGNIZED DRUG - OTHER] PO SCH (18:46)
[2017-05-10] MEDS: LEVOTHYROXINE PO SCH (06:27)
[2017-05-10] MEDS: CHOLECALCIFEROL 2000 UNIT PO SCH (09:31)
[2017-05-10] MEDS: PRADAXA 150 MG PO SCH ×2 (09:31→18:01)
[2017-05-10] MEDS: UBIDECARENONE 200 MG PO SCH (09:31)
[2017-05-10] MEDS: Acetaminophen 500 MG Tab PO SCH (09:31)
[2017-05-10] MEDS: CLOBETASOL 0.05% TOP SCH ×2 (09:32→23:17)
[2017-05-10] MEDS: [UNRECOGNIZED DRUG - OTHER] PO SCH (18:02)
[2017-05-10] MEDS: TURMERIC 500 MG PO SCH (18:02)
[2017-05-10] MEDS: MAGNESIUM OXIDE PO SCH (18:02)
[2017-05-10] MEDS: ZINC GLUCONATE PO SCH (18:02)
[2017-05-10] MEDS: CALCIUM CARBONATE PO SCH (18:02)
[2017-05-10] MEDS: [UNRECOGNIZED DRUG - OTHER] TOP SCH (23:16)
[2017-05-10] MEDS: CONJUGATED ESTROGENS TOP SCH (23:16)
[2017-05-10] MEDS: Menthol/Methyl Salicylate 85 GM Tube TOP PRN (23:25)
[2017-05-11] MEDS: LEVOTHYROXINE PO SCH (06:23)
[2017-05-11] MEDS: PRADAXA 150 MG PO SCH ×2 (09:45→18:24)
[2017-05-11] MEDS: Acetaminophen 500 MG Tab PO SCH (09:46)
[2017-05-11] MEDS: CLOBETASOL 0.05% TOP SCH ×2 (09:47→23:35)
[2017-05-11] MEDS: UBIDECARENONE 200 MG PO SCH (09:47)
[2017-05-11] MEDS: CHOLECALCIFEROL 2000 UNIT PO SCH (09:47)
[2017-05-11] MEDS: MAGNESIUM OXIDE PO SCH (18:25)
[2017-05-11] MEDS: TURMERIC 500 MG PO SCH (18:25)
[2017-05-11] MEDS: CALCIUM CARBONATE PO SCH (18:25)
[2017-05-11] MEDS: ZINC GLUCONATE PO SCH (18:25)
[2017-05-11] MEDS: [UNRECOGNIZED DRUG - OTHER] PO SCH (18:25)
[2017-05-12] MEDS: LEVOTHYROXINE PO SCH (06:39)
[2017-05-12] MEDS: Acetaminophen 500 MG Tab PO PRN (10:02)
[2017-05-12] MEDS: PRADAXA 150 MG PO SCH ×2 (10:02→18:31)
[2017-05-12] MEDS: UBIDECARENONE 200 MG PO SCH (10:03)
[2017-05-12] MEDS: CLOBETASOL 0.05% TOP SCH ×2 (10:03→23:28)
[2017-05-12] MEDS: Acetaminophen 500 MG Tab PO SCH (10:03)
[2017-05-12] MEDS: CHOLECALCIFEROL 2000 UNIT PO SCH (10:03)
[2017-05-12] MEDS: [UNRECOGNIZED DRUG - OTHER] PO SCH (18:31)
[2017-05-12] MEDS: MAGNESIUM OXIDE PO SCH (18:31)
[2017-05-12] MEDS: CALCIUM CARBONATE PO SCH (18:31)
[2017-05-12] MEDS: ZINC GLUCONATE PO SCH (18:31)
[2017-05-12] MEDS: TURMERIC 500 MG PO SCH (18:31)
[2017-05-13] MEDS: LEVOTHYROXINE PO SCH (06:07)
[2017-05-13] MEDS: CLOBETASOL 0.05% TOP SCH ×2 (09:45→22:55)
[2017-05-13] MEDS: CHOLECALCIFEROL 2000 UNIT PO SCH (09:51)
[2017-05-13] MEDS: PRADAXA 150 MG PO SCH ×2 (09:51→18:28)
[2017-05-13] MEDS: UBIDECARENONE 200 MG PO SCH (09:51)
[2017-05-13] MEDS: Acetaminophen 500 MG Tab PO SCH (09:52)
[2017-05-13] MEDS: CALCIUM CARBONATE PO SCH (18:27)
[2017-05-13] MEDS: TURMERIC 500 MG PO SCH (18:27)
[2017-05-13] MEDS: ZINC GLUCONATE PO SCH (18:27)
[2017-05-13] MEDS: MAGNESIUM OXIDE PO SCH (18:27)
[2017-05-13] MEDS: [UNRECOGNIZED DRUG - OTHER] PO SCH (18:28)
[2017-05-13] MEDS: CONJUGATED ESTROGENS TOP SCH (22:54)
[2017-05-13] MEDS: [UNRECOGNIZED DRUG - OTHER] TOP SCH (22:54)
[2017-05-14] MEDS: LEVOTHYROXINE PO SCH (06:34)
[2017-05-14] MEDS: PRADAXA 150 MG PO SCH ×2 (10:20→20:00)
[2017-05-14] MEDS: UBIDECARENONE 200 MG PO SCH (10:21)
[2017-05-14] MEDS: Acetaminophen 500 MG Tab PO SCH (10:21)
[2017-05-14] MEDS: CHOLECALCIFEROL 2000 UNIT PO SCH (10:21)
[2017-05-14] MEDS: CLOBETASOL 0.05% TOP SCH ×2 (10:22→22:58)
[2017-05-14] MEDS: ZINC GLUCONATE PO SCH (20:00)
[2017-05-14] MEDS: MAGNESIUM OXIDE PO SCH (20:00)
[2017-05-14] MEDS: CALCIUM CARBONATE PO SCH (20:00)
[2017-05-14] MEDS: TURMERIC 500 MG PO SCH (20:00)
[2017-05-14] MEDS: [UNRECOGNIZED DRUG - OTHER] PO SCH (20:00)
[2017-05-15] MEDS: LEVOTHYROXINE PO SCH (06:55)
[2017-05-15] MEDS: CLOBETASOL 0.05% TOP SCH ×2 (09:37→22:49)
[2017-05-15] MEDS: PRADAXA 150 MG PO SCH ×2 (09:38→18:04)
[2017-05-15] MEDS: Acetaminophen 500 MG Tab PO SCH (09:38)
[2017-05-15] MEDS: CHOLECALCIFEROL 2000 UNIT PO SCH (09:38)
[2017-05-15] MEDS: UBIDECARENONE 200 MG PO SCH (09:38)
[2017-05-15] MEDS: [UNRECOGNIZED DRUG - OTHER] PO SCH (18:04)
[2017-05-15] MEDS: ZINC GLUCONATE PO SCH (18:04)
[2017-05-15] MEDS: CALCIUM CARBONATE PO SCH (18:04)
[2017-05-15] MEDS: MAGNESIUM OXIDE PO SCH (18:04)
[2017-05-15] MEDS: TURMERIC 500 MG PO SCH (18:04)
[2017-05-16] MEDS: CLOBETASOL 0.05% TOP SCH ×2 (09:38→21:09)
[2017-05-16] MEDS: CHOLECALCIFEROL 2000 UNIT PO SCH (09:40)
[2017-05-16] MEDS: Acetaminophen 500 MG Tab PO SCH (09:41)
[2017-05-16] MEDS: UBIDECARENONE 200 MG PO SCH (09:41)
[2017-05-16] MEDS: PRADAXA 150 MG PO SCH ×2 (09:42→21:08)
[2017-05-16] MEDS: HYPROMELLOSE EYEBOTH PRN (09:46)
[2017-05-16] MEDS: DEXTRAN EYEBOTH PRN (09:46)
[2017-05-16] MEDS: [UNRECOGNIZED DRUG - OTHER] TOP PRN (16:55)
[2017-05-16] MEDS: Acetaminophen 500 MG Tab PO PRN (17:00)
[2017-05-16] MEDS: CALCIUM CARBONATE PO SCH (21:07)
[2017-05-16] MEDS: ZINC GLUCONATE PO SCH (21:07)
[2017-05-16] MEDS: MAGNESIUM OXIDE PO SCH (21:07)
[2017-05-16] MEDS: [UNRECOGNIZED DRUG - OTHER] PO SCH (21:08)
[2017-05-16] MEDS: TURMERIC 500 MG PO SCH (21:09)
[2017-05-16] MEDS: [UNRECOGNIZED DRUG - OTHER] TOP SCH (21:10)
[2017-05-16] MEDS: CONJUGATED ESTROGENS TOP SCH (21:10)
[2017-05-17] MEDS: LEVOTHYROXINE PO SCH (06:03)
[2017-05-17] MEDS: PRADAXA 150 MG PO SCH ×2 (09:32→18:34)
[2017-05-17] MEDS: Acetaminophen 500 MG Tab PO SCH (09:32)
[2017-05-17] MEDS: UBIDECARENONE 200 MG PO SCH (09:33)
[2017-05-17] MEDS: CLOBETASOL 0.05% TOP SCH ×2 (09:33→22:00)
[2017-05-17] MEDS: CHOLECALCIFEROL 2000 UNIT PO SCH (09:33)
[2017-05-17] MEDS: TURMERIC 500 MG PO SCH (18:34)
[2017-05-17] MEDS: ZINC GLUCONATE PO SCH (18:35)
[2017-05-17] MEDS: MAGNESIUM OXIDE PO SCH (18:35)
[2017-05-17] MEDS: CALCIUM CARBONATE PO SCH (18:35)
[2017-05-17] MEDS: [UNRECOGNIZED DRUG - OTHER] PO SCH (18:35)
[2017-05-18] MEDS: LEVOTHYROXINE PO SCH (06:03)
[2017-05-18] MEDS: UBIDECARENONE 200 MG PO SCH (10:08)
[2017-05-18] MEDS: CHOLECALCIFEROL 2000 UNIT PO SCH (10:08)
[2017-05-18] MEDS: Acetaminophen 500 MG Tab PO SCH (10:09)
[2017-05-18] MEDS: CLOBETASOL 0.05% TOP SCH (10:09)
[2017-05-18] MEDS: PRADAXA 150 MG PO SCH ×2 (10:09→18:19)
[2017-05-18] MEDS: MAGNESIUM OXIDE PO SCH (18:18)
[2017-05-18] MEDS: ZINC GLUCONATE PO SCH (18:18)
[2017-05-18] MEDS: CALCIUM CARBONATE PO SCH (18:18)
[2017-05-18] MEDS: TURMERIC 500 MG PO SCH (18:19)
[2017-05-18] MEDS: [UNRECOGNIZED DRUG - OTHER] PO SCH (18:19)
[2017-05-19] MEDS: LEVOTHYROXINE PO SCH (06:05)
[2017-05-19] MEDS: Acetaminophen 500 MG Tab PO SCH (09:42)
[2017-05-19] MEDS: UBIDECARENONE 200 MG PO SCH (09:43)
[2017-05-19] MEDS: PRADAXA 150 MG PO SCH ×2 (09:43→18:32)
[2017-05-19] MEDS: CHOLECALCIFEROL 2000 UNIT PO SCH (09:43)
[2017-05-19] MEDS: [UNRECOGNIZED DRUG - OTHER] PO SCH (18:32)
[2017-05-19] MEDS: CALCIUM CARBONATE PO SCH (18:32)
[2017-05-19] MEDS: MAGNESIUM OXIDE PO SCH (18:32)
[2017-05-19] MEDS: TURMERIC 500 MG PO SCH (18:32)
[2017-05-19] MEDS: ZINC GLUCONATE PO SCH (18:32)
[2017-05-19] MEDS: CONJUGATED ESTROGENS TOP SCH (23:06)
[2017-05-19] MEDS: [UNRECOGNIZED DRUG - OTHER] TOP SCH (23:06)
[2017-05-20] MEDS: LEVOTHYROXINE PO SCH (06:12)
[2017-05-20] MEDS: CHOLECALCIFEROL 2000 UNIT PO SCH (09:29)
[2017-05-20] MEDS: UBIDECARENONE 200 MG PO SCH (09:30)
[2017-05-20] MEDS: PRADAXA 150 MG PO SCH ×2 (09:30→19:11)
[2017-05-20] MEDS: Acetaminophen 500 MG Tab PO SCH (09:30)
[2017-05-20] MEDS: Carbamide Peroxide 6.5% Otic Soln 15 ML Bottle EARLF PRN (12:10)
[2017-05-20] MEDS: TURMERIC 500 MG PO SCH (19:11)
[2017-05-20] MEDS: CALCIUM CARBONATE PO SCH (19:12)
[2017-05-20] MEDS: MAGNESIUM OXIDE PO SCH (19:12)
[2017-05-20] MEDS: ZINC GLUCONATE PO SCH (19:12)
[2017-05-20] MEDS: [UNRECOGNIZED DRUG - OTHER] PO SCH (19:12)
[2017-05-21] MEDS: LEVOTHYROXINE PO SCH (06:21)
[2017-05-21] MEDS: UBIDECARENONE 200 MG PO SCH (09:26)
[2017-05-21] MEDS: PRADAXA 150 MG PO SCH ×2 (09:26→18:14)
[2017-05-21] MEDS: CHOLECALCIFEROL 2000 UNIT PO SCH (09:26)
[2017-05-21] MEDS: Acetaminophen 500 MG Tab PO SCH (09:27)
[2017-05-21] MEDS: DEXTRAN EYEBOTH PRN (10:11)
[2017-05-21] MEDS: HYPROMELLOSE EYEBOTH PRN (10:11)
[2017-05-21] MEDS: [UNRECOGNIZED DRUG - OTHER] TOP PRN (10:11)
[2017-05-21] MEDS: MAGNESIUM OXIDE PO SCH (18:14)
[2017-05-21] MEDS: ZINC GLUCONATE PO SCH (18:14)
[2017-05-21] MEDS: TURMERIC 500 MG PO SCH (18:14)
[2017-05-21] MEDS: [UNRECOGNIZED DRUG - OTHER] PO SCH (18:14)
[2017-05-21] MEDS: CALCIUM CARBONATE PO SCH (18:14)
[2017-05-22] MEDS: LEVOTHYROXINE PO SCH (06:27)
[2017-05-22] MEDS: CHOLECALCIFEROL 2000 UNIT PO SCH (10:37)
[2017-05-22] MEDS: Acetaminophen 500 MG Tab PO SCH (10:37)
[2017-05-22] MEDS: UBIDECARENONE 200 MG PO SCH (10:38)
[2017-05-22] MEDS: PRADAXA 150 MG PO SCH ×2 (10:38→18:08)
[2017-05-22] MEDS: [UNRECOGNIZED DRUG - OTHER] PO SCH (18:08)
[2017-05-22] MEDS: MAGNESIUM OXIDE PO SCH (18:08)
[2017-05-22] MEDS: CALCIUM CARBONATE PO SCH (18:08)
[2017-05-22] MEDS: TURMERIC 500 MG PO SCH (18:08)
[2017-05-22] MEDS: ZINC GLUCONATE PO SCH (18:08)
[2017-05-22] MEDS: CONJUGATED ESTROGENS TOP SCH (23:24)
[2017-05-22] MEDS: [UNRECOGNIZED DRUG - OTHER] TOP SCH (23:24)
[2017-05-23] MEDS: CHOLECALCIFEROL 2000 UNIT PO SCH (10:18)
[2017-05-23] MEDS: PRADAXA 150 MG PO SCH ×2 (10:19→19:26)
[2017-05-23] MEDS: Acetaminophen 500 MG Tab PO SCH (10:20)
[2017-05-23] MEDS: UBIDECARENONE 200 MG PO SCH (10:21)
[2017-05-23] MEDS: MAGNESIUM OXIDE PO SCH (19:26)
[2017-05-23] MEDS: ZINC GLUCONATE PO SCH (19:26)
[2017-05-23] MEDS: CALCIUM CARBONATE PO SCH (19:26)
[2017-05-23] MEDS: [UNRECOGNIZED DRUG - OTHER] PO SCH (19:27)
[2017-05-23] MEDS: TURMERIC 500 MG PO SCH (19:27)
[2017-05-24] MEDS: LEVOTHYROXINE PO SCH (06:16)
[2017-05-24] MEDS: Acetaminophen 500 MG Tab PO SCH (09:53)
[2017-05-24] MEDS: PRADAXA 150 MG PO SCH ×2 (09:54→18:53)
[2017-05-24] MEDS: UBIDECARENONE 200 MG PO SCH (09:55)
[2017-05-24] MEDS: CHOLECALCIFEROL 2000 UNIT PO SCH (09:55)
[2017-05-24] MEDS: [UNRECOGNIZED DRUG - OTHER] TOP PRN (09:57)
[2017-05-24] MEDS: TURMERIC 500 MG PO SCH (18:54)
[2017-05-24] MEDS: ZINC GLUCONATE PO SCH (18:54)
[2017-05-24] MEDS: MAGNESIUM OXIDE PO SCH (18:54)
[2017-05-24] MEDS: CALCIUM CARBONATE PO SCH (18:54)
[2017-05-24] MEDS: [UNRECOGNIZED DRUG - OTHER] PO SCH (18:54)
[2017-05-25] MEDS: LEVOTHYROXINE PO SCH (06:11)
[2017-05-25] MEDS: PRADAXA 150 MG PO SCH ×2 (10:59→18:15)
[2017-05-25] MEDS: CHOLECALCIFEROL 2000 UNIT PO SCH (10:59)
[2017-05-25] MEDS: UBIDECARENONE 200 MG PO SCH (11:00)
[2017-05-25] MEDS: Acetaminophen 500 MG Tab PO SCH (11:01)
[2017-05-25] MEDS: MAGNESIUM OXIDE PO SCH (18:15)
[2017-05-25] MEDS: CALCIUM CARBONATE PO SCH (18:15)
[2017-05-25] MEDS: [UNRECOGNIZED DRUG - OTHER] PO SCH (18:15)
[2017-05-25] MEDS: ZINC GLUCONATE PO SCH (18:15)
[2017-05-25] MEDS: TURMERIC 500 MG PO SCH (18:15)
[2017-05-25] MEDS: Betamethasone Dipropionate/Clotrimazole 0.05-1% Crm 15 GM Tube TOP SCH (23:19)
[2017-05-25] MEDS: [UNRECOGNIZED DRUG - OTHER] TOP PRN (23:19)
[2017-05-25] MEDS: CONJUGATED ESTROGENS TOP SCH (23:20)
[2017-05-25] MEDS: [UNRECOGNIZED DRUG - OTHER] TOP SCH (23:20)
[2017-05-26] MEDS: LEVOTHYROXINE PO SCH (06:06)
[2017-05-26] MEDS: PRADAXA 150 MG PO SCH ×2 (09:43→18:20)
[2017-05-26] MEDS: Acetaminophen 500 MG Tab PO SCH (09:44)
[2017-05-26] MEDS: CHOLECALCIFEROL 2000 UNIT PO SCH (09:44)
[2017-05-26] MEDS: UBIDECARENONE 200 MG PO SCH (09:44)
[2017-05-26] MEDS: Betamethasone Dipropionate/Clotrimazole 0.05-1% Crm 15 GM Tube TOP SCH ×2 (09:45→23:26)
[2017-05-26] MEDS: [UNRECOGNIZED DRUG - OTHER] TOP PRN (09:47)
[2017-05-26] MEDS: TURMERIC 500 MG PO SCH (18:20)
[2017-05-26] MEDS: CALCIUM CARBONATE PO SCH (18:21)
[2017-05-26] MEDS: MAGNESIUM OXIDE PO SCH (18:21)
[2017-05-26] MEDS: ZINC GLUCONATE PO SCH (18:21)
[2017-05-26] MEDS: [UNRECOGNIZED DRUG - OTHER] PO SCH (18:21)
[2017-05-27] MEDS: LEVOTHYROXINE PO SCH (06:15)
[2017-05-27] MEDS: UBIDECARENONE 200 MG PO SCH (09:21)
[2017-05-27] MEDS: CHOLECALCIFEROL 2000 UNIT PO SCH (09:21)
[2017-05-27] MEDS: PRADAXA 150 MG PO SCH ×2 (09:21→18:11)
[2017-05-27] MEDS: Acetaminophen 500 MG Tab PO SCH (09:21)
[2017-05-27] MEDS: Betamethasone Dipropionate/Clotrimazole 0.05-1% Crm 15 GM Tube TOP SCH ×2 (09:22→23:30)
[2017-05-27] MEDS: [UNRECOGNIZED DRUG - OTHER] TOP PRN (09:26)
[2017-05-27] MEDS: DEXTRAN EYEBOTH PRN (18:11)
[2017-05-27] MEDS: ZINC GLUCONATE PO SCH (18:11)
[2017-05-27] MEDS: HYPROMELLOSE EYEBOTH PRN (18:11)
[2017-05-27] MEDS: CALCIUM CARBONATE PO SCH (18:11)
[2017-05-27] MEDS: MAGNESIUM OXIDE PO SCH (18:11)
[2017-05-27] MEDS: TURMERIC 500 MG PO SCH (18:11)
[2017-05-27] MEDS: [UNRECOGNIZED DRUG - OTHER] PO SCH (18:11)
[2017-05-28] MEDS: LEVOTHYROXINE PO SCH (06:45)
[2017-05-28] MEDS: Betamethasone Dipropionate/Clotrimazole 0.05-1% Crm 15 GM Tube TOP SCH ×2 (09:38→23:23)
[2017-05-28] MEDS: PRADAXA 150 MG PO SCH ×2 (09:41→20:41)
[2017-05-28] MEDS: [UNRECOGNIZED DRUG - OTHER] TOP PRN ×2 (09:41→23:26)
[2017-05-28] MEDS: CHOLECALCIFEROL 2000 UNIT PO SCH (09:41)
[2017-05-28] MEDS: UBIDECARENONE 200 MG PO SCH (09:42)
[2017-05-28] MEDS: Acetaminophen 500 MG Tab PO SCH (09:43)
[2017-05-28] MEDS: TURMERIC 500 MG PO SCH (20:40)
[2017-05-28] MEDS: MAGNESIUM OXIDE PO SCH (20:41)
[2017-05-28] MEDS: ZINC GLUCONATE PO SCH (20:41)
[2017-05-28] MEDS: [UNRECOGNIZED DRUG - OTHER] PO SCH (20:41)
[2017-05-28] MEDS: CALCIUM CARBONATE PO SCH (20:41)
[2017-05-28] MEDS: Menthol/Methyl Salicylate 85 GM Tube TOP PRN (23:32)
[2017-05-29] MEDS: LEVOTHYROXINE PO SCH (06:16)
[2017-05-29] MEDS: PRADAXA 150 MG PO SCH ×2 (10:08→18:52)
[2017-05-29] MEDS: Acetaminophen 500 MG Tab PO SCH (10:08)
[2017-05-29] MEDS: CHOLECALCIFEROL 2000 UNIT PO SCH (10:08)
[2017-05-29] MEDS: UBIDECARENONE 200 MG PO SCH (10:09)
[2017-05-29] MEDS: Betamethasone Dipropionate/Clotrimazole 0.05-1% Crm 15 GM Tube TOP SCH ×2 (10:09→23:37)
[2017-05-29] MEDS: [UNRECOGNIZED DRUG - OTHER] PO SCH (18:51)
[2017-05-29] MEDS: MAGNESIUM OXIDE PO SCH (18:51)
[2017-05-29] MEDS: CALCIUM CARBONATE PO SCH (18:51)
[2017-05-29] MEDS: ZINC GLUCONATE PO SCH (18:51)
[2017-05-29] MEDS: TURMERIC 500 MG PO SCH (18:52)
[2017-05-29] MEDS: [UNRECOGNIZED DRUG - OTHER] TOP PRN (23:39)
[2017-05-29] MEDS: Menthol/Methyl Salicylate 85 GM Tube TOP PRN (23:42)
[2017-05-30] MEDS: UBIDECARENONE 200 MG PO SCH (09:45)
[2017-05-30] MEDS: PRADAXA 150 MG PO SCH ×2 (09:45→18:52)
[2017-05-30] MEDS: CHOLECALCIFEROL 2000 UNIT PO SCH (09:45)
[2017-05-30] MEDS: Betamethasone Dipropionate/Clotrimazole 0.05-1% Crm 15 GM Tube TOP SCH ×2 (09:46→23:39)
[2017-05-30] MEDS: Acetaminophen 500 MG Tab PO SCH (09:46)
[2017-05-30] MEDS: HYPROMELLOSE EYEBOTH PRN (09:47)
[2017-05-30] MEDS: DEXTRAN EYEBOTH PRN (09:47)
[2017-05-30] MEDS: [UNRECOGNIZED DRUG - OTHER] TOP PRN ×2 (09:47→23:39)
[2017-05-30] MEDS: ZINC GLUCONATE PO SCH (18:52)
[2017-05-30] MEDS: CALCIUM CARBONATE PO SCH (18:52)
[2017-05-30] MEDS: TURMERIC 500 MG PO SCH (18:52)
[2017-05-30] MEDS: MAGNESIUM OXIDE PO SCH (18:52)
[2017-05-30] MEDS: [UNRECOGNIZED DRUG - OTHER] PO SCH (18:52)
[2017-05-30] MEDS: Menthol/Methyl Salicylate 85 GM Tube TOP PRN (23:40)
[2017-05-31] MEDS: LEVOTHYROXINE PO SCH (06:39)
[2017-05-31] MEDS: CHOLECALCIFEROL 2000 UNIT PO SCH (09:31)
[2017-05-31] MEDS: Betamethasone Dipropionate/Clotrimazole 0.05-1% Crm 15 GM Tube TOP SCH ×2 (09:31→23:24)
[2017-05-31] MEDS: PRADAXA 150 MG PO SCH ×2 (09:31→18:29)
[2017-05-31] MEDS: UBIDECARENONE 200 MG PO SCH (09:31)
[2017-05-31] MEDS: Acetaminophen 500 MG Tab PO SCH (09:32)
[2017-05-31] MEDS: CALCIUM CARBONATE PO SCH (18:28)
[2017-05-31] MEDS: ZINC GLUCONATE PO SCH (18:28)
[2017-05-31] MEDS: MAGNESIUM OXIDE PO SCH (18:28)
[2017-05-31] MEDS: TURMERIC 500 MG PO SCH (18:28)
[2017-05-31] MEDS: [UNRECOGNIZED DRUG - OTHER] PO SCH (18:29)
[2017-05-31] MEDS: PREMARIN VAGINAL SCH (23:25)
[2017-05-31] MEDS: [UNRECOGNIZED DRUG - OTHER] TOP PRN (23:25)
[2017-05-31] MEDS: Menthol/Methyl Salicylate 85 GM Tube TOP PRN (23:25)
[2017-06-01] MEDS: LEVOTHYROXINE PO SCH (07:50)
[2017-06-01] MEDS: Acetaminophen 500 MG Tab PO SCH (09:37)
[2017-06-01] MEDS: UBIDECARENONE 200 MG PO SCH (09:37)
[2017-06-01] MEDS: CHOLECALCIFEROL 2000 UNIT PO SCH (09:37)
[2017-06-01] MEDS: PRADAXA 150 MG PO SCH ×2 (09:38→18:12)
[2017-06-01] MEDS: Betamethasone Dipropionate/Clotrimazole 0.05-1% Crm 15 GM Tube TOP SCH ×2 (09:38→23:31)
[2017-06-01] MEDS: [UNRECOGNIZED DRUG - OTHER] TOP PRN (09:39)
[2017-06-01] MEDS: [UNRECOGNIZED DRUG - OTHER] PO SCH (18:12)
[2017-06-01] MEDS: ZINC GLUCONATE PO SCH (18:13)
[2017-06-01] MEDS: MAGNESIUM OXIDE PO SCH (18:13)
[2017-06-01] MEDS: TURMERIC 500 MG PO SCH (18:13)
[2017-06-01] MEDS: CALCIUM CARBONATE PO SCH (18:13)
[2017-06-02] MEDS: LEVOTHYROXINE PO SCH (06:11)
[2017-06-02] MEDS: PRADAXA 150 MG PO SCH ×2 (09:29→18:33)
[2017-06-02] MEDS: UBIDECARENONE 200 MG PO SCH (09:30)
[2017-06-02] MEDS: Betamethasone Dipropionate/Clotrimazole 0.05-1% Crm 15 GM Tube TOP SCH ×2 (09:31→23:30)
[2017-06-02] MEDS: Acetaminophen 500 MG Tab PO SCH (09:31)
[2017-06-02] MEDS: CHOLECALCIFEROL 2000 UNIT PO SCH (09:31)
[2017-06-02] MEDS: TURMERIC 500 MG PO SCH (18:33)
[2017-06-02] MEDS: MAGNESIUM OXIDE PO SCH (18:33)
[2017-06-02] MEDS: CALCIUM CARBONATE PO SCH (18:33)
[2017-06-02] MEDS: [UNRECOGNIZED DRUG - OTHER] PO SCH (18:33)
[2017-06-02] MEDS: ZINC GLUCONATE PO SCH (18:33)
[2017-06-03] MEDS: LEVOTHYROXINE PO SCH (06:06)
[2017-06-03] MEDS: CHOLECALCIFEROL 2000 UNIT PO SCH (09:59)
[2017-06-03] MEDS: UBIDECARENONE 200 MG PO SCH (09:59)
[2017-06-03] MEDS: Betamethasone Dipropionate/Clotrimazole 0.05-1% Crm 15 GM Tube TOP SCH ×2 (09:59→23:28)
[2017-06-03] MEDS: PRADAXA 150 MG PO SCH ×2 (10:00→18:27)
[2017-06-03] MEDS: Acetaminophen 500 MG Tab PO SCH (10:00)
[2017-06-03] MEDS: [UNRECOGNIZED DRUG - OTHER] TOP PRN (10:01)
[2017-06-03] MEDS: [UNRECOGNIZED DRUG - OTHER] PO SCH (18:26)
[2017-06-03] MEDS: ZINC GLUCONATE PO SCH (18:27)
[2017-06-03] MEDS: CALCIUM CARBONATE PO SCH (18:27)
[2017-06-03] MEDS: TURMERIC 500 MG PO SCH (18:27)
[2017-06-03] MEDS: MAGNESIUM OXIDE PO SCH (18:27)
[2017-06-04] MEDS: LEVOTHYROXINE PO SCH (06:22)
[2017-06-04] MEDS: Acetaminophen 500 MG Tab PO SCH (09:53)
[2017-06-04] MEDS: CHOLECALCIFEROL 2000 UNIT PO SCH (09:54)
[2017-06-04] MEDS: PRADAXA 150 MG PO SCH ×2 (09:54→18:50)
[2017-06-04] MEDS: UBIDECARENONE 200 MG PO SCH (09:54)
[2017-06-04] MEDS: Betamethasone Dipropionate/Clotrimazole 0.05-1% Crm 15 GM Tube TOP SCH ×2 (09:55→23:46)
[2017-06-04] MEDS: MAGNESIUM OXIDE PO SCH (18:50)
[2017-06-04] MEDS: [UNRECOGNIZED DRUG - OTHER] PO SCH (18:50)
[2017-06-04] MEDS: CALCIUM CARBONATE PO SCH (18:50)
[2017-06-04] MEDS: TURMERIC 500 MG PO SCH (18:50)
[2017-06-04] MEDS: ZINC GLUCONATE PO SCH (18:50)
[2017-06-05] MEDS: LEVOTHYROXINE PO SCH (06:47)
[2017-06-05] MEDS: CHOLECALCIFEROL 2000 UNIT PO SCH (09:39)
[2017-06-05] MEDS: UBIDECARENONE 200 MG PO SCH (09:39)
[2017-06-05] MEDS: Acetaminophen 500 MG Tab PO SCH (09:40)
[2017-06-05] MEDS: PRADAXA 150 MG PO SCH ×2 (09:41→18:13)
[2017-06-05] MEDS: Betamethasone Dipropionate/Clotrimazole 0.05-1% Crm 15 GM Tube TOP SCH ×2 (09:41→23:33)
[2017-06-05] MEDS: ZINC GLUCONATE PO SCH (18:13)
[2017-06-05] MEDS: MAGNESIUM OXIDE PO SCH (18:13)
[2017-06-05] MEDS: [UNRECOGNIZED DRUG - OTHER] PO SCH (18:13)
[2017-06-05] MEDS: CALCIUM CARBONATE PO SCH (18:13)
[2017-06-05] MEDS: TURMERIC 500 MG PO SCH (18:13)
[2017-06-05] MEDS: [UNRECOGNIZED DRUG - OTHER] TOP PRN (23:34)
[2017-06-05] MEDS: Menthol/Methyl Salicylate 85 GM Tube TOP PRN (23:34)
[2017-06-06] MEDS: Acetaminophen 500 MG Tab PO SCH (09:50)
[2017-06-06] MEDS: Betamethasone Dipropionate/Clotrimazole 0.05-1% Crm 15 GM Tube TOP SCH ×2 (09:51→23:40)
[2017-06-06] MEDS: PRADAXA 150 MG PO SCH ×2 (09:51→18:21)
[2017-06-06] MEDS: UBIDECARENONE 200 MG PO SCH (09:51)
[2017-06-06] MEDS: CHOLECALCIFEROL 2000 UNIT PO SCH (09:51)
[2017-06-06] MEDS: CALCIUM CARBONATE PO SCH (18:21)
[2017-06-06] MEDS: TURMERIC 500 MG PO SCH (18:21)
[2017-06-06] MEDS: MAGNESIUM OXIDE PO SCH (18:21)
[2017-06-06] MEDS: [UNRECOGNIZED DRUG - OTHER] PO SCH (18:21)
[2017-06-06] MEDS: ZINC GLUCONATE PO SCH (18:21)
[2017-06-06] MEDS: Menthol/Methyl Salicylate 85 GM Tube TOP PRN (23:41)
[2017-06-06] MEDS: [UNRECOGNIZED DRUG - OTHER] TOP PRN (23:41)
[2017-06-07] MEDS: LEVOTHYROXINE PO SCH (08:01)
[2017-06-07] MEDS: UBIDECARENONE 200 MG PO SCH (09:43)
[2017-06-07] MEDS: CHOLECALCIFEROL 2000 UNIT PO SCH (09:43)
[2017-06-07] MEDS: Acetaminophen 500 MG Tab PO SCH (09:43)
[2017-06-07] MEDS: Betamethasone Dipropionate/Clotrimazole 0.05-1% Crm 15 GM Tube TOP SCH ×2 (09:44→23:40)
[2017-06-07] MEDS: PRADAXA 150 MG PO SCH ×2 (09:44→18:18)
[2017-06-07] MEDS: Menthol/Methyl Salicylate 85 GM Tube TOP PRN ×2 (17:28→23:41)
[2017-06-07] MEDS: [UNRECOGNIZED DRUG - OTHER] PO SCH (18:18)
[2017-06-07] MEDS: ZINC GLUCONATE PO SCH (18:19)
[2017-06-07] MEDS: CALCIUM CARBONATE PO SCH (18:19)
[2017-06-07] MEDS: TURMERIC 500 MG PO SCH (18:19)
[2017-06-07] MEDS: MAGNESIUM OXIDE PO SCH (18:19)
[2017-06-07] MEDS: PREMARIN VAGINAL SCH (23:40)
[2017-06-07] MEDS: [UNRECOGNIZED DRUG - OTHER] TOP PRN (23:41)
[2017-06-08] MEDS: LEVOTHYROXINE PO SCH (06:25)
[2017-06-08] MEDS: Acetaminophen 500 MG Tab PO SCH (09:41)
[2017-06-08] MEDS: UBIDECARENONE 200 MG PO SCH (09:42)
[2017-06-08] MEDS: CHOLECALCIFEROL 2000 UNIT PO SCH (09:42)
[2017-06-08] MEDS: Betamethasone Dipropionate/Clotrimazole 0.05-1% Crm 15 GM Tube TOP SCH ×2 (09:42→23:38)
[2017-06-08] MEDS: PRADAXA 150 MG PO SCH ×2 (09:42→18:17)
[2017-06-08] MEDS: TURMERIC 500 MG PO SCH (18:18)
[2017-06-08] MEDS: MAGNESIUM OXIDE PO SCH (18:18)
[2017-06-08] MEDS: CALCIUM CARBONATE PO SCH (18:18)
[2017-06-08] MEDS: ZINC GLUCONATE PO SCH (18:18)
[2017-06-08] MEDS: [UNRECOGNIZED DRUG - OTHER] PO SCH (18:18)
[2017-06-08] MEDS: Menthol/Methyl Salicylate 85 GM Tube TOP PRN (23:38)
[2017-06-08] MEDS: [UNRECOGNIZED DRUG - OTHER] TOP PRN (23:39)
[2017-06-09] MEDS: LEVOTHYROXINE PO SCH (06:34)
[2017-06-09] MEDS: CHOLECALCIFEROL 2000 UNIT PO SCH (10:16)
[2017-06-09] MEDS: UBIDECARENONE 200 MG PO SCH (10:16)
[2017-06-09] MEDS: Acetaminophen 500 MG Tab PO SCH (10:17)
[2017-06-09] MEDS: PRADAXA 150 MG PO SCH ×2 (10:17→18:02)
[2017-06-09] MEDS: Betamethasone Dipropionate/Clotrimazole 0.05-1% Crm 15 GM Tube TOP SCH (10:18)
[2017-06-09] MEDS: CALCIUM CARBONATE PO SCH (18:02)
[2017-06-09] MEDS: MAGNESIUM OXIDE PO SCH (18:02)
[2017-06-09] MEDS: TURMERIC 500 MG PO SCH (18:02)
[2017-06-09] MEDS: ZINC GLUCONATE PO SCH (18:02)
[2017-06-09] MEDS: [UNRECOGNIZED DRUG - OTHER] PO SCH (18:03)
[2017-06-10] MEDS: LEVOTHYROXINE PO SCH (06:07)
[2017-06-10 07:12] LABS: CHLORIDE,CL 105 mmol/L (98-107); SODIUM,NA 143 mmol/L (136-145)
[2017-06-10] MEDS: Acetaminophen 500 MG Tab PO SCH (10:57)
[2017-06-10] MEDS: PRADAXA 150 MG PO SCH ×2 (10:57→18:04)
[2017-06-10] MEDS: Betamethasone Dipropionate/Clotrimazole 0.05-1% Crm 15 GM Tube TOP SCH (10:58)
[2017-06-10] MEDS: UBIDECARENONE 200 MG PO SCH (10:58)
[2017-06-10] MEDS: CHOLECALCIFEROL 2000 UNIT PO SCH (10:58)
[2017-06-10] MEDS: [UNRECOGNIZED DRUG - OTHER] PO SCH (18:02)
[2017-06-10] MEDS: CALCIUM CARBONATE PO SCH (18:03)
[2017-06-10] MEDS: MAGNESIUM OXIDE PO SCH (18:03)
[2017-06-10] MEDS: TURMERIC 500 MG PO SCH (18:03)
[2017-06-10] MEDS: ZINC GLUCONATE PO SCH (18:03)
[2017-06-11] MEDS: LEVOTHYROXINE PO SCH (06:10)
[2017-06-11] MEDS: PRADAXA 150 MG PO SCH ×2 (09:34→18:32)
[2017-06-11] MEDS: Acetaminophen 500 MG Tab PO SCH (09:34)
[2017-06-11] MEDS: CHOLECALCIFEROL 2000 UNIT PO SCH (09:35)
[2017-06-11] MEDS: UBIDECARENONE 200 MG PO SCH (09:35)
[2017-06-11] MEDS: Betamethasone Dipropionate/Clotrimazole 0.05-1% Crm 15 GM Tube TOP SCH (09:35)
[2017-06-11] MEDS: [UNRECOGNIZED DRUG - OTHER] PO SCH (18:31)
[2017-06-11] MEDS: CALCIUM CARBONATE PO SCH (18:32)
[2017-06-11] MEDS: ZINC GLUCONATE PO SCH (18:32)
[2017-06-11] MEDS: MAGNESIUM OXIDE PO SCH (18:32)
[2017-06-11] MEDS: TURMERIC 500 MG PO SCH (18:32)
[2017-06-12] MEDS: [UNRECOGNIZED DRUG - OTHER] TOP PRN ×3 (04:17→21:45)
[2017-06-12] MEDS: Menthol/Methyl Salicylate 85 GM Tube TOP PRN ×2 (04:18→21:46)
[2017-06-12] MEDS: LEVOTHYROXINE PO SCH (07:32)
[2017-06-12] MEDS: PRADAXA 150 MG PO SCH ×2 (10:25→18:09)
[2017-06-12] MEDS: CHOLECALCIFEROL 2000 UNIT PO SCH (10:26)
[2017-06-12] MEDS: UBIDECARENONE 200 MG PO SCH (10:26)
[2017-06-12] MEDS: Acetaminophen 500 MG Tab PO SCH (10:27)
[2017-06-12] MEDS: Betamethasone Dipropionate/Clotrimazole 0.05-1% Crm 15 GM Tube TOP SCH (10:27)
[2017-06-12] MEDS: ZINC GLUCONATE PO SCH (18:10)
[2017-06-12] MEDS: CALCIUM CARBONATE PO SCH (18:10)
[2017-06-12] MEDS: [UNRECOGNIZED DRUG - OTHER] PO SCH (18:10)
[2017-06-12] MEDS: MAGNESIUM OXIDE PO SCH (18:10)
[2017-06-12] MEDS: TURMERIC 500 MG PO SCH (18:10)
[2017-06-12] MEDS: DEXTRAN EYEBOTH PRN (21:45)
[2017-06-12] MEDS: HYPROMELLOSE EYEBOTH PRN (21:45)
[2017-06-13] MEDS: Betamethasone Dipropionate/Clotrimazole 0.05-1% Crm 15 GM Tube TOP SCH (10:18)
[2017-06-13] MEDS: UBIDECARENONE 200 MG PO SCH (10:18)
[2017-06-13] MEDS: Acetaminophen 500 MG Tab PO SCH (10:19)
[2017-06-13] MEDS: PRADAXA 150 MG PO SCH ×2 (10:19→18:00)
[2017-06-13] MEDS: CHOLECALCIFEROL 2000 UNIT PO SCH (10:19)
[2017-06-13] MEDS: [UNRECOGNIZED DRUG - OTHER] TOP PRN (10:20)
[2017-06-13] MEDS: MAGNESIUM OXIDE PO SCH (18:00)
[2017-06-13] MEDS: CALCIUM CARBONATE PO SCH (18:00)
[2017-06-13] MEDS: ZINC GLUCONATE PO SCH (18:00)
[2017-06-13] MEDS: [UNRECOGNIZED DRUG - OTHER] PO SCH (18:00)
[2017-06-13] MEDS: TURMERIC 500 MG PO SCH (18:01)
[2017-06-14] MEDS: [UNRECOGNIZED DRUG - OTHER] TOP PRN ×3 (00:11→23:40)
[2017-06-14] MEDS: Menthol/Methyl Salicylate 85 GM Tube TOP PRN ×3 (00:11→23:40)
[2017-06-14] MEDS: LEVOTHYROXINE PO SCH (06:22)
[2017-06-14] MEDS: UBIDECARENONE 200 MG PO SCH (09:47)
[2017-06-14] MEDS: PRADAXA 150 MG PO SCH ×2 (09:47→18:55)
[2017-06-14] MEDS: CHOLECALCIFEROL 2000 UNIT PO SCH (09:47)
[2017-06-14] MEDS: Acetaminophen 500 MG Tab PO SCH (09:48)
[2017-06-14] MEDS: Betamethasone Dipropionate/Clotrimazole 0.05-1% Crm 15 GM Tube TOP SCH (09:48)
[2017-06-14] MEDS: [UNRECOGNIZED DRUG - OTHER] PO SCH (18:56)
[2017-06-14] MEDS: CALCIUM CARBONATE PO SCH (18:56)
[2017-06-14] MEDS: TURMERIC 500 MG PO SCH (18:56)
[2017-06-14] MEDS: ZINC GLUCONATE PO SCH (18:56)
[2017-06-14] MEDS: MAGNESIUM OXIDE PO SCH (18:56)
[2017-06-14] MEDS: HYPROMELLOSE EYEBOTH PRN (18:57)
[2017-06-14] MEDS: DEXTRAN EYEBOTH PRN (18:57)
[2017-06-14] MEDS: PREMARIN VAGINAL SCH (23:39)
[2017-06-15] MEDS: LEVOTHYROXINE PO SCH (07:41)
--- NOTE | 2017-06-15 09:17 | PN ---
Progress Note for EMILY SHEETS Date: 06/13/2017 Room #: SUBJECTIVE: This is an 87-year-old seen today for swing bed rounds. She has been having some more vaginal and pepper irritation. She has been seen by the trucking contractor. They have adjusted her cream. She states it is much better now but she still gets occasional discomfort. Otherwise, she has no major concerns. She has no chest pain. No trouble breathing. OBJECTIVE: VITAL SIGNS: Her temperature is 97.5, pulse 78, blood pressure 131/66, respiratory rate 16, O2 93 on room air. GENERAL: She is in no acute distress. HEART: Regularly irregular with murmur. RESPIRATORY: Lungs sounds are clear to auscultation bilaterally without crackles or wheezes. EXTREMITIES: Warm and dry. No edema. MENTAL STATUS: She is alert. She is orientated x3. LABORATORY DATA: Lab work that she had on 06/09 was reviewed and did show her to have stable hemoglobin at 12.9, white count 4.7, platelets 133. Sodium 143, potassium 4.3, chloride 105, bicarb 29, BUN 18, creatinine 0.8. TSH 2.4, calcium 9.3. ASSESSMENT AND PLAN: 1. Atrial fibrillation, on Pradaxa. For stroke prevention, continue with the same. 2. Impaired mobility due to osteoarthritis, severe in her knees. She will continue with swing bed cares. 3. Essential hypertension, controlled. 4. Hypothyroidism, on treatment. 5. Chronic vulvar and vaginal irritation, on creams as directed by Gynecology. The plan at this point is the patient will continue swing bed cares. We will probably not need to repeat any lab work until next May again unless she develops problems in the interim. MKA: 06/13/2017 13:17:29 MODL: 06/13/2017 13:40:03 /[id number]
[2017-06-15] MEDS: PRADAXA 150 MG PO SCH ×2 (10:24→18:31)
[2017-06-15] MEDS: Betamethasone Dipropionate/Clotrimazole 0.05-1% Crm 15 GM Tube TOP SCH (10:25)
[2017-06-15] MEDS: UBIDECARENONE 200 MG PO SCH (10:25)
[2017-06-15] MEDS: CHOLECALCIFEROL 2000 UNIT PO SCH (10:25)
[2017-06-15] MEDS: Acetaminophen 500 MG Tab PO SCH (10:26)
[2017-06-15] MEDS: [UNRECOGNIZED DRUG - OTHER] PO SCH (18:31)
[2017-06-15] MEDS: ZINC GLUCONATE PO SCH (18:32)
[2017-06-15] MEDS: MAGNESIUM OXIDE PO SCH (18:32)
[2017-06-15] MEDS: CALCIUM CARBONATE PO SCH (18:32)
[2017-06-15] MEDS: TURMERIC 500 MG PO SCH (18:32)
[2017-06-16] MEDS: LEVOTHYROXINE PO SCH (06:15)
[2017-06-16] MEDS: Betamethasone Dipropionate/Clotrimazole 0.05-1% Crm 15 GM Tube TOP SCH (10:29)
[2017-06-16] MEDS: PRADAXA 150 MG PO SCH ×2 (10:30→18:23)
[2017-06-16] MEDS: UBIDECARENONE 200 MG PO SCH (10:30)
[2017-06-16] MEDS: CHOLECALCIFEROL 2000 UNIT PO SCH (10:31)
[2017-06-16] MEDS: Acetaminophen 500 MG Tab PO SCH (10:32)
[2017-06-16] MEDS: [UNRECOGNIZED DRUG - OTHER] PO SCH (18:24)
[2017-06-16] MEDS: MAGNESIUM OXIDE PO SCH (18:24)
[2017-06-16] MEDS: ZINC GLUCONATE PO SCH (18:24)
[2017-06-16] MEDS: TURMERIC 500 MG PO SCH (18:24)
[2017-06-16] MEDS: CALCIUM CARBONATE PO SCH (18:24)
[2017-06-17] MEDS: LEVOTHYROXINE PO SCH (06:15)
[2017-06-17] MEDS: CHOLECALCIFEROL 2000 UNIT PO SCH (10:21)
[2017-06-17] MEDS: Betamethasone Dipropionate/Clotrimazole 0.05-1% Crm 15 GM Tube TOP SCH (10:21)
[2017-06-17] MEDS: PRADAXA 150 MG PO SCH ×2 (10:23→18:23)
[2017-06-17] MEDS: Acetaminophen 500 MG Tab PO SCH (10:24)
[2017-06-17] MEDS: UBIDECARENONE 200 MG PO SCH (10:25)
[2017-06-17] MEDS: [UNRECOGNIZED DRUG - OTHER] PO SCH (18:22)
[2017-06-17] MEDS: TURMERIC 500 MG PO SCH (18:23)
[2017-06-17] MEDS: MAGNESIUM OXIDE PO SCH (18:23)
[2017-06-17] MEDS: ZINC GLUCONATE PO SCH (18:23)
[2017-06-17] MEDS: CALCIUM CARBONATE PO SCH (18:23)
[2017-06-18] MEDS: LEVOTHYROXINE PO SCH (06:08)
[2017-06-18] MEDS: PRADAXA 150 MG PO SCH ×2 (10:24→18:27)
[2017-06-18] MEDS: UBIDECARENONE 200 MG PO SCH (10:25)
[2017-06-18] MEDS: CHOLECALCIFEROL 2000 UNIT PO SCH (10:25)
[2017-06-18] MEDS: Betamethasone Dipropionate/Clotrimazole 0.05-1% Crm 15 GM Tube TOP SCH (10:26)
[2017-06-18] MEDS: Acetaminophen 500 MG Tab PO SCH (10:26)
[2017-06-18] MEDS: [UNRECOGNIZED DRUG - OTHER] PO SCH (18:27)
[2017-06-18] MEDS: MAGNESIUM OXIDE PO SCH (18:27)
[2017-06-18] MEDS: ZINC GLUCONATE PO SCH (18:27)
[2017-06-18] MEDS: CALCIUM CARBONATE PO SCH (18:27)
[2017-06-18] MEDS: TURMERIC 500 MG PO SCH (18:28)
[2017-06-18] MEDS: Menthol/Methyl Salicylate 85 GM Tube TOP PRN (22:55)
[2017-06-19] MEDS: LEVOTHYROXINE PO SCH (06:29)
[2017-06-19] MEDS: UBIDECARENONE 200 MG PO SCH (09:40)
[2017-06-19] MEDS: PRADAXA 150 MG PO SCH ×2 (09:40→18:20)
[2017-06-19] MEDS: CHOLECALCIFEROL 2000 UNIT PO SCH (09:41)
[2017-06-19] MEDS: Acetaminophen 500 MG Tab PO SCH (09:41)
[2017-06-19] MEDS: Betamethasone Dipropionate/Clotrimazole 0.05-1% Crm 15 GM Tube TOP SCH (09:42)
[2017-06-19] MEDS: CALCIUM CARBONATE PO SCH (18:20)
[2017-06-19] MEDS: ZINC GLUCONATE PO SCH (18:20)
[2017-06-19] MEDS: MAGNESIUM OXIDE PO SCH (18:20)
[2017-06-19] MEDS: TURMERIC 500 MG PO SCH (18:20)
[2017-06-19] MEDS: [UNRECOGNIZED DRUG - OTHER] PO SCH (18:20)
[2017-06-20] MEDS: PRADAXA 150 MG PO SCH ×2 (09:48→18:21)
[2017-06-20] MEDS: Acetaminophen 500 MG Tab PO SCH (09:48)
[2017-06-20] MEDS: CHOLECALCIFEROL 2000 UNIT PO SCH (09:49)
[2017-06-20] MEDS: Betamethasone Dipropionate/Clotrimazole 0.05-1% Crm 15 GM Tube TOP SCH (09:49)
[2017-06-20] MEDS: UBIDECARENONE 200 MG PO SCH (09:49)
[2017-06-20] MEDS: ZINC GLUCONATE PO SCH (18:20)
[2017-06-20] MEDS: TURMERIC 500 MG PO SCH (18:20)
[2017-06-20] MEDS: CALCIUM CARBONATE PO SCH (18:20)
[2017-06-20] MEDS: MAGNESIUM OXIDE PO SCH (18:20)
[2017-06-20] MEDS: [UNRECOGNIZED DRUG - OTHER] PO SCH (18:20)
[2017-06-21] MEDS: LEVOTHYROXINE PO SCH (06:19)
[2017-06-21] MEDS: UBIDECARENONE 200 MG PO SCH (09:34)
[2017-06-21] MEDS: Acetaminophen 500 MG Tab PO SCH (09:35)
[2017-06-21] MEDS: PRADAXA 150 MG PO SCH ×2 (09:35→18:29)
[2017-06-21] MEDS: CHOLECALCIFEROL 2000 UNIT PO SCH (09:35)
[2017-06-21] MEDS: Betamethasone Dipropionate/Clotrimazole 0.05-1% Crm 15 GM Tube TOP SCH (09:36)
[2017-06-21] MEDS: ZINC GLUCONATE PO SCH (18:29)
[2017-06-21] MEDS: TURMERIC 500 MG PO SCH (18:29)
[2017-06-21] MEDS: MAGNESIUM OXIDE PO SCH (18:29)
[2017-06-21] MEDS: [UNRECOGNIZED DRUG - OTHER] PO SCH (18:29)
[2017-06-21] MEDS: CALCIUM CARBONATE PO SCH (18:29)
[2017-06-21] MEDS: PREMARIN VAGINAL SCH (23:08)
[2017-06-21] MEDS: Menthol/Methyl Salicylate 85 GM Tube TOP PRN (23:23)
[2017-06-22] MEDS: LEVOTHYROXINE PO SCH (06:06)
[2017-06-22] MEDS: PRADAXA 150 MG PO SCH ×2 (10:45→18:03)
[2017-06-22] MEDS: Betamethasone Dipropionate/Clotrimazole 0.05-1% Crm 15 GM Tube TOP SCH (10:45)
[2017-06-22] MEDS: CHOLECALCIFEROL 2000 UNIT PO SCH (10:46)
[2017-06-22] MEDS: UBIDECARENONE 200 MG PO SCH (10:46)
[2017-06-22] MEDS: Acetaminophen 500 MG Tab PO SCH (10:46)
[2017-06-22] MEDS: [UNRECOGNIZED DRUG - OTHER] TOP PRN (10:47)
[2017-06-22] MEDS: CALCIUM CARBONATE PO SCH (18:02)
[2017-06-22] MEDS: MAGNESIUM OXIDE PO SCH (18:02)
[2017-06-22] MEDS: ZINC GLUCONATE PO SCH (18:02)
[2017-06-22] MEDS: [UNRECOGNIZED DRUG - OTHER] PO SCH (18:03)
[2017-06-22] MEDS: TURMERIC 500 MG PO SCH (18:03)
[2017-06-23] MEDS: LEVOTHYROXINE PO SCH (06:01)
[2017-06-23] MEDS: PRADAXA 150 MG PO SCH ×2 (09:22→18:17)
[2017-06-23] MEDS: UBIDECARENONE 200 MG PO SCH (09:22)
[2017-06-23] MEDS: CHOLECALCIFEROL 2000 UNIT PO SCH (09:22)
[2017-06-23] MEDS: Betamethasone Dipropionate/Clotrimazole 0.05-1% Crm 15 GM Tube TOP SCH (09:23)
[2017-06-23] MEDS: Acetaminophen 500 MG Tab PO SCH (09:23)
[2017-06-23] MEDS: TURMERIC 500 MG PO SCH (18:17)
[2017-06-23] MEDS: [UNRECOGNIZED DRUG - OTHER] PO SCH (18:17)
[2017-06-23] MEDS: ZINC GLUCONATE PO SCH (18:17)
[2017-06-23] MEDS: DEXTRAN EYEBOTH PRN (18:17)
[2017-06-23] MEDS: CALCIUM CARBONATE PO SCH (18:17)
[2017-06-23] MEDS: MAGNESIUM OXIDE PO SCH (18:17)
[2017-06-23] MEDS: HYPROMELLOSE EYEBOTH PRN (18:17)
[2017-06-24] MEDS: LEVOTHYROXINE PO SCH (06:17)
[2017-06-24] MEDS: Acetaminophen 500 MG Tab PO SCH (09:46)
[2017-06-24] MEDS: CHOLECALCIFEROL 2000 UNIT PO SCH (09:46)
[2017-06-24] MEDS: UBIDECARENONE 200 MG PO SCH (09:46)
[2017-06-24] MEDS: PRADAXA 150 MG PO SCH ×2 (09:47→18:06)
[2017-06-24] MEDS: CALCIUM CARBONATE PO SCH (18:06)
[2017-06-24] MEDS: MAGNESIUM OXIDE PO SCH (18:06)
[2017-06-24] MEDS: TURMERIC 500 MG PO SCH (18:06)
[2017-06-24] MEDS: ZINC GLUCONATE PO SCH (18:06)
[2017-06-24] MEDS: [UNRECOGNIZED DRUG - OTHER] PO SCH (18:06)
[2017-06-25] MEDS: LEVOTHYROXINE PO SCH (06:12)
[2017-06-25] MEDS: CHOLECALCIFEROL 2000 UNIT PO SCH (11:05)
[2017-06-25] MEDS: PRADAXA 150 MG PO SCH ×2 (11:05→18:31)
[2017-06-25] MEDS: UBIDECARENONE 200 MG PO SCH (11:05)
[2017-06-25] MEDS: Acetaminophen 500 MG Tab PO SCH (11:06)
[2017-06-25] MEDS: MAGNESIUM OXIDE PO SCH (18:32)
[2017-06-25] MEDS: CALCIUM CARBONATE PO SCH (18:32)
[2017-06-25] MEDS: TURMERIC 500 MG PO SCH (18:32)
[2017-06-25] MEDS: [UNRECOGNIZED DRUG - OTHER] PO SCH (18:32)
[2017-06-25] MEDS: ZINC GLUCONATE PO SCH (18:32)
[2017-06-26] MEDS: LEVOTHYROXINE PO SCH (06:11)
[2017-06-26] MEDS: CHOLECALCIFEROL 2000 UNIT PO SCH (10:48)
[2017-06-26] MEDS: PRADAXA 150 MG PO SCH ×2 (10:48→17:59)
[2017-06-26] MEDS: UBIDECARENONE 200 MG PO SCH (10:48)
[2017-06-26] MEDS: Acetaminophen 500 MG Tab PO SCH (10:49)
[2017-06-26] MEDS: HYPROMELLOSE EYEBOTH PRN (10:51)
[2017-06-26] MEDS: DEXTRAN EYEBOTH PRN (10:51)
[2017-06-26] MEDS: TURMERIC 500 MG PO SCH (17:59)
[2017-06-26] MEDS: CALCIUM CARBONATE PO SCH (17:59)
[2017-06-26] MEDS: ZINC GLUCONATE PO SCH (17:59)
[2017-06-26] MEDS: [UNRECOGNIZED DRUG - OTHER] PO SCH (17:59)
[2017-06-26] MEDS: MAGNESIUM OXIDE PO SCH (17:59)
[2017-06-27] MEDS: UBIDECARENONE 200 MG PO SCH (09:55)
[2017-06-27] MEDS: PRADAXA 150 MG PO SCH ×2 (09:55→18:00)
[2017-06-27] MEDS: CHOLECALCIFEROL 2000 UNIT PO SCH (09:55)
[2017-06-27] MEDS: Acetaminophen 500 MG Tab PO SCH (09:56)
[2017-06-27] MEDS: [UNRECOGNIZED DRUG - OTHER] TOP PRN (09:56)
[2017-06-27] MEDS: HYPROMELLOSE EYEBOTH PRN (09:57)
[2017-06-27] MEDS: DEXTRAN EYEBOTH PRN (09:57)
[2017-06-27] MEDS: TURMERIC 500 MG PO SCH (18:00)
[2017-06-27] MEDS: [UNRECOGNIZED DRUG - OTHER] PO SCH (18:00)
[2017-06-27] MEDS: CALCIUM CARBONATE PO SCH (18:01)
[2017-06-27] MEDS: ZINC GLUCONATE PO SCH (18:01)
[2017-06-27] MEDS: MAGNESIUM OXIDE PO SCH (18:01)
[2017-06-28] MEDS: LEVOTHYROXINE PO SCH (06:11)
[2017-06-28] MEDS: CHOLECALCIFEROL 2000 UNIT PO SCH (09:21)
[2017-06-28] MEDS: PRADAXA 150 MG PO SCH ×2 (09:21→17:59)
[2017-06-28] MEDS: UBIDECARENONE 200 MG PO SCH (09:21)
[2017-06-28] MEDS: Acetaminophen 500 MG Tab PO SCH (09:22)
[2017-06-28] MEDS: HYPROMELLOSE EYEBOTH PRN (09:23)
[2017-06-28] MEDS: [UNRECOGNIZED DRUG - OTHER] TOP PRN (09:23)
[2017-06-28] MEDS: DEXTRAN EYEBOTH PRN (09:23)
[2017-06-28] MEDS: MAGNESIUM OXIDE PO SCH (17:59)
[2017-06-28] MEDS: ZINC GLUCONATE PO SCH (17:59)
[2017-06-28] MEDS: CALCIUM CARBONATE PO SCH (17:59)
[2017-06-28] MEDS: TURMERIC 500 MG PO SCH (17:59)
[2017-06-28] MEDS: [UNRECOGNIZED DRUG - OTHER] PO SCH (17:59)
[2017-06-29] MEDS: PREMARIN VAGINAL SCH (00:33)
[2017-06-29] MEDS: [UNRECOGNIZED DRUG - OTHER] TOP PRN (00:35)
[2017-06-29] MEDS: Menthol/Methyl Salicylate 85 GM Tube TOP PRN (00:37)
[2017-06-29] MEDS: LEVOTHYROXINE PO SCH (08:40)
[2017-06-29] MEDS: PRADAXA 150 MG PO SCH ×2 (09:38→18:21)
[2017-06-29] MEDS: Acetaminophen 500 MG Tab PO SCH (09:38)
[2017-06-29] MEDS: UBIDECARENONE 200 MG PO SCH (09:39)
[2017-06-29] MEDS: CHOLECALCIFEROL 2000 UNIT PO SCH (09:39)
[2017-06-29] MEDS: TURMERIC 500 MG PO SCH (18:21)
[2017-06-29] MEDS: CALCIUM CARBONATE PO SCH (18:22)
[2017-06-29] MEDS: [UNRECOGNIZED DRUG - OTHER] PO SCH (18:22)
[2017-06-29] MEDS: ZINC GLUCONATE PO SCH (18:22)
[2017-06-29] MEDS: MAGNESIUM OXIDE PO SCH (18:22)
[2017-06-30] MEDS: LEVOTHYROXINE PO SCH (06:34)
[2017-06-30] MEDS: PRADAXA 150 MG PO SCH ×2 (09:57→18:43)
[2017-06-30] MEDS: Acetaminophen 500 MG Tab PO SCH (09:58)
[2017-06-30] MEDS: UBIDECARENONE 200 MG PO SCH (09:59)
[2017-06-30] MEDS: CHOLECALCIFEROL 2000 UNIT PO SCH (09:59)
[2017-06-30] MEDS: TURMERIC 500 MG PO SCH (18:43)
[2017-06-30] MEDS: [UNRECOGNIZED DRUG - OTHER] PO SCH (18:43)
[2017-06-30] MEDS: ZINC GLUCONATE PO SCH (18:44)
[2017-06-30] MEDS: CALCIUM CARBONATE PO SCH (18:44)
[2017-06-30] MEDS: MAGNESIUM OXIDE PO SCH (18:44)
[2017-07-01] MEDS: LEVOTHYROXINE PO SCH (06:29)
[2017-07-01] MEDS: CHOLECALCIFEROL 2000 UNIT PO SCH (10:52)
[2017-07-01] MEDS: PRADAXA 150 MG PO SCH ×2 (10:53→20:21)
[2017-07-01] MEDS: Acetaminophen 500 MG Tab PO SCH (10:53)
[2017-07-01] MEDS: UBIDECARENONE 200 MG PO SCH (10:54)
[2017-07-01] MEDS: TURMERIC 500 MG PO SCH (20:22)
[2017-07-01] MEDS: [UNRECOGNIZED DRUG - OTHER] PO SCH (20:22)
[2017-07-01] MEDS: CALCIUM CARBONATE PO SCH (20:23)
[2017-07-01] MEDS: ZINC GLUCONATE PO SCH (20:23)
[2017-07-01] MEDS: MAGNESIUM OXIDE PO SCH (20:23)
[2017-07-02] MEDS: LEVOTHYROXINE PO SCH (06:07)
[2017-07-02] MEDS: CHOLECALCIFEROL 2000 UNIT PO SCH (09:32)
[2017-07-02] MEDS: PRADAXA 150 MG PO SCH ×2 (09:32→17:59)
[2017-07-02] MEDS: UBIDECARENONE 200 MG PO SCH (09:32)
[2017-07-02] MEDS: Acetaminophen 500 MG Tab PO SCH (09:33)
[2017-07-02] MEDS: [UNRECOGNIZED DRUG - OTHER] TOP PRN (09:35)
[2017-07-02] MEDS: MAGNESIUM OXIDE PO SCH (17:59)
[2017-07-02] MEDS: CALCIUM CARBONATE PO SCH (17:59)
[2017-07-02] MEDS: TURMERIC 500 MG PO SCH (17:59)
[2017-07-02] MEDS: [UNRECOGNIZED DRUG - OTHER] PO SCH (17:59)
[2017-07-02] MEDS: ZINC GLUCONATE PO SCH (17:59)
[2017-07-03] MEDS: LEVOTHYROXINE PO SCH (08:31)
[2017-07-03] MEDS: CHOLECALCIFEROL 2000 UNIT PO SCH (11:10)
[2017-07-03] MEDS: PRADAXA 150 MG PO SCH ×2 (11:10→18:57)
[2017-07-03] MEDS: Acetaminophen 500 MG Tab PO SCH (11:11)
[2017-07-03] MEDS: UBIDECARENONE 200 MG PO SCH (11:11)
[2017-07-03] MEDS: HYPROMELLOSE EYEBOTH PRN (11:15)
[2017-07-03] MEDS: DEXTRAN EYEBOTH PRN (11:15)
[2017-07-03] MEDS: ZINC GLUCONATE PO SCH (18:57)
[2017-07-03] MEDS: MAGNESIUM OXIDE PO SCH (18:57)
[2017-07-03] MEDS: CALCIUM CARBONATE PO SCH (18:57)
[2017-07-03] MEDS: TURMERIC 500 MG PO SCH (18:58)
[2017-07-03] MEDS: [UNRECOGNIZED DRUG - OTHER] PO SCH (18:58)
[2017-07-03] MEDS: Menthol/Methyl Salicylate 85 GM Tube TOP PRN (23:40)
[2017-07-03] MEDS: [UNRECOGNIZED DRUG - OTHER] TOP PRN (23:40)
[2017-07-03] MEDS: Menthol/Zinc Oxide Ointment 3.5 GM Tube TOP PRN (23:41)
[2017-07-03] MEDS: [UNRECOGNIZED DRUG - OTHER] TOP PRN (23:42)
[2017-07-04] MEDS: CHOLECALCIFEROL 2000 UNIT PO SCH (10:35)
[2017-07-04] MEDS: UBIDECARENONE 200 MG PO SCH (10:36)
[2017-07-04] MEDS: PRADAXA 150 MG PO SCH ×2 (10:36→18:29)
[2017-07-04] MEDS: Acetaminophen 500 MG Tab PO SCH (10:37)
[2017-07-04] MEDS: MAGNESIUM OXIDE PO SCH (18:29)
[2017-07-04] MEDS: ZINC GLUCONATE PO SCH (18:29)
[2017-07-04] MEDS: [UNRECOGNIZED DRUG - OTHER] PO SCH (18:29)
[2017-07-04] MEDS: CALCIUM CARBONATE PO SCH (18:29)
[2017-07-04] MEDS: TURMERIC 500 MG PO SCH (18:30)
[2017-07-04] MEDS: HYPROMELLOSE EYEBOTH PRN (18:34)
[2017-07-04] MEDS: DEXTRAN EYEBOTH PRN (18:34)
[2017-07-04] MEDS: [UNRECOGNIZED DRUG - OTHER] TOP PRN (23:37)
[2017-07-04] MEDS: Menthol/Methyl Salicylate 85 GM Tube TOP PRN (23:37)
[2017-07-04] MEDS: Menthol/Zinc Oxide Ointment 3.5 GM Tube TOP PRN (23:38)
[2017-07-04] MEDS: [UNRECOGNIZED DRUG - OTHER] TOP PRN (23:39)
[2017-07-05] MEDS: LEVOTHYROXINE PO SCH (06:07)
[2017-07-05] MEDS: CHOLECALCIFEROL 2000 UNIT PO SCH (10:37)
[2017-07-05] MEDS: Acetaminophen 500 MG Tab PO SCH (10:38)
[2017-07-05] MEDS: PRADAXA 150 MG PO SCH ×2 (10:38→19:26)
[2017-07-05] MEDS: UBIDECARENONE 200 MG PO SCH (10:39)
[2017-07-05] MEDS: DEXTRAN EYEBOTH PRN (10:40)
[2017-07-05] MEDS: HYPROMELLOSE EYEBOTH PRN (10:40)
[2017-07-05] MEDS: CALCIUM CARBONATE PO SCH (19:26)
[2017-07-05] MEDS: ZINC GLUCONATE PO SCH (19:26)
[2017-07-05] MEDS: MAGNESIUM OXIDE PO SCH (19:26)
[2017-07-05] MEDS: [UNRECOGNIZED DRUG - OTHER] PO SCH (19:27)
[2017-07-05] MEDS: TURMERIC 500 MG PO SCH (19:27)
[2017-07-05] MEDS: PREMARIN VAGINAL SCH (23:49)
[2017-07-05] MEDS: Menthol/Methyl Salicylate 85 GM Tube TOP PRN (23:49)
[2017-07-05] MEDS: Menthol/Zinc Oxide Ointment 3.5 GM Tube TOP PRN (23:50)
[2017-07-05] MEDS: [UNRECOGNIZED DRUG - OTHER] TOP PRN (23:50)
[2017-07-06] MEDS: LEVOTHYROXINE PO SCH (06:13)
[2017-07-06] MEDS: PRADAXA 150 MG PO SCH ×2 (09:47→18:24)
[2017-07-06] MEDS: Acetaminophen 500 MG Tab PO SCH (09:48)
[2017-07-06] MEDS: CHOLECALCIFEROL 2000 UNIT PO SCH (09:49)
[2017-07-06] MEDS: UBIDECARENONE 200 MG PO SCH (09:49)
[2017-07-06] MEDS: [UNRECOGNIZED DRUG - OTHER] TOP PRN ×2 (09:52→21:06)
[2017-07-06] MEDS: MAGNESIUM OXIDE PO SCH (18:25)
[2017-07-06] MEDS: [UNRECOGNIZED DRUG - OTHER] PO SCH (18:25)
[2017-07-06] MEDS: CALCIUM CARBONATE PO SCH (18:25)
[2017-07-06] MEDS: ZINC GLUCONATE PO SCH (18:25)
[2017-07-06] MEDS: TURMERIC 500 MG PO SCH (18:25)
[2017-07-06] MEDS: Menthol/Zinc Oxide Ointment 3.5 GM Tube TOP PRN (21:07)
[2017-07-07] MEDS: LEVOTHYROXINE PO SCH (08:20)
[2017-07-07] MEDS: UBIDECARENONE 200 MG PO SCH (10:08)
[2017-07-07] MEDS: PRADAXA 150 MG PO SCH ×2 (10:08→18:20)
[2017-07-07] MEDS: CHOLECALCIFEROL 2000 UNIT PO SCH (10:08)
[2017-07-07] MEDS: Acetaminophen 500 MG Tab PO SCH (10:09)
[2017-07-07] MEDS: [UNRECOGNIZED DRUG - OTHER] PO SCH (18:20)
[2017-07-07] MEDS: ZINC GLUCONATE PO SCH (18:20)
[2017-07-07] MEDS: CALCIUM CARBONATE PO SCH (18:20)
[2017-07-07] MEDS: MAGNESIUM OXIDE PO SCH (18:20)
[2017-07-07] MEDS: TURMERIC 500 MG PO SCH (18:20)
[2017-07-08] MEDS: LEVOTHYROXINE PO SCH (06:31)
[2017-07-08] MEDS: UBIDECARENONE 200 MG PO SCH (10:29)
[2017-07-08] MEDS: CHOLECALCIFEROL 2000 UNIT PO SCH (10:30)
[2017-07-08] MEDS: HYPROMELLOSE EYEBOTH PRN (10:30)
[2017-07-08] MEDS: DEXTRAN EYEBOTH PRN (10:30)
[2017-07-08] MEDS: Acetaminophen 500 MG Tab PO SCH (10:30)
[2017-07-08] MEDS: PRADAXA 150 MG PO SCH ×2 (10:30→18:18)
[2017-07-08] MEDS: MAGNESIUM OXIDE PO SCH (18:17)
[2017-07-08] MEDS: [UNRECOGNIZED DRUG - OTHER] PO SCH (18:17)
[2017-07-08] MEDS: CALCIUM CARBONATE PO SCH (18:17)
[2017-07-08] MEDS: ZINC GLUCONATE PO SCH (18:17)
[2017-07-08] MEDS: TURMERIC 500 MG PO SCH (18:18)
[2017-07-09] MEDS: LEVOTHYROXINE PO SCH (06:34)
[2017-07-09] MEDS: PRADAXA 150 MG PO SCH ×2 (10:22→17:59)
[2017-07-09] MEDS: UBIDECARENONE 200 MG PO SCH (10:22)
[2017-07-09] MEDS: CHOLECALCIFEROL 2000 UNIT PO SCH (10:22)
[2017-07-09] MEDS: Acetaminophen 500 MG Tab PO SCH (10:22)
[2017-07-09] MEDS: [UNRECOGNIZED DRUG - OTHER] TOP PRN (10:23)
[2017-07-09] MEDS: TURMERIC 500 MG PO SCH (17:59)
[2017-07-09] MEDS: [UNRECOGNIZED DRUG - OTHER] PO SCH (17:59)
[2017-07-09] MEDS: MAGNESIUM OXIDE PO SCH (17:59)
[2017-07-09] MEDS: CALCIUM CARBONATE PO SCH (17:59)
[2017-07-09] MEDS: ZINC GLUCONATE PO SCH (17:59)
[2017-07-10] MEDS: LEVOTHYROXINE PO SCH (06:50)
--- NOTE | 2017-07-10 08:28 | PN ---
Progress Note for EMILY SHEETS Date: 07/09/2017 Room #: SUBJECTIVE: This is a 30 day followup visit on an 87-year-old on swing bed for continued care with ADLs. She was last seen on 06/13, after we reviewed her lab work. She has been feeling well. She is not having as much vaginal irritation. She is not having any chest pain, no shortness of breath. OBJECTIVE: VITAL SIGNS: Her temperature is 97.5, pulse 57, respiratory rate 16, O2 94 on room air, blood pressure 139/77. GENERAL: She is in no acute distress. HEART: Regularly irregular with murmur. LUNGS: Sounds are clear to auscultation bilaterally without crackles or wheezes. EXTREMITIES: Warm and dry. No edema. MENTAL STATUS: She is alert. She is orientated x3. ASSESSMENT: 1. Atrial fibrillation on Pradaxa for stroke prevention. 2. Impaired mobility due to severe osteoarthritis in the knees. 3. Essential hypertension, controlled. 4. Hypothyroidism, treated. 5. Chronic vulvar and vaginal irritation, improved. PLAN: At this point, we will continue the same cares, see her for reassessment in 30 days or sooner if needed. MKA: 07/09/2017 17:58:45 MODL: 07/09/2017 18:24:01 /[id number]
[2017-07-10] MEDS: CHOLECALCIFEROL 2000 UNIT PO SCH (10:09)
[2017-07-10] MEDS: PRADAXA 150 MG PO SCH ×2 (10:09→18:21)
[2017-07-10] MEDS: Acetaminophen 500 MG Tab PO PRN (10:10)
[2017-07-10] MEDS: UBIDECARENONE 200 MG PO SCH (10:10)
[2017-07-10] MEDS: Acetaminophen 500 MG Tab PO SCH (10:11)
[2017-07-10] MEDS: DEXTRAN EYEBOTH PRN (10:12)
[2017-07-10] MEDS: HYPROMELLOSE EYEBOTH PRN (10:12)
[2017-07-10] MEDS: CALCIUM CARBONATE PO SCH (18:21)
[2017-07-10] MEDS: TURMERIC 500 MG PO SCH (18:21)
[2017-07-10] MEDS: ZINC GLUCONATE PO SCH (18:21)
[2017-07-10] MEDS: MAGNESIUM OXIDE PO SCH (18:21)
[2017-07-10] MEDS: [UNRECOGNIZED DRUG - OTHER] PO SCH (18:21)
[2017-07-11] MEDS: Acetaminophen 500 MG Tab PO SCH (10:18)
[2017-07-11] MEDS: PRADAXA 150 MG PO SCH ×2 (10:19→18:02)
[2017-07-11] MEDS: CHOLECALCIFEROL 2000 UNIT PO SCH (10:19)
[2017-07-11] MEDS: UBIDECARENONE 200 MG PO SCH (10:19)
[2017-07-11] MEDS: TURMERIC 500 MG PO SCH (18:02)
[2017-07-11] MEDS: ZINC GLUCONATE PO SCH (18:03)
[2017-07-11] MEDS: [UNRECOGNIZED DRUG - OTHER] PO SCH (18:03)
[2017-07-11] MEDS: CALCIUM CARBONATE PO SCH (18:03)
[2017-07-11] MEDS: MAGNESIUM OXIDE PO SCH (18:03)
[2017-07-11] MEDS: [UNRECOGNIZED DRUG - OTHER] TOP PRN (23:42)
[2017-07-11] MEDS: [UNRECOGNIZED DRUG - OTHER] TOP PRN (23:47)
[2017-07-11] MEDS: Menthol/Zinc Oxide Ointment 3.5 GM Tube TOP PRN (23:47)
[2017-07-12] MEDS: LEVOTHYROXINE PO SCH (06:01)
[2017-07-12] MEDS: CHOLECALCIFEROL 2000 UNIT PO SCH (09:59)
[2017-07-12] MEDS: PRADAXA 150 MG PO SCH ×2 (10:00→18:46)
[2017-07-12] MEDS: Acetaminophen 500 MG Tab PO SCH (10:00)
[2017-07-12] MEDS: UBIDECARENONE 200 MG PO SCH (10:02)
[2017-07-12] MEDS: TURMERIC 500 MG PO SCH (18:45)
[2017-07-12] MEDS: MAGNESIUM OXIDE PO SCH (18:46)
[2017-07-12] MEDS: ZINC GLUCONATE PO SCH (18:46)
[2017-07-12] MEDS: CALCIUM CARBONATE PO SCH (18:46)
[2017-07-12] MEDS: DEXTRAN EYEBOTH PRN (18:47)
[2017-07-12] MEDS: HYPROMELLOSE EYEBOTH PRN (18:47)
[2017-07-12] MEDS: [UNRECOGNIZED DRUG - OTHER] PO SCH (18:47)
[2017-07-12] MEDS: PREMARIN VAGINAL SCH (23:23)
[2017-07-12] MEDS: [UNRECOGNIZED DRUG - OTHER] TOP PRN (23:23)
[2017-07-12] MEDS: Menthol/Zinc Oxide Ointment 3.5 GM Tube TOP PRN (23:24)
[2017-07-13] MEDS: LEVOTHYROXINE PO SCH (06:05)
[2017-07-13] MEDS: CHOLECALCIFEROL 2000 UNIT PO SCH (09:51)
[2017-07-13] MEDS: Acetaminophen 500 MG Tab PO SCH (09:51)
[2017-07-13] MEDS: UBIDECARENONE 200 MG PO SCH (09:51)
[2017-07-13] MEDS: PRADAXA 150 MG PO SCH ×2 (09:52→18:02)
[2017-07-13] MEDS: [UNRECOGNIZED DRUG - OTHER] PO SCH (18:01)
[2017-07-13] MEDS: CALCIUM CARBONATE PO SCH (18:02)
[2017-07-13] MEDS: TURMERIC 500 MG PO SCH (18:02)
[2017-07-13] MEDS: MAGNESIUM OXIDE PO SCH (18:02)
[2017-07-13] MEDS: ZINC GLUCONATE PO SCH (18:02)
[2017-07-13] MEDS: [UNRECOGNIZED DRUG - OTHER] TOP PRN (23:26)
[2017-07-13] MEDS: [UNRECOGNIZED DRUG - OTHER] TOP PRN (23:26)
[2017-07-13] MEDS: Menthol/Zinc Oxide Ointment 3.5 GM Tube TOP PRN (23:28)
[2017-07-14] MEDS: LEVOTHYROXINE PO SCH (06:17)
[2017-07-14] MEDS: PRADAXA 150 MG PO SCH ×2 (10:24→18:01)
[2017-07-14] MEDS: UBIDECARENONE 200 MG PO SCH (10:25)
[2017-07-14] MEDS: Acetaminophen 500 MG Tab PO SCH (10:25)
[2017-07-14] MEDS: CHOLECALCIFEROL 2000 UNIT PO SCH (10:25)
[2017-07-14] MEDS: CALCIUM CARBONATE PO SCH (18:02)
[2017-07-14] MEDS: TURMERIC 500 MG PO SCH (18:02)
[2017-07-14] MEDS: MAGNESIUM OXIDE PO SCH (18:02)
[2017-07-14] MEDS: [UNRECOGNIZED DRUG - OTHER] PO SCH (18:02)
[2017-07-14] MEDS: ZINC GLUCONATE PO SCH (18:02)
[2017-07-15] MEDS: LEVOTHYROXINE PO SCH (06:26)
[2017-07-15] MEDS: UBIDECARENONE 200 MG PO SCH (10:11)
[2017-07-15] MEDS: CHOLECALCIFEROL 2000 UNIT PO SCH (10:11)
[2017-07-15] MEDS: PRADAXA 150 MG PO SCH ×2 (10:12→18:42)
[2017-07-15] MEDS: Acetaminophen 500 MG Tab PO SCH (10:13)
[2017-07-15] MEDS: DEXTRAN EYEBOTH PRN (10:15)
[2017-07-15] MEDS: HYPROMELLOSE EYEBOTH PRN (10:15)
[2017-07-15] MEDS: ZINC GLUCONATE PO SCH (18:43)
[2017-07-15] MEDS: [UNRECOGNIZED DRUG - OTHER] PO SCH (18:43)
[2017-07-15] MEDS: CALCIUM CARBONATE PO SCH (18:43)
[2017-07-15] MEDS: TURMERIC 500 MG PO SCH (18:43)
[2017-07-15] MEDS: MAGNESIUM OXIDE PO SCH (18:43)
[2017-07-16] MEDS: LEVOTHYROXINE PO SCH (06:53)
[2017-07-16] MEDS: UBIDECARENONE 200 MG PO SCH (09:47)
[2017-07-16] MEDS: PRADAXA 150 MG PO SCH ×2 (09:47→18:39)
[2017-07-16] MEDS: CHOLECALCIFEROL 2000 UNIT PO SCH (09:47)
[2017-07-16] MEDS: Acetaminophen 500 MG Tab PO SCH (09:48)
[2017-07-16] MEDS: [UNRECOGNIZED DRUG - OTHER] PO SCH (18:38)
[2017-07-16] MEDS: TURMERIC 500 MG PO SCH (18:39)
[2017-07-16] MEDS: CALCIUM CARBONATE PO SCH (18:39)
[2017-07-16] MEDS: ZINC GLUCONATE PO SCH (18:39)
[2017-07-16] MEDS: MAGNESIUM OXIDE PO SCH (18:39)
[2017-07-17] MEDS: LEVOTHYROXINE PO SCH (06:40)
[2017-07-17] MEDS: PRADAXA 150 MG PO SCH ×2 (10:52→18:05)
[2017-07-17] MEDS: UBIDECARENONE 200 MG PO SCH (10:53)
[2017-07-17] MEDS: Acetaminophen 500 MG Tab PO SCH (10:53)
[2017-07-17] MEDS: CHOLECALCIFEROL 2000 UNIT PO SCH (10:53)
[2017-07-17] MEDS: HYPROMELLOSE EYEBOTH PRN (10:54)
[2017-07-17] MEDS: DEXTRAN EYEBOTH PRN (10:54)
[2017-07-17] MEDS: TURMERIC 500 MG PO SCH (18:05)
[2017-07-17] MEDS: ZINC GLUCONATE PO SCH (18:05)
[2017-07-17] MEDS: CALCIUM CARBONATE PO SCH (18:05)
[2017-07-17] MEDS: [UNRECOGNIZED DRUG - OTHER] PO SCH (18:05)
[2017-07-17] MEDS: MAGNESIUM OXIDE PO SCH (18:05)
[2017-07-18] MEDS: PRADAXA 150 MG PO SCH ×2 (10:32→18:05)
[2017-07-18] MEDS: UBIDECARENONE 200 MG PO SCH (10:33)
[2017-07-18] MEDS: CHOLECALCIFEROL 2000 UNIT PO SCH (10:33)
[2017-07-18] MEDS: Acetaminophen 500 MG Tab PO SCH (10:33)
[2017-07-18] MEDS: DEXTRAN EYEBOTH PRN (10:34)
[2017-07-18] MEDS: HYPROMELLOSE EYEBOTH PRN (10:34)
[2017-07-18] MEDS: [UNRECOGNIZED DRUG - OTHER] TOP PRN (10:35)
[2017-07-18] MEDS: CALCIUM CARBONATE PO SCH (18:05)
[2017-07-18] MEDS: [UNRECOGNIZED DRUG - OTHER] PO SCH (18:05)
[2017-07-18] MEDS: MAGNESIUM OXIDE PO SCH (18:05)
[2017-07-18] MEDS: ZINC GLUCONATE PO SCH (18:05)
[2017-07-18] MEDS: TURMERIC 500 MG PO SCH (18:06)
[2017-07-19] MEDS: [UNRECOGNIZED DRUG - OTHER] TOP PRN (00:09)
[2017-07-19] MEDS: [UNRECOGNIZED DRUG - OTHER] TOP PRN ×3 (00:09→23:21)
[2017-07-19] MEDS: Menthol/Zinc Oxide Ointment 3.5 GM Tube TOP PRN ×2 (00:09→23:21)
[2017-07-19] MEDS: LEVOTHYROXINE PO SCH (06:30)
[2017-07-19] MEDS: Acetaminophen 500 MG Tab PO SCH (10:01)
[2017-07-19] MEDS: UBIDECARENONE 200 MG PO SCH (10:02)
[2017-07-19] MEDS: CHOLECALCIFEROL 2000 UNIT PO SCH (10:02)
[2017-07-19] MEDS: PRADAXA 150 MG PO SCH ×2 (10:02→18:10)
[2017-07-19] MEDS: HYPROMELLOSE EYEBOTH PRN (10:04)
[2017-07-19] MEDS: DEXTRAN EYEBOTH PRN (10:04)
[2017-07-19] MEDS: TURMERIC 500 MG PO SCH (18:11)
[2017-07-19] MEDS: MAGNESIUM OXIDE PO SCH (18:11)
[2017-07-19] MEDS: CALCIUM CARBONATE PO SCH (18:11)
[2017-07-19] MEDS: ZINC GLUCONATE PO SCH (18:11)
[2017-07-19] MEDS: [UNRECOGNIZED DRUG - OTHER] PO SCH (18:12)
[2017-07-19] MEDS: PREMARIN VAGINAL SCH (23:20)
[2017-07-20] MEDS: LEVOTHYROXINE PO SCH (06:21)
[2017-07-20] MEDS: PRADAXA 150 MG PO SCH ×2 (10:06→18:58)
[2017-07-20] MEDS: UBIDECARENONE 200 MG PO SCH (10:07)
[2017-07-20] MEDS: Acetaminophen 500 MG Tab PO SCH (10:07)
[2017-07-20] MEDS: CHOLECALCIFEROL 2000 UNIT PO SCH (10:07)
[2017-07-20] MEDS: TURMERIC 500 MG PO SCH (18:57)
[2017-07-20] MEDS: [UNRECOGNIZED DRUG - OTHER] PO SCH (18:57)
[2017-07-20] MEDS: MAGNESIUM OXIDE PO SCH (18:58)
[2017-07-20] MEDS: ZINC GLUCONATE PO SCH (18:58)
[2017-07-20] MEDS: CALCIUM CARBONATE PO SCH (18:58)
[2017-07-21] MEDS: LEVOTHYROXINE PO SCH (06:35)
[2017-07-21] MEDS: UBIDECARENONE 200 MG PO SCH (10:20)
[2017-07-21] MEDS: Acetaminophen 500 MG Tab PO SCH (10:21)
[2017-07-21] MEDS: PRADAXA 150 MG PO SCH ×2 (10:21→18:01)
[2017-07-21] MEDS: CHOLECALCIFEROL 2000 UNIT PO SCH (10:21)
[2017-07-21] MEDS: HYPROMELLOSE EYEBOTH PRN (10:22)
[2017-07-21] MEDS: DEXTRAN EYEBOTH PRN (10:22)
[2017-07-21] MEDS: [UNRECOGNIZED DRUG - OTHER] TOP PRN ×2 (10:22→23:32)
[2017-07-21] MEDS: ZINC GLUCONATE PO SCH (18:01)
[2017-07-21] MEDS: [UNRECOGNIZED DRUG - OTHER] PO SCH (18:01)
[2017-07-21] MEDS: CALCIUM CARBONATE PO SCH (18:01)
[2017-07-21] MEDS: TURMERIC 500 MG PO SCH (18:01)
[2017-07-21] MEDS: MAGNESIUM OXIDE PO SCH (18:01)
[2017-07-21] MEDS: [UNRECOGNIZED DRUG - OTHER] TOP PRN (23:31)
[2017-07-21] MEDS: Menthol/Zinc Oxide Ointment 3.5 GM Tube TOP PRN (23:32)
[2017-07-22] MEDS: LEVOTHYROXINE PO SCH (06:56)
[2017-07-22] MEDS: CHOLECALCIFEROL 2000 UNIT PO SCH (09:57)
[2017-07-22] MEDS: Acetaminophen 500 MG Tab PO SCH (09:58)
[2017-07-22] MEDS: PRADAXA 150 MG PO SCH ×3 (09:58→18:41)
[2017-07-22] MEDS: UBIDECARENONE 200 MG PO SCH (09:59)
[2017-07-22] MEDS: MAGNESIUM OXIDE PO SCH ×2 (17:28→18:41)
[2017-07-22] MEDS: CALCIUM CARBONATE PO SCH ×2 (17:28→18:41)
[2017-07-22] MEDS: ZINC GLUCONATE PO SCH ×2 (17:28→18:41)
[2017-07-22] MEDS: [UNRECOGNIZED DRUG - OTHER] PO SCH ×2 (17:29→18:41)
[2017-07-22] MEDS: TURMERIC 500 MG PO SCH ×2 (17:30→18:41)
[2017-07-23] MEDS: LEVOTHYROXINE PO SCH (06:43)
[2017-07-23] MEDS: PRADAXA 150 MG PO SCH ×2 (10:08→18:08)
[2017-07-23] MEDS: UBIDECARENONE 200 MG PO SCH (10:09)
[2017-07-23] MEDS: CHOLECALCIFEROL 2000 UNIT PO SCH (10:09)
[2017-07-23] MEDS: Acetaminophen 500 MG Tab PO SCH (10:10)
[2017-07-23] MEDS: [UNRECOGNIZED DRUG - OTHER] PO SCH (18:08)
[2017-07-23] MEDS: MAGNESIUM OXIDE PO SCH (18:09)
[2017-07-23] MEDS: CALCIUM CARBONATE PO SCH (18:09)
[2017-07-23] MEDS: ZINC GLUCONATE PO SCH (18:09)
[2017-07-23] MEDS: TURMERIC 500 MG PO SCH (18:09)
[2017-07-24] MEDS: LEVOTHYROXINE PO SCH (06:03)
[2017-07-24] MEDS: Acetaminophen 500 MG Tab PO SCH (10:34)
[2017-07-24] MEDS: CHOLECALCIFEROL 2000 UNIT PO SCH (10:34)
[2017-07-24] MEDS: UBIDECARENONE 200 MG PO SCH (10:34)
[2017-07-24] MEDS: PRADAXA 150 MG PO SCH ×2 (10:35→18:05)
[2017-07-24] MEDS: DEXTRAN EYEBOTH PRN (10:36)
[2017-07-24] MEDS: HYPROMELLOSE EYEBOTH PRN (10:36)
[2017-07-24] MEDS: ZINC GLUCONATE PO SCH (18:06)
[2017-07-24] MEDS: MAGNESIUM OXIDE PO SCH (18:06)
[2017-07-24] MEDS: [UNRECOGNIZED DRUG - OTHER] PO SCH (18:06)
[2017-07-24] MEDS: TURMERIC 500 MG PO SCH (18:06)
[2017-07-24] MEDS: CALCIUM CARBONATE PO SCH (18:06)
[2017-07-25] MEDS: [UNRECOGNIZED DRUG - OTHER] TOP PRN ×2 (00:15→23:27)
[2017-07-25] MEDS: [UNRECOGNIZED DRUG - OTHER] TOP PRN ×2 (00:15→23:27)
[2017-07-25] MEDS: Menthol/Zinc Oxide Ointment 3.5 GM Tube TOP PRN ×2 (00:16→23:27)
[2017-07-25] MEDS: Acetaminophen 500 MG Tab PO SCH (10:26)
[2017-07-25] MEDS: PRADAXA 150 MG PO SCH ×2 (10:27→19:12)
[2017-07-25] MEDS: CHOLECALCIFEROL 2000 UNIT PO SCH (10:27)
[2017-07-25] MEDS: UBIDECARENONE 200 MG PO SCH (10:27)
[2017-07-25] MEDS: ZINC GLUCONATE PO SCH (19:12)
[2017-07-25] MEDS: CALCIUM CARBONATE PO SCH (19:12)
[2017-07-25] MEDS: MAGNESIUM OXIDE PO SCH (19:12)
[2017-07-25] MEDS: TURMERIC 500 MG PO SCH (19:12)
[2017-07-25] MEDS: [UNRECOGNIZED DRUG - OTHER] PO SCH (19:12)
[2017-07-26] MEDS: LEVOTHYROXINE PO SCH (06:09)
[2017-07-26] MEDS: CHOLECALCIFEROL 2000 UNIT PO SCH (10:38)
[2017-07-26] MEDS: UBIDECARENONE 200 MG PO SCH (10:38)
[2017-07-26] MEDS: Acetaminophen 500 MG Tab PO SCH (10:39)
[2017-07-26] MEDS: PRADAXA 150 MG PO SCH ×2 (10:39→19:32)
[2017-07-26] MEDS: [UNRECOGNIZED DRUG - OTHER] PO SCH (19:32)
[2017-07-26] MEDS: TURMERIC 500 MG PO SCH (19:32)
[2017-07-26] MEDS: ZINC GLUCONATE PO SCH (19:32)
[2017-07-26] MEDS: CALCIUM CARBONATE PO SCH (19:32)
[2017-07-26] MEDS: MAGNESIUM OXIDE PO SCH (19:32)
[2017-07-26] MEDS: PREMARIN VAGINAL SCH (23:47)
[2017-07-26] MEDS: Menthol/Zinc Oxide Ointment 3.5 GM Tube TOP PRN (23:47)
[2017-07-26] MEDS: [UNRECOGNIZED DRUG - OTHER] TOP PRN (23:47)
[2017-07-27] MEDS: LEVOTHYROXINE PO SCH (06:46)
[2017-07-27] MEDS: PRADAXA 150 MG PO SCH ×2 (09:39→19:02)
[2017-07-27] MEDS: Acetaminophen 500 MG Tab PO SCH (09:39)
[2017-07-27] MEDS: CHOLECALCIFEROL 2000 UNIT PO SCH (09:39)
[2017-07-27] MEDS: UBIDECARENONE 200 MG PO SCH (09:39)
[2017-07-27] MEDS: [UNRECOGNIZED DRUG - OTHER] PO SCH (19:01)
[2017-07-27] MEDS: MAGNESIUM OXIDE PO SCH (19:02)
[2017-07-27] MEDS: TURMERIC 500 MG PO SCH (19:02)
[2017-07-27] MEDS: CALCIUM CARBONATE PO SCH (19:02)
[2017-07-27] MEDS: ZINC GLUCONATE PO SCH (19:02)
[2017-07-27] MEDS: [UNRECOGNIZED DRUG - OTHER] TOP PRN (23:37)
[2017-07-27] MEDS: Menthol/Zinc Oxide Ointment 3.5 GM Tube TOP PRN (23:40)
[2017-07-28] MEDS: PRADAXA 150 MG PO SCH ×2 (13:40→18:16)
[2017-07-28] MEDS: UBIDECARENONE 200 MG PO SCH (13:40)
[2017-07-28] MEDS: Acetaminophen 500 MG Tab PO SCH (13:40)
[2017-07-28] MEDS: LEVOTHYROXINE PO SCH (13:40)
[2017-07-28] MEDS: CHOLECALCIFEROL 2000 UNIT PO SCH (13:40)
[2017-07-28] MEDS: [UNRECOGNIZED DRUG - OTHER] PO SCH (18:17)
[2017-07-28] MEDS: ZINC GLUCONATE PO SCH (18:17)
[2017-07-28] MEDS: CALCIUM CARBONATE PO SCH (18:17)
[2017-07-28] MEDS: MAGNESIUM OXIDE PO SCH (18:17)
[2017-07-28] MEDS: TURMERIC 500 MG PO SCH (18:17)
[2017-07-29] MEDS: LEVOTHYROXINE PO SCH (06:02)
[2017-07-29] MEDS: CHOLECALCIFEROL 2000 UNIT PO SCH (11:02)
[2017-07-29] MEDS: UBIDECARENONE 200 MG PO SCH (11:02)
[2017-07-29] MEDS: Acetaminophen 500 MG Tab PO SCH (11:02)
[2017-07-29] MEDS: PRADAXA 150 MG PO SCH ×3 (11:02→18:11)
[2017-07-29] MEDS: MAGNESIUM OXIDE PO SCH ×2 (17:31→18:11)
[2017-07-29] MEDS: CALCIUM CARBONATE PO SCH ×2 (17:31→18:11)
[2017-07-29] MEDS: ZINC GLUCONATE PO SCH ×2 (17:31→18:11)
[2017-07-29] MEDS: TURMERIC 500 MG PO SCH ×2 (17:32→18:11)
[2017-07-29] MEDS: [UNRECOGNIZED DRUG - OTHER] PO SCH ×2 (17:32→18:11)
[2017-07-30] MEDS: LEVOTHYROXINE PO SCH (06:28)
[2017-07-30] MEDS: PRADAXA 150 MG PO SCH ×2 (09:42→18:10)
[2017-07-30] MEDS: Acetaminophen 500 MG Tab PO SCH (09:43)
[2017-07-30] MEDS: CHOLECALCIFEROL 2000 UNIT PO SCH (09:43)
[2017-07-30] MEDS: UBIDECARENONE 200 MG PO SCH (09:43)
[2017-07-30] MEDS: [UNRECOGNIZED DRUG - OTHER] PO SCH (18:10)
[2017-07-30] MEDS: TURMERIC 500 MG PO SCH (18:11)
[2017-07-30] MEDS: ZINC GLUCONATE PO SCH (18:11)
[2017-07-30] MEDS: MAGNESIUM OXIDE PO SCH (18:11)
[2017-07-30] MEDS: CALCIUM CARBONATE PO SCH (18:11)
[2017-07-30] MEDS: DEXTRAN EYEBOTH PRN (20:39)
[2017-07-30] MEDS: HYPROMELLOSE EYEBOTH PRN (20:39)
[2017-07-31] MEDS: LEVOTHYROXINE PO SCH (06:05)
[2017-07-31] MEDS: UBIDECARENONE 200 MG PO SCH (10:18)
[2017-07-31] MEDS: CHOLECALCIFEROL 2000 UNIT PO SCH (10:18)
[2017-07-31] MEDS: PRADAXA 150 MG PO SCH ×2 (10:18→19:35)
[2017-07-31] MEDS: HYPROMELLOSE EYEBOTH PRN (10:19)
[2017-07-31] MEDS: DEXTRAN EYEBOTH PRN (10:19)
[2017-07-31] MEDS: Acetaminophen 500 MG Tab PO SCH (10:20)
[2017-07-31] MEDS: TURMERIC 500 MG PO SCH (19:35)
[2017-07-31] MEDS: CALCIUM CARBONATE PO SCH (19:36)
[2017-07-31] MEDS: ZINC GLUCONATE PO SCH (19:36)
[2017-07-31] MEDS: MAGNESIUM OXIDE PO SCH (19:36)
[2017-07-31] MEDS: [UNRECOGNIZED DRUG - OTHER] PO SCH (19:36)
[2017-08-01] MEDS: UBIDECARENONE 200 MG PO SCH (10:28)
[2017-08-01] MEDS: PRADAXA 150 MG PO SCH ×2 (10:28→18:12)
[2017-08-01] MEDS: CHOLECALCIFEROL 2000 UNIT PO SCH (10:28)
[2017-08-01] MEDS: Acetaminophen 500 MG Tab PO SCH (10:29)
[2017-08-01] MEDS: TURMERIC 500 MG PO SCH (18:12)
[2017-08-01] MEDS: CALCIUM CARBONATE PO SCH (18:12)
[2017-08-01] MEDS: MAGNESIUM OXIDE PO SCH (18:12)
[2017-08-01] MEDS: ZINC GLUCONATE PO SCH (18:12)
[2017-08-01] MEDS: [UNRECOGNIZED DRUG - OTHER] PO SCH (18:12)
[2017-08-02] MEDS: LEVOTHYROXINE PO SCH (06:23)
[2017-08-02] MEDS: CHOLECALCIFEROL 2000 UNIT PO SCH (09:42)
[2017-08-02] MEDS: UBIDECARENONE 200 MG PO SCH (09:42)
[2017-08-02] MEDS: Acetaminophen 500 MG Tab PO SCH (09:43)
[2017-08-02] MEDS: PRADAXA 150 MG PO SCH ×3 (09:43→18:12)
[2017-08-02] MEDS: MAGNESIUM OXIDE PO SCH ×2 (17:49→18:12)
[2017-08-02] MEDS: CALCIUM CARBONATE PO SCH ×2 (17:49→18:12)
[2017-08-02] MEDS: [UNRECOGNIZED DRUG - OTHER] PO SCH ×2 (17:49→18:12)
[2017-08-02] MEDS: ZINC GLUCONATE PO SCH ×2 (17:49→18:12)
[2017-08-02] MEDS: TURMERIC 500 MG PO SCH ×2 (17:50→18:12)
[2017-08-02] MEDS: PREMARIN VAGINAL SCH (23:43)
[2017-08-03] MEDS: LEVOTHYROXINE PO SCH (06:20)
[2017-08-03] MEDS: CHOLECALCIFEROL 2000 UNIT PO SCH (10:33)
[2017-08-03] MEDS: Acetaminophen 500 MG Tab PO SCH (10:33)
[2017-08-03] MEDS: UBIDECARENONE 200 MG PO SCH (10:33)
[2017-08-03] MEDS: PRADAXA 150 MG PO SCH ×2 (10:33→18:24)
[2017-08-03] MEDS: TURMERIC 500 MG PO SCH (18:24)
[2017-08-03] MEDS: [UNRECOGNIZED DRUG - OTHER] PO SCH (18:25)
[2017-08-03] MEDS: ZINC GLUCONATE PO SCH (18:25)
[2017-08-03] MEDS: MAGNESIUM OXIDE PO SCH (18:25)
[2017-08-03] MEDS: CALCIUM CARBONATE PO SCH (18:25)
[2017-08-04] MEDS: LEVOTHYROXINE PO SCH (06:19)
[2017-08-04] MEDS: PRADAXA 150 MG PO SCH ×2 (10:20→18:59)
[2017-08-04] MEDS: CHOLECALCIFEROL 2000 UNIT PO SCH (10:20)
[2017-08-04] MEDS: UBIDECARENONE 200 MG PO SCH (10:20)
[2017-08-04] MEDS: Acetaminophen 500 MG Tab PO SCH (10:21)
[2017-08-04] MEDS: DEXTRAN EYEBOTH PRN (10:26)
[2017-08-04] MEDS: HYPROMELLOSE EYEBOTH PRN (10:26)
[2017-08-04] MEDS: [UNRECOGNIZED DRUG - OTHER] PO SCH (18:59)
[2017-08-04] MEDS: CALCIUM CARBONATE PO SCH (19:00)
[2017-08-04] MEDS: ZINC GLUCONATE PO SCH (19:00)
[2017-08-04] MEDS: TURMERIC 500 MG PO SCH (19:00)
[2017-08-04] MEDS: MAGNESIUM OXIDE PO SCH (19:00)
[2017-08-05] MEDS: LEVOTHYROXINE PO SCH (06:20)
[2017-08-05] MEDS: UBIDECARENONE 200 MG PO SCH (09:48)
[2017-08-05] MEDS: CHOLECALCIFEROL 2000 UNIT PO SCH (09:48)
[2017-08-05] MEDS: PRADAXA 150 MG PO SCH ×2 (09:49→18:43)
[2017-08-05] MEDS: Acetaminophen 500 MG Tab PO SCH (09:49)
[2017-08-05] MEDS: TURMERIC 500 MG PO SCH (18:44)
[2017-08-05] MEDS: ZINC GLUCONATE PO SCH (18:44)
[2017-08-05] MEDS: CALCIUM CARBONATE PO SCH (18:44)
[2017-08-05] MEDS: [UNRECOGNIZED DRUG - OTHER] PO SCH (18:44)
[2017-08-05] MEDS: MAGNESIUM OXIDE PO SCH (18:44)
[2017-08-06] MEDS: LEVOTHYROXINE PO SCH (06:48)
[2017-08-06] MEDS: PRADAXA 150 MG PO SCH ×2 (10:48→18:33)
[2017-08-06] MEDS: UBIDECARENONE 200 MG PO SCH (10:49)
[2017-08-06] MEDS: CHOLECALCIFEROL 2000 UNIT PO SCH (10:49)
[2017-08-06] MEDS: Acetaminophen 500 MG Tab PO SCH (10:49)
[2017-08-06] MEDS: [UNRECOGNIZED DRUG - OTHER] PO SCH (18:32)
[2017-08-06] MEDS: TURMERIC 500 MG PO SCH (18:32)
[2017-08-06] MEDS: ZINC GLUCONATE PO SCH (18:32)
[2017-08-06] MEDS: CALCIUM CARBONATE PO SCH (18:32)
[2017-08-06] MEDS: MAGNESIUM OXIDE PO SCH (18:32)
[2017-08-07] MEDS: LEVOTHYROXINE PO SCH (06:36)
[2017-08-07] MEDS: HYPROMELLOSE EYEBOTH PRN (10:06)
[2017-08-07] MEDS: UBIDECARENONE 200 MG PO SCH (10:06)
[2017-08-07] MEDS: CHOLECALCIFEROL 2000 UNIT PO SCH (10:06)
[2017-08-07] MEDS: DEXTRAN EYEBOTH PRN (10:06)
[2017-08-07] MEDS: Acetaminophen 500 MG Tab PO SCH (10:07)
[2017-08-07] MEDS: PRADAXA 150 MG PO SCH ×2 (10:07→18:11)
[2017-08-07] MEDS: TURMERIC 500 MG PO SCH (18:11)
[2017-08-07] MEDS: [UNRECOGNIZED DRUG - OTHER] PO SCH (18:11)
[2017-08-07] MEDS: CALCIUM CARBONATE PO SCH (18:12)
[2017-08-07] MEDS: MAGNESIUM OXIDE PO SCH (18:12)
[2017-08-07] MEDS: ZINC GLUCONATE PO SCH (18:12)
[2017-08-08] MEDS: PRADAXA 150 MG PO SCH ×2 (10:20→18:20)
[2017-08-08] MEDS: CHOLECALCIFEROL 2000 UNIT PO SCH (10:21)
[2017-08-08] MEDS: UBIDECARENONE 200 MG PO SCH (10:21)
[2017-08-08] MEDS: Acetaminophen 500 MG Tab PO SCH (10:22)
[2017-08-08] MEDS: MAGNESIUM OXIDE PO SCH (18:20)
[2017-08-08] MEDS: [UNRECOGNIZED DRUG - OTHER] PO SCH (18:20)
[2017-08-08] MEDS: CALCIUM CARBONATE PO SCH (18:20)
[2017-08-08] MEDS: ZINC GLUCONATE PO SCH (18:20)
[2017-08-08] MEDS: TURMERIC 500 MG PO SCH (18:20)
[2017-08-09] MEDS: LEVOTHYROXINE PO SCH (08:10)
[2017-08-09] MEDS: CHOLECALCIFEROL 2000 UNIT PO SCH (10:50)
[2017-08-09] MEDS: Acetaminophen 500 MG Tab PO SCH (10:51)
[2017-08-09] MEDS: UBIDECARENONE 200 MG PO SCH (10:51)
[2017-08-09] MEDS: PRADAXA 150 MG PO SCH ×2 (10:54→18:25)
[2017-08-09] MEDS: [UNRECOGNIZED DRUG - OTHER] PO SCH (18:26)
[2017-08-09] MEDS: ZINC GLUCONATE PO SCH (18:26)
[2017-08-09] MEDS: CALCIUM CARBONATE PO SCH (18:26)
[2017-08-09] MEDS: TURMERIC 500 MG PO SCH (18:26)
[2017-08-09] MEDS: MAGNESIUM OXIDE PO SCH (18:26)
[2017-08-09] MEDS: PREMARIN VAGINAL SCH (23:52)
[2017-08-09] MEDS: Menthol/Zinc Oxide Ointment 3.5 GM Tube TOP PRN (23:54)
[2017-08-09] MEDS: [UNRECOGNIZED DRUG - OTHER] TOP PRN (23:54)
[2017-08-10] MEDS: LEVOTHYROXINE PO SCH (06:27)
[2017-08-10] MEDS: Acetaminophen 500 MG Tab PO SCH (10:56)
[2017-08-10] MEDS: PRADAXA 150 MG PO SCH ×2 (10:57→18:41)
[2017-08-10] MEDS: CHOLECALCIFEROL 2000 UNIT PO SCH (10:57)
[2017-08-10] MEDS: UBIDECARENONE 200 MG PO SCH (10:58)
[2017-08-10] MEDS: DEXTRAN EYEBOTH PRN (10:59)
[2017-08-10] MEDS: HYPROMELLOSE EYEBOTH PRN (10:59)
[2017-08-10] MEDS: Miconazole 2% Top Powder 45 GM Container TOP PRN (10:59)
[2017-08-10] MEDS: [UNRECOGNIZED DRUG - OTHER] TOP PRN ×2 (11:00→23:00)
[2017-08-10] MEDS: [UNRECOGNIZED DRUG - OTHER] PO SCH (18:41)
[2017-08-10] MEDS: MAGNESIUM OXIDE PO SCH (18:41)
[2017-08-10] MEDS: ZINC GLUCONATE PO SCH (18:41)
[2017-08-10] MEDS: CALCIUM CARBONATE PO SCH (18:41)
[2017-08-10] MEDS: TURMERIC 500 MG PO SCH (18:42)
[2017-08-10] MEDS: Menthol/Zinc Oxide Ointment 3.5 GM Tube TOP PRN (23:00)
[2017-08-10] MEDS: [UNRECOGNIZED DRUG - OTHER] TOP PRN (23:00)
[2017-08-11] MEDS: LEVOTHYROXINE PO SCH (06:08)
[2017-08-11] MEDS: UBIDECARENONE 200 MG PO SCH (09:22)
[2017-08-11] MEDS: CHOLECALCIFEROL 2000 UNIT PO SCH (09:23)
[2017-08-11] MEDS: Acetaminophen 500 MG Tab PO SCH (09:24)
[2017-08-11] MEDS: PRADAXA 150 MG PO SCH (09:24)
[2017-08-11 09:50] VITALS: BP 118/62
[~2017-08-11 13:22] MED LIST: Betamethasone Dipropionate/Clotrimazole 0.05-1% Crm 15 GM Tube TOP SCH; Clobetasol 0.05% Crm 30 GM Tube TOP SCH; DABIGATRAN 150 MG PO SCH; FLU VACCINE IM ONE; FLU Vacc TS 2017-18 (65yr UP)/PF 180 MCG/0.5 ML Syringe IM ONE; Flu Vaccine 2016-17(36Mos+)/PF 60 MCG/0.5 ML Syringe IM ONE; Hydrocortisone 2.5% Crm 30 GM Tube TOP SCH; LEVOTHYROXINE 75 MCG PO SCH; Levothyroxine 75 MCG Tab PO SCH; PRADAXA 150 MG PO SCH; PROCTOSOL HC 2.5% SCH; Rivaroxaban 10 MG Tab PO SCH
== END | disposition swing bed (61) | DRG 309 ==
LOC: VM.MS 05-14 13:55
PROVIDERS: ADMIT Internal Medicine; ATTEND Internal Medicine
DX: I48.91 Unspecified atrial fibrillation (principal); K62.5 Hemorrhage of anus and rectum; R53.1 Weakness; E03.9 Hypothyroidism, unspecified; I10 Essential (primary) hypertension; N89.8 Other specified noninflammatory disorders of vagina; H57.8 Other specified disorders of eye and adnexa; R42 Dizziness and giddiness; M17.0 Bilateral primary osteoarthritis of knee; D69.6 Thrombocytopenia, unspecified; L57.0 Actinic keratosis; Z79.899 Other long term (current) drug therapy; Z86.73 Personal history of transient ischemic attack (TIA), and cerebral infarction without residual deficits
CPT/HCPCS: 36415; 80048; 80053; 82274; 82550; 82607; 83036; 84443; 84460; 84550; 85025; 85652; 90471; 90656; 90662; 93005; 97001-GP; 97003-GO; 97110-GP; 97116-GP; A9270-GY; G0008